=== PATIENT | male | born 1965 | race Caucasian/White ===

== ENCOUNTER 2017-06-07 12:37 | Inpatient (IN) | payer MEDICAID ==
--- NOTE | 2017-06-07 12:52 | ED Physician Chart ---
Chief Complaint/HPI - Patient Information Date Seen:: 06/07/17 Time Seen:: 12:52 Chief Complaint:: INCREASED WORK OF BRETHING, FALLING O2 SAT Historian:: EMS Past Medical History - Past Medical History Past Medical History: Asthma/COPD (patient was some form of chronic pulmonary disease.), Seizures Social History: Care Facility Employment:: Surgical tracheostomy. Family Medical History - Family Member Mother History Unknown: Yes Other Medical History: Pt non/verbal due to trach. Physical Exam - Physical Examination Other Gen/Cons comments:: Appears to be sleeping most of the time. Patient does not respond to verbal commands or questions. He appears to be well nourished. Head: Atraumatic Other Eyes comments:: The right pupil is deformed and dilated. The left pupil is round but did not seem to respond to light. Skin: Nl inspection, No rash, No skin lesions, No ecchymosis, Well hydrated, No lymphadenopathy ENMT: External ears, nose nl, Nasal exam nl Other ENMT comments:: Patient's is uncooperative with examination of the oropharynx by keeping his jaws clamped shut. Neck: Nontender, No JVD, No mass, No stridor Other Neck comments:: Tracheostomy tube in place. Other Respiratory comments:: The patient is on a ventilator and does not appear to be fighting it. Diffuse noisy breath sounds and I would characterize as rhonchi and moist rales. Cardio Vascular: RRR Other Cardio Vascular comments:: Cardiac auscultation was hampered by noisy breath sounds. I think the patient had a 3/6 systolic murmur which I heard best along the left sternal border. No gallops or rubs were noted. Patient has adequate pulses in all 4 extremities. GI: No tenderness/rebounding/guarding, No organomegaly, No hernia, Normal BS's, Nondistended, No mass/bruits, No McBurney tenderness Other GI comments:: Gastrostomy tube in the left upper quadrant. : No CVA tenderness Other comments:: External genitalia appear normal. Uncircumcised. It was a small amount of blood at the urethral meatus prior to catheterization for obtaining urine. Extremities: No tenderness or effusion, No edema Other Extremities comments:: The patient withdraws to noxious stimuli in all 4 extremities. Labs/Radiology/EKG Results - Radiology Results Results: Single view chest x-ray: No cardiomegaly. Tracheostomy tube in place. Patchy infiltrate in the left lower lung zones. Elevated left hemidiaphragm. Impression: Left lower lobe pneumonia. Laboratory Tests 06/07/17 06/07/17 06/07/17 13:25 13:28 13:28 WBC 12.2 H RBC 3.25 L Hgb 10.6 L Hct 31.6 L MCV 97.3 MCH 32.7 H MCHC Differential 33.6 RDW 16.4 Plt Count 40 L MPV 11.4 Band Neutrophils % 12 H Neutrophils (Manual) 65 Lymphocytes 17 L Monocytes 5 Metamyelocytes 1 H Platelet Estimate DECREASED PLATELETS Platelet Morphology NORMAL RBC Morph Micro Appear NORMAL Sodium Potassium Chloride Carbon Dioxide Anion Gap BUN Creatinine Est GFR ( Amer) Est GFR (Non-Af Amer) BUN/Creatinine Ratio Glucose Whole Bld Lactic Acid 1.81 Calcium Total Bilirubin AST ALT Alkaline Phosphatase Troponin I B-Natriuretic Peptide Total Protein Albumin Globulin Albumin/Globulin Ratio Urine Source RANDOM Urine Color NISA Urine Clarity CLOUDY Urine pH 5.5 Ur Specific [place] 1.020 Urine Protein >=300 Urine Glucose (UA) NEGATIVE Urine Ketones 15 H Urine Blood LARGE H Urine Nitrate POSITIVE H Urine Bilirubin MODERATE H Urine Urobilinogen 2.0 Ur Leukocyte Esterase MODERATE H Urine RBC >100 H Urine WBC 2-5 H Ur Epithelial Cells OCCASIONAL Urine Bacteria FEW 06/07/17 06/07/17 06/07/17 13:28 13:28 13:28 WBC RBC Hgb Hct MCV MCH MCHC Differential RDW Plt Count MPV Band Neutrophils % Neutrophils (Manual) Lymphocytes Monocytes Metamyelocytes Platelet Estimate Platelet Morphology RBC Morph Micro Appear Sodium 156 H Potassium 4.2 Chloride 130 H Carbon Dioxide 22.8 Anion Gap 7.4 BUN 49 H Creatinine 1.0 Est GFR ( Amer) > 60.0 Est GFR (Non-Af Amer) > 60.0 BUN/Creatinine Ratio 49.0 Glucose 107 H Whole Bld Lactic Acid Calcium 9.7 Total Bilirubin 1.2 H AST 38 ALT 27 Alkaline Phosphatase 168 H Troponin I 0.01 B-Natriuretic Peptide 91.8 Total Protein 8.2 Albumin 2.8 L Globulin 5.4 Albumin/Globulin Ratio 0.5 L Urine Source Urine Color Urine Clarity Urine pH Ur Specific [place] Urine Protein Urine Glucose (UA) Urine Ketones Urine Blood Urine Nitrate Urine Bilirubin Urine Urobilinogen Ur Leukocyte Esterase Urine RBC Urine WBC Ur Epithelial Cells Urine Bacteria There is a mild leukocytosis of 12.2. There is moderate anemia with a hemoglobin in the 10 range. Thrombocytopenia in the 40,000 range. Mild elevation of the alkaline phosphatase at 168. Hyper 90 treatment with a sodium of 156. Whole blood lactic acid is within normal limits. - EKG Interpretations EKG Time:: 14:03 Rate & Rhythm: sinus rhythm at a rate of 87 with no ectopy. [place]: normal axis Intervals: normal [place] interval. Normal QRS duration. Normal QT interval. Comments:: No ST segment elevation or depression. T waves are normal. Impression: Normal EKG. Laboratory Tests 06/07/17 06/07/17 06/07/17 13:25 13:28 13:28 WBC 12.2 H RBC 3.25 L Hgb 10.6 L Hct 31.6 L MCV 97.3 MCH 32.7 H MCHC Differential 33.6 RDW 16.4 Plt Count 40 L MPV 11.4 Band Neutrophils % 12 H Neutrophils (Manual) 65 Lymphocytes 17 L Monocytes 5 Metamyelocytes 1 H Platelet Estimate DECREASED PLATELETS Platelet Morphology NORMAL RBC Morph Micro Appear NORMAL Sodium Potassium Chloride Carbon Dioxide Anion Gap BUN Creatinine Est GFR ( Amer) Est GFR (Non-Af Amer) BUN/Creatinine Ratio Glucose Whole Bld Lactic Acid 1.81 Calcium Total Bilirubin AST ALT Alkaline Phosphatase Troponin I B-Natriuretic Peptide Total Protein Albumin Globulin Albumin/Globulin Ratio Urine Source RANDOM Urine Color NISA Urine Clarity CLOUDY Urine pH 5.5 Ur Specific [place] 1.020 Urine Protein >=300 Urine Glucose (UA) NEGATIVE Urine Ketones 15 H Urine Blood LARGE H Urine Nitrate POSITIVE H Urine Bilirubin MODERATE H Urine Urobilinogen 2.0 Ur Leukocyte Esterase MODERATE H Urine RBC >100 H Urine WBC 2-5 H Ur Epithelial Cells OCCASIONAL Urine Bacteria FEW 06/07/17 06/07/17 06/07/17 13:28 13:28 13:28 WBC RBC Hgb Hct MCV MCH MCHC Differential RDW Plt Count MPV Band Neutrophils % Neutrophils (Manual) Lymphocytes Monocytes Metamyelocytes Platelet Estimate Platelet Morphology RBC Morph Micro Appear Sodium 156 H Potassium 4.2 Chloride 130 H Carbon Dioxide 22.8 Anion Gap 7.4 BUN 49 H Creatinine 1.0 Est GFR ( Amer) > 60.0 Est GFR (Non-Af Amer) > 60.0 BUN/Creatinine Ratio 49.0 Glucose 107 H Whole Bld Lactic Acid Calcium 9.7 Total Bilirubin 1.2 H AST 38 ALT 27 Alkaline Phosphatase 168 H Troponin I 0.01 B-Natriuretic Peptide 91.8 Total Protein 8.2 Albumin 2.8 L Globulin 5.4 Albumin/Globulin Ratio 0.5 L Urine Source Urine Color Urine Clarity Urine pH Ur Specific [place] Urine Protein Urine Glucose (UA) Urine Ketones Urine Blood Urine Nitrate Urine Bilirubin Urine Urobilinogen Ur Leukocyte Esterase Urine RBC Urine WBC Ur Epithelial Cells Urine Bacteria Assessment - Assessment General Assessment: CASE SUMMARY: This 52 YO MALE WAS SENT TO THE ED BECAUSE OF INCREASED WORK OF BREATHING AND FALLING O2 SATS. AT THE TIME OF ADMISSION HIS TEMP WAS 103.0 AND HE WAS BOARDER LINE HYPOTENSIVE. TH CXR SHOWED AN INFILTRATE IN THE LT LOWER LUNG ZONE CONSISTENT WITH PNEUMONIA. THE PT WAS TREATED WITH 30cc/kg NORMAL SALINE IV, 2 GRAMS OF CEFTRIAXONE IV AND 750 MG OF LEVAQUIN. HIS BLOOD PRESSURE CAME UP AND HIS PULSE RATE CAME DOWN. THE PT IS BEING ADMITTED TO THE ICU BECAUSE HE IS VENTALATOR DEPENDENT. MDM DDX INCREASED WORK OF BREATHING AND FALLING O2 SATURATION: NOT PULMONARY EDEMA BASED ON EXAM AND CXR. NOT PNEUMOTHORAX BASED ON CXR. NOT PLEURAL EFFUSION BASED ON CXR. ED Septic Shock - . Is Septic Shock (SBP<90, OR Lactate>4 mmol\L) present?: No Reassessment (Disposition) - Reassessment Reassessment Condition:: Improved - Diagnosis Diagnosis:: LEFT LOWER LOBE PNEUMONIA ED Discharge Plan - Patient Disposition Admit/Discharge/Transfer: Acute Care w/in this hosp
[2017-06-07] MEDS ORDERED: cefTRIAXone 2 GM in Sodium Chloride 0.9% 100 ML IV ONE (13:20)
[2017-06-07] MEDS ORDERED: Levofloxacin 750mg/150mL 750 MG/150 ML BAG IV ONE ×2 (13:21→14:00)
[2017-06-07] MEDS ORDERED: SODIUM CHLORIDE 0.9% IV ONE (13:33)
[2017-06-07 13:37] LABS: HEMATOCRIT 31.6 % (39.0-49.0); HEMOGLOBIN 10.6 gm/dL (13.2-17.3); MEAN CELL VOLUME 97.3 fl (80-99); MEAN CORPUSCULAR HEMOGLOBIN 32.7 pg (26.0-30.0); MEAN CORPUSCULAR HGB CONC 33.6 pg (28.0-36.0); MEAN PLATELET VOLUME 11.4 fl; RED BLOOD COUNT 3.25 Mil/cmm (4.30-5.70); RED CELL DISTRIBUTION WIDTH 16.4 % (11.5-20.0)
[2017-06-07 13:38] LABS: PLATELET COUNT 40 Th/cmm (150-400); WHITE BLOOD COUNT 12.2 Th/cmm (4.8-10.8)
[2017-06-07 13:53] LABS: ALB/GLOB RATIO 0.5 (1.0-1.8); ALKALINE PHOSPHATASE 168 U/L (34-104); ANION GAP 7.4 (7.0-16.0); BILIRUBIN,TOTAL 1.2 mg/dL (0.3-1.0); BUN - UREA NITROGEN 49 mg/dL (7-25); CALCIUM SERUM 9.7 mg/dL (8.6-10.3); CARBON DIOXIDE 22.8 mEq/L (21.0-31.0); CHLORIDE 130 mEq/L (98-107); GLUCOSE 107 mg/dL (70-105); POTASSIUM SERUM 4.2 mEq/L (3.5-5.1); SGOT 38 U/L (13-39); SGPT/ALT 27 U/L (7-52); SODIUM SERUM 156 mEq/L (136-145)
[2017-06-07 14:31] LABS: BAND NEUTROPHILE 12 % (0-10); METAMYELOCYTE 1 % (0-0); NEUTROPHILS 65 % (40-80); PLATELET ESTIMATE DECREASED PLATELETS (NORMAL); PLATELET MORPHOLOGY NORMAL (NORMAL); TOTAL CELLS COUNTED 100
[2017-06-07 14:44] LABS: URINE BILIRUBIN MODERATE (NEGATIVE); URINE BLOOD LARGE (NEGATIVE); URINE GLUCOSE (UA) NEGATIVE (NEGATIVE); URINE KETONE 15 mg/dL (NEGATIVE); URINE PH 5.5 (4.6 - 8.0); URINE PROTEIN >=300 mg/dL (NEGATIVE)
[2017-06-07 15:03] LABS: URINE COLOR AMBER
[2017-06-07 15:08] LABS: URINE BACTERIA FEW /hpf (NONE SEEN); URINE EPITHELIAL CELLS OCCASIONAL /lpf (FEW); URINE RBC >100 /hpf (0-5)
[2017-06-07] MEDS ORDERED: Magnesium Hydroxide (MOM) 30 mL UDC GT PRN (19:18)
[2017-06-07] MEDS ORDERED: Fleet Enema 135 mL RC PRN (19:18)
--- NOTE | 2017-06-07 20:50 | Internal Medicine Prog Note ---
Internal Medicine Subjective - Subjective Patient seen and examined:: with staff Patient is:: non-verbal, arousable Patient Complaints of:: congestion Internal Medicine Objective - Results Result Diagrams: 06/08/17 04:59 06/08/17 04:59 Recent Labs: Laboratory Last Values WBC 12.2 Th/cmm (4.8-10.8) H 06/07/17 13:28 RBC 3.25 Mil/cmm (4.30-5.70) L 06/07/17 13:28 Hgb 10.6 gm/dL (13.2-17.3) L 06/07/17 13:28 Hct 31.6 % (39.0-49.0) L 06/07/17 13:28 MCV 97.3 fl (80-99) 06/07/17 13:28 MCH 32.7 pg (26.0-30.0) H 06/07/17 13:28 MCHC Differential 33.6 pg (28.0-36.0) 06/07/17 13:28 RDW 16.4 % (11.5-20.0) 06/07/17 13:28 Plt Count 40 Th/cmm (150-400) L 06/07/17 13:28 MPV 11.4 fl 06/07/17 13:28 Band Neutrophils % 12 % (0-10) H 06/07/17 13:28 Neutrophils (Manual) 65 % (40-80) 06/07/17 13:28 Lymphocytes 17 % (20-50) L 06/07/17 13:28 Monocytes 5 % (2-10) 06/07/17 13:28 Metamyelocytes 1 % (0-0) H 06/07/17 13:28 Platelet Estimate DECREASED PLATELETS (NORMAL) 06/07/17 13:28 Platelet Morphology NORMAL (NORMAL) 06/07/17 13:28 RBC Morph Micro Appear NORMAL (NORMAL) 06/07/17 13:28 Sodium 156 mEq/L (136-145) H 06/07/17 13:28 Potassium 4.2 mEq/L (3.5-5.1) 06/07/17 13:28 Chloride 130 mEq/L (98-107) H 06/07/17 13:28 Carbon Dioxide 22.8 mEq/L (21.0-31.0) 06/07/17 13:28 Anion Gap 7.4 (7.0-16.0) 06/07/17 13:28 BUN 49 mg/dL (7-25) H 06/07/17 13:28 Creatinine 1.0 mg/dL (0.7-1.3) 06/07/17 13:28 Est GFR ( Amer) > 60.0 ml/min (>90) 06/07/17 13:28 Est GFR (Non-Af Amer) > 60.0 ml/min 06/07/17 13:28 BUN/Creatinine Ratio 49.0 06/07/17 13:28 Glucose 107 mg/dL (70-105) H 06/07/17 13:28 Whole Bld Lactic Acid 1.81 mmol/L (0.60-1.99) 06/07/17 13:28 Calcium 9.7 mg/dL (8.6-10.3) 06/07/17 13:28 Total Bilirubin 1.2 mg/dL (0.3-1.0) H 06/07/17 13:28 AST 38 U/L (13-39) 06/07/17 13:28 ALT 27 U/L (7-52) 06/07/17 13:28 Alkaline Phosphatase 168 U/L (34-104) H 06/07/17 13:28 Troponin I 0.01 ng/mL (0.01-0.05) 06/07/17 13:28 B-Natriuretic Peptide 91.8 pg/mL (5.0-100.0) 06/07/17 13:28 Total Protein 8.2 gm/dL (6.0-8.3) 06/07/17 13:28 Albumin 2.8 gm/dL (4.2-5.5) L 06/07/17 13:28 Globulin 5.4 gm/dL 06/07/17 13:28 Albumin/Globulin Ratio 0.5 (1.0-1.8) L 06/07/17 13:28 Urine Source RANDOM 06/07/17 13:25 Urine Color NISA 06/07/17 13:25 Urine Clarity CLOUDY (CLEAR) 06/07/17 13:25 Urine pH 5.5 (4.6 - 8.0) 06/07/17 13:25 Ur Specific [place] 1.020 (1.005-1.030) 06/07/17 13:25 Urine Protein >=300 mg/dL (NEGATIVE) 06/07/17 13:25 Urine Glucose (UA) NEGATIVE mg/dL (NEGATIVE) 06/07/17 13:25 Urine Ketones 15 mg/dL (NEGATIVE) H 06/07/17 13:25 Urine Blood LARGE (NEGATIVE) H 06/07/17 13:25 Urine Nitrate POSITIVE (NEGATIVE) H 06/07/17 13:25 Urine Bilirubin MODERATE (NEGATIVE) H 06/07/17 13:25 Urine Urobilinogen 2.0 E.U./dL (0.2 - 1.0) 06/07/17 13:25 Ur Leukocyte Esterase MODERATE (NEGATIVE) H 06/07/17 13:25 Urine RBC >100 /hpf (0-5) H 06/07/17 13:25 Urine WBC 2-5 /hpf (0-5) H 06/07/17 13:25 Ur Epithelial Cells OCCASIONAL /lpf (FEW) 06/07/17 13:25 Urine Bacteria FEW /hpf (NONE SEEN) 06/07/17 13:25 - Physical Exam Vitals and I&O: Vital Signs Temp 98.7 F 06/07/17 19:51 Pulse 79 06/07/17 20:28 Resp 18 06/07/17 19:51 BP 102/45 06/07/17 19:51 Pulse Ox 97 06/07/17 20:28 Active Medications: Current Medications Albuterol/Ipratropium (Duoneb Neb) 3 ml HHN Q4HR [place] Stop: 08/06/17 19:59 Amlodipine Besylate (Norvasc) 5 mg GT Q12H [place] Stop: 08/06/17 19:14 Atorvastatin Calcium (Lipitor) 10 mg GT HS [place] PRN Reason: Protocol Stop: 08/06/17 20:59 Bisacodyl (Dulcolax 10 Mg Supp) 10 mg RC DAILY PRN PRN Reason: Constipation Stop: 08/06/17 19:17 Chlorhexidine Gluconate (Peridex) 15 ml MM Q12H [place] Stop: 08/06/17 19:29 Folic Acid (Folate) mg GT DAILY [place] Stop: 08/07/17 08:59 Hydralazine HCl (Apresoline) 50 mg GT Q8H [place] Stop: 08/06/17 19:29 Ceftriaxone Sodium 2 gm/ (Sodium Chloride) 100 mls @ 100 mls/hr IV X1 ONE Stop: 06/07/17 14:19 Last Admin: 06/07/17 16:08 Dose: 100 mls/hr Levofloxacin (Levaquin Pb) 750 mg in 150 mls @ 100 mls/hr IV X1 ONE Stop: 06/07/17 14:50 Last Admin: 06/07/17 14:00 Dose: 100 mls/hr Sodium Chloride (Nacl 0.9%) 2,289 mls @ 0 mls/hr IV .Q0M ONE PRN Reason: Wide Open Stop: 06/07/17 13:34 Last Admin: 06/07/17 13:59 Dose: 1,000 mls/hr Sodium Chloride (Nacl 0.9%) 1,000 mls @ 150 mls/hr IV .Q6H40M [place] Stop: 08/06/17 19:04 Levetiracetam (Keppra) 1,000 mg GT Q8H [place] Stop: 08/06/17 19:29 Magnesium Hydroxide (Milk Of Magnesia) 30 ml GT HS PRN PRN Reason: Constipation Stop: 08/06/17 19:17 Miscellaneous (Calcium Carbonate/Vitamin D2 [Oyster Shell Calcium-Vit D Tab]) 1 tab GT DAILY [place] Stop: 08/07/17 08:59 Miscellaneous (Clonazepam [Clonazepam*]) 2 mg GT DAILY [place] Stop: 08/07/17 08:59 Miscellaneous (Dextran 70/Hypromellose/Pf [Artificial Tears Drops]) 2 each OP Q6H PRN PRN Reason: eye dryness Miscellaneous (Dextrose 5 %-0.45 % Nacl [Dextrose 5%-0.45% Nacl Iv Soln]) 1, 000 ml IV DAILY [place] Stop: 08/07/17 08:59 Miscellaneous (Docusate Sodium [Pedia-Lax Stool Softener]) 100 mg GT BID [place] Stop: 08/07/17 08:59 Miscellaneous (Ferrous Sulfate [Ferrous Sulfate]) 330 mg GT BID [place] Stop: 08/07/17 08:59 Miscellaneous (Lactulose [Lactulose]) 30 gm GT Q8H [place] Stop: 08/06/17 19:29 Miscellaneous (Magnesium Sulfate [Magnesium Sulfate]) 400 mg GT DAILY [place] Stop: 08/07/17 08:59 Miscellaneous (Metoprolol Tartrate [Metoprolol Tartrate]) 100 mg GT Q12H [facility] Stop: 08/06/17 19:29 Miscellaneous (Omeprazole [Omeprazole]) 40 mg GT DAILY [facility] Stop: 08/07/17 08:59 Miscellaneous (Phytonadione [Vitamin K]) 100 mcg GT DAILY [facility] Stop: 08/07/17 08:59 Miscellaneous (Potassium Chloride [Klor-Con]) 20 meq GT BID [facility] Stop: 08/07/17 08:59 Miscellaneous (Rifaximin [Xifaxan]) 550 mg GT BID [facility] Stop: 08/07/17 08:59 Propranolol HCl (Inderal) 20 mg GT TID [facility] Stop: 08/06/17 20:59 Pyridoxine HCl (Vitamin B6) 100 mg GT DAILY [facility] Stop: 08/07/17 08:59 Sodium Phosphate (Fleet Enema) 135 ml RC Q48H PRN PRN Reason: IF DULCOLAX IS INEFFECTIVE Stop: 08/06/17 19:17 Thiamine HCl (Vitamin B1) 100 mg GT DAILY [facility] Stop: 08/07/17 08:59 Valproate Sodium (Depakene) 500 mg GT TID [facility] PRN Reason: Protocol Stop: 08/06/17 20:59 General: obtunded HEENT: NC/AT Neck: Supple Lungs: CTAB Abdomen: soft, +GT Extremities: clear Neurological: muscle weakness, bedbound Internal Medicine Assmt/Plan - Assessment Assessment: s/p respiratory failure pnumonia s/p trch and peg trmors h/o alcoholism h/o sizures - Plan Plan: iv antibiotics nuerology ,pul, gi consults
[2017-06-07] MEDS: Sodium Chloride 0.9% 1,000 ML IV SCH (21:06)
[2017-06-07] MEDS: Ferrous Sulfate 300 MG/5 ML UDC GT SCH (21:33)
[2017-06-07] MEDS: Lactulose 10 Gm/15 mL 30mL UDC GT SCH (21:34)
[2017-06-07] MEDS: Levetiracetam 500 mg/5mL 5mL UDC GT SCH (21:35)
[2017-06-07] MEDS: Atorvastatin Calcium 10 MG TAB GT SCH (21:38)
[2017-06-07] MEDS: Docusate Sodium 100 mg/10 mL UD GT SCH (21:41)
[2017-06-07] MEDS: Chlorhexidine Gluconate 0.12% 480mL Bottle MM SCH (21:41)
--- NOTE | 2017-06-07 21:54 | History & Physical ---
ADMIT DATE: 06/07/2017 HISTORY OF PRESENT ILLNESS: The patient is known to me from taking care of him at rehabilitation. 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 The patient is known to have history of asthma, history of COPD. Apparently for the last few days, he has been having shortness of breath and falling oxygen saturation. They called me and also the patient had severe dehydration, hyponatremia, and renal failure. The patient was transferred to the ER. The patient actually came to [facility] Emergency Room where he was seen and found to have pneumonia and increasing renal failure and hyponatremia, was admitted. PAST MEDICAL HISTORY: As enumerated above, but not much history could be obtained from the patient. REVIEW OF SYSTEMS: Difficult. PHYSICAL EXAMINATION: GENERAL: The patient appears to be lethargic, not asking questions and right pupil is dilated somewhat. NECK: Supple. No JVD. Trachea has a tracheostomy in place. LUNGS: The patient has ventilator lungs. Bilateral rhonchi, rales with mostly on the right side. Gastrotomy in the left upper quadrant. GASTROINTESTINAL: Normal. EXTREMITIES: Revealed no tenderness. The patient was tremulous. The patient is lethargic. IMAGING AND LABORATORY DATA: Chest x-ray showed cardiomegaly. WBC was 12.2, hemoglobin 10.6 and his urine also showed cloudy large blood as well as positive nitrite. DIAGNOSES: Sepsis, urinary tract infection, right lower lobe and left lower lobe infiltrate, pneumonia, toxic metabolic encephalopathy, and rule out hepatic encephalopathy, anemia, leukocytosis, history of tremors, history of status post trach and status post PEG status. PLAN: The patient is being admitted and I will start IV antibiotics therapy. We will do ammonia to see whether in the lactulose. We will continue his present medications and we will also have Dr. Landers see the patient for Pulmonary and also we will have Infectious Disease, Dr. Landers see the patient and I will follow the patient. JOB# [id number] [facility] HEALTHVenkata
[2017-06-07] MEDS: Albuterol/Ipratropium Neb 3 ML AERS HHN SCH (22:56)
[2017-06-08] MEDS: Albuterol/Ipratropium Neb 3 ML AERS HHN SCH ×6 (03:00→22:46)
[2017-06-08] MEDS: Sodium Chloride 0.9% 1,000 ML IV SCH (03:57)
[2017-06-08] MEDS: Lactulose 10 Gm/15 mL 30mL UDC GT SCH ×3 (05:16→21:31)
[2017-06-08] MEDS: Levetiracetam 500 mg/5mL 5mL UDC GT SCH ×3 (05:21→21:36)
[2017-06-08 06:48] LABS: MEAN CELL VOLUME 98.3 fl (80-99); MEAN CORPUSCULAR HEMOGLOBIN 32.8 pg (26.0-30.0); MEAN CORPUSCULAR HGB CONC 33.3 pg (28.0-36.0); MEAN PLATELET VOLUME 11.2 fl; RED CELL DISTRIBUTION WIDTH 16.8 % (11.5-20.0)
[2017-06-08 07:11] LABS: ANION GAP 6.1 (7.0-16.0); BUN - UREA NITROGEN 43 mg/dL (7-25); BUN/CREATININE RATIO 61.4; CALCIUM SERUM 8.7 mg/dL (8.6-10.3); CARBON DIOXIDE 21.4 mEq/L (21.0-31.0); CHLORIDE 135 mEq/L (98-107); CREATININE - SERUM 0.7 mg/dL (0.7-1.3); GLUCOSE 125 mg/dL (70-105); POTASSIUM SERUM 3.5 mEq/L (3.5-5.1)
[2017-06-08 07:51] LABS: HEMATOCRIT 25.6 % (39.0-49.0); HEMOGLOBIN 8.5 gm/dL (13.2-17.3); PLATELET COUNT 27 Th/cmm (150-400); WHITE BLOOD COUNT 5.7 Th/cmm (4.8-10.8)
[2017-06-08 07:52] LABS: SODIUM SERUM 159 mEq/L (136-145)
[2017-06-08] MEDS ORDERED: Sodium Chloride 0.45% 1,000 ML IV SCH (08:02)
--- NOTE | 2017-06-08 08:40 | Diagnostic Imaging Report ---
CHEST X-RAY: AP view INDICATION: Decreased low O2 sats COMPARISON: None FINDINGS: Tracheostomy tube is noted. Mild chronic lung changes are seen with increased left basal lung markings. No focal consolidation or effusions. Heart size is normal. Degenerative changes of the spine are noted. There is mild elevation of the left hemidiaphragm. There appears to be external material overlying the left hemithorax. IMPRESSION: Increased left basal lung markings which may be due to subsegmental atelectasis, however, developing infiltrate cannot be excluded. Clinical correlation and follow-up is recommended.
[2017-06-08] MEDS: Potassium Chloride Elixir 20 mEq /15 mL UDC GT SCH ×2 (08:43→17:13)
[2017-06-08] MEDS: Ferrous Sulfate 300 MG/5 ML UDC GT SCH ×2 (08:44→17:13)
[2017-06-08] MEDS: Calcium Carb/Vit D 500 mg/200 U Tab GT SCH (08:44)
[2017-06-08] MEDS: Docusate Sodium 100 mg/10 mL UD GT SCH ×2 (08:46→17:13)
--- NOTE | 2017-06-08 08:55 | General Progress Note ---
Subjective - Review of Systems Events since last encounter: patient with no distress c/o sob cough generalized weakness Objective - Results Result Diagrams: 06/08/17 04:59 06/08/17 04:59 Recent Labs: Laboratory Last Values WBC 5.7 Th/cmm (4.8-10.8) D 06/08/17 04:59 RBC 2.60 Mil/cmm (4.30-5.70) L 06/08/17 04:59 Hgb 8.5 gm/dL (13.2-17.3) L D 06/08/17 04:59 Hct 25.6 % (39.0-49.0) L D 06/08/17 04:59 MCV 98.3 fl (80-99) 06/08/17 04:59 MCH 32.8 pg (26.0-30.0) H 06/08/17 04:59 MCHC Differential 33.3 pg (28.0-36.0) 06/08/17 04:59 RDW 16.8 % (11.5-20.0) 06/08/17 04:59 Plt Count 27 Th/cmm (150-400) L* D 06/08/17 04:59 MPV 11.2 fl 06/08/17 04:59 Band Neutrophils % 12 % (0-10) H 06/07/17 13:28 Neutrophils (Manual) 65 % (40-80) 06/07/17 13:28 Lymphocytes 17 % (20-50) L 06/07/17 13:28 Monocytes 5 % (2-10) 06/07/17 13:28 Metamyelocytes 1 % (0-0) H 06/07/17 13:28 Platelet Estimate DECREASED PLATELETS (NORMAL) 06/07/17 13:28 Platelet Morphology NORMAL (NORMAL) 06/07/17 13:28 RBC Morph Micro Appear NORMAL (NORMAL) 06/07/17 13:28 Sodium 159 mEq/L (136-145) H* 06/08/17 04:59 Potassium 3.5 mEq/L (3.5-5.1) 06/08/17 04:59 Chloride 135 mEq/L (98-107) H 06/08/17 04:59 Carbon Dioxide 21.4 mEq/L (21.0-31.0) 06/08/17 04:59 Anion Gap 6.1 (7.0-16.0) L 06/08/17 04:59 BUN 43 mg/dL (7-25) H 06/08/17 04:59 Creatinine 0.7 mg/dL (0.7-1.3) 06/08/17 04:59 Est GFR ( Amer) > 60.0 ml/min (>90) 06/08/17 04:59 Est GFR (Non-Af Amer) > 60.0 ml/min 06/08/17 04:59 BUN/Creatinine Ratio 61.4 06/08/17 04:59 Glucose 125 mg/dL (70-105) H 06/08/17 04:59 Whole Bld Lactic Acid 1.51 mmol/L (0.60-1.99) 06/08/17 04:59 Calcium 8.7 mg/dL (8.6-10.3) 06/08/17 04:59 Total Bilirubin 1.2 mg/dL (0.3-1.0) H 06/07/17 13:28 AST 38 U/L (13-39) 06/07/17 13:28 ALT 27 U/L (7-52) 06/07/17 13:28 Alkaline Phosphatase 168 U/L (34-104) H 06/07/17 13:28 Troponin I 0.01 ng/mL (0.01-0.05) 06/07/17 13:28 B-Natriuretic Peptide 91.8 pg/mL (5.0-100.0) 06/07/17 13:28 Total Protein 8.2 gm/dL (6.0-8.3) 06/07/17 13:28 Albumin 2.8 gm/dL (4.2-5.5) L 06/07/17 13:28 Globulin 5.4 gm/dL 06/07/17 13:28 Albumin/Globulin Ratio 0.5 (1.0-1.8) L 06/07/17 13:28 Urine Source RANDOM 06/07/17 13:25 Urine Color NISA 06/07/17 13:25 Urine Clarity CLOUDY (CLEAR) 06/07/17 13:25 Urine pH 5.5 (4.6 - 8.0) 06/07/17 13:25 Ur Specific [place] 1.020 (1.005-1.030) 06/07/17 13:25 Urine Protein >=300 mg/dL (NEGATIVE) 06/07/17 13:25 Urine Glucose (UA) NEGATIVE mg/dL (NEGATIVE) 06/07/17 13:25 Urine Ketones 15 mg/dL (NEGATIVE) H 06/07/17 13:25 Urine Blood LARGE (NEGATIVE) H 06/07/17 13:25 Urine Nitrate POSITIVE (NEGATIVE) H 06/07/17 13:25 Urine Bilirubin MODERATE (NEGATIVE) H 06/07/17 13:25 Urine Urobilinogen 2.0 E.U./dL (0.2 - 1.0) 06/07/17 13:25 Ur Leukocyte Esterase MODERATE (NEGATIVE) H 06/07/17 13:25 Urine RBC >100 /hpf (0-5) H 06/07/17 13:25 Urine WBC 2-5 /hpf (0-5) H 06/07/17 13:25 Ur Epithelial Cells OCCASIONAL /lpf (FEW) 06/07/17 13:25 Urine Bacteria FEW /hpf (NONE SEEN) 06/07/17 13:25 - Physical Exam Vitals and I&O: Vital Signs Temp 97.7 F 06/08/17 07:34 Pulse 71 06/08/17 08:47 Resp 23 06/08/17 07:34 BP 129/46 06/08/17 08:47 Pulse Ox 100 06/08/17 07:34 Intake & Output 06/07/17 06/08/17 06/08/17 18:59 06:59 18:59 Intake Total 1300 Balance 1300 Weight (lbs) 76.204 kg Intake: Intake, IV Amount 1300 Cefepime 1 gm In Dextrose 50 5% 50 ml @ 100 mls/hr IV Q8H [place] Rx#:[id number] Sodium Chloride 0.9% 1, 1000 000 ml @ 150 mls/hr IV . Q6H40M [place] Rx#:[id number] Other: # Bowel Movements 2 Stool Characteristics Liquid Active Medications: Current Medications Albuterol/Ipratropium (Duoneb Neb) 3 ml HHN Q4HR [facility] Stop: 08/06/17 19:59 Last Admin: 06/08/17 06:46 Dose: 3 ml Amlodipine Besylate (Norvasc) 5 mg GT Q12HR [place] Stop: 08/06/17 20:59 Last Admin: 06/08/17 08:47 Dose: Not Given Artificial Tears (Artificial Tears Ophth Soln) 2 drop EACH EYE Q6H PRN PRN Reason: eye dryness Stop: 08/06/17 20:54 Atorvastatin Calcium (Lipitor) 10 mg GT HS [place] PRN Reason: Protocol Stop: 08/06/17 20:59 Last Admin: 06/07/17 21:38 Dose: 10 mg Bisacodyl (Dulcolax 10 Mg Supp) 10 mg RC DAILY PRN PRN Reason: Constipation Stop: 08/06/17 19:17 Calcium/Vitamin D (Oscal W/Vitamin D) 1 tab GT DAILY [place] Stop: 08/07/17 08:59 Last Admin: 06/08/17 08:44 Dose: 1 tab Chlorhexidine Gluconate (Peridex) 15 ml MM Q12HR [place] Stop: 08/06/17 20:59 Last Admin: 06/07/17 21:41 Dose: 15 ml Clonazepam (Klonopin) 2 mg GT DAILY [place] Stop: 08/07/17 08:59 Last Admin: 06/08/17 08:44 Dose: 2 mg Docusate Sodium (Colace) 100 mg GT BID [place] Stop: 08/06/17 20:59 Last Admin: 06/08/17 08:46 Dose: Not Given Ferrous Sulfate (Iron) 300 mg GT BID [place] Stop: 08/06/17 20:59 Last Admin: 06/08/17 08:44 Dose: 300 mg Folic Acid (Folate) 2.5 mg GT DAILY [place] Stop: 08/07/17 08:59 Last Admin: 06/08/17 08:45 Dose: 2.5 mg Hydralazine HCl (Apresoline) 50 mg GT Q8HR [place] Stop: 08/06/17 20:59 Last Admin: 06/08/17 05:16 Dose: Not Given Cefepime HCl 1 gm/ Dextrose 50 mls @ 100 mls/hr IV Q8H [place] Stop: 08/07/17 00:59 Last Infusion: 06/08/17 01:38 Dose: Infused Sodium Chloride (Nacl 0.45%) 1,000 mls @ 150 mls/hr IV .Q6H40M [place] Stop: 08/07/17 08:01 Lactulose (Cephulac) 30 gm GT Q8HR [facility] Stop: 08/06/17 20:59 Last Admin: 06/08/17 05:16 Dose: Not Given Levetiracetam (Keppra) 1,000 mg GT Q8HR [facility] Stop: 08/06/17 20:59 Last Admin: 06/08/17 05:21 Dose: 1,000 mg Magnesium Hydroxide (Milk Of Magnesia) 30 ml GT HS PRN PRN Reason: Constipation Stop: 08/06/17 19:17 Magnesium Oxide (Mag-Oxide) 400 mg GT DAILY [place] Stop: 08/07/17 08:59 Last Admin: 06/08/17 08:44 Dose: 400 mg Metoprolol Tartrate (Lopressor) 100 mg GT Q12HR [facility] Stop: 08/06/17 20:59 Last Admin: 06/08/17 08:46 Dose: Not Given Miscellaneous (Dextrose 5 %-0.45 % Nacl [Dextrose 5%-0.45% Nacl Iv Soln]) 1, 000 ml IV DAILY [facility] Stop: 08/07/17 08:59 Miscellaneous (Phytonadione [Vitamin K]) 100 mcg GT DAILY [facility] Stop: 08/07/17 08:59 Miscellaneous (Rifaximin [Xifaxan]) 550 mg GT BID [facility] Stop: 08/07/17 08:59 Miscellaneous (Vancomycin Iv Per Pharmacy) 1 ea [facility] PRN PRN PRN Reason: PROTOCOL Stop: 08/07/17 07:59 Pantoprazole Sodium (Protonix) 40 mg GT DAILY [facility] Stop: 08/07/17 08:59 Last Admin: 06/08/17 08:45 Dose: 40 mg Potassium Chloride (Potassium Chloride Elixir) 20 meq GT BID [facility] Stop: 08/07/17 08:59 Last Admin: 06/08/17 08:43 Dose: 20 meq Propranolol HCl (Inderal) 20 mg GT TID [facility] Stop: 08/06/17 20:59 Last Admin: 06/08/17 08:45 Dose: Not Given Pyridoxine HCl (Vitamin B6) 100 mg GT DAILY [facility] Stop: 08/07/17 08:59 Last Admin: 06/08/17 08:44 Dose: 100 mg Sodium Phosphate (Fleet Enema) 135 ml RC Q48H PRN PRN Reason: IF DULCOLAX IS INEFFECTIVE Stop: 08/06/17 19:17 Thiamine HCl (Vitamin B1) 100 mg GT DAILY [facility] Stop: 08/07/17 08:59 Last Admin: 06/08/17 08:44 Dose: 100 mg Valproate Sodium (Depakene) 500 mg GT TID [facility] PRN Reason: Protocol Stop: 08/06/17 20:59 Last Admin: 06/08/17 08:44 Dose: 500 mg General: No acute distress Cardiovascular: Regular rate, Normal S1 Assessment/Plan - Problem List Patient Problems: All Active Problems ELEVATED NA+, AND BUN LEVELS (Acute) - Plan Plan: cpm
[2017-06-08] MEDS ORDERED: SODIUM CHLORIDE IV SCH (09:00)
[2017-06-08] MEDS ORDERED: DEXTROSE IV SCH (09:00)
[2017-06-08] MEDS ORDERED: Non-Formulary Item 1 EA (Rifaximin [Xifaxan] 550 MG) GT SCH (09:00)
[2017-06-08] MEDS ORDERED: [UNRECOGNIZED DRUG - OTHER] IV SCH (09:00)
[2017-06-08] MEDS ORDERED: Pantoprazole 40 mg/Packet GT SCH (09:00)
[2017-06-08] MEDS ORDERED: PHYTONADIONE 100 MCG GT SCH (09:00)
[2017-06-08] MEDS: Dextrose 5% 1,000 ML IV SCH ×2 (09:58→20:47)
[2017-06-08] MEDS: Chlorhexidine Gluconate 0.12% 480mL Bottle MM SCH ×2 (09:59→21:00)
[2017-06-08] MEDS ORDERED: Probiotic Screen MC PRN (10:43)
[2017-06-08 11:24] LABS: BAND NEUTROPHILE 8 % (0-10); EOSINOPHIL 4 % (0-5); METAMYELOCYTE 1 % (0-0); NEUTROPHILS 58 % (40-80); TOTAL CELLS COUNTED 100
[2017-06-08 11:25] LABS: ANISOCYTOSIS 1+; PLATELET ESTIMATE DECREASED PLATELETS (NORMAL); PLATELET MORPHOLOGY NORMAL (NORMAL)
--- NOTE | 2017-06-08 12:30 | Consultation ---
DATE OF CONSULTATION: 06/08/2017 HEMATOLOGY/ONCOLOGY CONSULTATION REFERRING PHYSICIAN: Dr. Ren. REASON FOR CONSULTATION: Thrombocytopenia and anemia. HISTORY OF PRESENT ILLNESS: The patient is a 52-year-old male on tracheostomy and gastric tube bleeding. He was admitted with urinary tract infection, lung infiltrates, started on antibiotics. He was found to have low platelets and platelets dropper further, today is 27,000, hemoglobin on admission 10.6 and now it is 8.5, therefore, I was asked to evaluate. History is gathered from the records. The patient is not providing any history. PAST MEDICAL HISTORY: Chronic liver disease, alcohol abuse in the past and history of seizure and coma, history of COPD. MEDICATIONS: Reviewed prior to admission and during this admission. PHYSICAL EXAMINATION: GENERAL: The patient is opening eyes, lethargic, noncommunicative. VITAL SIGNS: Stable. GENERAL: The patient is noncommunicative as mentioned with tracheostomy and gastric tube, Lackey catheter and no cherise bleeding from any site. LABORATORY DATA: White count 5.7, platelets 27. Albumin 2.8, bilirubin 1.2. Chest x-ray, left lower lobe infiltrate. ASSESSMENT: 1. Thrombocytopenia seems to be chronic secondary to chronic liver disease and cirrhosis. I will obtain liver ultrasound. I will start empiric trial of steroids and discontinue Protonix. 2. Anemia, which was since admission, may be secondary to dilutional component. I will obtain a stool occult blood and iron studies, B12 and folate level. I will also obtain coagulation panel. 3. The rest of the medical problems will be deferred to other consultants. Thank you Dr. Ren for the opportunity to participate in the care of this interesting case with you. JOB# [id number]
[2017-06-08] MEDS: Budesonide 0.5 Mg/2 mL Ud HHN SCH (19:10)
--- NOTE | 2017-06-08 21:30 | Progress Notes ---
DATE: 06/08/2017 REFERRING PHYSICIAN: Dr. Mikal Ro REASON FOR CONSULTATION: Help the patient with respiratory failure, acute on chronic. CONSULT NOTE: This is a 52-year-old gentleman who is on a chronic vent and has a history of significant hepatorenal disease with alcohol liver disease and also has been in hepatic coma numerous times in the past requiring ventilator care, has been having tracheostomy for the last couple of months and subsequently is being managed by local rehabilitation center. As the patient continued to have more shortness of breath, more desaturation, and worsening renal status and electrolyte imbalance, the patient was admitted for further care and necessary treatment. Unfortunately, meaningful detailed history is very difficult ____ not available. PAST MEDICAL HISTORY: 1. Chronic vent dependent. 2. History of recurrent alcoholic liver disease as well as alcoholic encephalopathy as well as renal failure. Other history is very minimal to nil at this particular time. PHYSICAL EXAMINATION: GENERAL: This is an elderly looking gentleman, opens eyes, but not in acute distress. VITAL SIGNS: The patient's recorded vitals: Temperature is 97.2, pulse rate is 70, blood pressure 122/70, saturation is 100% on 40% FIO2 on assist control mode of ventilator. HEAD: Essentially unremarkable. Pupils appear to be equal and reactive to light. Sclerae are icteric. Conjunctivae are slightly pallor. Oral cavity appears to show teeth, but could not open the mouth to see posterior pharyngeal fossa. NECK: Supple. No nodes in the neck could be palpated. Good bilateral carotid upstroke. There is a tracheostomy tube at the base of the neck and it appears to be okay. CHEST: Shows diminished air entry with occasional rhonchi. HEART: Regular. ABDOMEN: Slightly distended. EXTREMITIES: Shows some atrophic changes, but otherwise unremarkable. LABORATORY DATA: The patient's pertinent laboratory studies: White count is 12.2, hemoglobin 10.6. Sodium is 156, BUN is 49, creatinine 1.0, and the patient's lactic acid 1.8 and albumin is 2.8 and urine shows large blood with positive moderate bilirubin with a positive leukocyte esterase, though bacteria is a few. Chest x-ray to md shows some questionable infiltrate and/or atelectasis patchy on the left lung base, otherwise tracheostomy tube appears to be okay. ASSESSMENT: 1. The patient has acute on chronic respiratory failure, probably pneumonia, though underlying atelectasis. 2. Dehydration. 3. Previous alcoholic liver disease with renal failure as well as encephalopathy. PLANS AND SUGGESTIONS: We will go ahead and give aggressive inhalation treatment and mucolytic treatment. Await for the cultures to come back cardiac electrolytes, renal failure, etc. We will see how he does. We will follow up with repeat chest x-ray, blood gases, and culture and go from there. [facility]# [id number]
[2017-06-08] MEDS: Atorvastatin Calcium 10 MG TAB GT SCH (21:32)
--- NOTE | 2017-06-08 21:50 | Consultation ---
DATE OF CONSULTATION: 06/07/2017 PRIMARY CARE PHYSICIAN: Dr. Ren. REASON FOR CONSULTATION: This is a 52-year-old male, who was brought to the Emergency Room with a complaint of shortness of breath. HISTORY OF PRESENT ILLNESS: The patient is in vent-dependent respiratory failure, started having shortness of breath, and #[id number] was called. The patient was brought to the Emergency Room where the patient was evaluated and admitted to the ICU for [id number] respiratory failure. A stat infectious consultation was called and the patient was seen right away. The patient also had a fever up to 103 and was hypotensive. The patient's chest x-ray also showed an infiltrate on the left side consistent with pneumonia. The patient was given a fluid bolus and Rocephin along with Levaquin before transferring to the ICU. The patient is unable to provide a meaningful history. Discussed with the staff. PAST MEDICAL HISTORY: COPD, seizures. SOCIAL HISTORY: Nonsmoker. FAMILY HISTORY: Negative. ALLERGIES: None. REVIEW OF SYSTEMS: A 14-point review of systems is unable to obtain. No chest pain documented. The patient did have shortness of breath with fever. No nausea, vomiting, diarrhea. The patient does not have any history of HIV, hepatitis. Rest of the review of system reviewed and negative. PHYSICAL EXAMINATION: GENERAL: A well-nourished, well-developed male. VITAL SIGNS: Temperature 98.7, pulse 67, respirations 18, blood pressure 102/45. HEENT: Mild pallor, no icterus, ____. NECK: Supple, ____. No thyromegaly. No cervical lymph nodes. LUNGS: Breath sounds bilateral vesicular. CARDIOVASCULAR: S1, S2. ABDOMEN: Soft. Bowel sounds present. LYMPHATIC: No thyromegaly, no cervical lymph nodes. Pulses palpable in all the limbs. NEUROLOGIC: Reflexes are equal on both sides, plantars are flexor. LABORATORY DATA: White count is 12,000, hemoglobin is 10 g, platelet count ____. Chest x-ray reviewed and showed increased left basal markings and developing infiltrate. DIAGNOSES: Respiratory failure, acute on chronic. OTHER DIAGNOSES: Seizures and COPD. Renew home medications and control hypertension with amlodipine; hyperlipidemia, atorvastatin; constipation, bisacodyl; seizures controlled with Keppra; liver cirrhosis, rifaximin. PLAN: Continue vent support. Sputum cultures sent. The patient was started on vancomycin, Maxipime, and Levaquin. We will discontinue other antibiotics, supportive care, and rest of the care as ordered in CPOE. Thank you, Dr. Ren for this consultation. JOB# [id number]
--- NOTE | 2017-06-08 22:46 | Consultation ---
DATE OF CONSULTATION: 06/08/2017 This is a 52-year-old patient who was brought into the hospital from extended care facility because of problems associated with abnormal lab studies showing significant degree of azotemia, hypernatremia with increasing respiratory difficulties, decreasing O2 saturation, and altered level of consciousness. ER evaluation noted to have anemia, thrombocytopenia, concentrated urine of , urinary nitrates positive, hypernatremia 156, and BUN of 40 and 18, febrile and borderline blood pressure of 102/44 with the patient having a tracheostomy which he has been having that from an extended care facility. PHYSICAL EXAMINATION: VITAL SIGNS: Blood pressure 107/45, temperature 97.5, heart rate 73, and respiratory rate is 28. Opens his eyes. ____. CHEST: Clear to auscultation. HEART: Regular sinus. ABDOMEN: Soft. Bowel sounds are present. No organ enlargement. EXTREMITIES: No edema. GENITALIA: The presence of indwelling Lackey catheter and an uncircumcised urinating significant amount of fluid. Initial catheter insertion 200 mL was noted. Chest x-ray is essentially clear. IMPRESSION: 1. Hyperosmolar state and hypernatremia secondary to free water deficit in this patient. 2. Free water deficit secondary with dehydration. 3. Respiratory failure with tracheostomy. 4. Rule out possibility of septicemia in this patient with the patient coming in with temperature of 103, likely elevated lactic acid, positive for nitrate. We required blood cultures, which were originally obtained. Urine cultures for some reason were not sent and we are requesting that at this point. PLAN: Change ____ fluid to D5 and water at 155 mL per hour. Aware of the presence of G-tube feeding of 55 which results about 200 mL per hour of fluid. There is no evidence of fluid overload and this patient required massive free water administration at this time. Cultures are requested. Antibiotic review on admission. This patient was given Rocephin and Levaquin. He required prophylactic antibiotics and the cultures were obtained which will direct us to the proper antibiotic therapy at this point. JOB# [id number]
[2017-06-09] MEDS: Albuterol/Ipratropium Neb 3 ML AERS HHN SCH ×7 (02:55→22:19)
[2017-06-09 05:23] LABS: MEAN CORPUSCULAR HGB CONC 34.1 pg (28.0-36.0); RED CELL DISTRIBUTION WIDTH 15.9 % (11.5-20.0)
[2017-06-09] MEDS: Levetiracetam 500 mg/5mL 5mL UDC GT SCH ×3 (05:38→21:34)
[2017-06-09] MEDS: Lactulose 10 Gm/15 mL 30mL UDC GT SCH ×3 (05:38→18:00)
[2017-06-09 05:43] LABS: HEMATOCRIT 24.9 % (39.0-49.0); HEMOGLOBIN 8.5 gm/dL (13.2-17.3); MEAN CORPUSCULAR HEMOGLOBIN 33.1 pg (26.0-30.0); MEAN PLATELET VOLUME 10.9 fl; RED BLOOD COUNT 2.56 Mil/cmm (4.30-5.70)
[2017-06-09 05:50] LABS: ALB/GLOB RATIO 0.5 (1.0-1.8); ALKALINE PHOSPHATASE 171 U/L (34-104); ANION GAP 6.3 (7.0-16.0); BILIRUBIN,TOTAL 0.8 mg/dL (0.3-1.0); BUN - UREA NITROGEN 25 mg/dL (7-25); BUN/CREATININE RATIO 41.7; CALCIUM SERUM 8.6 mg/dL (8.6-10.3); CARBON DIOXIDE 22.7 mEq/L (21.0-31.0); CHLORIDE 122 mEq/L (98-107); CREATININE - SERUM 0.6 mg/dL (0.7-1.3); GLUCOSE 121 mg/dL (70-105); MAGNESIUM 2.2 mg/dL (1.9-2.7); SGOT 34 U/L (13-39); SGPT/ALT 20 U/L (7-52); SODIUM SERUM 148 mEq/L (136-145)
[2017-06-09 06:02] LABS: WHITE BLOOD COUNT 3.6 Th/cmm (4.8-10.8)
[2017-06-09] MEDS: Dextrose 5% 1,000 ML IV SCH ×2 (07:33→21:08)
[2017-06-09] MEDS ORDERED: Potassium Chloride Elixir 20 mEq /15 mL UDC GT ONE (08:00)
--- NOTE | 2017-06-09 08:02 | General Progress Note ---
Subjective - Review of Systems Subjective: on vent, afebrile nad Objective - Results Result Diagrams: 06/09/17 09:30 06/09/17 05:07 Recent Labs: Laboratory Last Values WBC 3.6 Th/cmm (4.8-10.8) L D 06/09/17 05:07 RBC 2.56 Mil/cmm (4.30-5.70) L 06/09/17 05:07 Hgb 8.5 gm/dL (13.2-17.3) L 06/09/17 05:07 Hct 24.9 % (39.0-49.0) L 06/09/17 05:07 MCV 97.0 fl (80-99) 06/09/17 05:07 MCH 33.1 pg (26.0-30.0) H 06/09/17 05:07 MCHC Differential 34.1 pg (28.0-36.0) 06/09/17 05:07 RDW 15.9 % (11.5-20.0) 06/09/17 05:07 Plt Count 21 Th/cmm (150-400) L* 06/09/17 05:07 MPV 10.9 fl 06/09/17 05:07 Band Neutrophils % 8 % (0-10) 06/08/17 04:59 Neutrophils (Manual) 58 % (40-80) 06/08/17 04:59 Lymphocytes 24 % (20-50) 06/08/17 04:59 Monocytes 5 % (2-10) 06/08/17 04:59 Eosinophils 4 % (0-5) 06/08/17 04:59 Metamyelocytes 1 % (0-0) H 06/08/17 04:59 Nucleated RBCs 1.0 % (0-0) H 06/08/17 04:59 Platelet Estimate DECREASED PLATELETS (NORMAL) 06/08/17 04:59 Platelet Morphology NORMAL (NORMAL) 06/08/17 04:59 Anisocytosis 1+ 06/08/17 04:59 RBC Morph Micro Appear ABNORMAL (NORMAL) 06/08/17 04:59 Sodium 148 mEq/L (136-145) H 06/09/17 05:07 Potassium 3.0 mEq/L (3.5-5.1) L 06/09/17 05:07 Chloride 122 mEq/L (98-107) H 06/09/17 05:07 Carbon Dioxide 22.7 mEq/L (21.0-31.0) 06/09/17 05:07 Anion Gap 6.3 (7.0-16.0) L 06/09/17 05:07 BUN 25 mg/dL (7-25) 06/09/17 05:07 Creatinine 0.6 mg/dL (0.7-1.3) L 06/09/17 05:07 Est GFR ( Amer) > 60.0 ml/min (>90) 06/09/17 05:07 Est GFR (Non-Af Amer) > 60.0 ml/min 06/09/17 05:07 BUN/Creatinine Ratio 41.7 06/09/17 05:07 Glucose 121 mg/dL (70-105) H 06/09/17 05:07 Whole Bld Lactic Acid 1.51 mmol/L (0.60-1.99) 06/08/17 04:59 Calcium 8.6 mg/dL (8.6-10.3) 06/09/17 05:07 Phosphorus 2.7 mg/dL (2.5-5.0) 06/08/17 04:59 Magnesium 2.2 mg/dL (1.9-2.7) 06/09/17 05:07 Total Bilirubin 0.8 mg/dL (0.3-1.0) 06/09/17 05:07 Direct Bilirubin 0.40 mg/dL (0.0-0.2) H 06/09/17 05:07 AST 34 U/L (13-39) 06/09/17 05:07 ALT 20 U/L (7-52) 06/09/17 05:07 Alkaline Phosphatase 171 U/L (34-104) H 06/09/17 05:07 Ammonia 64 umol/L (16-53) H 06/09/17 05:07 Troponin I 0.01 ng/mL (0.01-0.05) 06/07/17 13:28 B-Natriuretic Peptide 91.8 pg/mL (5.0-100.0) 06/07/17 13:28 Total Protein 6.8 gm/dL (6.0-8.3) 06/09/17 05:07 Albumin 2.3 gm/dL (4.2-5.5) L 06/09/17 05:07 Globulin 4.5 gm/dL 06/09/17 05:07 Albumin/Globulin Ratio 0.5 (1.0-1.8) L 06/09/17 05:07 Urine Source RANDOM 06/07/17 13:25 Urine Color NISA 06/07/17 13:25 Urine Clarity CLOUDY (CLEAR) 06/07/17 13:25 Urine pH 5.5 (4.6 - 8.0) 06/07/17 13:25 Ur Specific [place] 1.020 (1.005-1.030) 06/07/17 13:25 Urine Protein >=300 mg/dL (NEGATIVE) 06/07/17 13:25 Urine Glucose (UA) NEGATIVE mg/dL (NEGATIVE) 06/07/17 13:25 Urine Ketones 15 mg/dL (NEGATIVE) H 06/07/17 13:25 Urine Blood LARGE (NEGATIVE) H 06/07/17 13:25 Urine Nitrate POSITIVE (NEGATIVE) H 06/07/17 13:25 Urine Bilirubin MODERATE (NEGATIVE) H 06/07/17 13:25 Urine Urobilinogen 2.0 E.U./dL (0.2 - 1.0) 06/07/17 13:25 Ur Leukocyte Esterase MODERATE (NEGATIVE) H 06/07/17 13:25 Urine RBC >100 /hpf (0-5) H 06/07/17 13:25 Urine WBC 2-5 /hpf (0-5) H 06/07/17 13:25 Ur Epithelial Cells OCCASIONAL /lpf (FEW) 06/07/17 13:25 Urine Bacteria FEW /hpf (NONE SEEN) 06/07/17 13:25 Ur Random Sodium 119 mmol/L 06/08/17 18:16 - Physical Exam Vitals and I&O: Vital Signs Temp 98.6 F 06/09/17 04:00 Pulse 67 06/09/17 07:00 Resp 15 06/09/17 07:00 BP 124/52 06/09/17 07:00 Pulse Ox 100 06/09/17 07:00 Intake & Output 06/08/17 06/09/17 06/09/17 18:59 06:59 18:59 Intake Total 1350 1300 335 Output Total 850 600 Balance 500 1300 -265 Weight (lbs) 76.204 kg 76.657 kg Intake: Intake, IV Amount 1350 1300 Cefepime 1 gm In Dextrose 100 50 5% 50 ml @ 100 mls/hr IV Q8H [facility] Rx#:[id number] Dextrose 5% 1,000 ml @ 1000 1000 150 mls/hr IV .Q6H40M [facility] Rx#:[id number] Vancomycin HCl 1.25 gm In 250 250 Sodium Chloride 0.9% 250 ml @ 165 mls/hr IV Q12H [facility] Rx#:[id number] Tube Feeding 275 Other 60 Output: Urine 850 600 Other: # Bowel Movements 0 1 Stool Characteristics Liquid Active Medications: Current Medications Albuterol/Ipratropium (Duoneb Neb) 3 ml HHN Q4HR [place] Stop: 08/06/17 19:59 Last Admin: 06/09/17 06:58 Dose: 3 ml Albuterol/Ipratropium (Duoneb Neb) 3 ml HHN Q4HRT [facility] Stop: 08/07/17 18:59 Amlodipine Besylate (Norvasc) 5 mg GT Q12HR [place] Stop: 08/06/17 20:59 Last Admin: 06/08/17 21:46 Dose: 5 mg Artificial Tears (Artificial Tears Ophth Soln) 2 drop EACH EYE Q6H PRN PRN Reason: eye dryness Stop: 08/06/17 20:54 Atorvastatin Calcium (Lipitor) 10 mg GT HS [place] PRN Reason: Protocol Stop: 08/06/17 20:59 Last Admin: 06/08/17 21:32 Dose: 10 mg Bisacodyl (Dulcolax 10 Mg Supp) 10 mg RC DAILY PRN PRN Reason: Constipation Stop: 08/06/17 19:17 Budesonide (Pulmicort) 0.5 mg HHN BIDRT [facility] Stop: 08/07/17 18:59 Last Admin: 06/08/17 19:10 Dose: 0.5 mg Calcium/Vitamin D (Oscal W/Vitamin D) 1 tab GT DAILY [facility] Stop: 08/07/17 08:59 Last Admin: 06/08/17 08:44 Dose: 1 tab Chlorhexidine Gluconate (Peridex) 15 ml MM Q12HR [place] Stop: 08/06/17 20:59 Last Admin: 06/08/17 21:00 Dose: 15 ml Clonazepam (Klonopin) 2 mg GT DAILY [facility] Stop: 08/07/17 08:59 Last Admin: 06/08/17 08:44 Dose: 2 mg Docusate Sodium (Colace) 100 mg GT BID [place] Stop: 08/06/17 20:59 Last Admin: 06/08/17 17:13 Dose: 100 mg Ferrous Sulfate (Iron) 300 mg GT BID [place] Stop: 08/06/17 20:59 Last Admin: 06/08/17 17:13 Dose: 300 mg Folic Acid (Folate) 2.5 mg GT DAILY [place] Stop: 08/07/17 08:59 Last Admin: 06/08/17 08:45 Dose: 2.5 mg Hydralazine HCl (Apresoline) 50 mg GT Q8HR [place] Stop: 08/06/17 20:59 Last Admin: 06/09/17 05:38 Dose: Not Given Cefepime HCl 1 gm/ Dextrose 50 mls @ 100 mls/hr IV Q8H [place] Stop: 08/07/17 00:59 Last Infusion: 06/09/17 01:00 Dose: Infused Vancomycin HCl 1.25 gm/ Sodium (Chloride) 250 mls @ 165 mls/hr IV Q12H [place] Stop: 08/07/17 09:59 Last Infusion: 06/09/17 00:22 Dose: Infused Dextrose (D5w) 1,000 mls @ 150 mls/hr IV .Q6H40M [place] Stop: 08/07/17 09:37 Last Admin: 06/09/17 07:33 Dose: 150 mls/hr Lactobacillus Rhamnosus (Culturelle) 1 each PO DAILY [facility] Stop: 08/08/17 08:59 Lactulose (Cephulac) 30 gm GT Q8HR [place] Stop: 08/06/17 20:59 Last Admin: 06/09/17 05:38 Dose: Not Given Levetiracetam (Keppra) 1,000 mg GT Q8HR [place] Stop: 08/06/17 20:59 Last Admin: 06/09/17 05:38 Dose: Not Given Magnesium Hydroxide (Milk Of Magnesia) 30 ml GT HS PRN PRN Reason: Constipation Stop: 08/06/17 19:17 Magnesium Oxide (Mag-Oxide) 400 mg GT DAILY [place] Stop: 08/07/17 08:59 Last Admin: 06/08/17 08:44 Dose: 400 mg Metoprolol Tartrate (Lopressor) 100 mg GT Q12HR [facility] Stop: 08/06/17 20:59 Last Admin: 06/08/17 21:47 Dose: Not Given Miscellaneous (Vancomycin Iv Per Pharmacy) 1 ea PRN PRN PRN Reason: PROTOCOL Stop: 08/07/17 07:59 Miscellaneous (Probiotic Screen) 1 ea PRN PRN PRN Reason: PROTOCOL Stop: 08/07/17 10:42 Phytonadione (Mephyton) 10 mg GT DAILY [facility] Stop: 08/07/17 19:59 Last Admin: 06/08/17 20:48 Dose: Not Given Potassium Chloride (Potassium Chloride Elixir) 20 meq GT BID [facility] Stop: 08/07/17 08:59 Last Admin: 06/08/17 17:13 Dose: 20 meq Propranolol HCl (Inderal) 20 mg GT TID [facility] Stop: 08/06/17 20:59 Last Admin: 06/08/17 21:48 Dose: Not Given Pyridoxine HCl (Vitamin B6) 100 mg GT DAILY [facility] Stop: 08/07/17 08:59 Last Admin: 06/08/17 08:44 Dose: 100 mg Rifaximin (Xifaxan) 500 mg PO BID [facility] Stop: 08/07/17 16:59 Last Admin: 06/08/17 20:41 Dose: 500 mg Sodium Phosphate (Fleet Enema) 135 ml RC Q48H PRN PRN Reason: IF DULCOLAX IS INEFFECTIVE Stop: 08/06/17 19:17 Thiamine HCl (Vitamin B1) 100 mg GT DAILY [facility] Stop: 08/07/17 08:59 Last Admin: 06/08/17 08:44 Dose: 100 mg Valproate Sodium (Depakene) 500 mg GT TID [place] PRN Reason: Protocol Stop: 08/06/17 20:59 Last Admin: 06/08/17 21:39 Dose: 500 mg General: No acute distress Cardiovascular: Regular rate, Normal S1 - Procedures Procedures: Procedures Procedure Code Date RESPIRATORY VENTILATION, 24-96 CONSECUTIVE HOURS [id number] 06/07/17 Assessment/Plan - Problem List Patient Problems: All Active Problems ELEVATED NA+, AND BUN LEVELS (Acute) - Assessment Assessment: s/p respiratory failure pnumonia s/p trch and peg trmors h/o alcoholism h/o sizures - Plan Plan: iv antibiotics vent support continue current plan of care
[2017-06-09 08:21] LABS: BAND NEUTROPHILE 4 % (0-10); PLATELET COUNT 21 Th/cmm (150-400); TOTAL CELLS COUNTED 100
[2017-06-09 08:22] LABS: NEUTROPHILS 66 % (40-80); PLATELET ESTIMATE DECREASED PLATELETS (NORMAL)
--- NOTE | 2017-06-09 08:55 | Diagnostic Imaging Report ---
Exam: Portable examination of chest. One view HISTORY: Shortness of breath Findings: Portable upright examination of chest at 0805 hours reviewed no prior studies available comparison The study demonstrates cardiomegaly. Tracheostomy tube midline. There is evidence of left basilar atelectasis. Bony thorax is intact. The costophrenic angles are clear. IMPRESSION 1. Cardiomegaly 2. Basilar atelectasis follow-up dictation recommended.
[2017-06-09] MEDS: Chlorhexidine Gluconate 0.12% 480mL Bottle MM SCH ×2 (09:00→21:36)
[2017-06-09] MEDS: Docusate Sodium 100 mg/10 mL UD GT SCH ×2 (09:00→17:00)
[2017-06-09 09:13] LABS: BE(B) -0.7 mEq/L (-3.0-3.0); HCO3 24.4 mEq/L (20.0-26.0); pH 7.43 (7.35-7.45)
[2017-06-09 09:14] LABS: IRON SATURATION 41 % (15-55); TIBC (LCI) 173 ug/dL (250-450); UIBC 102 ug/dL (111-343)
[2017-06-09 09:14] LABS: ABG SOURCE Arterial; CRITICAL VALUES REPORTED BY SH; FIO2 40; MECH RATE 12; MECH VT 500
[2017-06-09 09:49] LABS: HEMATOCRIT 27.1 % (39.0-49.0); HEMOGLOBIN 9.2 gm/dL (13.2-17.3); MEAN CELL VOLUME 97.4 fl (80-99); MEAN CORPUSCULAR HEMOGLOBIN 33.1 pg (26.0-30.0); MEAN PLATELET VOLUME 10.1 fl; RED BLOOD COUNT 2.79 Mil/cmm (4.30-5.70); RED CELL DISTRIBUTION WIDTH 15.5 % (11.5-20.0); WHITE BLOOD COUNT 3.6 Th/cmm (4.8-10.8)
[2017-06-09] MEDS: Ferrous Sulfate 300 MG/5 ML UDC GT SCH ×2 (10:03→17:00)
[2017-06-09] MEDS: Lactobacillus Rhamnosus 10 Billion CFU Capsule PO SCH (10:04)
[2017-06-09] MEDS: Calcium Carb/Vit D 500 mg/200 U Tab GT SCH (10:05)
[2017-06-09 10:12] LABS: PLATELET COUNT 22 Th/cmm (150-400)
--- NOTE | 2017-06-09 10:51 | Diagnostic Imaging Report ---
Ultrasound abdomen HISTORY: Cirrhosis COMPARISON: None Technique: Sonography of the abdomen was performed in multiple planes. FINDINGS: Exam is limited due to patient body habitus and medical condition. The liver demonstrates a heterogeneous echotexture and measures 20.8 cm. The liver margins are not well-defined however no obvious focal lesions. Small amount of surrounding ascites is noted. Multiple small hypoechoic foci are seen along the gallbladder wall. Gallbladder wall measures 7 mm. Small amount of gallbladder sludge is noted. The common bile duct measures 4 mm. Assessment of the pancreas is limited due to bowel gas. The right kidney measures 12.2 cm. Left kidney measures 12.6 cm. No evidence of focal lesions or hydronephrosis. The spleen measures 16 cm. Evaluation of the abdominal aorta was limited due to bowel gas. IMPRESSION: Hepatomegaly with heterogeneous liver which may reflect underlying hepatocellular disease. Small echogenic foci along the gallbladder wall which may be due to small gallstones, however, other etiologies suggest as adenomyomatosis of the gallbladder wall should also be considered. Gallbladder wall thickening is also noted. If indicated follow-up exam such as nuclear HIDA scan may also be obtained for further assessment. Small amount of abdominal ascites. Splenomegaly.
[2017-06-09] MEDS: Potassium Chloride Elixir 20 mEq /15 mL UDC GT SCH ×2 (11:30→17:00)
--- NOTE | 2017-06-09 14:17 | General Progress Note ---
Subjective - Review of Systems Service Date: 06/09/17 Subjective: awake, on vent Objective - Results Result Diagrams: 06/09/17 09:30 06/09/17 05:07 Recent Labs: Laboratory Last Values WBC 3.6 Th/cmm (4.8-10.8) L 06/09/17 09:30 RBC 2.79 Mil/cmm (4.30-5.70) L 06/09/17 09:30 Hgb 9.2 gm/dL (13.2-17.3) L 06/09/17 09:30 Hct 27.1 % (39.0-49.0) L 06/09/17 09:30 MCV 97.4 fl (80-99) 06/09/17 09:30 MCH 33.1 pg (26.0-30.0) H 06/09/17 09:30 MCHC Differential 34.0 pg (28.0-36.0) 06/09/17 09:30 RDW 15.5 % (11.5-20.0) 06/09/17 09:30 Plt Count 22 Th/cmm (150-400) L* 06/09/17 09:30 MPV 10.1 fl 06/09/17 09:30 Band Neutrophils % 4 % (0-10) 06/09/17 05:07 Neutrophils (Manual) 66 % (40-80) 06/09/17 05:07 Lymphocytes 20 % (20-50) 06/09/17 05:07 Monocytes 10 % (2-10) 06/09/17 05:07 Eosinophils 4 % (0-5) 06/08/17 04:59 Metamyelocytes 1 % (0-0) H 06/08/17 04:59 Nucleated RBCs 1.0 % (0-0) H 06/08/17 04:59 Platelet Estimate DECREASED PLATELETS (NORMAL) 06/09/17 05:07 Platelet Morphology NORMAL (NORMAL) 06/08/17 04:59 Anisocytosis 1+ 06/08/17 04:59 RBC Morph Micro Appear ABNORMAL (NORMAL) 06/08/17 04:59 Specimen Source Arterial 06/09/17 09:00 Sample Site RB 06/09/17 09:00 pH 7.43 (7.35-7.45) 06/09/17 09:00 pCO2 35.0 mmHg (35.0-45.0) 06/09/17 09:00 pO2 95.0 mmHg (80.0-100.0) 06/09/17 09:00 HCO3 24.4 mEq/L (20.0-26.0) 06/09/17 09:00 Base Excess -0.7 mEq/L (-3.0-3.0) 06/09/17 09:00 O2 Saturation 98.0 % (92.0-100.0) 06/09/17 09:00 Jose L Test NA 06/09/17 09:00 Vent Rate 12 06/09/17 09:00 Inspired O2 40 06/09/17 09:00 Tidal Volume 500 06/09/17 09:00 PEEP 5 06/09/17 09:00 Pressure (ins/psv/peep) NA 06/09/17 09:00 Critical Value SH 06/09/17 09:00 Sodium 148 mEq/L (136-145) H 06/09/17 05:07 Potassium 3.0 mEq/L (3.5-5.1) L 06/09/17 05:07 Chloride 122 mEq/L (98-107) H 06/09/17 05:07 Carbon Dioxide 22.7 mEq/L (21.0-31.0) 06/09/17 05:07 Anion Gap 6.3 (7.0-16.0) L 06/09/17 05:07 BUN 25 mg/dL (7-25) 06/09/17 05:07 Creatinine 0.6 mg/dL (0.7-1.3) L 06/09/17 05:07 Est GFR ( Amer) > 60.0 ml/min (>90) 06/09/17 05:07 Est GFR (Non-Af Amer) > 60.0 ml/min 06/09/17 05:07 BUN/Creatinine Ratio 41.7 06/09/17 05:07 Glucose 121 mg/dL (70-105) H 06/09/17 05:07 Whole Bld Lactic Acid 1.51 mmol/L (0.60-1.99) 06/08/17 04:59 Calcium 8.6 mg/dL (8.6-10.3) 06/09/17 05:07 Phosphorus 2.7 mg/dL (2.5-5.0) 06/08/17 04:59 Magnesium 2.2 mg/dL (1.9-2.7) 06/09/17 05:07 Iron 71 ug/dL (38-169) 06/08/17 04:59 TIBC 173 ug/dL (250-450) L 06/08/17 04:59 Iron Saturation 41 % (15-55) 06/08/17 04:59 Unsaturated IBC 102 ug/dL (111-343) L 06/08/17 04:59 Total Bilirubin 0.8 mg/dL (0.3-1.0) 06/09/17 05:07 Direct Bilirubin 0.40 mg/dL (0.0-0.2) H 06/09/17 05:07 AST 34 U/L (13-39) 06/09/17 05:07 ALT 20 U/L (7-52) 06/09/17 05:07 Alkaline Phosphatase 171 U/L (34-104) H 06/09/17 05:07 Ammonia 64 umol/L (16-53) H 06/09/17 05:07 Troponin I 0.01 ng/mL (0.01-0.05) 06/07/17 13:28 B-Natriuretic Peptide 91.8 pg/mL (5.0-100.0) 06/07/17 13:28 Total Protein 6.8 gm/dL (6.0-8.3) 06/09/17 05:07 Albumin 2.3 gm/dL (4.2-5.5) L 06/09/17 05:07 Globulin 4.5 gm/dL 06/09/17 05:07 Albumin/Globulin Ratio 0.5 (1.0-1.8) L 06/09/17 05:07 Urine Source RANDOM 06/07/17 13:25 Urine Color NISA 06/07/17 13:25 Urine Clarity CLOUDY (CLEAR) 06/07/17 13:25 Urine pH 5.5 (4.6 - 8.0) 06/07/17 13:25 Ur Specific [place] 1.020 (1.005-1.030) 06/07/17 13:25 Urine Protein >=300 mg/dL (NEGATIVE) 06/07/17 13:25 Urine Glucose (UA) NEGATIVE mg/dL (NEGATIVE) 06/07/17 13:25 Urine Ketones 15 mg/dL (NEGATIVE) H 06/07/17 13:25 Urine Blood LARGE (NEGATIVE) H 06/07/17 13:25 Urine Nitrate POSITIVE (NEGATIVE) H 06/07/17 13:25 Urine Bilirubin MODERATE (NEGATIVE) H 06/07/17 13:25 Urine Urobilinogen 2.0 E.U./dL (0.2 - 1.0) 06/07/17 13:25 Ur Leukocyte Esterase MODERATE (NEGATIVE) H 06/07/17 13:25 Urine RBC >100 /hpf (0-5) H 06/07/17 13:25 Urine WBC 2-5 /hpf (0-5) H 06/07/17 13:25 Ur Epithelial Cells OCCASIONAL /lpf (FEW) 06/07/17 13:25 Urine Bacteria FEW /hpf (NONE SEEN) 06/07/17 13:25 Ur Random Sodium 119 mmol/L 06/08/17 18:16 Stool Occult Blood NEGATIVE (NEGATIVE) 06/09/17 05:13 Vancomycin Trough 14.9 ug/mL (10-20) 06/09/17 09:30 Blood Type O POSITIVE 06/09/17 09:30 Antibody Screen NEGATIVE 06/09/17 09:30 - Physical Exam Vitals and I&O: Vital Signs Temp 97.4 F 06/09/17 12:00 Pulse 61 06/09/17 13:18 Resp 17 06/09/17 12:00 BP 124/58 06/09/17 12:56 Pulse Ox 97 06/09/17 13:18 Intake & Output 06/08/17 06/09/17 06/09/17 18:59 06:59 18:59 Intake Total 1350 1300 635 Output Total 850 600 Balance 500 1300 35 Weight (lbs) 76.204 kg 76.657 kg Intake: Intake, IV Amount 1350 1300 300 Cefepime 1 gm In Dextrose 100 50 50 5% 50 ml @ 100 mls/hr IV Q8H [facility] Rx#:[id number] Dextrose 5% 1,000 ml @ 1000 1000 150 mls/hr IV .Q6H40M [facility] Rx#:[id number] Vancomycin HCl 1.25 gm In 250 250 250 Sodium Chloride 0.9% 250 ml @ 165 mls/hr IV Q12H [facility] Rx#:[id number] Tube Feeding 275 Other 60 Output: Urine 850 600 Other: # Bowel Movements 0 1 Stool Characteristics Liquid Liquid Active Medications: Current Medications Albuterol/Ipratropium (Duoneb Neb) 3 ml HHN Q4HR [facility] Stop: 08/06/17 19:59 Last Admin: 06/09/17 11:08 Dose: 3 ml Albuterol/Ipratropium (Duoneb Neb) 3 ml HHN Q4HRT [facility] Stop: 08/07/17 18:59 Amlodipine Besylate (Norvasc) 5 mg GT Q12HR [facility] Stop: 08/06/17 20:59 Last Admin: 06/09/17 10:05 Dose: 5 mg Artificial Tears (Artificial Tears Ophth Soln) 2 drop EACH EYE Q6H PRN PRN Reason: eye dryness Stop: 08/06/17 20:54 Atorvastatin Calcium (Lipitor) 10 mg GT HS [place] PRN Reason: Protocol Stop: 08/06/17 20:59 Last Admin: 06/08/17 21:32 Dose: 10 mg Bisacodyl (Dulcolax 10 Mg Supp) 10 mg RC DAILY PRN PRN Reason: Constipation Stop: 08/06/17 19:17 Budesonide (Pulmicort) 0.5 mg HHN BIDRT [place] Stop: 08/07/17 18:59 Last Admin: 06/08/17 19:10 Dose: 0.5 mg Calcium/Vitamin D (Oscal W/Vitamin D) 1 tab GT DAILY [facility] Stop: 08/07/17 08:59 Last Admin: 06/09/17 10:05 Dose: 1 tab Chlorhexidine Gluconate (Peridex) 15 ml MM Q12HR [facility] Stop: 08/06/17 20:59 Last Admin: 06/09/17 09:00 Dose: 15 ml Clonazepam (Klonopin) 2 mg GT DAILY [facility] Stop: 08/07/17 08:59 Last Admin: 06/09/17 10:05 Dose: 2 mg Docusate Sodium (Colace) 100 mg GT BID [facility] Stop: 08/06/17 20:59 Last Admin: 06/09/17 09:00 Dose: Not Given Ferrous Sulfate (Iron) 300 mg GT BID [facility] Stop: 08/06/17 20:59 Last Admin: 06/09/17 10:03 Dose: 300 mg Folic Acid (Folate) 2.5 mg GT DAILY [facility] Stop: 08/07/17 08:59 Last Admin: 06/09/17 10:05 Dose: 2.5 mg Hydralazine HCl (Apresoline) 50 mg GT Q8HR [facility] Stop: 08/06/17 20:59 Last Admin: 06/09/17 12:56 Dose: 50 mg Cefepime HCl 1 gm/ Dextrose 50 mls @ 100 mls/hr IV Q8H [facility] Stop: 08/07/17 00:59 Last Infusion: 06/09/17 09:30 Dose: Infused Vancomycin HCl 1.25 gm/ Sodium (Chloride) 250 mls @ 165 mls/hr IV Q12H [facility] Stop: 08/07/17 09:59 Last Infusion: 06/09/17 11:31 Dose: Infused Dextrose (D5w) 1,000 mls @ 150 mls/hr IV .Q6H40M [facility] Stop: 08/07/17 09:37 Last Admin: 06/09/17 07:33 Dose: 150 mls/hr Lactobacillus Rhamnosus (Culturelle) 1 each PO DAILY [facility] Stop: 08/08/17 08:59 Last Admin: 06/09/17 10:04 Dose: 1 each Lactulose (Cephulac) 30 gm GT Q8HR [place] Stop: 08/06/17 20:59 Last Admin: 06/09/17 12:56 Dose: Not Given Levetiracetam (Keppra) 1,000 mg GT Q8HR [facility] Stop: 08/06/17 20:59 Last Admin: 06/09/17 12:56 Dose: 1,000 mg Magnesium Hydroxide (Milk Of Magnesia) 30 ml GT HS PRN PRN Reason: Constipation Stop: 08/06/17 19:17 Magnesium Oxide (Mag-Oxide) 400 mg GT DAILY [place] Stop: 08/07/17 08:59 Last Admin: 06/09/17 10:04 Dose: 400 mg Metoprolol Tartrate (Lopressor) 100 mg GT Q12HR [facility] Stop: 08/06/17 20:59 Last Admin: 06/09/17 10:04 Dose: 100 mg Miscellaneous (Vancomycin Iv Per Pharmacy) 1 ea PRN PRN PRN Reason: PROTOCOL Stop: 08/07/17 07:59 Miscellaneous (Probiotic Screen) 1 ea PRN PRN PRN Reason: PROTOCOL Stop: 08/07/17 10:42 Phytonadione (Mephyton) 10 mg GT DAILY [facility] Stop: 08/07/17 19:59 Last Admin: 06/09/17 10:06 Dose: 10 mg Potassium Chloride (Potassium Chloride Elixir) 20 meq GT BID [facility] Stop: 08/07/17 08:59 Last Admin: 06/09/17 11:30 Dose: 20 meq Propranolol HCl (Inderal) 20 mg GT TID [place] Stop: 08/06/17 20:59 Last Admin: 06/09/17 10:03 Dose: 20 mg Pyridoxine HCl (Vitamin B6) 100 mg GT DAILY [facility] Stop: 08/07/17 08:59 Last Admin: 06/09/17 10:05 Dose: 100 mg Rifaximin (Xifaxan) 500 mg PO BID [facility] Stop: 08/07/17 16:59 Last Admin: 06/09/17 10:06 Dose: 500 mg Sodium Phosphate (Fleet Enema) 135 ml RC Q48H PRN PRN Reason: IF DULCOLAX IS INEFFECTIVE Stop: 08/06/17 19:17 Thiamine HCl (Vitamin B1) 100 mg GT DAILY [facility] Stop: 08/07/17 08:59 Last Admin: 06/09/17 10:05 Dose: 100 mg Valproate Sodium (Depakene) 500 mg GT TID [place] PRN Reason: Protocol Stop: 08/06/17 20:59 Last Admin: 06/09/17 10:03 Dose: 500 mg General: Alert, No acute distress HEENT: Atraumatic, PERRLA, EOMI, Mucous membr. moist/pink Neck: Supple, +2 carotid pulse wo bruit Cardiovascular: Regular rate, Normal S1, Normal S2 Lungs: Clear to auscultation Abdomen: Bowel sounds, Soft Extremities: no Edema Neurological: Sensation intact Skin: no Rash - Procedures Procedures: Procedures Procedure Code Date RESPIRATORY VENTILATION, 24-96 CONSECUTIVE HOURS [id number] 06/07/17 Assessment/Plan - Problem List Patient Problems: All Active Problems ELEVATED NA+, AND BUN LEVELS (Acute) - Assessment Assessment: Hypernatremia RFVD Sepsis etio? CLD Thrombocytopenia Anemia of CD - Plan Plan: Lab - Result Diagrams 06/09/17 09:30 06/09/17 05:07 Current Medications Albuterol/Ipratropium (Duoneb Neb) 3 ml HHN Q4HR [facility] Stop: 08/06/17 19:59 Last Admin: 06/09/17 11:08 Dose: 3 ml Albuterol/Ipratropium (Duoneb Neb) 3 ml HHN Q4HRT [facility] Stop: 08/07/17 18:59 Amlodipine Besylate (Norvasc) 5 mg GT Q12HR [facility] Stop: 08/06/17 20:59 Last Admin: 06/09/17 10:05 Dose: 5 mg Artificial Tears (Artificial Tears Ophth Soln) 2 drop EACH EYE Q6H PRN PRN Reason: eye dryness Stop: 08/06/17 20:54 Atorvastatin Calcium (Lipitor) 10 mg GT HS [facility] PRN Reason: Protocol Stop: 08/06/17 20:59 Last Admin: 06/08/17 21:32 Dose: 10 mg Bisacodyl (Dulcolax 10 Mg Supp) 10 mg RC DAILY PRN PRN Reason: Constipation Stop: 08/06/17 19:17 Budesonide (Pulmicort) 0.5 mg HHN BIDRT [facility] Stop: 08/07/17 18:59 Last Admin: 06/08/17 19:10 Dose: 0.5 mg Calcium/Vitamin D (Oscal W/Vitamin D) 1 tab GT DAILY [facility] Stop: 08/07/17 08:59 Last Admin: 06/09/17 10:05 Dose: 1 tab Chlorhexidine Gluconate (Peridex) 15 ml MM Q12HR [facility] Stop: 08/06/17 20:59 Last Admin: 06/09/17 09:00 Dose: 15 ml Clonazepam (Klonopin) 2 mg GT DAILY [facility] Stop: 08/07/17 08:59 Last Admin: 06/09/17 10:05 Dose: 2 mg Docusate Sodium (Colace) 100 mg GT BID [facility] Stop: 08/06/17 20:59 Last Admin: 06/09/17 09:00 Dose: Not Given Ferrous Sulfate (Iron) 300 mg GT BID [facility] Stop: 08/06/17 20:59 Last Admin: 06/09/17 10:03 Dose: 300 mg Folic Acid (Folate) 2.5 mg GT DAILY [facility] Stop: 08/07/17 08:59 Last Admin: 06/09/17 10:05 Dose: 2.5 mg Hydralazine HCl (Apresoline) 50 mg GT Q8HR [facility] Stop: 08/06/17 20:59 Last Admin: 06/09/17 12:56 Dose: 50 mg Cefepime HCl 1 gm/ Dextrose 50 mls @ 100 mls/hr IV Q8H [facility] Stop: 08/07/17 00:59 Last Infusion: 06/09/17 09:30 Dose: Infused Vancomycin HCl 1.25 gm/ Sodium (Chloride) 250 mls @ 165 mls/hr IV Q12H [facility] Stop: 08/07/17 09:59 Last Infusion: 06/09/17 11:31 Dose: Infused Dextrose (D5w) 1,000 mls @ 150 mls/hr IV .Q6H40M [facility] Stop: 08/07/17 09:37 Last Admin: 06/09/17 07:33 Dose: 150 mls/hr Lactobacillus Rhamnosus (Culturelle) 1 each PO DAILY [facility] Stop: 08/08/17 08:59 Last Admin: 06/09/17 10:04 Dose: 1 each Lactulose (Cephulac) 30 gm GT Q8HR [facility] Stop: 08/06/17 20:59 Last Admin: 06/09/17 12:56 Dose: Not Given Levetiracetam (Keppra) 1,000 mg GT Q8HR [facility] Stop: 08/06/17 20:59 Last Admin: 06/09/17 12:56 Dose: 1,000 mg Magnesium Hydroxide (Milk Of Magnesia) 30 ml GT HS PRN PRN Reason: Constipation Stop: 08/06/17 19:17 Magnesium Oxide (Mag-Oxide) 400 mg GT DAILY [facility] Stop: 08/07/17 08:59 Last Admin: 06/09/17 10:04 Dose: 400 mg Metoprolol Tartrate (Lopressor) 100 mg GT Q12HR [facility] Stop: 08/06/17 20:59 Last Admin: 06/09/17 10:04 Dose: 100 mg Miscellaneous (Vancomycin Iv Per Pharmacy) 1 ea PRN PRN PRN Reason: PROTOCOL Stop: 08/07/17 07:59 Miscellaneous (Probiotic Screen) 1 ea PRN PRN PRN Reason: PROTOCOL Stop: 08/07/17 10:42 Phytonadione (Mephyton) 10 mg GT DAILY [facility] Stop: 08/07/17 19:59 Last Admin: 06/09/17 10:06 Dose: 10 mg Potassium Chloride (Potassium Chloride Elixir) 20 meq GT BID [facility] Stop: 08/07/17 08:59 Last Admin: 06/09/17 11:30 Dose: 20 meq Propranolol HCl (Inderal) 20 mg GT TID [facility] Stop: 08/06/17 20:59 Last Admin: 06/09/17 10:03 Dose: 20 mg Pyridoxine HCl (Vitamin B6) 100 mg GT DAILY [facility] Stop: 08/07/17 08:59 Last Admin: 06/09/17 10:05 Dose: 100 mg Rifaximin (Xifaxan) 500 mg PO BID [facility] Stop: 08/07/17 16:59 Last Admin: 06/09/17 10:06 Dose: 500 mg Sodium Phosphate (Fleet Enema) 135 ml RC Q48H PRN PRN Reason: IF DULCOLAX IS INEFFECTIVE Stop: 08/06/17 19:17 Thiamine HCl (Vitamin B1) 100 mg GT DAILY [facility] Stop: 08/07/17 08:59 Last Admin: 06/09/17 10:05 Dose: 100 mg Valproate Sodium (Depakene) 500 mg GT TID [place] PRN Reason: Protocol Stop: 08/06/17 20:59 Last Admin: 06/09/17 10:03 Dose: 500 mg CXR: CM, B/L ATx replace K continue D5W but decrease rate F/U electrolytes Nutritional Asmnt/Malnutr-PDOC - Dietary Evaluation Malnutrition Findings (Please click <Entered> for more info): Nutritional Asmnt/Malnutrition Start: 06/09/17 11: 00 Text: Status: Complete Freq: Document 06/09/17 13:09 [facility] (Rec: 06/09/17 13:27 [facility] [id number]) Nutritional Asmnt/Malnutrition Patient General Information Nutritional Screening High Risk Screening Diagnosis Sepsis, UTI, right and left lower lobe infiltrate, pneumonia Pertinent Medical Hx/Surgical Hx Alcohol problem, liver disease , cirrhosis of the liver, hepatic comas, seizures, trachestomy, PEG, asthma, COPD Subjective Information Pt is a 52-year-old male from [facility] admitted with chief complaint of shortness of breath and falling oxygen saturation. Pt has tracheostomy to ventilator. Pt was unable to provide nutritional hx. Pt appears well nourished with no signs of muscle or fat depletion. Order to resume tube feeding; bag of Novosource Renal at bedside not yet started. Abdomen Ultrasound 06/09 notes some abdominal ascites. Current Diet Order/ Nutrition Support Novosource Renal at 55 ml/hr = 2640kcals, 120gm protein, 946ml free water Patient / S.O Can't verbalize diet edu Pertinent Medications Oscal with Vitamin D, Cefepime , D5w, Iron, Folate, Culturelle, MagOxide, Mephyton , KCl Elixir, Vitamin B6, Vitamin B1, Depakene, Vancomycin Pertinent Labs (06/09) Na 148H (improving), K 3L, Alkaline Phosphatase 171H, Ammonia 64H, Albumin 3.3L Nutritional Hx/Data Height 1.68 m Height (Calculated Centimeters) 167.6 Current Weight (lbs) 76.657 kg Weight (Calculated Kilograms) 76.7 Weight (Calculated Grams) 96206.1 Usual body Weight (lbs) 168 % Usual Body Weight 100 [place] Body Weight 142 % [place] Body Weight 119 Recent Weight Change No Weight Status Overweight GI Symptoms GI Symptoms Diarrhea Difficult in: Chewing Swallowing Food Allergies No Usual diet at home Nepro 1.8 (237 ml) QID 0900, 1300, 1700, 2100, sugar free ProStat 30 ml Skin Integrity/Comment: Vitor 12. Skin intact. Estimated Nutritional Goals BEE in Kcals: Using Current wt Calories/Kcals/Kg Based on current wt 76.8 kg with consideration of sepsis: Kcals Calculated 6733-0355 kcals/day (27-32 kcals/kg) to prevent wt gain with overwt status Protein: Using Current wt Protein g/kg: Based on current wt 76.8 kg with consideration of sepsis: Protein Calculated 92-115 gm/day (1.2-1.5 gm/kg) Fluid: ml Per MD/DO due to abnormal electrolytes Nutritional Problem 1. Problem Problem Excessive intake from enteral nutrition related to Etiology increased energy intake from calorically dense tube feeding formula as evidenced by Signs/Symptoms: current tube feeding meets 104 % of higher end of estimated calories needs. Malnutrition Alert Protein-Calorie Malnutrition N/A Is there a minimum of two criteria No selected? Query Text:Check all the applicable criteria. A minimum of two criteria are recommended for diagnosis of either severe or non-severe malnutrition. Malnutrition Related to Morbid Obesity Malnutrition related to morbid obesity No Intervention/Recommendation Recommendations by RD Decrease Calorie Intake Comments 1. Recommend decrease tube feeding Novosource Renal at goal rate of 50 ml/hr to provide 2400 kcals, 109 gm protein, and 860 ml free water per day. Monitor renal labs to prioritize protein needs. Expected Outcomes/Goals Expected Outcomes/Goals Provide pt with 100% of estimated nutritional needs. Physician Parameters for PEM Serum Albumin (g/dl) 3.1 - 3.4 (Mild)
[2017-06-09] MEDS: Budesonide 0.5 Mg/2 mL Ud HHN SCH (18:40)
[2017-06-09] MEDS: Atorvastatin Calcium 10 MG TAB GT SCH (21:31)
[2017-06-10] MEDS: Lactulose 10 Gm/15 mL 30mL UDC GT SCH ×4 (01:03→17:25)
--- NOTE | 2017-06-10 01:06 | Progress Notes ---
DATE: 06/09/2017 PROBLEM LIST: 1. Probably pneumonia. 2. Underlying encephalopathy and alcoholic liver disease. 3. Chronic vent, acute failure. SYMPTOMS: Nil. The patient is awake, no meaningful communication could be done, looking from side to side. PHYSICAL EXAMINATION: VITAL SIGNS: Temperature is 97.4, blood pressure 124/58, saturation 96 on 40%. NECK: Veins not visualized. Good bilateral carotid upstroke. CHEST: Shows diminished air entry with occasional rhonchi. HEART: Regular. ABDOMEN: Soft, nontender. LABORATORY DATA: The patient's ABG looks okay. Chest x-ray shows developing effusion, bilaterally. The patient's platelet is 21,000. Electrolytes show sodium 148. The patient's ammonia is 171. ASSESSMENT: The patient has developing effusion on the basal questionable infiltrate, currently on continuous positive airway pressure and vancomycin. PLANS AND SUGGESTIONS: Ease off fluid, continue other medications. We will await for cultures to come back. In the meantime, continue current antibiotic and go from there. JOB# [id number]
[2017-06-10] MEDS: Albuterol/Ipratropium Neb 3 ML AERS HHN SCH ×6 (02:28→23:16)
[2017-06-10] MEDS: Levetiracetam 500 mg/5mL 5mL UDC GT SCH ×3 (04:27→21:10)
[2017-06-10 05:12] LABS: FOLIC ACID >20.0 ng/mL (>3.0)
[2017-06-10 05:19] LABS: % BASOPHILS 0.3 % (0.0-2.0); % EOSINOPHILS 4.2 % (0.0-5.0); % LYMPHOCYTES 18.4 % (20.0-50.0); % MONOCYTES 12.3 % (2.0-10.0); % NEUTROPHILS 64.8 % (40.0-80.0); HEMATOCRIT 25.7 % (39.0-49.0); HEMOGLOBIN 8.9 gm/dL (13.2-17.3); MEAN CELL VOLUME 95.2 fl (80-99); MEAN CORPUSCULAR HEMOGLOBIN 32.9 pg (26.0-30.0); MEAN CORPUSCULAR HGB CONC 34.5 pg (28.0-36.0); MEAN PLATELET VOLUME 10.1 fl; NEUTROPHILE ABSOLUTE 2.8 Th/cmm (1.8-8.0); RED BLOOD COUNT 2.69 Mil/cmm (4.30-5.70); RED CELL DISTRIBUTION WIDTH 15.5 % (11.5-20.0); WHITE BLOOD COUNT 4.3 Th/cmm (4.8-10.8)
[2017-06-10 05:28] LABS: ANION GAP 5.6 (7.0-16.0); BUN - UREA NITROGEN 14 mg/dL (7-25); CALCIUM SERUM 8.5 mg/dL (8.6-10.3); CARBON DIOXIDE 22.8 mEq/L (21.0-31.0); CHLORIDE 116 mEq/L (98-107); CREATININE - SERUM 0.5 mg/dL (0.7-1.3); GLUCOSE 105 mg/dL (70-105); POTASSIUM SERUM 3.4 mEq/L (3.5-5.1); SODIUM SERUM 141 mEq/L (136-145)
[2017-06-10 05:29] LABS: PLATELET COUNT 51 Th/cmm (150-400)
[2017-06-10] MEDS: Budesonide 0.5 Mg/2 mL Ud HHN SCH ×2 (07:01→19:11)
--- NOTE | 2017-06-10 08:26 | Diagnostic Imaging Report ---
CHEST X-RAY: AP view INDICATION: Pneumonia, effusion COMPARISON: 06/09/2017 FINDINGS: Tracheostomy tube is noted. Congestive changes are seen with small right effusion. Low lung volumes are noted. Cardiomegaly is noted. IMPRESSION: Congestive changes small right effusion. Pneumonia of the right lung base cannot be excluded. Cardiomegaly.
--- NOTE | 2017-06-10 08:39 | General Progress Note ---
Subjective - Review of Systems Subjective: on vent, afebrile nad Objective - Results Result Diagrams: 06/10/17 04:40 06/10/17 04:40 Recent Labs: Laboratory Last Values WBC 4.3 Th/cmm (4.8-10.8) L 06/10/17 04:40 RBC 2.69 Mil/cmm (4.30-5.70) L 06/10/17 04:40 Hgb 8.9 gm/dL (13.2-17.3) L 06/10/17 04:40 Hct 25.7 % (39.0-49.0) L 06/10/17 04:40 MCV 95.2 fl (80-99) 06/10/17 04:40 MCH 32.9 pg (26.0-30.0) H 06/10/17 04:40 MCHC Differential 34.5 pg (28.0-36.0) 06/10/17 04:40 RDW 15.5 % (11.5-20.0) 06/10/17 04:40 Plt Count 51 Th/cmm (150-400) L D 06/10/17 04:40 MPV 10.1 fl 06/10/17 04:40 Neutrophils % 64.8 % (40.0-80.0) 06/10/17 04:40 Band Neutrophils % 4 % (0-10) 06/09/17 05:07 Lymphocytes % 18.4 % (20.0-50.0) L 06/10/17 04:40 Monocytes % 12.3 % (2.0-10.0) H 06/10/17 04:40 Eosinophils % 4.2 % (0.0-5.0) 06/10/17 04:40 Basophils % 0.3 % (0.0-2.0) 06/10/17 04:40 Neutrophils (Manual) 66 % (40-80) 06/09/17 05:07 Lymphocytes 20 % (20-50) 06/09/17 05:07 Monocytes 10 % (2-10) 06/09/17 05:07 Eosinophils 4 % (0-5) 06/08/17 04:59 Metamyelocytes 1 % (0-0) H 06/08/17 04:59 Nucleated RBCs 1.0 % (0-0) H 06/08/17 04:59 Platelet Estimate DECREASED PLATELETS (NORMAL) 06/09/17 05:07 Platelet Morphology NORMAL (NORMAL) 06/08/17 04:59 Anisocytosis 1+ 06/08/17 04:59 RBC Morph Micro Appear ABNORMAL (NORMAL) 06/08/17 04:59 Specimen Source Arterial 06/09/17 09:00 Sample Site RB 06/09/17 09:00 pH 7.43 (7.35-7.45) 06/09/17 09:00 pCO2 35.0 mmHg (35.0-45.0) 06/09/17 09:00 pO2 95.0 mmHg (80.0-100.0) 06/09/17 09:00 HCO3 24.4 mEq/L (20.0-26.0) 06/09/17 09:00 Base Excess -0.7 mEq/L (-3.0-3.0) 06/09/17 09:00 O2 Saturation 98.0 % (92.0-100.0) 06/09/17 09:00 Jose L Test NA 06/09/17 09:00 Vent Rate 12 06/09/17 09:00 Inspired O2 40 06/09/17 09:00 Tidal Volume 500 06/09/17 09:00 PEEP 5 06/09/17 09:00 Pressure (ins/psv/peep) NA 06/09/17 09:00 Critical Value SH 06/09/17 09:00 Sodium 141 mEq/L (136-145) 06/10/17 04:40 Potassium 3.4 mEq/L (3.5-5.1) L 06/10/17 04:40 Chloride 116 mEq/L (98-107) H 06/10/17 04:40 Carbon Dioxide 22.8 mEq/L (21.0-31.0) 06/10/17 04:40 Anion Gap 5.6 (7.0-16.0) L 06/10/17 04:40 BUN 14 mg/dL (7-25) 06/10/17 04:40 Creatinine 0.5 mg/dL (0.7-1.3) L 06/10/17 04:40 Est GFR ( Amer) > 60.0 ml/min (>90) 06/10/17 04:40 Est GFR (Non-Af Amer) > 60.0 ml/min 06/10/17 04:40 BUN/Creatinine Ratio 28.0 06/10/17 04:40 Glucose 105 mg/dL (70-105) 06/10/17 04:40 Whole Bld Lactic Acid 1.51 mmol/L (0.60-1.99) 06/08/17 04:59 Calcium 8.5 mg/dL (8.6-10.3) L 06/10/17 04:40 Phosphorus 2.7 mg/dL (2.5-5.0) 06/08/17 04:59 Magnesium 2.2 mg/dL (1.9-2.7) 06/09/17 05:07 Iron 71 ug/dL (38-169) 06/08/17 04:59 TIBC 173 ug/dL (250-450) L 06/08/17 04:59 Iron Saturation 41 % (15-55) 06/08/17 04:59 Unsaturated IBC 102 ug/dL (111-343) L 06/08/17 04:59 Ferritin 303 ng/mL (30-400) 06/08/17 04:59 Total Bilirubin 0.8 mg/dL (0.3-1.0) 06/09/17 05:07 Direct Bilirubin 0.40 mg/dL (0.0-0.2) H 06/09/17 05:07 AST 34 U/L (13-39) 06/09/17 05:07 ALT 20 U/L (7-52) 06/09/17 05:07 Alkaline Phosphatase 171 U/L (34-104) H 06/09/17 05:07 Ammonia 116 umol/L (16-53) H 06/10/17 04:40 Troponin I 0.01 ng/mL (0.01-0.05) 06/07/17 13:28 B-Natriuretic Peptide 91.8 pg/mL (5.0-100.0) 06/07/17 13:28 Total Protein 6.8 gm/dL (6.0-8.3) 06/09/17 05:07 Albumin 2.3 gm/dL (4.2-5.5) L 06/09/17 05:07 Globulin 4.5 gm/dL 06/09/17 05:07 Albumin/Globulin Ratio 0.5 (1.0-1.8) L 06/09/17 05:07 Vitamin B12 >1999 pg/mL (211-946) H 06/08/17 04:59 Folic Acid >20.0 ng/mL (>3.0) 06/08/17 04:59 Urine Source RANDOM 06/07/17 13:25 Urine Color NISA 06/07/17 13:25 Urine Clarity CLOUDY (CLEAR) 06/07/17 13:25 Urine pH 5.5 (4.6 - 8.0) 06/07/17 13:25 Ur Specific [place] 1.020 (1.005-1.030) 06/07/17 13:25 Urine Protein >=300 mg/dL (NEGATIVE) 06/07/17 13:25 Urine Glucose (UA) NEGATIVE mg/dL (NEGATIVE) 06/07/17 13:25 Urine Ketones 15 mg/dL (NEGATIVE) H 06/07/17 13:25 Urine Blood LARGE (NEGATIVE) H 06/07/17 13:25 Urine Nitrate POSITIVE (NEGATIVE) H 06/07/17 13:25 Urine Bilirubin MODERATE (NEGATIVE) H 06/07/17 13:25 Urine Urobilinogen 2.0 E.U./dL (0.2 - 1.0) 06/07/17 13:25 Ur Leukocyte Esterase MODERATE (NEGATIVE) H 06/07/17 13:25 Urine RBC >100 /hpf (0-5) H 06/07/17 13:25 Urine WBC 2-5 /hpf (0-5) H 06/07/17 13:25 Ur Epithelial Cells OCCASIONAL /lpf (FEW) 06/07/17 13:25 Urine Bacteria FEW /hpf (NONE SEEN) 06/07/17 13:25 Ur Random Sodium 119 mmol/L 06/08/17 18:16 Stool Occult Blood NEGATIVE (NEGATIVE) 06/09/17 05:13 Vancomycin Trough 14.9 ug/mL (10-20) 06/09/17 09:30 Blood Type O POSITIVE 06/09/17 09:30 Antibody Screen NEGATIVE 06/09/17 09:30 - Physical Exam Vitals and I&O: Vital Signs Temp 99.3 F 06/10/17 04:00 Pulse 73 06/10/17 07:02 Resp 26 06/10/17 06:00 BP 94/53 06/10/17 06:00 Pulse Ox 98 06/10/17 07:02 Intake & Output 06/09/17 06/10/17 06/10/17 18:59 06:59 18:59 Intake Total 1440 55 910 Output Total 2050 1450 Balance -610 55 -540 Weight (lbs) 76.657 kg 79.832 kg 81.828 kg Intake: Intake, IV Amount 350 55 50 Cefepime 1 gm In Dextrose 100 50 5% 50 ml @ 100 mls/hr IV Q8H [facility] Rx#:[id number] Vancomycin HCl 1.25 gm In 250 55 Sodium Chloride 0.9% 250 ml @ 165 mls/hr IV Q12H [facility] Rx#:[id number] Tube Feeding 580 660 Blood Product 350 Other 160 200 Output: Urine 2050 1450 Other: # Bowel Movements 3 Stool Characteristics Liquid Liquid Active Medications: Current Medications Albuterol/Ipratropium (Duoneb Neb) 3 ml HHN Q4HR [place] Stop: 08/06/17 19:59 Last Admin: 06/09/17 20:05 Dose: Not Given Albuterol/Ipratropium (Duoneb Neb) 3 ml HHN Q4HRT [facility] Stop: 08/07/17 18:59 Last Admin: 06/10/17 07:01 Dose: 3 ml Amlodipine Besylate (Norvasc) 5 mg GT Q12HR [place] Stop: 08/06/17 20:59 Last Admin: 06/09/17 21:32 Dose: 5 mg Artificial Tears (Artificial Tears Ophth Soln) 2 drop EACH EYE Q6H PRN PRN Reason: eye dryness Stop: 08/06/17 20:54 Atorvastatin Calcium (Lipitor) 10 mg GT HS [place] PRN Reason: Protocol Stop: 08/06/17 20:59 Last Admin: 06/09/17 21:31 Dose: 10 mg Bisacodyl (Dulcolax 10 Mg Supp) 10 mg RC DAILY PRN PRN Reason: Constipation Stop: 08/06/17 19:17 Budesonide (Pulmicort) 0.5 mg HHN BIDRT [facility] Stop: 08/07/17 18:59 Last Admin: 06/10/17 07:01 Dose: 0.5 mg Calcium/Vitamin D (Oscal W/Vitamin D) 1 tab GT DAILY [facility] Stop: 08/07/17 08:59 Last Admin: 06/09/17 10:05 Dose: 1 tab Chlorhexidine Gluconate (Peridex) 15 ml MM Q12HR [place] Stop: 08/06/17 20:59 Last Admin: 06/09/17 21:36 Dose: 15 ml Chlorhexidine Gluconate (Peridex) 15 ml MM 08,1999 [place] Stop: 08/08/17 19:59 Clonazepam (Klonopin) 2 mg GT DAILY [place] Stop: 08/07/17 08:59 Last Admin: 06/09/17 10:05 Dose: 2 mg Docusate Sodium (Colace) 100 mg GT BID [place] Stop: 08/06/17 20:59 Last Admin: 06/09/17 17:00 Dose: Not Given Ferrous Sulfate (Iron) 300 mg GT BID [place] Stop: 08/06/17 20:59 Last Admin: 06/09/17 17:00 Dose: 300 mg Folic Acid (Folate) 2.5 mg GT DAILY [place] Stop: 08/07/17 08:59 Last Admin: 06/09/17 10:05 Dose: 2.5 mg Hydralazine HCl (Apresoline) 50 mg GT Q8HR [place] Stop: 08/06/17 20:59 Last Admin: 06/10/17 04:26 Dose: 50 mg Cefepime HCl 1 gm/ Dextrose 50 mls @ 100 mls/hr IV Q8H [place] Stop: 08/07/17 00:59 Last Infusion: 06/10/17 07:10 Dose: Infused Vancomycin HCl 1.25 gm/ Sodium (Chloride) 250 mls @ 165 mls/hr IV Q12H [place] Stop: 08/07/17 09:59 Last Infusion: 06/09/17 23:00 Dose: 0 mls/hr Dextrose (D5w) 1,000 mls @ 100 mls/hr IV .Q10H [place] Stop: 08/07/17 09:37 Last Admin: 06/09/17 21:08 Dose: 100 mls/hr Lactobacillus Rhamnosus (Culturelle) 1 each PO DAILY [place] Stop: 08/08/17 08:59 Last Admin: 06/09/17 10:04 Dose: 1 each Lactulose (Cephulac) 30 gm GT Q6HR [place] Stop: 08/08/17 17:59 Last Admin: 06/10/17 05:26 Dose: 30 gm Levetiracetam (Keppra) 1,000 mg GT Q8HR [facility] Stop: 08/06/17 20:59 Last Admin: 06/10/17 04:27 Dose: 1,000 mg Magnesium Hydroxide (Milk Of Magnesia) 30 ml GT HS PRN PRN Reason: Constipation Stop: 08/06/17 19:17 Magnesium Oxide (Mag-Oxide) 400 mg GT DAILY [place] Stop: 08/07/17 08:59 Last Admin: 06/09/17 10:04 Dose: 400 mg Metoprolol Tartrate (Lopressor) 100 mg GT Q12HR [place] Stop: 08/06/17 20:59 Last Admin: 06/09/17 21:29 Dose: 100 mg Miscellaneous (Vancomycin Iv Per Pharmacy) 1 ea PRN PRN PRN Reason: PROTOCOL Stop: 08/07/17 07:59 Miscellaneous (Probiotic Screen) 1 ea PRN PRN PRN Reason: PROTOCOL Stop: 08/07/17 10:42 Phytonadione (Mephyton) 10 mg GT DAILY [facility] Stop: 08/07/17 19:59 Last Admin: 06/09/17 10:06 Dose: 10 mg Potassium Chloride (Potassium Chloride Elixir) 20 meq GT BID [facility] Stop: 08/07/17 08:59 Last Admin: 06/09/17 17:00 Dose: 20 meq Propranolol HCl (Inderal) 20 mg GT TID [facility] Stop: 08/06/17 20:59 Last Admin: 06/09/17 21:30 Dose: 20 mg Pyridoxine HCl (Vitamin B6) 100 mg GT DAILY [facility] Stop: 08/07/17 08:59 Last Admin: 06/09/17 10:05 Dose: 100 mg Rifaximin (Xifaxan) 500 mg PO BID [facility] Stop: 08/07/17 16:59 Last Admin: 06/09/17 17:23 Dose: 500 mg Sodium Phosphate (Fleet Enema) 135 ml RC Q48H PRN PRN Reason: IF DULCOLAX IS INEFFECTIVE Stop: 08/06/17 19:17 Thiamine HCl (Vitamin B1) 100 mg GT DAILY [facility] Stop: 08/07/17 08:59 Last Admin: 06/09/17 10:05 Dose: 100 mg Valproate Sodium (Depakene) 500 mg GT TID [place] PRN Reason: Protocol Stop: 08/06/17 20:59 Last Admin: 08/14/17 21:28 Dose: 500 mg General: Alert, No acute distress HEENT: Atraumatic, PERRLA, EOMI, Mucous membr. moist/pink Neck: Supple, +2 carotid pulse wo bruit Cardiovascular: Regular rate, Normal S1, Normal S2 Lungs: Clear to auscultation Abdomen: Bowel sounds, Soft Extremities: no Edema Neurological: Sensation intact Skin: no Rash - Procedures Procedures: Procedures Procedure Code Date RESPIRATORY VENTILATION, 24-96 CONSECUTIVE HOURS [id number] 06/07/17 Assessment/Plan - Problem List Patient Problems: All Active Problems ELEVATED NA+, AND BUN LEVELS (Acute) - Assessment Assessment: s/p respiratory failure pnumonia s/p trch and peg trmors h/o alcoholism h/o sizures - Plan Plan: iv antibiotics vent support continue current plan of care Nutritional Asmnt/Malnutr-PDOC - Dietary Evaluation Malnutrition Findings (Please click <Entered> for more info): Nutritional Asmnt/Malnutrition Start: 06/09/17 11: 00 Text: Status: Complete Freq: Document 06/09/17 13:09 [facility] (Rec: 06/09/17 13:27 [facility] [id number]) Nutritional Asmnt/Malnutrition Patient General Information Nutritional Screening High Risk Screening Diagnosis Sepsis, UTI, right and left lower lobe infiltrate, pneumonia Pertinent Medical Hx/Surgical Hx Alcohol problem, liver disease , cirrhosis of the liver, hepatic comas, seizures, trachestomy, PEG, asthma, COPD Subjective Information Pt is a 52-year-old male from [facility] admitted with chief complaint of shortness of breath and falling oxygen saturation. Pt has tracheostomy to ventilator. Pt was unable to provide nutritional hx. Pt appears well nourished with no signs of muscle or fat depletion. Order to resume tube feeding; bag of Novosource Renal at bedside not yet started. Abdomen Ultrasound 06/09 notes some abdominal ascites. Current Diet Order/ Nutrition Support Novosource Renal at 55 ml/hr = 2640kcals, 120gm protein, 946ml free water Patient / S.O Can't verbalize diet edu Pertinent Medications Oscal with Vitamin D, Cefepime , D5w, Iron, Folate, Culturelle, MagOxide, Mephyton , KCl Elixir, Vitamin B6, Vitamin B1, Depakene, Vancomycin Pertinent Labs (06/09) Na 148H (improving), K 3L, Alkaline Phosphatase 171H, Ammonia 64H, Albumin 3.3L Nutritional Hx/Data Height 1.68 m Height (Calculated Centimeters) 167.6 Current Weight (lbs) 76.657 kg Weight (Calculated Kilograms) 76.7 Weight (Calculated Grams) 94526.1 Usual body Weight (lbs) 168 % Usual Body Weight 100 Erin Body Weight 142 % Erin Body Weight 119 Recent Weight Change No Weight Status Overweight GI Symptoms GI Symptoms Diarrhea Difficult in: Chewing Swallowing Food Allergies No Usual diet at home Nepro 1.8 (237 ml) QID 0900, 1300, 1700, 2100, sugar free ProStat 30 ml Skin Integrity/Comment: Vitor 12. Skin intact. Estimated Nutritional Goals BEE in Kcals: Using Current wt Calories/Kcals/Kg Based on current wt 76.8 kg with consideration of sepsis: Kcals Calculated 6221-6564 kcals/day (27-32 kcals/kg) to prevent wt gain with overwt status Protein: Using Current wt Protein g/kg: Based on current wt 76.8 kg with consideration of sepsis: Protein Calculated 92-115 gm/day (1.2-1.5 gm/kg) Fluid: ml Per MD/DO due to abnormal electrolytes Nutritional Problem 1. Problem Problem Excessive intake from enteral nutrition related to Etiology increased energy intake from calorically dense tube feeding formula as evidenced by Signs/Symptoms: current tube feeding meets 104 % of higher end of estimated calories needs. Malnutrition Alert Protein-Calorie Malnutrition N/A Is there a minimum of two criteria No selected? Query Text:Check all the applicable criteria. A minimum of two criteria are recommended for diagnosis of either severe or non-severe malnutrition. Malnutrition Related to Morbid Obesity Malnutrition related to morbid obesity No Intervention/Recommendation Recommendations by RD Decrease Calorie Intake Comments 1. Recommend decrease tube feeding Novosource Renal at goal rate of 50 ml/hr to provide 2400 kcals, 109 gm protein, and 860 ml free water per day. Monitor renal labs to prioritize protein needs. Expected Outcomes/Goals Expected Outcomes/Goals Provide pt with 100% of estimated nutritional needs. Physician Parameters for PEM Serum Albumin (g/dl) 3.1 - 3.4 (Mild)
[2017-06-10] MEDS: Potassium Chloride Elixir 20 mEq /15 mL UDC GT SCH ×2 (08:58→17:24)
[2017-06-10] MEDS: Ferrous Sulfate 300 MG/5 ML UDC GT SCH ×2 (08:58→17:25)
[2017-06-10] MEDS: Docusate Sodium 100 mg/10 mL UD GT SCH ×2 (08:58→17:24)
[2017-06-10] MEDS: Calcium Carb/Vit D 500 mg/200 U Tab GT SCH (09:00)
[2017-06-10] MEDS: Lactobacillus Rhamnosus 10 Billion CFU Capsule PO SCH (09:00)
[2017-06-10 10:20] LABS: HCO3 26.4 mEq/L (20.0-26.0); pH 7.46 (7.35-7.45)
[2017-06-10 10:21] LABS: ABG SOURCE ARTERIAL; BE(B) 1.9 mEq/L (-3.0-3.0)
[2017-06-10 10:22] LABS: ALLEN TEST POSITIVE; FIO2 40; MECH RATE 12; MECH VT 500
[2017-06-10 10:23] LABS: CRITICAL VALUES REPORTED BY JC
[2017-06-10] MEDS: Chlorhexidine Gluconate 0.12% 480mL Bottle MM SCH (10:53)
[2017-06-10] MEDS: Polyvinyl Alcohol Ophth Soln 15 mL Bottle EACH EYE PRN (11:10)
--- NOTE | 2017-06-10 14:19 | General Progress Note ---
Subjective - Review of Systems Service Date: 06/10/17 Subjective: awake, on vent Objective - Results Result Diagrams: 06/10/17 04:40 06/10/17 04:40 Recent Labs: Laboratory Last Values WBC 4.3 Th/cmm (4.8-10.8) L 06/10/17 04:40 RBC 2.69 Mil/cmm (4.30-5.70) L 06/10/17 04:40 Hgb 8.9 gm/dL (13.2-17.3) L 06/10/17 04:40 Hct 25.7 % (39.0-49.0) L 06/10/17 04:40 MCV 95.2 fl (80-99) 06/10/17 04:40 MCH 32.9 pg (26.0-30.0) H 06/10/17 04:40 MCHC Differential 34.5 pg (28.0-36.0) 06/10/17 04:40 RDW 15.5 % (11.5-20.0) 06/10/17 04:40 Plt Count 51 Th/cmm (150-400) L D 06/10/17 04:40 MPV 10.1 fl 06/10/17 04:40 Neutrophils % 64.8 % (40.0-80.0) 06/10/17 04:40 Band Neutrophils % 4 % (0-10) 06/09/17 05:07 Lymphocytes % 18.4 % (20.0-50.0) L 06/10/17 04:40 Monocytes % 12.3 % (2.0-10.0) H 06/10/17 04:40 Eosinophils % 4.2 % (0.0-5.0) 06/10/17 04:40 Basophils % 0.3 % (0.0-2.0) 06/10/17 04:40 Neutrophils (Manual) 66 % (40-80) 06/09/17 05:07 Lymphocytes 20 % (20-50) 06/09/17 05:07 Monocytes 10 % (2-10) 06/09/17 05:07 Eosinophils 4 % (0-5) 06/08/17 04:59 Metamyelocytes 1 % (0-0) H 06/08/17 04:59 Nucleated RBCs 1.0 % (0-0) H 06/08/17 04:59 Platelet Estimate DECREASED PLATELETS (NORMAL) 06/09/17 05:07 Platelet Morphology NORMAL (NORMAL) 06/08/17 04:59 Anisocytosis 1+ 06/08/17 04:59 RBC Morph Micro Appear ABNORMAL (NORMAL) 06/08/17 04:59 Specimen Source ARTERIAL 06/10/17 08:43 Sample Site Left Radial 06/10/17 08:43 pH 7.46 (7.35-7.45) H 06/10/17 08:43 pCO2 36.0 mmHg (35.0-45.0) 06/10/17 08:43 pO2 92.0 mmHg (80.0-100.0) 06/10/17 08:43 HCO3 26.4 mEq/L (20.0-26.0) H 06/10/17 08:43 Base Excess 1.9 mEq/L (-3.0-3.0) 06/10/17 08:43 O2 Saturation 98.0 % (92.0-100.0) 06/10/17 08:43 Jose L Test POSITIVE 06/10/17 08:43 Vent Rate 12 06/10/17 08:43 Inspired O2 40 06/10/17 08:43 Tidal Volume 500 06/10/17 08:43 PEEP 5 06/10/17 08:43 Pressure (ins/psv/peep) N/A 06/10/17 08:43 Critical Value SAURABH 06/10/17 08:43 Sodium 141 mEq/L (136-145) 06/10/17 04:40 Potassium 3.4 mEq/L (3.5-5.1) L 06/10/17 04:40 Chloride 116 mEq/L (98-107) H 06/10/17 04:40 Carbon Dioxide 22.8 mEq/L (21.0-31.0) 06/10/17 04:40 Anion Gap 5.6 (7.0-16.0) L 06/10/17 04:40 BUN 14 mg/dL (7-25) 06/10/17 04:40 Creatinine 0.5 mg/dL (0.7-1.3) L 06/10/17 04:40 Est GFR ( Amer) > 60.0 ml/min (>90) 06/10/17 04:40 Est GFR (Non-Af Amer) > 60.0 ml/min 06/10/17 04:40 BUN/Creatinine Ratio 28.0 06/10/17 04:40 Glucose 105 mg/dL (70-105) 06/10/17 04:40 Whole Bld Lactic Acid 1.51 mmol/L (0.60-1.99) 06/08/17 04:59 Calcium 8.5 mg/dL (8.6-10.3) L 06/10/17 04:40 Phosphorus 2.7 mg/dL (2.5-5.0) 06/08/17 04:59 Magnesium 2.2 mg/dL (1.9-2.7) 06/09/17 05:07 Iron 71 ug/dL (38-169) 06/08/17 04:59 TIBC 173 ug/dL (250-450) L 06/08/17 04:59 Iron Saturation 41 % (15-55) 06/08/17 04:59 Unsaturated IBC 102 ug/dL (111-343) L 06/08/17 04:59 Ferritin 303 ng/mL (30-400) 06/08/17 04:59 Total Bilirubin 0.8 mg/dL (0.3-1.0) 06/09/17 05:07 Direct Bilirubin 0.40 mg/dL (0.0-0.2) H 06/09/17 05:07 AST 34 U/L (13-39) 06/09/17 05:07 ALT 20 U/L (7-52) 06/09/17 05:07 Alkaline Phosphatase 171 U/L (34-104) H 06/09/17 05:07 Ammonia 116 umol/L (16-53) H 06/10/17 04:40 Troponin I 0.01 ng/mL (0.01-0.05) 06/07/17 13:28 B-Natriuretic Peptide 91.8 pg/mL (5.0-100.0) 06/07/17 13:28 Total Protein 6.8 gm/dL (6.0-8.3) 06/09/17 05:07 Albumin 2.3 gm/dL (4.2-5.5) L 06/09/17 05:07 Globulin 4.5 gm/dL 06/09/17 05:07 Albumin/Globulin Ratio 0.5 (1.0-1.8) L 06/09/17 05:07 Vitamin B12 >1999 pg/mL (211-946) H 06/08/17 04:59 Folic Acid >20.0 ng/mL (>3.0) 06/08/17 04:59 Urine Source RANDOM 06/07/17 13:25 Urine Color NISA 06/07/17 13:25 Urine Clarity CLOUDY (CLEAR) 06/07/17 13:25 Urine pH 5.5 (4.6 - 8.0) 06/07/17 13:25 Ur Specific [place] 1.020 (1.005-1.030) 06/07/17 13:25 Urine Protein >=300 mg/dL (NEGATIVE) 06/07/17 13:25 Urine Glucose (UA) NEGATIVE mg/dL (NEGATIVE) 06/07/17 13:25 Urine Ketones 15 mg/dL (NEGATIVE) H 06/07/17 13:25 Urine Blood LARGE (NEGATIVE) H 06/07/17 13:25 Urine Nitrate POSITIVE (NEGATIVE) H 06/07/17 13:25 Urine Bilirubin MODERATE (NEGATIVE) H 06/07/17 13:25 Urine Urobilinogen 2.0 E.U./dL (0.2 - 1.0) 06/07/17 13:25 Ur Leukocyte Esterase MODERATE (NEGATIVE) H 06/07/17 13:25 Urine RBC >100 /hpf (0-5) H 06/07/17 13:25 Urine WBC 2-5 /hpf (0-5) H 06/07/17 13:25 Ur Epithelial Cells OCCASIONAL /lpf (FEW) 06/07/17 13:25 Urine Bacteria FEW /hpf (NONE SEEN) 06/07/17 13:25 Ur Random Sodium 119 mmol/L 06/08/17 18:16 Stool Occult Blood NEGATIVE (NEGATIVE) 06/09/17 05:13 Vancomycin Trough 14.9 ug/mL (10-20) 06/09/17 09:30 Blood Type O POSITIVE 06/09/17 09:30 Antibody Screen NEGATIVE 06/09/17 09:30 - Physical Exam Vitals and I&O: Vital Signs Temp 99.3 F 06/10/17 04:00 Pulse 69 06/10/17 13:55 Resp 26 06/10/17 06:00 BP 106/52 06/10/17 13:55 Pulse Ox 100 06/10/17 13:23 Intake & Output 06/09/17 06/10/17 06/10/17 18:59 06:59 18:59 Intake Total 1440 55 910 Output Total 2050 1450 Balance -610 55 -540 Weight (lbs) 76.657 kg 79.832 kg 81.828 kg Intake: Intake, IV Amount 350 55 50 Cefepime 1 gm In Dextrose 100 50 5% 50 ml @ 100 mls/hr IV Q8H [facility] Rx#:[id number] Vancomycin HCl 1.25 gm In 250 55 0 Sodium Chloride 0.9% 250 ml @ 165 mls/hr IV Q12H [facility] Rx#:[id number] Tube Feeding 580 660 Blood Product 350 Other 160 200 Output: Urine 2049 1450 Other: # Bowel Movements 3 Stool Characteristics Liquid Liquid Active Medications: Current Medications Albuterol/Ipratropium (Duoneb Neb) 3 ml HHN Q4HR [facility] Stop: 08/06/17 19:59 Last Admin: 06/09/17 20:05 Dose: Not Given Albuterol/Ipratropium (Duoneb Neb) 3 ml HHN Q4HRT [facility] Stop: 08/07/17 18:59 Last Admin: 06/10/17 11:19 Dose: 3 ml Amlodipine Besylate (Norvasc) 5 mg GT Q12HR [facility] Stop: 08/06/17 20:59 Last Admin: 06/10/17 09:01 Dose: 5 mg Artificial Tears (Artificial Tears Ophth Soln) 2 drop EACH EYE Q6H PRN PRN Reason: eye dryness Stop: 08/06/17 20:54 Last Admin: 06/10/17 11:10 Dose: 2 drop Atorvastatin Calcium (Lipitor) 10 mg GT HS [place] PRN Reason: Protocol Stop: 08/06/17 20:59 Last Admin: 06/09/17 21:31 Dose: 10 mg Bisacodyl (Dulcolax 10 Mg Supp) 10 mg RC DAILY PRN PRN Reason: Constipation Stop: 08/06/17 19:17 Budesonide (Pulmicort) 0.5 mg HHN BIDRT [facility] Stop: 08/07/17 18:59 Last Admin: 06/10/17 07:01 Dose: 0.5 mg Calcium/Vitamin D (Oscal W/Vitamin D) 1 tab GT DAILY [facility] Stop: 08/07/17 08:59 Last Admin: 06/10/17 09:00 Dose: 1 tab Chlorhexidine Gluconate (Peridex) 15 ml MM Q12HR [facility] Stop: 08/06/17 20:59 Last Admin: 06/10/17 10:53 Dose: 15 ml Chlorhexidine Gluconate (Peridex) 15 ml MM 0800,1999 [facility] Stop: 08/08/17 19:59 Clonazepam (Klonopin) 2 mg GT DAILY [facility] Stop: 08/07/17 08:59 Last Admin: 06/10/17 09:00 Dose: 2 mg Docusate Sodium (Colace) 100 mg GT BID [facility] Stop: 08/06/17 20:59 Last Admin: 06/10/17 08:58 Dose: 100 mg Ferrous Sulfate (Iron) 300 mg GT BID [facility] Stop: 08/06/17 20:59 Last Admin: 06/10/17 08:58 Dose: 300 mg Folic Acid (Folate) 2.5 mg GT DAILY [facility] Stop: 08/07/17 08:59 Last Admin: 06/10/17 08:58 Dose: 2.5 mg Hydralazine HCl (Apresoline) 50 mg GT Q8HR [facility] Stop: 08/06/17 20:59 Last Admin: 06/10/17 13:55 Dose: 50 mg Cefepime HCl 1 gm/ Dextrose 50 mls @ 100 mls/hr IV Q8H [facility] Stop: 08/07/17 00:59 Last Admin: 06/10/17 09:00 Dose: 100 mls/hr Vancomycin HCl 1.25 gm/ Sodium (Chloride) 250 mls @ 165 mls/hr IV Q12H [facility] Stop: 08/07/17 09:59 Last Admin: 06/10/17 11:41 Dose: 165 mls/hr Dextrose (D5w) 1,000 mls @ 100 mls/hr IV .Q10H [facility] Stop: 08/07/17 09:37 Last Admin: 06/09/17 21:08 Dose: 100 mls/hr Lactobacillus Rhamnosus (Culturelle) 1 each PO DAILY [facility] Stop: 08/08/17 08:59 Last Admin: 06/10/17 09:00 Dose: 1 each Lactulose (Cephulac) 30 gm GT Q6HR [facility] Stop: 08/08/17 17:59 Last Admin: 06/10/17 13:58 Dose: 30 gm Levetiracetam (Keppra) 1,000 mg GT Q8HR [facility] Stop: 08/06/17 20:59 Last Admin: 06/10/17 13:48 Dose: 1,000 mg Magnesium Hydroxide (Milk Of Magnesia) 30 ml GT HS PRN PRN Reason: Constipation Stop: 08/06/17 19:17 Magnesium Oxide (Mag-Oxide) 400 mg GT DAILY [facility] Stop: 08/07/17 08:59 Last Admin: 06/10/17 09:00 Dose: 400 mg Metoprolol Tartrate (Lopressor) 100 mg GT Q12HR [facility] Stop: 08/06/17 20:59 Last Admin: 06/10/17 08:59 Dose: 100 mg Miscellaneous (Vancomycin Iv Per Pharmacy) 1 ea PRN PRN PRN Reason: PROTOCOL Stop: 08/07/17 07:59 Miscellaneous (Probiotic Screen) 1 ea PRN PRN PRN Reason: PROTOCOL Stop: 08/07/17 10:42 Phytonadione (Mephyton) 10 mg GT DAILY [facility] Stop: 08/07/17 19:59 Last Admin: 06/10/17 09:00 Dose: 10 mg Potassium Chloride (Potassium Chloride Elixir) 20 meq GT BID [facility] Stop: 08/07/17 08:59 Last Admin: 06/10/17 08:58 Dose: 20 meq Propranolol HCl (Inderal) 20 mg GT TID [facility] Stop: 08/06/17 20:59 Last Admin: 06/10/17 13:50 Dose: 20 mg Pyridoxine HCl (Vitamin B6) 100 mg GT DAILY [facility] Stop: 08/07/17 08:59 Last Admin: 06/10/17 09:01 Dose: 100 mg Rifaximin (Xifaxan) 500 mg PO BID [facility] Stop: 08/07/17 16:59 Last Admin: 06/10/17 09:00 Dose: 500 mg Sodium Phosphate (Fleet Enema) 135 ml RC Q48H PRN PRN Reason: IF DULCOLAX IS INEFFECTIVE Stop: 08/06/17 19:17 Thiamine HCl (Vitamin B1) 100 mg GT DAILY [facility] Stop: 08/07/17 08:59 Last Admin: 06/10/17 09:00 Dose: 100 mg Valproate Sodium (Depakene) 500 mg GT TID [facility] PRN Reason: Protocol Stop: 08/06/17 20:59 Last Admin: 06/10/17 14:03 Dose: Not Given General: Alert, No acute distress HEENT: Atraumatic, PERRLA, EOMI, Mucous membr. moist/pink Neck: Supple, +2 carotid pulse wo bruit Cardiovascular: Regular rate, Normal S1, Normal S2 Lungs: Clear to auscultation Abdomen: Bowel sounds, Soft Extremities: no Edema Neurological: Sensation intact Skin: no Rash - Procedures Procedures: Procedures Procedure Code Date RESPIRATORY VENTILATION, 24-96 [employer]SEC[employer] HOURS [id number] 06/07/17 Assessment/Plan - Problem List Patient Problems: All Active Problems ELEVATED NA+, AND BUN LEVELS (Acute) - Assessment Assessment: Hypernatremia RFVD Sepsis etio? CLD Thrombocytopenia Anemia of CD Hypokalemia - Plan Plan: Lab - Result Diagrams 06/09/17 09:30 06/09/17 05:07 Current Medications Albuterol/Ipratropium (Duoneb Neb) 3 ml HHN Q4HR [facility] Stop: 08/06/17 19:59 Last Admin: 06/09/17 11:08 Dose: 3 ml Albuterol/Ipratropium (Duoneb Neb) 3 ml HHN Q4HRT [facility] Stop: 08/07/17 18:59 Amlodipine Besylate (Norvasc) 5 mg GT Q12HR [facility] Stop: 08/06/17 20:59 Last Admin: 06/09/17 10:05 Dose: 5 mg Artificial Tears (Artificial Tears Ophth Soln) 2 drop EACH EYE Q6H PRN PRN Reason: eye dryness Stop: 08/06/17 20:54 Atorvastatin Calcium (Lipitor) 10 mg GT HS [facility] PRN Reason: Protocol Stop: 08/06/17 20:59 Last Admin: 06/08/17 21:32 Dose: 10 mg Bisacodyl (Dulcolax 10 Mg Supp) 10 mg RC DAILY PRN PRN Reason: Constipation Stop: 08/06/17 19:17 Budesonide (Pulmicort) 0.5 mg HHN BIDRT [facility] Stop: 08/07/17 18:59 Last Admin: 06/08/17 19:10 Dose: 0.5 mg Calcium/Vitamin D (Oscal W/Vitamin D) 1 tab GT DAILY [facility] Stop: 08/07/17 08:59 Last Admin: 06/09/17 10:05 Dose: 1 tab Chlorhexidine Gluconate (Peridex) 15 ml MM Q12HR [facility] Stop: 08/06/17 20:59 Last Admin: 06/09/17 09:00 Dose: 15 ml Clonazepam (Klonopin) 2 mg GT DAILY [facility] Stop: 08/07/17 08:59 Last Admin: 06/09/17 10:05 Dose: 2 mg Docusate Sodium (Colace) 100 mg GT BID [facility] Stop: 08/06/17 20:59 Last Admin: 06/09/17 09:00 Dose: Not Given Ferrous Sulfate (Iron) 300 mg GT BID [facility] Stop: 08/06/17 20:59 Last Admin: 06/09/17 10:03 Dose: 300 mg Folic Acid (Folate) 2.5 mg GT DAILY [facility] Stop: 08/07/17 08:59 Last Admin: 06/09/17 10:05 Dose: 2.5 mg Hydralazine HCl (Apresoline) 50 mg GT Q8HR [facility] Stop: 08/06/17 20:59 Last Admin: 06/09/17 12:56 Dose: 50 mg Cefepime HCl 1 gm/ Dextrose 50 mls @ 100 mls/hr IV Q8H [facility] Stop: 08/07/17 00:59 Last Infusion: 06/09/17 09:30 Dose: Infused Vancomycin HCl 1.25 gm/ Sodium (Chloride) 250 mls @ 165 mls/hr IV Q12H [facility] Stop: 08/07/17 09:59 Last Infusion: 06/09/17 11:31 Dose: Infused Dextrose (D5w) 1,000 mls @ 150 mls/hr IV .Q6H40M [facility] Stop: 08/07/17 09:37 Last Admin: 06/09/17 07:33 Dose: 150 mls/hr Lactobacillus Rhamnosus (Culturelle) 1 each PO DAILY [facility] Stop: 08/08/17 08:59 Last Admin: 06/09/17 10:04 Dose: 1 each Lactulose (Cephulac) 30 gm GT Q8HR [facility] Stop: 08/06/17 20:59 Last Admin: 06/09/17 12:56 Dose: Not Given Levetiracetam (Keppra) 1,000 mg GT Q8HR [facility] Stop: 08/06/17 20:59 Last Admin: 06/09/17 12:56 Dose: 1,000 mg Magnesium Hydroxide (Milk Of Magnesia) 30 ml GT HS PRN PRN Reason: Constipation Stop: 08/06/17 19:17 Magnesium Oxide (Mag-Oxide) 400 mg GT DAILY [facility] Stop: 08/07/17 08:59 Last Admin: 06/09/17 10:04 Dose: 400 mg Metoprolol Tartrate (Lopressor) 100 mg GT Q12HR [facility] Stop: 08/06/17 20:59 Last Admin: 06/09/17 10:04 Dose: 100 mg Miscellaneous (Vancomycin Iv Per Pharmacy) 1 ea PRN PRN PRN Reason: PROTOCOL Stop: 08/07/17 07:59 Miscellaneous (Probiotic Screen) 1 ea PRN PRN PRN Reason: PROTOCOL Stop: 08/07/17 10:42 Phytonadione (Mephyton) 10 mg GT DAILY [facility] Stop: 08/07/17 19:59 Last Admin: 06/09/17 10:06 Dose: 10 mg Potassium Chloride (Potassium Chloride Elixir) 20 meq GT BID [facility] Stop: 08/07/17 08:59 Last Admin: 06/09/17 11:30 Dose: 20 meq Propranolol HCl (Inderal) 20 mg GT TID [facility] Stop: 08/06/17 20:59 Last Admin: 06/09/17 10:03 Dose: 20 mg Pyridoxine HCl (Vitamin B6) 100 mg GT DAILY [facility] Stop: 08/07/17 08:59 Last Admin: 06/09/17 10:05 Dose: 100 mg Rifaximin (Xifaxan) 500 mg PO BID [facility] Stop: 08/07/17 16:59 Last Admin: 06/09/17 10:06 Dose: 500 mg Sodium Phosphate (Fleet Enema) 135 ml RC Q48H PRN PRN Reason: IF DULCOLAX IS INEFFECTIVE Stop: 08/06/17 19:17 Thiamine HCl (Vitamin B1) 100 mg GT DAILY [facility] Stop: 08/07/17 08:59 Last Admin: 06/09/17 10:05 Dose: 100 mg Valproate Sodium (Depakene) 500 mg GT TID [facility] PRN Reason: Protocol Stop: 08/06/17 20:59 Last Admin: 06/09/17 10:03 Dose: 500 mg CXR: CM, B/L ATx replace K continue D5W but decrease rate F/U electrolytes Lab - Result Diagrams 06/10/17 04:40 06/10/17 04:40 Nutritional Asmnt/Malnutr-PDOC - Dietary Evaluation Malnutrition Findings (Please click <Entered> for more info): Nutritional Asmnt/Malnutrition Start: 06/09/17 11: 00 Text: Status: Complete Freq: Document 06/09/17 13:09 [facility] (Rec: 06/09/17 13:27 [facility] [email or web address]) Nutritional Asmnt/Malnutrition Patient General Information Nutritional Screening High Risk Screening Diagnosis Sepsis, UTI, right and left lower lobe infiltrate, pneumonia Pertinent Medical Hx/Surgical Hx Alcohol problem, liver disease , cirrhosis of the liver, hepatic comas, seizures, trachestomy, PEG, asthma, COPD Subjective Information Pt is a 52-year-old male from [facility] admitted with chief complaint of shortness of breath and falling oxygen saturation. Pt has tracheostomy to ventilator. Pt was unable to provide nutritional hx. Pt appears well nourished with no signs of muscle or fat depletion. Order to resume tube feeding; bag of Novosource Renal at bedside not yet started. Abdomen Ultrasound 06/09 notes some abdominal ascites. Current Diet Order/ Nutrition Support Novosource Renal at 55 ml/hr = 2640kcals, 120gm protein, 946ml free water Patient / S.O Can't verbalize diet edu Pertinent Medications Oscal with Vitamin D, Cefepime , D5w, Iron, Folate, Culturelle, MagOxide, Mephyton , KCl Elixir, Vitamin B6, Vitamin B1, Depakene, Vancomycin Pertinent Labs (06/09) Na 148H (improving), K 3L, Alkaline Phosphatase 171H, Ammonia 64H, Albumin 3.3L Nutritional Hx/Data Height 1.68 m Height (Calculated Centimeters) 167.6 Current Weight (lbs) 76.657 kg Weight (Calculated Kilograms) 76.7 Weight (Calculated Grams) 37294.1 Usual body Weight (lbs) 168 % Usual Body Weight 100 [employer] Body Weight 142 % [employer] Body Weight 119 Recent Weight Change No Weight Status Overweight GI Symptoms GI Symptoms Diarrhea Difficult in: Chewing Swallowing Food Allergies No Usual diet at home Nepro 1.8 (237 ml) QID 0900, 1300, 1700, 2100, sugar free ProStat 30 ml Skin Integrity/Comment: Vitor 12. Skin intact. Estimated Nutritional Goals BEE in Kcals: Using Current wt Calories/Kcals/Kg Based on current wt 76.8 kg with consideration of sepsis: Kcals Calculated 2120-0873 kcals/day (27-32 kcals/kg) to prevent wt gain with overwt status Protein: Using Current wt Protein g/kg: Based on current wt 76.8 kg with consideration of sepsis: Protein Calculated 92-115 gm/day (1.2-1.5 gm/kg) Fluid: ml Per MD/DO due to abnormal electrolytes Nutritional Problem 1. Problem Problem Excessive intake from enteral nutrition related to Etiology increased energy intake from calorically dense tube feeding formula as evidenced by Signs/Symptoms: current tube feeding meets 104 % of higher end of estimated calories needs. Malnutrition Alert Protein-Calorie Malnutrition N/A Is there a minimum of two criteria No selected? Query Text:Check all the applicable criteria. A minimum of two criteria are recommended for diagnosis of either severe or non-severe malnutrition. Malnutrition Related to Morbid Obesity Malnutrition related to morbid obesity No Intervention/Recommendation Recommendations by RD Decrease Calorie Intake Comments 1. Recommend decrease tube feeding Novosource Renal at goal rate of 50 ml/hr to provide 2400 kcals, 109 gm protein, and 860 ml free water per day. Monitor renal labs to prioritize protein needs. Expected Outcomes/Goals Expected Outcomes/Goals Provide pt with 100% of estimated nutritional needs. Physician Parameters for PEM Serum Albumin (g/dl) 3.1 - 3.4 (Mild)
--- NOTE | 2017-06-10 15:58 | General Progress Note ---
Subjective - Review of Systems Service Date: 06/10/17 Events since last encounter: NON COMMUNICATIVE Objective - Results Result Diagrams: 06/10/17 04:40 06/10/17 04:40 Recent Labs: Laboratory Last Values WBC 4.3 Th/cmm (4.8-10.8) L 06/10/17 04:40 RBC 2.69 Mil/cmm (4.30-5.70) L 06/10/17 04:40 Hgb 8.9 gm/dL (13.2-17.3) L 06/10/17 04:40 Hct 25.7 % (39.0-49.0) L 06/10/17 04:40 MCV 95.2 fl (80-99) 06/10/17 04:40 MCH 32.9 pg (26.0-30.0) H 06/10/17 04:40 MCHC Differential 34.5 pg (28.0-36.0) 06/10/17 04:40 RDW 15.5 % (11.5-20.0) 06/10/17 04:40 Plt Count 51 Th/cmm (150-400) L D 06/10/17 04:40 MPV 10.1 fl 06/10/17 04:40 Neutrophils % 64.8 % (40.0-80.0) 06/10/17 04:40 Band Neutrophils % 4 % (0-10) 06/09/17 05:07 Lymphocytes % 18.4 % (20.0-50.0) L 06/10/17 04:40 Monocytes % 12.3 % (2.0-10.0) H 06/10/17 04:40 Eosinophils % 4.2 % (0.0-5.0) 06/10/17 04:40 Basophils % 0.3 % (0.0-2.0) 06/10/17 04:40 Neutrophils (Manual) 66 % (40-80) 06/09/17 05:07 Lymphocytes 20 % (20-50) 06/09/17 05:07 Monocytes 10 % (2-10) 06/09/17 05:07 Eosinophils 4 % (0-5) 06/08/17 04:59 Metamyelocytes 1 % (0-0) H 06/08/17 04:59 Nucleated RBCs 1.0 % (0-0) H 06/08/17 04:59 Platelet Estimate DECREASED PLATELETS (NORMAL) 06/09/17 05:07 Platelet Morphology NORMAL (NORMAL) 06/08/17 04:59 Anisocytosis 1+ 06/08/17 04:59 RBC Morph Micro Appear ABNORMAL (NORMAL) 06/08/17 04:59 Specimen Source ARTERIAL 06/10/17 08:43 Sample Site Left Radial 06/10/17 08:43 pH 7.46 (7.35-7.45) H 06/10/17 08:43 pCO2 36.0 mmHg (35.0-45.0) 06/10/17 08:43 pO2 92.0 mmHg (80.0-100.0) 06/10/17 08:43 HCO3 26.4 mEq/L (20.0-26.0) H 06/10/17 08:43 Base Excess 1.9 mEq/L (-3.0-3.0) 06/10/17 08:43 O2 Saturation 98.0 % (92.0-100.0) 06/10/17 08:43 Jose L Test POSITIVE 06/10/17 08:43 Vent Rate 12 06/10/17 08:43 Inspired O2 40 06/10/17 08:43 Tidal Volume 500 06/10/17 08:43 PEEP 5 06/10/17 08:43 Pressure (ins/psv/peep) N/A 06/10/17 08:43 Critical Value SAURABH 06/10/17 08:43 Sodium 141 mEq/L (136-145) 06/10/17 04:40 Potassium 3.4 mEq/L (3.5-5.1) L 06/10/17 04:40 Chloride 116 mEq/L (98-107) H 06/10/17 04:40 Carbon Dioxide 22.8 mEq/L (21.0-31.0) 06/10/17 04:40 Anion Gap 5.6 (7.0-16.0) L 06/10/17 04:40 BUN 14 mg/dL (7-25) 06/10/17 04:40 Creatinine 0.5 mg/dL (0.7-1.3) L 06/10/17 04:40 Est GFR ( Amer) > 60.0 ml/min (>90) 06/10/17 04:40 Est GFR (Non-Af Amer) > 60.0 ml/min 06/10/17 04:40 BUN/Creatinine Ratio 28.0 06/10/17 04:40 Glucose 105 mg/dL (70-105) 06/10/17 04:40 Whole Bld Lactic Acid 1.51 mmol/L (0.60-1.99) 06/08/17 04:59 Calcium 8.5 mg/dL (8.6-10.3) L 06/10/17 04:40 Phosphorus 2.7 mg/dL (2.5-5.0) 06/08/17 04:59 Magnesium 2.2 mg/dL (1.9-2.7) 06/09/17 05:07 Iron 71 ug/dL (38-169) 06/08/17 04:59 TIBC 173 ug/dL (250-450) L 06/08/17 04:59 Iron Saturation 41 % (15-55) 06/08/17 04:59 Unsaturated IBC 102 ug/dL (111-343) L 06/08/17 04:59 Ferritin 303 ng/mL (30-400) 06/08/17 04:59 Total Bilirubin 0.8 mg/dL (0.3-1.0) 06/09/17 05:07 Direct Bilirubin 0.40 mg/dL (0.0-0.2) H 06/09/17 05:07 AST 34 U/L (13-39) 06/09/17 05:07 ALT 20 U/L (7-52) 06/09/17 05:07 Alkaline Phosphatase 171 U/L (34-104) H 06/09/17 05:07 Ammonia 116 umol/L (16-53) H 06/10/17 04:40 Troponin I 0.01 ng/mL (0.01-0.05) 06/07/17 13:28 B-Natriuretic Peptide 91.8 pg/mL (5.0-100.0) 06/07/17 13:28 Total Protein 6.8 gm/dL (6.0-8.3) 06/09/17 05:07 Albumin 2.3 gm/dL (4.2-5.5) L 06/09/17 05:07 Globulin 4.5 gm/dL 06/09/17 05:07 Albumin/Globulin Ratio 0.5 (1.0-1.8) L 06/09/17 05:07 Vitamin B12 >1999 pg/mL (211-946) H 06/08/17 04:59 Folic Acid >20.0 ng/mL (>3.0) 06/08/17 04:59 Urine Source RANDOM 06/07/17 13:25 Urine Color NISA 06/07/17 13:25 Urine Clarity CLOUDY (CLEAR) 06/07/17 13:25 Urine pH 5.5 (4.6 - 8.0) 06/07/17 13:25 Ur Specific [place] 1.020 (1.005-1.030) 06/07/17 13:25 Urine Protein >=300 mg/dL (NEGATIVE) 06/07/17 13:25 Urine Glucose (UA) NEGATIVE mg/dL (NEGATIVE) 06/07/17 13:25 Urine Ketones 15 mg/dL (NEGATIVE) H 06/07/17 13:25 Urine Blood LARGE (NEGATIVE) H 06/07/17 13:25 Urine Nitrate POSITIVE (NEGATIVE) H 06/07/17 13:25 Urine Bilirubin MODERATE (NEGATIVE) H 06/07/17 13:25 Urine Urobilinogen 2.0 E.U./dL (0.2 - 1.0) 06/07/17 13:25 Ur Leukocyte Esterase MODERATE (NEGATIVE) H 06/07/17 13:25 Urine RBC >100 /hpf (0-5) H 06/07/17 13:25 Urine WBC 2-5 /hpf (0-5) H 06/07/17 13:25 Ur Epithelial Cells OCCASIONAL /lpf (FEW) 06/07/17 13:25 Urine Bacteria FEW /hpf (NONE SEEN) 06/07/17 13:25 Ur Random Sodium 119 mmol/L 06/08/17 18:16 Stool Occult Blood NEGATIVE (NEGATIVE) 06/09/17 05:13 Vancomycin Trough 14.9 ug/mL (10-20) 06/09/17 09:30 Blood Type O POSITIVE 06/09/17 09:30 Antibody Screen NEGATIVE 06/09/17 09:30 - Physical Exam Vitals and I&O: Vital Signs Temp 98 F 06/10/17 08:00 Pulse 71 06/10/17 14:58 Resp 24 06/10/17 08:00 BP 106/52 06/10/17 13:55 Pulse Ox 98 06/10/17 14:58 Intake & Output 06/09/17 06/10/17 06/10/17 18:59 06:59 18:59 Intake Total 1440 55 910 Output Total 2050 1450 Balance -610 55 -540 Weight (lbs) 76.657 kg 79.832 kg 81.828 kg Intake: Intake, IV Amount 350 55 50 Cefepime 1 gm In Dextrose 100 50 5% 50 ml @ 100 mls/hr IV Q8H [facility] Rx#:[id number] Vancomycin HCl 1.25 gm In 250 55 0 Sodium Chloride 0.9% 250 ml @ 165 mls/hr IV Q12H [facility] Rx#:[id number] Tube Feeding 580 660 Blood Product 350 Other 160 200 Output: Urine 2049 1450 Other: # Bowel Movements 3 Stool Characteristics Liquid Liquid Liquid Active Medications: Current Medications Albuterol/Ipratropium (Duoneb Neb) 3 ml HHN Q4HR [place] Stop: 08/06/17 19:59 Last Admin: 06/09/17 20:05 Dose: Not Given Albuterol/Ipratropium (Duoneb Neb) 3 ml HHN Q4HRT [place] Stop: 08/07/17 18:59 Last Admin: 06/10/17 14:57 Dose: 3 ml Amlodipine Besylate (Norvasc) 5 mg GT Q12HR [place] Stop: 08/06/17 20:59 Last Admin: 06/10/17 09:01 Dose: 5 mg Artificial Tears (Artificial Tears Ophth Soln) 2 drop EACH EYE Q6H PRN PRN Reason: eye dryness Stop: 08/06/17 20:54 Last Admin: 06/10/17 11:10 Dose: 2 drop Atorvastatin Calcium (Lipitor) 10 mg GT HS [place] PRN Reason: Protocol Stop: 08/06/17 20:59 Last Admin: 06/09/17 21:31 Dose: 10 mg Bisacodyl (Dulcolax 10 Mg Supp) 10 mg RC DAILY PRN PRN Reason: Constipation Stop: 08/06/17 19:17 Budesonide (Pulmicort) 0.5 mg HHN BIDRT [place] Stop: 08/07/17 18:59 Last Admin: 06/10/17 07:01 Dose: 0.5 mg Calcium/Vitamin D (Oscal W/Vitamin D) 1 tab GT DAILY [place] Stop: 08/07/17 08:59 Last Admin: 06/10/17 09:00 Dose: 1 tab Chlorhexidine Gluconate (Peridex) 15 ml MM Q12HR [place] Stop: 08/06/17 20:59 Last Admin: 06/10/17 10:53 Dose: 15 ml Chlorhexidine Gluconate (Peridex) 15 ml MM 0800,2000 [place] Stop: 08/08/17 19:59 Clonazepam (Klonopin) 2 mg GT DAILY [place] Stop: 08/07/17 08:59 Last Admin: 06/10/17 09:00 Dose: 2 mg Docusate Sodium (Colace) 100 mg GT BID [place] Stop: 08/06/17 20:59 Last Admin: 06/10/17 08:58 Dose: 100 mg Ferrous Sulfate (Iron) 300 mg GT BID [place] Stop: 08/06/17 20:59 Last Admin: 06/10/17 08:58 Dose: 300 mg Folic Acid (Folate) 2.5 mg GT DAILY [place] Stop: 08/07/17 08:59 Last Admin: 06/10/17 08:58 Dose: 2.5 mg Hydralazine HCl (Apresoline) 50 mg GT Q8HR [place] Stop: 08/06/17 20:59 Last Admin: 06/10/17 13:55 Dose: 50 mg Cefepime HCl 1 gm/ Dextrose 50 mls @ 100 mls/hr IV Q8H [place] Stop: 08/07/17 00:59 Last Admin: 06/10/17 09:00 Dose: 100 mls/hr Vancomycin HCl 1.25 gm/ Sodium (Chloride) 250 mls @ 165 mls/hr IV Q12H [place] Stop: 08/07/17 09:59 Last Admin: 06/10/17 11:41 Dose: 165 mls/hr Dextrose (D5w) 1,000 mls @ 100 mls/hr IV .Q10H [place] Stop: 08/07/17 09:37 Last Admin: 06/09/17 21:08 Dose: 100 mls/hr Lactobacillus Rhamnosus (Culturelle) 1 each PO DAILY [place] Stop: 08/08/17 08:59 Last Admin: 06/10/17 09:00 Dose: 1 each Lactulose (Cephulac) 30 gm GT Q6HR [place] Stop: 08/08/17 17:59 Last Admin: 06/10/17 13:58 Dose: 30 gm Levetiracetam (Keppra) 1,000 mg GT Q8HR [place] Stop: 08/06/17 20:59 Last Admin: 06/10/17 13:48 Dose: 1,000 mg Magnesium Hydroxide (Milk Of Magnesia) 30 ml GT HS PRN PRN Reason: Constipation Stop: 08/06/17 19:17 Magnesium Oxide (Mag-Oxide) 400 mg GT DAILY [place] Stop: 08/07/17 08:59 Last Admin: 06/10/17 09:00 Dose: 400 mg Metoprolol Tartrate (Lopressor) 100 mg GT Q12HR [place] Stop: 08/06/17 20:59 Last Admin: 06/10/17 08:59 Dose: 100 mg Miscellaneous (Vancomycin Iv Per Pharmacy) 1 ea PRN PRN PRN Reason: PROTOCOL Stop: 08/07/17 07:59 Miscellaneous (Probiotic Screen) 1 [facility] PRN PRN PRN Reason: PROTOCOL Stop: 08/07/17 10:42 Phytonadione (Mephyton) 10 mg GT DAILY [place] Stop: 08/07/17 19:59 Last Admin: 06/10/17 09:00 Dose: 10 mg Potassium Chloride (Potassium Chloride Elixir) 20 meq GT BID [place] Stop: 08/07/17 08:59 Last Admin: 06/10/17 08:58 Dose: 20 meq Propranolol HCl (Inderal) 20 mg GT TID [place] Stop: 08/06/17 20:59 Last Admin: 06/10/17 13:50 Dose: 20 mg Pyridoxine HCl (Vitamin B6) 100 mg GT DAILY [place] Stop: 08/07/17 08:59 Last Admin: 06/10/17 09:01 Dose: 100 mg Rifaximin (Xifaxan) 500 mg PO BID [place] Stop: 08/07/17 16:59 Last Admin: 06/10/17 09:00 Dose: 500 mg Sodium Phosphate (Fleet Enema) 135 ml RC Q48H PRN PRN Reason: IF DULCOLAX IS INEFFECTIVE Stop: 08/06/17 19:17 Thiamine HCl (Vitamin B1) 100 mg GT DAILY [place] Stop: 08/07/17 08:59 Last Admin: 06/10/17 09:00 Dose: 100 mg Valproate Sodium (Depakene) 500 mg GT TID [place] PRN Reason: Protocol Stop: 08/06/17 20:59 Last Admin: 06/10/17 14:03 Dose: Not Given General: Alert, No acute distress HEENT: Atraumatic, PERRLA, EOMI, Mucous membr. moist/pink Neck: Supple, +2 carotid pulse wo bruit Cardiovascular: Regular rate, Normal S1, Normal S2 Lungs: Clear to auscultation Abdomen: Bowel sounds, Soft Extremities: no Edema Neurological: Sensation intact Skin: no Rash - Procedures Procedures: Procedures Procedure Code Date RESPIRATORY VENTILATION, 24-96 CONSECUTIVE HOURS [id number] 06/07/17 Assessment/Plan - Problem List Patient Problems: All Active Problems ELEVATED NA+, AND BUN LEVELS (Acute) - Assessment Assessment: * SPLENOMEGALY. * THROMBOCYTOPENIA. S/P TX * RESPIRATORY FAILURE. * ANEMIA OF CHRONIC DISEASE. FOLLOW FE STUDIES, CBC Nutritional Asmnt/Malnutr-PDOC - Dietary Evaluation Malnutrition Findings (Please click <Entered> for more info): Nutritional Asmnt/Malnutrition Start: 06/09/17 11: 00 Text: Status: Complete Freq: Document 06/09/17 13:09 [facility] (Rec: 06/09/17 13:27 [facility] [id number]) Nutritional Asmnt/Malnutrition Patient General Information Nutritional Screening High Risk Screening Diagnosis Sepsis, UTI, right and left lower lobe infiltrate, pneumonia Pertinent Medical Hx/Surgical Hx Alcohol problem, liver disease , cirrhosis of the liver, hepatic comas, seizures, trachestomy, PEG, asthma, COPD Subjective Information Pt is a 52-year-old male from [facility] admitted with chief complaint of shortness of breath and falling oxygen saturation. Pt has tracheostomy to ventilator. Pt was unable to provide nutritional hx. Pt appears well nourished with no signs of muscle or fat depletion. Order to resume tube feeding; bag of Novosource Renal at bedside not yet started. Abdomen Ultrasound 06/09 notes some abdominal ascites. Current Diet Order/ Nutrition Support Novosource Renal at 55 ml/hr = 2640kcals, 120gm protein, 946ml free water Patient / S.O Can't verbalize diet edu Pertinent Medications Oscal with Vitamin D, Cefepime , D5w, Iron, Folate, Culturelle, MagOxide, Mephyton , KCl Elixir, Vitamin B6, Vitamin B1, Depakene, Vancomycin Pertinent Labs (06/09) Na 148H (improving), K 3L, Alkaline Phosphatase 171H, Ammonia 64H, Albumin 3.3L Nutritional Hx/Data Height 1.68 m Height (Calculated Centimeters) 167.6 Current Weight (lbs) 76.657 kg Weight (Calculated Kilograms) 76.7 Weight (Calculated Grams) 22496.1 Usual body Weight (lbs) 168 % Usual Body Weight 100 [place] Body Weight 142 % [place] Body Weight 119 Recent Weight Change No Weight Status Overweight GI Symptoms GI Symptoms Diarrhea Difficult in: Chewing Swallowing Food Allergies No Usual diet at home Nepro 1.8 (237 ml) QID 0900, 1300, 1700, 2100, sugar free ProStat 30 ml Skin Integrity/Comment: Vitor Thomas. Skin intact. Estimated Nutritional Goals BEE in Kcals: Using Current wt Calories/Kcals/Kg Based on current wt 76.8 kg with consideration of sepsis: Kcals Calculated 9580-5959 kcals/day (27-32 kcals/kg) to prevent wt gain with overwt status Protein: Using Current wt Protein g/kg: Based on current wt 76.8 kg with consideration of sepsis: Protein Calculated 92-115 gm/day (1.2-1.5 gm/kg) Fluid: ml Per MD/DO due to abnormal electrolytes Nutritional Problem 1. Problem Problem Excessive intake from enteral nutrition related to Etiology increased energy intake from calorically dense tube feeding formula as evidenced by Signs/Symptoms: current tube feeding meets 104 % of higher end of estimated calories needs. Malnutrition Alert Protein-Calorie Malnutrition N/A Is there a minimum of two criteria No selected? Query Text:Check all the applicable criteria. A minimum of two criteria are recommended for diagnosis of either severe or non-severe malnutrition. Malnutrition Related to Morbid Obesity Malnutrition related to morbid obesity No Intervention/Recommendation Recommendations by RD Decrease Calorie Intake Comments 1. Recommend decrease tube feeding Novosource Renal at goal rate of 50 ml/hr to provide 2400 kcals, 109 gm protein, and 860 ml free water per day. Monitor renal labs to prioritize protein needs. Expected Outcomes/Goals Expected Outcomes/Goals Provide pt with 100% of estimated nutritional needs. Physician Parameters for PEM Serum Albumin (g/dl) 3.1 - 3.4 (Mild)
[2017-06-10] MEDS: Atorvastatin Calcium 10 MG TAB GT SCH (21:09)
[2017-06-10] MEDS: Chlorhexidine Gluconate 0.12% 15mL Mouthwash MM SCH (21:14)
--- NOTE | 2017-06-10 23:16 | Progress Notes ---
DATE: 06/10/2017 PROBLEM LIST: 1. Acute on chronic respiratory failure. 2. Atelectasis/pneumonia. 3. Bilateral effusion. 4. Hepatic encephalopathy. 5. Electrolyte imbalance. SYMPTOMS: Nil. The patient is looking from side to side, no respiratory distress, etc. PHYSICAL EXAMINATION: VITAL SIGNS: The patient is afebrile, pulse is in 60s, blood pressure 106/52, saturation 100% . NECK: Veins not visualized. Good bilateral carotid upstroke. CHEST: Shows diminished air entry with occasional rhonchi. HEART: Regular. ABDOMEN: Soft, nontender. LABORATORY DATA: Platelet is 51,000. Electrolytes are improved. The patient's chest x-ray still shows basal haziness. ASSESSMENT: The patient clinically appears to be unchanged, bilateral effusions with hepatic encephalopathy. PLANS AND SUGGESTIONS: We will go ahead and continue current treatment, and we will treat with pseudomonas which showed in the sputum appropriately and go from there. JOB# [id number]
[2017-06-11] MEDS: Dextrose 5% 1,000 ML IV SCH ×3 (00:17→15:21)
[2017-06-11] MEDS: Lactulose 10 Gm/15 mL 30mL UDC GT SCH ×4 (00:20→18:01)
[2017-06-11] MEDS: Albuterol/Ipratropium Neb 3 ML AERS HHN SCH ×6 (04:03→22:51)
[2017-06-11 05:37] LABS: HEMATOCRIT 25.5 % (39.0-49.0); HEMOGLOBIN 8.7 gm/dL (13.2-17.3); MEAN CELL VOLUME 96.8 fl (80-99); MEAN CORPUSCULAR HEMOGLOBIN 32.9 pg (26.0-30.0); MEAN PLATELET VOLUME 9.3 fl; RED BLOOD COUNT 2.63 Mil/cmm (4.30-5.70); RED CELL DISTRIBUTION WIDTH 15.2 % (11.5-20.0); WHITE BLOOD COUNT 4.3 Th/cmm (4.8-10.8)
[2017-06-11 06:01] LABS: ANION GAP 6.8 (7.0-16.0); BUN - UREA NITROGEN 9 mg/dL (7-25); BUN/CREATININE RATIO 22.5; CALCIUM SERUM 8.5 mg/dL (8.6-10.3); CARBON DIOXIDE 24.8 mEq/L (21.0-31.0); CHLORIDE 110 mEq/L (98-107); CREATININE - SERUM 0.4 mg/dL (0.7-1.3); GLUCOSE 112 mg/dL (70-105); POTASSIUM SERUM 3.6 mEq/L (3.5-5.1); SODIUM SERUM 138 mEq/L (136-145)
[2017-06-11 06:06] LABS: PLATELET COUNT 30 Th/cmm (150-400)
[2017-06-11] MEDS: Levetiracetam 500 mg/5mL 5mL UDC GT SCH ×3 (06:37→20:06)
[2017-06-11] MEDS: Chlorhexidine Gluconate 0.12% 15mL Mouthwash MM SCH ×3 (06:38→20:04)
[2017-06-11] MEDS: Chlorhexidine Gluconate 0.12% 480mL Bottle MM SCH ×2 (06:39→09:02)
[2017-06-11] MEDS: Budesonide 0.5 Mg/2 mL Ud HHN SCH ×2 (07:09→19:46)
[2017-06-11 07:19] LABS: BAND NEUTROPHILE 2 % (0-10); EOSINOPHIL 7 % (0-5); METAMYELOCYTE 1 % (0-0); NEUTROPHILS 65 % (40-80); TOTAL CELLS COUNTED 100
[2017-06-11 07:20] LABS: PLATELET ESTIMATE DECREASED PLATELETS (NORMAL); PLATELET MORPHOLOGY PLATELET CLUMPS SEEN (NORMAL)
--- NOTE | 2017-06-11 08:27 | General Progress Note ---
Subjective - Review of Systems Events since last encounter: no distress Subjective: on vent, afebrile nad Objective - Results Result Diagrams: 06/11/17 05:00 06/11/17 05:00 Recent Labs: Laboratory Last Values WBC 4.3 Th/cmm (4.8-10.8) L 06/11/17 05:00 RBC 2.63 Mil/cmm (4.30-5.70) L 06/11/17 05:00 Hgb 8.7 gm/dL (13.2-17.3) L 06/11/17 05:00 Hct 25.5 % (39.0-49.0) L 06/11/17 05:00 MCV 96.8 fl (80-99) 06/11/17 05:00 MCH 32.9 pg (26.0-30.0) H 06/11/17 05:00 MCHC Differential 34.0 pg (28.0-36.0) 06/11/17 05:00 RDW 15.2 % (11.5-20.0) 06/11/17 05:00 Plt Count 30 Th/cmm (150-400) L 06/11/17 05:00 MPV 9.3 fl 06/11/17 05:00 Neutrophils % 64.8 % (40.0-80.0) 06/10/17 04:40 Band Neutrophils % 2 % (0-10) 06/11/17 05:00 Lymphocytes % 18.4 % (20.0-50.0) L 06/10/17 04:40 Monocytes % 12.3 % (2.0-10.0) H 06/10/17 04:40 Eosinophils % 4.2 % (0.0-5.0) 06/10/17 04:40 Basophils % 0.3 % (0.0-2.0) 06/10/17 04:40 Neutrophils (Manual) 65 % (40-80) 06/11/17 05:00 Lymphocytes 15 % (20-50) L 06/11/17 05:00 Monocytes 10 % (2-10) 06/11/17 05:00 Eosinophils 7 % (0-5) H 06/11/17 05:00 Metamyelocytes 1 % (0-0) H 06/11/17 05:00 Nucleated RBCs 1.0 % (0-0) H 06/08/17 04:59 Platelet Estimate DECREASED PLATELETS (NORMAL) 06/11/17 05:00 Platelet Morphology PLATELET CLUMPS SEEN (NORMAL) 06/11/17 05:00 Anisocytosis 1+ 06/08/17 04:59 RBC Morph Micro Appear NORMAL (NORMAL) 06/11/17 05:00 Specimen Source ARTERIAL 06/10/17 08:43 Sample Site Left Radial 06/10/17 08:43 pH 7.46 (7.35-7.45) H 06/10/17 08:43 pCO2 36.0 mmHg (35.0-45.0) 06/10/17 08:43 pO2 92.0 mmHg (80.0-100.0) 06/10/17 08:43 HCO3 26.4 mEq/L (20.0-26.0) H 06/10/17 08:43 Base Excess 1.9 mEq/L (-3.0-3.0) 06/10/17 08:43 O2 Saturation 98.0 % (92.0-100.0) 06/10/17 08:43 Jose L Test POSITIVE 06/10/17 08:43 Vent Rate 12 06/10/17 08:43 Inspired O2 40 06/10/17 08:43 Tidal Volume 500 06/10/17 08:43 PEEP 5 06/10/17 08:43 Pressure (ins/psv/peep) N/A 06/10/17 08:43 Critical Value SAURABH 06/10/17 08:43 Sodium 138 mEq/L (136-145) 06/11/17 05:00 Potassium 3.6 mEq/L (3.5-5.1) 06/11/17 05:00 Chloride 110 mEq/L (98-107) H 06/11/17 05:00 Carbon Dioxide 24.8 mEq/L (21.0-31.0) 06/11/17 05:00 Anion Gap 6.8 (7.0-16.0) L 06/11/17 05:00 BUN 9 mg/dL (7-25) 06/11/17 05:00 Creatinine 0.4 mg/dL (0.7-1.3) L 06/11/17 05:00 Est GFR ( Amer) > 60.0 ml/min (>90) 06/11/17 05:00 Est GFR (Non-Af Amer) > 60.0 ml/min 06/11/17 05:00 BUN/Creatinine Ratio 22.5 06/11/17 05:00 Glucose 112 mg/dL (70-105) H 06/11/17 05:00 Whole Bld Lactic Acid 1.51 mmol/L (0.60-1.99) 06/08/17 04:59 Calcium 8.5 mg/dL (8.6-10.3) L 06/11/17 05:00 Phosphorus 2.7 mg/dL (2.5-5.0) 06/08/17 04:59 Magnesium 2.2 mg/dL (1.9-2.7) 06/09/17 05:07 Iron 71 ug/dL (38-169) 06/08/17 04:59 TIBC 173 ug/dL (250-450) L 06/08/17 04:59 Iron Saturation 41 % (15-55) 06/08/17 04:59 Unsaturated IBC 102 ug/dL (111-343) L 06/08/17 04:59 Ferritin 303 ng/mL (30-400) 06/08/17 04:59 Total Bilirubin 0.8 mg/dL (0.3-1.0) 06/09/17 05:07 Direct Bilirubin 0.40 mg/dL (0.0-0.2) H 06/09/17 05:07 AST 34 U/L (13-39) 06/09/17 05:07 ALT 20 U/L (7-52) 06/09/17 05:07 Alkaline Phosphatase 171 U/L (34-104) H 06/09/17 05:07 Ammonia 116 umol/L (16-53) H 06/10/17 04:40 Troponin I 0.01 ng/mL (0.01-0.05) 06/07/17 13:28 B-Natriuretic Peptide 91.8 pg/mL (5.0-100.0) 06/07/17 13:28 Total Protein 6.8 gm/dL (6.0-8.3) 06/09/17 05:07 Albumin 2.3 gm/dL (4.2-5.5) L 06/09/17 05:07 Globulin 4.5 gm/dL 06/09/17 05:07 Albumin/Globulin Ratio 0.5 (1.0-1.8) L 06/09/17 05:07 Vitamin B12 >1999 pg/mL (211-946) H 06/08/17 04:59 Folic Acid >20.0 ng/mL (>3.0) 06/08/17 04:59 Urine Source RANDOM 06/07/17 13:25 Urine Color NISA 06/07/17 13:25 Urine Clarity CLOUDY (CLEAR) 06/07/17 13:25 Urine pH 5.5 (4.6 - 8.0) 06/07/17 13:25 Ur Specific [place] 1.020 (1.005-1.030) 06/07/17 13:25 Urine Protein >=300 mg/dL (NEGATIVE) 06/07/17 13:25 Urine Glucose (UA) NEGATIVE mg/dL (NEGATIVE) 06/07/17 13:25 Urine Ketones 15 mg/dL (NEGATIVE) H 06/07/17 13:25 Urine Blood LARGE (NEGATIVE) H 06/07/17 13:25 Urine Nitrate POSITIVE (NEGATIVE) H 06/07/17 13:25 Urine Bilirubin MODERATE (NEGATIVE) H 06/07/17 13:25 Urine Urobilinogen 2.0 E.U./dL (0.2 - 1.0) 06/07/17 13:25 Ur Leukocyte Esterase MODERATE (NEGATIVE) H 06/07/17 13:25 Urine RBC >100 /hpf (0-5) H 06/07/17 13:25 Urine WBC 2-5 /hpf (0-5) H 06/07/17 13:25 Ur Epithelial Cells OCCASIONAL /lpf (FEW) 06/07/17 13:25 Urine Bacteria FEW /hpf (NONE SEEN) 06/07/17 13:25 Ur Random Sodium 119 mmol/L 06/08/17 18:16 Stool Occult Blood NEGATIVE (NEGATIVE) 06/09/17 05:13 Vancomycin Trough 14.9 ug/mL (10-20) 06/09/17 09:30 Blood Type O POSITIVE 06/09/17 09:30 Antibody Screen NEGATIVE 06/09/17 09:30 - Physical Exam Vitals and I&O: Vital Signs Temp 98.3 F 06/11/17 04:00 Pulse 73 06/11/17 07:09 Resp 21 06/11/17 07:00 BP 108/54 06/11/17 07:00 Pulse Ox 98 06/11/17 07:09 Intake & Output 06/10/17 06/11/17 06/11/17 18:59 06:59 18:59 Intake Total 2260 800 600 Output Total 1450 1000 2400 Balance 810 -200 -1800 Weight (lbs) 81.828 kg 81.647 kg 82.554 kg Intake: Intake, IV Amount 1400 Cefepime 1 gm In Dextrose 150 5% 50 ml @ 100 mls/hr IV Q8H [facility] Rx#:[id number] Dextrose 5% 1,000 ml @ 1000 100 mls/hr IV .Q10H [facility] Rx#:[id number] Vancomycin HCl 1.25 gm In 250 Sodium Chloride 0.9% 250 ml @ 165 mls/hr IV Q12H [facility] Rx#:[id number] Tube Feeding 660 600 600 Other 200 200 Output: Urine 1450 1000 2400 Other: # Bowel Movements 3 2 Stool Characteristics Liquid Active Medications: Current Medications Albuterol/Ipratropium (Duoneb Neb) 3 ml HHN Q4HR [facility] Stop: 08/06/17 19:59 Last Admin: 06/11/17 07:09 Dose: 3 ml Albuterol/Ipratropium (Duoneb Neb) 3 ml HHN Q4HRT [facility] Stop: 08/07/17 18:59 Last Admin: 06/10/17 19:11 Dose: 3 ml Amlodipine Besylate (Norvasc) 5 mg GT Q12HR [place] Stop: 08/06/17 20:59 Last Admin: 06/10/17 21:08 Dose: 5 mg Artificial Tears (Artificial Tears Ophth Soln) 2 drop EACH EYE Q6H PRN PRN Reason: eye dryness Stop: 08/06/17 20:54 Last Admin: 06/10/17 11:10 Dose: 2 drop Atorvastatin Calcium (Lipitor) 10 mg GT HS [place] PRN Reason: Protocol Stop: 08/06/17 20:59 Last Admin: 06/10/17 21:09 Dose: 10 mg Bisacodyl (Dulcolax 10 Mg Supp) 10 mg RC DAILY PRN PRN Reason: Constipation Stop: 08/06/17 19:17 Budesonide (Pulmicort) 0.5 mg HHN BIDRT [facility] Stop: 10/12/17 18:59 Last Admin: 06/11/17 07:09 Dose: 0.5 mg Calcium/Vitamin D (Oscal W/Vitamin D) 1 tab GT DAILY [place] Stop: 08/07/17 08:59 Last Admin: 06/10/17 09:00 Dose: 1 tab Chlorhexidine Gluconate (Peridex) 15 ml MM Q12HR [place] Stop: 08/06/17 20:59 Last Admin: 06/11/17 06:39 Dose: Not Given Chlorhexidine Gluconate (Peridex) 15 ml MM 08,1999 [facility] Stop: 08/08/17 19:59 Last Admin: 06/11/17 06:38 Dose: 15 ml Clonazepam (Klonopin) 2 mg GT DAILY [facility] Stop: 08/07/17 08:59 Last Admin: 06/10/17 09:00 Dose: 2 mg Docusate Sodium (Colace) 100 mg GT BID [place] Stop: 08/06/17 20:59 Last Admin: 06/10/17 17:24 Dose: 100 mg Ferrous Sulfate (Iron) 300 mg GT BID [facility] Stop: 08/06/17 20:59 Last Admin: 06/10/17 17:25 Dose: 300 mg Folic Acid (Folate) 2.5 mg GT DAILY [facility] Stop: 08/07/17 08:59 Last Admin: 06/10/17 08:58 Dose: 2.5 mg Hydralazine HCl (Apresoline) 50 mg GT Q8HR [place] Stop: 08/06/17 20:59 Last Admin: 06/11/17 06:37 Dose: Not Given Cefepime HCl 1 gm/ Dextrose 50 mls @ 100 mls/hr IV Q8H [facility] Stop: 08/07/17 00:59 Last Admin: 06/11/17 00:18 Dose: 100 mls/hr Vancomycin HCl 1.25 gm/ Sodium (Chloride) 250 mls @ 165 mls/hr IV Q12H [facility] Stop: 08/07/17 09:59 Last Admin: 06/10/17 21:18 Dose: 165 mls/hr Dextrose (D5w) 1,000 mls @ 100 mls/hr IV .Q10H [facility] Stop: 08/07/17 09:37 Last Admin: 06/11/17 00:17 Dose: 100 mls/hr Lactobacillus Rhamnosus (Culturelle) 1 each PO DAILY [facility] Stop: 08/08/17 08:59 Last Admin: 06/10/17 09:00 Dose: 1 each Lactulose (Cephulac) 30 gm GT Q6HR [facility] Stop: 08/08/17 17:59 Last Admin: 06/11/17 06:37 Dose: 30 gm Levetiracetam (Keppra) 1,000 mg GT Q8HR [facility] Stop: 08/06/17 20:59 Last Admin: 06/11/17 06:37 Dose: 1,000 mg Magnesium Hydroxide (Milk Of Magnesia) 30 ml GT HS PRN PRN Reason: Constipation Stop: 08/06/17 19:17 Magnesium Oxide (Mag-Oxide) 400 mg GT DAILY [facility] Stop: 08/07/17 08:59 Last Admin: 06/10/17 09:00 Dose: 400 mg Metoprolol Tartrate (Lopressor) 100 mg GT Q12HR [facility] Stop: 08/06/17 20:59 Last Admin: 06/10/17 21:10 Dose: Not Given Miscellaneous (Vancomycin Iv Per Pharmacy) 1 ea PRN PRN PRN Reason: PROTOCOL Stop: 08/07/17 07:59 Miscellaneous (Probiotic Screen) 1 ea PRN PRN PRN Reason: PROTOCOL Stop: 08/07/17 10:42 Phytonadione (Mephyton) 10 mg GT DAILY [facility] Stop: 08/07/17 19:59 Last Admin: 06/10/17 09:00 Dose: 10 mg Potassium Chloride (Potassium Chloride Elixir) 20 meq GT BID [facility] Stop: 08/07/17 08:59 Last Admin: 06/10/17 17:24 Dose: 20 meq Propranolol HCl (Inderal) 20 mg GT TID [facility] Stop: 08/06/17 20:59 Last Admin: 06/10/17 21:19 Dose: 20 mg Pyridoxine HCl (Vitamin B6) 100 mg GT DAILY [facility] Stop: 08/07/17 08:59 Last Admin: 06/10/17 09:01 Dose: 100 mg Rifaximin (Xifaxan) 500 mg PO BID [facility] Stop: 08/07/17 16:59 Last Admin: 06/10/17 17:29 Dose: 500 mg Sodium Phosphate (Fleet Enema) 135 ml RC Q48H PRN PRN Reason: IF DULCOLAX IS INEFFECTIVE Stop: 08/06/17 19:17 Thiamine HCl (Vitamin B1) 100 mg GT DAILY [facility] Stop: 08/07/17 08:59 Last Admin: 06/10/17 09:00 Dose: 100 mg Valproate Sodium (Depakene) 500 mg GT TID [facility] PRN Reason: Protocol Stop: 08/06/17 20:59 Last Admin: 06/10/17 21:19 Dose: 500 mg General: Alert, No acute distress HEENT: Atraumatic, PERRLA, EOMI, Mucous membr. moist/pink Neck: Supple, +2 carotid pulse wo bruit Cardiovascular: Regular rate, Normal S1, Normal S2 Lungs: Clear to auscultation Abdomen: Bowel sounds, Soft Extremities: no Edema Neurological: Sensation intact Skin: no Rash - Procedures Procedures: Procedures Procedure Code Date RESPIRATORY VENTILATION, 24-96 [facility] HOURS [id number] 06/07/17 Assessment/Plan - Problem List Patient Problems: All Active Problems ELEVATED NA+, AND BUN LEVELS (Acute) - Assessment Assessment: s/p respiratory failure pnumonia s/p trch and peg trmors h/o alcoholism h/o sizures - Plan Plan: iv antibiotics vent support continue current plan of care Nutritional Asmnt/Malnutr-PDOC - Dietary Evaluation Malnutrition Findings (Please click <Entered> for more info): Nutritional Asmnt/Malnutrition Start: 06/09/17 11: 00 Text: Status: Complete Freq: Document 06/09/17 13:09 [facility] (Rec: 06/09/17 13:27 [facility] [id number]) Nutritional Asmnt/Malnutrition Patient General Information Nutritional Screening High Risk Screening Diagnosis Sepsis, UTI, right and left lower lobe infiltrate, pneumonia Pertinent Medical Hx/Surgical Hx Alcohol problem, liver disease , cirrhosis of the liver, hepatic comas, seizures, trachestomy, PEG, asthma, COPD Subjective Information Pt is a 52-year-old male from [facility] admitted with chief complaint of shortness of breath and falling oxygen saturation. Pt has tracheostomy to ventilator. Pt was unable to provide nutritional hx. Pt appears well nourished with no signs of muscle or fat depletion. Order to resume tube feeding; bag of Novosource Renal at bedside not yet started. Abdomen Ultrasound 06/09 notes some abdominal ascites. Current Diet Order/ Nutrition Support Novosource Renal at 55 ml/hr = 2640kcals, 120gm protein, 946ml free water Patient / S.O Can't verbalize diet edu Pertinent Medications Oscal with Vitamin D, Cefepime , D5w, Iron, Folate, Culturelle, MagOxide, Mephyton , KCl Elixir, Vitamin B6, Vitamin B1, Depakene, Vancomycin Pertinent Labs (06/09) Na 148H (improving), K 3L, Alkaline Phosphatase 171H, Ammonia 64H, Albumin 3.3L Nutritional Hx/Data Height 1.68 m Height (Calculated Centimeters) 167.6 Current Weight (lbs) 76.657 kg Weight (Calculated Kilograms) 76.7 Weight (Calculated Grams) 19391.1 Usual body Weight (lbs) 168 % Usual Body Weight 100 [place] Body Weight 142 % [place] Body Weight 119 Recent Weight Change No Weight Status Overweight GI Symptoms GI Symptoms Diarrhea Difficult in: Chewing Swallowing Food Allergies No Usual diet at home Nepro 1.8 (237 ml) QID 0900, 1300, 1700, 2100, sugar free ProStat 30 ml Skin Integrity/Comment: Vitor Thomas. Skin intact. Estimated Nutritional Goals BEE in Kcals: Using Current wt Calories/Kcals/Kg Based on current wt 76.8 kg with consideration of sepsis: Kcals Calculated 4509-6274 kcals/day (27-32 kcals/kg) to prevent wt gain with overwt status Protein: Using Current wt Protein g/kg: Based on current wt 76.8 kg with consideration of sepsis: Protein Calculated 92-115 gm/day (1.2-1.5 gm/kg) Fluid: ml Per MD/DO due to abnormal electrolytes Nutritional Problem 1. Problem Problem Excessive intake from enteral nutrition related to Etiology increased energy intake from calorically dense tube feeding formula as evidenced by Signs/Symptoms: current tube feeding meets 104 % of higher end of estimated calories needs. Malnutrition Alert Protein-Calorie Malnutrition N/A Is there a minimum of two criteria No selected? Query Text:Check all the applicable criteria. A minimum of two criteria are recommended for diagnosis of either severe or non-severe malnutrition. Malnutrition Related to Morbid Obesity Malnutrition related to morbid obesity No Intervention/Recommendation Recommendations by RD Decrease Calorie Intake Comments 1. Recommend decrease tube feeding Novosource Renal at goal rate of 50 ml/hr to provide 2400 kcals, 109 gm protein, and 860 ml free water per day. Monitor renal labs to prioritize protein needs. Expected Outcomes/Goals Expected Outcomes/Goals Provide pt with 100% of estimated nutritional needs. Physician Parameters for PEM Serum Albumin (g/dl) 3.1 - 3.4 (Mild)
[2017-06-11] MEDS: Ferrous Sulfate 300 MG/5 ML UDC GT SCH ×2 (08:42→16:10)
[2017-06-11] MEDS: Potassium Chloride Elixir 20 mEq /15 mL UDC GT SCH ×2 (08:42→16:09)
[2017-06-11] MEDS: Docusate Sodium 100 mg/10 mL UD GT SCH ×2 (08:42→09:03)
[2017-06-11] MEDS: Lactobacillus Rhamnosus 10 Billion CFU Capsule PO SCH (08:43)
[2017-06-11] MEDS: Calcium Carb/Vit D 500 mg/200 U Tab GT SCH (08:43)
--- NOTE | 2017-06-11 09:50 | Diagnostic Imaging Report ---
Portable chest x-ray HISTORY: Shortness of breath Compared with prior exam of June 10, 2017, the heart appears enlarged. There is poor visualization of the left hemidiaphragm. A small left pleural effusion cannot be excluded. IMPRESSION: 1. Suggestion of increased density in the left lower hemithorax. A small effusion cannot be excluded.
--- NOTE | 2017-06-11 14:24 | General Progress Note ---
Subjective - Review of Systems Service Date: 06/11/17 Subjective: awake, on vent Objective - Results Result Diagrams: 06/11/17 05:00 06/11/17 05:00 Recent Labs: Laboratory Last Values WBC 4.3 Th/cmm (4.8-10.8) L 06/11/17 05:00 RBC 2.63 Mil/cmm (4.30-5.70) L 06/11/17 05:00 Hgb 8.7 gm/dL (13.2-17.3) L 06/11/17 05:00 Hct 25.5 % (39.0-49.0) L 06/11/17 05:00 MCV 96.8 fl (80-99) 06/11/17 05:00 MCH 32.9 pg (26.0-30.0) H 06/11/17 05:00 MCHC Differential 34.0 pg (28.0-36.0) 06/11/17 05:00 RDW 15.2 % (11.5-20.0) 06/11/17 05:00 Plt Count 30 Th/cmm (150-400) L 06/11/17 05:00 MPV 9.3 fl 06/11/17 05:00 Neutrophils % 64.8 % (40.0-80.0) 06/10/17 04:40 Band Neutrophils % 2 % (0-10) 06/11/17 05:00 Lymphocytes % 18.4 % (20.0-50.0) L 06/10/17 04:40 Monocytes % 12.3 % (2.0-10.0) H 06/10/17 04:40 Eosinophils % 4.2 % (0.0-5.0) 06/10/17 04:40 Basophils % 0.3 % (0.0-2.0) 06/10/17 04:40 Neutrophils (Manual) 65 % (40-80) 06/11/17 05:00 Lymphocytes 15 % (20-50) L 06/11/17 05:00 Monocytes 10 % (2-10) 06/11/17 05:00 Eosinophils 7 % (0-5) H 06/11/17 05:00 Metamyelocytes 1 % (0-0) H 06/11/17 05:00 Nucleated RBCs 1.0 % (0-0) H 06/08/17 04:59 Platelet Estimate DECREASED PLATELETS (NORMAL) 06/11/17 05:00 Platelet Morphology PLATELET CLUMPS SEEN (NORMAL) 06/11/17 05:00 Anisocytosis 1+ 06/08/17 04:59 RBC Morph Micro Appear NORMAL (NORMAL) 06/11/17 05:00 Specimen Source ARTERIAL 06/10/17 08:43 Sample Site Left Radial 06/10/17 08:43 pH 7.46 (7.35-7.45) H 06/10/17 08:43 pCO2 36.0 mmHg (35.0-45.0) 06/10/17 08:43 pO2 92.0 mmHg (80.0-100.0) 06/10/17 08:43 HCO3 26.4 mEq/L (20.0-26.0) H 06/10/17 08:43 Base Excess 1.9 mEq/L (-3.0-3.0) 06/10/17 08:43 O2 Saturation 98.0 % (92.0-100.0) 06/10/17 08:43 Jose L Test POSITIVE 06/10/17 08:43 Vent Rate 12 06/10/17 08:43 Inspired O2 40 06/10/17 08:43 Tidal Volume 500 06/10/17 08:43 PEEP 5 06/10/17 08:43 Pressure (ins/psv/peep) N/A 06/10/17 08:43 Critical Value SAURABH 06/10/17 08:43 Sodium 138 mEq/L (136-145) 06/11/17 05:00 Potassium 3.6 mEq/L (3.5-5.1) 06/11/17 05:00 Chloride 110 mEq/L (98-107) H 06/11/17 05:00 Carbon Dioxide 24.8 mEq/L (21.0-31.0) 06/11/17 05:00 Anion Gap 6.8 (7.0-16.0) L 06/11/17 05:00 BUN 9 mg/dL (7-25) 06/11/17 05:00 Creatinine 0.4 mg/dL (0.7-1.3) L 06/11/17 05:00 Est GFR ( Amer) > 60.0 ml/min (>90) 06/11/17 05:00 Est GFR (Non-Af Amer) > 60.0 ml/min 06/11/17 05:00 BUN/Creatinine Ratio 22.5 06/11/17 05:00 Glucose 112 mg/dL (70-105) H 06/11/17 05:00 Plasma/Ser Osmolality 313 mOsmol/kg (275-295) H 06/09/17 05:07 Whole Bld Lactic Acid 1.51 mmol/L (0.60-1.99) 06/08/17 04:59 Calcium 8.5 mg/dL (8.6-10.3) L 06/11/17 05:00 Phosphorus 2.7 mg/dL (2.5-5.0) 06/08/17 04:59 Magnesium 2.2 mg/dL (1.9-2.7) 06/09/17 05:07 Iron 71 ug/dL (38-169) 06/08/17 04:59 TIBC 173 ug/dL (250-450) L 06/08/17 04:59 Iron Saturation 41 % (15-55) 06/08/17 04:59 Unsaturated IBC 102 ug/dL (111-343) L 06/08/17 04:59 Ferritin 303 ng/mL (30-400) 06/08/17 04:59 Total Bilirubin 0.8 mg/dL (0.3-1.0) 06/09/17 05:07 Direct Bilirubin 0.40 mg/dL (0.0-0.2) H 06/09/17 05:07 AST 34 U/L (13-39) 06/09/17 05:07 ALT 20 U/L (7-52) 06/09/17 05:07 Alkaline Phosphatase 171 U/L (34-104) H 06/09/17 05:07 Ammonia 116 umol/L (16-53) H 06/10/17 04:40 Troponin I 0.01 ng/mL (0.01-0.05) 06/07/17 13:28 B-Natriuretic Peptide 91.8 pg/mL (5.0-100.0) 06/07/17 13:28 Total Protein 6.8 gm/dL (6.0-8.3) 06/09/17 05:07 Albumin 2.3 gm/dL (4.2-5.5) L 06/09/17 05:07 Globulin 4.5 gm/dL 06/09/17 05:07 Albumin/Globulin Ratio 0.5 (1.0-1.8) L 06/09/17 05:07 Vitamin B12 >1999 pg/mL (211-946) H 06/08/17 04:59 Folic Acid >20.0 ng/mL (>3.0) 06/08/17 04:59 Urine Source RANDOM 06/07/17 13:25 Urine Color NISA 06/07/17 13:25 Urine Clarity CLOUDY (CLEAR) 06/07/17 13:25 Urine pH 5.5 (4.6 - 8.0) 06/07/17 13:25 Ur Specific [place] 1.020 (1.005-1.030) 06/07/17 13:25 Urine Protein >=300 mg/dL (NEGATIVE) 06/07/17 13:25 Urine Glucose (UA) NEGATIVE mg/dL (NEGATIVE) 06/07/17 13:25 Urine Ketones 15 mg/dL (NEGATIVE) H 06/07/17 13:25 Urine Blood LARGE (NEGATIVE) H 06/07/17 13:25 Urine Nitrate POSITIVE (NEGATIVE) H 06/07/17 13:25 Urine Bilirubin MODERATE (NEGATIVE) H 06/07/17 13:25 Urine Urobilinogen 2.0 E.U./dL (0.2 - 1.0) 06/07/17 13:25 Ur Leukocyte Esterase MODERATE (NEGATIVE) H 06/07/17 13:25 Urine RBC >100 /hpf (0-5) H 06/07/17 13:25 Urine WBC 2-5 /hpf (0-5) H 06/07/17 13:25 Ur Epithelial Cells OCCASIONAL /lpf (FEW) 06/07/17 13:25 Urine Bacteria FEW /hpf (NONE SEEN) 06/07/17 13:25 Urine Osmolality 776 mOsmol/kg 06/09/17 05:53 Ur Random Sodium 119 mmol/L 06/08/17 18:16 Stool Occult Blood NEGATIVE (NEGATIVE) 06/09/17 05:13 Vancomycin Trough 14.9 ug/mL (10-20) 06/09/17 09:30 Blood Type O POSITIVE 06/09/17 09:30 Antibody Screen NEGATIVE 06/09/17 09:30 - Physical Exam Vitals and I&O: Vital Signs Temp 97.4 F 06/11/17 12:00 Pulse 68 06/11/17 13:24 Resp 18 06/11/17 13:00 BP 91/66 06/11/17 13:20 Pulse Ox 100 06/11/17 13:24 Intake & Output 06/10/17 06/11/17 06/11/17 18:59 06:59 18:59 Intake Total 2260 1100 1650 Output Total 1450 1000 2400 Balance 810 100 -750 Weight (lbs) 81.828 kg 81.647 kg 82.554 kg Intake: Intake, IV Amount [phone] Cefepime 1 gm In Dextrose 150 50 50 5% 50 ml @ 100 mls/hr IV Q8H [facility] Rx#:[id number] Dextrose 5% 1,000 ml @ 1000 1000 100 mls/hr IV .Q10H [facility] Rx#:[id number] Vancomycin HCl 1.25 gm In 250 250 Sodium Chloride 0.9% 250 ml @ 165 mls/hr IV Q12H [facility] Rx#:[id number] Tube Feeding 660 600 600 Other 200 200 Output: Urine 1450 1000 2400 Other: # Bowel Movements 3 2 Stool Characteristics Liquid Liquid Brown Active Medications: Current Medications Albuterol/Ipratropium (Duoneb Neb) 3 ml HHN Q4HR [facility] Stop: 08/06/17 19:59 Last Admin: 06/11/17 13:24 Dose: 3 ml Albuterol/Ipratropium (Duoneb Neb) 3 ml HHN Q4HRT [facility] Stop: 08/07/17 18:59 Last Admin: 06/10/17 19:11 Dose: 3 ml Amlodipine Besylate (Norvasc) 5 mg GT Q12HR [facility] Stop: 08/06/17 20:59 Last Admin: 06/11/17 09:02 Dose: Not Given Artificial Tears (Artificial Tears Ophth Soln) 2 drop EACH EYE Q6H PRN PRN Reason: eye dryness Stop: 08/06/17 20:54 Last Admin: 06/10/17 11:10 Dose: 2 drop Atorvastatin Calcium (Lipitor) 10 mg GT HS [place] PRN Reason: Protocol Stop: 08/06/17 20:59 Last Admin: 06/10/17 21:09 Dose: 10 mg Bisacodyl (Dulcolax 10 Mg Supp) 10 mg RC DAILY PRN PRN Reason: Constipation Stop: 08/06/17 19:17 Budesonide (Pulmicort) 0.5 mg HHN BIDRT [facility] Stop: 08/07/17 18:59 Last Admin: 06/11/17 07:09 Dose: 0.5 mg Calcium/Vitamin D (Oscal W/Vitamin D) 1 tab GT DAILY [facility] Stop: 08/07/17 08:59 Last Admin: 06/11/17 08:43 Dose: 1 tab Chlorhexidine Gluconate (Peridex) 15 ml MM 0800,1999 [facility] Stop: 08/08/17 19:59 Last Admin: 06/11/17 08:47 Dose: 15 ml Clonazepam (Klonopin) 2 mg GT DAILY [facility] Stop: 08/07/17 08:59 Last Admin: 06/11/17 08:43 Dose: 2 mg Ferrous Sulfate (Iron) 300 mg GT BID [facility] Stop: 08/06/17 20:59 Last Admin: 06/11/17 08:42 Dose: 300 mg Folic Acid (Folate) 2.5 mg GT DAILY [facility] Stop: 08/07/17 08:59 Last Admin: 06/11/17 08:43 Dose: 2.5 mg Hydralazine HCl (Apresoline) 50 mg GT Q8HR [facility] Stop: 08/06/17 20:59 Last Admin: 06/11/17 13:19 Dose: Not Given Cefepime HCl 1 gm/ Dextrose 50 mls @ 100 mls/hr IV Q8H [facility] Stop: 08/07/17 00:59 Last Infusion: 06/11/17 09:40 Dose: Infused Vancomycin HCl 1.25 gm/ Sodium (Chloride) 250 mls @ 165 mls/hr IV Q12H [facility] Stop: 08/07/17 09:59 Last Admin: 06/11/17 11:12 Dose: 165 mls/hr Dextrose (D5w) 1,000 mls @ 100 mls/hr IV .Q10H [facility] Stop: 08/07/17 09:37 Last Admin: 06/11/17 11:12 Dose: 100 mls/hr Lactobacillus Rhamnosus (Culturelle) 1 each PO DAILY [facility] Stop: 08/08/17 08:59 Last Admin: 06/11/17 08:43 Dose: 1 each Lactulose (Cephulac) 30 gm GT Q6HR [facility] Stop: 08/08/17 17:59 Last Admin: 06/11/17 13:18 Dose: 30 gm Levetiracetam (Keppra) 1,000 mg GT Q8HR [facility] Stop: 08/06/17 20:59 Last Admin: 06/11/17 13:20 Dose: 1,000 mg Magnesium Hydroxide (Milk Of Magnesia) 30 ml GT HS PRN PRN Reason: Constipation Stop: 08/06/17 19:17 Magnesium Oxide (Mag-Oxide) 400 mg GT DAILY [facility] Stop: 08/07/17 08:59 Last Admin: 06/11/17 08:44 Dose: 400 mg Metoprolol Tartrate (Lopressor) 100 mg GT Q12HR [facility] Stop: 08/06/17 20:59 Last Admin: 06/11/17 09:02 Dose: Not Given Miscellaneous (Vancomycin Iv Per Pharmacy) 1 ea PRN PRN PRN Reason: PROTOCOL Stop: 08/07/17 07:59 Miscellaneous (Probiotic Screen) 1 ea PRN PRN PRN Reason: PROTOCOL Stop: 08/07/17 10:42 Phytonadione (Mephyton) 10 mg GT DAILY [facility] Stop: 08/07/17 19:59 Last Admin: 06/11/17 08:41 Dose: 10 mg Potassium Chloride (Potassium Chloride Elixir) 20 meq GT BID [facility] Stop: 08/07/17 08:59 Last Admin: 06/11/17 08:42 Dose: 20 meq Propranolol HCl (Inderal) 20 mg GT TID [facility] Stop: 08/06/17 20:59 Last Admin: 06/11/17 13:20 Dose: Not Given Pyridoxine HCl (Vitamin B6) 100 mg GT DAILY [facility] Stop: 08/07/17 08:59 Last Admin: 06/11/17 08:44 Dose: 100 mg Rifaximin (Xifaxan) 500 mg PO BID [facility] Stop: 08/07/17 16:59 Last Admin: 06/11/17 08:41 Dose: 500 mg Sodium Phosphate (Fleet Enema) 135 ml RC Q48H PRN PRN Reason: IF DULCOLAX IS INEFFECTIVE Stop: 08/06/17 19:17 Thiamine HCl (Vitamin B1) 100 mg GT DAILY [facility] Stop: 08/07/17 08:59 Last Admin: 06/11/17 08:48 Dose: 100 mg Valproate Sodium (Depakene) 500 mg GT TID [facility] PRN Reason: Protocol Stop: 08/06/17 20:59 Last Admin: 06/11/17 08:42 Dose: 500 mg General: Alert, No acute distress HEENT: Atraumatic, PERRLA, EOMI, Mucous membr. moist/pink Neck: Supple, +2 carotid pulse wo bruit Cardiovascular: Regular rate, Normal S1, Normal S2 Lungs: Clear to auscultation Abdomen: Bowel sounds, Soft Extremities: no Edema Neurological: Sensation intact Skin: no Rash Psych/Mental Status: Mood NL - Procedures Procedures: Procedures Procedure Code Date RESPIRATORY VENTILATION, 24-96 CONSECUTIVE HOURS [id number] 06/07/17 Assessment/Plan - Problem List Patient Problems: All Active Problems ELEVATED NA+, AND BUN LEVELS (Acute) - Assessment Assessment: Hypernatremia RFVD Sepsis etio? CLD Thrombocytopenia Anemia of CD Hypokalemia - Plan Plan: Lab - Result Diagrams 06/09/17 09:30 06/09/17 05:07 Current Medications Albuterol/Ipratropium (Duoneb Neb) 3 ml HHN Q4HR [facility] Stop: 08/06/17 19:59 Last Admin: 06/09/17 11:08 Dose: 3 ml Albuterol/Ipratropium (Duoneb Neb) 3 ml HHN Q4HRT [facility] Stop: 08/07/17 18:59 Amlodipine Besylate (Norvasc) 5 mg GT Q12HR [facility] Stop: 08/06/17 20:59 Last Admin: 06/09/17 10:05 Dose: 5 mg Artificial Tears (Artificial Tears Ophth Soln) 2 drop EACH EYE Q6H PRN PRN Reason: eye dryness Stop: 08/06/17 20:54 Atorvastatin Calcium (Lipitor) 10 mg GT HS [facility] PRN Reason: Protocol Stop: 08/06/17 20:59 Last Admin: 06/08/17 21:32 Dose: 10 mg Bisacodyl (Dulcolax 10 Mg Supp) 10 mg RC DAILY PRN PRN Reason: Constipation Stop: 08/06/17 19:17 Budesonide (Pulmicort) 0.5 mg HHN BIDRT [facility] Stop: 08/07/17 18:59 Last Admin: 06/08/17 19:10 Dose: 0.5 mg Calcium/Vitamin D (Oscal W/Vitamin D) 1 tab GT DAILY [facility] Stop: 08/07/17 08:59 Last Admin: 06/09/17 10:05 Dose: 1 tab Chlorhexidine Gluconate (Peridex) 15 ml MM Q12HR [facility] Stop: 08/06/17 20:59 Last Admin: 06/09/17 09:00 Dose: 15 ml Clonazepam (Klonopin) 2 mg GT DAILY [facility] Stop: 08/07/17 08:59 Last Admin: 06/09/17 10:05 Dose: 2 mg Docusate Sodium (Colace) 100 mg GT BID [facility] Stop: 08/06/17 20:59 Last Admin: 06/09/17 09:00 Dose: Not Given Ferrous Sulfate (Iron) 300 mg GT BID [facility] Stop: 08/06/17 20:59 Last Admin: 06/09/17 10:03 Dose: 300 mg Folic Acid (Folate) 2.5 mg GT DAILY [facility] Stop: 08/07/17 08:59 Last Admin: 06/09/17 10:05 Dose: 2.5 mg Hydralazine HCl (Apresoline) 50 mg GT Q8HR [facility] Stop: 08/06/17 20:59 Last Admin: 06/09/17 12:56 Dose: 50 mg Cefepime HCl 1 gm/ Dextrose 50 mls @ 100 mls/hr IV Q8H [facility] Stop: 08/07/17 00:59 Last Infusion: 06/09/17 09:30 Dose: Infused Vancomycin HCl 1.25 gm/ Sodium (Chloride) 250 mls @ 165 mls/hr IV Q12H [facility] Stop: 08/07/17 09:59 Last Infusion: 06/09/17 11:31 Dose: Infused Dextrose (D5w) 1,000 mls @ 150 mls/hr IV .Q6H40M [facility] Stop: 08/07/17 09:37 Last Admin: 06/09/17 07:33 Dose: 150 mls/hr Lactobacillus Rhamnosus (Culturelle) 1 each PO DAILY [facility] Stop: 08/08/17 08:59 Last Admin: 06/09/17 10:04 Dose: 1 each Lactulose (Cephulac) 30 gm GT Q8HR [facility] Stop: 08/06/17 20:59 Last Admin: 06/09/17 12:56 Dose: Not Given Levetiracetam (Keppra) 1,000 mg GT Q8HR [facility] Stop: 08/06/17 20:59 Last Admin: 06/09/17 12:56 Dose: 1,000 mg Magnesium Hydroxide (Milk Of Magnesia) 30 ml GT HS PRN PRN Reason: Constipation Stop: 08/06/17 19:17 Magnesium Oxide (Mag-Oxide) 400 mg GT DAILY [facility] Stop: 08/07/17 08:59 Last Admin: 06/09/17 10:04 Dose: 400 mg Metoprolol Tartrate (Lopressor) 100 mg GT Q12HR [facility] Stop: 08/06/17 20:59 Last Admin: 06/09/17 10:04 Dose: 100 mg Miscellaneous (Vancomycin Iv Per Pharmacy) 1 ea PRN PRN PRN Reason: PROTOCOL Stop: 08/07/17 07:59 Miscellaneous (Probiotic Screen) 1 ea PRN PRN PRN Reason: PROTOCOL Stop: 08/07/17 10:42 Phytonadione (Mephyton) 10 mg GT DAILY [facility] Stop: 08/07/17 19:59 Last Admin: 06/09/17 10:06 Dose: 10 mg Potassium Chloride (Potassium Chloride Elixir) 20 meq GT BID [facility] Stop: 08/07/17 08:59 Last Admin: 06/09/17 11:30 Dose: 20 meq Propranolol HCl (Inderal) 20 mg GT TID [facility] Stop: 08/06/17 20:59 Last Admin: 06/09/17 10:03 Dose: 20 mg Pyridoxine HCl (Vitamin B6) 100 mg GT DAILY [facility] Stop: 08/07/17 08:59 Last Admin: 06/09/17 10:05 Dose: 100 mg Rifaximin (Xifaxan) 500 mg PO BID [facility] Stop: 08/07/17 16:59 Last Admin: 06/09/17 10:06 Dose: 500 mg Sodium Phosphate (Fleet Enema) 135 ml RC Q48H PRN PRN Reason: IF DULCOLAX IS INEFFECTIVE Stop: 08/06/17 19:17 Thiamine HCl (Vitamin B1) 100 mg GT DAILY [facility] Stop: 08/07/17 08:59 Last Admin: 06/09/17 10:05 Dose: 100 mg Valproate Sodium (Depakene) 500 mg GT TID [facility] PRN Reason: Protocol Stop: 08/06/17 20:59 Last Admin: 06/09/17 10:03 Dose: 500 mg CXR: CM, B/L ATx electrolytes has improved continue D5W but decrease rate F/U electrolytes Lab - Result Diagrams 06/10/17 04:40 06/10/17 04:40 Nutritional Asmnt/Malnutr-PDOC - Dietary Evaluation Malnutrition Findings (Please click <Entered> for more info): Nutritional Asmnt/Malnutrition Start: 06/09/17 11: 00 Text: Status: Complete Freq: Document 06/09/17 13:09 [facility] (Rec: 06/09/17 13:27 [facility] [id number]) Nutritional Asmnt/Malnutrition Patient General Information Nutritional Screening High Risk Screening Diagnosis Sepsis, UTI, right and left lower lobe infiltrate, pneumonia Pertinent Medical Hx/Surgical Hx Alcohol problem, liver disease , cirrhosis of the liver, hepatic comas, seizures, trachestomy, PEG, asthma, COPD Subjective Information Pt is a 52-year-old male from [facility] admitted with chief complaint of shortness of breath and falling oxygen saturation. Pt has tracheostomy to ventilator. Pt was unable to provide nutritional hx. Pt appears well nourished with no signs of muscle or fat depletion. Order to resume tube feeding; bag of Novosource Renal at bedside not yet started. Abdomen Ultrasound 06/09 notes some abdominal ascites. Current Diet Order/ Nutrition Support Novosource Renal at 55 ml/hr = 2640kcals, 120gm protein, 946ml free water Patient / S.O Can't verbalize diet edu Pertinent Medications Oscal with Vitamin D, Cefepime , D5w, Iron, Folate, Culturelle, MagOxide, Mephyton , KCl Elixir, Vitamin B6, Vitamin B1, Depakene, Vancomycin Pertinent Labs (06/09) Na 148H (improving), K 3L, Alkaline Phosphatase 171H, Ammonia 64H, Albumin 3.3L Nutritional Hx/Data Height 1.68 m Height (Calculated Centimeters) 167.6 Current Weight (lbs) 76.657 kg Weight (Calculated Kilograms) 76.7 Weight (Calculated Grams) 81853.1 Usual body Weight (lbs) 168 % Usual Body Weight 100 [place] Body Weight 142 % Harman Body Weight 119 Recent Weight Change No Weight Status Overweight GI Symptoms GI Symptoms Diarrhea Difficult in: Chewing Swallowing Food Allergies No Usual diet at home Nepro 1.8 (237 ml) QID 0900, 1300, 1700, 2100, sugar free ProStat 30 ml Skin Integrity/Comment: Vitor 12. Skin intact. Estimated Nutritional Goals BEE in Kcals: Using Current wt Calories/Kcals/Kg Based on current wt 76.8 kg with consideration of sepsis: Kcals Calculated 9914-2730 kcals/day (27-32 kcals/kg) to prevent wt gain with overwt status Protein: Using Current wt Protein g/kg: Based on current wt 76.8 kg with consideration of sepsis: Protein Calculated 92-115 gm/day (1.2-1.5 gm/kg) Fluid: ml Per MD/DO due to abnormal electrolytes Nutritional Problem 1. Problem Problem Excessive intake from enteral nutrition related to Etiology increased energy intake from calorically dense tube feeding formula as evidenced by Signs/Symptoms: current tube feeding meets 104 % of higher end of estimated calories needs. Malnutrition Alert Protein-Calorie Malnutrition N/A Is there a minimum of two criteria No selected? Query Text:Check all the applicable criteria. A minimum of two criteria are recommended for diagnosis of either severe or non-severe malnutrition. Malnutrition Related to Morbid Obesity Malnutrition related to morbid obesity No Intervention/Recommendation Recommendations by RD Decrease Calorie Intake Comments 1. Recommend decrease tube feeding Novosource Renal at goal rate of 50 ml/hr to provide 2400 kcals, 109 gm protein, and 860 ml free water per day. Monitor renal labs to prioritize protein needs. Expected Outcomes/Goals Expected Outcomes/Goals Provide pt with 100% of estimated nutritional needs. Physician Parameters for PEM Serum Albumin (g/dl) 3.1 - 3.4 (Mild)
[2017-06-11] MEDS: Atorvastatin Calcium 10 MG TAB GT SCH (20:06)
[2017-06-12] MEDS: Polyvinyl Alcohol Ophth Soln 15 mL Bottle EACH EYE PRN (01:03)
--- NOTE | 2017-06-12 02:02 | Progress Notes ---
DATE: 06/11/2017 PULMONARY PROGRESS NOTE PROBLEM LIST: 1. Acute on chronic respiratory failure. 2. Hepatic encephalopathy. 3. Electrolyte imbalance. 4. Pneumonia with effusion. SYMPTOMS: Nil. Lot of bronchorrhea, but he is more awake and alert. No respiratory distress. PHYSICAL EXAMINATION: VITAL SIGNS: Temperature is 99, heart rate is in 60s, blood pressure is 90, and saturation 99%. ENT: Shows no new acute changes. CHEST: Shows diminished air entry with occasional rhonchi. HEART: Regular. ABDOMEN: Soft and nontender. LABORATORY DATA: White count is 4.3 and hemoglobin is 8.7. ASSESSMENT: The patient is clinically stabilizing electrolytes franklin with bilateral basal infiltrate. Culture noted. Antibiotic per ID. We will recheck other lab tomorrow and go from there. JOB# [id number]
[2017-06-12] MEDS: Lactulose 10 Gm/15 mL 30mL UDC GT SCH ×5 (02:18→23:24)
[2017-06-12] MEDS: Albuterol/Ipratropium Neb 3 ML AERS HHN SCH ×6 (03:44→22:15)
[2017-06-12] MEDS: Levetiracetam 500 mg/5mL 5mL UDC GT SCH ×3 (05:33→20:59)
[2017-06-12] MEDS: Dextrose 5% 1,000 ML IV SCH (06:45)
[2017-06-12 07:38] LABS: HEMATOCRIT 24.1 % (39.0-49.0); HEMOGLOBIN 8.2 gm/dL (13.2-17.3); MEAN CELL VOLUME 96.2 fl (80-99); MEAN CORPUSCULAR HEMOGLOBIN 32.7 pg (26.0-30.0); MEAN PLATELET VOLUME 9.8 fl; RED CELL DISTRIBUTION WIDTH 15.5 % (11.5-20.0)
[2017-06-12 07:40] LABS: PLATELET COUNT 48 Th/cmm (150-400); WHITE BLOOD COUNT 3.6 Th/cmm (4.8-10.8)
[2017-06-12] MEDS: Chlorhexidine Gluconate 0.12% 15mL Mouthwash MM SCH ×2 (07:58→21:07)
--- NOTE | 2017-06-12 07:58 | General Progress Note ---
Subjective - Review of Systems Events since last encounter: awake ,alert no distress Subjective: on vent, afebrile nad Objective - Results Result Diagrams: 06/12/17 07:15 06/11/17 05:00 Recent Labs: Laboratory Last Values WBC 3.6 Th/cmm (4.8-10.8) L 06/12/17 07:15 RBC 2.50 Mil/cmm (4.30-5.70) L 06/12/17 07:15 Hgb 8.2 gm/dL (13.2-17.3) L 06/12/17 07:15 Hct 24.1 % (39.0-49.0) L 06/12/17 07:15 MCV 96.2 fl (80-99) 06/12/17 07:15 MCH 32.7 pg (26.0-30.0) H 06/12/17 07:15 MCHC Differential 34.0 pg (28.0-36.0) 06/12/17 07:15 RDW 15.5 % (11.5-20.0) 06/12/17 07:15 Plt Count 48 Th/cmm (150-400) L D 06/12/17 07:15 MPV 9.8 fl 06/12/17 07:15 Neutrophils % 64.8 % (40.0-80.0) 06/10/17 04:40 Band Neutrophils % 2 % (0-10) 06/11/17 05:00 Lymphocytes % 18.4 % (20.0-50.0) L 06/10/17 04:40 Monocytes % 12.3 % (2.0-10.0) H 06/10/17 04:40 Eosinophils % 4.2 % (0.0-5.0) 06/10/17 04:40 Basophils % 0.3 % (0.0-2.0) 06/10/17 04:40 Neutrophils (Manual) 65 % (40-80) 06/11/17 05:00 Lymphocytes 15 % (20-50) L 06/11/17 05:00 Monocytes 10 % (2-10) 06/11/17 05:00 Eosinophils 7 % (0-5) H 06/11/17 05:00 Metamyelocytes 1 % (0-0) H 06/11/17 05:00 Nucleated RBCs 1.0 % (0-0) H 06/08/17 04:59 Platelet Estimate DECREASED PLATELETS (NORMAL) 06/11/17 05:00 Platelet Morphology PLATELET CLUMPS SEEN (NORMAL) 06/11/17 05:00 Anisocytosis 1+ 06/08/17 04:59 RBC Morph Micro Appear NORMAL (NORMAL) 06/11/17 05:00 Specimen Source ARTERIAL 06/10/17 08:43 Sample Site Left Radial 06/10/17 08:43 pH 7.46 (7.35-7.45) H 06/10/17 08:43 pCO2 36.0 mmHg (35.0-45.0) 06/10/17 08:43 pO2 92.0 mmHg (80.0-100.0) 06/10/17 08:43 HCO3 26.4 mEq/L (20.0-26.0) H 06/10/17 08:43 Base Excess 1.9 mEq/L (-3.0-3.0) 06/10/17 08:43 O2 Saturation 98.0 % (92.0-100.0) 06/10/17 08:43 Jose L Test POSITIVE 06/10/17 08:43 Vent Rate 12 06/10/17 08:43 Inspired O2 40 06/10/17 08:43 Tidal Volume 500 06/10/17 08:43 PEEP 5 06/10/17 08:43 Pressure (ins/psv/peep) N/A 06/10/17 08:43 Critical Value SAURABH 06/10/17 08:43 Sodium 138 mEq/L (136-145) 06/11/17 05:00 Potassium 3.6 mEq/L (3.5-5.1) 06/11/17 05:00 Chloride 110 mEq/L (98-107) H 06/11/17 05:00 Carbon Dioxide 24.8 mEq/L (21.0-31.0) 06/11/17 05:00 Anion Gap 6.8 (7.0-16.0) L 06/11/17 05:00 BUN 9 mg/dL (7-25) 06/11/17 05:00 Creatinine 0.4 mg/dL (0.7-1.3) L 06/11/17 05:00 Est GFR ( Amer) > 60.0 ml/min (>90) 06/11/17 05:00 Est GFR (Non-Af Amer) > 60.0 ml/min 06/11/17 05:00 BUN/Creatinine Ratio 22.5 06/11/17 05:00 Glucose 112 mg/dL (70-105) H 06/11/17 05:00 Plasma/Ser Osmolality 313 mOsmol/kg (275-295) H 06/09/17 05:07 Whole Bld Lactic Acid 1.51 mmol/L (0.60-1.99) 06/08/17 04:59 Calcium 8.5 mg/dL (8.6-10.3) L 06/11/17 05:00 Phosphorus 2.7 mg/dL (2.5-5.0) 06/08/17 04:59 Magnesium 2.2 mg/dL (1.9-2.7) 06/09/17 05:07 Iron 71 ug/dL (38-169) 06/08/17 04:59 TIBC 173 ug/dL (250-450) L 06/08/17 04:59 Iron Saturation 41 % (15-55) 06/08/17 04:59 Unsaturated IBC 102 ug/dL (111-343) L 06/08/17 04:59 Ferritin 303 ng/mL (30-400) 06/08/17 04:59 Total Bilirubin 0.8 mg/dL (0.3-1.0) 06/09/17 05:07 Direct Bilirubin 0.40 mg/dL (0.0-0.2) H 06/09/17 05:07 AST 34 U/L (13-39) 06/09/17 05:07 ALT 20 U/L (7-52) 06/09/17 05:07 Alkaline Phosphatase 171 U/L (34-104) H 06/09/17 05:07 Ammonia 68 umol/L (16-53) H 06/12/17 07:15 Troponin I 0.01 ng/mL (0.01-0.05) 06/07/17 13:28 B-Natriuretic Peptide 91.8 pg/mL (5.0-100.0) 06/07/17 13:28 Total Protein 6.8 gm/dL (6.0-8.3) 06/09/17 05:07 Albumin 2.3 gm/dL (4.2-5.5) L 06/09/17 05:07 Globulin 4.5 gm/dL 06/09/17 05:07 Albumin/Globulin Ratio 0.5 (1.0-1.8) L 06/09/17 05:07 Vitamin B12 >1999 pg/mL (211-946) H 06/08/17 04:59 Folic Acid >20.0 ng/mL (>3.0) 06/08/17 04:59 Urine Source RANDOM 06/07/17 13:25 Urine Color NISA 06/07/17 13:25 Urine Clarity CLOUDY (CLEAR) 06/07/17 13:25 Urine pH 5.5 (4.6 - 8.0) 06/07/17 13:25 Ur Specific [place] 1.020 (1.005-1.030) 06/07/17 13:25 Urine Protein >=300 mg/dL (NEGATIVE) 06/07/17 13:25 Urine Glucose (UA) NEGATIVE mg/dL (NEGATIVE) 06/07/17 13:25 Urine Ketones 15 mg/dL (NEGATIVE) H 06/07/17 13:25 Urine Blood LARGE (NEGATIVE) H 06/07/17 13:25 Urine Nitrate POSITIVE (NEGATIVE) H 06/07/17 13:25 Urine Bilirubin MODERATE (NEGATIVE) H 06/07/17 13:25 Urine Urobilinogen 2.0 E.U./dL (0.2 - 1.0) 06/07/17 13:25 Ur Leukocyte Esterase MODERATE (NEGATIVE) H 06/07/17 13:25 Urine RBC >100 /hpf (0-5) H 06/07/17 13:25 Urine WBC 2-5 /hpf (0-5) H 06/07/17 13:25 Ur Epithelial Cells OCCASIONAL /lpf (FEW) 06/07/17 13:25 Urine Bacteria FEW /hpf (NONE SEEN) 06/07/17 13:25 Urine Osmolality 776 mOsmol/kg 06/09/17 05:53 Ur Random Sodium 119 mmol/L 06/08/17 18:16 Stool Occult Blood NEGATIVE (NEGATIVE) 06/09/17 05:13 Vancomycin Trough 14.9 ug/mL (10-20) 06/09/17 09:30 Blood Type O POSITIVE 06/09/17 09:30 Antibody Screen NEGATIVE 06/09/17 09:30 - Physical Exam Vitals and I&O: Vital Signs Temp 97.8 F 06/12/17 00:00 Pulse 71 06/12/17 06:00 Resp 20 06/12/17 06:00 BP 108/59 06/12/17 06:00 Pulse Ox 99 06/12/17 06:00 Intake & Output 06/11/17 06/12/17 06/12/17 18:59 06:59 18:59 Intake Total 2550 1924 Output Total 3900 650 Balance -1350 1274 Weight (lbs) 82.554 kg 83.007 kg Intake: Intake, IV Amount 1350 1324 Cefepime 1 gm In Dextrose 100 50 5% 50 ml @ 100 mls/hr IV Q8H [facility] Rx#:[id number] Colistimethate 75 mg In 100 Sodium Chloride 0.9% 100 ml @ 100 mls/hr IV Q12HR [facility] Rx#:[id number] Dextrose 5% 1,000 ml @ 1000 100 mls/hr IV .Q10H [facility] Rx#:[id number] Dextrose 5% 1,000 ml @ 60 924 mls/hr IV .[id number] [facility] Rx#:[id number] Vancomycin HCl 1.25 gm In 250 250 Sodium Chloride 0.9% 250 ml @ 165 mls/hr IV Q12H [facility] Rx#:[id number] Tube Feeding 1200 TPN/PPN 600 Output: Urine 3900 650 Other: # Bowel Movements 4 1 Stool Characteristics Liquid Liquid Brown Brown Active Medications: Current Medications Albuterol/Ipratropium (Duoneb Neb) 3 ml HHN Q4HR [facility] Stop: 08/06/17 19:59 Last Admin: 06/11/17 19:46 Dose: 3 ml Albuterol/Ipratropium (Duoneb Neb) 3 ml HHN Q4HRT [facility] Stop: 08/07/17 18:59 Last Admin: 06/12/17 03:44 Dose: 3 ml Amlodipine Besylate (Norvasc) 5 mg GT Q12HR [facility] Stop: 08/06/17 20:59 Last Admin: 06/11/17 21:01 Dose: Not Given Artificial Tears (Artificial Tears Ophth Soln) 2 drop EACH EYE Q6H PRN PRN Reason: eye dryness Stop: 08/06/17 20:54 Last Admin: 06/12/17 01:03 Dose: 2 drop Atorvastatin Calcium (Lipitor) 10 mg GT HS [facility] PRN Reason: Protocol Stop: 08/06/17 20:59 Last Admin: 06/11/17 20:06 Dose: 10 mg Bisacodyl (Dulcolax 10 Mg Supp) 10 mg RC DAILY PRN PRN Reason: Constipation Stop: 08/06/17 19:17 Budesonide (Pulmicort) 0.5 mg HHN BIDRT [facility] Stop: 08/07/17 18:59 Last Admin: 06/11/17 19:46 Dose: 0.5 mg Calcium/Vitamin D (Oscal W/Vitamin D) 1 tab GT DAILY [facility] Stop: 08/07/17 08:59 Last Admin: 06/11/17 08:43 Dose: 1 tab Chlorhexidine Gluconate (Peridex) 15 ml MM 0800,1999 [facility] Stop: 08/08/17 19:59 Last Admin: 06/11/17 20:04 Dose: 15 ml Clonazepam (Klonopin) 2 mg GT DAILY [facility] Stop: 08/07/17 08:59 Last Admin: 06/11/17 08:43 Dose: 2 mg Ferrous Sulfate (Iron) 300 mg GT BID [facility] Stop: 08/06/17 20:59 Last Admin: 06/11/17 16:10 Dose: 300 mg Folic Acid (Folate) 2.5 mg GT DAILY [facility] Stop: 08/07/17 08:59 Last Admin: 06/11/17 08:43 Dose: 2.5 mg Hydralazine HCl (Apresoline) 50 mg GT Q8HR [facility] Stop: 08/06/17 20:59 Last Admin: 06/12/17 05:33 Dose: Not Given Cefepime HCl 1 gm/ Dextrose 50 mls @ 100 mls/hr IV Q8H [facility] Stop: 08/07/17 00:59 Last Infusion: 06/12/17 02:47 Dose: Infused Vancomycin HCl 1.25 gm/ Sodium (Chloride) 250 mls @ 165 mls/hr IV Q12H [facility] Stop: 08/07/17 09:59 Last Infusion: 06/11/17 22:48 Dose: Infused Dextrose (D5w) 1,000 mls @ 60 mls/hr IV .[id number] [facility] Stop: 08/07/17 09:37 Last Admin: 06/12/17 06:45 Dose: 60 mls/hr Colistimethate Sodium 75 mg/ (Sodium Chloride) 100 mls @ 100 mls/hr IV Q12HR [facility] Stop: 08/10/17 20:59 Last Infusion: 06/11/17 21:05 Dose: Infused Lactobacillus Rhamnosus (Culturelle) 1 each PO DAILY [facility] Stop: 08/08/17 08:59 Last Admin: 06/11/17 08:43 Dose: 1 each Lactulose (Cephulac) 30 gm GT Q6HR [facility] Stop: 08/08/17 17:59 Last Admin: 06/12/17 05:27 Dose: 30 gm Levetiracetam (Keppra) 1,000 mg GT Q8HR [facility] Stop: 08/06/17 20:59 Last Admin: 06/12/17 05:33 Dose: 1,000 mg Magnesium Hydroxide (Milk Of Magnesia) 30 ml GT HS PRN PRN Reason: Constipation Stop: 08/06/17 19:17 Magnesium Oxide (Mag-Oxide) 400 mg GT DAILY [facility] Stop: 08/07/17 08:59 Last Admin: 06/11/17 08:44 Dose: 400 mg Metoprolol Tartrate (Lopressor) 100 mg GT Q12HR [facility] Stop: 08/06/17 20:59 Last Admin: 06/11/17 21:03 Dose: Not Given Miscellaneous (Vancomycin Iv Per Pharmacy) 1 ea PRN PRN PRN Reason: PROTOCOL Stop: 08/07/17 07:59 Miscellaneous (Probiotic Screen) 1 [facility] PRN PRN PRN Reason: PROTOCOL Stop: 08/07/17 10:42 Phytonadione (Mephyton) 10 mg GT DAILY [facility] Stop: 08/07/17 19:59 Last Admin: 06/11/17 08:41 Dose: 10 mg Potassium Chloride (Potassium Chloride Elixir) 20 meq GT BID [facility] Stop: 08/07/17 08:59 Last Admin: 06/11/17 16:09 Dose: 20 meq Propranolol HCl (Inderal) 20 mg GT TID [facility] Stop: 08/06/17 20:59 Last Admin: 06/11/17 21:03 Dose: Not Given Pyridoxine HCl (Vitamin B6) 100 mg GT DAILY [facility] Stop: 08/07/17 08:59 Last Admin: 08/16/17 08:44 Dose: 100 mg Rifaximin (Xifaxan) 500 mg PO BID [facility] Stop: 08/07/17 16:59 Last Admin: 06/11/17 16:09 Dose: 500 mg Sodium Phosphate (Fleet Enema) 135 ml RC Q48H PRN PRN Reason: IF DULCOLAX IS INEFFECTIVE Stop: 08/06/17 19:17 Thiamine HCl (Vitamin B1) 100 mg GT DAILY [facility] Stop: 08/07/17 08:59 Last Admin: 06/11/17 08:48 Dose: 100 mg Valproate Sodium (Depakene) 500 mg GT TID [facility] PRN Reason: Protocol Stop: 08/06/17 20:59 Last Admin: 06/11/17 21:16 Dose: 500 mg General: Alert, No acute distress HEENT: Atraumatic, PERRLA, EOMI, Mucous membr. moist/pink Neck: Supple, +2 carotid pulse wo bruit Cardiovascular: Regular rate, Normal S1, Normal S2 Lungs: Clear to auscultation Abdomen: Bowel sounds, Soft Extremities: no Edema Neurological: Sensation intact Skin: no Rash Psych/Mental Status: Mood NL - Procedures Procedures: Procedures Procedure Code Date RESPIRATORY VENTILATION, GREATER THAN 96 CONSECUTIVE HOURS [id number] 06/07/17 Assessment/Plan - Problem List Patient Problems: All Active Problems ELEVATED NA+, AND BUN LEVELS (Acute) - Assessment Assessment: s/p respiratory failure pnumonia s/p trch and peg trmors h/o alcoholism h/o sizures - Plan Plan: iv antibiotics vent support continue current plan of care Nutritional Asmnt/Malnutr-PDOC - Dietary Evaluation Malnutrition Findings (Please click <Entered> for more info): Nutritional Asmnt/Malnutrition Start: 06/09/17 11: 00 Text: Status: Complete Freq: Document 06/09/17 13:09 [facility] (Rec: 06/09/17 13:27 [facility] [id number]) Nutritional Asmnt/Malnutrition Patient General Information Nutritional Screening High Risk Screening Diagnosis Sepsis, UTI, right and left lower lobe infiltrate, pneumonia Pertinent Medical Hx/Surgical Hx Alcohol problem, liver disease , cirrhosis of the liver, hepatic comas, seizures, trachestomy, PEG, asthma, COPD Subjective Information Pt is a 52-year-old male from [facility] admitted with chief complaint of shortness of breath and falling oxygen saturation. Pt has tracheostomy to ventilator. Pt was unable to provide nutritional hx. Pt appears well nourished with no signs of muscle or fat depletion. Order to resume tube feeding; bag of Novosource Renal at bedside not yet started. Abdomen Ultrasound 06/09 notes some abdominal ascites. Current Diet Order/ Nutrition Support Novosource Renal at 55 ml/hr = 2640kcals, 120gm protein, 946ml free water Patient / S.O Can't verbalize diet edu Pertinent Medications Oscal with Vitamin D, Cefepime , D5w, Iron, Folate, Culturelle, MagOxide, Mephyton , KCl Elixir, Vitamin B6, Vitamin B1, Depakene, Vancomycin Pertinent Labs (06/09) Na 148H (improving), K 3L, Alkaline Phosphatase 171H, Ammonia 64H, Albumin 3.3L Nutritional Hx/Data Height 1.68 m Height (Calculated Centimeters) 167.6 Current Weight (lbs) 76.657 kg Weight (Calculated Kilograms) 76.7 Weight (Calculated Grams) 18259.1 Usual body Weight (lbs) 168 % Usual Body Weight 100 [place] Body Weight 142 % [place] Body Weight 119 Recent Weight Change No Weight Status Overweight GI Symptoms GI Symptoms Diarrhea Difficult in: Chewing Swallowing Food Allergies No Usual diet at home Nepro 1.8 (237 ml) QID 0900, 1300, 1700, 2100, sugar free ProStat 30 ml Skin Integrity/Comment: Vitor Thomas. Skin intact. Estimated Nutritional Goals BEE in Kcals: Using Current wt Calories/Kcals/Kg Based on current wt 76.8 kg with consideration of sepsis: Kcals Calculated 6560-3628 kcals/day (27-32 kcals/kg) to prevent wt gain with overwt status Protein: Using Current wt Protein g/kg: Based on current wt 76.8 kg with consideration of sepsis: Protein Calculated 92-115 gm/day (1.2-1.5 gm/kg) Fluid: ml Per MD/DO due to abnormal electrolytes Nutritional Problem 1. Problem Problem Excessive intake from enteral nutrition related to Etiology increased energy intake from calorically dense tube feeding formula as evidenced by Signs/Symptoms: current tube feeding meets 104 % of higher end of estimated calories needs. Malnutrition Alert Protein-Calorie Malnutrition N/A Is there a minimum of two criteria No selected? Query Text:Check all the applicable criteria. A minimum of two criteria are recommended for diagnosis of either severe or non-severe malnutrition. Malnutrition Related to Morbid Obesity Malnutrition related to morbid obesity No Intervention/Recommendation Recommendations by RD Decrease Calorie Intake Comments 1. Recommend decrease tube feeding Novosource Renal at goal rate of 50 ml/hr to provide 2400 kcals, 109 gm protein, and 860 ml free water per day. Monitor renal labs to prioritize protein needs. Expected Outcomes/Goals Expected Outcomes/Goals Provide pt with 100% of estimated nutritional needs. Physician Parameters for PEM Serum Albumin (g/dl) 3.1 - 3.4 (Mild)
[2017-06-12] MEDS: Budesonide 0.5 Mg/2 mL Ud HHN SCH ×2 (08:03→19:04)
[2017-06-12] MEDS: Calcium Carb/Vit D 500 mg/200 U Tab GT SCH (09:14)
[2017-06-12] MEDS: Ferrous Sulfate 300 MG/5 ML UDC GT SCH (09:14)
[2017-06-12] MEDS: Potassium Chloride Elixir 20 mEq /15 mL UDC GT SCH ×2 (09:15→16:56)
[2017-06-12] MEDS: Lactobacillus Rhamnosus 10 Billion CFU Capsule PO SCH (09:15)
--- NOTE | 2017-06-12 10:30 | General Progress Note ---
Subjective - Review of Systems Service Date: 06/12/17 Subjective: awake, non communicative Objective - Results Result Diagrams: 06/12/17 07:15 06/11/17 05:00 Recent Labs: Laboratory Last Values WBC 3.6 Th/cmm (4.8-10.8) L 06/12/17 07:15 RBC 2.50 Mil/cmm (4.30-5.70) L 06/12/17 07:15 Hgb 8.2 gm/dL (13.2-17.3) L 06/12/17 07:15 Hct 24.1 % (39.0-49.0) L 06/12/17 07:15 MCV 96.2 fl (80-99) 06/12/17 07:15 MCH 32.7 pg (26.0-30.0) H 06/12/17 07:15 MCHC Differential 34.0 pg (28.0-36.0) 06/12/17 07:15 RDW 15.5 % (11.5-20.0) 06/12/17 07:15 Plt Count 48 Th/cmm (150-400) L D 06/12/17 07:15 MPV 9.8 fl 06/12/17 07:15 Neutrophils % 64.8 % (40.0-80.0) 06/10/17 04:40 Band Neutrophils % 2 % (0-10) 06/11/17 05:00 Lymphocytes % 18.4 % (20.0-50.0) L 06/10/17 04:40 Monocytes % 12.3 % (2.0-10.0) H 06/10/17 04:40 Eosinophils % 4.2 % (0.0-5.0) 06/10/17 04:40 Basophils % 0.3 % (0.0-2.0) 06/10/17 04:40 Neutrophils (Manual) 65 % (40-80) 06/11/17 05:00 Lymphocytes 15 % (20-50) L 06/11/17 05:00 Monocytes 10 % (2-10) 06/11/17 05:00 Eosinophils 7 % (0-5) H 06/11/17 05:00 Metamyelocytes 1 % (0-0) H 06/11/17 05:00 Nucleated RBCs 1.0 % (0-0) H 06/08/17 04:59 Platelet Estimate DECREASED PLATELETS (NORMAL) 06/11/17 05:00 Platelet Morphology PLATELET CLUMPS SEEN (NORMAL) 06/11/17 05:00 Anisocytosis 1+ 06/08/17 04:59 RBC Morph Micro Appear NORMAL (NORMAL) 06/11/17 05:00 Specimen Source ARTERIAL 06/10/17 08:43 Sample Site Left Radial 06/10/17 08:43 pH 7.46 (7.35-7.45) H 06/10/17 08:43 pCO2 36.0 mmHg (35.0-45.0) 06/10/17 08:43 pO2 92.0 mmHg (80.0-100.0) 06/10/17 08:43 HCO3 26.4 mEq/L (20.0-26.0) H 06/10/17 08:43 Base Excess 1.9 mEq/L (-3.0-3.0) 06/10/17 08:43 O2 Saturation 98.0 % (92.0-100.0) 06/10/17 08:43 Jose L Test POSITIVE 06/10/17 08:43 Vent Rate 12 06/10/17 08:43 Inspired O2 40 06/10/17 08:43 Tidal Volume 500 06/10/17 08:43 PEEP 5 06/10/17 08:43 Pressure (ins/psv/peep) N/A 06/10/17 08:43 Critical Value SAURABH 06/10/17 08:43 Sodium 138 mEq/L (136-145) 06/11/17 05:00 Potassium 3.6 mEq/L (3.5-5.1) 06/11/17 05:00 Chloride 110 mEq/L (98-107) H 06/11/17 05:00 Carbon Dioxide 24.8 mEq/L (21.0-31.0) 06/11/17 05:00 Anion Gap 6.8 (7.0-16.0) L 06/11/17 05:00 BUN 9 mg/dL (7-25) 06/11/17 05:00 Creatinine 0.4 mg/dL (0.7-1.3) L 06/11/17 05:00 Est GFR ( Amer) > 60.0 ml/min (>90) 06/11/17 05:00 Est GFR (Non-Af Amer) > 60.0 ml/min 06/11/17 05:00 BUN/Creatinine Ratio 22.5 06/11/17 05:00 Glucose 112 mg/dL (70-105) H 06/11/17 05:00 Plasma/Ser Osmolality 313 mOsmol/kg (275-295) H 06/09/17 05:07 Whole Bld Lactic Acid 1.51 mmol/L (0.60-1.99) 06/08/17 04:59 Calcium 8.5 mg/dL (8.6-10.3) L 06/11/17 05:00 Phosphorus 2.7 mg/dL (2.5-5.0) 06/08/17 04:59 Magnesium 2.2 mg/dL (1.9-2.7) 06/09/17 05:07 Iron 71 ug/dL (38-169) 06/08/17 04:59 TIBC 173 ug/dL (250-450) L 06/08/17 04:59 Iron Saturation 41 % (15-55) 06/08/17 04:59 Unsaturated IBC 102 ug/dL (111-343) L 06/08/17 04:59 Ferritin 303 ng/mL (30-400) 06/08/17 04:59 Total Bilirubin 0.8 mg/dL (0.3-1.0) 06/09/17 05:07 Direct Bilirubin 0.40 mg/dL (0.0-0.2) H 06/09/17 05:07 AST 34 U/L (13-39) 06/09/17 05:07 ALT 20 U/L (7-52) 06/09/17 05:07 Alkaline Phosphatase 171 U/L (34-104) H 06/09/17 05:07 Ammonia 68 umol/L (16-53) H 06/12/17 07:15 Troponin I 0.01 ng/mL (0.01-0.05) 06/07/17 13:28 B-Natriuretic Peptide 91.8 pg/mL (5.0-100.0) 06/07/17 13:28 Total Protein 6.8 gm/dL (6.0-8.3) 06/09/17 05:07 Albumin 2.3 gm/dL (4.2-5.5) L 06/09/17 05:07 Globulin 4.5 gm/dL 06/09/17 05:07 Albumin/Globulin Ratio 0.5 (1.0-1.8) L 06/09/17 05:07 Vitamin B12 >1999 pg/mL (211-946) H 06/08/17 04:59 Folic Acid >20.0 ng/mL (>3.0) 06/08/17 04:59 Urine Source RANDOM 06/07/17 13:25 Urine Color NISA 06/07/17 13:25 Urine Clarity CLOUDY (CLEAR) 06/07/17 13:25 Urine pH 5.5 (4.6 - 8.0) 06/07/17 13:25 Ur Specific [place] 1.020 (1.005-1.030) 06/07/17 13:25 Urine Protein >=300 mg/dL (NEGATIVE) 06/07/17 13:25 Urine Glucose (UA) NEGATIVE mg/dL (NEGATIVE) 06/07/17 13:25 Urine Ketones 15 mg/dL (NEGATIVE) H 06/07/17 13:25 Urine Blood LARGE (NEGATIVE) H 06/07/17 13:25 Urine Nitrate POSITIVE (NEGATIVE) H 06/07/17 13:25 Urine Bilirubin MODERATE (NEGATIVE) H 06/07/17 13:25 Urine Urobilinogen 2.0 E.U./dL (0.2 - 1.0) 06/07/17 13:25 Ur Leukocyte Esterase MODERATE (NEGATIVE) H 06/07/17 13:25 Urine RBC >100 /hpf (0-5) H 06/07/17 13:25 Urine WBC 2-5 /hpf (0-5) H 06/07/17 13:25 Ur Epithelial Cells OCCASIONAL /lpf (FEW) 06/07/17 13:25 Urine Bacteria FEW /hpf (NONE SEEN) 06/07/17 13:25 Urine Osmolality 776 mOsmol/kg 06/09/17 05:53 Ur Random Sodium 119 mmol/L 06/08/17 18:16 Stool Occult Blood NEGATIVE (NEGATIVE) 06/09/17 05:13 Vancomycin Trough 14.9 ug/mL (10-20) 06/09/17 09:30 Blood Type O POSITIVE 06/09/17 09:30 Antibody Screen NEGATIVE 06/09/17 09:30 - Physical Exam Vitals and I&O: Vital Signs Temp 97.3 F 06/12/17 08:00 Pulse 74 06/12/17 09:16 Resp 19 06/12/17 08:00 BP 103/52 06/12/17 09:16 Pulse Ox 100 06/12/17 08:00 Intake & Output 06/11/17 06/12/17 06/12/17 18:59 06:59 18:59 Intake Total 2550 1924 Output Total 3900 650 Balance -1350 1274 Weight (lbs) 82.554 kg 83.007 kg 83.007 kg Intake: Intake, IV Amount 1350 1324 Cefepime 1 gm In Dextrose 100 50 5% 50 ml @ 100 mls/hr IV Q8H [facility] Rx#:[id number] Colistimethate 75 mg In 100 Sodium Chloride 0.9% 100 ml @ 100 mls/hr IV Q12HR [facility] Rx#:[id number] Dextrose 5% 1,000 ml @ 1000 100 mls/hr IV .Q10H [facility] Rx#:[id number] Dextrose 5% 1,000 ml @ 60 924 mls/hr IV .[id number] [facility] Rx#:[id number] Vancomycin HCl 1.25 gm In 250 250 Sodium Chloride 0.9% 250 ml @ 165 mls/hr IV Q12H [facility] Rx#:[id number] Tube Feeding 1200 TPN/PPN 600 Output: Urine 3900 650 Other: # Bowel Movements 4 1 Stool Characteristics Liquid Liquid Brown Brown Active Medications: Current Medications Albuterol/Ipratropium (Duoneb Neb) 3 ml HHN Q4HR [facility] Stop: 08/06/17 19:59 Last Admin: 06/12/17 08:03 Dose: 3 ml Albuterol/Ipratropium (Duoneb Neb) 3 ml HHN Q4HRT [facility] Stop: 08/07/17 18:59 Last Admin: 06/12/17 03:44 Dose: 3 ml Amlodipine Besylate (Norvasc) 5 mg GT Q12HR [facility] Stop: 08/06/17 20:59 Last Admin: 06/12/17 09:16 Dose: Not Given Artificial Tears (Artificial Tears Ophth Soln) 2 drop EACH EYE Q6H PRN PRN Reason: eye dryness Stop: 08/06/17 20:54 Last Admin: 06/12/17 01:03 Dose: 2 drop Atorvastatin Calcium (Lipitor) 10 mg GT HS [facility] PRN Reason: Protocol Stop: 08/06/17 20:59 Last Admin: 06/11/17 20:06 Dose: 10 mg Bisacodyl (Dulcolax 10 Mg Supp) 10 mg RC DAILY PRN PRN Reason: Constipation Stop: 08/06/17 19:17 Budesonide (Pulmicort) 0.5 mg HHN BIDRT [facility] Stop: 08/07/17 18:59 Last Admin: 06/12/17 08:03 Dose: 0.5 mg Calcium/Vitamin D (Oscal W/Vitamin D) 1 tab GT DAILY [facility] Stop: 08/07/17 08:59 Last Admin: 06/12/17 09:14 Dose: 1 tab Chlorhexidine Gluconate (Peridex) 15 ml MM 0800,1999 [facility] Stop: 08/08/17 19:59 Last Admin: 06/12/17 07:58 Dose: 15 ml Clonazepam (Klonopin) 2 mg GT DAILY [facility] Stop: 08/07/17 08:59 Last Admin: 06/12/17 09:14 Dose: 2 mg Ferrous Sulfate (Iron) 300 mg GT BID [facility] Stop: 08/06/17 20:59 Last Admin: 06/12/17 09:14 Dose: 300 mg Folic Acid (Folate) 2.5 mg GT DAILY [facility] Stop: 08/07/17 08:59 Last Admin: 06/12/17 09:14 Dose: 2.5 mg Hydralazine HCl (Apresoline) 50 mg GT Q8HR [facility] Stop: 08/06/17 20:59 Last Admin: 06/12/17 05:33 Dose: Not Given Cefepime HCl 1 gm/ Dextrose 50 mls @ 100 mls/hr IV Q8H [facility] Stop: 08/07/17 00:59 Last Admin: 06/12/17 08:24 Dose: 100 mls/hr Vancomycin HCl 1.25 gm/ Sodium (Chloride) 250 mls @ 165 mls/hr IV Q12H [facility] Stop: 08/07/17 09:59 Last Infusion: 06/11/17 22:48 Dose: Infused Dextrose (D5w) 1,000 mls @ 60 mls/hr IV .[id number] [facility] Stop: 08/07/17 09:37 Last Admin: 06/12/17 06:45 Dose: 60 mls/hr Colistimethate Sodium 75 mg/ (Sodium Chloride) 100 mls @ 100 mls/hr IV Q12HR [facility] Stop: 08/10/17 20:59 Last Admin: 06/12/17 09:15 Dose: 100 mls/hr Lactobacillus Rhamnosus (Culturelle) 1 each PO DAILY [facility] Stop: 08/08/17 08:59 Last Admin: 06/12/17 09:15 Dose: 1 each Lactulose (Cephulac) 30 gm GT Q6HR [facility] Stop: 08/08/17 17:59 Last Admin: 06/12/17 05:27 Dose: 30 gm Levetiracetam (Keppra) 1,000 mg GT Q8HR [facility] Stop: 08/06/17 20:59 Last Admin: 06/12/17 05:33 Dose: 1,000 mg Magnesium Hydroxide (Milk Of Magnesia) 30 ml GT HS PRN PRN Reason: Constipation Stop: 08/06/17 19:17 Magnesium Oxide (Mag-Oxide) 400 mg GT DAILY [facility] Stop: 08/07/17 08:59 Last Admin: 06/12/17 09:15 Dose: 400 mg Metoprolol Tartrate (Lopressor) 100 mg GT Q12HR [facility] Stop: 08/06/17 20:59 Last Admin: 06/12/17 09:16 Dose: Not Given Miscellaneous (Vancomycin Iv Per Pharmacy) 1 ea PRN PRN PRN Reason: PROTOCOL Stop: 08/07/17 07:59 Miscellaneous (Probiotic Screen) 1 ea PRN PRN PRN Reason: PROTOCOL Stop: 08/07/17 10:42 Phytonadione (Mephyton) 10 mg GT DAILY [facility] Stop: 08/07/17 19:59 Last Admin: 06/12/17 09:17 Dose: 10 mg Potassium Chloride (Potassium Chloride Elixir) 20 meq GT BID [facility] Stop: 08/07/17 08:59 Last Admin: 06/12/17 09:15 Dose: 20 meq Propranolol HCl (Inderal) 20 mg GT TID [facility] Stop: 08/06/17 20:59 Last Admin: 06/12/17 09:16 Dose: Not Given Pyridoxine HCl (Vitamin B6) 100 mg GT DAILY [facility] Stop: 08/07/17 08:59 Last Admin: 06/12/17 09:15 Dose: 100 mg Rifaximin (Xifaxan) 500 mg PO BID [facility] Stop: 08/07/17 16:59 Last Admin: 06/12/17 09:17 Dose: 500 mg Sodium Phosphate (Fleet Enema) 135 ml RC Q48H PRN PRN Reason: IF DULCOLAX IS INEFFECTIVE Stop: 08/06/17 19:17 Thiamine HCl (Vitamin B1) 100 mg GT DAILY [facility] Stop: 08/07/17 08:59 Last Admin: 06/12/17 09:14 Dose: 100 mg Valproate Sodium (Depakene) 500 mg GT TID [facility] PRN Reason: Protocol Stop: 08/06/17 20:59 Last Admin: 06/12/17 09:14 Dose: 500 mg General: Alert, No acute distress HEENT: Atraumatic, PERRLA, EOMI, Mucous membr. moist/pink Neck: Supple, +2 carotid pulse wo bruit Cardiovascular: Regular rate, Normal S1, Normal S2 Lungs: Clear to auscultation Abdomen: Bowel sounds, Soft Extremities: no Edema Neurological: Sensation intact Skin: no Rash Psych/Mental Status: Mood NL - Procedures Procedures: Procedures Procedure Code Date RESPIRATORY VENTILATION, GREATER THAN 96 CONSECUTIVE HOURS [id number] 06/07/17 Assessment/Plan - Problem List Patient Problems: All Active Problems ELEVATED NA+, AND BUN LEVELS (Acute) - Assessment Assessment: * SPLENOMEGALY. * THROMBOCYTOPENIA. S/P TX * RESPIRATORY FAILURE. * ANEMIA OF CHRONIC DISEASE. FOLLow stool ob d/c fe no need for tx Nutritional Asmnt/Malnutr-PDOC - Dietary Evaluation Malnutrition Findings (Please click <Entered> for more info): Nutritional Asmnt/Malnutrition Start: 06/09/17 11: 00 Text: Status: Complete Freq: Document 06/09/17 13:09 [facility] (Rec: 06/09/17 13:27 [facility] [id number]) Nutritional Asmnt/Malnutrition Patient General Information Nutritional Screening High Risk Screening Diagnosis Sepsis, UTI, right and left lower lobe infiltrate, pneumonia Pertinent Medical Hx/Surgical Hx Alcohol problem, liver disease , cirrhosis of the liver, hepatic comas, seizures, trachestomy, PEG, asthma, COPD Subjective Information Pt is a 52-year-old male from [facility] admitted with chief complaint of shortness of breath and falling oxygen saturation. Pt has tracheostomy to ventilator. Pt was unable to provide nutritional hx. Pt appears well nourished with no signs of muscle or fat depletion. Order to resume tube feeding; bag of Novosource Renal at bedside not yet started. Abdomen Ultrasound 06/09 notes some abdominal ascites. Current Diet Order/ Nutrition Support Novosource Renal at 55 ml/hr = 2640kcals, 120gm protein, 946ml free water Patient / S.O Can't verbalize diet edu Pertinent Medications Oscal with Vitamin D, Cefepime , D5w, Iron, Folate, Culturelle, MagOxide, Mephyton , KCl Elixir, Vitamin B6, Vitamin B1, Depakene, Vancomycin Pertinent Labs (06/09) Na 148H (improving), K 3L, Alkaline Phosphatase 171H, Ammonia 64H, Albumin 3.3L Nutritional Hx/Data Height 1.68 m Height (Calculated Centimeters) 167.6 Current Weight (lbs) 76.657 kg Weight (Calculated Kilograms) 76.7 Weight (Calculated Grams) 39650.1 Usual body Weight (lbs) 168 % Usual Body Weight 100 [place] Body Weight 142 % [place] Body Weight 119 Recent Weight Change No Weight Status Overweight GI Symptoms GI Symptoms Diarrhea Difficult in: Chewing Swallowing Food Allergies No Usual diet at home Nepro 1.8 (237 ml) QID 0900, 1300, 1700, 2100, sugar free ProStat 30 ml Skin Integrity/Comment: Vitor Thomas. Skin intact. Estimated Nutritional Goals BEE in Kcals: Using Current wt Calories/Kcals/Kg Based on current wt 76.8 kg with consideration of sepsis: Kcals Calculated 3931-5949 kcals/day (27-32 kcals/kg) to prevent wt gain with overwt status Protein: Using Current wt Protein g/kg: Based on current wt 76.8 kg with consideration of sepsis: Protein Calculated 92-115 gm/day (1.2-1.5 gm/kg) Fluid: ml Per MD/DO due to abnormal electrolytes Nutritional Problem 1. Problem Problem Excessive intake from enteral nutrition related to Etiology increased energy intake from calorically dense tube feeding formula as evidenced by Signs/Symptoms: current tube feeding meets 104 % of higher end of estimated calories needs. Malnutrition Alert Protein-Calorie Malnutrition N/A Is there a minimum of two criteria No selected? Query Text:Check all the applicable criteria. A minimum of two criteria are recommended for diagnosis of either severe or non-severe malnutrition. Malnutrition Related to Morbid Obesity Malnutrition related to morbid obesity No Intervention/Recommendation Recommendations by RD Decrease Calorie Intake Comments 1. Recommend decrease tube feeding Novosource Renal at goal rate of 50 ml/hr to provide 2400 kcals, 109 gm protein, and 860 ml free water per day. Monitor renal labs to prioritize protein needs. Expected Outcomes/Goals Expected Outcomes/Goals Provide pt with 100% of estimated nutritional needs. Physician Parameters for PEM Serum Albumin (g/dl) 3.1 - 3.4 (Mild)
[2017-06-12 10:54] LABS: BAND NEUTROPHILE 4 % (0-10); EOSINOPHIL 6 % (0-5); PLATELET ESTIMATE DECREASED PLATELETS (NORMAL)
[2017-06-12 10:57] LABS: NEUTROPHILS 55 % (40-80)
[2017-06-12 10:59] LABS: PLATELET MORPHOLOGY NORMAL (NORMAL)
--- NOTE | 2017-06-12 18:59 | General Progress Note ---
Subjective - Review of Systems Service Date: 06/12/17 Subjective: awake, on vent Objective - Results Result Diagrams: 06/12/17 07:15 06/11/17 05:00 Recent Labs: Laboratory Last Values WBC 3.6 Th/cmm (4.8-10.8) L 06/12/17 07:15 RBC 2.50 Mil/cmm (4.30-5.70) L 06/12/17 07:15 Hgb 8.2 gm/dL (13.2-17.3) L 06/12/17 07:15 Hct 24.1 % (39.0-49.0) L 06/12/17 07:15 MCV 96.2 fl (80-99) 06/12/17 07:15 MCH 32.7 pg (26.0-30.0) H 06/12/17 07:15 MCHC Differential 34.0 pg (28.0-36.0) 06/12/17 07:15 RDW 15.5 % (11.5-20.0) 06/12/17 07:15 Plt Count 48 Th/cmm (150-400) L D 06/12/17 07:15 MPV 9.8 fl 06/12/17 07:15 Neutrophils % 64.8 % (40.0-80.0) 06/10/17 04:40 Band Neutrophils % 4 % (0-10) 06/12/17 07:15 Lymphocytes % 18.4 % (20.0-50.0) L 06/10/17 04:40 Monocytes % 12.3 % (2.0-10.0) H 06/10/17 04:40 Eosinophils % 4.2 % (0.0-5.0) 06/10/17 04:40 Basophils % 0.3 % (0.0-2.0) 06/10/17 04:40 Neutrophils (Manual) 55 % (40-80) 06/12/17 07:15 Lymphocytes 21 % (20-50) 06/12/17 07:15 Monocytes 14 % (2-10) H 06/12/17 07:15 Eosinophils 6 % (0-5) H 06/12/17 07:15 Metamyelocytes 1 % (0-0) H 06/11/17 05:00 Nucleated RBCs 1.0 % (0-0) H 06/08/17 04:59 Platelet Estimate DECREASED PLATELETS (NORMAL) 06/12/17 07:15 Platelet Morphology NORMAL (NORMAL) 06/12/17 07:15 Anisocytosis 1+ 06/08/17 04:59 RBC Morph Micro Appear NORMAL (NORMAL) 06/12/17 07:15 Specimen Source ARTERIAL 06/10/17 08:43 Sample Site Left Radial 06/10/17 08:43 pH 7.46 (7.35-7.45) H 06/10/17 08:43 pCO2 36.0 mmHg (35.0-45.0) 06/10/17 08:43 pO2 92.0 mmHg (80.0-100.0) 06/10/17 08:43 HCO3 26.4 mEq/L (20.0-26.0) H 06/10/17 08:43 Base Excess 1.9 mEq/L (-3.0-3.0) 06/10/17 08:43 O2 Saturation 98.0 % (92.0-100.0) 06/10/17 08:43 Jose L Test POSITIVE 06/10/17 08:43 Vent Rate 12 06/10/17 08:43 Inspired O2 40 06/10/17 08:43 Tidal Volume 500 06/10/17 08:43 PEEP 5 06/10/17 08:43 Pressure (ins/psv/peep) N/A 06/10/17 08:43 Critical Value SAURABH 06/10/17 08:43 Sodium 138 mEq/L (136-145) 06/11/17 05:00 Potassium 3.6 mEq/L (3.5-5.1) 06/11/17 05:00 Chloride 110 mEq/L (98-107) H 06/11/17 05:00 Carbon Dioxide 24.8 mEq/L (21.0-31.0) 06/11/17 05:00 Anion Gap 6.8 (7.0-16.0) L 06/11/17 05:00 BUN 9 mg/dL (7-25) 06/11/17 05:00 Creatinine 0.4 mg/dL (0.7-1.3) L 06/11/17 05:00 Est GFR ( Amer) > 60.0 ml/min (>90) 06/11/17 05:00 Est GFR (Non-Af Amer) > 60.0 ml/min 06/11/17 05:00 BUN/Creatinine Ratio 22.5 06/11/17 05:00 Glucose 112 mg/dL (70-105) H 06/11/17 05:00 Plasma/Ser Osmolality 313 mOsmol/kg (275-295) H 06/09/17 05:07 Whole Bld Lactic Acid 1.51 mmol/L (0.60-1.99) 06/08/17 04:59 Calcium 8.5 mg/dL (8.6-10.3) L 06/11/17 05:00 Phosphorus 2.7 mg/dL (2.5-5.0) 06/08/17 04:59 Magnesium 2.2 mg/dL (1.9-2.7) 06/09/17 05:07 Iron 71 ug/dL (38-169) 06/08/17 04:59 TIBC 173 ug/dL (250-450) L 06/08/17 04:59 Iron Saturation 41 % (15-55) 06/08/17 04:59 Unsaturated IBC 102 ug/dL (111-343) L 06/08/17 04:59 Ferritin 303 ng/mL (30-400) 06/08/17 04:59 Total Bilirubin 0.8 mg/dL (0.3-1.0) 06/09/17 05:07 Direct Bilirubin 0.40 mg/dL (0.0-0.2) H 06/09/17 05:07 AST 34 U/L (13-39) 06/09/17 05:07 ALT 20 U/L (7-52) 06/09/17 05:07 Alkaline Phosphatase 171 U/L (34-104) H 06/09/17 05:07 Ammonia 68 umol/L (16-53) H 06/12/17 07:15 Troponin I 0.01 ng/mL (0.01-0.05) 06/07/17 13:28 B-Natriuretic Peptide 91.8 pg/mL (5.0-100.0) 06/07/17 13:28 Total Protein 6.8 gm/dL (6.0-8.3) 06/09/17 05:07 Albumin 2.3 gm/dL (4.2-5.5) L 06/09/17 05:07 Globulin 4.5 gm/dL 06/09/17 05:07 Albumin/Globulin Ratio 0.5 (1.0-1.8) L 06/09/17 05:07 Vitamin B12 >1999 pg/mL (211-946) H 06/08/17 04:59 Folic Acid >20.0 ng/mL (>3.0) 06/08/17 04:59 Urine Source RANDOM 06/07/17 13:25 Urine Color NISA 06/07/17 13:25 Urine Clarity CLOUDY (CLEAR) 06/07/17 13:25 Urine pH 5.5 (4.6 - 8.0) 06/07/17 13:25 Ur Specific [place] 1.020 (1.005-1.030) 06/07/17 13:25 Urine Protein >=300 mg/dL (NEGATIVE) 06/07/17 13:25 Urine Glucose (UA) NEGATIVE mg/dL (NEGATIVE) 06/07/17 13:25 Urine Ketones 15 mg/dL (NEGATIVE) H 06/07/17 13:25 Urine Blood LARGE (NEGATIVE) H 06/07/17 13:25 Urine Nitrate POSITIVE (NEGATIVE) H 06/07/17 13:25 Urine Bilirubin MODERATE (NEGATIVE) H 06/07/17 13:25 Urine Urobilinogen 2.0 E.U./dL (0.2 - 1.0) 06/07/17 13:25 Ur Leukocyte Esterase MODERATE (NEGATIVE) H 06/07/17 13:25 Urine RBC >100 /hpf (0-5) H 06/07/17 13:25 Urine WBC 2-5 /hpf (0-5) H 06/07/17 13:25 Ur Epithelial Cells OCCASIONAL /lpf (FEW) 06/07/17 13:25 Urine Bacteria FEW /hpf (NONE SEEN) 06/07/17 13:25 Urine Osmolality 776 mOsmol/kg 06/09/17 05:53 Ur Random Sodium 119 mmol/L 06/08/17 18:16 Stool Occult Blood NEGATIVE (NEGATIVE) 06/12/17 17:30 Vancomycin Trough 14.9 ug/mL (10-20) 06/09/17 09:30 Blood Type O POSITIVE 06/09/17 09:30 Antibody Screen NEGATIVE 06/09/17 09:30 - Physical Exam Vitals and I&O: Vital Signs Temp 96.8 F 06/12/17 16:00 Pulse 68 06/12/17 18:00 Resp 19 06/12/17 18:00 BP 115/64 06/12/17 18:00 Pulse Ox 100 06/12/17 18:00 Intake & Output 06/11/17 06/12/17 06/12/17 18:59 06:59 18:59 Intake Total 2550 1924 1200 Output Total 3900 650 1650 Balance -1350 1274 -450 Weight (lbs) 82.554 kg 83.007 kg 83.007 kg Intake: Intake, IV Amount 1350 1324 450 Cefepime 1 gm In Dextrose 100 50 100 5% 50 ml @ 100 mls/hr IV Q8H [facility] Rx#:[id number] Colistimethate 75 mg In 100 100 Sodium Chloride 0.9% 100 ml @ 100 mls/hr IV Q12HR [place] Rx#:[id number] Dextrose 5% 1,000 ml @ 1000 100 mls/hr IV .Q10H [place] Rx#:[id number] Dextrose 5% 1,000 ml @ 60 924 mls/hr IV .[id number] [facility] [place] Rx#:[id number] Vancomycin HCl 1.25 gm In 250 250 250 Sodium Chloride 0.9% 250 ml @ 165 mls/hr IV Q12H [facility] [place] Rx#:[id number] Tube Feeding 1200 600 TPN/PPN 600 Other 150 Output: Urine 3900 650 1650 Other: # Bowel Movements 4 1 3 Stool Characteristics Liquid Liquid Liquid Brown Brown Brown Active Medications: Current Medications Albuterol/Ipratropium (Duoneb Neb) 3 ml HHN Q4HR [place] Stop: 08/06/17 19:59 Last Admin: 06/12/17 16:07 Dose: 3 ml Albuterol/Ipratropium (Duoneb Neb) 3 ml HHN Q4HRT [facility] [place] Stop: 08/07/17 18:59 Last Admin: 06/12/17 03:44 Dose: 3 ml Amlodipine Besylate (Norvasc) 5 mg GT Q12HR [facility] [place] Stop: 08/06/17 20:59 Last Admin: 06/12/17 09:16 Dose: Not Given Artificial Tears (Artificial Tears Ophth Soln) 2 drop EACH EYE Q6H PRN PRN Reason: eye dryness Stop: 08/06/17 20:54 Last Admin: 06/12/17 01:03 Dose: 2 drop Atorvastatin Calcium (Lipitor) 10 mg GT HS [place] PRN Reason: Protocol Stop: 08/06/17 20:59 Last Admin: 06/11/17 20:06 Dose: 10 mg Bisacodyl (Dulcolax 10 Mg Supp) 10 mg RC DAILY PRN PRN Reason: Constipation Stop: 08/06/17 19:17 Budesonide (Pulmicort) 0.5 mg HHN BIDRT [place] Stop: 08/07/17 18:59 Last Admin: 06/12/17 08:03 Dose: 0.5 mg Calcium/Vitamin D (Oscal W/Vitamin D) 1 tab GT DAILY [place] Stop: 08/07/17 08:59 Last Admin: 06/12/17 09:14 Dose: 1 tab Chlorhexidine Gluconate (Peridex) 15 ml MM 0800,1999 [place] Stop: 08/08/17 19:59 Last Admin: 06/12/17 07:58 Dose: 15 ml Clonazepam (Klonopin) 2 mg GT DAILY [place] Stop: 08/07/17 08:59 Last Admin: 06/12/17 09:14 Dose: 2 mg Folic Acid (Folate) 2.5 mg GT DAILY [place] Stop: 08/07/17 08:59 Last Admin: 06/12/17 09:14 Dose: 2.5 mg Hydralazine HCl (Apresoline) 50 mg GT Q8HR [place] Stop: 08/06/17 20:59 Last Admin: 06/12/17 13:00 Dose: Not Given Cefepime HCl 1 gm/ Dextrose 50 mls @ 100 mls/hr IV Q8H [place] Stop: 08/07/17 00:59 Last Infusion: 06/12/17 17:25 Dose: Infused Vancomycin HCl 1.25 gm/ Sodium (Chloride) 250 mls @ 165 mls/hr IV Q12H [place] Stop: 08/07/17 09:59 Last Infusion: 06/12/17 12:00 Dose: Infused Dextrose (D5w) 1,000 mls @ 60 mls/hr IV .[id number] [facility] Stop: 08/07/17 09:37 Last Admin: 06/12/17 06:45 Dose: 60 mls/hr Colistimethate Sodium 75 mg/ (Sodium Chloride) 100 mls @ 100 mls/hr IV Q12HR [facility] Stop: 08/10/17 20:59 Last Infusion: 06/12/17 10:15 Dose: Infused Lactobacillus Rhamnosus (Culturelle) 1 each PO DAILY [place] Stop: 08/08/17 08:59 Last Admin: 06/12/17 09:15 Dose: 1 each Lactulose (Cephulac) 30 gm GT Q6HR [place] Stop: 08/08/17 17:59 Last Admin: 06/12/17 17:59 Dose: 30 gm Levetiracetam (Keppra) 1,000 mg GT Q8HR [place] Stop: 08/06/17 20:59 Last Admin: 06/12/17 13:30 Dose: 1,000 mg Magnesium Hydroxide (Milk Of Magnesia) 30 ml GT HS PRN PRN Reason: Constipation Stop: 08/06/17 19:17 Magnesium Oxide (Mag-Oxide) 400 mg GT DAILY [place] Stop: 08/07/17 08:59 Last Admin: 06/12/17 09:15 Dose: 400 mg Metoprolol Tartrate (Lopressor) 100 mg GT Q12HR [place] Stop: 08/06/17 20:59 Last Admin: 06/12/17 09:16 Dose: Not Given Miscellaneous (Vancomycin Iv Per Pharmacy) 1 ea PRN PRN PRN Reason: PROTOCOL Stop: 08/07/17 07:59 Miscellaneous (Probiotic Screen) 1 ea PRN PRN PRN Reason: PROTOCOL Stop: 08/07/17 10:42 Phytonadione (Mephyton) 10 mg GT DAILY [place] Stop: 08/07/17 19:59 Last Admin: 06/12/17 09:17 Dose: 10 mg Potassium Chloride (Potassium Chloride Elixir) 20 meq GT BID [place] Stop: 08/07/17 08:59 Last Admin: 06/12/17 16:56 Dose: 20 meq Propranolol HCl (Inderal) 20 mg GT TID [place] Stop: 08/06/17 20:59 Last Admin: 06/12/17 14:00 Dose: Not Given Pyridoxine HCl (Vitamin B6) 100 mg GT DAILY [place] Stop: 08/07/17 08:59 Last Admin: 06/12/17 09:15 Dose: 100 mg Rifaximin (Xifaxan) 500 mg PO BID [place] Stop: 08/07/17 16:59 Last Admin: 06/12/17 16:56 Dose: 500 mg Sodium Phosphate (Fleet Enema) 135 ml RC Q48H PRN PRN Reason: IF DULCOLAX IS INEFFECTIVE Stop: 08/06/17 19:17 Thiamine HCl (Vitamin B1) 100 mg GT DAILY [place] Stop: 08/07/17 08:59 Last Admin: 06/12/17 09:14 Dose: 100 mg Valproate Sodium (Depakene) 500 mg GT TID [place] PRN Reason: Protocol Stop: 08/06/17 20:59 Last Admin: 06/12/17 14:00 Dose: 500 mg General: Alert, No acute distress HEENT: Atraumatic, PERRLA, EOMI, Mucous membr. moist/pink Neck: Supple, +2 carotid pulse wo bruit Cardiovascular: Regular rate, Normal S1, Normal S2 Lungs: Clear to auscultation Abdomen: Bowel sounds, Soft Extremities: no Edema Neurological: Sensation intact Skin: no Rash Psych/Mental Status: Mood NL - Procedures Procedures: Procedures Procedure Code Date RESPIRATORY VENTILATION, GREATER THAN 96 CONSECUTIVE HOURS [id number] 06/07/17 Assessment/Plan - Problem List Patient Problems: All Active Problems ELEVATED NA+, AND BUN LEVELS (Acute) - Assessment Assessment: Hypernatremia RFVD Sepsis etio? CLD Thrombocytopenia Anemia of CD Hypokalemia - Plan Plan: Lab - Result Diagrams 06/09/17 09:30 06/09/17 05:07 Current Medications Albuterol/Ipratropium (Duoneb Neb) 3 ml HHN Q4HR [place] Stop: 08/06/17 19:59 Last Admin: 06/09/17 11:08 Dose: 3 ml Albuterol/Ipratropium (Duoneb Neb) 3 ml HHN Q4HRT [place] Stop: 08/07/17 18:59 Amlodipine Besylate (Norvasc) 5 mg GT Q12HR [place] Stop: 08/06/17 20:59 Last Admin: 06/09/17 10:05 Dose: 5 mg Artificial Tears (Artificial Tears Ophth Soln) 2 drop EACH EYE Q6H PRN PRN Reason: eye dryness Stop: 08/06/17 20:54 Atorvastatin Calcium (Lipitor) 10 mg GT HS [place] PRN Reason: Protocol Stop: 08/06/17 20:59 Last Admin: 06/08/17 21:32 Dose: 10 mg Bisacodyl (Dulcolax 10 Mg Supp) 10 mg RC DAILY PRN PRN Reason: Constipation Stop: 08/06/17 19:17 Budesonide (Pulmicort) 0.5 mg HHN BIDRT [place] Stop: 08/07/17 18:59 Last Admin: 06/08/17 19:10 Dose: 0.5 mg Calcium/Vitamin D (Oscal W/Vitamin D) 1 tab GT DAILY [place] Stop: 08/07/17 08:59 Last Admin: 06/09/17 10:05 Dose: 1 tab Chlorhexidine Gluconate (Peridex) 15 ml MM Q12HR [facility] Stop: 08/06/17 20:59 Last Admin: 06/09/17 09:00 Dose: 15 ml Clonazepam (Klonopin) 2 mg GT DAILY [place] Stop: 08/07/17 08:59 Last Admin: 06/09/17 10:05 Dose: 2 mg Docusate Sodium (Colace) 100 mg GT BID [place] Stop: 08/06/17 20:59 Last Admin: 06/09/17 09:00 Dose: Not Given Ferrous Sulfate (Iron) 300 mg GT BID [place] Stop: 08/06/17 20:59 Last Admin: 06/09/17 10:03 Dose: 300 mg Folic Acid (Folate) 2.5 mg GT DAILY [place] Stop: 08/07/17 08:59 Last Admin: 06/09/17 10:05 Dose: 2.5 mg Hydralazine HCl (Apresoline) 50 mg GT Q8HR [place] Stop: 08/06/17 20:59 Last Admin: 06/09/17 12:56 Dose: 50 mg Cefepime HCl 1 gm/ Dextrose 50 mls @ 100 mls/hr IV Q8H [place] Stop: 08/07/17 00:59 Last Infusion: 06/09/17 09:30 Dose: Infused Vancomycin HCl 1.25 gm/ Sodium (Chloride) 250 mls @ 165 mls/hr IV Q12H [place] Stop: 08/07/17 09:59 Last Infusion: 06/09/17 11:31 Dose: Infused Dextrose (D5w) 1,000 mls @ 150 mls/hr IV .Q6H40M [place] Stop: 08/07/17 09:37 Last Admin: 06/09/17 07:33 Dose: 150 mls/hr Lactobacillus Rhamnosus (Culturelle) 1 each PO DAILY [facility] Stop: 08/08/17 08:59 Last Admin: 06/09/17 10:04 Dose: 1 each Lactulose (Cephulac) 30 gm GT Q8HR [place] Stop: 08/06/17 20:59 Last Admin: 06/09/17 12:56 Dose: Not Given Levetiracetam (Keppra) 1,000 mg GT Q8HR [facility] Stop: 08/06/17 20:59 Last Admin: 06/09/17 12:56 Dose: 1,000 mg Magnesium Hydroxide (Milk Of Magnesia) 30 ml GT HS PRN PRN Reason: Constipation Stop: 08/06/17 19:17 Magnesium Oxide (Mag-Oxide) 400 mg GT DAILY [place] Stop: 08/07/17 08:59 Last Admin: 06/09/17 10:04 Dose: 400 mg Metoprolol Tartrate (Lopressor) 100 mg GT Q12HR [place] Stop: 08/06/17 20:59 Last Admin: 06/09/17 10:04 Dose: 100 mg Miscellaneous (Vancomycin Iv Per Pharmacy) 1 ea PRN PRN PRN Reason: PROTOCOL Stop: 08/07/17 07:59 Miscellaneous (Probiotic Screen) 1 [facility] PRN PRN PRN Reason: PROTOCOL Stop: 08/07/17 10:42 Phytonadione (Mephyton) 10 mg GT DAILY [place] Stop: 08/07/17 19:59 Last Admin: 06/09/17 10:06 Dose: 10 mg Potassium Chloride (Potassium Chloride Elixir) 20 meq GT BID [place] Stop: 08/07/17 08:59 Last Admin: 06/09/17 11:30 Dose: 20 meq Propranolol HCl (Inderal) 20 mg GT TID [place] Stop: 08/06/17 20:59 Last Admin: 06/09/17 10:03 Dose: 20 mg Pyridoxine HCl (Vitamin B6) 100 mg GT DAILY [place] Stop: 08/07/17 08:59 Last Admin: 06/09/17 10:05 Dose: 100 mg Rifaximin (Xifaxan) 500 mg PO BID [place] Stop: 08/07/17 16:59 Last Admin: 06/09/17 10:06 Dose: 500 mg Sodium Phosphate (Fleet Enema) 135 ml RC Q48H PRN PRN Reason: IF DULCOLAX IS INEFFECTIVE Stop: 08/06/17 19:17 Thiamine HCl (Vitamin B1) 100 mg GT DAILY [facility] Stop: 08/07/17 08:59 Last Admin: 06/09/17 10:05 Dose: 100 mg Valproate Sodium (Depakene) 500 mg GT TID [place] PRN Reason: Protocol Stop: 08/06/17 20:59 Last Admin: 06/09/17 10:03 Dose: 500 mg CXR: CM, B/L ATx electrolytes has improved continue D5W but decrease rate F/U electrolytes Lab - Result Diagrams 06/10/17 04:40 06/10/17 04:40 Nutritional Asmnt/Malnutr-PDOC - Dietary Evaluation Malnutrition Findings (Please click <Entered> for more info): Nutritional Asmnt/Malnutrition Start: 06/09/17 11: 00 Text: Status: Complete Freq: Document 06/09/17 13:09 [facility] (Rec: 06/09/17 13:27 [facility] [id number]) Nutritional Asmnt/Malnutrition Patient General Information Nutritional Screening High Risk Screening Diagnosis Sepsis, UTI, right and left lower lobe infiltrate, pneumonia Pertinent Medical Hx/Surgical Hx Alcohol problem, liver disease , cirrhosis of the liver, hepatic comas, seizures, trachestomy, PEG, asthma, COPD Subjective Information Pt is a 52-year-old male from [facility] admitted with chief complaint of shortness of breath and falling oxygen saturation. Pt has tracheostomy to ventilator. Pt was unable to provide nutritional hx. Pt appears well nourished with no signs of muscle or fat depletion. Order to resume tube feeding; bag of Novosource Renal at bedside not yet started. Abdomen Ultrasound 06/09 notes some abdominal ascites. Current Diet Order/ Nutrition Support Novosource Renal at 55 ml/hr = 2640kcals, 120gm protein, 946ml free water Patient / S.O Can't verbalize diet edu Pertinent Medications Oscal with Vitamin D, Cefepime , D5w, Iron, Folate, Culturelle, MagOxide, Mephyton , KCl Elixir, Vitamin B6, Vitamin B1, Depakene, Vancomycin Pertinent Labs (06/09) Na 148H (improving), K 3L, Alkaline Phosphatase 171H, Ammonia 64H, Albumin 3.3L Nutritional Hx/Data Height 1.68 m Height (Calculated Centimeters) 167.6 Current Weight (lbs) 76.657 kg Weight (Calculated Kilograms) 76.7 Weight (Calculated Grams) 12924.1 Usual body Weight (lbs) 168 % Usual Body Weight 100 [place] Body Weight 142 % [place] Body Weight 119 Recent Weight Change No Weight Status Overweight GI Symptoms GI Symptoms Diarrhea Difficult in: Chewing Swallowing Food Allergies No Usual diet at home Nepro 1.8 (237 ml) QID 0900, 1300, 1700, 2100, sugar free ProStat 30 ml Skin Integrity/Comment: Vitor 12. Skin intact. Estimated Nutritional Goals BEE in Kcals: Using Current wt Calories/Kcals/Kg Based on current wt 76.8 kg with consideration of sepsis: Kcals Calculated 5107-9158 kcals/day (27-32 kcals/kg) to prevent wt gain with overwt status Protein: Using Current wt Protein g/kg: Based on current wt 76.8 kg with consideration of sepsis: Protein Calculated 92-115 gm/day (1.2-1.5 gm/kg) Fluid: ml Per MD/DO due to abnormal electrolytes Nutritional Problem 1. Problem Problem Excessive intake from enteral nutrition related to Etiology increased energy intake from calorically dense tube feeding formula as evidenced by Signs/Symptoms: current tube feeding meets 104 % of higher end of estimated calories needs. Malnutrition Alert Protein-Calorie Malnutrition N/A Is there a minimum of two criteria No selected? Query Text:Check all the applicable criteria. A minimum of two criteria are recommended for diagnosis of either severe or non-severe malnutrition. Malnutrition Related to Morbid Obesity Malnutrition related to morbid obesity No Intervention/Recommendation Recommendations by RD Decrease Calorie Intake Comments 1. Recommend decrease tube feeding Novosource Renal at goal rate of 50 ml/hr to provide 2400 kcals, 109 gm protein, and 860 ml free water per day. Monitor renal labs to prioritize protein needs. Expected Outcomes/Goals Expected Outcomes/Goals Provide pt with 100% of estimated nutritional needs. Physician Parameters for PEM Serum Albumin (g/dl) 3.1 - 3.4 (Mild)
[2017-06-12] MEDS: Atorvastatin Calcium 10 MG TAB GT SCH (21:00)
--- NOTE | 2017-06-12 22:22 | Progress Notes ---
DATE: 06/12/2017 PROBLEM LIST: 1. [id number] respiratory failure. 2. Bilateral pneumonia with effusion. 3. History of hepatic encephalopathy. 4. Electrolyte imbalance. The patient is awake, looks from side to side. No respiratory distress. PHYSICAL EXAMINATION: VITAL SIGNS: Temperature is 96.8, blood pressure is 99/59, saturation 100% on 40%. NECK: Veins not visualized. CHEST: Diminished air entry with occasional secretory noise. LABORATORY DATA: The patient's culture shows E. coli, ESBL as well as Pseudomonas aeruginosa and Providencia rettgeri. White count is 3.6; hemoglobin 8.2; platelet is 55, platelet is decreased. The patient's ammonia has come down to 68. Electrolytes are okay. ASSESSMENT: The patient clinically slowly improving respiratory-franklin, pneumonia, effusion; hepatic encephalopathy improving. PLANS AND SUGGESTIONS: We will go and continue current respiratory care, etc. We will follow through other chest x-ray, lab in the next few days' time and go from there. JOB# [id number]
[2017-06-13] MEDS: Albuterol/Ipratropium Neb 3 ML AERS HHN SCH ×6 (02:45→23:33)
[2017-06-13] MEDS: Lactulose 10 Gm/15 mL 30mL UDC GT SCH ×3 (05:21→18:00)
[2017-06-13] MEDS: Levetiracetam 500 mg/5mL 5mL UDC GT SCH ×3 (06:58→21:46)
[2017-06-13] MEDS: Budesonide 0.5 Mg/2 mL Ud HHN SCH ×2 (07:49→19:39)
[2017-06-13] MEDS: Chlorhexidine Gluconate 0.12% 15mL Mouthwash MM SCH ×2 (07:50→21:04)
[2017-06-13 08:03] LABS: ANION GAP 7.3 (7.0-16.0); BUN - UREA NITROGEN 9 mg/dL (7-25); BUN/CREATININE RATIO 22.5; CALCIUM SERUM 8.7 mg/dL (8.6-10.3); CARBON DIOXIDE 26.1 mEq/L (21.0-31.0); CHLORIDE 105 mEq/L (98-107); CREATININE - SERUM 0.4 mg/dL (0.7-1.3); GLUCOSE 122 mg/dL (70-105); POTASSIUM SERUM 3.4 mEq/L (3.5-5.1); SODIUM SERUM 135 mEq/L (136-145)
[2017-06-13 08:10] LABS: VANCOMYCIN TROUGH 16.1 ug/mL (10-20)
[2017-06-13 08:22] LABS: HEMATOCRIT 25.6 % (39.0-49.0); HEMOGLOBIN 8.9 gm/dL (13.2-17.3); MEAN CELL VOLUME 95.6 fl (80-99); MEAN CORPUSCULAR HEMOGLOBIN 33.4 pg (26.0-30.0); MEAN CORPUSCULAR HGB CONC 34.9 pg (28.0-36.0); MEAN PLATELET VOLUME 9.7 fl; RED BLOOD COUNT 2.68 Mil/cmm (4.30-5.70); WHITE BLOOD COUNT 4.1 Th/cmm (4.8-10.8)
--- NOTE | 2017-06-13 08:50 | General Progress Note ---
Subjective - Review of Systems Events since last encounter: patient awake, alert no distress Subjective: on vent, afebrile nad Objective - Results Result Diagrams: 06/12/17 07:15 06/13/17 07:20 Recent Labs: Laboratory Last Values WBC 3.6 Th/cmm (4.8-10.8) L 06/12/17 07:15 RBC 2.50 Mil/cmm (4.30-5.70) L 06/12/17 07:15 Hgb 8.2 gm/dL (13.2-17.3) L 06/12/17 07:15 Hct 24.1 % (39.0-49.0) L 06/12/17 07:15 MCV 96.2 fl (80-99) 06/12/17 07:15 MCH 32.7 pg (26.0-30.0) H 06/12/17 07:15 MCHC Differential 34.0 pg (28.0-36.0) 06/12/17 07:15 RDW 15.5 % (11.5-20.0) 06/12/17 07:15 Plt Count 48 Th/cmm (150-400) L D 06/12/17 07:15 MPV 9.8 fl 06/12/17 07:15 Neutrophils % 64.8 % (40.0-80.0) 06/10/17 04:40 Band Neutrophils % 4 % (0-10) 06/12/17 07:15 Lymphocytes % 18.4 % (20.0-50.0) L 06/10/17 04:40 Monocytes % 12.3 % (2.0-10.0) H 06/10/17 04:40 Eosinophils % 4.2 % (0.0-5.0) 06/10/17 04:40 Basophils % 0.3 % (0.0-2.0) 06/10/17 04:40 Neutrophils (Manual) 55 % (40-80) 06/12/17 07:15 Lymphocytes 21 % (20-50) 06/12/17 07:15 Monocytes 14 % (2-10) H 06/12/17 07:15 Eosinophils 6 % (0-5) H 06/12/17 07:15 Metamyelocytes 1 % (0-0) H 06/11/17 05:00 Nucleated RBCs 1.0 % (0-0) H 06/08/17 04:59 Platelet Estimate DECREASED PLATELETS (NORMAL) 06/12/17 07:15 Platelet Morphology NORMAL (NORMAL) 06/12/17 07:15 Anisocytosis 1+ 06/08/17 04:59 RBC Morph Micro Appear NORMAL (NORMAL) 06/12/17 07:15 Specimen Source ARTERIAL 06/10/17 08:43 Sample Site Left Radial 06/10/17 08:43 pH 7.46 (7.35-7.45) H 06/10/17 08:43 pCO2 36.0 mmHg (35.0-45.0) 06/10/17 08:43 pO2 92.0 mmHg (80.0-100.0) 06/10/17 08:43 HCO3 26.4 mEq/L (20.0-26.0) H 06/10/17 08:43 Base Excess 1.9 mEq/L (-3.0-3.0) 06/10/17 08:43 O2 Saturation 98.0 % (92.0-100.0) 06/10/17 08:43 Jose L Test POSITIVE 06/10/17 08:43 Vent Rate 12 06/10/17 08:43 Inspired O2 40 06/10/17 08:43 Tidal Volume 500 06/10/17 08:43 PEEP 5 06/10/17 08:43 Pressure (ins/psv/peep) N/A 06/10/17 08:43 Critical Value SAURABH 06/10/17 08:43 Sodium 135 mEq/L (136-145) L 06/13/17 07:20 Potassium 3.4 mEq/L (3.5-5.1) L 06/13/17 07:20 Chloride 105 mEq/L (98-107) 06/13/17 07:20 Carbon Dioxide 26.1 mEq/L (21.0-31.0) 06/13/17 07:20 Anion Gap 7.3 (7.0-16.0) 06/13/17 07:20 BUN 9 mg/dL (7-25) 06/13/17 07:20 Creatinine 0.4 mg/dL (0.7-1.3) L 06/13/17 07:20 Est GFR ( Amer) > 60.0 ml/min (>90) 06/13/17 07:20 Est GFR (Non-Af Amer) > 60.0 ml/min 06/13/17 07:20 BUN/Creatinine Ratio 22.5 06/13/17 07:20 Glucose 122 mg/dL (70-105) H 06/13/17 07:20 Plasma/Ser Osmolality 313 mOsmol/kg (275-295) H 06/09/17 05:07 Whole Bld Lactic Acid 1.51 mmol/L (0.60-1.99) 06/08/17 04:59 Calcium 8.7 mg/dL (8.6-10.3) 06/13/17 07:20 Phosphorus 2.7 mg/dL (2.5-5.0) 06/08/17 04:59 Magnesium 2.2 mg/dL (1.9-2.7) 06/09/17 05:07 Iron 71 ug/dL (38-169) 06/08/17 04:59 TIBC 173 ug/dL (250-450) L 06/08/17 04:59 Iron Saturation 41 % (15-55) 06/08/17 04:59 Unsaturated IBC 102 ug/dL (111-343) L 06/08/17 04:59 Ferritin 303 ng/mL (30-400) 06/08/17 04:59 Total Bilirubin 0.8 mg/dL (0.3-1.0) 06/09/17 05:07 Direct Bilirubin 0.40 mg/dL (0.0-0.2) H 06/09/17 05:07 AST 34 U/L (13-39) 06/09/17 05:07 ALT 20 U/L (7-52) 06/09/17 05:07 Alkaline Phosphatase 171 U/L (34-104) H 06/09/17 05:07 Ammonia 68 umol/L (16-53) H 06/12/17 07:15 Troponin I 0.01 ng/mL (0.01-0.05) 06/07/17 13:28 B-Natriuretic Peptide 91.8 pg/mL (5.0-100.0) 06/07/17 13:28 Total Protein 6.8 gm/dL (6.0-8.3) 06/09/17 05:07 Albumin 2.3 gm/dL (4.2-5.5) L 06/09/17 05:07 Globulin 4.5 gm/dL 06/09/17 05:07 Albumin/Globulin Ratio 0.5 (1.0-1.8) L 06/09/17 05:07 Vitamin B12 >1999 pg/mL (211-946) H 06/08/17 04:59 Folic Acid >20.0 ng/mL (>3.0) 06/08/17 04:59 Urine Source RANDOM 06/07/17 13:25 Urine Color NISA 06/07/17 13:25 Urine Clarity CLOUDY (CLEAR) 06/07/17 13:25 Urine pH 5.5 (4.6 - 8.0) 06/07/17 13:25 Ur Specific [place] 1.020 (1.005-1.030) 06/07/17 13:25 Urine Protein >=300 mg/dL (NEGATIVE) 06/07/17 13:25 Urine Glucose (UA) NEGATIVE mg/dL (NEGATIVE) 06/07/17 13:25 Urine Ketones 15 mg/dL (NEGATIVE) H 06/07/17 13:25 Urine Blood LARGE (NEGATIVE) H 06/07/17 13:25 Urine Nitrate POSITIVE (NEGATIVE) H 06/07/17 13:25 Urine Bilirubin MODERATE (NEGATIVE) H 06/07/17 13:25 Urine Urobilinogen 2.0 E.U./dL (0.2 - 1.0) 06/07/17 13:25 Ur Leukocyte Esterase MODERATE (NEGATIVE) H 06/07/17 13:25 Urine RBC >100 /hpf (0-5) H 06/07/17 13:25 Urine WBC 2-5 /hpf (0-5) H 06/07/17 13:25 Ur Epithelial Cells OCCASIONAL /lpf (FEW) 06/07/17 13:25 Urine Bacteria FEW /hpf (NONE SEEN) 06/07/17 13:25 Urine Osmolality 776 mOsmol/kg 06/09/17 05:53 Ur Random Sodium 119 mmol/L 06/08/17 18:16 Stool Occult Blood NEGATIVE (NEGATIVE) 06/12/17 17:30 Vancomycin Trough 16.1 ug/mL (10-20) 06/13/17 07:20 Blood Type O POSITIVE 06/09/17 09:30 Antibody Screen NEGATIVE 06/09/17 09:30 - Physical Exam Vitals and I&O: Vital Signs Temp 97.5 F 06/13/17 04:00 Pulse 80 06/13/17 07:49 Resp 19 06/13/17 06:00 BP 111/69 06/13/17 06:55 Pulse Ox 100 06/13/17 07:49 Intake & Output 06/12/17 06/13/17 06/13/17 18:59 06:59 18:59 Intake Total 1200 1000 Output Total 1650 850 Balance -450 150 Weight (lbs) 83.007 kg 82.599 kg Intake: Intake, IV Amount 450 400 Cefepime 1 gm In Dextrose 100 50 5% 50 ml @ 100 mls/hr IV Q8H [facility] Rx#:[id number] Colistimethate 75 mg In 100 100 Sodium Chloride 0.9% 100 ml @ 100 mls/hr IV Q12HR [facility] Rx#:[id number] Vancomycin HCl 1.25 gm In 250 250 Sodium Chloride 0.9% 250 ml @ 165 mls/hr IV Q12H [facility] Rx#:[id number] Tube Feeding 600 600 Other 150 Output: Urine 1650 850 Other: # Bowel Movements 3 4 Stool Characteristics Liquid Liquid Brown Brown Active Medications: Current Medications Albuterol/Ipratropium (Duoneb Neb) 3 ml HHN Q4HR [place] Stop: 08/06/17 19:59 Last Admin: 06/13/17 07:49 Dose: 3 ml Albuterol/Ipratropium (Duoneb Neb) 3 ml HHN Q4HRT [place] Stop: 08/07/17 18:59 Last Admin: 06/13/17 02:45 Dose: 3 ml Amlodipine Besylate (Norvasc) 5 mg GT Q12HR [place] Stop: 08/06/17 20:59 Last Admin: 06/13/17 00:57 Dose: Not Given Artificial Tears (Artificial Tears Ophth Soln) 2 drop EACH EYE Q6H PRN PRN Reason: eye dryness Stop: 08/06/17 20:54 Last Admin: 06/12/17 01:03 Dose: 2 drop Atorvastatin Calcium (Lipitor) 10 mg GT HS [place] PRN Reason: Protocol Stop: 08/06/17 20:59 Last Admin: 06/12/17 21:00 Dose: 10 mg Bisacodyl (Dulcolax 10 Mg Supp) 10 mg RC DAILY PRN PRN Reason: Constipation Stop: 08/06/17 19:17 Budesonide (Pulmicort) 0.5 mg HHN BIDRT [place] Stop: 08/07/17 18:59 Last Admin: 06/13/17 07:49 Dose: 0.5 mg Calcium/Vitamin D (Oscal W/Vitamin D) 1 tab GT DAILY [place] Stop: 08/07/17 08:59 Last Admin: 06/12/17 09:14 Dose: 1 tab Chlorhexidine Gluconate (Peridex) 15 ml MM 0800,2000 [place] Stop: 08/08/17 19:59 Last Admin: 06/13/17 07:50 Dose: 15 ml Clonazepam (Klonopin) 2 mg GT DAILY [place] Stop: 08/07/17 08:59 Last Admin: 06/12/17 09:14 Dose: 2 mg Folic Acid (Folate) 2.5 mg GT DAILY [place] Stop: 08/07/17 08:59 Last Admin: 06/12/17 09:14 Dose: 2.5 mg Hydralazine HCl (Apresoline) 50 mg GT Q8HR [place] Stop: 08/06/17 20:59 Last Admin: 06/13/17 06:55 Dose: Not Given Cefepime HCl 1 gm/ Dextrose 50 mls @ 100 mls/hr IV Q8H [place] Stop: 08/07/17 00:59 Last Admin: 06/13/17 08:24 Dose: 100 mls/hr Vancomycin HCl 1.25 gm/ Sodium (Chloride) 250 mls @ 165 mls/hr IV Q12H [place] Stop: 08/07/17 09:59 Last Infusion: 06/13/17 01:01 Dose: Infused Dextrose (D5w) 1,000 mls @ 60 mls/hr IV .[id number] [place] Stop: 08/07/17 09:37 Last Admin: 06/12/17 06:45 Dose: 60 mls/hr Colistimethate Sodium 75 mg/ (Sodium Chloride) 100 mls @ 100 mls/hr IV Q12HR [place] Stop: 08/10/17 20:59 Last Infusion: 06/12/17 22:00 Dose: Infused Lactobacillus Rhamnosus (Culturelle) 1 each PO DAILY [place] Stop: 08/08/17 08:59 Last Admin: 06/12/17 09:15 Dose: 1 each Lactulose (Cephulac) 30 gm GT Q6HR [facility] Stop: 08/08/17 17:59 Last Admin: 06/13/17 05:21 Dose: 30 gm Levetiracetam (Keppra) 1,000 mg GT Q8HR [facility] Stop: 08/06/17 20:59 Last Admin: 06/13/17 06:58 Dose: 1,000 mg Magnesium Hydroxide (Milk Of Magnesia) 30 ml GT HS PRN PRN Reason: Constipation Stop: 08/06/17 19:17 Magnesium Oxide (Mag-Oxide) 400 mg GT DAILY [place] Stop: 08/07/17 08:59 Last Admin: 06/12/17 09:15 Dose: 400 mg Metoprolol Tartrate (Lopressor) 100 mg GT Q12HR [facility] Stop: 08/06/17 20:59 Last Admin: 06/13/17 00:58 Dose: Not Given Miscellaneous (Vancomycin Iv Per Pharmacy) 1 ea PRN PRN PRN Reason: PROTOCOL Stop: 08/07/17 07:59 Miscellaneous (Probiotic Screen) 1 ea PRN PRN PRN Reason: PROTOCOL Stop: 08/07/17 10:42 Phytonadione (Mephyton) 10 mg GT DAILY [facility] Stop: 08/07/17 19:59 Last Admin: 06/12/17 09:17 Dose: 10 mg Potassium Chloride (Potassium Chloride Elixir) 20 meq GT BID [facility] Stop: 08/07/17 08:59 Last Admin: 06/12/17 16:56 Dose: 20 meq Propranolol HCl (Inderal) 20 mg GT TID [facility] Stop: 08/06/17 20:59 Last Admin: 06/13/17 00:59 Dose: Not Given Pyridoxine HCl (Vitamin B6) 100 mg GT DAILY [facility] Stop: 08/07/17 08:59 Last Admin: 06/12/17 09:15 Dose: 100 mg Rifaximin (Xifaxan) 500 mg PO BID [facility] Stop: 08/07/17 16:59 Last Admin: 06/12/17 16:56 Dose: 500 mg Sodium Phosphate (Fleet Enema) 135 ml RC Q48H PRN PRN Reason: IF DULCOLAX IS INEFFECTIVE Stop: 08/06/17 19:17 Thiamine HCl (Vitamin B1) 100 mg GT DAILY [facility] Stop: 08/07/17 08:59 Last Admin: 06/12/17 09:14 Dose: 100 mg Valproate Sodium (Depakene) 500 mg GT TID [place] PRN Reason: Protocol Stop: 08/06/17 20:59 Last Admin: 06/12/17 21:00 Dose: 500 mg General: Alert, No acute distress HEENT: Atraumatic, PERRLA, EOMI, Mucous membr. moist/pink Neck: Supple, +2 carotid pulse wo bruit Cardiovascular: Regular rate, Normal S1, Normal S2 Lungs: Clear to auscultation Abdomen: Bowel sounds, Soft Extremities: no Edema Neurological: Sensation intact Skin: no Rash Psych/Mental Status: Mood NL - Procedures Procedures: Procedures Procedure Code Date RESPIRATORY VENTILATION, GREATER THAN 96 CONSECUTIVE HOURS [id number] 06/07/17 Assessment/Plan - Problem List Patient Problems: All Active Problems ELEVATED NA+, AND BUN LEVELS (Acute) - Assessment Assessment: s/p respiratory failure pnumonia s/p trch and peg trmors h/o alcoholism h/o sizures - Plan Plan: iv antibiotics vent support continue current plan of care Nutritional Asmnt/Malnutr-PDOC - Dietary Evaluation Malnutrition Findings (Please click <Entered> for more info): Nutritional Asmnt/Malnutrition Start: 06/09/17 11: 00 Text: Status: Complete Freq: Document 06/09/17 13:09 [facility] (Rec: 06/09/17 13:27 [facility] [id number]) Nutritional Asmnt/Malnutrition Patient General Information Nutritional Screening High Risk Screening Diagnosis Sepsis, UTI, right and left lower lobe infiltrate, pneumonia Pertinent Medical Hx/Surgical Hx Alcohol problem, liver disease , cirrhosis of the liver, hepatic comas, seizures, trachestomy, PEG, asthma, COPD Subjective Information Pt is a 52-year-old male from [facility] admitted with chief complaint of shortness of breath and falling oxygen saturation. Pt has tracheostomy to ventilator. Pt was unable to provide nutritional hx. Pt appears well nourished with no signs of muscle or fat depletion. Order to resume tube feeding; bag of Novosource Renal at bedside not yet started. Abdomen Ultrasound 06/09 notes some abdominal ascites. Current Diet Order/ Nutrition Support Novosource Renal at 55 ml/hr = 2640kcals, 120gm protein, 946ml free water Patient / S.O Can't verbalize diet edu Pertinent Medications Oscal with Vitamin D, Cefepime , D5w, Iron, Folate, Culturelle, MagOxide, Mephyton , KCl Elixir, Vitamin B6, Vitamin B1, Depakene, Vancomycin Pertinent Labs (06/09) Na 148H (improving), K 3L, Alkaline Phosphatase 171H, Ammonia 64H, Albumin 3.3L Nutritional Hx/Data Height 1.68 m Height (Calculated Centimeters) 167.6 Current Weight (lbs) 76.657 kg Weight (Calculated Kilograms) 76.7 Weight (Calculated Grams) 41641.1 Usual body Weight (lbs) 168 % Usual Body Weight 100 [place] Body Weight 142 % [place]man Body Weight 119 Recent Weight Change No Weight Status Overweight GI Symptoms GI Symptoms Diarrhea Difficult in: Chewing Swallowing Food Allergies No Usual diet at home Nepro 1.8 (237 ml) QID 0900, 1300, 1700, 2100, sugar free ProStat 30 ml Skin Integrity/Comment: Vitor Thomas. Skin intact. Estimated Nutritional Goals BEE in Kcals: Using Current wt Calories/Kcals/Kg Based on current wt 76.8 kg with consideration of sepsis: Kcals Calculated 6334-9292 kcals/day (27-32 kcals/kg) to prevent wt gain with overwt status Protein: Using Current wt Protein g/kg: Based on current wt 76.8 kg with consideration of sepsis: Protein Calculated 92-115 gm/day (1.2-1.5 gm/kg) Fluid: ml Per MD/DO due to abnormal electrolytes Nutritional Problem 1. Problem Problem Excessive intake from enteral nutrition related to Etiology increased energy intake from calorically dense tube feeding formula as evidenced by Signs/Symptoms: current tube feeding meets 104 % of higher end of estimated calories needs. Malnutrition Alert Protein-Calorie Malnutrition N/A Is there a minimum of two criteria No selected? Query Text:Check all the applicable criteria. A minimum of two criteria are recommended for diagnosis of either severe or non-severe malnutrition. Malnutrition Related to Morbid Obesity Malnutrition related to morbid obesity No Intervention/Recommendation Recommendations by RD Decrease Calorie Intake Comments 1. Recommend decrease tube feeding Novosource Renal at goal rate of 50 ml/hr to provide 2400 kcals, 109 gm protein, and 860 ml free water per day. Monitor renal labs to prioritize protein needs. Expected Outcomes/Goals Expected Outcomes/Goals Provide pt with 100% of estimated nutritional needs. Physician Parameters for PEM Serum Albumin (g/dl) 3.1 - 3.4 (Mild)
[2017-06-13] MEDS: Potassium Chloride Elixir 20 mEq /15 mL UDC GT SCH ×3 (08:59→21:47)
[2017-06-13] MEDS: Lactobacillus Rhamnosus 10 Billion CFU Capsule PO SCH (09:00)
[2017-06-13] MEDS: Calcium Carb/Vit D 500 mg/200 U Tab GT SCH (09:00)
[2017-06-13 10:17] LABS: BAND NEUTROPHILE 6 % (0-10); BASOPHIL 2 % (0-3); EOSINOPHIL 3 % (0-5); METAMYELOCYTE 2 % (0-0); MYELOCYTE 1 %; NEUTROPHILS 42 % (40-80); TOTAL CELLS COUNTED 100
[2017-06-13 10:18] LABS: ANISOCYTOSIS 1+; PLATELET ESTIMATE DECREASED PLATELETS (NORMAL); PLATELET MORPHOLOGY PLATELET CLUMPS SEEN (NORMAL)
[2017-06-13 10:20] LABS: PLATELET COUNT 25 Th/cmm (150-400)
[2017-06-13] MEDS: Dextrose 5% 1,000 ML IV SCH (13:17)
[2017-06-13] MEDS: Sodium Chloride 0.45% 1,000 ML IV SCH (14:00)
--- NOTE | 2017-06-13 18:05 | General Progress Note ---
Subjective - Review of Systems Service Date: 06/13/17 Subjective: awake, non communicative Objective - Results Result Diagrams: 06/13/17 07:20 06/13/17 07:20 Recent Labs: Laboratory Last Values WBC 4.1 Th/cmm (4.8-10.8) L 06/13/17 07:20 RBC 2.68 Mil/cmm (4.30-5.70) L 06/13/17 07:20 Hgb 8.9 gm/dL (13.2-17.3) L 06/13/17 07:20 Hct 25.6 % (39.0-49.0) L 06/13/17 07:20 MCV 95.6 fl (80-99) 06/13/17 07:20 MCH 33.4 pg (26.0-30.0) H 06/13/17 07:20 MCHC Differential 34.9 pg (28.0-36.0) 06/13/17 07:20 RDW 16.0 % (11.5-20.0) 06/13/17 07:20 Plt Count 25 Th/cmm (150-400) L* 06/13/17 07:20 MPV 9.7 fl 06/13/17 07:20 Neutrophils % 64.8 % (40.0-80.0) 06/10/17 04:40 Band Neutrophils % 6 % (0-10) 06/13/17 07:20 Lymphocytes % 18.4 % (20.0-50.0) L 06/10/17 04:40 Monocytes % 12.3 % (2.0-10.0) H 06/10/17 04:40 Eosinophils % 4.2 % (0.0-5.0) 06/10/17 04:40 Basophils % 0.3 % (0.0-2.0) 06/10/17 04:40 Neutrophils (Manual) 42 % (40-80) 06/13/17 07:20 Lymphocytes 26 % (20-50) 06/13/17 07:20 Monocytes 18 % (2-10) H 06/13/17 07:20 Eosinophils 3 % (0-5) 06/13/17 07:20 Basophils 2 % (0-3) 06/13/17 07:20 Metamyelocytes 2 % (0-0) H 06/13/17 07:20 Myelocytes 1 % 06/13/17 07:20 Nucleated RBCs 1.0 % (0-0) H 06/08/17 04:59 Platelet Estimate DECREASED PLATELETS (NORMAL) 06/13/17 07:20 Platelet Morphology PLATELET CLUMPS SEEN (NORMAL) 06/13/17 07:20 Anisocytosis 1+ 06/13/17 07:20 RBC Morph Micro Appear ABNORMAL (NORMAL) 06/13/17 07:20 Specimen Source ARTERIAL 06/10/17 08:43 Sample Site Left Radial 06/10/17 08:43 pH 7.46 (7.35-7.45) H 06/10/17 08:43 pCO2 36.0 mmHg (35.0-45.0) 06/10/17 08:43 pO2 92.0 mmHg (80.0-100.0) 06/10/17 08:43 HCO3 26.4 mEq/L (20.0-26.0) H 06/10/17 08:43 Base Excess 1.9 mEq/L (-3.0-3.0) 06/10/17 08:43 O2 Saturation 98.0 % (92.0-100.0) 06/10/17 08:43 Jose L Test POSITIVE 06/10/17 08:43 Vent Rate 12 06/10/17 08:43 Inspired O2 40 06/10/17 08:43 Tidal Volume 500 06/10/17 08:43 PEEP 5 06/10/17 08:43 Pressure (ins/psv/peep) N/A 06/10/17 08:43 Critical Value SAURABH 06/10/17 08:43 Sodium 135 mEq/L (136-145) L 06/13/17 07:20 Potassium 3.4 mEq/L (3.5-5.1) L 06/13/17 07:20 Chloride 105 mEq/L (98-107) 06/13/17 07:20 Carbon Dioxide 26.1 mEq/L (21.0-31.0) 06/13/17 07:20 Anion Gap 7.3 (7.0-16.0) 06/13/17 07:20 BUN 9 mg/dL (7-25) 06/13/17 07:20 Creatinine 0.4 mg/dL (0.7-1.3) L 06/13/17 07:20 Est GFR ( Amer) > 60.0 ml/min (>90) 06/13/17 07:20 Est GFR (Non-Af Amer) > 60.0 ml/min 06/13/17 07:20 BUN/Creatinine Ratio 22.5 06/13/17 07:20 Glucose 122 mg/dL (70-105) H 06/13/17 07:20 Plasma/Ser Osmolality 313 mOsmol/kg (275-295) H 06/09/17 05:07 Whole Bld Lactic Acid 1.51 mmol/L (0.60-1.99) 06/08/17 04:59 Calcium 8.7 mg/dL (8.6-10.3) 06/13/17 07:20 Phosphorus 2.7 mg/dL (2.5-5.0) 06/08/17 04:59 Magnesium 2.2 mg/dL (1.9-2.7) 06/09/17 05:07 Iron 71 ug/dL (38-169) 06/08/17 04:59 TIBC 173 ug/dL (250-450) L 06/08/17 04:59 Iron Saturation 41 % (15-55) 06/08/17 04:59 Unsaturated IBC 102 ug/dL (111-343) L 06/08/17 04:59 Ferritin 303 ng/mL (30-400) 06/08/17 04:59 Total Bilirubin 0.8 mg/dL (0.3-1.0) 06/09/17 05:07 Direct Bilirubin 0.40 mg/dL (0.0-0.2) H 06/09/17 05:07 AST 34 U/L (13-39) 06/09/17 05:07 ALT 20 U/L (7-52) 06/09/17 05:07 Alkaline Phosphatase 171 U/L (34-104) H 06/09/17 05:07 Ammonia 68 umol/L (16-53) H 06/12/17 07:15 Troponin I 0.01 ng/mL (0.01-0.05) 06/07/17 13:28 B-Natriuretic Peptide 91.8 pg/mL (5.0-100.0) 06/07/17 13:28 Total Protein 6.8 gm/dL (6.0-8.3) 06/09/17 05:07 Albumin 2.3 gm/dL (4.2-5.5) L 06/09/17 05:07 Globulin 4.5 gm/dL 06/09/17 05:07 Albumin/Globulin Ratio 0.5 (1.0-1.8) L 06/09/17 05:07 Vitamin B12 >1999 pg/mL (211-946) H 06/08/17 04:59 Folic Acid >20.0 ng/mL (>3.0) 06/08/17 04:59 Urine Source RANDOM 06/07/17 13:25 Urine Color NISA 06/07/17 13:25 Urine Clarity CLOUDY (CLEAR) 06/07/17 13:25 Urine pH 5.5 (4.6 - 8.0) 06/07/17 13:25 Ur Specific [place] 1.020 (1.005-1.030) 06/07/17 13:25 Urine Protein >=300 mg/dL (NEGATIVE) 06/07/17 13:25 Urine Glucose (UA) NEGATIVE mg/dL (NEGATIVE) 06/07/17 13:25 Urine Ketones 15 mg/dL (NEGATIVE) H 06/07/17 13:25 Urine Blood LARGE (NEGATIVE) H 06/07/17 13:25 Urine Nitrate POSITIVE (NEGATIVE) H 06/07/17 13:25 Urine Bilirubin MODERATE (NEGATIVE) H 06/07/17 13:25 Urine Urobilinogen 2.0 E.U./dL (0.2 - 1.0) 06/07/17 13:25 Ur Leukocyte Esterase MODERATE (NEGATIVE) H 06/07/17 13:25 Urine RBC >100 /hpf (0-5) H 06/07/17 13:25 Urine WBC 2-5 /hpf (0-5) H 06/07/17 13:25 Ur Epithelial Cells OCCASIONAL /lpf (FEW) 06/07/17 13:25 Urine Bacteria FEW /hpf (NONE SEEN) 06/07/17 13:25 Urine Osmolality 776 mOsmol/kg 06/09/17 05:53 Ur Random Sodium 119 mmol/L 06/08/17 18:16 Stool Occult Blood NEGATIVE (NEGATIVE) 06/12/17 17:30 Vancomycin Trough 16.1 ug/mL (10-20) 06/13/17 07:20 Blood Type O POSITIVE 06/09/17 09:30 Antibody Screen NEGATIVE 06/09/17 09:30 - Physical Exam Vitals and I&O: Vital Signs Temp 97.1 F 06/13/17 16:00 Pulse 65 06/13/17 17:32 Resp 16 06/13/17 17:00 BP 99/52 06/13/17 17:00 Pulse Ox 99 06/13/17 17:32 Intake & Output 06/12/17 06/13/17 06/13/17 18:59 06:59 18:59 Intake Total 1200 1000 1443 Output Total 1650 850 Balance -182 646 7410 Weight (lbs) 83.007 kg 82.599 kg Intake: Intake, IV Amount 004 446 8562 Cefepime 1 gm In Dextrose 100 50 50 5% 50 ml @ 100 mls/hr IV Q8H [facility] Rx#:[id number] Colistimethate 75 mg In 100 100 100 Sodium Chloride 0.9% 100 ml @ 100 mls/hr IV Q12HR [facility] Rx#:[id number] Dextrose 5% 1,000 ml @ 60 1043 mls/hr IV .[id number] [facility] Rx#:[id number] Vancomycin HCl 1.25 gm In 250 250 250 Sodium Chloride 0.9% 250 ml @ 165 mls/hr IV Q12H [facility] Rx#:[id number] Tube Feeding 600 600 Other 150 Output: Urine 1650 850 Other: # Bowel Movements 3 4 Stool Characteristics Liquid Liquid Liquid Brown Brown Brown Active Medications: Current Medications Albuterol/Ipratropium (Duoneb Neb) 3 ml HHN Q4HR [place] Stop: 08/06/17 19:59 Last Admin: 06/13/17 15:31 Dose: 3 ml Albuterol/Ipratropium (Duoneb Neb) 3 ml HHN Q4HRT [facility] Stop: 08/07/17 18:59 Last Admin: 06/13/17 02:45 Dose: 3 ml Amlodipine Besylate (Norvasc) 5 mg GT Q12HR [place] Stop: 08/06/17 20:59 Last Admin: 06/13/17 09:01 Dose: 5 mg Artificial Tears (Artificial Tears Ophth Soln) 2 drop EACH EYE Q6H PRN PRN Reason: eye dryness Stop: 08/06/17 20:54 Last Admin: 06/12/17 01:03 Dose: 2 drop Atorvastatin Calcium (Lipitor) 10 mg GT HS [place] PRN Reason: Protocol Stop: 08/06/17 20:59 Last Admin: 06/12/17 21:00 Dose: 10 mg Bisacodyl (Dulcolax 10 Mg Supp) 10 mg RC DAILY PRN PRN Reason: Constipation Stop: 08/06/17 19:17 Budesonide (Pulmicort) 0.5 mg HHN BIDRT [place] Stop: 08/07/17 18:59 Last Admin: 06/13/17 07:49 Dose: 0.5 mg Calcium/Vitamin D (Oscal W/Vitamin D) 1 tab GT DAILY [facility] Stop: 08/07/17 08:59 Last Admin: 06/13/17 09:00 Dose: 1 tab Chlorhexidine Gluconate (Peridex) 15 ml MM 0800,1999 [facility] Stop: 08/08/17 19:59 Last Admin: 06/13/17 07:50 Dose: 15 ml Clonazepam (Klonopin) 2 mg GT DAILY [place] Stop: 08/07/17 08:59 Last Admin: 06/13/17 09:00 Dose: 2 mg Folic Acid (Folate) 2.5 mg GT DAILY [facility] Stop: 08/07/17 08:59 Last Admin: 06/13/17 09:00 Dose: 2.5 mg Hydralazine HCl (Apresoline) 50 mg GT Q8HR [place] Stop: 08/06/17 20:59 Last Admin: 06/13/17 13:00 Dose: Not Given Cefepime HCl 1 gm/ Dextrose 50 mls @ 100 mls/hr IV Q8H [facility] Stop: 08/07/17 00:59 Last Admin: 06/13/17 17:00 Dose: 100 mls/hr Vancomycin HCl 1.25 gm/ Sodium (Chloride) 250 mls @ 165 mls/hr IV Q12H [facility] Stop: 08/07/17 09:59 Last Infusion: 06/13/17 12:24 Dose: Infused Colistimethate Sodium 75 mg/ (Sodium Chloride) 100 mls @ 100 mls/hr IV Q12HR [facility] Stop: 08/10/17 20:59 Last Infusion: 06/13/17 10:50 Dose: Infused Sodium Chloride (Nacl 0.45%) 1,000 mls @ 40 mls/hr IV .Q24H [facility] Stop: 08/12/17 13:39 Last Admin: 06/13/17 14:00 Dose: 40 mls/hr Lactobacillus Rhamnosus (Culturelle) 1 each PO DAILY [facility] Stop: 08/08/17 08:59 Last Admin: 06/13/17 09:00 Dose: 1 each Lactulose (Cephulac) 30 gm GT Q6HR [facility] Stop: 08/08/17 17:59 Last Admin: 06/13/17 11:43 Dose: 30 gm Levetiracetam (Keppra) 1,000 mg GT Q8HR [facility] Stop: 08/06/17 20:59 Last Admin: 06/13/17 13:29 Dose: 1,000 mg Magnesium Hydroxide (Milk Of Magnesia) 30 ml GT HS PRN PRN Reason: Constipation Stop: 08/06/17 19:17 Magnesium Oxide (Mag-Oxide) 400 mg GT DAILY [place] Stop: 08/07/17 08:59 Last Admin: 06/13/17 09:01 Dose: 400 mg Metoprolol Tartrate (Lopressor) 100 mg GT Q12HR [place] Stop: 08/06/17 20:59 Last Admin: 06/13/17 09:02 Dose: 100 mg Miscellaneous (Vancomycin Iv Per Pharmacy) 1 ea PRN PRN PRN Reason: PROTOCOL Stop: 08/07/17 07:59 Miscellaneous (Probiotic Screen) 1 [facility] PRN PRN PRN Reason: PROTOCOL Stop: 08/07/17 10:42 Phytonadione (Mephyton) 10 mg GT DAILY [facility] Stop: 08/07/17 19:59 Last Admin: 06/13/17 09:01 Dose: 10 mg Potassium Chloride (Potassium Chloride Elixir) 20 meq GT TID [place] Stop: 08/12/17 13:59 Last Admin: 06/13/17 13:58 Dose: 20 meq Propranolol HCl (Inderal) 20 mg GT TID [facility] Stop: 08/06/17 20:59 Last Admin: 06/13/17 14:00 Dose: Not Given Pyridoxine HCl (Vitamin B6) 100 mg GT DAILY [facility] Stop: 08/07/17 08:59 Last Admin: 06/13/17 09:01 Dose: 100 mg Rifaximin (Xifaxan) 500 mg PO BID [facility] Stop: 08/07/17 16:59 Last Admin: 06/13/17 17:24 Dose: 500 mg Sodium Phosphate (Fleet Enema) 135 ml RC Q48H PRN PRN Reason: IF DULCOLAX IS INEFFECTIVE Stop: 08/06/17 19:17 Thiamine HCl (Vitamin B1) 100 mg GT DAILY [facility] Stop: 08/07/17 08:59 Last Admin: 06/13/17 09:00 Dose: 100 mg Valproate Sodium (Depakene) 500 mg GT TID [place] PRN Reason: Protocol Stop: 08/06/17 20:59 Last Admin: 06/13/17 13:30 Dose: 500 mg General: Alert, No acute distress HEENT: Atraumatic, PERRLA, EOMI, Mucous membr. moist/pink Neck: Supple, +2 carotid pulse wo bruit Cardiovascular: Regular rate, Normal S1, Normal S2 Lungs: Clear to auscultation Abdomen: Bowel sounds, Soft Extremities: no Edema Neurological: Sensation intact Skin: no Rash Psych/Mental Status: Mood NL - Procedures Procedures: Procedures Procedure Code Date RESPIRATORY VENTILATION, GREATER THAN 96 CONSECUTIVE HOURS [id number] 06/07/17 Assessment/Plan - Problem List Patient Problems: All Active Problems ELEVATED NA+, AND BUN LEVELS (Acute) - Assessment Assessment: * SPLENOMEGALY. * THROMBOCYTOPENIA. Fluctuating, S/P TX * RESPIRATORY FAILURE. * ANEMIA OF CHRONIC DISEASE. FOLLow stool ob no need for tx Nutritional Asmnt/Malnutr-PDOC - Dietary Evaluation Malnutrition Findings (Please click <Entered> for more info): Nutritional Asmnt/Malnutrition Start: 06/09/17 11: 00 Text: Status: Complete Freq: Document 06/09/17 13:09 [facility] (Rec: 06/09/17 13:27 [facility] [id number]) Nutritional Asmnt/Malnutrition Patient General Information Nutritional Screening High Risk Screening Diagnosis Sepsis, UTI, right and left lower lobe infiltrate, pneumonia Pertinent Medical Hx/Surgical Hx Alcohol problem, liver disease , cirrhosis of the liver, hepatic comas, seizures, trachestomy, PEG, asthma, COPD Subjective Information Pt is a 52-year-old male from [facility] admitted with chief complaint of shortness of breath and falling oxygen saturation. Pt has tracheostomy to ventilator. Pt was unable to provide nutritional hx. Pt appears well nourished with no signs of muscle or fat depletion. Order to resume tube feeding; bag of Novosource Renal at bedside not yet started. Abdomen Ultrasound 06/09 notes some abdominal ascites. Current Diet Order/ Nutrition Support Novosource Renal at 55 ml/hr = 2640kcals, 120gm protein, 946ml free water Patient / S.O Can't verbalize diet edu Pertinent Medications Oscal with Vitamin D, Cefepime , D5w, Iron, Folate, Culturelle, MagOxide, Mephyton , KCl Elixir, Vitamin B6, Vitamin B1, Depakene, Vancomycin Pertinent Labs (06/09) Na 148H (improving), K 3L, Alkaline Phosphatase 171H, Ammonia 64H, Albumin 3.3L Nutritional Hx/Data Height 1.68 m Height (Calculated Centimeters) 167.6 Current Weight (lbs) 76.657 kg Weight (Calculated Kilograms) 76.7 Weight (Calculated Grams) 05184.1 Usual body Weight (lbs) 168 % Usual Body Weight 100 [place] Body Weight 142 % [place] Body Weight 119 Recent Weight Change No Weight Status Overweight GI Symptoms GI Symptoms Diarrhea Difficult in: Chewing Swallowing Food Allergies No Usual diet at home Nepro 1.8 (237 ml) QID 0900, 1300, 1700, 2100, sugar free ProStat 30 ml Skin Integrity/Comment: Vitor 12. Skin intact. Estimated Nutritional Goals BEE in Kcals: Using Current wt Calories/Kcals/Kg Based on current wt 76.8 kg with consideration of sepsis: Kcals Calculated 3134-0181 kcals/day (27-32 kcals/kg) to prevent wt gain with overwt status Protein: Using Current wt Protein g/kg: Based on current wt 76.8 kg with consideration of sepsis: Protein Calculated 92-115 gm/day (1.2-1.5 gm/kg) Fluid: ml Per MD/DO due to abnormal electrolytes Nutritional Problem 1. Problem Problem Excessive intake from enteral nutrition related to Etiology increased energy intake from calorically dense tube feeding formula as evidenced by Signs/Symptoms: current tube feeding meets 104 % of higher end of estimated calories needs. Malnutrition Alert Protein-Calorie Malnutrition N/A Is there a minimum of two criteria No selected? Query Text:Check all the applicable criteria. A minimum of two criteria are recommended for diagnosis of either severe or non-severe malnutrition. Malnutrition Related to Morbid Obesity Malnutrition related to morbid obesity No Intervention/Recommendation Recommendations by RD Decrease Calorie Intake Comments 1. Recommend decrease tube feeding Novosource Renal at goal rate of 50 ml/hr to provide 2400 kcals, 109 gm protein, and 860 ml free water per day. Monitor renal labs to prioritize protein needs. Expected Outcomes/Goals Expected Outcomes/Goals Provide pt with 100% of estimated nutritional needs. Physician Parameters for PEM Serum Albumin (g/dl) 3.1 - 3.4 (Mild)
[2017-06-13] MEDS ORDERED: Meropenem 1 GM in Sodium Chloride 0.9% 100 ML IV ONE (19:45)
[2017-06-13] MEDS: Atorvastatin Calcium 10 MG TAB GT SCH (21:51)
--- NOTE | 2017-06-13 23:44 | Progress Notes ---
DATE: 06/13/2017 PROBLEM LIST: 1. Acute bilateral pneumonia. 2. Bilateral effusion, small. 3. Underlying hepatic encephalopathy. 4. Electrolyte imbalance. SUBJECTIVE: Symptoms, nil. Little bit more awake, alert, though not following consistently all the verbal communication. PHYSICAL EXAMINATION: VITAL SIGNS: Temperature is 97.3, BP is 90s, saturation 100% on 40%. NECK: Veins are not visualized. Good bilateral carotid upstroke. CHEST: Shows diminished air entry with occasional rhonchi. HEART: Regular. ABDOMEN: Soft, nontender. LABORATORY DATA: Platelet is 25,000. Electrolytes are okay, except for potassium of 3.4. ASSESSMENT: The patient clinically appears to be reasonably stable. PLANS AND SUGGESTIONS: We will continue current treatment. We will follow through chest x-ray and blood gases in the morning. JOB# [id number]
[2017-06-14] MEDS: Lactulose 10 Gm/15 mL 30mL UDC GT SCH ×5 (00:14→23:40)
[2017-06-14] MEDS: Albuterol/Ipratropium Neb 3 ML AERS HHN SCH ×6 (03:15→23:01)
[2017-06-14] MEDS: Levetiracetam 500 mg/5mL 5mL UDC GT SCH ×3 (05:07→20:41)
[2017-06-14 05:12] LABS: HEMOGLOBIN 8.8 gm/dL (13.2-17.3)
[2017-06-14 05:15] LABS: HEMATOCRIT 25.8 % (39.0-49.0); MEAN CELL VOLUME 95.9 fl (80-99)
[2017-06-14 05:35] LABS: MEAN CORPUSCULAR HEMOGLOBIN 32.5 pg (26.0-30.0); RED BLOOD COUNT 2.71 Mil/cmm (4.30-5.70); WHITE BLOOD COUNT 3.6 Th/cmm (4.8-10.8)
[2017-06-14 05:36] LABS: PLATELET COUNT 70 Th/cmm (150-400)
[2017-06-14 05:40] LABS: ANION GAP 6.4 (7.0-16.0); BUN - UREA NITROGEN 9 mg/dL (7-25); CALCIUM SERUM 8.7 mg/dL (8.6-10.3); CARBON DIOXIDE 25.4 mEq/L (21.0-31.0); CHLORIDE 105 mEq/L (98-107); CREATININE - SERUM 0.3 mg/dL (0.7-1.3); GLUCOSE 99 mg/dL (70-105); MAGNESIUM 1.6 mg/dL (1.9-2.7); POTASSIUM SERUM 3.8 mEq/L (3.5-5.1); SODIUM SERUM 133 mEq/L (136-145)
[2017-06-14 05:45] LABS: BAND NEUTROPHILE 4 % (0-10); BASOPHIL 0 % (0-3); EOSINOPHIL 5 % (0-5); NEUTROPHILS 63 % (40-80); PLATELET ESTIMATE DECREASED PLATELETS (NORMAL); TOTAL CELLS COUNTED 100
[2017-06-14 05:46] LABS: PLATELET MORPHOLOGY NORMAL (NORMAL)
[2017-06-14] MEDS: Budesonide 0.5 Mg/2 mL Ud HHN SCH ×2 (07:01→19:36)
[2017-06-14] MEDS: Chlorhexidine Gluconate 0.12% 15mL Mouthwash MM SCH ×2 (08:00→20:42)
--- NOTE | 2017-06-14 08:35 | Diagnostic Imaging Report ---
Portable chest x-ray Time: 0 742 History: Shortness of breath Allowing for portable technique the heart size is normal. No focal pulmonary parenchymal processes. Tracheostomy tube midline. No hilar or mediastinal abnormalities. Congestion cannot be excluded. Impression: Question of congestion. Mild left basilar atelectasis.
[2017-06-14] MEDS: Calcium Carb/Vit D 500 mg/200 U Tab GT SCH (09:17)
[2017-06-14] MEDS: Lactobacillus Rhamnosus 10 Billion CFU Capsule PO SCH (09:17)
[2017-06-14] MEDS: Potassium Chloride Elixir 20 mEq /15 mL UDC GT SCH ×3 (09:20→20:40)
--- NOTE | 2017-06-14 11:38 | General Progress Note ---
Subjective - Review of Systems Events since last encounter: awake no acute distress nonverbal Subjective: on vent, afebrile nad Objective - Results Result Diagrams: 06/14/17 05:00 06/14/17 05:00 Recent Labs: Laboratory Last Values WBC 3.6 Th/cmm (4.8-10.8) L 06/14/17 05:00 RBC 2.71 Mil/cmm (4.30-5.70) L 06/14/17 05:00 Hgb 8.8 gm/dL (13.2-17.3) L 06/14/17 05:00 Hct 25.8 % (39.0-49.0) L 06/14/17 05:00 MCV 95.9 fl (80-99) 06/14/17 05:00 MCH 32.5 pg (26.0-30.0) H 06/14/17 05:00 MCHC Differential 34.0 pg (28.0-36.0) 06/14/17 05:00 RDW 16.0 % (11.5-20.0) 06/14/17 05:00 Plt Count 70 Th/cmm (150-400) L D 06/14/17 05:00 MPV 10.0 fl 06/14/17 05:00 Neutrophils % 64.8 % (40.0-80.0) 06/10/17 04:40 Band Neutrophils % 4 % (0-10) 06/14/17 05:00 Lymphocytes % 18.4 % (20.0-50.0) L 06/10/17 04:40 Monocytes % 12.3 % (2.0-10.0) H 06/10/17 04:40 Eosinophils % 4.2 % (0.0-5.0) 06/10/17 04:40 Basophils % 0.3 % (0.0-2.0) 06/10/17 04:40 Neutrophils (Manual) 63 % (40-80) 06/14/17 05:00 Lymphocytes 15 % (20-50) L 06/14/17 05:00 Monocytes 13 % (2-10) H 06/14/17 05:00 Eosinophils 5 % (0-5) 06/14/17 05:00 Basophils 0 % (0-3) 06/14/17 05:00 Metamyelocytes 2 % (0-0) H 06/13/17 07:20 Myelocytes 1 % 06/13/17 07:20 Nucleated RBCs 1.0 % (0-0) H 06/08/17 04:59 Platelet Estimate DECREASED PLATELETS (NORMAL) 06/14/17 05:00 Platelet Morphology NORMAL (NORMAL) 06/14/17 05:00 Anisocytosis 1+ 06/13/17 07:20 RBC Morph Micro Appear NORMAL (NORMAL) 06/14/17 05:00 Specimen Source ARTERIAL 06/10/17 08:43 Sample Site Left Radial 06/10/17 08:43 pH 7.46 (7.35-7.45) H 06/10/17 08:43 pCO2 36.0 mmHg (35.0-45.0) 06/10/17 08:43 pO2 92.0 mmHg (80.0-100.0) 06/10/17 08:43 HCO3 26.4 mEq/L (20.0-26.0) H 06/10/17 08:43 Base Excess 1.9 mEq/L (-3.0-3.0) 06/10/17 08:43 O2 Saturation 98.0 % (92.0-100.0) 06/10/17 08:43 Jose L Test POSITIVE 06/10/17 08:43 Vent Rate 12 06/10/17 08:43 Inspired O2 40 06/10/17 08:43 Tidal Volume 500 06/10/17 08:43 PEEP 5 06/10/17 08:43 Pressure (ins/psv/peep) N/A 06/10/17 08:43 Critical Value SAURABH 06/10/17 08:43 Sodium 133 mEq/L (136-145) L 06/14/17 05:00 Potassium 3.8 mEq/L (3.5-5.1) 06/14/17 05:00 Chloride 105 mEq/L (98-107) 06/14/17 05:00 Carbon Dioxide 25.4 mEq/L (21.0-31.0) 06/14/17 05:00 Anion Gap 6.4 (7.0-16.0) L 06/14/17 05:00 BUN 9 mg/dL (7-25) 06/14/17 05:00 Creatinine 0.3 mg/dL (0.7-1.3) L 06/14/17 05:00 Est GFR ( Amer) > 60.0 ml/min (>90) 06/14/17 05:00 Est GFR (Non-Af Amer) > 60.0 ml/min 06/14/17 05:00 BUN/Creatinine Ratio 30.0 06/14/17 05:00 Glucose 99 mg/dL (70-105) 06/14/17 05:00 Plasma/Ser Osmolality 313 mOsmol/kg (275-295) H 06/09/17 05:07 Whole Bld Lactic Acid 1.51 mmol/L (0.60-1.99) 06/08/17 04:59 Calcium 8.7 mg/dL (8.6-10.3) 06/14/17 05:00 Phosphorus 2.7 mg/dL (2.5-5.0) 06/08/17 04:59 Magnesium 1.6 mg/dL (1.9-2.7) L 06/14/17 05:00 Iron 71 ug/dL (38-169) 06/08/17 04:59 TIBC 173 ug/dL (250-450) L 06/08/17 04:59 Iron Saturation 41 % (15-55) 06/08/17 04:59 Unsaturated IBC 102 ug/dL (111-343) L 06/08/17 04:59 Ferritin 303 ng/mL (30-400) 06/08/17 04:59 Total Bilirubin 0.8 mg/dL (0.3-1.0) 06/09/17 05:07 Direct Bilirubin 0.40 mg/dL (0.0-0.2) H 06/09/17 05:07 AST 34 U/L (13-39) 06/09/17 05:07 ALT 20 U/L (7-52) 06/09/17 05:07 Alkaline Phosphatase 171 U/L (34-104) H 06/09/17 05:07 Ammonia 83 umol/L (16-53) H 06/14/17 05:00 Troponin I 0.01 ng/mL (0.01-0.05) 06/07/17 13:28 B-Natriuretic Peptide 91.8 pg/mL (5.0-100.0) 06/07/17 13:28 Total Protein 6.8 gm/dL (6.0-8.3) 06/09/17 05:07 Albumin 2.3 gm/dL (4.2-5.5) L 06/09/17 05:07 Globulin 4.5 gm/dL 06/09/17 05:07 Albumin/Globulin Ratio 0.5 (1.0-1.8) L 06/09/17 05:07 Vitamin B12 >1999 pg/mL (211-946) H 06/08/17 04:59 Folic Acid >20.0 ng/mL (>3.0) 06/08/17 04:59 Urine Source RANDOM 06/07/17 13:25 Urine Color NISA 06/07/17 13:25 Urine Clarity CLOUDY (CLEAR) 06/07/17 13:25 Urine pH 5.5 (4.6 - 8.0) 06/07/17 13:25 Ur Specific [place] 1.020 (1.005-1.030) 06/07/17 13:25 Urine Protein >=300 mg/dL (NEGATIVE) 06/07/17 13:25 Urine Glucose (UA) NEGATIVE mg/dL (NEGATIVE) 06/07/17 13:25 Urine Ketones 15 mg/dL (NEGATIVE) H 06/07/17 13:25 Urine Blood LARGE (NEGATIVE) H 06/07/17 13:25 Urine Nitrate POSITIVE (NEGATIVE) H 06/07/17 13:25 Urine Bilirubin MODERATE (NEGATIVE) H 06/07/17 13:25 Urine Urobilinogen 2.0 E.U./dL (0.2 - 1.0) 06/07/17 13:25 Ur Leukocyte Esterase MODERATE (NEGATIVE) H 06/07/17 13:25 Urine RBC >100 /hpf (0-5) H 06/07/17 13:25 Urine WBC 2-5 /hpf (0-5) H 06/07/17 13:25 Ur Epithelial Cells OCCASIONAL /lpf (FEW) 06/07/17 13:25 Urine Bacteria FEW /hpf (NONE SEEN) 06/07/17 13:25 Urine Osmolality 776 mOsmol/kg 06/09/17 05:53 Ur Random Sodium 119 mmol/L 06/08/17 18:16 Stool Occult Blood NEGATIVE (NEGATIVE) 06/12/17 17:30 Vancomycin Trough 16.1 ug/mL (10-20) 06/13/17 07:20 Blood Type O POSITIVE 06/09/17 09:30 Antibody Screen NEGATIVE 06/09/17 09:30 - Physical Exam Vitals and I&O: Vital Signs Temp 97.2 F 06/14/17 08:00 Pulse 66 06/14/17 11:22 Resp 21 06/14/17 10:00 BP 121/63 06/14/17 10:00 Pulse Ox 100 06/14/17 11:22 Intake & Output 06/13/17 06/14/17 06/14/17 18:59 06:59 18:59 Intake Total 2243 860 200 Output Total 1250 800 Balance 993 60 200 Weight (lbs) 82.554 kg 79.016 kg Intake: Intake, IV Amount 1493 100 200 Cefepime 1 gm In Dextrose 100 5% 50 ml @ 100 mls/hr IV Q8H [facility] Rx#:[id number] Colistimethate 75 mg In 100 100 100 Sodium Chloride 0.9% 100 ml @ 100 mls/hr IV Q12HR [facility] Rx#:[id number] Dextrose 5% 1,000 ml @ 60 1043 mls/hr IV .[id number] [facility] Rx#:[id number] Meropenem 1 gm In Sodium 100 Chloride 0.9% 100 ml @ 100 mls/hr IV Q12H [facility] Rx #:[id number] Vancomycin HCl 1.25 gm In 250 Sodium Chloride 0.9% 250 ml @ 165 mls/hr IV Q12H [facility] Rx#:[id number] Tube Feeding 600 600 Other 150 160 Output: Urine 1250 800 Other: # Bowel Movements 3 4 Stool Characteristics Liquid Liquid Liquid Brown Brown Brown Active Medications: Current Medications Albuterol/Ipratropium (Duoneb Neb) 3 ml HHN Q4HR [facility] Stop: 08/06/17 19:59 Last Admin: 06/14/17 11:22 Dose: 3 ml Albuterol/Ipratropium (Duoneb Neb) 3 ml HHN Q4HRT [facility] Stop: 08/07/17 18:59 Last Admin: 06/14/17 03:15 Dose: 3 ml Amlodipine Besylate (Norvasc) 5 mg GT Q12HR [facility] Stop: 08/06/17 20:59 Last Admin: 06/14/17 09:17 Dose: 5 mg Artificial Tears (Artificial Tears Ophth Soln) 2 drop EACH EYE Q6H PRN PRN Reason: eye dryness Stop: 08/06/17 20:54 Last Admin: 06/12/17 01:03 Dose: 2 drop Atorvastatin Calcium (Lipitor) 10 mg GT HS [facility] PRN Reason: Protocol Stop: 08/06/17 20:59 Last Admin: 06/13/17 21:51 Dose: 10 mg Bisacodyl (Dulcolax 10 Mg Supp) 10 mg RC DAILY PRN PRN Reason: Constipation Stop: 08/06/17 19:17 Budesonide (Pulmicort) 0.5 mg HHN BIDRT [facility] Stop: 08/07/17 18:59 Last Admin: 06/14/17 07:01 Dose: 0.5 mg Calcium/Vitamin D (Oscal W/Vitamin D) 1 tab GT DAILY [facility] Stop: 08/07/17 08:59 Last Admin: 06/14/17 09:17 Dose: 1 tab Chlorhexidine Gluconate (Peridex) 15 ml MM 0800,2000 [facility] Stop: 08/08/17 19:59 Last Admin: 06/14/17 08:00 Dose: 15 ml Clonazepam (Klonopin) 2 mg GT DAILY [facility] Stop: 08/07/17 08:59 Last Admin: 06/14/17 09:17 Dose: 2 mg Folic Acid (Folate) 2.5 mg GT DAILY [facility] Stop: 08/07/17 08:59 Last Admin: 06/14/17 09:17 Dose: 2.5 mg Hydralazine HCl (Apresoline) 50 mg GT Q8HR [facility] Stop: 08/06/17 20:59 Last Admin: 06/14/17 05:18 Dose: Not Given Vancomycin HCl 1.25 gm/ Sodium (Chloride) 250 mls @ 165 mls/hr IV Q12H [facility] Stop: 08/07/17 09:59 Last Admin: 06/14/17 11:00 Dose: 165 mls/hr Colistimethate Sodium 75 mg/ (Sodium Chloride) 100 mls @ 100 mls/hr IV Q12HR [facility] Stop: 08/10/17 20:59 Last Infusion: 06/14/17 10:30 Dose: Infused Sodium Chloride (Nacl 0.45%) 1,000 mls @ 40 mls/hr IV .Q24H [facility] Stop: 08/12/17 13:39 Last Admin: 06/13/17 14:00 Dose: 40 mls/hr Meropenem 1 gm/ Sodium (Chloride) 100 mls @ 100 mls/hr IV Q12H [facility] Stop: 08/13/17 08:59 Last Infusion: 06/14/17 09:30 Dose: Infused Lactobacillus Rhamnosus (Culturelle) 1 each PO DAILY [facility] Stop: 08/08/17 08:59 Last Admin: 06/14/17 09:17 Dose: 1 each Lactulose (Cephulac) 30 gm GT Q6HR [facility] Stop: 08/08/17 17:59 Last Admin: 06/14/17 05:07 Dose: 30 gm Levetiracetam (Keppra) 1,000 mg GT Q8HR [facility] Stop: 08/06/17 20:59 Last Admin: 06/14/17 05:07 Dose: 1,000 mg Magnesium Hydroxide (Milk Of Magnesia) 30 ml GT HS PRN PRN Reason: Constipation Stop: 08/06/17 19:17 Magnesium Oxide (Mag-Oxide) 400 mg GT DAILY [facility] Stop: 08/07/17 08:59 Last Admin: 06/14/17 09:17 Dose: 400 mg Metoprolol Tartrate (Lopressor) 100 mg GT Q12HR [facility] Stop: 08/06/17 20:59 Last Admin: 06/14/17 09:19 Dose: Not Given Miscellaneous (Vancomycin Iv Per Pharmacy) 1 ea PRN PRN PRN Reason: PROTOCOL Stop: 08/07/17 07:59 Miscellaneous (Probiotic Screen) 1 [facility] PRN PRN PRN Reason: PROTOCOL Stop: 08/07/17 10:42 Phytonadione (Mephyton) 10 mg GT DAILY [facility] Stop: 08/07/17 19:59 Last Admin: 06/14/17 09:20 Dose: 10 mg Potassium Chloride (Potassium Chloride Elixir) 20 meq GT TID [facility] Stop: 08/12/17 13:59 Last Admin: 06/14/17 09:20 Dose: 20 meq Propranolol HCl (Inderal) 20 mg GT TID [facility] Stop: 08/06/17 20:59 Last Admin: 06/14/17 09:20 Dose: Not Given Pyridoxine HCl (Vitamin B6) 100 mg GT DAILY [facility] Stop: 08/07/17 08:59 Last Admin: 06/14/17 09:20 Dose: 100 mg Rifaximin (Xifaxan) 500 mg PO BID [facility] Stop: 08/07/17 16:59 Last Admin: 06/14/17 09:22 Dose: 500 mg Sodium Phosphate (Fleet Enema) 135 ml RC Q48H PRN PRN Reason: IF DULCOLAX IS INEFFECTIVE Stop: 08/06/17 19:17 Thiamine HCl (Vitamin B1) 100 mg GT DAILY [facility] Stop: 08/07/17 08:59 Last Admin: 06/14/17 09:17 Dose: 100 mg Valproate Sodium (Depakene) 500 mg GT TID [facility] PRN Reason: Protocol Stop: 08/06/17 20:59 Last Admin: 06/14/17 09:16 Dose: 500 mg General: Alert, No acute distress HEENT: Atraumatic, PERRLA, EOMI, Mucous membr. moist/pink Neck: Supple, +2 carotid pulse wo bruit Cardiovascular: Regular rate, Normal S1, Normal S2 Lungs: Clear to auscultation Abdomen: Bowel sounds, Soft Extremities: no Edema Neurological: Sensation intact Skin: no Rash Psych/Mental Status: Mood NL - Procedures Procedures: Procedures Procedure Code Date RESPIRATORY VENTILATION, GREATER THAN 96 CONSECUTIVE HOURS [id number] 06/07/17 Assessment/Plan - Problem List Patient Problems: All Active Problems ELEVATED NA+, AND BUN LEVELS (Acute) - Assessment Assessment: s/p respiratory failure pnumonia s/p trch and peg trmors h/o alcoholism h/o sizures - Plan Plan: iv antibiotics vent support continue current plan of care Nutritional Asmnt/Malnutr-PDOC - Dietary Evaluation Malnutrition Findings (Please click <Entered> for more info): Nutritional Asmnt/Malnutrition Start: 06/09/17 11: 00 Text: Status: Complete Freq: Document 06/09/17 13:09 [facility] (Rec: 06/09/17 13:27 [facility] [id number]) Nutritional Asmnt/Malnutrition Patient General Information Nutritional Screening High Risk Screening Diagnosis Sepsis, UTI, right and left lower lobe infiltrate, pneumonia Pertinent Medical Hx/Surgical Hx Alcohol problem, liver disease , cirrhosis of the liver, hepatic comas, seizures, trachestomy, PEG, asthma, COPD Subjective Information Pt is a 52-year-old male from [facility] admitted with chief complaint of shortness of breath and falling oxygen saturation. Pt has tracheostomy to ventilator. Pt was unable to provide nutritional hx. Pt appears well nourished with no signs of muscle or fat depletion. Order to resume tube feeding; bag of Novosource Renal at bedside not yet started. Abdomen Ultrasound 06/09 notes some abdominal ascites. Current Diet Order/ Nutrition Support Novosource Renal at 55 ml/hr = 2640kcals, 120gm protein, 946ml free water Patient / S.O Can't verbalize diet edu Pertinent Medications Oscal with Vitamin D, Cefepime , D5w, Iron, Folate, Culturelle, MagOxide, Mephyton , KCl Elixir, Vitamin B6, Vitamin B1, Depakene, Vancomycin Pertinent Labs (06/09) Na 148H (improving), K 3L, Alkaline Phosphatase 171H, Ammonia 64H, Albumin 3.3L Nutritional Hx/Data Height 1.68 m Height (Calculated Centimeters) 167.6 Current Weight (lbs) 76.657 kg Weight (Calculated Kilograms) 76.7 Weight (Calculated Grams) 48510.1 Usual body Weight (lbs) 168 % Usual Body Weight 100 [place] Body Weight 142 % [place] Body Weight 119 Recent Weight Change No Weight Status Overweight GI Symptoms GI Symptoms Diarrhea Difficult in: Chewing Swallowing Food Allergies No Usual diet at home Nepro 1.8 (237 ml) QID 0900, 1300, 1700, 2100, sugar free ProStat 30 ml Skin Integrity/Comment: Vitor Thomas. Skin intact. Estimated Nutritional Goals BEE in Kcals: Using Current wt Calories/Kcals/Kg Based on current wt 76.8 kg with consideration of sepsis: Kcals Calculated 7708-6922 kcals/day (27-32 kcals/kg) to prevent wt gain with overwt status Protein: Using Current wt Protein g/kg: Based on current wt 76.8 kg with consideration of sepsis: Protein Calculated 92-115 gm/day (1.2-1.5 gm/kg) Fluid: ml Per MD/DO due to abnormal electrolytes Nutritional Problem 1. Problem Problem Excessive intake from enteral nutrition related to Etiology increased energy intake from calorically dense tube feeding formula as evidenced by Signs/Symptoms: current tube feeding meets 104 % of higher end of estimated calories needs. Malnutrition Alert Protein-Calorie Malnutrition N/A Is there a minimum of two criteria No selected? Query Text:Check all the applicable criteria. A minimum of two criteria are recommended for diagnosis of either severe or non-severe malnutrition. Malnutrition Related to Morbid Obesity Malnutrition related to morbid obesity No Intervention/Recommendation Recommendations by RD Decrease Calorie Intake Comments 1. Recommend decrease tube feeding Novosource Renal at goal rate of 50 ml/hr to provide 2400 kcals, 109 gm protein, and 860 ml free water per day. Monitor renal labs to prioritize protein needs. Expected Outcomes/Goals Expected Outcomes/Goals Provide pt with 100% of estimated nutritional needs. Physician Parameters for PEM Serum Albumin (g/dl) 3.1 - 3.4 (Mild)
[2017-06-14] MEDS: Sodium Chloride 0.45% 1,000 ML IV SCH (15:00)
--- NOTE | 2017-06-14 15:52 | General Progress Note ---
Subjective - Review of Systems Service Date: 06/14/17 Subjective: awake, on vent Objective - Results Result Diagrams: 06/14/17 05:00 06/14/17 05:00 Recent Labs: Laboratory Last Values WBC 3.6 Th/cmm (4.8-10.8) L 06/14/17 05:00 RBC 2.71 Mil/cmm (4.30-5.70) L 06/14/17 05:00 Hgb 8.8 gm/dL (13.2-17.3) L 06/14/17 05:00 Hct 25.8 % (39.0-49.0) L 06/14/17 05:00 MCV 95.9 fl (80-99) 06/14/17 05:00 MCH 32.5 pg (26.0-30.0) H 06/14/17 05:00 MCHC Differential 34.0 pg (28.0-36.0) 06/14/17 05:00 RDW 16.0 % (11.5-20.0) 06/14/17 05:00 Plt Count 70 Th/cmm (150-400) L D 06/14/17 05:00 MPV 10.0 fl 06/14/17 05:00 Neutrophils % 64.8 % (40.0-80.0) 06/10/17 04:40 Band Neutrophils % 4 % (0-10) 06/14/17 05:00 Lymphocytes % 18.4 % (20.0-50.0) L 06/10/17 04:40 Monocytes % 12.3 % (2.0-10.0) H 06/10/17 04:40 Eosinophils % 4.2 % (0.0-5.0) 06/10/17 04:40 Basophils % 0.3 % (0.0-2.0) 06/10/17 04:40 Neutrophils (Manual) 63 % (40-80) 06/14/17 05:00 Lymphocytes 15 % (20-50) L 06/14/17 05:00 Monocytes 13 % (2-10) H 06/14/17 05:00 Eosinophils 5 % (0-5) 06/14/17 05:00 Basophils 0 % (0-3) 06/14/17 05:00 Metamyelocytes 2 % (0-0) H 06/13/17 07:20 Myelocytes 1 % 06/13/17 07:20 Nucleated RBCs 1.0 % (0-0) H 06/08/17 04:59 Platelet Estimate DECREASED PLATELETS (NORMAL) 06/14/17 05:00 Platelet Morphology NORMAL (NORMAL) 06/14/17 05:00 Anisocytosis 1+ 06/13/17 07:20 RBC Morph Micro Appear NORMAL (NORMAL) 06/14/17 05:00 Specimen Source ARTERIAL 06/10/17 08:43 Sample Site Left Radial 06/10/17 08:43 pH 7.46 (7.35-7.45) H 06/10/17 08:43 pCO2 36.0 mmHg (35.0-45.0) 06/10/17 08:43 pO2 92.0 mmHg (80.0-100.0) 06/10/17 08:43 HCO3 26.4 mEq/L (20.0-26.0) H 06/10/17 08:43 Base Excess 1.9 mEq/L (-3.0-3.0) 06/10/17 08:43 O2 Saturation 98.0 % (92.0-100.0) 06/10/17 08:43 Jose L Test POSITIVE 06/10/17 08:43 Vent Rate 12 06/10/17 08:43 Inspired O2 40 06/10/17 08:43 Tidal Volume 500 06/10/17 08:43 PEEP 5 06/10/17 08:43 Pressure (ins/psv/peep) N/A 06/10/17 08:43 Critical Value SAURABH 06/10/17 08:43 Sodium 133 mEq/L (136-145) L 06/14/17 05:00 Potassium 3.8 mEq/L (3.5-5.1) 06/14/17 05:00 Chloride 105 mEq/L (98-107) 06/14/17 05:00 Carbon Dioxide 25.4 mEq/L (21.0-31.0) 06/14/17 05:00 Anion Gap 6.4 (7.0-16.0) L 06/14/17 05:00 BUN 9 mg/dL (7-25) 06/14/17 05:00 Creatinine 0.3 mg/dL (0.7-1.3) L 06/14/17 05:00 Est GFR ( Amer) > 60.0 ml/min (>90) 06/14/17 05:00 Est GFR (Non-Af Amer) > 60.0 ml/min 06/14/17 05:00 BUN/Creatinine Ratio 30.0 06/14/17 05:00 Glucose 99 mg/dL (70-105) 06/14/17 05:00 Plasma/Ser Osmolality 313 mOsmol/kg (275-295) H 06/09/17 05:07 Whole Bld Lactic Acid 1.51 mmol/L (0.60-1.99) 06/08/17 04:59 Calcium 8.7 mg/dL (8.6-10.3) 06/14/17 05:00 Phosphorus 2.7 mg/dL (2.5-5.0) 06/08/17 04:59 Magnesium 1.6 mg/dL (1.9-2.7) L 06/14/17 05:00 Iron 71 ug/dL (38-169) 06/08/17 04:59 TIBC 173 ug/dL (250-450) L 06/08/17 04:59 Iron Saturation 41 % (15-55) 06/08/17 04:59 Unsaturated IBC 102 ug/dL (111-343) L 06/08/17 04:59 Ferritin 303 ng/mL (30-400) 06/08/17 04:59 Total Bilirubin 0.8 mg/dL (0.3-1.0) 06/09/17 05:07 Direct Bilirubin 0.40 mg/dL (0.0-0.2) H 06/09/17 05:07 AST 34 U/L (13-39) 06/09/17 05:07 ALT 20 U/L (7-52) 06/09/17 05:07 Alkaline Phosphatase 171 U/L (34-104) H 06/09/17 05:07 Ammonia 83 umol/L (16-53) H 06/14/17 05:00 Troponin I 0.01 ng/mL (0.01-0.05) 06/07/17 13:28 B-Natriuretic Peptide 91.8 pg/mL (5.0-100.0) 06/07/17 13:28 Total Protein 6.8 gm/dL (6.0-8.3) 06/09/17 05:07 Albumin 2.3 gm/dL (4.2-5.5) L 06/09/17 05:07 Globulin 4.5 gm/dL 06/09/17 05:07 Albumin/Globulin Ratio 0.5 (1.0-1.8) L 06/09/17 05:07 Vitamin B12 >1999 pg/mL (211-946) H 06/08/17 04:59 Folic Acid >20.0 ng/mL (>3.0) 06/08/17 04:59 Urine Source RANDOM 06/07/17 13:25 Urine Color NISA 06/07/17 13:25 Urine Clarity CLOUDY (CLEAR) 06/07/17 13:25 Urine pH 5.5 (4.6 - 8.0) 06/07/17 13:25 Ur Specific [place] 1.020 (1.005-1.030) 06/07/17 13:25 Urine Protein >=300 mg/dL (NEGATIVE) 06/07/17 13:25 Urine Glucose (UA) NEGATIVE mg/dL (NEGATIVE) 06/07/17 13:25 Urine Ketones 15 mg/dL (NEGATIVE) H 06/07/17 13:25 Urine Blood LARGE (NEGATIVE) H 06/07/17 13:25 Urine Nitrate POSITIVE (NEGATIVE) H 06/07/17 13:25 Urine Bilirubin MODERATE (NEGATIVE) H 06/07/17 13:25 Urine Urobilinogen 2.0 E.U./dL (0.2 - 1.0) 06/07/17 13:25 Ur Leukocyte Esterase MODERATE (NEGATIVE) H 06/07/17 13:25 Urine RBC >100 /hpf (0-5) H 06/07/17 13:25 Urine WBC 2-5 /hpf (0-5) H 06/07/17 13:25 Ur Epithelial Cells OCCASIONAL /lpf (FEW) 06/07/17 13:25 Urine Bacteria FEW /hpf (NONE SEEN) 06/07/17 13:25 Urine Osmolality 776 mOsmol/kg 06/09/17 05:53 Ur Random Sodium 119 mmol/L 06/08/17 18:16 Stool Occult Blood NEGATIVE (NEGATIVE) 06/12/17 17:30 Vancomycin Trough 16.1 ug/mL (10-20) 06/13/17 07:20 Blood Type O POSITIVE 06/09/17 09:30 Antibody Screen NEGATIVE 06/09/17 09:30 - Physical Exam Vitals and I&O: Vital Signs Temp 97.1 F 06/14/17 12:00 Pulse 63 06/14/17 15:15 Resp 18 06/14/17 15:00 BP 110/56 06/14/17 15:00 Pulse Ox 100 06/14/17 15:15 Intake & Output 06/13/17 06/14/17 06/14/17 18:59 06:59 18:59 Intake Total 2243 860 1450 Output Total 1250 800 Balance 928 61 0268 Weight (lbs) 82.554 kg 79.016 kg Intake: Intake, IV Amount 9617 323 0155 Cefepime 1 gm In Dextrose 100 5% 50 ml @ 100 mls/hr IV Q8H [facility] Rx#:[id number] Colistimethate 75 mg In 100 100 100 Sodium Chloride 0.9% 100 ml @ 100 mls/hr IV Q12HR [facility] Rx#:[id number] Dextrose 5% 1,000 ml @ 60 1043 mls/hr IV .[id number] [facility] Rx#:[id number] Meropenem 1 gm In Sodium 100 Chloride 0.9% 100 ml @ 100 mls/hr IV Q12H [facility] Rx #:[id number] Sodium Chloride 0.45% 1, 1000 000 ml @ 40 mls/hr IV . Q24H [facility] Rx#:[id number] Vancomycin HCl 1.25 gm In 250 250 Sodium Chloride 0.9% 250 ml @ 165 mls/hr IV Q12H [facility] Rx#:[id number] Tube Feeding 600 600 Other 150 160 Output: Urine 1250 800 Other: # Bowel Movements 3 4 Stool Characteristics Liquid Liquid Liquid Brown Brown Brown Active Medications: Current Medications Albuterol/Ipratropium (Duoneb Neb) 3 ml HHN Q4HR [facility] Stop: 08/06/17 19:59 Last Admin: 06/14/17 15:15 Dose: 3 ml Albuterol/Ipratropium (Duoneb Neb) 3 ml HHN Q4HRT [facility] Stop: 08/07/17 18:59 Last Admin: 06/14/17 03:15 Dose: 3 ml Amlodipine Besylate (Norvasc) 5 mg GT Q12HR [facility] Stop: 08/06/17 20:59 Last Admin: 06/14/17 09:17 Dose: 5 mg Artificial Tears (Artificial Tears Ophth Soln) 2 drop EACH EYE Q6H PRN PRN Reason: eye dryness Stop: 08/06/17 20:54 Last Admin: 06/12/17 01:03 Dose: 2 drop Atorvastatin Calcium (Lipitor) 10 mg GT HS [facility] PRN Reason: Protocol Stop: 08/06/17 20:59 Last Admin: 06/13/17 21:51 Dose: 10 mg Bisacodyl (Dulcolax 10 Mg Supp) 10 mg RC DAILY PRN PRN Reason: Constipation Stop: 08/06/17 19:17 Budesonide (Pulmicort) 0.5 mg HHN BIDRT [facility] Stop: 08/07/17 18:59 Last Admin: 06/14/17 07:01 Dose: 0.5 mg Calcium/Vitamin D (Oscal W/Vitamin D) 1 tab GT DAILY [facility] Stop: 08/07/17 08:59 Last Admin: 06/14/17 09:17 Dose: 1 tab Chlorhexidine Gluconate (Peridex) 15 ml MM 0800,1999 [facility] Stop: 08/08/17 19:59 Last Admin: 06/14/17 08:00 Dose: 15 ml Clonazepam (Klonopin) 2 mg GT DAILY [facility] Stop: 08/07/17 08:59 Last Admin: 06/14/17 09:17 Dose: 2 mg Folic Acid (Folate) 2.5 mg GT DAILY [facility] Stop: 08/07/17 08:59 Last Admin: 06/14/17 09:17 Dose: 2.5 mg Hydralazine HCl (Apresoline) 50 mg GT Q8HR [facility] Stop: 08/06/17 20:59 Last Admin: 06/14/17 13:00 Dose: Not Given Vancomycin HCl 1.25 gm/ Sodium (Chloride) 250 mls @ 165 mls/hr IV Q12H [facility] Stop: 08/07/17 09:59 Last Infusion: 06/14/17 12:31 Dose: Infused Colistimethate Sodium 75 mg/ (Sodium Chloride) 100 mls @ 100 mls/hr IV Q12HR [facility] Stop: 08/10/17 20:59 Last Infusion: 06/14/17 10:30 Dose: Infused Meropenem 1 gm/ Sodium (Chloride) 100 mls @ 100 mls/hr IV Q12H [facility] Stop: 08/13/17 08:59 Last Infusion: 06/14/17 09:30 Dose: Infused Lactobacillus Rhamnosus (Culturelle) 1 each PO DAILY [facility] Stop: 08/08/17 08:59 Last Admin: 06/14/17 09:17 Dose: 1 each Lactulose (Cephulac) 30 gm GT Q6HR [facility] Stop: 08/08/17 17:59 Last Admin: 06/14/17 12:08 Dose: 30 gm Levetiracetam (Keppra) 1,000 mg GT Q8HR [facility] Stop: 08/06/17 20:59 Last Admin: 06/14/17 13:00 Dose: 1,000 mg Magnesium Hydroxide (Milk Of Magnesia) 30 ml GT PRN PRN Reason: Constipation Stop: 08/06/17 19:17 Magnesium Oxide (Mag-Oxide) 400 mg GT DAILY [facility] Stop: 08/07/17 08:59 Last Admin: 06/14/17 09:17 Dose: 400 mg Metoprolol Tartrate (Lopressor) 100 mg GT Q12HR [facility] Stop: 08/06/17 20:59 Last Admin: 06/14/17 09:19 Dose: Not Given Miscellaneous (Vancomycin Iv Per Pharmacy) 1 ea PRN PRN PRN Reason: PROTOCOL Stop: 08/07/17 07:59 Miscellaneous (Probiotic Screen) 1 [facility] PRN PRN PRN Reason: PROTOCOL Stop: 08/07/17 10:42 Phytonadione (Mephyton) 10 mg GT DAILY [facility] Stop: 08/07/17 19:59 Last Admin: 06/14/17 09:20 Dose: 10 mg Potassium Chloride (Potassium Chloride Elixir) 20 meq GT TID [facility] Stop: 08/12/17 13:59 Last Admin: 06/14/17 14:22 Dose: 20 meq Propranolol HCl (Inderal) 20 mg GT TID [facility] Stop: 08/06/17 20:59 Last Admin: 06/14/17 14:00 Dose: Not Given Pyridoxine HCl (Vitamin B6) 100 mg GT DAILY [facility] Stop: 08/07/17 08:59 Last Admin: 06/14/17 09:20 Dose: 100 mg Rifaximin (Xifaxan) 500 mg PO BID [facility] Stop: 08/07/17 16:59 Last Admin: 08/19/17 09:22 Dose: 500 mg Sodium Phosphate (Fleet Enema) 135 ml RC Q48H PRN PRN Reason: IF DULCOLAX IS INEFFECTIVE Stop: 08/06/17 19:17 Thiamine HCl (Vitamin B1) 100 mg GT DAILY [facility] Stop: 08/07/17 08:59 Last Admin: 06/14/17 09:17 Dose: 100 mg Valproate Sodium (Depakene) 500 mg GT TID [facility] PRN Reason: Protocol Stop: 08/06/17 20:59 Last Admin: 06/14/17 14:22 Dose: 500 mg General: Alert, No acute distress HEENT: Atraumatic, PERRLA, EOMI, Mucous membr. moist/pink Neck: Supple, +2 carotid pulse wo bruit Cardiovascular: Regular rate, Normal S1, Normal S2 Lungs: Clear to auscultation Abdomen: Bowel sounds, Soft Extremities: no Edema Neurological: Sensation intact Skin: no Rash Psych/Mental Status: Mood NL - Procedures Procedures: Procedures Procedure Code Date RESPIRATORY VENTILATION, GREATER THAN 96 CONSECUTIVE HOURS [id number] 06/07/17 Assessment/Plan - Problem List Patient Problems: All Active Problems ELEVATED NA+, AND BUN LEVELS (Acute) - Assessment Assessment: Hypernatremia RFVD Sepsis etio? CLD Thrombocytopenia Anemia of CD Hypokalemia - Plan Plan: Lab - Result Diagrams 06/09/17 09:30 06/09/17 05:07 Current Medications Albuterol/Ipratropium (Duoneb Neb) 3 ml HHN Q4HR [facility] Stop: 08/06/17 19:59 Last Admin: 06/09/17 11:08 Dose: 3 ml Albuterol/Ipratropium (Duoneb Neb) 3 ml HHN Q4HRT [facility] Stop: 08/07/17 18:59 Amlodipine Besylate (Norvasc) 5 mg GT Q12HR [facility] Stop: 08/06/17 20:59 Last Admin: 06/09/17 10:05 Dose: 5 mg Artificial Tears (Artificial Tears Ophth Soln) 2 drop EACH EYE Q6H PRN PRN Reason: eye dryness Stop: 08/06/17 20:54 Atorvastatin Calcium (Lipitor) 10 mg GT HS [facility] PRN Reason: Protocol Stop: 08/06/17 20:59 Last Admin: 06/08/17 21:32 Dose: 10 mg Bisacodyl (Dulcolax 10 Mg Supp) 10 mg RC DAILY PRN PRN Reason: Constipation Stop: 08/06/17 19:17 Budesonide (Pulmicort) 0.5 mg HHN BIDRT [facility] Stop: 08/07/17 18:59 Last Admin: 06/08/17 19:10 Dose: 0.5 mg Calcium/Vitamin D (Oscal W/Vitamin D) 1 tab GT DAILY [facility] Stop: 08/07/17 08:59 Last Admin: 06/09/17 10:05 Dose: 1 tab Chlorhexidine Gluconate (Peridex) 15 ml MM Q12HR [facility] Stop: 08/06/17 20:59 Last Admin: 06/09/17 09:00 Dose: 15 ml Clonazepam (Klonopin) 2 mg GT DAILY [facility] Stop: 08/07/17 08:59 Last Admin: 06/09/17 10:05 Dose: 2 mg Docusate Sodium (Colace) 100 mg GT BID [facility] Stop: 08/06/17 20:59 Last Admin: 06/09/17 09:00 Dose: Not Given Ferrous Sulfate (Iron) 300 mg GT BID [facility] Stop: 08/06/17 20:59 Last Admin: 06/09/17 10:03 Dose: 300 mg Folic Acid (Folate) 2.5 mg GT DAILY [facility] Stop: 08/07/17 08:59 Last Admin: 06/09/17 10:05 Dose: 2.5 mg Hydralazine HCl (Apresoline) 50 mg GT Q8HR [facility] Stop: 08/06/17 20:59 Last Admin: 06/09/17 12:56 Dose: 50 mg Cefepime HCl 1 gm/ Dextrose 50 mls @ 100 mls/hr IV Q8H [facility] Stop: 08/07/17 00:59 Last Infusion: 06/09/17 09:30 Dose: Infused Vancomycin HCl 1.25 gm/ Sodium (Chloride) 250 mls @ 165 mls/hr IV Q12H [facility] Stop: 08/07/17 09:59 Last Infusion: 06/09/17 11:31 Dose: Infused Dextrose (D5w) 1,000 mls @ 150 mls/hr IV .Q6H40M [facility] Stop: 08/07/17 09:37 Last Admin: 06/09/17 07:33 Dose: 150 mls/hr Lactobacillus Rhamnosus (Culturelle) 1 each PO DAILY [facility] Stop: 08/08/17 08:59 Last Admin: 06/09/17 10:04 Dose: 1 each Lactulose (Cephulac) 30 gm GT Q8HR [facility] Stop: 08/06/17 20:59 Last Admin: 06/09/17 12:56 Dose: Not Given Levetiracetam (Keppra) 1,000 mg GT Q8HR [facility] Stop: 08/06/17 20:59 Last Admin: 06/09/17 12:56 Dose: 1,000 mg Magnesium Hydroxide (Milk Of Magnesia) 30 ml GT HS PRN PRN Reason: Constipation Stop: 08/06/17 19:17 Magnesium Oxide (Mag-Oxide) 400 mg GT DAILY [facility] Stop: 08/07/17 08:59 Last Admin: 06/09/17 10:04 Dose: 400 mg Metoprolol Tartrate (Lopressor) 100 mg GT Q12HR [facility] Stop: 08/06/17 20:59 Last Admin: 06/09/17 10:04 Dose: 100 mg Miscellaneous (Vancomycin Iv Per Pharmacy) 1 ea PRN PRN PRN Reason: PROTOCOL Stop: 08/07/17 07:59 Miscellaneous (Probiotic Screen) 1 [facility] PRN PRN PRN Reason: PROTOCOL Stop: 08/07/17 10:42 Phytonadione (Mephyton) 10 mg GT DAILY [facility] Stop: 08/07/17 19:59 Last Admin: 06/09/17 10:06 Dose: 10 mg Potassium Chloride (Potassium Chloride Elixir) 20 meq GT BID [facility] Stop: 08/07/17 08:59 Last Admin: 06/09/17 11:30 Dose: 20 meq Propranolol HCl (Inderal) 20 mg GT TID [facility] Stop: 08/06/17 20:59 Last Admin: 06/09/17 10:03 Dose: 20 mg Pyridoxine HCl (Vitamin B6) 100 mg GT DAILY [facility] Stop: 08/07/17 08:59 Last Admin: 06/09/17 10:05 Dose: 100 mg Rifaximin (Xifaxan) 500 mg PO BID [facility] Stop: 08/07/17 16:59 Last Admin: 06/09/17 10:06 Dose: 500 mg Sodium Phosphate (Fleet Enema) 135 ml RC Q48H PRN PRN Reason: IF DULCOLAX IS INEFFECTIVE Stop: 08/06/17 19:17 Thiamine HCl (Vitamin B1) 100 mg GT DAILY [facility] Stop: 08/07/17 08:59 Last Admin: 06/09/17 10:05 Dose: 100 mg Valproate Sodium (Depakene) 500 mg GT TID [facility] PRN Reason: Protocol Stop: 08/06/17 20:59 Last Admin: 06/09/17 10:03 Dose: 500 mg CXR: CM, B/L ATx electrolytes has improved dc ivf since Na now 133 F/U electrolytes, cbc Lab - Result Diagrams 06/10/17 04:40 06/10/17 04:40 Nutritional Asmnt/Malnutr-PDOC - Dietary Evaluation Malnutrition Findings (Please click <Entered> for more info): Nutritional Asmnt/Malnutrition Start: 06/09/17 11: 00 Text: Status: Complete Freq: Document 06/09/17 13:09 [facility] (Rec: 06/09/17 13:27 [facility] [id number]) Nutritional Asmnt/Malnutrition Patient General Information Nutritional Screening High Risk Screening Diagnosis Sepsis, UTI, right and left lower lobe infiltrate, pneumonia Pertinent Medical Hx/Surgical Hx Alcohol problem, liver disease , cirrhosis of the liver, hepatic comas, seizures, trachestomy, PEG, asthma, COPD Subjective Information Pt is a 52-year-old male from [facility] admitted with chief complaint of shortness of breath and falling oxygen saturation. Pt has tracheostomy to ventilator. Pt was unable to provide nutritional hx. Pt appears well nourished with no signs of muscle or fat depletion. Order to resume tube feeding; bag of Novosource Renal at bedside not yet started. Abdomen Ultrasound 06/09 notes some abdominal ascites. Current Diet Order/ Nutrition Support Novosource Renal at 55 ml/hr = 2640kcals, 120gm protein, 946ml free water Patient / S.O Can't verbalize diet edu Pertinent Medications Oscal with Vitamin D, Cefepime , D5w, Iron, Folate, Culturelle, MagOxide, Mephyton , KCl Elixir, Vitamin B6, Vitamin B1, Depakene, Vancomycin Pertinent Labs (06/09) Na 148H (improving), K 3L, Alkaline Phosphatase 171H, Ammonia 64H, Albumin 3.3L Nutritional Hx/Data Height 1.68 m Height (Calculated Centimeters) 167.6 Current Weight (lbs) 76.657 kg Weight (Calculated Kilograms) 76.7 Weight (Calculated Grams) 50500.1 Usual body Weight (lbs) 168 % Usual Body Weight 100 [place] Body Weight 142 % [place] Body Weight 119 Recent Weight Change No Weight Status Overweight GI Symptoms GI Symptoms Diarrhea Difficult in: Chewing Swallowing Food Allergies No Usual diet at home Nepro 1.8 (237 ml) QID 0900, 1300, 1700, 2100, sugar free ProStat 30 ml Skin Integrity/Comment: Vitor 12. Skin intact. Estimated Nutritional Goals BEE in Kcals: Using Current wt Calories/Kcals/Kg Based on current wt 76.8 kg with consideration of sepsis: Kcals Calculated 2470-0785 kcals/day (27-32 kcals/kg) to prevent wt gain with overwt status Protein: Using Current wt Protein g/kg: Based on current wt 76.8 kg with consideration of sepsis: Protein Calculated 92-115 gm/day (1.2-1.5 gm/kg) Fluid: ml Per MD/DO due to abnormal electrolytes Nutritional Problem 1. Problem Problem Excessive intake from enteral nutrition related to Etiology increased energy intake from calorically dense tube feeding formula as evidenced by Signs/Symptoms: current tube feeding meets 104 % of higher end of estimated calories needs. Malnutrition Alert Protein-Calorie Malnutrition N/A Is there a minimum of two criteria No selected? Query Text:Check all the applicable criteria. A minimum of two criteria are recommended for diagnosis of either severe or non-severe malnutrition. Malnutrition Related to Morbid Obesity Malnutrition related to morbid obesity No Intervention/Recommendation Recommendations by RD Decrease Calorie Intake Comments 1. Recommend decrease tube feeding Novosource Renal at goal rate of 50 ml/hr to provide 2400 kcals, 109 gm protein, and 860 ml free water per day. Monitor renal labs to prioritize protein needs. Expected Outcomes/Goals Expected Outcomes/Goals Provide pt with 100% of estimated nutritional needs. Physician Parameters for PEM Serum Albumin (g/dl) 3.1 - 3.4 (Mild)
[2017-06-14] MEDS: Atorvastatin Calcium 10 MG TAB GT SCH (20:41)
--- NOTE | 2017-06-14 20:44 | Progress Notes ---
DATE: 06/14/2017 PROBLEM LIST: 1. Oyild-qo-ldjarsd respiratory failure. 2. Bilateral effusion with infiltrate. 3. Multi-drug resistant organisms. SYMPTOMS: Nil. The patient is awake, restless, and fidgety. No respiratory distress, etc. PHYSICAL EXAMINATION: VITAL SIGNS: Recorded temperature is afebrile, BP is 110/60, saturation 100% on 30%. NECK: Veins not visualized. CHEST: Shows diminished air entry with occasional rhonchi. HEART: Regular. ABDOMEN: Soft, nontender. LABORATORY DATA: The patient's chest x-ray shows clearing on the right side with some haziness noted in the left basal area. Other laboratory studies: White count is 3.6, hemoglobin 8.8 with platelets of 70. Electrolytes are okay with ammonia of 83. ASSESSMENT: The patient clinically is status quo, slowly improving. PLANS AND SUGGESTIONS: We will continue current treatment, antibiotic and we will see how he does in the next few days and go from there. JOB# [id number]
[2017-06-15] MEDS: Albuterol/Ipratropium Neb 3 ML AERS HHN SCH ×6 (03:24→23:01)
[2017-06-15 05:19] LABS: % EOSINOPHILS 2.9 % (0.0-5.0); % LYMPHOCYTES 22.2 % (20.0-50.0); % MONOCYTES 24.6 % (2.0-10.0); % NEUTROPHILS 50.2 % (40.0-80.0); HEMATOCRIT 27.8 % (39.0-49.0); HEMOGLOBIN 9.4 gm/dL (13.2-17.3); MEAN CELL VOLUME 96.3 fl (80-99); MEAN CORPUSCULAR HEMOGLOBIN 32.5 pg (26.0-30.0); MEAN CORPUSCULAR HGB CONC 33.7 pg (28.0-36.0); MEAN PLATELET VOLUME 9.4 fl; NEUTROPHILE ABSOLUTE 2.5 Th/cmm (1.8-8.0); PLATELET COUNT 34 Th/cmm (150-400); RED BLOOD COUNT 2.89 Mil/cmm (4.30-5.70); RED CELL DISTRIBUTION WIDTH 16.3 % (11.5-20.0); WHITE BLOOD COUNT 5.2 Th/cmm (4.8-10.8)
[2017-06-15] MEDS: Lactulose 10 Gm/15 mL 30mL UDC GT SCH ×3 (05:23→17:14)
[2017-06-15] MEDS: Levetiracetam 500 mg/5mL 5mL UDC GT SCH ×3 (05:27→21:00)
--- NOTE | 2017-06-15 06:58 | General Progress Note ---
Subjective - Review of Systems Events since last encounter: patient awake, restless no change from previous day Subjective: on vent, afebrile nad Objective - Results Result Diagrams: 06/15/17 04:30 06/14/17 05:00 Recent Labs: Laboratory Last Values WBC 5.2 Th/cmm (4.8-10.8) D 06/15/17 04:30 RBC 2.89 Mil/cmm (4.30-5.70) L 06/15/17 04:30 Hgb 9.4 gm/dL (13.2-17.3) L 06/15/17 04:30 Hct 27.8 % (39.0-49.0) L 06/15/17 04:30 MCV 96.3 fl (80-99) 06/15/17 04:30 MCH 32.5 pg (26.0-30.0) H 06/15/17 04:30 MCHC Differential 33.7 pg (28.0-36.0) 06/15/17 04:30 RDW 16.3 % (11.5-20.0) 06/15/17 04:30 Plt Count 34 Th/cmm (150-400) L D 06/15/17 04:30 MPV 9.4 fl 06/15/17 04:30 Neutrophils % 50.2 % (40.0-80.0) 06/15/17 04:30 Band Neutrophils % 4 % (0-10) 06/14/17 05:00 Lymphocytes % 22.2 % (20.0-50.0) 06/15/17 04:30 Monocytes % 24.6 % (2.0-10.0) H 06/15/17 04:30 Eosinophils % 2.9 % (0.0-5.0) 06/15/17 04:30 Basophils % 0.3 % (0.0-2.0) 06/10/17 04:40 Neutrophils (Manual) 63 % (40-80) 06/14/17 05:00 Lymphocytes 15 % (20-50) L 06/14/17 05:00 Monocytes 13 % (2-10) H 06/14/17 05:00 Eosinophils 5 % (0-5) 06/14/17 05:00 Basophils 0 % (0-3) 06/14/17 05:00 Metamyelocytes 2 % (0-0) H 06/13/17 07:20 Myelocytes 1 % 06/13/17 07:20 Nucleated RBCs 1.0 % (0-0) H 06/08/17 04:59 Platelet Estimate DECREASED PLATELETS (NORMAL) 06/14/17 05:00 Platelet Morphology NORMAL (NORMAL) 06/14/17 05:00 Anisocytosis 1+ 06/13/17 07:20 RBC Morph Micro Appear NORMAL (NORMAL) 06/14/17 05:00 Specimen Source ARTERIAL 06/10/17 08:43 Sample Site Left Radial 06/10/17 08:43 pH 7.46 (7.35-7.45) H 06/10/17 08:43 pCO2 36.0 mmHg (35.0-45.0) 06/10/17 08:43 pO2 92.0 mmHg (80.0-100.0) 06/10/17 08:43 HCO3 26.4 mEq/L (20.0-26.0) H 06/10/17 08:43 Base Excess 1.9 mEq/L (-3.0-3.0) 06/10/17 08:43 O2 Saturation 98.0 % (92.0-100.0) 06/10/17 08:43 Jose L Test POSITIVE 06/10/17 08:43 Vent Rate 12 06/10/17 08:43 Inspired O2 40 06/10/17 08:43 Tidal Volume 500 06/10/17 08:43 PEEP 5 06/10/17 08:43 Pressure (ins/psv/peep) N/A 06/10/17 08:43 Critical Value SAURABH 06/10/17 08:43 Sodium 133 mEq/L (136-145) L 06/14/17 05:00 Potassium 3.8 mEq/L (3.5-5.1) 06/14/17 05:00 Chloride 105 mEq/L (98-107) 06/14/17 05:00 Carbon Dioxide 25.4 mEq/L (21.0-31.0) 06/14/17 05:00 Anion Gap 6.4 (7.0-16.0) L 06/14/17 05:00 BUN 9 mg/dL (7-25) 06/14/17 05:00 Creatinine 0.3 mg/dL (0.7-1.3) L 06/14/17 05:00 Est GFR ( Amer) > 60.0 ml/min (>90) 06/14/17 05:00 Est GFR (Non-Af Amer) > 60.0 ml/min 06/14/17 05:00 BUN/Creatinine Ratio 30.0 06/14/17 05:00 Glucose 99 mg/dL (70-105) 06/14/17 05:00 Plasma/Ser Osmolality 313 mOsmol/kg (275-295) H 06/09/17 05:07 Whole Bld Lactic Acid 1.51 mmol/L (0.60-1.99) 06/08/17 04:59 Calcium 8.7 mg/dL (8.6-10.3) 06/14/17 05:00 Phosphorus 2.7 mg/dL (2.5-5.0) 06/08/17 04:59 Magnesium 1.6 mg/dL (1.9-2.7) L 06/14/17 05:00 Iron 71 ug/dL (38-169) 06/08/17 04:59 TIBC 173 ug/dL (250-450) L 06/08/17 04:59 Iron Saturation 41 % (15-55) 06/08/17 04:59 Unsaturated IBC 102 ug/dL (111-343) L 06/08/17 04:59 Ferritin 303 ng/mL (30-400) 06/08/17 04:59 Total Bilirubin 0.8 mg/dL (0.3-1.0) 06/09/17 05:07 Direct Bilirubin 0.40 mg/dL (0.0-0.2) H 06/09/17 05:07 AST 34 U/L (13-39) 06/09/17 05:07 ALT 20 U/L (7-52) 06/09/17 05:07 Alkaline Phosphatase 171 U/L (34-104) H 06/09/17 05:07 Ammonia 83 umol/L (16-53) H 06/14/17 05:00 Troponin I 0.01 ng/mL (0.01-0.05) 06/07/17 13:28 B-Natriuretic Peptide 91.8 pg/mL (5.0-100.0) 06/07/17 13:28 Total Protein 6.8 gm/dL (6.0-8.3) 06/09/17 05:07 Albumin 2.3 gm/dL (4.2-5.5) L 06/09/17 05:07 Globulin 4.5 gm/dL 06/09/17 05:07 Albumin/Globulin Ratio 0.5 (1.0-1.8) L 06/09/17 05:07 Vitamin B12 >1999 pg/mL (211-946) H 06/08/17 04:59 Folic Acid >20.0 ng/mL (>3.0) 06/08/17 04:59 Urine Source RANDOM 06/07/17 13:25 Urine Color NISA 06/07/17 13:25 Urine Clarity CLOUDY (CLEAR) 06/07/17 13:25 Urine pH 5.5 (4.6 - 8.0) 06/07/17 13:25 Ur Specific [place] 1.020 (1.005-1.030) 06/07/17 13:25 Urine Protein >=300 mg/dL (NEGATIVE) 06/07/17 13:25 Urine Glucose (UA) NEGATIVE mg/dL (NEGATIVE) 06/07/17 13:25 Urine Ketones 15 mg/dL (NEGATIVE) H 06/07/17 13:25 Urine Blood LARGE (NEGATIVE) H 06/07/17 13:25 Urine Nitrate POSITIVE (NEGATIVE) H 06/07/17 13:25 Urine Bilirubin MODERATE (NEGATIVE) H 06/07/17 13:25 Urine Urobilinogen 2.0 E.U./dL (0.2 - 1.0) 06/07/17 13:25 Ur Leukocyte Esterase MODERATE (NEGATIVE) H 06/07/17 13:25 Urine RBC >100 /hpf (0-5) H 06/07/17 13:25 Urine WBC 2-5 /hpf (0-5) H 06/07/17 13:25 Ur Epithelial Cells OCCASIONAL /lpf (FEW) 06/07/17 13:25 Urine Bacteria FEW /hpf (NONE SEEN) 06/07/17 13:25 Urine Osmolality 776 mOsmol/kg 06/09/17 05:53 Ur Random Sodium 119 mmol/L 06/08/17 18:16 Stool Occult Blood NEGATIVE (NEGATIVE) 06/12/17 17:30 Vancomycin Trough 16.1 ug/mL (10-20) 06/13/17 07:20 Blood Type O POSITIVE 06/09/17 09:30 Antibody Screen NEGATIVE 06/09/17 09:30 - Physical Exam Vitals and I&O: Vital Signs Temp 97.5 F 06/15/17 04:00 Pulse 76 06/15/17 06:00 Resp 17 06/15/17 06:00 BP 110/66 06/15/17 06:00 Pulse Ox 99 06/15/17 06:00 Intake & Output 06/14/17 06/14/17 06/15/17 06:59 18:59 06:59 Intake Total 860 2250 1150 Output Total 800 1400 1400 Balance 60 850 -250 Weight (lbs) 79.016 kg 78.925 kg 78.925 kg Intake: Intake, IV Amount 100 1450 450 Colistimethate 75 mg In 100 100 100 Sodium Chloride 0.9% 100 ml @ 100 mls/hr IV Q12HR [facility] Rx#:[id number] Meropenem 1 gm In Sodium 100 100 Chloride 0.9% 100 ml @ 100 mls/hr IV Q12H [facility] Rx #:[id number] Sodium Chloride 0.45% 1, 1000 000 ml @ 40 mls/hr IV . Q24H [facility] Rx#:[id number] Vancomycin HCl 1.25 gm In 250 250 Sodium Chloride 0.9% 250 ml @ 165 mls/hr IV Q12H [facility] Rx#:[id number] Tube Feeding 600 600 600 Other 160 200 100 Output: Urine 800 1100 700 Other 300 700 Other: # Bowel Movements 4 Stool Characteristics Liquid Liquid Brown Brown Active Medications: Current Medications Albuterol/Ipratropium (Duoneb Neb) 3 ml HHN Q4HR [facility] Stop: 08/06/17 19:59 Last Admin: 06/15/17 03:24 Dose: 3 ml Albuterol/Ipratropium (Duoneb Neb) 3 ml HHN Q4HRT [facility] Stop: 08/07/17 18:59 Last Admin: 06/14/17 23:01 Dose: 3 ml Amlodipine Besylate (Norvasc) 5 mg GT Q12HR [facility] Stop: 08/06/17 20:59 Last Admin: 06/14/17 20:40 Dose: 5 mg Artificial Tears (Artificial Tears Ophth Soln) 2 drop EACH EYE Q6H PRN PRN Reason: eye dryness Stop: 08/06/17 20:54 Last Admin: 06/12/17 01:03 Dose: 2 drop Atorvastatin Calcium (Lipitor) 10 mg GT HS [facility] PRN Reason: Protocol Stop: 08/06/17 20:59 Last Admin: 06/14/17 20:41 Dose: 10 mg Bisacodyl (Dulcolax 10 Mg Supp) 10 mg RC DAILY PRN PRN Reason: Constipation Stop: 08/06/17 19:17 Budesonide (Pulmicort) 0.5 mg HHN BIDRT [facility] Stop: 08/07/17 18:59 Last Admin: 06/14/17 19:36 Dose: 0.5 mg Calcium/Vitamin D (Oscal W/Vitamin D) 1 tab GT DAILY [facility] Stop: 08/07/17 08:59 Last Admin: 06/14/17 09:17 Dose: 1 tab Chlorhexidine Gluconate (Peridex) 15 ml MM 0800,2000 [facility] Stop: 08/08/17 19:59 Last Admin: 06/14/17 20:42 Dose: 15 ml Clonazepam (Klonopin) 2 mg GT DAILY [facility] Stop: 08/07/17 08:59 Last Admin: 06/14/17 09:17 Dose: 2 mg Folic Acid (Folate) 2.5 mg GT DAILY [facility] Stop: 08/07/17 08:59 Last Admin: 06/14/17 09:17 Dose: 2.5 mg Hydralazine HCl (Apresoline) 50 mg GT Q8HR [facility] Stop: 08/06/17 20:59 Last Admin: 06/15/17 05:24 Dose: Not Given Vancomycin HCl 1.25 gm/ Sodium (Chloride) 250 mls @ 165 mls/hr IV Q12H [facility] Stop: 08/07/17 09:59 Last Infusion: 06/15/17 00:05 Dose: Infused Colistimethate Sodium 75 mg/ (Sodium Chloride) 100 mls @ 100 mls/hr IV Q12HR [facility] Stop: 08/10/17 20:59 Last Infusion: 06/14/17 21:38 Dose: Infused Meropenem 1 gm/ Sodium (Chloride) 100 mls @ 100 mls/hr IV Q12H [facility] Stop: 08/13/17 08:59 Last Infusion: 06/14/17 22:40 Dose: Infused Lactobacillus Rhamnosus (Culturelle) 1 each PO DAILY [facility] Stop: 08/08/17 08:59 Last Admin: 06/14/17 09:17 Dose: 1 each Lactulose (Cephulac) 30 gm GT Q6HR [facility] Stop: 08/08/17 17:59 Last Admin: 06/15/17 05:23 Dose: 30 gm Levetiracetam (Keppra) 1,000 mg GT Q8HR [facility] Stop: 08/06/17 20:59 Last Admin: 06/15/17 05:27 Dose: 1,000 mg Lorazepam (Ativan) 1 mg IVP Q6H PRN; Protocol PRN Reason: Agitation Stop: 08/13/17 23:17 Last Admin: 06/14/17 23:41 Dose: 1 mg Magnesium Hydroxide (Milk Of Magnesia) 30 ml GT HS PRN PRN Reason: Constipation Stop: 08/06/17 19:17 Magnesium Oxide (Mag-Oxide) 400 mg GT DAILY [facility] Stop: 08/07/17 08:59 Last Admin: 06/14/17 09:17 Dose: 400 mg Metoprolol Tartrate (Lopressor) 100 mg GT Q12HR [facility] Stop: 08/06/17 20:59 Last Admin: 06/14/17 21:40 Dose: 100 mg Miscellaneous (Vancomycin Iv Per Pharmacy) 1 ea PRN PRN PRN Reason: PROTOCOL Stop: 08/07/17 07:59 Miscellaneous (Probiotic Screen) 1 ea PRN PRN PRN Reason: PROTOCOL Stop: 08/07/17 10:42 Phytonadione (Mephyton) 10 mg GT DAILY [facility] Stop: 08/07/17 19:59 Last Admin: 06/14/17 09:20 Dose: 10 mg Potassium Chloride (Potassium Chloride Elixir) 20 meq GT TID [facility] Stop: 08/12/17 13:59 Last Admin: 06/14/17 20:40 Dose: 20 meq Propranolol HCl (Inderal) 20 mg GT TID [facility] Stop: 08/06/17 20:59 Last Admin: 06/14/17 21:39 Dose: Not Given Pyridoxine HCl (Vitamin B6) 100 mg GT DAILY [facility] Stop: 08/07/17 08:59 Last Admin: 06/14/17 09:20 Dose: 100 mg Rifaximin (Xifaxan) 500 mg PO BID [facility] Stop: 08/07/17 16:59 Last Admin: 06/14/17 16:54 Dose: 500 mg Sodium Phosphate (Fleet Enema) 135 ml RC Q48H PRN PRN Reason: IF DULCOLAX IS INEFFECTIVE Stop: 08/06/17 19:17 Thiamine HCl (Vitamin B1) 100 mg GT DAILY [facility] Stop: 08/07/17 08:59 Last Admin: 06/14/17 09:17 Dose: 100 mg Valproate Sodium (Depakene) 500 mg GT TID [facility] PRN Reason: Protocol Stop: 08/06/17 20:59 Last Admin: 06/14/17 20:40 Dose: 500 mg General: Alert, No acute distress HEENT: Atraumatic, PERRLA, EOMI, Mucous membr. moist/pink Neck: Supple, +2 carotid pulse wo bruit Cardiovascular: Regular rate, Normal S1, Normal S2 Lungs: Clear to auscultation Abdomen: Bowel sounds, Soft Extremities: no Edema Neurological: Sensation intact Skin: no Rash Psych/Mental Status: Mood NL - Procedures Procedures: Procedures Procedure Code Date RESPIRATORY VENTILATION, GREATER THAN 96 CONSECUTIVE HOURS [id number] 06/07/17 Assessment/Plan - Problem List Patient Problems: All Active Problems ELEVATED NA+, AND BUN LEVELS (Acute) - Assessment Assessment: s/p respiratory failure pnumonia s/p trch and peg trmors h/o alcoholism h/o sizures - Plan Plan: iv antibiotics vent support continue current plan of care Nutritional Asmnt/Malnutr-PDOC - Dietary Evaluation Malnutrition Findings (Please click <Entered> for more info): Nutritional Asmnt/Malnutrition Start: 06/09/17 11: 00 Text: Status: Complete Freq: Document 06/09/17 13:09 [facility] (Rec: 06/09/17 13:27 [facility] [id number]) Nutritional Asmnt/Malnutrition Patient General Information Nutritional Screening High Risk Screening Diagnosis Sepsis, UTI, right and left lower lobe infiltrate, pneumonia Pertinent Medical Hx/Surgical Hx Alcohol problem, liver disease , cirrhosis of the liver, hepatic comas, seizures, trachestomy, PEG, asthma, COPD Subjective Information Pt is a 52-year-old male from [facility] admitted with chief complaint of shortness of breath and falling oxygen saturation. Pt has tracheostomy to ventilator. Pt was unable to provide nutritional hx. Pt appears well nourished with no signs of muscle or fat depletion. Order to resume tube feeding; bag of Novosource Renal at bedside not yet started. Abdomen Ultrasound 06/09 notes some abdominal ascites. Current Diet Order/ Nutrition Support Novosource Renal at 55 ml/hr = 2640kcals, 120gm protein, 946ml free water Patient / S.O Can't verbalize diet edu Pertinent Medications Oscal with Vitamin D, Cefepime , D5w, Iron, Folate, Culturelle, MagOxide, Mephyton , KCl Elixir, Vitamin B6, Vitamin B1, Depakene, Vancomycin Pertinent Labs (06/09) Na 148H (improving), K 3L, Alkaline Phosphatase 171H, Ammonia 64H, Albumin 3.3L Nutritional Hx/Data Height 1.68 m Height (Calculated Centimeters) 167.6 Current Weight (lbs) 76.657 kg Weight (Calculated Kilograms) 76.7 Weight (Calculated Grams) 48619.1 Usual body Weight (lbs) 168 % Usual Body Weight 100 [place] Body Weight 142 % [place] Body Weight 119 Recent Weight Change No Weight Status Overweight GI Symptoms GI Symptoms Diarrhea Difficult in: Chewing Swallowing Food Allergies No Usual diet at home Nepro 1.8 (237 ml) QID 0900, 1300, 1700, 2100, sugar free ProStat 30 ml Skin Integrity/Comment: Vitor Thomas. Skin intact. Estimated Nutritional Goals BEE in Kcals: Using Current wt Calories/Kcals/Kg Based on current wt 76.8 kg with consideration of sepsis: Kcals Calculated 6149-1242 kcals/day (27-32 kcals/kg) to prevent wt gain with overwt status Protein: Using Current wt Protein g/kg: Based on current wt 76.8 kg with consideration of sepsis: Protein Calculated 92-115 gm/day (1.2-1.5 gm/kg) Fluid: ml Per MD/DO due to abnormal electrolytes Nutritional Problem 1. Problem Problem Excessive intake from enteral nutrition related to Etiology increased energy intake from calorically dense tube feeding formula as evidenced by Signs/Symptoms: current tube feeding meets 104 % of higher end of estimated calories needs. Malnutrition Alert Protein-Calorie Malnutrition N/A Is there a minimum of two criteria No selected? Query Text:Check all the applicable criteria. A minimum of two criteria are recommended for diagnosis of either severe or non-severe malnutrition. Malnutrition Related to Morbid Obesity Malnutrition related to morbid obesity No Intervention/Recommendation Recommendations by RD Decrease Calorie Intake Comments 1. Recommend decrease tube feeding Novosource Renal at goal rate of 50 ml/hr to provide 2400 kcals, 109 gm protein, and 860 ml free water per day. Monitor renal labs to prioritize protein needs. Expected Outcomes/Goals Expected Outcomes/Goals Provide pt with 100% of estimated nutritional needs. Physician Parameters for PEM Serum Albumin (g/dl) 3.1 - 3.4 (Mild)
[2017-06-15] MEDS: Budesonide 0.5 Mg/2 mL Ud HHN SCH ×2 (07:11→18:54)
[2017-06-15] MEDS: Potassium Chloride Elixir 20 mEq /15 mL UDC GT SCH ×3 (09:07→21:00)
[2017-06-15] MEDS: Lactobacillus Rhamnosus 10 Billion CFU Capsule PO SCH (09:09)
[2017-06-15] MEDS: Calcium Carb/Vit D 500 mg/200 U Tab GT SCH (09:09)
[2017-06-15] MEDS: Chlorhexidine Gluconate 0.12% 15mL Mouthwash MM SCH ×2 (09:10→20:00)
--- NOTE | 2017-06-15 13:54 | General Progress Note ---
Subjective - Review of Systems Service Date: 06/15/17 Subjective: awake, on vent Objective - Results Result Diagrams: 06/15/17 04:30 06/14/17 05:00 Recent Labs: Laboratory Last Values WBC 5.2 Th/cmm (4.8-10.8) D 06/15/17 04:30 RBC 2.89 Mil/cmm (4.30-5.70) L 06/15/17 04:30 Hgb 9.4 gm/dL (13.2-17.3) L 06/15/17 04:30 Hct 27.8 % (39.0-49.0) L 06/15/17 04:30 MCV 96.3 fl (80-99) 06/15/17 04:30 MCH 32.5 pg (26.0-30.0) H 06/15/17 04:30 MCHC Differential 33.7 pg (28.0-36.0) 06/15/17 04:30 RDW 16.3 % (11.5-20.0) 06/15/17 04:30 Plt Count 34 Th/cmm (150-400) L D 06/15/17 04:30 MPV 9.4 fl 06/15/17 04:30 Neutrophils % 50.2 % (40.0-80.0) 06/15/17 04:30 Band Neutrophils % 4 % (0-10) 06/14/17 05:00 Lymphocytes % 22.2 % (20.0-50.0) 06/15/17 04:30 Monocytes % 24.6 % (2.0-10.0) H 06/15/17 04:30 Eosinophils % 2.9 % (0.0-5.0) 06/15/17 04:30 Basophils % 0.3 % (0.0-2.0) 06/10/17 04:40 Neutrophils (Manual) 63 % (40-80) 06/14/17 05:00 Lymphocytes 15 % (20-50) L 06/14/17 05:00 Monocytes 13 % (2-10) H 06/14/17 05:00 Eosinophils 5 % (0-5) 06/14/17 05:00 Basophils 0 % (0-3) 06/14/17 05:00 Metamyelocytes 2 % (0-0) H 06/13/17 07:20 Myelocytes 1 % 06/13/17 07:20 Nucleated RBCs 1.0 % (0-0) H 06/08/17 04:59 Platelet Estimate DECREASED PLATELETS (NORMAL) 06/14/17 05:00 Platelet Morphology NORMAL (NORMAL) 06/14/17 05:00 Anisocytosis 1+ 06/13/17 07:20 RBC Morph Micro Appear NORMAL (NORMAL) 06/14/17 05:00 Specimen Source ARTERIAL 06/10/17 08:43 Sample Site Left Radial 06/10/17 08:43 pH 7.46 (7.35-7.45) H 06/10/17 08:43 pCO2 36.0 mmHg (35.0-45.0) 06/10/17 08:43 pO2 92.0 mmHg (80.0-100.0) 06/10/17 08:43 HCO3 26.4 mEq/L (20.0-26.0) H 06/10/17 08:43 Base Excess 1.9 mEq/L (-3.0-3.0) 06/10/17 08:43 O2 Saturation 98.0 % (92.0-100.0) 06/10/17 08:43 Jose L Test POSITIVE 06/10/17 08:43 Vent Rate 12 06/10/17 08:43 Inspired O2 40 06/10/17 08:43 Tidal Volume 500 06/10/17 08:43 PEEP 5 06/10/17 08:43 Pressure (ins/psv/peep) N/A 06/10/17 08:43 Critical Value SAURABH 06/10/17 08:43 Sodium 133 mEq/L (136-145) L 06/14/17 05:00 Potassium 3.8 mEq/L (3.5-5.1) 06/14/17 05:00 Chloride 105 mEq/L (98-107) 06/14/17 05:00 Carbon Dioxide 25.4 mEq/L (21.0-31.0) 06/14/17 05:00 Anion Gap 6.4 (7.0-16.0) L 06/14/17 05:00 BUN 9 mg/dL (7-25) 06/14/17 05:00 Creatinine 0.3 mg/dL (0.7-1.3) L 06/14/17 05:00 Est GFR ( Amer) > 60.0 ml/min (>90) 06/14/17 05:00 Est GFR (Non-Af Amer) > 60.0 ml/min 06/14/17 05:00 BUN/Creatinine Ratio 30.0 06/14/17 05:00 Glucose 99 mg/dL (70-105) 06/14/17 05:00 Plasma/Ser Osmolality 313 mOsmol/kg (275-295) H 06/09/17 05:07 Whole Bld Lactic Acid 1.51 mmol/L (0.60-1.99) 06/08/17 04:59 Calcium 8.7 mg/dL (8.6-10.3) 06/14/17 05:00 Phosphorus 2.7 mg/dL (2.5-5.0) 06/08/17 04:59 Magnesium 1.6 mg/dL (1.9-2.7) L 06/14/17 05:00 Iron 71 ug/dL (38-169) 06/08/17 04:59 TIBC 173 ug/dL (250-450) L 06/08/17 04:59 Iron Saturation 41 % (15-55) 06/08/17 04:59 Unsaturated IBC 102 ug/dL (111-343) L 06/08/17 04:59 Ferritin 303 ng/mL (30-400) 06/08/17 04:59 Total Bilirubin 0.8 mg/dL (0.3-1.0) 06/09/17 05:07 Direct Bilirubin 0.40 mg/dL (0.0-0.2) H 06/09/17 05:07 AST 34 U/L (13-39) 06/09/17 05:07 ALT 20 U/L (7-52) 06/09/17 05:07 Alkaline Phosphatase 171 U/L (34-104) H 06/09/17 05:07 Ammonia 83 umol/L (16-53) H 06/14/17 05:00 Troponin I 0.01 ng/mL (0.01-0.05) 06/07/17 13:28 B-Natriuretic Peptide 91.8 pg/mL (5.0-100.0) 06/07/17 13:28 Total Protein 6.8 gm/dL (6.0-8.3) 06/09/17 05:07 Albumin 2.3 gm/dL (4.2-5.5) L 06/09/17 05:07 Globulin 4.5 gm/dL 06/09/17 05:07 Albumin/Globulin Ratio 0.5 (1.0-1.8) L 06/09/17 05:07 Vitamin B12 >1999 pg/mL (211-946) H 06/08/17 04:59 Folic Acid >20.0 ng/mL (>3.0) 06/08/17 04:59 Urine Source RANDOM 06/07/17 13:25 Urine Color NISA 06/07/17 13:25 Urine Clarity CLOUDY (CLEAR) 06/07/17 13:25 Urine pH 5.5 (4.6 - 8.0) 06/07/17 13:25 Ur Specific [place] 1.020 (1.005-1.030) 06/07/17 13:25 Urine Protein >=300 mg/dL (NEGATIVE) 06/07/17 13:25 Urine Glucose (UA) NEGATIVE mg/dL (NEGATIVE) 06/07/17 13:25 Urine Ketones 15 mg/dL (NEGATIVE) H 06/07/17 13:25 Urine Blood LARGE (NEGATIVE) H 06/07/17 13:25 Urine Nitrate POSITIVE (NEGATIVE) H 06/07/17 13:25 Urine Bilirubin MODERATE (NEGATIVE) H 06/07/17 13:25 Urine Urobilinogen 2.0 E.U./dL (0.2 - 1.0) 06/07/17 13:25 Ur Leukocyte Esterase MODERATE (NEGATIVE) H 06/07/17 13:25 Urine RBC >100 /hpf (0-5) H 06/07/17 13:25 Urine WBC 2-5 /hpf (0-5) H 06/07/17 13:25 Ur Epithelial Cells OCCASIONAL /lpf (FEW) 06/07/17 13:25 Urine Bacteria FEW /hpf (NONE SEEN) 06/07/17 13:25 Urine Osmolality 776 mOsmol/kg 06/09/17 05:53 Ur Random Sodium 119 mmol/L 06/08/17 18:16 Stool Occult Blood NEGATIVE (NEGATIVE) 06/12/17 17:30 Vancomycin Trough 16.1 ug/mL (10-20) 06/13/17 07:20 Blood Type O POSITIVE 06/09/17 09:30 Antibody Screen NEGATIVE 06/09/17 09:30 - Physical Exam Vitals and I&O: Vital Signs Temp 97.7 F 06/15/17 12:00 Pulse 59 06/15/17 13:09 Resp 24 06/15/17 12:36 BP 94/52 06/15/17 12:00 Pulse Ox 100 06/15/17 13:09 Intake & Output 06/14/17 06/15/17 06/15/17 18:59 06:59 18:59 Intake Total 2250 1150 Output Total 1400 1400 Balance 850 -250 Weight (lbs) 78.925 kg 78.925 kg Intake: Intake, IV Amount 1450 450 Colistimethate 75 mg In 100 100 Sodium Chloride 0.9% 100 ml @ 100 mls/hr IV Q12HR [facility] Rx#:[id number] Meropenem 1 gm In Sodium 100 100 Chloride 0.9% 100 ml @ 100 mls/hr IV Q12H [place] Rx #:[id number] Sodium Chloride 0.45% 1, 1000 000 ml @ 40 mls/hr IV . Q24H [place] Rx#:[id number] Vancomycin HCl 1.25 gm In 250 250 Sodium Chloride 0.9% 250 ml @ 165 mls/hr IV Q12H [facility] Rx#:[id number] Tube Feeding 600 600 Other 200 100 Output: Urine 1100 700 Other 300 700 Other: Stool Characteristics Liquid Brown Active Medications: Current Medications Albuterol/Ipratropium (Duoneb Neb) 3 ml HHN Q4HR [place] Stop: 08/06/17 19:59 Last Admin: 06/15/17 11:17 Dose: 3 ml Albuterol/Ipratropium (Duoneb Neb) 3 ml HHN Q4HRT [place] Stop: 08/07/17 18:59 Last Admin: 06/14/17 23:01 Dose: 3 ml Amlodipine Besylate (Norvasc) 5 mg GT Q12HR [place] Stop: 08/06/17 20:59 Last Admin: 06/15/17 09:10 Dose: 5 mg Artificial Tears (Artificial Tears Ophth Soln) 2 drop EACH EYE Q6H PRN PRN Reason: eye dryness Stop: 08/06/17 20:54 Last Admin: 06/12/17 01:03 Dose: 2 drop Atorvastatin Calcium (Lipitor) 10 mg GT HS [place] PRN Reason: Protocol Stop: 08/06/17 20:59 Last Admin: 06/14/17 20:41 Dose: 10 mg Bisacodyl (Dulcolax 10 Mg Supp) 10 mg RC DAILY PRN PRN Reason: Constipation Stop: 08/06/17 19:17 Budesonide (Pulmicort) 0.5 mg HHN BIDRT [place] Stop: 08/07/17 18:59 Last Admin: 06/15/17 07:11 Dose: 0.5 mg Calcium/Vitamin D (Oscal W/Vitamin D) 1 tab GT DAILY [place] Stop: 08/07/17 08:59 Last Admin: 06/15/17 09:09 Dose: 1 tab Chlorhexidine Gluconate (Peridex) 15 ml MM 0800,1999 [place] Stop: 08/08/17 19:59 Last Admin: 06/15/17 09:10 Dose: 15 ml Clonazepam (Klonopin) 2 mg GT DAILY [place] Stop: 08/07/17 08:59 Last Admin: 06/15/17 09:09 Dose: 2 mg Folic Acid (Folate) 2.5 mg GT DAILY [place] Stop: 08/07/17 08:59 Last Admin: 06/15/17 09:09 Dose: 2.5 mg Hydralazine HCl (Apresoline) 50 mg GT Q8HR [place] Stop: 08/06/17 20:59 Last Admin: 06/15/17 05:24 Dose: Not Given Vancomycin HCl 1.25 gm/ Sodium (Chloride) 250 mls @ 165 mls/hr IV Q12H [place] Stop: 08/07/17 09:59 Last Admin: 06/15/17 10:15 Dose: 165 mls/hr Colistimethate Sodium 75 mg/ (Sodium Chloride) 100 mls @ 100 mls/hr IV Q12HR [place] Stop: 08/10/17 20:59 Last Admin: 06/15/17 09:40 Dose: 100 mls/hr Meropenem 1 gm/ Sodium (Chloride) 100 mls @ 100 mls/hr IV Q12H [place] Stop: 08/13/17 08:59 Last Admin: 06/15/17 09:05 Dose: 100 mls/hr Lactobacillus Rhamnosus (Culturelle) 1 each PO DAILY [place] Stop: 08/08/17 08:59 Last Admin: 06/15/17 09:09 Dose: 1 each Lactulose (Cephulac) 30 gm GT Q6HR [place] Stop: 08/08/17 17:59 Last Admin: 06/15/17 05:23 Dose: 30 gm Levetiracetam (Keppra) 1,000 mg GT Q8HR [place] Stop: 08/06/17 20:59 Last Admin: 06/15/17 13:24 Dose: 1,000 mg Lorazepam (Ativan) 1 mg IVP Q6H PRN; Protocol PRN Reason: Agitation Stop: 08/13/17 23:17 Last Admin: 06/15/17 09:08 Dose: 1 mg Magnesium Hydroxide (Milk Of Magnesia) 30 ml GT HS PRN PRN Reason: Constipation Stop: 08/06/17 19:17 Magnesium Oxide (Mag-Oxide) 400 mg GT DAILY [place] Stop: 08/07/17 08:59 Last Admin: 06/15/17 09:08 Dose: 400 mg Metoprolol Tartrate (Lopressor) 100 mg GT Q12HR [place] Stop: 08/06/17 20:59 Last Admin: 06/15/17 09:09 Dose: 100 mg Miscellaneous (Vancomycin Iv Per Pharmacy) 1 ea PRN PRN PRN Reason: PROTOCOL Stop: 08/07/17 07:59 Miscellaneous (Probiotic Screen) 1 ea PRN PRN PRN Reason: PROTOCOL Stop: 08/07/17 10:42 Phytonadione (Mephyton) 10 mg GT DAILY [place] Stop: 08/07/17 19:59 Last Admin: 06/15/17 09:10 Dose: 10 mg Potassium Chloride (Potassium Chloride Elixir) 20 meq GT TID [place] Stop: 08/12/17 13:59 Last Admin: 06/15/17 13:21 Dose: 20 meq Propranolol HCl (Inderal) 20 mg GT TID [place] Stop: 08/06/17 20:59 Last Admin: 06/15/17 09:10 Dose: 20 mg Pyridoxine HCl (Vitamin B6) 100 mg GT DAILY [place] Stop: 08/07/17 08:59 Last Admin: 06/15/17 09:09 Dose: 100 mg Rifaximin (Xifaxan) 500 mg PO BID [place] Stop: 08/07/17 16:59 Last Admin: 06/15/17 09:11 Dose: 500 mg Sodium Phosphate (Fleet Enema) 135 ml RC Q48H PRN PRN Reason: IF DULCOLAX IS INEFFECTIVE Stop: 08/06/17 19:17 Thiamine HCl (Vitamin B1) 100 mg GT DAILY [facility] Stop: 08/07/17 08:59 Last Admin: 06/15/17 09:09 Dose: 100 mg Valproate Sodium (Depakene) 500 mg GT TID [place] PRN Reason: Protocol Stop: 08/06/17 20:59 Last Admin: 06/15/17 13:21 Dose: 500 mg General: Alert, No acute distress HEENT: Atraumatic, PERRLA, EOMI, Mucous membr. moist/pink Neck: Supple, +2 carotid pulse wo bruit Cardiovascular: Regular rate, Normal S1, Normal S2 Lungs: Clear to auscultation, Other Abdomen: Bowel sounds, Soft Extremities: no Edema Neurological: Sensation intact Skin: no Rash Psych/Mental Status: Mood NL - Procedures Procedures: Procedures Procedure Code Date RESPIRATORY VENTILATION, GREATER THAN 96 CONSECUTIVE HOURS [id number] 06/07/17 Assessment/Plan - Problem List Patient Problems: All Active Problems ELEVATED NA+, AND BUN LEVELS (Acute) - Assessment Assessment: Hypernatremia RFVD Sepsis etio? CLD Thrombocytopenia Anemia of CD Hypokalemia - Plan Plan: Lab - Result Diagrams 06/09/17 09:30 06/09/17 05:07 Current Medications Albuterol/Ipratropium (Duoneb Neb) 3 ml HHN Q4HR [facility] Stop: 08/06/17 19:59 Last Admin: 06/09/17 11:08 Dose: 3 ml Albuterol/Ipratropium (Duoneb Neb) 3 ml HHN Q4HRT [facility] Stop: 08/07/17 18:59 Amlodipine Besylate (Norvasc) 5 mg GT Q12HR [place] Stop: 08/06/17 20:59 Last Admin: 06/09/17 10:05 Dose: 5 mg Artificial Tears (Artificial Tears Ophth Soln) 2 drop EACH EYE Q6H PRN PRN Reason: eye dryness Stop: 08/06/17 20:54 Atorvastatin Calcium (Lipitor) 10 mg GT HS [place] PRN Reason: Protocol Stop: 08/06/17 20:59 Last Admin: 06/08/17 21:32 Dose: 10 mg Bisacodyl (Dulcolax 10 Mg Supp) 10 mg RC DAILY PRN PRN Reason: Constipation Stop: 08/06/17 19:17 Budesonide (Pulmicort) 0.5 mg HHN BIDRT [place] Stop: 08/07/17 18:59 Last Admin: 06/08/17 19:10 Dose: 0.5 mg Calcium/Vitamin D (Oscal W/Vitamin D) 1 tab GT DAILY [place] Stop: 08/07/17 08:59 Last Admin: 06/09/17 10:05 Dose: 1 tab Chlorhexidine Gluconate (Peridex) 15 ml MM Q12HR [place] Stop: 08/06/17 20:59 Last Admin: 06/09/17 09:00 Dose: 15 ml Clonazepam (Klonopin) 2 mg GT DAILY [place] Stop: 08/07/17 08:59 Last Admin: 06/09/17 10:05 Dose: 2 mg Docusate Sodium (Colace) 100 mg GT BID [place] Stop: 08/06/17 20:59 Last Admin: 06/09/17 09:00 Dose: Not Given Ferrous Sulfate (Iron) 300 mg GT BID [place] Stop: 08/06/17 20:59 Last Admin: 06/09/17 10:03 Dose: 300 mg Folic Acid (Folate) 2.5 mg GT DAILY [place] Stop: 08/07/17 08:59 Last Admin: 06/09/17 10:05 Dose: 2.5 mg Hydralazine HCl (Apresoline) 50 mg GT Q8HR [place] Stop: 08/06/17 20:59 Last Admin: 06/09/17 12:56 Dose: 50 mg Cefepime HCl 1 gm/ Dextrose 50 mls @ 100 mls/hr IV Q8H [place] Stop: 08/07/17 00:59 Last Infusion: 06/09/17 09:30 Dose: Infused Vancomycin HCl 1.25 gm/ Sodium (Chloride) 250 mls @ 165 mls/hr IV Q12H [place] Stop: 08/07/17 09:59 Last Infusion: 06/09/17 11:31 Dose: Infused Dextrose (D5w) 1,000 mls @ 150 mls/hr IV .Q6H40M [place] Stop: 08/07/17 09:37 Last Admin: 06/09/17 07:33 Dose: 150 mls/hr Lactobacillus Rhamnosus (Culturelle) 1 each PO DAILY [place] Stop: 08/08/17 08:59 Last Admin: 06/09/17 10:04 Dose: 1 each Lactulose (Cephulac) 30 gm GT Q8HR [place] Stop: 08/06/17 20:59 Last Admin: 06/09/17 12:56 Dose: Not Given Levetiracetam (Keppra) 1,000 mg GT Q8HR [place] Stop: 08/06/17 20:59 Last Admin: 06/09/17 12:56 Dose: 1,000 mg Magnesium Hydroxide (Milk Of Magnesia) 30 ml GT HS PRN PRN Reason: Constipation Stop: 08/06/17 19:17 Magnesium Oxide (Mag-Oxide) 400 mg GT DAILY [place] Stop: 08/07/17 08:59 Last Admin: 06/09/17 10:04 Dose: 400 mg Metoprolol Tartrate (Lopressor) 100 mg GT Q12HR [place] Stop: 08/06/17 20:59 Last Admin: 06/09/17 10:04 Dose: 100 mg Miscellaneous (Vancomycin Iv Per Pharmacy) 1 ea PRN PRN PRN Reason: PROTOCOL Stop: 08/07/17 07:59 Miscellaneous (Probiotic Screen) 1 ea PRN PRN PRN Reason: PROTOCOL Stop: 08/07/17 10:42 Phytonadione (Mephyton) 10 mg GT DAILY [place] Stop: 08/07/17 19:59 Last Admin: 06/09/17 10:06 Dose: 10 mg Potassium Chloride (Potassium Chloride Elixir) 20 meq GT BID [place] Stop: 08/07/17 08:59 Last Admin: 06/09/17 11:30 Dose: 20 meq Propranolol HCl (Inderal) 20 mg GT TID [place] Stop: 08/06/17 20:59 Last Admin: 06/09/17 10:03 Dose: 20 mg Pyridoxine HCl (Vitamin B6) 100 mg GT DAILY [place] Stop: 08/07/17 08:59 Last Admin: 06/09/17 10:05 Dose: 100 mg Rifaximin (Xifaxan) 500 mg PO BID [place] Stop: 08/07/17 16:59 Last Admin: 06/09/17 10:06 Dose: 500 mg Sodium Phosphate (Fleet Enema) 135 ml RC Q48H PRN PRN Reason: IF DULCOLAX IS INEFFECTIVE Stop: 08/06/17 19:17 Thiamine HCl (Vitamin B1) 100 mg GT DAILY [place] Stop: 08/07/17 08:59 Last Admin: 06/09/17 10:05 Dose: 100 mg Valproate Sodium (Depakene) 500 mg GT TID [place] PRN Reason: Protocol Stop: 08/06/17 20:59 Last Admin: 06/09/17 10:03 Dose: 500 mg CXR: CM, B/L ATx electrolytes has improved dc ivf since Na now 133 F/U electrolytes, cbc Lab - Result Diagrams 06/10/17 04:40 06/10/17 04:40 Nutritional Asmnt/Malnutr-PDOC - Dietary Evaluation Malnutrition Findings (Please click <Entered> for more info): Nutritional Asmnt/Malnutrition Start: 06/09/17 11: 00 Text: Status: Complete Freq: Document 06/09/17 13:09 [facility] (Rec: 06/09/17 13:27 [facility] [id number]) Nutritional Asmnt/Malnutrition Patient General Information Nutritional Screening High Risk Screening Diagnosis Sepsis, UTI, right and left lower lobe infiltrate, pneumonia Pertinent Medical Hx/Surgical Hx Alcohol problem, liver disease , cirrhosis of the liver, hepatic comas, seizures, trachestomy, PEG, asthma, COPD Subjective Information Pt is a 52-year-old male from [facility] admitted with chief complaint of shortness of breath and falling oxygen saturation. Pt has tracheostomy to ventilator. Pt was unable to provide nutritional hx. Pt appears well nourished with no signs of muscle or fat depletion. Order to resume tube feeding; bag of Novosource Renal at bedside not yet started. Abdomen Ultrasound 06/09 notes some abdominal ascites. Current Diet Order/ Nutrition Support Novosource Renal at 55 ml/hr = 2640kcals, 120gm protein, 946ml free water Patient / S.O Can't verbalize diet edu Pertinent Medications Oscal with Vitamin D, Cefepime , D5w, Iron, Folate, Culturelle, MagOxide, Mephyton , KCl Elixir, Vitamin B6, Vitamin B1, Depakene, Vancomycin Pertinent Labs (06/09) Na 148H (improving), K 3L, Alkaline Phosphatase 171H, Ammonia 64H, Albumin 3.3L Nutritional Hx/Data Height 1.68 m Height (Calculated Centimeters) 167.6 Current Weight (lbs) 76.657 kg Weight (Calculated Kilograms) 76.7 Weight (Calculated Grams) 28002.1 Usual body Weight (lbs) 168 % Usual Body Weight 100 [place] Body Weight 142 % [place] Body Weight 119 Recent Weight Change No Weight Status Overweight GI Symptoms GI Symptoms Diarrhea Difficult in: Chewing Swallowing Food Allergies No Usual diet at home Nepro 1.8 (237 ml) QID 0900, 1300, 1700, 2100, sugar free ProStat 30 ml Skin Integrity/Comment: Vitor 12. Skin intact. Estimated Nutritional Goals BEE in Kcals: Using Current wt Calories/Kcals/Kg Based on current wt 76.8 kg with consideration of sepsis: Kcals Calculated 5082-0922 kcals/day (27-32 kcals/kg) to prevent wt gain with overwt status Protein: Using Current wt Protein g/kg: Based on current wt 76.8 kg with consideration of sepsis: Protein Calculated 92-115 gm/day (1.2-1.5 gm/kg) Fluid: ml Per MD/DO due to abnormal electrolytes Nutritional Problem 1. Problem Problem Excessive intake from enteral nutrition related to Etiology increased energy intake from calorically dense tube feeding formula as evidenced by Signs/Symptoms: current tube feeding meets 104 % of higher end of estimated calories needs. Malnutrition Alert Protein-Calorie Malnutrition N/A Is there a minimum of two criteria No selected? Query Text:Check all the applicable criteria. A minimum of two criteria are recommended for diagnosis of either severe or non-severe malnutrition. Malnutrition Related to Morbid Obesity Malnutrition related to morbid obesity No Intervention/Recommendation Recommendations by RD Decrease Calorie Intake Comments 1. Recommend decrease tube feeding Novosource Renal at goal rate of 50 ml/hr to provide 2400 kcals, 109 gm protein, and 860 ml free water per day. Monitor renal labs to prioritize protein needs. Expected Outcomes/Goals Expected Outcomes/Goals Provide pt with 100% of estimated nutritional needs. Physician Parameters for PEM Serum Albumin (g/dl) 3.1 - 3.4 (Mild)
--- NOTE | 2017-06-15 15:44 | Infectious Disease Prog Note ---
Infectious Disease Subjective - Review of Systems Service Date: 06/15/17 Subjective: cc vemnt dependent pn hpi- pt d/w staff cultures reviewed ros nmo fver o/e vs chest claer abd soft ext no edema dx pn vent depebndent htn Infectious Disease Objective - Results Result Diagrams: 06/15/17 04:30 06/14/17 05:00 Recent Labs: Laboratory Last Values WBC 5.2 Th/cmm (4.8-10.8) D 06/15/17 04:30 RBC 2.89 Mil/cmm (4.30-5.70) L 06/15/17 04:30 Hgb 9.4 gm/dL (13.2-17.3) L 06/15/17 04:30 Hct 27.8 % (39.0-49.0) L 06/15/17 04:30 MCV 96.3 fl (80-99) 06/15/17 04:30 MCH 32.5 pg (26.0-30.0) H 06/15/17 04:30 MCHC Differential 33.7 pg (28.0-36.0) 06/15/17 04:30 RDW 16.3 % (11.5-20.0) 06/15/17 04:30 Plt Count 34 Th/cmm (150-400) L D 06/15/17 04:30 MPV 9.4 fl 06/15/17 04:30 Neutrophils % 50.2 % (40.0-80.0) 06/15/17 04:30 Band Neutrophils % 4 % (0-10) 06/14/17 05:00 Lymphocytes % 22.2 % (20.0-50.0) 06/15/17 04:30 Monocytes % 24.6 % (2.0-10.0) H 06/15/17 04:30 Eosinophils % 2.9 % (0.0-5.0) 06/15/17 04:30 Basophils % 0.3 % (0.0-2.0) 06/10/17 04:40 Neutrophils (Manual) 63 % (40-80) 06/14/17 05:00 Lymphocytes 15 % (20-50) L 06/14/17 05:00 Monocytes 13 % (2-10) H 06/14/17 05:00 Eosinophils 5 % (0-5) 06/14/17 05:00 Basophils 0 % (0-3) 06/14/17 05:00 Metamyelocytes 2 % (0-0) H 06/13/17 07:20 Myelocytes 1 % 06/13/17 07:20 Nucleated RBCs 1.0 % (0-0) H 06/08/17 04:59 Platelet Estimate DECREASED PLATELETS (NORMAL) 06/14/17 05:00 Platelet Morphology NORMAL (NORMAL) 06/14/17 05:00 Anisocytosis 1+ 06/13/17 07:20 RBC Morph Micro Appear NORMAL (NORMAL) 06/14/17 05:00 Specimen Source ARTERIAL 06/10/17 08:43 Sample Site Left Radial 06/10/17 08:43 pH 7.46 (7.35-7.45) H 06/10/17 08:43 pCO2 36.0 mmHg (35.0-45.0) 06/10/17 08:43 pO2 92.0 mmHg (80.0-100.0) 06/10/17 08:43 HCO3 26.4 mEq/L (20.0-26.0) H 06/10/17 08:43 Base Excess 1.9 mEq/L (-3.0-3.0) 06/10/17 08:43 O2 Saturation 98.0 % (92.0-100.0) 06/10/17 08:43 Jose L Test POSITIVE 06/10/17 08:43 Vent Rate 12 06/10/17 08:43 Inspired O2 40 06/10/17 08:43 Tidal Volume 500 06/10/17 08:43 PEEP 5 06/10/17 08:43 Pressure (ins/psv/peep) N/A 06/10/17 08:43 Critical Value SAURABH 06/10/17 08:43 Sodium 133 mEq/L (136-145) L 06/14/17 05:00 Potassium 3.8 mEq/L (3.5-5.1) 06/14/17 05:00 Chloride 105 mEq/L (98-107) 06/14/17 05:00 Carbon Dioxide 25.4 mEq/L (21.0-31.0) 06/14/17 05:00 Anion Gap 6.4 (7.0-16.0) L 06/14/17 05:00 BUN 9 mg/dL (7-25) 06/14/17 05:00 Creatinine 0.3 mg/dL (0.7-1.3) L 06/14/17 05:00 Est GFR ( Amer) > 60.0 ml/min (>90) 06/14/17 05:00 Est GFR (Non-Af Amer) > 60.0 ml/min 06/14/17 05:00 BUN/Creatinine Ratio 30.0 06/14/17 05:00 Glucose 99 mg/dL (70-105) 06/14/17 05:00 Plasma/Ser Osmolality 313 mOsmol/kg (275-295) H 06/09/17 05:07 Whole Bld Lactic Acid 1.51 mmol/L (0.60-1.99) 06/08/17 04:59 Calcium 8.7 mg/dL (8.6-10.3) 06/14/17 05:00 Phosphorus 2.7 mg/dL (2.5-5.0) 06/08/17 04:59 Magnesium 1.6 mg/dL (1.9-2.7) L 06/14/17 05:00 Iron 71 ug/dL (38-169) 06/08/17 04:59 TIBC 173 ug/dL (250-450) L 06/08/17 04:59 Iron Saturation 41 % (15-55) 06/08/17 04:59 Unsaturated IBC 102 ug/dL (111-343) L 06/08/17 04:59 Ferritin 303 ng/mL (30-400) 06/08/17 04:59 Total Bilirubin 0.8 mg/dL (0.3-1.0) 06/09/17 05:07 Direct Bilirubin 0.40 mg/dL (0.0-0.2) H 06/09/17 05:07 AST 34 U/L (13-39) 06/09/17 05:07 ALT 20 U/L (7-52) 06/09/17 05:07 Alkaline Phosphatase 171 U/L (34-104) H 06/09/17 05:07 Ammonia 83 umol/L (16-53) H 06/14/17 05:00 Troponin I 0.01 ng/mL (0.01-0.05) 06/07/17 13:28 B-Natriuretic Peptide 91.8 pg/mL (5.0-100.0) 06/07/17 13:28 Total Protein 6.8 gm/dL (6.0-8.3) 06/09/17 05:07 Albumin 2.3 gm/dL (4.2-5.5) L 06/09/17 05:07 Globulin 4.5 gm/dL 06/09/17 05:07 Albumin/Globulin Ratio 0.5 (1.0-1.8) L 06/09/17 05:07 Vitamin B12 >1999 pg/mL (211-946) H 06/08/17 04:59 Folic Acid >20.0 ng/mL (>3.0) 06/08/17 04:59 Urine Source RANDOM 06/07/17 13:25 Urine Color NISA 06/07/17 13:25 Urine Clarity CLOUDY (CLEAR) 06/07/17 13:25 Urine pH 5.5 (4.6 - 8.0) 06/07/17 13:25 Ur Specific [place] 1.020 (1.005-1.030) 06/07/17 13:25 Urine Protein >=300 mg/dL (NEGATIVE) 06/07/17 13:25 Urine Glucose (UA) NEGATIVE mg/dL (NEGATIVE) 06/07/17 13:25 Urine Ketones 15 mg/dL (NEGATIVE) H 06/07/17 13:25 Urine Blood LARGE (NEGATIVE) H 06/07/17 13:25 Urine Nitrate POSITIVE (NEGATIVE) H 06/07/17 13:25 Urine Bilirubin MODERATE (NEGATIVE) H 06/07/17 13:25 Urine Urobilinogen 2.0 E.U./dL (0.2 - 1.0) 06/07/17 13:25 Ur Leukocyte Esterase MODERATE (NEGATIVE) H 06/07/17 13:25 Urine RBC >100 /hpf (0-5) H 06/07/17 13:25 Urine WBC 2-5 /hpf (0-5) H 06/07/17 13:25 Ur Epithelial Cells OCCASIONAL /lpf (FEW) 06/07/17 13:25 Urine Bacteria FEW /hpf (NONE SEEN) 06/07/17 13:25 Urine Osmolality 776 mOsmol/kg 06/09/17 05:53 Ur Random Sodium 119 mmol/L 06/08/17 18:16 Stool Occult Blood NEGATIVE (NEGATIVE) 06/12/17 17:30 Vancomycin Trough 16.1 ug/mL (08-15) 06/13/17 07:20 Blood Type O POSITIVE 06/09/17 09:30 Antibody Screen NEGATIVE 06/09/17 09:30 - Physical Exam Vitals and I&O: Vital Signs Temp 97.7 F 06/15/17 12:00 Pulse 58 06/15/17 15:10 Resp 20 06/15/17 14:58 BP 99/49 06/15/17 14:58 Pulse Ox 100 06/15/17 15:10 Intake & Output 06/14/17 06/15/17 06/15/17 18:59 06:59 18:59 Intake Total 2250 1150 Output Total 1400 1400 Balance 850 -250 Weight (lbs) 78.925 kg 78.925 kg Intake: Intake, IV Amount 1450 450 Colistimethate 75 mg In 100 100 Sodium Chloride 0.9% 100 ml @ 100 mls/hr IV Q12HR [facility] Rx#:[id number] Meropenem 1 gm In Sodium 100 100 Chloride 0.9% 100 ml @ 100 mls/hr IV Q12H [place] Rx #:[id number] Sodium Chloride 0.45% 1, 1000 000 ml @ 40 mls/hr IV . Q24H [facility] Rx#:[id number] Vancomycin HCl 1.25 gm In 250 250 Sodium Chloride 0.9% 250 ml @ 165 mls/hr IV Q12H [facility] Rx#:[id number] Tube Feeding 600 600 Other 200 100 Output: Urine 1100 700 Other 300 700 Other: Stool Characteristics Liquid Brown Active Medications: Current Medications Albuterol/Ipratropium (Duoneb Neb) 3 ml HHN Q4HR [place] Stop: 08/06/17 19:59 Last Admin: 06/15/17 15:10 Dose: 3 ml Albuterol/Ipratropium (Duoneb Neb) 3 ml HHN Q4HRT [place] Stop: 08/07/17 18:59 Last Admin: 06/14/17 23:01 Dose: 3 ml Amlodipine Besylate (Norvasc) 5 mg GT Q12HR [place] Stop: 08/06/17 20:59 Last Admin: 06/15/17 09:10 Dose: 5 mg Artificial Tears (Artificial Tears Ophth Soln) 2 drop EACH EYE Q6H PRN PRN Reason: eye dryness Stop: 08/06/17 20:54 Last Admin: 06/12/17 01:03 Dose: 2 drop Atorvastatin Calcium (Lipitor) 10 mg GT HS [place] PRN Reason: Protocol Stop: 08/06/17 20:59 Last Admin: 06/14/17 20:41 Dose: 10 mg Bisacodyl (Dulcolax 10 Mg Supp) 10 mg RC DAILY PRN PRN Reason: Constipation Stop: 08/06/17 19:17 Budesonide (Pulmicort) 0.5 mg HHN BIDRT [place] Stop: 08/07/17 18:59 Last Admin: 06/15/17 07:11 Dose: 0.5 mg Calcium/Vitamin D (Oscal W/Vitamin D) 1 tab GT DAILY [place] Stop: 08/07/17 08:59 Last Admin: 06/15/17 09:09 Dose: 1 tab Chlorhexidine Gluconate (Peridex) 15 ml MM 0800,2000 [facility] Stop: 08/08/17 19:59 Last Admin: 06/15/17 09:10 Dose: 15 ml Clonazepam (Klonopin) 2 mg GT DAILY [place] Stop: 08/07/17 08:59 Last Admin: 06/15/17 09:09 Dose: 2 mg Folic Acid (Folate) 2.5 mg GT DAILY [place] Stop: 08/07/17 08:59 Last Admin: 06/15/17 09:09 Dose: 2.5 mg Hydralazine HCl (Apresoline) 50 mg GT Q8HR [place] Stop: 08/06/17 20:59 Last Admin: 06/15/17 05:24 Dose: Not Given Vancomycin HCl 1.25 gm/ Sodium (Chloride) 250 mls @ 165 mls/hr IV Q12H [place] Stop: 08/07/17 09:59 Last Admin: 06/15/17 10:15 Dose: 165 mls/hr Colistimethate Sodium 75 mg/ (Sodium Chloride) 100 mls @ 100 mls/hr IV Q12HR [place] Stop: 08/10/17 20:59 Last Admin: 06/15/17 09:40 Dose: 100 mls/hr Meropenem 1 gm/ Sodium (Chloride) 100 mls @ 100 mls/hr IV Q12H [place] Stop: 08/13/17 08:59 Last Admin: 06/15/17 09:05 Dose: 100 mls/hr Lactobacillus Rhamnosus (Culturelle) 1 each PO DAILY [place] Stop: 08/08/17 08:59 Last Admin: 06/15/17 09:09 Dose: 1 each Lactulose (Cephulac) 30 gm GT Q6HR [place] Stop: 08/08/17 17:59 Last Admin: 06/15/17 05:23 Dose: 30 gm Levetiracetam (Keppra) 1,000 mg GT Q8HR [place] Stop: 08/06/17 20:59 Last Admin: 06/15/17 13:24 Dose: 1,000 mg Lorazepam (Ativan) 1 mg IVP Q6H PRN; Protocol PRN Reason: Agitation Stop: 08/13/17 23:17 Last Admin: 06/15/17 09:08 Dose: 1 mg Magnesium Hydroxide (Milk Of Magnesia) 30 ml GT HS PRN PRN Reason: Constipation Stop: 08/06/17 19:17 Magnesium Oxide (Mag-Oxide) 400 mg GT DAILY [place] Stop: 08/07/17 08:59 Last Admin: 06/15/17 09:08 Dose: 400 mg Metoprolol Tartrate (Lopressor) 100 mg GT Q12HR [place] Stop: 08/06/17 20:59 Last Admin: 06/15/17 09:09 Dose: 100 mg Miscellaneous (Vancomycin Iv Per Pharmacy) 1 ea PRN PRN PRN Reason: PROTOCOL Stop: 08/07/17 07:59 Miscellaneous (Probiotic Screen) 1 [facility] PRN PRN PRN Reason: PROTOCOL Stop: 08/07/17 10:42 Phytonadione (Mephyton) 10 mg GT DAILY [place] Stop: 08/07/17 19:59 Last Admin: 06/15/17 09:10 Dose: 10 mg Potassium Chloride (Potassium Chloride Elixir) 20 meq GT TID [place] Stop: 08/12/17 13:59 Last Admin: 06/15/17 13:21 Dose: 20 meq Propranolol HCl (Inderal) 20 mg GT TID [place] Stop: 08/06/17 20:59 Last Admin: 06/15/17 09:10 Dose: 20 mg Pyridoxine HCl (Vitamin B6) 100 mg GT DAILY [place] Stop: 08/07/17 08:59 Last Admin: 06/15/17 09:09 Dose: 100 mg Rifaximin (Xifaxan) 500 mg PO BID [facility] Stop: 08/07/17 16:59 Last Admin: 06/15/17 09:11 Dose: 500 mg Sodium Phosphate (Fleet Enema) 135 ml RC Q48H PRN PRN Reason: IF DULCOLAX IS INEFFECTIVE Stop: 08/06/17 19:17 Thiamine HCl (Vitamin B1) 100 mg GT DAILY [facility] Stop: 08/07/17 08:59 Last Admin: 06/15/17 09:09 Dose: 100 mg Valproate Sodium (Depakene) 500 mg GT TID [place] PRN Reason: Protocol Stop: 08/06/17 20:59 Last Admin: 06/15/17 13:21 Dose: 500 mg - Procedures Procedures: Procedures Procedure Code Date RESPIRATORY VENTILATION, GREATER THAN 96 CONSECUTIVE HOURS [id number] 06/07/17 Infectious Disease Assmt/Plan - Problem List Patient Problems: All Active Problems ELEVATED NA+, AND BUN LEVELS (Acute) Nutritional Asmnt/Malnutr-PDOC - Dietary Evaluation Malnutrition Findings (Please click <Entered> for more info): Nutritional Asmnt/Malnutrition Start: 06/09/17 11: 00 Text: Status: Complete Freq: Document 06/09/17 13:09 [facility] (Rec: 06/09/17 13:27 [facility] [id number]) Nutritional Asmnt/Malnutrition Patient General Information Nutritional Screening High Risk Screening Diagnosis Sepsis, UTI, right and left lower lobe infiltrate, pneumonia Pertinent Medical Hx/Surgical Hx Alcohol problem, liver disease , cirrhosis of the liver, hepatic comas, seizures, trachestomy, PEG, asthma, COPD Subjective Information Pt is a 52-year-old male from [facility] admitted with chief complaint of shortness of breath and falling oxygen saturation. Pt has tracheostomy to ventilator. Pt was unable to provide nutritional hx. Pt appears well nourished with no signs of muscle or fat depletion. Order to resume tube feeding; bag of Novosource Renal at bedside not yet started. Abdomen Ultrasound 06/09 notes some abdominal ascites. Current Diet Order/ Nutrition Support Novosource Renal at 55 ml/hr = 2640kcals, 120gm protein, 946ml free water Patient / S.O Can't verbalize diet edu Pertinent Medications Oscal with Vitamin D, Cefepime , D5w, Iron, Folate, Culturelle, MagOxide, Mephyton , KCl Elixir, Vitamin B6, Vitamin B1, Depakene, Vancomycin Pertinent Labs (06/09) Na 148H (improving), K 3L, Alkaline Phosphatase 171H, Ammonia 64H, Albumin 3.3L Nutritional Hx/Data Height 1.68 m Height (Calculated Centimeters) 167.6 Current Weight (lbs) 76.657 kg Weight (Calculated Kilograms) 76.7 Weight (Calculated Grams) 71888.1 Usual body Weight (lbs) 168 % Usual Body Weight 100 [place] Body Weight 142 % [place] Body Weight 119 Recent Weight Change No Weight Status Overweight GI Symptoms GI Symptoms Diarrhea Difficult in: Chewing Swallowing Food Allergies No Usual diet at home Nepro 1.8 (237 ml) QID 0900, 1300, 1700, 2100, sugar free ProStat 30 ml Skin Integrity/Comment: Vitor 12. Skin intact. Estimated Nutritional Goals BEE in Kcals: Using Current wt Calories/Kcals/Kg Based on current wt 76.8 kg with consideration of sepsis: Kcals Calculated 7017-9885 kcals/day (27-32 kcals/kg) to prevent wt gain with overwt status Protein: Using Current wt Protein g/kg: Based on current wt 76.8 kg with consideration of sepsis: Protein Calculated 92-115 gm/day (1.2-1.5 gm/kg) Fluid: ml Per MD/DO due to abnormal electrolytes Nutritional Problem 1. Problem Problem Excessive intake from enteral nutrition related to Etiology increased energy intake from calorically dense tube feeding formula as evidenced by Signs/Symptoms: current tube feeding meets 104 % of higher end of estimated calories needs. Malnutrition Alert Protein-Calorie Malnutrition N/A Is there a minimum of two criteria No selected? Query Text:Check all the applicable criteria. A minimum of two criteria are recommended for diagnosis of either severe or non-severe malnutrition. Malnutrition Related to Morbid Obesity Malnutrition related to morbid obesity No Intervention/Recommendation Recommendations by RD Decrease Calorie Intake Comments 1. Recommend decrease tube feeding Novosource Renal at goal rate of 50 ml/hr to provide 2400 kcals, 109 gm protein, and 860 ml free water per day. Monitor renal labs to prioritize protein needs. Expected Outcomes/Goals Expected Outcomes/Goals Provide pt with 100% of estimated nutritional needs. Physician Parameters for PEM Serum Albumin (g/dl) 3.1 - 3.4 (Mild)
[2017-06-15] MEDS: Atorvastatin Calcium 10 MG TAB GT SCH (21:00)
--- NOTE | 2017-06-15 23:38 | Progress Notes ---
DATE: 06/15/2017 PROBLEM LIST: 1. Acute on chronic respiratory failure. 2. Pneumonia. 3. Effusion. 4. Hepatic disease with chronic encephalopathy. SYMPTOMS: Nil. The patient is awake, fidgeting around, no meaningful communication could be done. PHYSICAL EXAMINATION: GENERAL: Not in any acute distress. VITAL SIGNS: Afebrile, heart rate is in 150s, blood pressure is in 90s, saturation 100% on 30% of oxygen. ENT: Shows no new changes. CHEST: Shows diminished air entry. No other adventitious breath sounds. HEART: Regular. ABDOMEN: Soft, nontender. LABORATORY DATA: CBC: White count is 5.2, platelet 34. ASSESSMENT: The patient is clinically stable. Respiratory franklin not significantly changed. PLAN AND SUGGESTIONS: We will continue current treatment. We will follow through other x-rays left. Chest x-ray and ammonia level tomorrow and see how it is and go from there. JOB# [id number]
[2017-06-16] MEDS: Albuterol/Ipratropium Neb 3 ML AERS HHN SCH ×6 (02:13→22:36)
[2017-06-16] MEDS: Levetiracetam 500 mg/5mL 5mL UDC GT SCH ×3 (05:00→21:10)
[2017-06-16 05:12] LABS: HEMOGLOBIN 9.9 gm/dL (13.2-17.3); RED BLOOD COUNT 3.02 Mil/cmm (4.30-5.70)
[2017-06-16 05:21] LABS: HEMATOCRIT 29.1 % (39.0-49.0); MEAN CELL VOLUME 96.4 fl (80-99); MEAN CORPUSCULAR HEMOGLOBIN 32.7 pg (26.0-30.0); MEAN PLATELET VOLUME 10.8 fl; RED CELL DISTRIBUTION WIDTH 16.5 % (11.5-20.0)
[2017-06-16 05:27] LABS: WHITE BLOOD COUNT 6.3 Th/cmm (4.8-10.8)
[2017-06-16 05:28] LABS: PLATELET COUNT 68 Th/cmm (150-400)
[2017-06-16 05:33] LABS: ALB/GLOB RATIO 0.5 (1.0-1.8); ALKALINE PHOSPHATASE 184 U/L (34-104); BILIRUBIN,DIRECT 0.29 mg/dL (0.0-0.2); BUN - UREA NITROGEN 12 mg/dL (7-25); CALCIUM SERUM 9.7 mg/dL (8.6-10.3); CARBON DIOXIDE 25.8 mEq/L (21.0-31.0); CHLORIDE 112 mEq/L (98-107); CREATININE - SERUM 0.5 mg/dL (0.7-1.3); GLUCOSE 101 mg/dL (70-105); POTASSIUM SERUM 3.8 mEq/L (3.5-5.1); SGOT 28 U/L (13-39); SGPT/ALT 13 U/L (7-52); SODIUM SERUM 140 mEq/L (136-145)
[2017-06-16] MEDS: Lactulose 10 Gm/15 mL 30mL UDC GT SCH ×4 (06:00→17:32)
[2017-06-16] MEDS: Budesonide 0.5 Mg/2 mL Ud HHN SCH ×2 (07:07→18:51)
[2017-06-16 07:57] LABS: BAND NEUTROPHILE 2 % (0-10); EOSINOPHIL 7 % (0-5); NEUTROPHILS 44 % (40-80); TOTAL CELLS COUNTED 100
[2017-06-16 07:58] LABS: PLATELET ESTIMATE DECREASED PLATELETS (NORMAL); PLATELET MORPHOLOGY PLATELET CLUMPS SEEN (NORMAL)
[2017-06-16] MEDS: Chlorhexidine Gluconate 0.12% 15mL Mouthwash MM SCH ×2 (08:30→21:11)
--- NOTE | 2017-06-16 08:39 | Diagnostic Imaging Report ---
Portable chest x-ray HISTORY: Pneumonia Compared with the prior exam of June 14, 2017, there remains density in the left lower lobe with obscuration of the left hemidiaphragm. Consolidation and/or atelectasis cannot be excluded. The heart remains enlarged. IMPRESSION: 1. No significant change in the cardiopulmonary status as noted above
[2017-06-16] MEDS: Potassium Chloride Elixir 20 mEq /15 mL UDC GT SCH ×3 (09:32→21:00)
[2017-06-16] MEDS: Lactobacillus Rhamnosus 10 Billion CFU Capsule PO SCH (09:32)
[2017-06-16] MEDS: Polyvinyl Alcohol Ophth Soln 15 mL Bottle EACH EYE PRN (09:32)
[2017-06-16] MEDS: Calcium Carb/Vit D 500 mg/200 U Tab GT SCH (09:36)
--- NOTE | 2017-06-16 14:01 | General Progress Note ---
Subjective - Review of Systems Service Date: 06/16/17 Subjective: sleeping, arousable, on vent Objective - Results Result Diagrams: 06/16/17 04:40 06/16/17 04:40 Recent Labs: Laboratory Last Values WBC 6.3 Th/cmm (4.8-10.8) D 06/16/17 04:40 RBC 3.02 Mil/cmm (4.30-5.70) L 06/16/17 04:40 Hgb 9.9 gm/dL (13.2-17.3) L 06/16/17 04:40 Hct 29.1 % (39.0-49.0) L 06/16/17 04:40 MCV 96.4 fl (80-99) 06/16/17 04:40 MCH 32.7 pg (26.0-30.0) H 06/16/17 04:40 MCHC Differential 34.0 pg (28.0-36.0) 06/16/17 04:40 RDW 16.5 % (11.5-20.0) 06/16/17 04:40 Plt Count 68 Th/cmm (150-400) L D 06/16/17 04:40 MPV 10.8 fl 06/16/17 04:40 Neutrophils % 50.2 % (40.0-80.0) 06/15/17 04:30 Band Neutrophils % 2 % (0-10) 06/16/17 04:40 Lymphocytes % 22.2 % (20.0-50.0) 06/15/17 04:30 Monocytes % 24.6 % (2.0-10.0) H 06/15/17 04:30 Eosinophils % 2.9 % (0.0-5.0) 06/15/17 04:30 Basophils % 0.3 % (0.0-2.0) 06/10/17 04:40 Neutrophils (Manual) 44 % (40-80) 06/16/17 04:40 Lymphocytes 35 % (20-50) 06/16/17 04:40 Monocytes 12 % (2-10) H 06/16/17 04:40 Eosinophils 7 % (0-5) H 06/16/17 04:40 Basophils 0 % (0-3) 06/14/17 05:00 Metamyelocytes 2 % (0-0) H 06/13/17 07:20 Myelocytes 1 % 06/13/17 07:20 Nucleated RBCs 1.0 % (0-0) H 06/08/17 04:59 Platelet Estimate DECREASED PLATELETS (NORMAL) 06/16/17 04:40 Platelet Morphology PLATELET CLUMPS SEEN (NORMAL) 06/16/17 04:40 Anisocytosis 1+ 06/13/17 07:20 RBC Morph Micro Appear NORMAL (NORMAL) 06/16/17 04:40 Specimen Source ARTERIAL 06/10/17 08:43 Sample Site Left Radial 06/10/17 08:43 pH 7.46 (7.35-7.45) H 06/10/17 08:43 pCO2 36.0 mmHg (35.0-45.0) 06/10/17 08:43 pO2 92.0 mmHg (80.0-100.0) 06/10/17 08:43 HCO3 26.4 mEq/L (20.0-26.0) H 06/10/17 08:43 Base Excess 1.9 mEq/L (-3.0-3.0) 06/10/17 08:43 O2 Saturation 98.0 % (92.0-100.0) 06/10/17 08:43 Jose L Test POSITIVE 06/10/17 08:43 Vent Rate 12 06/10/17 08:43 Inspired O2 40 06/10/17 08:43 Tidal Volume 500 06/10/17 08:43 PEEP 5 06/10/17 08:43 Pressure (ins/psv/peep) N/A 06/10/17 08:43 Critical Value SAURABH 06/10/17 08:43 Sodium 140 mEq/L (136-145) 06/16/17 04:40 Potassium 3.8 mEq/L (3.5-5.1) 06/16/17 04:40 Chloride 112 mEq/L (98-107) H 06/16/17 04:40 Carbon Dioxide 25.8 mEq/L (21.0-31.0) 06/16/17 04:40 Anion Gap 6.0 (7.0-16.0) L 06/16/17 04:40 BUN 12 mg/dL (7-25) 06/16/17 04:40 Creatinine 0.5 mg/dL (0.7-1.3) L 06/16/17 04:40 Est GFR ( Amer) > 60.0 ml/min (>90) 06/16/17 04:40 Est GFR (Non-Af Amer) > 60.0 ml/min 06/16/17 04:40 BUN/Creatinine Ratio 24.0 06/16/17 04:40 Glucose 101 mg/dL (70-105) 06/16/17 04:40 Plasma/Ser Osmolality 313 mOsmol/kg (275-295) H 06/09/17 05:07 Whole Bld Lactic Acid 1.51 mmol/L (0.60-1.99) 06/08/17 04:59 Calcium 9.7 mg/dL (8.6-10.3) 06/16/17 04:40 Phosphorus 2.7 mg/dL (2.5-5.0) 06/08/17 04:59 Magnesium 1.6 mg/dL (1.9-2.7) L 06/14/17 05:00 Iron 71 ug/dL (38-169) 06/08/17 04:59 TIBC 173 ug/dL (250-450) L 06/08/17 04:59 Iron Saturation 41 % (15-55) 06/08/17 04:59 Unsaturated IBC 102 ug/dL (111-343) L 06/08/17 04:59 Ferritin 303 ng/mL (30-400) 06/08/17 04:59 Total Bilirubin 1.0 mg/dL (0.3-1.0) 06/16/17 04:40 Direct Bilirubin 0.29 mg/dL (0.0-0.2) H 06/16/17 04:40 AST 28 U/L (13-39) 06/16/17 04:40 ALT 13 U/L (7-52) 06/16/17 04:40 Alkaline Phosphatase 184 U/L (34-104) H 06/16/17 04:40 Ammonia 88 umol/L (16-53) H 06/16/17 04:40 Troponin I 0.01 ng/mL (0.01-0.05) 06/07/17 13:28 B-Natriuretic Peptide 91.8 pg/mL (5.0-100.0) 06/07/17 13:28 Total Protein 7.8 gm/dL (6.0-8.3) 06/16/17 04:40 Albumin 2.6 gm/dL (4.2-5.5) L 06/16/17 04:40 Globulin 5.2 gm/dL 06/16/17 04:40 Albumin/Globulin Ratio 0.5 (1.0-1.8) L 06/16/17 04:40 Vitamin B12 >1999 pg/mL (211-946) H 06/08/17 04:59 Folic Acid >20.0 ng/mL (>3.0) 06/08/17 04:59 Urine Source RANDOM 06/07/17 13:25 Urine Color NISA 06/07/17 13:25 Urine Clarity CLOUDY (CLEAR) 06/07/17 13:25 Urine pH 5.5 (4.6 - 8.0) 06/07/17 13:25 Ur Specific [place] 1.020 (1.005-1.030) 06/07/17 13:25 Urine Protein >=300 mg/dL (NEGATIVE) 06/07/17 13:25 Urine Glucose (UA) NEGATIVE mg/dL (NEGATIVE) 06/07/17 13:25 Urine Ketones 15 mg/dL (NEGATIVE) H 06/07/17 13:25 Urine Blood LARGE (NEGATIVE) H 06/07/17 13:25 Urine Nitrate POSITIVE (NEGATIVE) H 06/07/17 13:25 Urine Bilirubin MODERATE (NEGATIVE) H 06/07/17 13:25 Urine Urobilinogen 2.0 E.U./dL (0.2 - 1.0) 06/07/17 13:25 Ur Leukocyte Esterase MODERATE (NEGATIVE) H 06/07/17 13:25 Urine RBC >100 /hpf (0-5) H 06/07/17 13:25 Urine WBC 2-5 /hpf (0-5) H 06/07/17 13:25 Ur Epithelial Cells OCCASIONAL /lpf (FEW) 06/07/17 13:25 Urine Bacteria FEW /hpf (NONE SEEN) 06/07/17 13:25 Urine Osmolality 776 mOsmol/kg 06/09/17 05:53 Ur Random Sodium 119 mmol/L 06/08/17 18:16 Stool Occult Blood NEGATIVE (NEGATIVE) 06/12/17 17:30 Vancomycin Trough 18.6 ug/mL (10-20) 06/16/17 09:00 Blood Type O POSITIVE 06/09/17 09:30 Antibody Screen NEGATIVE 06/09/17 09:30 - Physical Exam Vitals and I&O: Vital Signs Temp 97.5 F 06/16/17 11:00 Pulse 72 06/16/17 13:32 Resp 12 06/16/17 11:00 BP 107/60 06/16/17 13:32 Pulse Ox 100 06/16/17 13:04 Intake & Output 06/15/17 06/16/17 06/16/17 18:59 06:59 18:59 Intake Total 2150 450 200 Output Total 1550 30 Balance 600 420 200 Weight (lbs) 78.925 kg 78.925 kg Intake: Intake, IV Amount 1450 450 200 Colistimethate 75 mg In 100 100 100 Sodium Chloride 0.9% 100 ml @ 100 mls/hr IV Q12HR [facility] Rx#:[id number] Meropenem 1 gm In Sodium 100 100 100 Chloride 0.9% 100 ml @ 100 mls/hr IV Q12H [facility] Rx #:[id number] Sodium Chloride 0.45% 1, 1000 000 ml @ 40 mls/hr IV . Q24H [facility] Rx#:[id number] Vancomycin HCl 1.25 gm In 250 250 Sodium Chloride 0.9% 250 ml @ 165 mls/hr IV Q12H [facility] Rx#:[id number] Tube Feeding 600 Other 100 Output: Urine 650 30 Stool 900 Other: Stool Characteristics Liquid Active Medications: Current Medications Albuterol/Ipratropium (Duoneb Neb) 3 ml HHN Q4HR [facility] Stop: 08/06/17 19:59 Last Admin: 06/16/17 11:04 Dose: 3 ml Albuterol/Ipratropium (Duoneb Neb) 3 ml HHN Q4HRT [facility] Stop: 08/07/17 18:59 Last Admin: 06/15/17 18:54 Dose: 3 ml Amlodipine Besylate (Norvasc) 5 mg GT Q12HR [place] Stop: 08/06/17 20:59 Last Admin: 06/16/17 09:36 Dose: Not Given Artificial Tears (Artificial Tears Ophth Soln) 2 drop EACH EYE Q6H PRN PRN Reason: eye dryness Stop: 08/06/17 20:54 Last Admin: 06/16/17 09:32 Dose: 2 drop Atorvastatin Calcium (Lipitor) 10 mg GT HS [place] PRN Reason: Protocol Stop: 08/06/17 20:59 Last Admin: 06/15/17 21:00 Dose: 10 mg Bisacodyl (Dulcolax 10 Mg Supp) 10 mg RC DAILY PRN PRN Reason: Constipation Stop: 08/06/17 19:17 Budesonide (Pulmicort) 0.5 mg HHN BIDRT [place] Stop: 08/07/17 18:59 Last Admin: 06/16/17 07:07 Dose: 0.5 mg Calcium/Vitamin D (Oscal W/Vitamin D) 1 tab GT DAILY [place] Stop: 08/07/17 08:59 Last Admin: 06/16/17 09:36 Dose: 1 tab Chlorhexidine Gluconate (Peridex) 15 ml MM 0800,1999 [facility] Stop: 08/08/17 19:59 Last Admin: 06/16/17 08:30 Dose: 15 ml Folic Acid (Folate) 2.5 mg GT DAILY [place] Stop: 08/07/17 08:59 Last Admin: 06/16/17 09:32 Dose: 2.5 mg Hydralazine HCl (Apresoline) 50 mg GT Q8HR [place] Stop: 08/06/17 20:59 Last Admin: 06/16/17 13:31 Dose: Not Given Colistimethate Sodium 75 mg/ (Sodium Chloride) 100 mls @ 100 mls/hr IV Q12HR [place] Stop: 08/10/17 20:59 Last Infusion: 06/16/17 10:35 Dose: Infused Meropenem 1 gm/ Sodium (Chloride) 100 mls @ 100 mls/hr IV Q12H [place] Stop: 08/13/17 08:59 Last Infusion: 06/16/17 09:15 Dose: Infused Vancomycin HCl 1.25 gm/ Sodium (Chloride) 250 mls @ 165 mls/hr IV Q12H [facility] Stop: 08/15/17 09:59 Last Admin: 06/16/17 10:55 Dose: 165 mls/hr Lactobacillus Rhamnosus (Culturelle) 1 each PO DAILY [place] Stop: 08/08/17 08:59 Last Admin: 06/16/17 09:32 Dose: 1 each Lactulose (Cephulac) 30 gm GT Q6HR [place] Stop: 08/08/17 17:59 Last Admin: 06/16/17 12:05 Dose: 30 gm Levetiracetam (Keppra) 1,000 mg GT Q8HR [facility] Stop: 08/06/17 20:59 Last Admin: 06/16/17 12:05 Dose: 1,000 mg Lorazepam (Ativan) 1 mg IVP Q6H PRN; Protocol PRN Reason: Agitation Stop: 08/13/17 23:17 Last Admin: 06/16/17 07:50 Dose: 1 mg Magnesium Hydroxide (Milk Of Magnesia) 30 ml GT HS PRN PRN Reason: Constipation Stop: 08/06/17 19:17 Magnesium Oxide (Mag-Oxide) 400 mg GT DAILY [place] Stop: 08/07/17 08:59 Last Admin: 06/16/17 09:33 Dose: 400 mg Metoprolol Tartrate (Lopressor) 100 mg GT Q12HR [place] Stop: 08/06/17 20:59 Last Admin: 06/16/17 09:33 Dose: Not Given Miscellaneous (Vancomycin Iv Per Pharmacy) 1 ea PRN PRN PRN Reason: PROTOCOL Stop: 08/07/17 07:59 Miscellaneous (Probiotic Screen) 1 ea PRN PRN PRN Reason: PROTOCOL Stop: 08/07/17 10:42 Phytonadione (Mephyton) 10 mg GT DAILY [place] Stop: 08/07/17 19:59 Last Admin: 06/16/17 09:30 Dose: 10 mg Potassium Chloride (Potassium Chloride Elixir) 20 meq GT TID [place] Stop: 08/12/17 13:59 Last Admin: 06/16/17 13:31 Dose: 20 meq Propranolol HCl (Inderal) 20 mg GT TID [place] Stop: 08/06/17 20:59 Last Admin: 06/16/17 13:32 Dose: Not Given Pyridoxine HCl (Vitamin B6) 100 mg GT DAILY [place] Stop: 08/07/17 08:59 Last Admin: 06/16/17 09:33 Dose: 100 mg Sodium Phosphate (Fleet Enema) 135 ml RC Q48H PRN PRN Reason: IF DULCOLAX IS INEFFECTIVE Stop: 08/06/17 19:17 Thiamine HCl (Vitamin B1) 100 mg GT DAILY [place] Stop: 08/07/17 08:59 Last Admin: 06/16/17 09:33 Dose: 100 mg Valproate Sodium (Depakene) 500 mg GT TID [place] PRN Reason: Protocol Stop: 08/06/17 20:59 Last Admin: 06/16/17 13:31 Dose: 500 mg General: Alert, No acute distress HEENT: Atraumatic, PERRLA, EOMI, Mucous membr. moist/pink Neck: Supple, +2 carotid pulse wo bruit Cardiovascular: Regular rate, Normal S1, Normal S2 Lungs: Clear to auscultation, Other Abdomen: Bowel sounds, Soft Extremities: no Edema Neurological: Sensation intact Skin: no Rash Psych/Mental Status: Mood NL - Procedures Procedures: Procedures Procedure Code Date RESPIRATORY VENTILATION, GREATER THAN 96 CONSECUTIVE HOURS [id number] 06/07/17 Assessment/Plan - Problem List Patient Problems: All Active Problems ELEVATED NA+, AND BUN LEVELS (Acute) - Assessment Assessment: Hypernatremia RFVD Sepsis etio? CLD Thrombocytopenia Anemia of CD Hypokalemia - Plan Plan: Lab - Result Diagrams 06/09/17 09:30 06/09/17 05:07 Current Medications Albuterol/Ipratropium (Duoneb Neb) 3 ml HHN Q4HR [facility] Stop: 08/06/17 19:59 Last Admin: 06/09/17 11:08 Dose: 3 ml Albuterol/Ipratropium (Duoneb Neb) 3 ml HHN Q4HRT [facility] Stop: 08/07/17 18:59 Amlodipine Besylate (Norvasc) 5 mg GT Q12HR [facility] Stop: 08/06/17 20:59 Last Admin: 06/09/17 10:05 Dose: 5 mg Artificial Tears (Artificial Tears Ophth Soln) 2 drop EACH EYE Q6H PRN PRN Reason: eye dryness Stop: 08/06/17 20:54 Atorvastatin Calcium (Lipitor) 10 mg GT HS [facility] PRN Reason: Protocol Stop: 08/06/17 20:59 Last Admin: 06/08/17 21:32 Dose: 10 mg Bisacodyl (Dulcolax 10 Mg Supp) 10 mg RC DAILY PRN PRN Reason: Constipation Stop: 08/06/17 19:17 Budesonide (Pulmicort) 0.5 mg HHN BIDRT [place] Stop: 08/07/17 18:59 Last Admin: 06/08/17 19:10 Dose: 0.5 mg Calcium/Vitamin D (Oscal W/Vitamin D) 1 tab GT DAILY [place] Stop: 08/07/17 08:59 Last Admin: 06/09/17 10:05 Dose: 1 tab Chlorhexidine Gluconate (Peridex) 15 ml MM Q12HR [facility] Stop: 08/06/17 20:59 Last Admin: 06/09/17 09:00 Dose: 15 ml Clonazepam (Klonopin) 2 mg GT DAILY [place] Stop: 08/07/17 08:59 Last Admin: 06/09/17 10:05 Dose: 2 mg Docusate Sodium (Colace) 100 mg GT BID [place] Stop: 08/06/17 20:59 Last Admin: 06/09/17 09:00 Dose: Not Given Ferrous Sulfate (Iron) 300 mg GT BID [place] Stop: 08/06/17 20:59 Last Admin: 06/09/17 10:03 Dose: 300 mg Folic Acid (Folate) 2.5 mg GT DAILY [place] Stop: 08/07/17 08:59 Last Admin: 06/09/17 10:05 Dose: 2.5 mg Hydralazine HCl (Apresoline) 50 mg GT Q8HR [place] Stop: 08/06/17 20:59 Last Admin: 06/09/17 12:56 Dose: 50 mg Cefepime HCl 1 gm/ Dextrose 50 mls @ 100 mls/hr IV Q8H [facility] Stop: 08/07/17 00:59 Last Infusion: 06/09/17 09:30 Dose: Infused Vancomycin HCl 1.25 gm/ Sodium (Chloride) 250 mls @ 165 mls/hr IV Q12H [facility] Stop: 08/07/17 09:59 Last Infusion: 06/09/17 11:31 Dose: Infused Dextrose (D5w) 1,000 mls @ 150 mls/hr IV .Q6H40M [facility] Stop: 08/07/17 09:37 Last Admin: 06/09/17 07:33 Dose: 150 mls/hr Lactobacillus Rhamnosus (Culturelle) 1 each PO DAILY [place] Stop: 08/08/17 08:59 Last Admin: 06/09/17 10:04 Dose: 1 each Lactulose (Cephulac) 30 gm GT Q8HR [place] Stop: 08/06/17 20:59 Last Admin: 06/09/17 12:56 Dose: Not Given Levetiracetam (Keppra) 1,000 mg GT Q8HR [facility] Stop: 08/06/17 20:59 Last Admin: 06/09/17 12:56 Dose: 1,000 mg Magnesium Hydroxide (Milk Of Magnesia) 30 ml GT HS PRN PRN Reason: Constipation Stop: 08/06/17 19:17 Magnesium Oxide (Mag-Oxide) 400 mg GT DAILY [place] Stop: 08/07/17 08:59 Last Admin: 06/09/17 10:04 Dose: 400 mg Metoprolol Tartrate (Lopressor) 100 mg GT Q12HR [place] Stop: 08/06/17 20:59 Last Admin: 06/09/17 10:04 Dose: 100 mg Miscellaneous (Vancomycin Iv Per Pharmacy) 1 ea PRN PRN PRN Reason: PROTOCOL Stop: 08/07/17 07:59 Miscellaneous (Probiotic Screen) 1 ea PRN PRN PRN Reason: PROTOCOL Stop: 08/07/17 10:42 Phytonadione (Mephyton) 10 mg GT DAILY [facility] Stop: 08/07/17 19:59 Last Admin: 06/09/17 10:06 Dose: 10 mg Potassium Chloride (Potassium Chloride Elixir) 20 meq GT BID [facility] Stop: 08/07/17 08:59 Last Admin: 06/09/17 11:30 Dose: 20 meq Propranolol HCl (Inderal) 20 mg GT TID [facility] Stop: 08/06/17 20:59 Last Admin: 06/09/17 10:03 Dose: 20 mg Pyridoxine HCl (Vitamin B6) 100 mg GT DAILY [place] Stop: 08/07/17 08:59 Last Admin: 06/09/17 10:05 Dose: 100 mg Rifaximin (Xifaxan) 500 mg PO BID [facility] Stop: 08/07/17 16:59 Last Admin: 06/09/17 10:06 Dose: 500 mg Sodium Phosphate (Fleet Enema) 135 ml RC Q48H PRN PRN Reason: IF DULCOLAX IS INEFFECTIVE Stop: 08/06/17 19:17 Thiamine HCl (Vitamin B1) 100 mg GT DAILY [facility] Stop: 08/07/17 08:59 Last Admin: 06/09/17 10:05 Dose: 100 mg Valproate Sodium (Depakene) 500 mg GT TID [place] PRN Reason: Protocol Stop: 08/06/17 20:59 Last Admin: 06/09/17 10:03 Dose: 500 mg CXR: CM, B/L ATx electrolytes has improved off ivf, Na now 140 F/U electrolytes, cbc continue lactulose Lab - Result Diagrams 06/10/17 04:40 06/10/17 04:40 Nutritional Asmnt/Malnutr-PDOC - Dietary Evaluation Malnutrition Findings (Please click <Entered> for more info): Nutritional Asmnt/Malnutrition Start: 06/09/17 11: 00 Text: Status: Complete Freq: Document 06/09/17 13:09 [facility] (Rec: 06/09/17 13:27 [facility] [id number]) Nutritional Asmnt/Malnutrition Patient General Information Nutritional Screening High Risk Screening Diagnosis Sepsis, UTI, right and left lower lobe infiltrate, pneumonia Pertinent Medical Hx/Surgical Hx Alcohol problem, liver disease , cirrhosis of the liver, hepatic comas, seizures, trachestomy, PEG, asthma, COPD Subjective Information Pt is a 52-year-old male from [facility] admitted with chief complaint of shortness of breath and falling oxygen saturation. Pt has tracheostomy to ventilator. Pt was unable to provide nutritional hx. Pt appears well nourished with no signs of muscle or fat depletion. Order to resume tube feeding; bag of Novosource Renal at bedside not yet started. Abdomen Ultrasound 06/09 notes some abdominal ascites. Current Diet Order/ Nutrition Support Novosource Renal at 55 ml/hr = 2640kcals, 120gm protein, 946ml free water Patient / S.O Can't verbalize diet edu Pertinent Medications Oscal with Vitamin D, Cefepime , D5w, Iron, Folate, Culturelle, MagOxide, Mephyton , KCl Elixir, Vitamin B6, Vitamin B1, Depakene, Vancomycin Pertinent Labs (06/09) Na 148H (improving), K 3L, Alkaline Phosphatase 171H, Ammonia 64H, Albumin 3.3L Nutritional Hx/Data Height 1.68 m Height (Calculated Centimeters) 167.6 Current Weight (lbs) 76.657 kg Weight (Calculated Kilograms) 76.7 Weight (Calculated Grams) 35905.1 Usual body Weight (lbs) 168 % Usual Body Weight 100 [place] Body Weight 142 % [place] Body Weight 119 Recent Weight Change No Weight Status Overweight GI Symptoms GI Symptoms Diarrhea Difficult in: Chewing Swallowing Food Allergies No Usual diet at home Nepro 1.8 (237 ml) QID 0900, 1300, 1700, 2100, sugar free ProStat 30 ml Skin Integrity/Comment: Vitor 12. Skin intact. Estimated Nutritional Goals BEE in Kcals: Using Current wt Calories/Kcals/Kg Based on current wt 76.8 kg with consideration of sepsis: Kcals Calculated 5499-3382 kcals/day (27-32 kcals/kg) to prevent wt gain with overwt status Protein: Using Current wt Protein g/kg: Based on current wt 76.8 kg with consideration of sepsis: Protein Calculated 92-115 gm/day (1.2-1.5 gm/kg) Fluid: ml Per MD/DO due to abnormal electrolytes Nutritional Problem 1. Problem Problem Excessive intake from enteral nutrition related to Etiology increased energy intake from calorically dense tube feeding formula as evidenced by Signs/Symptoms: current tube feeding meets 104 % of higher end of estimated calories needs. Malnutrition Alert Protein-Calorie Malnutrition N/A Is there a minimum of two criteria No selected? Query Text:Check all the applicable criteria. A minimum of two criteria are recommended for diagnosis of either severe or non-severe malnutrition. Malnutrition Related to Morbid Obesity Malnutrition related to morbid obesity No Intervention/Recommendation Recommendations by RD Decrease Calorie Intake Comments 1. Recommend decrease tube feeding Novosource Renal at goal rate of 50 ml/hr to provide 2400 kcals, 109 gm protein, and 860 ml free water per day. Monitor renal labs to prioritize protein needs. Expected Outcomes/Goals Expected Outcomes/Goals Provide pt with 100% of estimated nutritional needs. Physician Parameters for PEM Serum Albumin (g/dl) 3.1 - 3.4 (Mild)
[2017-06-16] MEDS: Atorvastatin Calcium 10 MG TAB GT SCH (21:12)
--- NOTE | 2017-06-16 23:26 | Progress Notes ---
DATE: 06/16/2017 PROBLEM LIST: 1. Acute on chronic respiratory failure. 2. Bilateral pneumonia, improving. 3. Effusion, improving. 4. Chronic hepatic failure with periodic hepatic encephalopathy. SYMPTOMS: The patient is awake, looking from side to side, no respiratory distress. PHYSICAL EXAMINATION: VITAL SIGNS: Temperature is 97.5, heart rate is in 70, blood pressure 107/60, saturation 100%. NECK: Veins not visualized. CHEST: Shows diminished air entry with occasional rhonchi. HEART: Regular. ABDOMEN: Soft, nontender. LABORATORY DATA: White count is 6.3, platelet is 68 and electrolytes are okay and patient's ammonia is 80, it seems like not much change in last few days. ASSESSMENT: The patient is clinically stable, slight improvement radiographically, still some haziness in the left base. PLANS AND SUGGESTIONS: We will continue current antibiotic inhalation treatment, ventilator care, etc., and see how he does in the next few days' time and go from there. JOB# [id number]
[2017-06-17] MEDS: Lactulose 10 Gm/15 mL 30mL UDC GT SCH ×4 (00:28→17:17)
[2017-06-17] MEDS: Albuterol/Ipratropium Neb 3 ML AERS HHN SCH ×6 (03:01→22:50)
[2017-06-17] MEDS: Levetiracetam 500 mg/5mL 5mL UDC GT SCH ×3 (06:01→20:55)
[2017-06-17] MEDS: Budesonide 0.5 Mg/2 mL Ud HHN SCH ×2 (07:43→18:52)
[2017-06-17] MEDS: Chlorhexidine Gluconate 0.12% 15mL Mouthwash MM SCH ×2 (08:06→20:57)
[2017-06-17] MEDS: Potassium Chloride Elixir 20 mEq /15 mL UDC GT SCH ×3 (08:18→20:55)
[2017-06-17] MEDS: Lactobacillus Rhamnosus 10 Billion CFU Capsule PO SCH (08:19)
[2017-06-17] MEDS: Calcium Carb/Vit D 500 mg/200 U Tab GT SCH (08:19)
[2017-06-17 08:20] LABS: HEMATOCRIT 28.3 % (39.0-49.0); HEMOGLOBIN 9.6 gm/dL (13.2-17.3); MEAN CELL VOLUME 96.6 fl (80-99); MEAN CORPUSCULAR HEMOGLOBIN 32.7 pg (26.0-30.0); MEAN CORPUSCULAR HGB CONC 33.8 pg (28.0-36.0); MEAN PLATELET VOLUME 10.4 fl; RED BLOOD COUNT 2.93 Mil/cmm (4.30-5.70); RED CELL DISTRIBUTION WIDTH 15.9 % (11.5-20.0)
[2017-06-17 08:34] LABS: WHITE BLOOD COUNT 4.8 Th/cmm (4.8-10.8)
[2017-06-17 08:35] LABS: PLATELET COUNT 85 Th/cmm (150-400)
[2017-06-17 08:41] LABS: ANION GAP 5.1 (7.0-16.0); BUN - UREA NITROGEN 14 mg/dL (7-25); CALCIUM SERUM 10.2 mg/dL (8.6-10.3); CARBON DIOXIDE 26.7 mEq/L (21.0-31.0); CHLORIDE 113 mEq/L (98-107); CREATININE - SERUM 0.4 mg/dL (0.7-1.3); GLUCOSE 119 mg/dL (70-105); POTASSIUM SERUM 3.8 mEq/L (3.5-5.1); SODIUM SERUM 141 mEq/L (136-145)
--- NOTE | 2017-06-17 08:59 | Diagnostic Imaging Report ---
Portable chest x-ray Time: 0 751 History: Shortness of breath Allowing for portable technique the heart size is normal. No focal pulmonary parenchymal processes. No hilar or mediastinal abnormalities. Tracheostomy tube midline. Impression: No acute abnormalities.
[2017-06-17 09:01] LABS: BAND NEUTROPHILE 3 % (0-10); EOSINOPHIL 4 % (0-5); NEUTROPHILS 54 % (40-80); TOTAL CELLS COUNTED 100
[2017-06-17 09:02] LABS: ANISOCYTOSIS 1+; PLATELET ESTIMATE DECREASED PLATELETS (NORMAL); PLATELET MORPHOLOGY PLATELET CLUMPS SEEN (NORMAL)
--- NOTE | 2017-06-17 09:33 | General Progress Note ---
Subjective - Review of Systems Events since last encounter: patient awake no distress Subjective: on vent, afebrile nad Objective - Results Result Diagrams: 06/17/17 07:00 06/17/17 07:00 Recent Labs: Laboratory Last Values WBC 4.8 Th/cmm (4.8-10.8) D 06/17/17 07:00 RBC 2.93 Mil/cmm (4.30-5.70) L 06/17/17 07:00 Hgb 9.6 gm/dL (13.2-17.3) L 06/17/17 07:00 Hct 28.3 % (39.0-49.0) L 06/17/17 07:00 MCV 96.6 fl (80-99) 06/17/17 07:00 MCH 32.7 pg (26.0-30.0) H 06/17/17 07:00 MCHC Differential 33.8 pg (28.0-36.0) 06/17/17 07:00 RDW 15.9 % (11.5-20.0) 06/17/17 07:00 Plt Count 85 Th/cmm (150-400) L D 06/17/17 07:00 MPV 10.4 fl 06/17/17 07:00 Neutrophils % 50.2 % (40.0-80.0) 06/15/17 04:30 Band Neutrophils % 3 % (0-10) 06/17/17 07:00 Lymphocytes % 22.2 % (20.0-50.0) 06/15/17 04:30 Monocytes % 24.6 % (2.0-10.0) H 06/15/17 04:30 Eosinophils % 2.9 % (0.0-5.0) 06/15/17 04:30 Basophils % 0.3 % (0.0-2.0) 06/10/17 04:40 Neutrophils (Manual) 54 % (40-80) 06/17/17 07:00 Lymphocytes 19 % (20-50) L 06/17/17 07:00 Monocytes 20 % (2-10) H 06/17/17 07:00 Eosinophils 4 % (0-5) 06/17/17 07:00 Basophils 0 % (0-3) 06/14/17 05:00 Metamyelocytes 2 % (0-0) H 06/13/17 07:20 Myelocytes 1 % 06/13/17 07:20 Nucleated RBCs 1.0 % (0-0) H 06/08/17 04:59 Platelet Estimate DECREASED PLATELETS (NORMAL) 06/17/17 07:00 Platelet Morphology PLATELET CLUMPS SEEN (NORMAL) 06/17/17 07:00 Anisocytosis 1+ 06/17/17 07:00 RBC Morph Micro Appear ABNORMAL (NORMAL) 06/17/17 07:00 Specimen Source ARTERIAL 06/10/17 08:43 Sample Site Left Radial 06/10/17 08:43 pH 7.46 (7.35-7.45) H 06/10/17 08:43 pCO2 36.0 mmHg (35.0-45.0) 06/10/17 08:43 pO2 92.0 mmHg (80.0-100.0) 06/10/17 08:43 HCO3 26.4 mEq/L (20.0-26.0) H 06/10/17 08:43 Base Excess 1.9 mEq/L (-3.0-3.0) 06/10/17 08:43 O2 Saturation 98.0 % (92.0-100.0) 06/10/17 08:43 Jose L Test POSITIVE 06/10/17 08:43 Vent Rate 12 06/10/17 08:43 Inspired O2 40 06/10/17 08:43 Tidal Volume 500 06/10/17 08:43 PEEP 5 06/10/17 08:43 Pressure (ins/psv/peep) N/A 06/10/17 08:43 Critical Value SAURABH 06/10/17 08:43 Sodium 141 mEq/L (136-145) 06/17/17 07:00 Potassium 3.8 mEq/L (3.5-5.1) 06/17/17 07:00 Chloride 113 mEq/L (98-107) H 06/17/17 07:00 Carbon Dioxide 26.7 mEq/L (21.0-31.0) 06/17/17 07:00 Anion Gap 5.1 (7.0-16.0) L 06/17/17 07:00 BUN 14 mg/dL (7-25) 06/17/17 07:00 Creatinine 0.4 mg/dL (0.7-1.3) L 06/17/17 07:00 Est GFR ( Amer) > 60.0 ml/min (>90) 06/17/17 07:00 Est GFR (Non-Af Amer) > 60.0 ml/min 06/17/17 07:00 BUN/Creatinine Ratio 35.0 06/17/17 07:00 Glucose 119 mg/dL (70-105) H 06/17/17 07:00 Plasma/Ser Osmolality 313 mOsmol/kg (275-295) H 06/09/17 05:07 Whole Bld Lactic Acid 1.51 mmol/L (0.60-1.99) 06/08/17 04:59 Calcium 10.2 mg/dL (8.6-10.3) 06/17/17 07:00 Phosphorus 2.7 mg/dL (2.5-5.0) 06/08/17 04:59 Magnesium 1.6 mg/dL (1.9-2.7) L 06/14/17 05:00 Iron 71 ug/dL (38-169) 06/08/17 04:59 TIBC 173 ug/dL (250-450) L 06/08/17 04:59 Iron Saturation 41 % (15-55) 06/08/17 04:59 Unsaturated IBC 102 ug/dL (111-343) L 06/08/17 04:59 Ferritin 303 ng/mL (30-400) 06/08/17 04:59 Total Bilirubin 1.0 mg/dL (0.3-1.0) 06/16/17 04:40 Direct Bilirubin 0.29 mg/dL (0.0-0.2) H 06/16/17 04:40 AST 28 U/L (13-39) 06/16/17 04:40 ALT 13 U/L (7-52) 06/16/17 04:40 Alkaline Phosphatase 184 U/L (34-104) H 06/16/17 04:40 Ammonia 84 umol/L (16-53) H 06/17/17 07:00 Troponin I 0.01 ng/mL (0.01-0.05) 06/07/17 13:28 B-Natriuretic Peptide 91.8 pg/mL (5.0-100.0) 06/07/17 13:28 Total Protein 7.8 gm/dL (6.0-8.3) 06/16/17 04:40 Albumin 2.6 gm/dL (4.2-5.5) L 06/16/17 04:40 Globulin 5.2 gm/dL 06/16/17 04:40 Albumin/Globulin Ratio 0.5 (1.0-1.8) L 06/16/17 04:40 Vitamin B12 >1999 pg/mL (211-946) H 06/08/17 04:59 Folic Acid >20.0 ng/mL (>3.0) 06/08/17 04:59 Urine Source RANDOM 06/07/17 13:25 Urine Color NISA 06/07/17 13:25 Urine Clarity CLOUDY (CLEAR) 06/07/17 13:25 Urine pH 5.5 (4.6 - 8.0) 06/07/17 13:25 Ur Specific Cooter 1.020 (1.005-1.030) 06/07/17 13:25 Urine Protein >=300 mg/dL (NEGATIVE) 06/07/17 13:25 Urine Glucose (UA) NEGATIVE mg/dL (NEGATIVE) 06/07/17 13:25 Urine Ketones 15 mg/dL (NEGATIVE) H 06/07/17 13:25 Urine Blood LARGE (NEGATIVE) H 06/07/17 13:25 Urine Nitrate POSITIVE (NEGATIVE) H 06/07/17 13:25 Urine Bilirubin MODERATE (NEGATIVE) H 06/07/17 13:25 Urine Urobilinogen 2.0 E.U./dL (0.2 - 1.0) 06/07/17 13:25 Ur Leukocyte Esterase MODERATE (NEGATIVE) H 06/07/17 13:25 Urine RBC >100 /hpf (0-5) H 06/07/17 13:25 Urine WBC 2-5 /hpf (0-5) H 06/07/17 13:25 Ur Epithelial Cells OCCASIONAL /lpf (FEW) 06/07/17 13:25 Urine Bacteria FEW /hpf (NONE SEEN) 06/07/17 13:25 Urine Osmolality 776 mOsmol/kg 06/09/17 05:53 Ur Random Sodium 119 mmol/L 06/08/17 18:16 Stool Occult Blood NEGATIVE (NEGATIVE) 06/12/17 17:30 Vancomycin Trough 18.6 ug/mL (10-20) 06/16/17 09:00 Blood Type O POSITIVE 06/09/17 09:30 Antibody Screen NEGATIVE 06/09/17 09:30 - Physical Exam Vitals and I&O: Vital Signs Temp 97.6 F 06/17/17 04:00 Pulse 75 06/17/17 09:29 Resp 16 06/17/17 07:00 BP 102/59 06/17/17 08:20 Pulse Ox 100 06/17/17 09:29 Intake & Output 06/16/17 06/17/17 06/17/17 18:59 06:59 18:59 Intake Total 1650 1350 Output Total 1750 1400 Balance -100 -50 Weight (lbs) 82.185 kg 81.873 kg Intake: Intake, IV Amount 450 450 Colistimethate 75 mg In 100 100 Sodium Chloride 0.9% 100 ml @ 100 mls/hr IV Q12HR [facility] Rx#:[id number] Meropenem 1 gm In Sodium 100 100 Chloride 0.9% 100 ml @ 100 mls/hr IV Q12H [facility] Rx #:[id number] Vancomycin HCl 1.25 gm In 250 250 Sodium Chloride 0.9% 250 ml @ 165 mls/hr IV Q12H [facility] Rx#:[id number] Tube Feeding 600 600 Other 600 300 Output: Urine 850 500 Stool 900 900 Other: Stool Characteristics Liquid Liquid Active Medications: Current Medications Albuterol/Ipratropium (Duoneb Neb) 3 ml HHN Q4HR [place] Stop: 08/06/17 19:59 Last Admin: 06/17/17 07:43 Dose: 3 ml Albuterol/Ipratropium (Duoneb Neb) 3 ml HHN Q4HRT [facility] Stop: 08/07/17 18:59 Last Admin: 06/15/17 18:54 Dose: 3 ml Amlodipine Besylate (Norvasc) 5 mg GT Q12HR [place] Stop: 08/06/17 20:59 Last Admin: 06/17/17 08:19 Dose: Not Given Artificial Tears (Artificial Tears Ophth Soln) 2 drop EACH EYE Q6H PRN PRN Reason: eye dryness Stop: 08/06/17 20:54 Last Admin: 06/16/17 09:32 Dose: 2 drop Atorvastatin Calcium (Lipitor) 10 mg GT HS [place] PRN Reason: Protocol Stop: 08/06/17 20:59 Last Admin: 06/16/17 21:12 Dose: 10 mg Bisacodyl (Dulcolax 10 Mg Supp) 10 mg RC DAILY PRN PRN Reason: Constipation Stop: 08/06/17 19:17 Budesonide (Pulmicort) 0.5 mg HHN BIDRT [place] Stop: 08/07/17 18:59 Last Admin: 06/17/17 07:43 Dose: 0.5 mg Calcium/Vitamin D (Oscal W/Vitamin D) 1 tab GT DAILY [place] Stop: 08/07/17 08:59 Last Admin: 06/17/17 08:19 Dose: 1 tab Chlorhexidine Gluconate (Peridex) 15 ml MM 0800,2000 [place] Stop: 08/08/17 19:59 Last Admin: 06/17/17 08:06 Dose: 15 ml Folic Acid (Folate) 2.5 mg GT DAILY [place] Stop: 08/07/17 08:59 Last Admin: 06/17/17 08:18 Dose: 2.5 mg Hydralazine HCl (Apresoline) 50 mg GT Q8HR [place] Stop: 08/06/17 20:59 Last Admin: 06/17/17 05:30 Dose: Not Given Colistimethate Sodium 75 mg/ (Sodium Chloride) 100 mls @ 100 mls/hr IV Q12HR [place] Stop: 08/10/17 20:59 Last Infusion: 06/16/17 22:45 Dose: Infused Meropenem 1 gm/ Sodium (Chloride) 100 mls @ 100 mls/hr IV Q12H [place] Stop: 08/13/17 08:59 Last Admin: 06/17/17 08:06 Dose: 100 mls/hr Vancomycin HCl 1.25 gm/ Sodium (Chloride) 250 mls @ 165 mls/hr IV Q12H [place] Stop: 08/15/17 09:59 Last Infusion: 06/16/17 23:50 Dose: Infused Lactobacillus Rhamnosus (Culturelle) 1 each PO DAILY [place] Stop: 08/08/17 08:59 Last Admin: 06/17/17 08:19 Dose: 1 each Lactulose (Cephulac) 30 gm GT Q6HR [place] Stop: 08/08/17 17:59 Last Admin: 06/17/17 06:05 Dose: 30 gm Levetiracetam (Keppra) 1,000 mg GT Q8HR [place] Stop: 08/06/17 20:59 Last Admin: 06/17/17 06:01 Dose: 1,000 mg Lorazepam (Ativan) 1 mg IVP Q6H PRN; Protocol PRN Reason: Agitation Stop: 08/13/17 23:17 Last Admin: 06/17/17 07:50 Dose: 1 mg Magnesium Hydroxide (Milk Of Magnesia) 30 ml GT HS PRN PRN Reason: Constipation Stop: 08/06/17 19:17 Magnesium Oxide (Mag-Oxide) 400 mg GT DAILY [facility] Stop: 08/07/17 08:59 Last Admin: 06/17/17 08:20 Dose: 400 mg Metoprolol Tartrate (Lopressor) 100 mg GT Q12HR [place] Stop: 08/06/17 20:59 Last Admin: 06/17/17 08:20 Dose: Not Given Miscellaneous (Vancomycin Iv Per Pharmacy) 1 ea PRN PRN PRN Reason: PROTOCOL Stop: 08/07/17 07:59 Miscellaneous (Probiotic Screen) 1 ea PRN PRN PRN Reason: PROTOCOL Stop: 08/07/17 10:42 Phytonadione (Mephyton) 10 mg GT DAILY [facility] Stop: 08/07/17 19:59 Last Admin: 06/17/17 08:19 Dose: 10 mg Potassium Chloride (Potassium Chloride Elixir) 20 meq GT TID [facility] Stop: 08/12/17 13:59 Last Admin: 06/17/17 08:18 Dose: 20 meq Propranolol HCl (Inderal) 20 mg GT TID [place] Stop: 08/06/17 20:59 Last Admin: 06/17/17 08:20 Dose: Not Given Pyridoxine HCl (Vitamin B6) 100 mg GT DAILY [facility] Stop: 08/07/17 08:59 Last Admin: 06/17/17 08:19 Dose: 100 mg Sodium Phosphate (Fleet Enema) 135 ml RC Q48H PRN PRN Reason: IF DULCOLAX IS INEFFECTIVE Stop: 08/06/17 19:17 Thiamine HCl (Vitamin B1) 100 mg GT DAILY [facility] Stop: 08/07/17 08:59 Last Admin: 06/17/17 08:19 Dose: 100 mg Valproate Sodium (Depakene) 500 mg GT TID [place] PRN Reason: Protocol Stop: 08/06/17 20:59 Last Admin: 06/17/17 08:19 Dose: 500 mg General: Alert, No acute distress HEENT: Atraumatic, PERRLA, EOMI, Mucous membr. moist/pink Neck: Supple, +2 carotid pulse wo bruit Cardiovascular: Regular rate, Normal S1, Normal S2 Lungs: Clear to auscultation, Other Abdomen: Bowel sounds, Soft Extremities: no Edema Neurological: Sensation intact Skin: no Rash Psych/Mental Status: Mood NL - Procedures Procedures: Procedures Procedure Code Date RESPIRATORY VENTILATION, GREATER THAN 96 CONSECUTIVE HOURS [id number] 06/07/17 Assessment/Plan - Problem List Patient Problems: All Active Problems ELEVATED NA+, AND BUN LEVELS (Acute) - Assessment Assessment: s/p respiratory failure pnumonia s/p trch and peg trmors h/o alcoholism h/o sizures - Plan Plan: iv antibiotics vent support continue current plan of care am labs Nutritional Asmnt/Malnutr-PDOC - Dietary Evaluation Malnutrition Findings (Please click <Entered> for more info): Nutritional Asmnt/Malnutrition Start: 06/09/17 11: 00 Text: Status: Complete Freq: Document 06/09/17 13:09 [facility] (Rec: 06/09/17 13:27 [facility] [id number]) Nutritional Asmnt/Malnutrition Patient General Information Nutritional Screening High Risk Screening Diagnosis Sepsis, UTI, right and left lower lobe infiltrate, pneumonia Pertinent Medical Hx/Surgical Hx Alcohol problem, liver disease , cirrhosis of the liver, hepatic comas, seizures, trachestomy, PEG, asthma, COPD Subjective Information Pt is a 52-year-old male from [facility] admitted with chief complaint of shortness of breath and falling oxygen saturation. Pt has tracheostomy to ventilator. Pt was unable to provide nutritional hx. Pt appears well nourished with no signs of muscle or fat depletion. Order to resume tube feeding; bag of Novosource Renal at bedside not yet started. Abdomen Ultrasound 06/09 notes some abdominal ascites. Current Diet Order/ Nutrition Support Novosource Renal at 55 ml/hr = 2640kcals, 120gm protein, 946ml free water Patient / S.O Can't verbalize diet edu Pertinent Medications Oscal with Vitamin D, Cefepime , D5w, Iron, Folate, Culturelle, MagOxide, Mephyton , KCl Elixir, Vitamin B6, Vitamin B1, Depakene, Vancomycin Pertinent Labs (06/09) Na 148H (improving), K 3L, Alkaline Phosphatase 171H, Ammonia 64H, Albumin 3.3L Nutritional Hx/Data Height 1.68 m Height (Calculated Centimeters) 167.6 Current Weight (lbs) 76.657 kg Weight (Calculated Kilograms) 76.7 Weight (Calculated Grams) 98811.1 Usual body Weight (lbs) 168 % Usual Body Weight 100 [place] Body Weight 142 % [place] Body Weight 119 Recent Weight Change No Weight Status Overweight GI Symptoms GI Symptoms Diarrhea Difficult in: Chewing Swallowing Food Allergies No Usual diet at home Nepro 1.8 (237 ml) QID 0900, 1300, 1700, 2100, sugar free ProStat 30 ml Skin Integrity/Comment: Vitor Thomas. Skin intact. Estimated Nutritional Goals BEE in Kcals: Using Current wt Calories/Kcals/Kg Based on current wt 76.8 kg with consideration of sepsis: Kcals Calculated 4554-7369 kcals/day (27-32 kcals/kg) to prevent wt gain with overwt status Protein: Using Current wt Protein g/kg: Based on current wt 76.8 kg with consideration of sepsis: Protein Calculated 92-115 gm/day (1.2-1.5 gm/kg) Fluid: ml Per MD/DO due to abnormal electrolytes Nutritional Problem 1. Problem Problem Excessive intake from enteral nutrition related to Etiology increased energy intake from calorically dense tube feeding formula as evidenced by Signs/Symptoms: current tube feeding meets 104 % of higher end of estimated calories needs. Malnutrition Alert Protein-Calorie Malnutrition N/A Is there a minimum of two criteria No selected? Query Text:Check all the applicable criteria. A minimum of two criteria are recommended for diagnosis of either severe or non-severe malnutrition. Malnutrition Related to Morbid Obesity Malnutrition related to morbid obesity No Intervention/Recommendation Recommendations by RD Decrease Calorie Intake Comments 1. Recommend decrease tube feeding Novosource Renal at goal rate of 50 ml/hr to provide 2400 kcals, 109 gm protein, and 860 ml free water per day. Monitor renal labs to prioritize protein needs. Expected Outcomes/Goals Expected Outcomes/Goals Provide pt with 100% of estimated nutritional needs. Physician Parameters for PEM Serum Albumin (g/dl) 3.1 - 3.4 (Mild)
--- NOTE | 2017-06-17 13:36 | General Progress Note ---
Subjective - Review of Systems Service Date: 06/17/17 Subjective: sleeping, arousable, on vent Objective - Results Result Diagrams: 06/17/17 07:00 06/17/17 07:00 Recent Labs: Laboratory Last Values WBC 4.8 Th/cmm (4.8-10.8) D 06/17/17 07:00 RBC 2.93 Mil/cmm (4.30-5.70) L 06/17/17 07:00 Hgb 9.6 gm/dL (13.2-17.3) L 06/17/17 07:00 Hct 28.3 % (39.0-49.0) L 06/17/17 07:00 MCV 96.6 fl (80-99) 06/17/17 07:00 MCH 32.7 pg (26.0-30.0) H 06/17/17 07:00 MCHC Differential 33.8 pg (28.0-36.0) 06/17/17 07:00 RDW 15.9 % (11.5-20.0) 06/17/17 07:00 Plt Count 85 Th/cmm (150-400) L D 06/17/17 07:00 MPV 10.4 fl 06/17/17 07:00 Neutrophils % 50.2 % (40.0-80.0) 06/15/17 04:30 Band Neutrophils % 3 % (0-10) 06/17/17 07:00 Lymphocytes % 22.2 % (20.0-50.0) 06/15/17 04:30 Monocytes % 24.6 % (2.0-10.0) H 06/15/17 04:30 Eosinophils % 2.9 % (0.0-5.0) 06/15/17 04:30 Basophils % 0.3 % (0.0-2.0) 06/10/17 04:40 Neutrophils (Manual) 54 % (40-80) 06/17/17 07:00 Lymphocytes 19 % (20-50) L 06/17/17 07:00 Monocytes 20 % (2-10) H 06/17/17 07:00 Eosinophils 4 % (0-5) 06/17/17 07:00 Basophils 0 % (0-3) 06/14/17 05:00 Metamyelocytes 2 % (0-0) H 06/13/17 07:20 Myelocytes 1 % 06/13/17 07:20 Nucleated RBCs 1.0 % (0-0) H 06/08/17 04:59 Platelet Estimate DECREASED PLATELETS (NORMAL) 06/17/17 07:00 Platelet Morphology PLATELET CLUMPS SEEN (NORMAL) 06/17/17 07:00 Anisocytosis 1+ 06/17/17 07:00 RBC Morph Micro Appear ABNORMAL (NORMAL) 06/17/17 07:00 Specimen Source ARTERIAL 06/10/17 08:43 Sample Site Left Radial 06/10/17 08:43 pH 7.46 (7.35-7.45) H 06/10/17 08:43 pCO2 36.0 mmHg (35.0-45.0) 06/10/17 08:43 pO2 92.0 mmHg (80.0-100.0) 06/10/17 08:43 HCO3 26.4 mEq/L (20.0-26.0) H 06/10/17 08:43 Base Excess 1.9 mEq/L (-3.0-3.0) 06/10/17 08:43 O2 Saturation 98.0 % (92.0-100.0) 06/10/17 08:43 Jose L Test POSITIVE 06/10/17 08:43 Vent Rate 12 06/10/17 08:43 Inspired O2 40 06/10/17 08:43 Tidal Volume 500 06/10/17 08:43 PEEP 5 06/10/17 08:43 Pressure (ins/psv/peep) N/A 06/10/17 08:43 Critical Value SAURABH 06/10/17 08:43 Sodium 141 mEq/L (136-145) 06/17/17 07:00 Potassium 3.8 mEq/L (3.5-5.1) 06/17/17 07:00 Chloride 113 mEq/L (98-107) H 06/17/17 07:00 Carbon Dioxide 26.7 mEq/L (21.0-31.0) 06/17/17 07:00 Anion Gap 5.1 (7.0-16.0) L 06/17/17 07:00 BUN 14 mg/dL (7-25) 06/17/17 07:00 Creatinine 0.4 mg/dL (0.7-1.3) L 06/17/17 07:00 Est GFR ( Amer) > 60.0 ml/min (>90) 06/17/17 07:00 Est GFR (Non-Af Amer) > 60.0 ml/min 06/17/17 07:00 BUN/Creatinine Ratio 35.0 06/17/17 07:00 Glucose 119 mg/dL (70-105) H 06/17/17 07:00 Plasma/Ser Osmolality 313 mOsmol/kg (275-295) H 06/09/17 05:07 Whole Bld Lactic Acid 1.51 mmol/L (0.60-1.99) 06/08/17 04:59 Calcium 10.2 mg/dL (8.6-10.3) 06/17/17 07:00 Phosphorus 2.7 mg/dL (2.5-5.0) 06/08/17 04:59 Magnesium 1.6 mg/dL (1.9-2.7) L 06/14/17 05:00 Iron 71 ug/dL (38-169) 06/08/17 04:59 TIBC 173 ug/dL (250-450) L 06/08/17 04:59 Iron Saturation 41 % (15-55) 06/08/17 04:59 Unsaturated IBC 102 ug/dL (111-343) L 06/08/17 04:59 Ferritin 303 ng/mL (30-400) 06/08/17 04:59 Total Bilirubin 1.0 mg/dL (0.3-1.0) 06/16/17 04:40 Direct Bilirubin 0.29 mg/dL (0.0-0.2) H 06/16/17 04:40 AST 28 U/L (13-39) 06/16/17 04:40 ALT 13 U/L (7-52) 06/16/17 04:40 Alkaline Phosphatase 184 U/L (34-104) H 06/16/17 04:40 Ammonia 84 umol/L (16-53) H 06/17/17 07:00 Troponin I 0.01 ng/mL (0.01-0.05) 06/07/17 13:28 B-Natriuretic Peptide 91.8 pg/mL (5.0-100.0) 06/07/17 13:28 Total Protein 7.8 gm/dL (6.0-8.3) 06/16/17 04:40 Albumin 2.6 gm/dL (4.2-5.5) L 06/16/17 04:40 Globulin 5.2 gm/dL 06/16/17 04:40 Albumin/Globulin Ratio 0.5 (1.0-1.8) L 06/16/17 04:40 Vitamin B12 >1999 pg/mL (211-946) H 06/08/17 04:59 Folic Acid >20.0 ng/mL (>3.0) 06/08/17 04:59 Urine Source RANDOM 06/07/17 13:25 Urine Color NISA 06/07/17 13:25 Urine Clarity CLOUDY (CLEAR) 06/07/17 13:25 Urine pH 5.5 (4.6 - 8.0) 06/07/17 13:25 Ur Specific [place] 1.020 (1.005-1.030) 06/07/17 13:25 Urine Protein >=300 mg/dL (NEGATIVE) 06/07/17 13:25 Urine Glucose (UA) NEGATIVE mg/dL (NEGATIVE) 06/07/17 13:25 Urine Ketones 15 mg/dL (NEGATIVE) H 06/07/17 13:25 Urine Blood LARGE (NEGATIVE) H 06/07/17 13:25 Urine Nitrate POSITIVE (NEGATIVE) H 06/07/17 13:25 Urine Bilirubin MODERATE (NEGATIVE) H 06/07/17 13:25 Urine Urobilinogen 2.0 E.U./dL (0.2 - 1.0) 06/07/17 13:25 Ur Leukocyte Esterase MODERATE (NEGATIVE) H 06/07/17 13:25 Urine RBC >100 /hpf (0-5) H 06/07/17 13:25 Urine WBC 2-5 /hpf (0-5) H 06/07/17 13:25 Ur Epithelial Cells OCCASIONAL /lpf (FEW) 06/07/17 13:25 Urine Bacteria FEW /hpf (NONE SEEN) 06/07/17 13:25 Urine Osmolality 776 mOsmol/kg 06/09/17 05:53 Ur Random Sodium 119 mmol/L 06/08/17 18:16 Stool Occult Blood NEGATIVE (NEGATIVE) 06/12/17 17:30 Vancomycin Trough 18.6 ug/mL (10-20) 06/16/17 09:00 Blood Type O POSITIVE 06/09/17 09:30 Antibody Screen NEGATIVE 06/09/17 09:30 - Physical Exam Vitals and I&O: Vital Signs Temp 97.3 F 06/17/17 12:00 Pulse 75 06/17/17 12:29 Resp 18 06/17/17 12:00 BP 93/65 06/17/17 12:29 Pulse Ox 100 06/17/17 12:00 Intake & Output 06/16/17 06/17/17 06/17/17 18:59 06:59 18:59 Intake Total 1650 1350 Output Total 1750 1400 Balance -100 -50 Weight (lbs) 82.185 kg 81.873 kg Intake: Intake, IV Amount 450 450 Colistimethate 75 mg In 100 100 Sodium Chloride 0.9% 100 ml @ 100 mls/hr IV Q12HR [facility] Rx#:[id number] Meropenem 1 gm In Sodium 100 100 Chloride 0.9% 100 ml @ 100 mls/hr IV Q12H [place] Rx #:[id number] Vancomycin HCl 1.25 gm In 250 250 Sodium Chloride 0.9% 250 ml @ 165 mls/hr IV Q12H [facility] Rx#:[id number] Tube Feeding 600 600 Other 600 300 Output: Urine 850 500 Stool 900 900 Other: Stool Characteristics Liquid Liquid Liquid Active Medications: Current Medications Albuterol/Ipratropium (Duoneb Neb) 3 ml HHN Q4HR [place] Stop: 08/06/17 19:59 Last Admin: 06/17/17 11:36 Dose: 3 ml Albuterol/Ipratropium (Duoneb Neb) 3 ml HHN Q4HRT [facility] Stop: 08/07/17 18:59 Last Admin: 06/15/17 18:54 Dose: 3 ml Amlodipine Besylate (Norvasc) 5 mg GT Q12HR [place] Stop: 08/06/17 20:59 Last Admin: 06/17/17 08:19 Dose: Not Given Artificial Tears (Artificial Tears Ophth Soln) 2 drop EACH EYE Q6H PRN PRN Reason: eye dryness Stop: 08/06/17 20:54 Last Admin: 06/16/17 09:32 Dose: 2 drop Atorvastatin Calcium (Lipitor) 10 mg GT HS [place] PRN Reason: Protocol Stop: 08/06/17 20:59 Last Admin: 06/16/17 21:12 Dose: 10 mg Bisacodyl (Dulcolax 10 Mg Supp) 10 mg RC DAILY PRN PRN Reason: Constipation Stop: 08/06/17 19:17 Budesonide (Pulmicort) 0.5 mg HHN BIDRT [place] Stop: 08/07/17 18:59 Last Admin: 06/17/17 07:43 Dose: 0.5 mg Calcium/Vitamin D (Oscal W/Vitamin D) 1 tab GT DAILY [place] Stop: 08/07/17 08:59 Last Admin: 06/17/17 08:19 Dose: 1 tab Chlorhexidine Gluconate (Peridex) 15 ml MM 0800,2000 [place] Stop: 08/08/17 19:59 Last Admin: 06/17/17 08:06 Dose: 15 ml Folic Acid (Folate) 2.5 mg GT DAILY [place] Stop: 08/07/17 08:59 Last Admin: 06/17/17 08:18 Dose: 2.5 mg Hydralazine HCl (Apresoline) 50 mg GT Q8HR [place] Stop: 08/06/17 20:59 Last Admin: 06/17/17 12:29 Dose: Not Given Colistimethate Sodium 75 mg/ (Sodium Chloride) 100 mls @ 100 mls/hr IV Q12HR [place] Stop: 08/10/17 20:59 Last Admin: 06/17/17 09:20 Dose: 100 mls/hr Meropenem 1 gm/ Sodium (Chloride) 100 mls @ 100 mls/hr IV Q12H [place] Stop: 08/13/17 08:59 Last Admin: 06/17/17 08:06 Dose: 100 mls/hr Vancomycin HCl 1.25 gm/ Sodium (Chloride) 250 mls @ 165 mls/hr IV Q12H [place] Stop: 08/15/17 09:59 Last Admin: 06/17/17 10:25 Dose: 165 mls/hr Lactobacillus Rhamnosus (Culturelle) 1 each PO DAILY [place] Stop: 08/08/17 08:59 Last Admin: 06/17/17 08:19 Dose: 1 each Lactulose (Cephulac) 30 gm GT Q6HR [place] Stop: 08/08/17 17:59 Last Admin: 06/17/17 11:57 Dose: 30 gm Levetiracetam (Keppra) 1,000 mg GT Q8HR [facility] Stop: 08/06/17 20:59 Last Admin: 06/17/17 12:25 Dose: 1,000 mg Lorazepam (Ativan) 1 mg IVP Q6H PRN; Protocol PRN Reason: Agitation Stop: 08/13/17 23:17 Last Admin: 06/17/17 07:50 Dose: 1 mg Magnesium Hydroxide (Milk Of Magnesia) 30 ml GT HS PRN PRN Reason: Constipation Stop: 08/06/17 19:17 Magnesium Oxide (Mag-Oxide) 400 mg GT DAILY [place] Stop: 08/07/17 08:59 Last Admin: 06/17/17 08:20 Dose: 400 mg Metoprolol Tartrate (Lopressor) 100 mg GT Q12HR [place] Stop: 08/06/17 20:59 Last Admin: 06/17/17 08:20 Dose: Not Given Miscellaneous (Vancomycin Iv Per Pharmacy) 1 ea PRN PRN PRN Reason: PROTOCOL Stop: 08/07/17 07:59 Miscellaneous (Probiotic Screen) 1 ea PRN PRN PRN Reason: PROTOCOL Stop: 08/07/17 10:42 Phytonadione (Mephyton) 10 mg GT DAILY [facility] Stop: 08/07/17 19:59 Last Admin: 06/17/17 08:19 Dose: 10 mg Potassium Chloride (Potassium Chloride Elixir) 20 meq GT TID [facility] Stop: 08/12/17 13:59 Last Admin: 06/17/17 08:18 Dose: 20 meq Propranolol HCl (Inderal) 20 mg GT TID [place] Stop: 08/06/17 20:59 Last Admin: 06/17/17 08:20 Dose: Not Given Pyridoxine HCl (Vitamin B6) 100 mg GT DAILY [facility] Stop: 08/07/17 08:59 Last Admin: 06/17/17 08:19 Dose: 100 mg Sodium Phosphate (Fleet Enema) 135 ml RC Q48H PRN PRN Reason: IF DULCOLAX IS INEFFECTIVE Stop: 08/06/17 19:17 Thiamine HCl (Vitamin B1) 100 mg GT DAILY [facility] Stop: 08/07/17 08:59 Last Admin: 06/17/17 08:19 Dose: 100 mg Valproate Sodium (Depakene) 500 mg GT TID [place] PRN Reason: Protocol Stop: 08/06/17 20:59 Last Admin: 06/17/17 08:19 Dose: 500 mg General: Alert, No acute distress HEENT: Atraumatic, PERRLA, EOMI, Mucous membr. moist/pink Neck: Supple, +2 carotid pulse wo bruit Cardiovascular: Regular rate, Normal S1, Normal S2 Lungs: Clear to auscultation, Other Abdomen: Bowel sounds, Soft Extremities: no Edema Neurological: Sensation intact Skin: no Rash Psych/Mental Status: Mood NL - Procedures Procedures: Procedures Procedure Code Date RESPIRATORY VENTILATION, GREATER THAN 96 CONSECUTIVE HOURS [id number] 06/07/17 Assessment/Plan - Problem List Patient Problems: All Active Problems ELEVATED NA+, AND BUN LEVELS (Acute) - Assessment Assessment: Hypernatremia RFVD Sepsis etio? CLD Thrombocytopenia Anemia of CD Hypokalemia - Plan Plan: Lab - Result Diagrams 06/09/17 09:30 06/09/17 05:07 Current Medications Albuterol/Ipratropium (Duoneb Neb) 3 ml HHN Q4HR [place] Stop: 08/06/17 19:59 Last Admin: 06/09/17 11:08 Dose: 3 ml Albuterol/Ipratropium (Duoneb Neb) 3 ml HHN Q4HRT [place] Stop: 08/07/17 18:59 Amlodipine Besylate (Norvasc) 5 mg GT Q12HR [place] Stop: 08/06/17 20:59 Last Admin: 06/09/17 10:05 Dose: 5 mg Artificial Tears (Artificial Tears Ophth Soln) 2 drop EACH EYE Q6H PRN PRN Reason: eye dryness Stop: 08/06/17 20:54 Atorvastatin Calcium (Lipitor) 10 mg GT HS [place] PRN Reason: Protocol Stop: 08/06/17 20:59 Last Admin: 06/08/17 21:32 Dose: 10 mg Bisacodyl (Dulcolax 10 Mg Supp) 10 mg RC DAILY PRN PRN Reason: Constipation Stop: 08/06/17 19:17 Budesonide (Pulmicort) 0.5 mg HHN BIDRT [place] Stop: 08/07/17 18:59 Last Admin: 06/08/17 19:10 Dose: 0.5 mg Calcium/Vitamin D (Oscal W/Vitamin D) 1 tab GT DAILY [place] Stop: 08/07/17 08:59 Last Admin: 06/09/17 10:05 Dose: 1 tab Chlorhexidine Gluconate (Peridex) 15 ml MM Q12HR [place] Stop: 08/06/17 20:59 Last Admin: 06/09/17 09:00 Dose: 15 ml Clonazepam (Klonopin) 2 mg GT DAILY [place] Stop: 08/07/17 08:59 Last Admin: 06/09/17 10:05 Dose: 2 mg Docusate Sodium (Colace) 100 mg GT BID [place] Stop: 08/06/17 20:59 Last Admin: 06/09/17 09:00 Dose: Not Given Ferrous Sulfate (Iron) 300 mg GT BID [place] Stop: 08/06/17 20:59 Last Admin: 06/09/17 10:03 Dose: 300 mg Folic Acid (Folate) 2.5 mg GT DAILY [place] Stop: 08/07/17 08:59 Last Admin: 06/09/17 10:05 Dose: 2.5 mg Hydralazine HCl (Apresoline) 50 mg GT Q8HR [place] Stop: 08/06/17 20:59 Last Admin: 06/09/17 12:56 Dose: 50 mg Cefepime HCl 1 gm/ Dextrose 50 mls @ 100 mls/hr IV Q8H [place] Stop: 08/07/17 00:59 Last Infusion: 06/09/17 09:30 Dose: Infused Vancomycin HCl 1.25 gm/ Sodium (Chloride) 250 mls @ 165 mls/hr IV Q12H [place] Stop: 08/07/17 09:59 Last Infusion: 06/09/17 11:31 Dose: Infused Dextrose (D5w) 1,000 mls @ 150 mls/hr IV .Q6H40M [place] Stop: 08/07/17 09:37 Last Admin: 06/09/17 07:33 Dose: 150 mls/hr Lactobacillus Rhamnosus (Culturelle) 1 each PO DAILY [place] Stop: 08/08/17 08:59 Last Admin: 06/09/17 10:04 Dose: 1 each Lactulose (Cephulac) 30 gm GT Q8HR [place] Stop: 08/06/17 20:59 Last Admin: 06/09/17 12:56 Dose: Not Given Levetiracetam (Keppra) 1,000 mg GT Q8HR [place] Stop: 08/06/17 20:59 Last Admin: 06/09/17 12:56 Dose: 1,000 mg Magnesium Hydroxide (Milk Of Magnesia) 30 ml GT HS PRN PRN Reason: Constipation Stop: 08/06/17 19:17 Magnesium Oxide (Mag-Oxide) 400 mg GT DAILY [place] Stop: 08/07/17 08:59 Last Admin: 06/09/17 10:04 Dose: 400 mg Metoprolol Tartrate (Lopressor) 100 mg GT Q12HR [place] Stop: 08/06/17 20:59 Last Admin: 06/09/17 10:04 Dose: 100 mg Miscellaneous (Vancomycin Iv Per Pharmacy) 1 ea PRN PRN PRN Reason: PROTOCOL Stop: 08/07/17 07:59 Miscellaneous (Probiotic Screen) 1 ea PRN PRN PRN Reason: PROTOCOL Stop: 08/07/17 10:42 Phytonadione (Mephyton) 10 mg GT DAILY [facility] Stop: 08/07/17 19:59 Last Admin: 06/09/17 10:06 Dose: 10 mg Potassium Chloride (Potassium Chloride Elixir) 20 meq GT BID [facility] Stop: 08/07/17 08:59 Last Admin: 06/09/17 11:30 Dose: 20 meq Propranolol HCl (Inderal) 20 mg GT TID [place] Stop: 08/06/17 20:59 Last Admin: 06/09/17 10:03 Dose: 20 mg Pyridoxine HCl (Vitamin B6) 100 mg GT DAILY [facility] Stop: 08/07/17 08:59 Last Admin: 06/09/17 10:05 Dose: 100 mg Rifaximin (Xifaxan) 500 mg PO BID [place] Stop: 08/07/17 16:59 Last Admin: 06/09/17 10:06 Dose: 500 mg Sodium Phosphate (Fleet Enema) 135 ml RC Q48H PRN PRN Reason: IF DULCOLAX IS INEFFECTIVE Stop: 08/06/17 19:17 Thiamine HCl (Vitamin B1) 100 mg GT DAILY [facility] Stop: 08/07/17 08:59 Last Admin: 06/09/17 10:05 Dose: 100 mg Valproate Sodium (Depakene) 500 mg GT TID [place] PRN Reason: Protocol Stop: 08/06/17 20:59 Last Admin: 06/09/17 10:03 Dose: 500 mg CXR: CM, B/L ATx electrolytes has improved off ivf, Na now 141 F/U electrolytes, cbc continue lactulose Lab - Result Diagrams 06/10/17 04:40 06/10/17 04:40 Nutritional Asmnt/Malnutr-PDOC - Dietary Evaluation Malnutrition Findings (Please click <Entered> for more info): Nutritional Asmnt/Malnutrition Start: 06/09/17 11: 00 Text: Status: Complete Freq: Document 06/09/17 13:09 [facility] (Rec: 06/09/17 13:27 [facility] [id number]) Nutritional Asmnt/Malnutrition Patient General Information Nutritional Screening High Risk Screening Diagnosis Sepsis, UTI, right and left lower lobe infiltrate, pneumonia Pertinent Medical Hx/Surgical Hx Alcohol problem, liver disease , cirrhosis of the liver, hepatic comas, seizures, trachestomy, PEG, asthma, COPD Subjective Information Pt is a 52-year-old male from [facility] admitted with chief complaint of shortness of breath and falling oxygen saturation. Pt has tracheostomy to ventilator. Pt was unable to provide nutritional hx. Pt appears well nourished with no signs of muscle or fat depletion. Order to resume tube feeding; bag of Novosource Renal at bedside not yet started. Abdomen Ultrasound 06/09 notes some abdominal ascites. Current Diet Order/ Nutrition Support Novosource Renal at 55 ml/hr = 2640kcals, 120gm protein, 946ml free water Patient / S.O Can't verbalize diet edu Pertinent Medications Oscal with Vitamin D, Cefepime , D5w, Iron, Folate, Culturelle, MagOxide, Mephyton , KCl Elixir, Vitamin B6, Vitamin B1, Depakene, Vancomycin Pertinent Labs (06/09) Na 148H (improving), K 3L, Alkaline Phosphatase 171H, Ammonia 64H, Albumin 3.3L Nutritional Hx/Data Height 1.68 m Height (Calculated Centimeters) 167.6 Current Weight (lbs) 76.657 kg Weight (Calculated Kilograms) 76.7 Weight (Calculated Grams) 98054.1 Usual body Weight (lbs) 168 % Usual Body Weight 100 [place] Body Weight 142 % [place] Body Weight 119 Recent Weight Change No Weight Status Overweight GI Symptoms GI Symptoms Diarrhea Difficult in: Chewing Swallowing Food Allergies No Usual diet at home Nepro 1.8 (237 ml) QID 0900, 1300, 1700, 2100, sugar free ProStat 30 ml Skin Integrity/Comment: Vitor 12. Skin intact. Estimated Nutritional Goals BEE in Kcals: Using Current wt Calories/Kcals/Kg Based on current wt 76.8 kg with consideration of sepsis: Kcals Calculated 9207-5429 kcals/day (27-32 kcals/kg) to prevent wt gain with overwt status Protein: Using Current wt Protein g/kg: Based on current wt 76.8 kg with consideration of sepsis: Protein Calculated 92-115 gm/day (1.2-1.5 gm/kg) Fluid: ml Per MD/DO due to abnormal electrolytes Nutritional Problem 1. Problem Problem Excessive intake from enteral nutrition related to Etiology increased energy intake from calorically dense tube feeding formula as evidenced by Signs/Symptoms: current tube feeding meets 104 % of higher end of estimated calories needs. Malnutrition Alert Protein-Calorie Malnutrition N/A Is there a minimum of two criteria No selected? Query Text:Check all the applicable criteria. A minimum of two criteria are recommended for diagnosis of either severe or non-severe malnutrition. Malnutrition Related to Morbid Obesity Malnutrition related to morbid obesity No Intervention/Recommendation Recommendations by RD Decrease Calorie Intake Comments 1. Recommend decrease tube feeding Novosource Renal at goal rate of 50 ml/hr to provide 2400 kcals, 109 gm protein, and 860 ml free water per day. Monitor renal labs to prioritize protein needs. Expected Outcomes/Goals Expected Outcomes/Goals Provide pt with 100% of estimated nutritional needs. Physician Parameters for PEM Serum Albumin (g/dl) 3.1 - 3.4 (Mild)
[2017-06-17] MEDS: Atorvastatin Calcium 10 MG TAB GT SCH (20:55)
--- NOTE | 2017-06-17 21:53 | Progress Notes ---
DATE: 06/17/2017 PULMONARY PROGRESS NOTE PROBLEM LIST: 1. Persistent respiratory failure. 2. Acute on chronic pneumonia, improved. 3. Multidrug-resistant organism. 4. Chronic hepatic encephalopathy. PHYSICAL EXAMINATION: GENERAL: Not in any acute distress. VITAL SIGNS: Temperature is 98.6, blood pressure 140/54, saturation 100% on 30%. NECK: Veins not visualized. CHEST: Shows diminished air entry with occasional rhonchi. HEART: Regular. ABDOMEN: Soft, nontender. LABORATORY DATA: Chest x-ray today is less effusion in the left side and the right side is clear. White count is 11.1, BUN 86 and creatinine 1.9 with abnormal LFTs. ASSESSMENT: The patient clinically appears to be stable, slowly improving with multidrug-resistant organism type of infection. PLANS AND SUGGESTIONS: We will go and continue current treatment. Care and plan discussed with nursing staff and await for possibly transfer to the lower level of care pending bed availability. JOB# [id number]
[2017-06-18] MEDS: Lactulose 10 Gm/15 mL 30mL UDC GT SCH ×4 (00:12→18:09)
[2017-06-18] MEDS: Albuterol/Ipratropium Neb 3 ML AERS HHN SCH ×6 (02:05→22:11)
[2017-06-18 05:17] LABS: HEMATOCRIT 25.6 % (39.0-49.0); HEMOGLOBIN 8.5 gm/dL (13.2-17.3); MEAN CELL VOLUME 95.3 fl (80-99); MEAN CORPUSCULAR HEMOGLOBIN 31.7 pg (26.0-30.0); MEAN CORPUSCULAR HGB CONC 33.3 pg (28.0-36.0); MEAN PLATELET VOLUME 9.7 fl; PLATELET COUNT 77 Th/cmm (150-400); RED BLOOD COUNT 2.69 Mil/cmm (4.30-5.70); RED CELL DISTRIBUTION WIDTH 15.6 % (11.5-20.0)
[2017-06-18 05:37] LABS: WHITE BLOOD COUNT 3.9 Th/cmm (4.8-10.8)
[2017-06-18] MEDS: Levetiracetam 500 mg/5mL 5mL UDC GT SCH ×3 (05:38→20:14)
[2017-06-18 06:20] LABS: ANION GAP 6.3 (7.0-16.0); BUN - UREA NITROGEN 19 mg/dL (7-25); CARBON DIOXIDE 26.4 mEq/L (21.0-31.0); CHLORIDE 114 mEq/L (98-107); CREATININE - SERUM 0.5 mg/dL (0.7-1.3); GLUCOSE 106 mg/dL (70-105); POTASSIUM SERUM 3.7 mEq/L (3.5-5.1); SODIUM SERUM 143 mEq/L (136-145)
[2017-06-18] MEDS: Budesonide 0.5 Mg/2 mL Ud HHN SCH ×2 (06:59→19:13)
[2017-06-18 07:17] LABS: BAND NEUTROPHILE 1 % (0-10); EOSINOPHIL 1 % (0-5); NEUTROPHILS 47 % (40-80); PLATELET ESTIMATE DECREASED PLATELETS (NORMAL); POLYCHROMASIA 1+; TOTAL CELLS COUNTED 100
[2017-06-18 07:18] LABS: PLATELET MORPHOLOGY PLATELET CLUMPS SEEN (NORMAL)
[2017-06-18] MEDS: Lactobacillus Rhamnosus 10 Billion CFU Capsule PO SCH (08:49)
[2017-06-18] MEDS: Calcium Carb/Vit D 500 mg/200 U Tab GT SCH (08:49)
[2017-06-18] MEDS: Chlorhexidine Gluconate 0.12% 15mL Mouthwash MM SCH ×2 (08:50→20:16)
[2017-06-18] MEDS: Potassium Chloride Elixir 20 mEq /15 mL UDC GT SCH ×3 (08:50→20:14)
--- NOTE | 2017-06-18 09:58 | General Progress Note ---
Subjective - Review of Systems Service Date: 06/18/17 Events since last encounter: more diarrhea Subjective: awake, non communicative Objective - Results Result Diagrams: 06/18/17 04:59 06/18/17 04:59 Recent Labs: Laboratory Last Values WBC 3.9 Th/cmm (4.8-10.8) L 06/18/17 04:59 RBC 2.69 Mil/cmm (4.30-5.70) L 06/18/17 04:59 Hgb 8.5 gm/dL (13.2-17.3) L 06/18/17 04:59 Hct 25.6 % (39.0-49.0) L 06/18/17 04:59 MCV 95.3 fl (80-99) 06/18/17 04:59 MCH 31.7 pg (26.0-30.0) H 06/18/17 04:59 MCHC Differential 33.3 pg (28.0-36.0) 06/18/17 04:59 RDW 15.6 % (11.5-20.0) 06/18/17 04:59 Plt Count 77 Th/cmm (150-400) L 06/18/17 04:59 MPV 9.7 fl 06/18/17 04:59 Neutrophils % 50.2 % (40.0-80.0) 06/15/17 04:30 Band Neutrophils % 1 % (0-10) 06/18/17 04:59 Lymphocytes % 22.2 % (20.0-50.0) 06/15/17 04:30 Monocytes % 24.6 % (2.0-10.0) H 06/15/17 04:30 Eosinophils % 2.9 % (0.0-5.0) 06/15/17 04:30 Basophils % 0.3 % (0.0-2.0) 06/10/17 04:40 Neutrophils (Manual) 47 % (40-80) 06/18/17 04:59 Lymphocytes 35 % (20-50) 06/18/17 04:59 Monocytes 16 % (2-10) H 06/18/17 04:59 Eosinophils 1 % (0-5) 06/18/17 04:59 Basophils 0 % (0-3) 06/14/17 05:00 Metamyelocytes 2 % (0-0) H 06/13/17 07:20 Myelocytes 1 % 06/13/17 07:20 Nucleated RBCs 1.0 % (0-0) H 06/08/17 04:59 Platelet Estimate DECREASED PLATELETS (NORMAL) 06/18/17 04:59 Platelet Morphology PLATELET CLUMPS SEEN (NORMAL) 06/18/17 04:59 Polychromasia 1+ 06/18/17 04:59 Anisocytosis 1+ 06/17/17 07:00 RBC Morph Micro Appear ABNORMAL (NORMAL) 06/18/17 04:59 Specimen Source ARTERIAL 06/10/17 08:43 Sample Site Left Radial 06/10/17 08:43 pH 7.46 (7.35-7.45) H 06/10/17 08:43 pCO2 36.0 mmHg (35.0-45.0) 06/10/17 08:43 pO2 92.0 mmHg (80.0-100.0) 06/10/17 08:43 HCO3 26.4 mEq/L (20.0-26.0) H 06/10/17 08:43 Base Excess 1.9 mEq/L (-3.0-3.0) 06/10/17 08:43 O2 Saturation 98.0 % (92.0-100.0) 06/10/17 08:43 Jose L Test POSITIVE 06/10/17 08:43 Vent Rate 12 06/10/17 08:43 Inspired O2 40 06/10/17 08:43 Tidal Volume 500 06/10/17 08:43 PEEP 5 06/10/17 08:43 Pressure (ins/psv/peep) N/A 06/10/17 08:43 Critical Value SAURABH 06/10/17 08:43 Sodium 143 mEq/L (136-145) 06/18/17 04:59 Potassium 3.7 mEq/L (3.5-5.1) 06/18/17 04:59 Chloride 114 mEq/L (98-107) H 06/18/17 04:59 Carbon Dioxide 26.4 mEq/L (21.0-31.0) 06/18/17 04:59 Anion Gap 6.3 (7.0-16.0) L 06/18/17 04:59 BUN 19 mg/dL (7-25) 06/18/17 04:59 Creatinine 0.5 mg/dL (0.7-1.3) L 06/18/17 04:59 Est GFR ( Amer) > 60.0 ml/min (>90) 06/18/17 04:59 Est GFR (Non-Af Amer) > 60.0 ml/min 06/18/17 04:59 BUN/Creatinine Ratio 38.0 06/18/17 04:59 Glucose 106 mg/dL (70-105) H 06/18/17 04:59 Plasma/Ser Osmolality 313 mOsmol/kg (275-295) H 06/09/17 05:07 Whole Bld Lactic Acid 1.51 mmol/L (0.60-1.99) 06/08/17 04:59 Calcium 10.0 mg/dL (8.6-10.3) 06/18/17 04:59 Phosphorus 2.7 mg/dL (2.5-5.0) 06/08/17 04:59 Magnesium 1.6 mg/dL (1.9-2.7) L 06/14/17 05:00 Iron 71 ug/dL (38-169) 06/08/17 04:59 TIBC 173 ug/dL (250-450) L 06/08/17 04:59 Iron Saturation 41 % (15-55) 06/08/17 04:59 Unsaturated IBC 102 ug/dL (111-343) L 06/08/17 04:59 Ferritin 303 ng/mL (30-400) 06/08/17 04:59 Total Bilirubin 1.0 mg/dL (0.3-1.0) 06/16/17 04:40 Direct Bilirubin 0.29 mg/dL (0.0-0.2) H 06/16/17 04:40 AST 28 U/L (13-39) 06/16/17 04:40 ALT 13 U/L (7-52) 06/16/17 04:40 Alkaline Phosphatase 184 U/L (34-104) H 06/16/17 04:40 Ammonia 84 umol/L (16-53) H 06/17/17 07:00 Troponin I 0.01 ng/mL (0.01-0.05) 06/07/17 13:28 B-Natriuretic Peptide 91.8 pg/mL (5.0-100.0) 06/07/17 13:28 Total Protein 7.8 gm/dL (6.0-8.3) 06/16/17 04:40 Albumin 2.6 gm/dL (4.2-5.5) L 06/16/17 04:40 Globulin 5.2 gm/dL 06/16/17 04:40 Albumin/Globulin Ratio 0.5 (1.0-1.8) L 06/16/17 04:40 Vitamin B12 >1999 pg/mL (211-946) H 06/08/17 04:59 Folic Acid >20.0 ng/mL (>3.0) 06/08/17 04:59 Urine Source RANDOM 06/07/17 13:25 Urine Color NISA 06/07/17 13:25 Urine Clarity CLOUDY (CLEAR) 06/07/17 13:25 Urine pH 5.5 (4.6 - 8.0) 06/07/17 13:25 Ur Specific [place] 1.020 (1.005-1.030) 06/07/17 13:25 Urine Protein >=300 mg/dL (NEGATIVE) 06/07/17 13:25 Urine Glucose (UA) NEGATIVE mg/dL (NEGATIVE) 06/07/17 13:25 Urine Ketones 15 mg/dL (NEGATIVE) H 06/07/17 13:25 Urine Blood LARGE (NEGATIVE) H 06/07/17 13:25 Urine Nitrate POSITIVE (NEGATIVE) H 06/07/17 13:25 Urine Bilirubin MODERATE (NEGATIVE) H 06/07/17 13:25 Urine Urobilinogen 2.0 E.U./dL (0.2 - 1.0) 06/07/17 13:25 Ur Leukocyte Esterase MODERATE (NEGATIVE) H 06/07/17 13:25 Urine RBC >100 /hpf (0-5) H 06/07/17 13:25 Urine WBC 2-5 /hpf (0-5) H 06/07/17 13:25 Ur Epithelial Cells OCCASIONAL /lpf (FEW) 06/07/17 13:25 Urine Bacteria FEW /hpf (NONE SEEN) 06/07/17 13:25 Urine Osmolality 776 mOsmol/kg 06/09/17 05:53 Ur Random Sodium 119 mmol/L 06/08/17 18:16 Stool Occult Blood NEGATIVE (NEGATIVE) 06/12/17 17:30 Vancomycin Trough 18.6 ug/mL (10-20) 06/16/17 09:00 Blood Type O POSITIVE 06/09/17 09:30 Antibody Screen NEGATIVE 06/09/17 09:30 - Physical Exam Vitals and I&O: Vital Signs Temp 97.5 F 06/18/17 04:00 Pulse 69 06/18/17 09:18 Resp 12 06/18/17 07:00 BP 117/69 06/18/17 08:49 Pulse Ox 100 06/18/17 09:18 Intake & Output 06/17/17 06/18/17 06/18/17 18:59 06:59 18:59 Intake Total 450 2300 Output Total 2670 Balance 450 -370 Weight (lbs) 80.739 kg Intake: Intake, IV Amount 450 450 Colistimethate 75 mg In 100 100 Sodium Chloride 0.9% 100 ml @ 100 mls/hr IV Q12HR [facility] Rx#:[id number] Meropenem 1 gm In Sodium 100 100 Chloride 0.9% 100 ml @ 100 mls/hr IV Q12H [facility] Rx #:[id number] Vancomycin HCl 1.25 gm In 250 250 Sodium Chloride 0.9% 250 ml @ 165 mls/hr IV Q12H [facility] Rx#:[id number] Tube Feeding 1200 Other 650 Output: Urine 1320 Stool 1350 Other: Stool Characteristics Liquid Liquid Active Medications: Current Medications Albuterol/Ipratropium (Duoneb Neb) 3 ml HHN Q4HRT [facility] Stop: 08/07/17 18:59 Last Admin: 06/18/17 06:59 Dose: 3 ml Amlodipine Besylate (Norvasc) 5 mg GT Q12HR [facility] Stop: 08/06/17 20:59 Last Admin: 06/18/17 08:48 Dose: 5 mg Artificial Tears (Artificial Tears Ophth Soln) 2 drop EACH EYE Q6H PRN PRN Reason: eye dryness Stop: 08/06/17 20:54 Last Admin: 06/16/17 09:32 Dose: 2 drop Atorvastatin Calcium (Lipitor) 10 mg GT HS [place] PRN Reason: Protocol Stop: 08/06/17 20:59 Last Admin: 06/17/17 20:55 Dose: 10 mg Bisacodyl (Dulcolax 10 Mg Supp) 10 mg RC DAILY PRN PRN Reason: Constipation Stop: 08/06/17 19:17 Budesonide (Pulmicort) 0.5 mg HHN BIDRT [place] Stop: 08/07/17 18:59 Last Admin: 06/18/17 06:59 Dose: 0.5 mg Calcium/Vitamin D (Oscal W/Vitamin D) 1 tab GT DAILY [facility] Stop: 08/07/17 08:59 Last Admin: 06/18/17 08:49 Dose: 1 tab Chlorhexidine Gluconate (Peridex) 15 ml MM 0800,1999 [facility] Stop: 08/08/17 19:59 Last Admin: 06/18/17 08:50 Dose: 15 ml Folic Acid (Folate) 2.5 mg GT DAILY [facility] Stop: 08/07/17 08:59 Last Admin: 06/18/17 08:48 Dose: 2.5 mg Hydralazine HCl (Apresoline) 50 mg GT Q8HR [facility] Stop: 08/06/17 20:59 Last Admin: 06/18/17 05:03 Dose: Not Given Colistimethate Sodium 75 mg/ (Sodium Chloride) 100 mls @ 100 mls/hr IV Q12HR [facility] Stop: 08/10/17 20:59 Last Admin: 06/18/17 09:28 Dose: 100 mls/hr Meropenem 1 gm/ Sodium (Chloride) 100 mls @ 100 mls/hr IV Q12H [facility] Stop: 08/13/17 08:59 Last Admin: 06/18/17 08:47 Dose: 100 mls/hr Vancomycin HCl 1.25 gm/ Sodium (Chloride) 250 mls @ 165 mls/hr IV Q12H [facility] Stop: 08/15/17 09:59 Last Infusion: 06/18/17 05:04 Dose: Infused Lactobacillus Rhamnosus (Culturelle) 1 each PO DAILY [facility] Stop: 08/08/17 08:59 Last Admin: 06/18/17 08:49 Dose: 1 each Lactulose (Cephulac) 30 gm GT Q6HR [facility] Stop: 08/08/17 17:59 Last Admin: 06/18/17 05:38 Dose: 30 gm Levetiracetam (Keppra) 1,000 mg GT Q8HR [facility] Stop: 08/06/17 20:59 Last Admin: 06/18/17 05:38 Dose: 1,000 mg Lorazepam (Ativan) 1 mg IVP Q6H PRN; Protocol PRN Reason: Agitation Stop: 08/13/17 23:17 Last Admin: 06/18/17 08:48 Dose: 1 mg Magnesium Hydroxide (Milk Of Magnesia) 30 ml GT HS PRN PRN Reason: Constipation Stop: 08/06/17 19:17 Magnesium Oxide (Mag-Oxide) 400 mg GT DAILY [facility] Stop: 08/07/17 08:59 Last Admin: 06/18/17 08:49 Dose: 400 mg Metoprolol Tartrate (Lopressor) 100 mg GT Q12HR [place] Stop: 08/06/17 20:59 Last Admin: 06/18/17 08:49 Dose: 100 mg Miscellaneous (Vancomycin Iv Per Pharmacy) 1 ea PRN PRN PRN Reason: PROTOCOL Stop: 08/07/17 07:59 Miscellaneous (Probiotic Screen) 1 ea PRN PRN PRN Reason: PROTOCOL Stop: 08/07/17 10:42 Phytonadione (Mephyton) 10 mg GT DAILY [facility] Stop: 08/07/17 19:59 Last Admin: 06/18/17 09:31 Dose: 10 mg Potassium Chloride (Potassium Chloride Elixir) 20 meq GT TID [facility] Stop: 08/12/17 13:59 Last Admin: 06/18/17 08:50 Dose: 20 meq Propranolol HCl (Inderal) 20 mg GT TID [facility] Stop: 08/06/17 20:59 Last Admin: 06/18/17 08:49 Dose: 20 mg Pyridoxine HCl (Vitamin B6) 100 mg GT DAILY [facility] Stop: 08/07/17 08:59 Last Admin: 06/18/17 08:49 Dose: 100 mg Sodium Phosphate (Fleet Enema) 135 ml RC Q48H PRN PRN Reason: IF DULCOLAX IS INEFFECTIVE Stop: 08/06/17 19:17 Thiamine HCl (Vitamin B1) 100 mg GT DAILY [facility] Stop: 08/07/17 08:59 Last Admin: 06/18/17 08:49 Dose: 100 mg Valproate Sodium (Depakene) 500 mg GT TID [place] PRN Reason: Protocol Stop: 08/06/17 20:59 Last Admin: 06/18/17 08:49 Dose: 500 mg General: Alert, No acute distress HEENT: Atraumatic, PERRLA, EOMI, Mucous membr. moist/pink Neck: Supple, +2 carotid pulse wo bruit Cardiovascular: Regular rate, Normal S1, Normal S2 Lungs: Clear to auscultation, Other Abdomen: Bowel sounds, Soft Extremities: no Edema Neurological: Sensation intact Skin: no Rash Psych/Mental Status: Mood NL - Procedures Procedures: Procedures Procedure Code Date RESPIRATORY VENTILATION, GREATER THAN 96 CONSECUTIVE HOURS [id number] 06/07/17 Assessment/Plan - Problem List Patient Problems: All Active Problems ELEVATED NA+, AND BUN LEVELS (Acute) - Assessment Assessment: * SPLENOMEGALY. * THROMBOCYTOPENIA. Fluctuating, S/P TX * RESPIRATORY FAILURE. * ANEMIA OF CHRONIC DISEASE. stool OB not done. reorder no need for tx Nutritional Asmnt/Malnutr-PDOC - Dietary Evaluation Malnutrition Findings (Please click <Entered> for more info): Nutritional Asmnt/Malnutrition Start: 06/09/17 11: 00 Text: Status: Complete Freq: Document 06/09/17 13:09 [facility] (Rec: 06/09/17 13:27 [facility] [id number]) Nutritional Asmnt/Malnutrition Patient General Information Nutritional Screening High Risk Screening Diagnosis Sepsis, UTI, right and left lower lobe infiltrate, pneumonia Pertinent Medical Hx/Surgical Hx Alcohol problem, liver disease , cirrhosis of the liver, hepatic comas, seizures, trachestomy, PEG, asthma, COPD Subjective Information Pt is a 52-year-old male from [facility] admitted with chief complaint of shortness of breath and falling oxygen saturation. Pt has tracheostomy to ventilator. Pt was unable to provide nutritional hx. Pt appears well nourished with no signs of muscle or fat depletion. Order to resume tube feeding; bag of Novosource Renal at bedside not yet started. Abdomen Ultrasound 06/09 notes some abdominal ascites. Current Diet Order/ Nutrition Support Novosource Renal at 55 ml/hr = 2640kcals, 120gm protein, 946ml free water Patient / S.O Can't verbalize diet edu Pertinent Medications Oscal with Vitamin D, Cefepime , D5w, Iron, Folate, Culturelle, MagOxide, Mephyton , KCl Elixir, Vitamin B6, Vitamin B1, Depakene, Vancomycin Pertinent Labs (06/09) Na 148H (improving), K 3L, Alkaline Phosphatase 171H, Ammonia 64H, Albumin 3.3L Nutritional Hx/Data Height 1.68 m Height (Calculated Centimeters) 167.6 Current Weight (lbs) 76.657 kg Weight (Calculated Kilograms) 76.7 Weight (Calculated Grams) 02415.1 Usual body Weight (lbs) 168 % Usual Body Weight 100 [place] Body Weight 142 % [place] Body Weight 119 Recent Weight Change No Weight Status Overweight GI Symptoms GI Symptoms Diarrhea Difficult in: Chewing Swallowing Food Allergies No Usual diet at home Nepro 1.8 (237 ml) QID 0900, 1300, 1700, 2100, sugar free ProStat 30 ml Skin Integrity/Comment: Vitor 12. Skin intact. Estimated Nutritional Goals BEE in Kcals: Using Current wt Calories/Kcals/Kg Based on current wt 76.8 kg with consideration of sepsis: Kcals Calculated 8907-1665 kcals/day (27-32 kcals/kg) to prevent wt gain with overwt status Protein: Using Current wt Protein g/kg: Based on current wt 76.8 kg with consideration of sepsis: Protein Calculated 92-115 gm/day (1.2-1.5 gm/kg) Fluid: ml Per MD/DO due to abnormal electrolytes Nutritional Problem 1. Problem Problem Excessive intake from enteral nutrition related to Etiology increased energy intake from calorically dense tube feeding formula as evidenced by Signs/Symptoms: current tube feeding meets 104 % of higher end of estimated calories needs. Malnutrition Alert Protein-Calorie Malnutrition N/A Is there a minimum of two criteria No selected? Query Text:Check all the applicable criteria. A minimum of two criteria are recommended for diagnosis of either severe or non-severe malnutrition. Malnutrition Related to Morbid Obesity Malnutrition related to morbid obesity No Intervention/Recommendation Recommendations by RD Decrease Calorie Intake Comments 1. Recommend decrease tube feeding Novosource Renal at goal rate of 50 ml/hr to provide 2400 kcals, 109 gm protein, and 860 ml free water per day. Monitor renal labs to prioritize protein needs. Expected Outcomes/Goals Expected Outcomes/Goals Provide pt with 100% of estimated nutritional needs. Physician Parameters for PEM Serum Albumin (g/dl) 3.1 - 3.4 (Mild)
--- NOTE | 2017-06-18 10:03 | General Progress Note ---
Subjective - Review of Systems Service Date: 06/18/17 Subjective: sleeping, arousable, on vent Objective - Results Result Diagrams: 06/18/17 04:59 06/18/17 04:59 Recent Labs: Laboratory Last Values WBC 3.9 Th/cmm (4.8-10.8) L 06/18/17 04:59 RBC 2.69 Mil/cmm (4.30-5.70) L 06/18/17 04:59 Hgb 8.5 gm/dL (13.2-17.3) L 06/18/17 04:59 Hct 25.6 % (39.0-49.0) L 06/18/17 04:59 MCV 95.3 fl (80-99) 06/18/17 04:59 MCH 31.7 pg (26.0-30.0) H 06/18/17 04:59 MCHC Differential 33.3 pg (28.0-36.0) 06/18/17 04:59 RDW 15.6 % (11.5-20.0) 06/18/17 04:59 Plt Count 77 Th/cmm (150-400) L 06/18/17 04:59 MPV 9.7 fl 06/18/17 04:59 Neutrophils % 50.2 % (40.0-80.0) 06/15/17 04:30 Band Neutrophils % 1 % (0-10) 06/18/17 04:59 Lymphocytes % 22.2 % (20.0-50.0) 06/15/17 04:30 Monocytes % 24.6 % (2.0-10.0) H 06/15/17 04:30 Eosinophils % 2.9 % (0.0-5.0) 06/15/17 04:30 Basophils % 0.3 % (0.0-2.0) 06/10/17 04:40 Neutrophils (Manual) 47 % (40-80) 06/18/17 04:59 Lymphocytes 35 % (20-50) 06/18/17 04:59 Monocytes 16 % (2-10) H 06/18/17 04:59 Eosinophils 1 % (0-5) 06/18/17 04:59 Basophils 0 % (0-3) 06/14/17 05:00 Metamyelocytes 2 % (0-0) H 06/13/17 07:20 Myelocytes 1 % 06/13/17 07:20 Nucleated RBCs 1.0 % (0-0) H 06/08/17 04:59 Platelet Estimate DECREASED PLATELETS (NORMAL) 06/18/17 04:59 Platelet Morphology PLATELET CLUMPS SEEN (NORMAL) 06/18/17 04:59 Polychromasia 1+ 06/18/17 04:59 Anisocytosis 1+ 06/17/17 07:00 RBC Morph Micro Appear ABNORMAL (NORMAL) 06/18/17 04:59 Specimen Source ARTERIAL 06/10/17 08:43 Sample Site Left Radial 06/10/17 08:43 pH 7.46 (7.35-7.45) H 06/10/17 08:43 pCO2 36.0 mmHg (35.0-45.0) 06/10/17 08:43 pO2 92.0 mmHg (80.0-100.0) 06/10/17 08:43 HCO3 26.4 mEq/L (20.0-26.0) H 06/10/17 08:43 Base Excess 1.9 mEq/L (-3.0-3.0) 06/10/17 08:43 O2 Saturation 98.0 % (92.0-100.0) 06/10/17 08:43 Jose L Test POSITIVE 06/10/17 08:43 Vent Rate 12 06/10/17 08:43 Inspired O2 40 06/10/17 08:43 Tidal Volume 500 06/10/17 08:43 PEEP 5 06/10/17 08:43 Pressure (ins/psv/peep) N/A 06/10/17 08:43 Critical Value SAURABH 06/10/17 08:43 Sodium 143 mEq/L (136-145) 06/18/17 04:59 Potassium 3.7 mEq/L (3.5-5.1) 06/18/17 04:59 Chloride 114 mEq/L (98-107) H 06/18/17 04:59 Carbon Dioxide 26.4 mEq/L (21.0-31.0) 06/18/17 04:59 Anion Gap 6.3 (7.0-16.0) L 06/18/17 04:59 BUN 19 mg/dL (7-25) 06/18/17 04:59 Creatinine 0.5 mg/dL (0.7-1.3) L 06/18/17 04:59 Est GFR ( Amer) > 60.0 ml/min (>90) 06/18/17 04:59 Est GFR (Non-Af Amer) > 60.0 ml/min 06/18/17 04:59 BUN/Creatinine Ratio 38.0 06/18/17 04:59 Glucose 106 mg/dL (70-105) H 06/18/17 04:59 Plasma/Ser Osmolality 313 mOsmol/kg (275-295) H 06/09/17 05:07 Whole Bld Lactic Acid 1.51 mmol/L (0.60-1.99) 06/08/17 04:59 Calcium 10.0 mg/dL (8.6-10.3) 06/18/17 04:59 Phosphorus 2.7 mg/dL (2.5-5.0) 06/08/17 04:59 Magnesium 1.6 mg/dL (1.9-2.7) L 06/14/17 05:00 Iron 71 ug/dL (38-169) 06/08/17 04:59 TIBC 173 ug/dL (250-450) L 06/08/17 04:59 Iron Saturation 41 % (15-55) 06/08/17 04:59 Unsaturated IBC 102 ug/dL (111-343) L 06/08/17 04:59 Ferritin 303 ng/mL (30-400) 06/08/17 04:59 Total Bilirubin 1.0 mg/dL (0.3-1.0) 06/16/17 04:40 Direct Bilirubin 0.29 mg/dL (0.0-0.2) H 06/16/17 04:40 AST 28 U/L (13-39) 06/16/17 04:40 ALT 13 U/L (7-52) 06/16/17 04:40 Alkaline Phosphatase 184 U/L (34-104) H 06/16/17 04:40 Ammonia 84 umol/L (16-53) H 06/17/17 07:00 Troponin I 0.01 ng/mL (0.01-0.05) 06/07/17 13:28 B-Natriuretic Peptide 91.8 pg/mL (5.0-100.0) 06/07/17 13:28 Total Protein 7.8 gm/dL (6.0-8.3) 06/16/17 04:40 Albumin 2.6 gm/dL (4.2-5.5) L 06/16/17 04:40 Globulin 5.2 gm/dL 06/16/17 04:40 Albumin/Globulin Ratio 0.5 (1.0-1.8) L 06/16/17 04:40 Vitamin B12 >1999 pg/mL (211-946) H 06/08/17 04:59 Folic Acid >20.0 ng/mL (>3.0) 06/08/17 04:59 Urine Source RANDOM 06/07/17 13:25 Urine Color NISA 06/07/17 13:25 Urine Clarity CLOUDY (CLEAR) 06/07/17 13:25 Urine pH 5.5 (4.6 - 8.0) 06/07/17 13:25 Ur Specific Randall 1.020 (1.005-1.030) 06/07/17 13:25 Urine Protein >=300 mg/dL (NEGATIVE) 06/07/17 13:25 Urine Glucose (UA) NEGATIVE mg/dL (NEGATIVE) 06/07/17 13:25 Urine Ketones 15 mg/dL (NEGATIVE) H 06/07/17 13:25 Urine Blood LARGE (NEGATIVE) H 06/07/17 13:25 Urine Nitrate POSITIVE (NEGATIVE) H 06/07/17 13:25 Urine Bilirubin MODERATE (NEGATIVE) H 06/07/17 13:25 Urine Urobilinogen 2.0 E.U./dL (0.2 - 1.0) 06/07/17 13:25 Ur Leukocyte Esterase MODERATE (NEGATIVE) H 06/07/17 13:25 Urine RBC >100 /hpf (0-5) H 06/07/17 13:25 Urine WBC 2-5 /hpf (0-5) H 06/07/17 13:25 Ur Epithelial Cells OCCASIONAL /lpf (FEW) 06/07/17 13:25 Urine Bacteria FEW /hpf (NONE SEEN) 06/07/17 13:25 Urine Osmolality 776 mOsmol/kg 06/09/17 05:53 Ur Random Sodium 119 mmol/L 06/08/17 18:16 Stool Occult Blood NEGATIVE (NEGATIVE) 06/12/17 17:30 Vancomycin Trough 18.6 ug/mL (10-20) 06/16/17 09:00 Blood Type O POSITIVE 06/09/17 09:30 Antibody Screen NEGATIVE 06/09/17 09:30 - Physical Exam Vitals and I&O: Vital Signs Temp 97.5 F 06/18/17 04:00 Pulse 69 06/18/17 09:18 Resp 12 06/18/17 07:00 BP 117/69 06/18/17 08:49 Pulse Ox 100 06/18/17 09:18 Intake & Output 06/17/17 06/18/17 06/18/17 18:59 06:59 18:59 Intake Total 450 2300 Output Total 2670 Balance 450 -370 Weight (lbs) 80.739 kg Intake: Intake, IV Amount 450 450 Colistimethate 75 mg In 100 100 Sodium Chloride 0.9% 100 ml @ 100 mls/hr IV Q12HR [facility] Rx#:[id number] Meropenem 1 gm In Sodium 100 100 Chloride 0.9% 100 ml @ 100 mls/hr IV Q12H [facility] Rx #:[id number] Vancomycin HCl 1.25 gm In 250 250 Sodium Chloride 0.9% 250 ml @ 165 mls/hr IV Q12H [facility] Rx#:[id number] Tube Feeding 1200 Other 650 Output: Urine 1320 Stool 1350 Other: Stool Characteristics Liquid Liquid Active Medications: Current Medications Albuterol/Ipratropium (Duoneb Neb) 3 ml HHN Q4HRT [facility] Stop: 08/07/17 18:59 Last Admin: 06/18/17 06:59 Dose: 3 ml Amlodipine Besylate (Norvasc) 5 mg GT Q12HR [place] Stop: 08/06/17 20:59 Last Admin: 06/18/17 08:48 Dose: 5 mg Artificial Tears (Artificial Tears Ophth Soln) 2 drop EACH EYE Q6H PRN PRN Reason: eye dryness Stop: 08/06/17 20:54 Last Admin: 06/16/17 09:32 Dose: 2 drop Atorvastatin Calcium (Lipitor) 10 mg GT HS [place] PRN Reason: Protocol Stop: 08/06/17 20:59 Last Admin: 06/17/17 20:55 Dose: 10 mg Bisacodyl (Dulcolax 10 Mg Supp) 10 mg RC DAILY PRN PRN Reason: Constipation Stop: 08/06/17 19:17 Budesonide (Pulmicort) 0.5 mg HHN BIDRT [place] Stop: 08/07/17 18:59 Last Admin: 06/18/17 06:59 Dose: 0.5 mg Calcium/Vitamin D (Oscal W/Vitamin D) 1 tab GT DAILY [place] Stop: 08/07/17 08:59 Last Admin: 06/18/17 08:49 Dose: 1 tab Chlorhexidine Gluconate (Peridex) 15 ml MM 0800,2000 [place] Stop: 08/08/17 19:59 Last Admin: 06/18/17 08:50 Dose: 15 ml Folic Acid (Folate) 2.5 mg GT DAILY [place] Stop: 08/07/17 08:59 Last Admin: 06/18/17 08:48 Dose: 2.5 mg Hydralazine HCl (Apresoline) 50 mg GT Q8HR [place] Stop: 08/06/17 20:59 Last Admin: 06/18/17 05:03 Dose: Not Given Colistimethate Sodium 75 mg/ (Sodium Chloride) 100 mls @ 100 mls/hr IV Q12HR [facility] Stop: 08/10/17 20:59 Last Admin: 06/18/17 09:28 Dose: 100 mls/hr Meropenem 1 gm/ Sodium (Chloride) 100 mls @ 100 mls/hr IV Q12H [facility] Stop: 08/13/17 08:59 Last Admin: 06/18/17 08:47 Dose: 100 mls/hr Vancomycin HCl 1.25 gm/ Sodium (Chloride) 250 mls @ 165 mls/hr IV Q12H [place] Stop: 08/15/17 09:59 Last Infusion: 06/18/17 05:04 Dose: Infused Lactobacillus Rhamnosus (Culturelle) 1 each PO DAILY [facility] Stop: 08/08/17 08:59 Last Admin: 06/18/17 08:49 Dose: 1 each Lactulose (Cephulac) 30 gm GT Q6HR [place] Stop: 08/08/17 17:59 Last Admin: 06/18/17 05:38 Dose: 30 gm Levetiracetam (Keppra) 1,000 mg GT Q8HR [place] Stop: 08/06/17 20:59 Last Admin: 06/18/17 05:38 Dose: 1,000 mg Lorazepam (Ativan) 1 mg IVP Q6H PRN; Protocol PRN Reason: Agitation Stop: 08/13/17 23:17 Last Admin: 06/18/17 08:48 Dose: 1 mg Magnesium Hydroxide (Milk Of Magnesia) 30 ml GT HS PRN PRN Reason: Constipation Stop: 08/06/17 19:17 Magnesium Oxide (Mag-Oxide) 400 mg GT DAILY [place] Stop: 08/07/17 08:59 Last Admin: 06/18/17 08:49 Dose: 400 mg Metoprolol Tartrate (Lopressor) 100 mg GT Q12HR [place] Stop: 08/06/17 20:59 Last Admin: 06/18/17 08:49 Dose: 100 mg Miscellaneous (Vancomycin Iv Per Pharmacy) 1 ea PRN PRN PRN Reason: PROTOCOL Stop: 08/07/17 07:59 Miscellaneous (Probiotic Screen) 1 ea PRN PRN PRN Reason: PROTOCOL Stop: 08/07/17 10:42 Phytonadione (Mephyton) 10 mg GT DAILY [facility] Stop: 08/07/17 19:59 Last Admin: 06/18/17 09:31 Dose: 10 mg Potassium Chloride (Potassium Chloride Elixir) 20 meq GT TID [facility] Stop: 08/12/17 13:59 Last Admin: 06/18/17 08:50 Dose: 20 meq Propranolol HCl (Inderal) 20 mg GT TID [facility] Stop: 08/06/17 20:59 Last Admin: 06/18/17 08:49 Dose: 20 mg Pyridoxine HCl (Vitamin B6) 100 mg GT DAILY [facility] Stop: 08/07/17 08:59 Last Admin: 06/18/17 08:49 Dose: 100 mg Sodium Phosphate (Fleet Enema) 135 ml RC Q48H PRN PRN Reason: IF DULCOLAX IS INEFFECTIVE Stop: 08/06/17 19:17 Thiamine HCl (Vitamin B1) 100 mg GT DAILY [facility] Stop: 08/07/17 08:59 Last Admin: 06/18/17 08:49 Dose: 100 mg Valproate Sodium (Depakene) 500 mg GT TID [place] PRN Reason: Protocol Stop: 08/06/17 20:59 Last Admin: 06/18/17 08:49 Dose: 500 mg General: Alert, No acute distress HEENT: Atraumatic, PERRLA, EOMI, Mucous membr. moist/pink Neck: Supple, +2 carotid pulse wo bruit Cardiovascular: Regular rate, Normal S1, Normal S2 Lungs: Clear to auscultation, Other Abdomen: Bowel sounds, Soft Extremities: no Edema Neurological: Sensation intact Skin: no Rash Psych/Mental Status: Mood NL - Procedures Procedures: Procedures Procedure Code Date RESPIRATORY VENTILATION, GREATER THAN 96 CONSECUTIVE HOURS [id number] 06/07/17 Assessment/Plan - Problem List Patient Problems: All Active Problems ELEVATED NA+, AND BUN LEVELS (Acute) - Assessment Assessment: Hypernatremia RFVD Sepsis etio? CLD Thrombocytopenia Anemia of CD Hypokalemia - Plan Plan: Lab - Result Diagrams 06/09/17 09:30 06/09/17 05:07 Current Medications Albuterol/Ipratropium (Duoneb Neb) 3 ml HHN Q4HR [facility] Stop: 08/06/17 19:59 Last Admin: 06/09/17 11:08 Dose: 3 ml Albuterol/Ipratropium (Duoneb Neb) 3 ml HHN Q4HRT [facility] Stop: 08/07/17 18:59 Amlodipine Besylate (Norvasc) 5 mg GT Q12HR [facility] Stop: 08/06/17 20:59 Last Admin: 06/09/17 10:05 Dose: 5 mg Artificial Tears (Artificial Tears Ophth Soln) 2 drop EACH EYE Q6H PRN PRN Reason: eye dryness Stop: 08/06/17 20:54 Atorvastatin Calcium (Lipitor) 10 mg GT HS [place] PRN Reason: Protocol Stop: 08/06/17 20:59 Last Admin: 06/08/17 21:32 Dose: 10 mg Bisacodyl (Dulcolax 10 Mg Supp) 10 mg RC DAILY PRN PRN Reason: Constipation Stop: 08/06/17 19:17 Budesonide (Pulmicort) 0.5 mg HHN BIDRT [facility] Stop: 08/07/17 18:59 Last Admin: 06/08/17 19:10 Dose: 0.5 mg Calcium/Vitamin D (Oscal W/Vitamin D) 1 tab GT DAILY [facility] Stop: 08/07/17 08:59 Last Admin: 06/09/17 10:05 Dose: 1 tab Chlorhexidine Gluconate (Peridex) 15 ml MM Q12HR [facility] Stop: 08/06/17 20:59 Last Admin: 06/09/17 09:00 Dose: 15 ml Clonazepam (Klonopin) 2 mg GT DAILY [facility] Stop: 08/07/17 08:59 Last Admin: 06/09/17 10:05 Dose: 2 mg Docusate Sodium (Colace) 100 mg GT BID [place] Stop: 08/06/17 20:59 Last Admin: 06/09/17 09:00 Dose: Not Given Ferrous Sulfate (Iron) 300 mg GT BID [facility] Stop: 08/06/17 20:59 Last Admin: 06/09/17 10:03 Dose: 300 mg Folic Acid (Folate) 2.5 mg GT DAILY [place] Stop: 08/07/17 08:59 Last Admin: 06/09/17 10:05 Dose: 2.5 mg Hydralazine HCl (Apresoline) 50 mg GT Q8HR [place] Stop: 08/06/17 20:59 Last Admin: 06/09/17 12:56 Dose: 50 mg Cefepime HCl 1 gm/ Dextrose 50 mls @ 100 mls/hr IV Q8H [facility] Stop: 08/07/17 00:59 Last Infusion: 06/09/17 09:30 Dose: Infused Vancomycin HCl 1.25 gm/ Sodium (Chloride) 250 mls @ 165 mls/hr IV Q12H [facility] Stop: 08/07/17 09:59 Last Infusion: 06/09/17 11:31 Dose: Infused Dextrose (D5w) 1,000 mls @ 150 mls/hr IV .Q6H40M [facility] Stop: 08/07/17 09:37 Last Admin: 06/09/17 07:33 Dose: 150 mls/hr Lactobacillus Rhamnosus (Culturelle) 1 each PO DAILY [facility] Stop: 08/08/17 08:59 Last Admin: 06/09/17 10:04 Dose: 1 each Lactulose (Cephulac) 30 gm GT Q8HR [facility] Stop: 08/06/17 20:59 Last Admin: 06/09/17 12:56 Dose: Not Given Levetiracetam (Keppra) 1,000 mg GT Q8HR [facility] Stop: 08/06/17 20:59 Last Admin: 06/09/17 12:56 Dose: 1,000 mg Magnesium Hydroxide (Milk Of Magnesia) 30 ml GT HS PRN PRN Reason: Constipation Stop: 08/06/17 19:17 Magnesium Oxide (Mag-Oxide) 400 mg GT DAILY [facility] Stop: 08/07/17 08:59 Last Admin: 06/09/17 10:04 Dose: 400 mg Metoprolol Tartrate (Lopressor) 100 mg GT Q12HR [facility] Stop: 08/06/17 20:59 Last Admin: 06/09/17 10:04 Dose: 100 mg Miscellaneous (Vancomycin Iv Per Pharmacy) 1 ea PRN PRN PRN Reason: PROTOCOL Stop: 08/07/17 07:59 Miscellaneous (Probiotic Screen) 1 ea PRN PRN PRN Reason: PROTOCOL Stop: 08/07/17 10:42 Phytonadione (Mephyton) 10 mg GT DAILY [facility] Stop: 08/07/17 19:59 Last Admin: 06/09/17 10:06 Dose: 10 mg Potassium Chloride (Potassium Chloride Elixir) 20 meq GT BID [place] Stop: 08/07/17 08:59 Last Admin: 06/09/17 11:30 Dose: 20 meq Propranolol HCl (Inderal) 20 mg GT TID [facility] Stop: 08/06/17 20:59 Last Admin: 06/09/17 10:03 Dose: 20 mg Pyridoxine HCl (Vitamin B6) 100 mg GT DAILY [place] Stop: 08/07/17 08:59 Last Admin: 06/09/17 10:05 Dose: 100 mg Rifaximin (Xifaxan) 500 mg PO BID [facility] Stop: 08/07/17 16:59 Last Admin: 06/09/17 10:06 Dose: 500 mg Sodium Phosphate (Fleet Enema) 135 ml RC Q48H PRN PRN Reason: IF DULCOLAX IS INEFFECTIVE Stop: 08/06/17 19:17 Thiamine HCl (Vitamin B1) 100 mg GT DAILY [facility] Stop: 08/07/17 08:59 Last Admin: 06/09/17 10:05 Dose: 100 mg Valproate Sodium (Depakene) 500 mg GT TID [place] PRN Reason: Protocol Stop: 08/06/17 20:59 Last Admin: 06/09/17 10:03 Dose: 500 mg CXR: CM, B/L ATx electrolytes has improved off ivf, Na now 143 F/U electrolytes, cbc continue lactulose Lab - Result Diagrams 06/18/17 04:59 06/18/17 04:59 Nutritional Asmnt/Malnutr-PDOC - Dietary Evaluation Malnutrition Findings (Please click <Entered> for more info): Nutritional Asmnt/Malnutrition Start: 06/09/17 11: 00 Text: Status: Complete Freq: Document 06/09/17 13:09 [facility] (Rec: 06/09/17 13:27 [facility] [id number]) Nutritional Asmnt/Malnutrition Patient General Information Nutritional Screening High Risk Screening Diagnosis Sepsis, UTI, right and left lower lobe infiltrate, pneumonia Pertinent Medical Hx/Surgical Hx Alcohol problem, liver disease , cirrhosis of the liver, hepatic comas, seizures, trachestomy, PEG, asthma, COPD Subjective Information Pt is a 52-year-old male from [facility] admitted with chief complaint of shortness of breath and falling oxygen saturation. Pt has tracheostomy to ventilator. Pt was unable to provide nutritional hx. Pt appears well nourished with no signs of muscle or fat depletion. Order to resume tube feeding; bag of Novosource Renal at bedside not yet started. Abdomen Ultrasound 06/09 notes some abdominal ascites. Current Diet Order/ Nutrition Support Novosource Renal at 55 ml/hr = 2640kcals, 120gm protein, 946ml free water Patient / S.O Can't verbalize diet edu Pertinent Medications Oscal with Vitamin D, Cefepime , D5w, Iron, Folate, Culturelle, MagOxide, Mephyton , KCl Elixir, Vitamin B6, Vitamin B1, Depakene, Vancomycin Pertinent Labs (06/09) Na 148H (improving), K 3L, Alkaline Phosphatase 171H, Ammonia 64H, Albumin 3.3L Nutritional Hx/Data Height 1.68 m Height (Calculated Centimeters) 167.6 Current Weight (lbs) 76.657 kg Weight (Calculated Kilograms) 76.7 Weight (Calculated Grams) 03860.1 Usual body Weight (lbs) 168 % Usual Body Weight 100 [place] Body Weight 142 % [place] Body Weight 119 Recent Weight Change No Weight Status Overweight GI Symptoms GI Symptoms Diarrhea Difficult in: Chewing Swallowing Food Allergies No Usual diet at home Nepro 1.8 (237 ml) QID 0900, 1300, 1700, 2100, sugar free ProStat 30 ml Skin Integrity/Comment: Vitor Thomas. Skin intact. Estimated Nutritional Goals BEE in Kcals: Using Current wt Calories/Kcals/Kg Based on current wt 76.8 kg with consideration of sepsis: Kcals Calculated 8091-6355 kcals/day (27-32 kcals/kg) to prevent wt gain with overwt status Protein: Using Current wt Protein g/kg: Based on current wt 76.8 kg with consideration of sepsis: Protein Calculated 92-115 gm/day (1.2-1.5 gm/kg) Fluid: ml Per MD/DO due to abnormal electrolytes Nutritional Problem 1. Problem Problem Excessive intake from enteral nutrition related to Etiology increased energy intake from calorically dense tube feeding formula as evidenced by Signs/Symptoms: current tube feeding meets 104 % of higher end of estimated calories needs. Malnutrition Alert Protein-Calorie Malnutrition N/A Is there a minimum of two criteria No selected? Query Text:Check all the applicable criteria. A minimum of two criteria are recommended for diagnosis of either severe or non-severe malnutrition. Malnutrition Related to Morbid Obesity Malnutrition related to morbid obesity No Intervention/Recommendation Recommendations by RD Decrease Calorie Intake Comments 1. Recommend decrease tube feeding Novosource Renal at goal rate of 50 ml/hr to provide 2400 kcals, 109 gm protein, and 860 ml free water per day. Monitor renal labs to prioritize protein needs. Expected Outcomes/Goals Expected Outcomes/Goals Provide pt with 100% of estimated nutritional needs. Physician Parameters for PEM Serum Albumin (g/dl) 3.1 - 3.4 (Mild)
[2017-06-18] MEDS ORDERED: Diatrizoate Meglumine/Diatri 30 mL Sol PO ONE (12:23)
--- NOTE | 2017-06-18 14:35 | General Progress Note ---
Subjective - Review of Systems Events since last encounter: on vent no distress Subjective: on vent, afebrile nad Objective - Results Result Diagrams: 06/18/17 04:59 06/18/17 04:59 Recent Labs: Laboratory Last Values WBC 3.9 Th/cmm (4.8-10.8) L 06/18/17 04:59 RBC 2.69 Mil/cmm (4.30-5.70) L 06/18/17 04:59 Hgb 8.5 gm/dL (13.2-17.3) L 06/18/17 04:59 Hct 25.6 % (39.0-49.0) L 06/18/17 04:59 MCV 95.3 fl (80-99) 06/18/17 04:59 MCH 31.7 pg (26.0-30.0) H 06/18/17 04:59 MCHC Differential 33.3 pg (28.0-36.0) 06/18/17 04:59 RDW 15.6 % (11.5-20.0) 06/18/17 04:59 Plt Count 77 Th/cmm (150-400) L 06/18/17 04:59 MPV 9.7 fl 06/18/17 04:59 Neutrophils % 50.2 % (40.0-80.0) 06/15/17 04:30 Band Neutrophils % 1 % (0-10) 06/18/17 04:59 Lymphocytes % 22.2 % (20.0-50.0) 06/15/17 04:30 Monocytes % 24.6 % (2.0-10.0) H 06/15/17 04:30 Eosinophils % 2.9 % (0.0-5.0) 06/15/17 04:30 Basophils % 0.3 % (0.0-2.0) 06/10/17 04:40 Neutrophils (Manual) 47 % (40-80) 06/18/17 04:59 Lymphocytes 35 % (20-50) 06/18/17 04:59 Monocytes 16 % (2-10) H 06/18/17 04:59 Eosinophils 1 % (0-5) 06/18/17 04:59 Basophils 0 % (0-3) 06/14/17 05:00 Metamyelocytes 2 % (0-0) H 06/13/17 07:20 Myelocytes 1 % 06/13/17 07:20 Nucleated RBCs 1.0 % (0-0) H 06/08/17 04:59 Platelet Estimate DECREASED PLATELETS (NORMAL) 06/18/17 04:59 Platelet Morphology PLATELET CLUMPS SEEN (NORMAL) 06/18/17 04:59 Polychromasia 1+ 06/18/17 04:59 Anisocytosis 1+ 06/17/17 07:00 RBC Morph Micro Appear ABNORMAL (NORMAL) 06/18/17 04:59 Specimen Source ARTERIAL 06/10/17 08:43 Sample Site Left Radial 06/10/17 08:43 pH 7.46 (7.35-7.45) H 06/10/17 08:43 pCO2 36.0 mmHg (35.0-45.0) 06/10/17 08:43 pO2 92.0 mmHg (80.0-100.0) 06/10/17 08:43 HCO3 26.4 mEq/L (20.0-26.0) H 06/10/17 08:43 Base Excess 1.9 mEq/L (-3.0-3.0) 06/10/17 08:43 O2 Saturation 98.0 % (92.0-100.0) 06/10/17 08:43 Jose L Test POSITIVE 06/10/17 08:43 Vent Rate 12 06/10/17 08:43 Inspired O2 40 06/10/17 08:43 Tidal Volume 500 06/10/17 08:43 PEEP 5 06/10/17 08:43 Pressure (ins/psv/peep) N/A 06/10/17 08:43 Critical Value SAURABH 06/10/17 08:43 Sodium 143 mEq/L (136-145) 06/18/17 04:59 Potassium 3.7 mEq/L (3.5-5.1) 06/18/17 04:59 Chloride 114 mEq/L (98-107) H 06/18/17 04:59 Carbon Dioxide 26.4 mEq/L (21.0-31.0) 06/18/17 04:59 Anion Gap 6.3 (7.0-16.0) L 06/18/17 04:59 BUN 19 mg/dL (7-25) 06/18/17 04:59 Creatinine 0.5 mg/dL (0.7-1.3) L 06/18/17 04:59 Est GFR ( Amer) > 60.0 ml/min (>90) 06/18/17 04:59 Est GFR (Non-Af Amer) > 60.0 ml/min 06/18/17 04:59 BUN/Creatinine Ratio 38.0 06/18/17 04:59 Glucose 106 mg/dL (70-105) H 06/18/17 04:59 Plasma/Ser Osmolality 313 mOsmol/kg (275-295) H 06/09/17 05:07 Whole Bld Lactic Acid 1.51 mmol/L (0.60-1.99) 06/08/17 04:59 Calcium 10.0 mg/dL (8.6-10.3) 06/18/17 04:59 Phosphorus 2.7 mg/dL (2.5-5.0) 06/08/17 04:59 Magnesium 1.6 mg/dL (1.9-2.7) L 06/14/17 05:00 Iron 71 ug/dL (38-169) 06/08/17 04:59 TIBC 173 ug/dL (250-450) L 06/08/17 04:59 Iron Saturation 41 % (15-55) 06/08/17 04:59 Unsaturated IBC 102 ug/dL (111-343) L 06/08/17 04:59 Ferritin 303 ng/mL (30-400) 06/08/17 04:59 Total Bilirubin 1.0 mg/dL (0.3-1.0) 06/16/17 04:40 Direct Bilirubin 0.29 mg/dL (0.0-0.2) H 06/16/17 04:40 AST 28 U/L (13-39) 06/16/17 04:40 ALT 13 U/L (7-52) 06/16/17 04:40 Alkaline Phosphatase 184 U/L (34-104) H 06/16/17 04:40 Ammonia 84 umol/L (16-53) H 06/17/17 07:00 Troponin I 0.01 ng/mL (0.01-0.05) 06/07/17 13:28 B-Natriuretic Peptide 91.8 pg/mL (5.0-100.0) 06/07/17 13:28 Total Protein 7.8 gm/dL (6.0-8.3) 06/16/17 04:40 Albumin 2.6 gm/dL (4.2-5.5) L 06/16/17 04:40 Globulin 5.2 gm/dL 06/16/17 04:40 Albumin/Globulin Ratio 0.5 (1.0-1.8) L 06/16/17 04:40 Vitamin B12 >1999 pg/mL (211-946) H 06/08/17 04:59 Folic Acid >20.0 ng/mL (>3.0) 06/08/17 04:59 Urine Source RANDOM 06/07/17 13:25 Urine Color NISA 06/07/17 13:25 Urine Clarity CLOUDY (CLEAR) 06/07/17 13:25 Urine pH 5.5 (4.6 - 8.0) 06/07/17 13:25 Ur Specific [place] 1.020 (1.005-1.030) 06/07/17 13:25 Urine Protein >=300 mg/dL (NEGATIVE) 06/07/17 13:25 Urine Glucose (UA) NEGATIVE mg/dL (NEGATIVE) 06/07/17 13:25 Urine Ketones 15 mg/dL (NEGATIVE) H 06/07/17 13:25 Urine Blood LARGE (NEGATIVE) H 06/07/17 13:25 Urine Nitrate POSITIVE (NEGATIVE) H 06/07/17 13:25 Urine Bilirubin MODERATE (NEGATIVE) H 06/07/17 13:25 Urine Urobilinogen 2.0 E.U./dL (0.2 - 1.0) 06/07/17 13:25 Ur Leukocyte Esterase MODERATE (NEGATIVE) H 06/07/17 13:25 Urine RBC >100 /hpf (0-5) H 06/07/17 13:25 Urine WBC 2-5 /hpf (0-5) H 06/07/17 13:25 Ur Epithelial Cells OCCASIONAL /lpf (FEW) 06/07/17 13:25 Urine Bacteria FEW /hpf (NONE SEEN) 06/07/17 13:25 Urine Osmolality 776 mOsmol/kg 06/09/17 05:53 Ur Random Sodium 119 mmol/L 06/08/17 18:16 Stool Occult Blood NEGATIVE (NEGATIVE) 06/12/17 17:30 Vancomycin Trough 18.6 ug/mL (10-20) 06/16/17 09:00 Blood Type O POSITIVE 06/09/17 09:30 Antibody Screen NEGATIVE 06/09/17 09:30 - Physical Exam Vitals and I&O: Vital Signs Temp 98.2 F 06/18/17 12:00 Pulse 63 06/18/17 13:50 Resp 12 06/18/17 13:00 BP 89/38 06/18/17 13:50 Pulse Ox 99 06/18/17 13:10 Intake & Output 06/17/17 06/18/17 06/18/17 18:59 06:59 18:59 Intake Total 450 2300 200 Output Total 2670 Balance 450 -370 200 Weight (lbs) 80.739 kg Intake: Intake, IV Amount 450 450 200 Colistimethate 75 mg In 100 100 100 Sodium Chloride 0.9% 100 ml @ 100 mls/hr IV Q12HR [facility] Rx#:[id number] Meropenem 1 gm In Sodium 100 100 100 Chloride 0.9% 100 ml @ 100 mls/hr IV Q12H [facility] Rx #:[id number] Vancomycin HCl 1.25 gm In 250 250 Sodium Chloride 0.9% 250 ml @ 165 mls/hr IV Q12H [facility] Rx#:[id number] Tube Feeding 1200 Other 650 Output: Urine 1320 Stool 1350 Other: Stool Characteristics Liquid Liquid Liquid Active Medications: Current Medications Albuterol/Ipratropium (Duoneb Neb) 3 ml HHN Q4HRT [facility] Stop: 08/07/17 18:59 Last Admin: 06/18/17 11:08 Dose: 3 ml Amlodipine Besylate (Norvasc) 5 mg GT Q12HR [facility] Stop: 08/06/17 20:59 Last Admin: 06/18/17 08:48 Dose: 5 mg Artificial Tears (Artificial Tears Ophth Soln) 2 drop EACH EYE Q6H PRN PRN Reason: eye dryness Stop: 08/06/17 20:54 Last Admin: 06/16/17 09:32 Dose: 2 drop Atorvastatin Calcium (Lipitor) 10 mg GT HS [facility] PRN Reason: Protocol Stop: 08/06/17 20:59 Last Admin: 06/17/17 20:55 Dose: 10 mg Bisacodyl (Dulcolax 10 Mg Supp) 10 mg RC DAILY PRN PRN Reason: Constipation Stop: 08/06/17 19:17 Budesonide (Pulmicort) 0.5 mg HHN BIDRT [facility] Stop: 08/07/17 18:59 Last Admin: 06/18/17 06:59 Dose: 0.5 mg Calcium/Vitamin D (Oscal W/Vitamin D) 1 tab GT DAILY [facility] Stop: 08/07/17 08:59 Last Admin: 06/18/17 08:49 Dose: 1 tab Chlorhexidine Gluconate (Peridex) 15 ml MM 0800,1999 [facility] Stop: 08/08/17 19:59 Last Admin: 06/18/17 08:50 Dose: 15 ml Folic Acid (Folate) 2.5 mg GT DAILY [facility] Stop: 08/07/17 08:59 Last Admin: 06/18/17 08:48 Dose: 2.5 mg Hydralazine HCl (Apresoline) 50 mg GT Q8HR [facility] Stop: 08/06/17 20:59 Last Admin: 06/18/17 13:49 Dose: Not Given Colistimethate Sodium 75 mg/ (Sodium Chloride) 100 mls @ 100 mls/hr IV Q12HR [facility] Stop: 08/10/17 20:59 Last Infusion: 06/18/17 10:28 Dose: Infused Meropenem 1 gm/ Sodium (Chloride) 100 mls @ 100 mls/hr IV Q12H [facility] Stop: 08/13/17 08:59 Last Infusion: 06/18/17 09:47 Dose: Infused Vancomycin HCl 1.25 gm/ Sodium (Chloride) 250 mls @ 165 mls/hr IV Q12H [facility] Stop: 08/15/17 09:59 Last Admin: 06/18/17 10:47 Dose: 165 mls/hr Lactobacillus Rhamnosus (Culturelle) 1 each PO DAILY [facility] Stop: 08/08/17 08:59 Last Admin: 06/18/17 08:49 Dose: 1 each Lactulose (Cephulac) 30 gm GT Q6HR [facility] Stop: 08/08/17 17:59 Last Admin: 06/18/17 05:38 Dose: 30 gm Levetiracetam (Keppra) 1,000 mg GT Q8HR [facility] Stop: 08/06/17 20:59 Last Admin: 06/18/17 05:38 Dose: 1,000 mg Lorazepam (Ativan) 1 mg IVP Q6H PRN; Protocol PRN Reason: Agitation Stop: 08/13/17 23:17 Last Admin: 06/18/17 08:48 Dose: 1 mg Magnesium Hydroxide (Milk Of Magnesia) 30 ml GT HS PRN PRN Reason: Constipation Stop: 08/06/17 19:17 Magnesium Oxide (Mag-Oxide) 400 mg GT DAILY [facility] Stop: 08/07/17 08:59 Last Admin: 06/18/17 08:49 Dose: 400 mg Metoprolol Tartrate (Lopressor) 100 mg GT Q12HR [facility] Stop: 08/06/17 20:59 Last Admin: 06/18/17 08:49 Dose: 100 mg Miscellaneous (Vancomycin Iv Per Pharmacy) 1 ea PRN PRN PRN Reason: PROTOCOL Stop: 08/07/17 07:59 Miscellaneous (Probiotic Screen) 1 ea PRN PRN PRN Reason: PROTOCOL Stop: 08/07/17 10:42 Phytonadione (Mephyton) 10 mg GT DAILY [facility] Stop: 08/07/17 19:59 Last Admin: 06/18/17 09:31 Dose: 10 mg Potassium Chloride (Potassium Chloride Elixir) 20 meq GT TID [facility] Stop: 08/12/17 13:59 Last Admin: 06/18/17 08:50 Dose: 20 meq Propranolol HCl (Inderal) 20 mg GT TID [facility] Stop: 08/06/17 20:59 Last Admin: 06/18/17 13:50 Dose: Not Given Pyridoxine HCl (Vitamin B6) 100 mg GT DAILY [facility] Stop: 08/07/17 08:59 Last Admin: 06/18/17 08:49 Dose: 100 mg Sodium Phosphate (Fleet Enema) 135 ml RC Q48H PRN PRN Reason: IF DULCOLAX IS INEFFECTIVE Stop: 08/06/17 19:17 Thiamine HCl (Vitamin B1) 100 mg GT DAILY [facility] Stop: 08/07/17 08:59 Last Admin: 06/18/17 08:49 Dose: 100 mg Valproate Sodium (Depakene) 500 mg GT TID [facility] PRN Reason: Protocol Stop: 08/06/17 20:59 Last Admin: 06/18/17 08:49 Dose: 500 mg General: Alert, No acute distress HEENT: Atraumatic, PERRLA, EOMI, Mucous membr. moist/pink Neck: Supple, +2 carotid pulse wo bruit Cardiovascular: Regular rate, Normal S1, Normal S2 Lungs: Clear to auscultation, Other Abdomen: Bowel sounds, Soft Extremities: no Edema Neurological: Sensation intact Skin: no Rash Psych/Mental Status: Mood NL - Procedures Procedures: Procedures Procedure Code Date RESPIRATORY VENTILATION, GREATER THAN 96 CONSECUTIVE HOURS [id number] 06/07/17 Assessment/Plan - Problem List Patient Problems: All Active Problems ELEVATED NA+, AND BUN LEVELS (Acute) - Assessment Assessment: s/p respiratory failure pnumonia s/p trch and peg trmors h/o alcoholism h/o sizures - Plan Plan: iv antibiotics vent support continue current plan of care am labs Nutritional Asmnt/Malnutr-PDOC - Dietary Evaluation Malnutrition Findings (Please click <Entered> for more info): Nutritional Asmnt/Malnutrition Start: 06/09/17 11: 00 Text: Status: Complete Freq: Document 06/09/17 13:09 [facility] (Rec: 06/09/17 13:27 [facility] [id number]) Nutritional Asmnt/Malnutrition Patient General Information Nutritional Screening High Risk Screening Diagnosis Sepsis, UTI, right and left lower lobe infiltrate, pneumonia Pertinent Medical Hx/Surgical Hx Alcohol problem, liver disease , cirrhosis of the liver, hepatic comas, seizures, trachestomy, PEG, asthma, COPD Subjective Information Pt is a 52-year-old male from [facility] admitted with chief complaint of shortness of breath and falling oxygen saturation. Pt has tracheostomy to ventilator. Pt was unable to provide nutritional hx. Pt appears well nourished with no signs of muscle or fat depletion. Order to resume tube feeding; bag of Novosource Renal at bedside not yet started. Abdomen Ultrasound 06/09 notes some abdominal ascites. Current Diet Order/ Nutrition Support Novosource Renal at 55 ml/hr = 2640kcals, 120gm protein, 946ml free water Patient / S.O Can't verbalize diet edu Pertinent Medications Oscal with Vitamin D, Cefepime , D5w, Iron, Folate, Culturelle, MagOxide, Mephyton , KCl Elixir, Vitamin B6, Vitamin B1, Depakene, Vancomycin Pertinent Labs (06/09) Na 148H (improving), K 3L, Alkaline Phosphatase 171H, Ammonia 64H, Albumin 3.3L Nutritional Hx/Data Height 1.68 m Height (Calculated Centimeters) 167.6 Current Weight (lbs) 76.657 kg Weight (Calculated Kilograms) 76.7 Weight (Calculated Grams) 04167.1 Usual body Weight (lbs) 168 % Usual Body Weight 100 [place] Body Weight 142 % [place] Body Weight 119 Recent Weight Change No Weight Status Overweight GI Symptoms GI Symptoms Diarrhea Difficult in: Chewing Swallowing Food Allergies No Usual diet at home Nepro 1.8 (237 ml) QID 0900, 1300, 1700, 2100, sugar free ProStat 30 ml Skin Integrity/Comment: Vitor 12. Skin intact. Estimated Nutritional Goals BEE in Kcals: Using Current wt Calories/Kcals/Kg Based on current wt 76.8 kg with consideration of sepsis: Kcals Calculated 1379-9285 kcals/day (27-32 kcals/kg) to prevent wt gain with overwt status Protein: Using Current wt Protein g/kg: Based on current wt 76.8 kg with consideration of sepsis: Protein Calculated 92-115 gm/day (1.2-1.5 gm/kg) Fluid: ml Per MD/DO due to abnormal electrolytes Nutritional Problem 1. Problem Problem Excessive intake from enteral nutrition related to Etiology increased energy intake from calorically dense tube feeding formula as evidenced by Signs/Symptoms: current tube feeding meets 104 % of higher end of estimated calories needs. Malnutrition Alert Protein-Calorie Malnutrition N/A Is there a minimum of two criteria No selected? Query Text:Check all the applicable criteria. A minimum of two criteria are recommended for diagnosis of either severe or non-severe malnutrition. Malnutrition Related to Morbid Obesity Malnutrition related to morbid obesity No Intervention/Recommendation Recommendations by RD Decrease Calorie Intake Comments 1. Recommend decrease tube feeding Novosource Renal at goal rate of 50 ml/hr to provide 2400 kcals, 109 gm protein, and 860 ml free water per day. Monitor renal labs to prioritize protein needs. Expected Outcomes/Goals Expected Outcomes/Goals Provide pt with 100% of estimated nutritional needs. Physician Parameters for PEM Serum Albumin (g/dl) 3.1 - 3.4 (Mild)
--- NOTE | 2017-06-18 16:30 | Diagnostic Imaging Report ---
Upper GI (Limited) HISTORY: Gastrostomy tube placement Water-soluble contrast was instilled through the patient's gastrostomy tube. The exam demonstrates a limited amount of radiopaque contrast within the gastric lumen. Free flow contrast into the small bowel. IMPRESSION: Confirmation of gastrostomy tube within the gastric lumen.
[2017-06-18] MEDS: Atorvastatin Calcium 10 MG TAB GT SCH (20:14)
--- NOTE | 2017-06-18 23:05 | Progress Notes ---
DATE: 06/18/2017 PROBLEM LIST: 1. Persistent respiratory failure. 2. Multidrug-resistant organisms, improving. Persistent left sided effusion, better. 3. Significant hepatic encephalopathy with low ammonia levels. SYMPTOMS: The patient is looking side to side, but no other meaningful communication could be done and the patient is not in any distress. PHYSICAL EXAMINATION: VITAL SIGNS: The patient's recorded vitals are: Temperature is 98.2, blood pressure 116/60, saturation 99% on 30% of oxygen. NECK: Veins not visualized. CHEST: Shows mild diminished air entry at the bases, otherwise unremarkable. HEART: Regular. ABDOMEN: Soft, nontender. LABORATORY DATA: White count is 3.9, hemoglobin 8.5. Platelet is 77 and electrolytes are okay with sugars earlier on the borderline high side. ASSESSMENT: The patient is clinically stable, unchanged. PLANS AND SUGGESTIONS: Continue current treatment and antibiotics. Continue current respiratory care, etc. and go from there. JOB# [id number]
[2017-06-19] MEDS: Lactulose 10 Gm/15 mL 30mL UDC GT SCH ×4 (00:36→18:12)
[2017-06-19] MEDS: Albuterol/Ipratropium Neb 3 ML AERS HHN SCH ×6 (03:03→23:18)
[2017-06-19] MEDS: Levetiracetam 500 mg/5mL 5mL UDC GT SCH ×3 (05:13→20:11)
[2017-06-19] MEDS: Budesonide 0.5 Mg/2 mL Ud HHN SCH ×2 (07:07→19:36)
--- NOTE | 2017-06-19 07:12 | Consultation ---
DATE OF CONSULTATION: 06/18/2017 CONSULTING PHYSICIAN: Dr. Ren. REASON FOR CONSULTATION: Malpositioned G-tube. HISTORY OF PRESENT ILLNESS: The patient is a 52-year-old male who has been admitted to the hospital now since 06/07/2017 with respiratory failure. The patient at that time had come from an assisted living facility where he already had a trach and PEG in place. Over the past 10 days, the patient has required treatment for pneumonia and has been in the ICU here at [facility]. During attempted flushing of his G-tube this morning, it was noted by nursing staff that the G-tube actually externalized itself completely. At that point, the nursing staff placed a new 18-Amharic G-tube into the already formed gastrocutaneous fistula and blew up the internal balloon. A Gastrografin abdominal plain film was ordered and GI consult was placed. Since then, the KUB has returned and it is noted that the G-tube is in the correct place with the internalized portion within the lumen of the stomach. At the current time, the patient remains ventilator dependent in the ICU and is undergoing treatment for respiratory failure. PAST MEDICAL HISTORY: History of alcoholism, suspected liver cirrhosis, history of seizures, history of COPD. FAMILY HISTORY: Unable to be obtained given the patient's mental status. FAMILY HISTORY: Noncontributory. SOCIAL HISTORY: The patient has a history of alcoholism. There is no history of tobacco use. ALLERGIES: No known drug allergies. REVIEW OF SYSTEMS: Unable to be performed given the patient's poor mental status. CURRENT MEDICATIONS: Albuterol, Norvasc, Lipitor, Dulcolax, Pulmicort, Peridex, folic acid, hydralazine, lactobacillus, lactulose, Keppra, Ativan, milk of magnesia, magnesium oxide, Lopressor, vancomycin, vitamin K, vitamin B6, vitamin B1, valproate. PHYSICAL EXAMINATION: VITAL SIGNS: Show blood pressure 89/38, pulse rate of 63, respiratory rate is not recorded. Oxygen saturation is 98% on ventilator. GENERAL: The patient is lying flat in bed, alert and oriented x 0, in no apparent distress. HEENT: No obvious scleral icterus. Pupils are equal and reactive. Moist mucous membranes. NECK: No obvious JVD or thyromegaly or lymphadenopathy. CHEST: Mechanical breath sounds are noted. CARDIOVASCULAR: S1, S2 are present. No extra sounds. ABDOMEN: Soft, nontender. There is a G-tube that has a bandage clean, dry and intact. No guarding, no rebound. EXTREMITIES: The arms are within constraints. No obvious pitting edema. LABORATORY DATA: Show white count 5.2, hemoglobin 9.4, platelet count 34. Sodium 143, potassium 3.7, BUN 19, creatinine 0.5, AST 28, ALT 13, total bilirubin 1. Ammonia level 88, alkaline phosphatase 184. IMAGING STUDIES: Upper GI series performed on 06/18/2017 shows water soluble contrast instilled through the patient's gastrostomy tube, limited amount of radiopaque contrast within the gastric lumen, and free flowing contrast into the small bowel. IMPRESSION: This is a 52-year-old man with a history of alcoholism, possible liver cirrhosis, who is ventilator dependent, has a tracheostomy and PEG tube now recovering from a pneumonia in the ICU. 1. G-tube malfunction. 2. History of liver cirrhosis and alcoholism. 3. Pneumonia. 4. Tracheostomy dependent and ventilator dependent. DISCUSSION: The G-tube was pulled earlier this morning, but quickly replaced by the nursing staff with the internal balloon blown up. Gastrografin abdominal plain film now demonstrates that this is in the correct position and can be used for feeds. PLAN: Can use PEG tube immediately for feeds and medications. Other care as per consultants and primary attending. Thank you for allowing me to participate in the care of this patient. Please call with any further questions. JOB# [id number]
[2017-06-19] MEDS: Potassium Chloride Elixir 20 mEq /15 mL UDC GT SCH ×3 (08:20→20:12)
[2017-06-19] MEDS: Calcium Carb/Vit D 500 mg/200 U Tab GT SCH (08:20)
[2017-06-19] MEDS: Lactobacillus Rhamnosus 10 Billion CFU Capsule PO SCH (08:20)
[2017-06-19] MEDS: Chlorhexidine Gluconate 0.12% 15mL Mouthwash MM SCH ×2 (08:41→20:12)
--- NOTE | 2017-06-19 10:23 | General Progress Note ---
Subjective - Review of Systems Events since last encounter: no distress patient on vent , awake Subjective: on vent, afebrile nad Objective - Results Result Diagrams: 06/18/17 04:59 06/18/17 04:59 Recent Labs: Laboratory Last Values WBC 3.9 Th/cmm (4.8-10.8) L 06/18/17 04:59 RBC 2.69 Mil/cmm (4.30-5.70) L 06/18/17 04:59 Hgb 8.5 gm/dL (13.2-17.3) L 06/18/17 04:59 Hct 25.6 % (39.0-49.0) L 06/18/17 04:59 MCV 95.3 fl (80-99) 06/18/17 04:59 MCH 31.7 pg (26.0-30.0) H 06/18/17 04:59 MCHC Differential 33.3 pg (28.0-36.0) 06/18/17 04:59 RDW 15.6 % (11.5-20.0) 06/18/17 04:59 Plt Count 77 Th/cmm (150-400) L 06/18/17 04:59 MPV 9.7 fl 06/18/17 04:59 Neutrophils % 50.2 % (40.0-80.0) 06/15/17 04:30 Band Neutrophils % 1 % (0-10) 06/18/17 04:59 Lymphocytes % 22.2 % (20.0-50.0) 06/15/17 04:30 Monocytes % 24.6 % (2.0-10.0) H 06/15/17 04:30 Eosinophils % 2.9 % (0.0-5.0) 06/15/17 04:30 Basophils % 0.3 % (0.0-2.0) 06/10/17 04:40 Neutrophils (Manual) 47 % (40-80) 06/18/17 04:59 Lymphocytes 35 % (20-50) 06/18/17 04:59 Monocytes 16 % (2-10) H 06/18/17 04:59 Eosinophils 1 % (0-5) 06/18/17 04:59 Basophils 0 % (0-3) 06/14/17 05:00 Metamyelocytes 2 % (0-0) H 06/13/17 07:20 Myelocytes 1 % 06/13/17 07:20 Nucleated RBCs 1.0 % (0-0) H 06/08/17 04:59 Platelet Estimate DECREASED PLATELETS (NORMAL) 06/18/17 04:59 Platelet Morphology PLATELET CLUMPS SEEN (NORMAL) 06/18/17 04:59 Polychromasia 1+ 06/18/17 04:59 Anisocytosis 1+ 06/17/17 07:00 RBC Morph Micro Appear ABNORMAL (NORMAL) 06/18/17 04:59 Specimen Source ARTERIAL 06/10/17 08:43 Sample Site Left Radial 06/10/17 08:43 pH 7.46 (7.35-7.45) H 06/10/17 08:43 pCO2 36.0 mmHg (35.0-45.0) 06/10/17 08:43 pO2 92.0 mmHg (80.0-100.0) 06/10/17 08:43 HCO3 26.4 mEq/L (20.0-26.0) H 06/10/17 08:43 Base Excess 1.9 mEq/L (-3.0-3.0) 06/10/17 08:43 O2 Saturation 98.0 % (92.0-100.0) 06/10/17 08:43 Jose L Test POSITIVE 06/10/17 08:43 Vent Rate 12 06/10/17 08:43 Inspired O2 40 06/10/17 08:43 Tidal Volume 500 06/10/17 08:43 PEEP 5 06/10/17 08:43 Pressure (ins/psv/peep) N/A 06/10/17 08:43 Critical Value ASURABH 06/10/17 08:43 Sodium 143 mEq/L (136-145) 06/18/17 04:59 Potassium 3.7 mEq/L (3.5-5.1) 06/18/17 04:59 Chloride 114 mEq/L (98-107) H 06/18/17 04:59 Carbon Dioxide 26.4 mEq/L (21.0-31.0) 06/18/17 04:59 Anion Gap 6.3 (7.0-16.0) L 06/18/17 04:59 BUN 19 mg/dL (7-25) 06/18/17 04:59 Creatinine 0.5 mg/dL (0.7-1.3) L 06/18/17 04:59 Est GFR ( Amer) > 60.0 ml/min (>90) 06/18/17 04:59 Est GFR (Non-Af Amer) > 60.0 ml/min 06/18/17 04:59 BUN/Creatinine Ratio 38.0 06/18/17 04:59 Glucose 106 mg/dL (70-105) H 06/18/17 04:59 Plasma/Ser Osmolality 313 mOsmol/kg (275-295) H 06/09/17 05:07 Whole Bld Lactic Acid 1.51 mmol/L (0.60-1.99) 06/08/17 04:59 Calcium 10.0 mg/dL (8.6-10.3) 06/18/17 04:59 Phosphorus 2.7 mg/dL (2.5-5.0) 06/08/17 04:59 Magnesium 1.6 mg/dL (1.9-2.7) L 06/14/17 05:00 Iron 71 ug/dL (38-169) 06/08/17 04:59 TIBC 173 ug/dL (250-450) L 06/08/17 04:59 Iron Saturation 41 % (15-55) 06/08/17 04:59 Unsaturated IBC 102 ug/dL (111-343) L 06/08/17 04:59 Ferritin 303 ng/mL (30-400) 06/08/17 04:59 Total Bilirubin 1.0 mg/dL (0.3-1.0) 06/16/17 04:40 Direct Bilirubin 0.29 mg/dL (0.0-0.2) H 06/16/17 04:40 AST 28 U/L (13-39) 06/16/17 04:40 ALT 13 U/L (7-52) 06/16/17 04:40 Alkaline Phosphatase 184 U/L (34-104) H 06/16/17 04:40 Ammonia 84 umol/L (16-53) H 06/17/17 07:00 Troponin I 0.01 ng/mL (0.01-0.05) 06/07/17 13:28 B-Natriuretic Peptide 91.8 pg/mL (5.0-100.0) 06/07/17 13:28 Total Protein 7.8 gm/dL (6.0-8.3) 06/16/17 04:40 Albumin 2.6 gm/dL (4.2-5.5) L 06/16/17 04:40 Globulin 5.2 gm/dL 06/16/17 04:40 Albumin/Globulin Ratio 0.5 (1.0-1.8) L 06/16/17 04:40 Vitamin B12 >1999 pg/mL (211-946) H 06/08/17 04:59 Folic Acid >20.0 ng/mL (>3.0) 06/08/17 04:59 Urine Source RANDOM 06/07/17 13:25 Urine Color NISA 06/07/17 13:25 Urine Clarity CLOUDY (CLEAR) 06/07/17 13:25 Urine pH 5.5 (4.6 - 8.0) 06/07/17 13:25 Ur Specific [place] 1.020 (1.005-1.030) 06/07/17 13:25 Urine Protein >=300 mg/dL (NEGATIVE) 06/07/17 13:25 Urine Glucose (UA) NEGATIVE mg/dL (NEGATIVE) 06/07/17 13:25 Urine Ketones 15 mg/dL (NEGATIVE) H 06/07/17 13:25 Urine Blood LARGE (NEGATIVE) H 06/07/17 13:25 Urine Nitrate POSITIVE (NEGATIVE) H 06/07/17 13:25 Urine Bilirubin MODERATE (NEGATIVE) H 06/07/17 13:25 Urine Urobilinogen 2.0 E.U./dL (0.2 - 1.0) 06/07/17 13:25 Ur Leukocyte Esterase MODERATE (NEGATIVE) H 06/07/17 13:25 Urine RBC >100 /hpf (0-5) H 06/07/17 13:25 Urine WBC 2-5 /hpf (0-5) H 06/07/17 13:25 Ur Epithelial Cells OCCASIONAL /lpf (FEW) 06/07/17 13:25 Urine Bacteria FEW /hpf (NONE SEEN) 06/07/17 13:25 Urine Osmolality 776 mOsmol/kg 06/09/17 05:53 Ur Random Sodium 119 mmol/L 06/08/17 18:16 Stool Occult Blood NEGATIVE (NEGATIVE) 06/12/17 17:30 Vancomycin Trough 18.6 ug/mL (10-20) 06/16/17 09:00 Blood Type O POSITIVE 06/09/17 09:30 Antibody Screen NEGATIVE 06/09/17 09:30 - Physical Exam Vitals and I&O: Vital Signs Temp 97.5 F 06/19/17 10:00 Pulse 72 06/19/17 10:00 Resp 18 06/19/17 10:00 BP 112/59 06/19/17 10:00 Pulse Ox 100 06/19/17 10:00 Intake & Output 06/18/17 06/19/17 06/19/17 18:59 06:59 18:59 Intake Total 450 1100 350 Output Total 400 1850 Balance 50 -750 350 Weight (lbs) 80.739 kg 80.739 kg Intake: Intake, IV Amount 450 200 350 Colistimethate 75 mg In 100 100 Sodium Chloride 0.9% 100 ml @ 100 mls/hr IV Q12HR [facility] Rx#:[id number] Meropenem 1 gm In Sodium 100 100 100 Chloride 0.9% 100 ml @ 100 mls/hr IV Q12H [facility] Rx #:[id number] Vancomycin HCl 1.25 gm In 250 250 Sodium Chloride 0.9% 250 ml @ 165 mls/hr IV Q12H [facility] Rx#:[id number] Oral 0 Tube Feeding 650 Other 250 Output: Urine 1150 Stool 400 700 Other: # Voids 1 # Bowel Movements 1 Stool Characteristics Liquid Liquid Liquid Active Medications: Current Medications Albuterol/Ipratropium (Duoneb Neb) 3 ml HHN Q4HRT [facility] Stop: 08/07/17 18:59 Last Admin: 06/19/17 07:07 Dose: 3 ml Amlodipine Besylate (Norvasc) 5 mg GT Q12HR [facility] Stop: 08/06/17 20:59 Last Admin: 06/19/17 08:40 Dose: 5 mg Artificial Tears (Artificial Tears Ophth Soln) 2 drop EACH EYE Q6H PRN PRN Reason: eye dryness Stop: 08/06/17 20:54 Last Admin: 06/16/17 09:32 Dose: 2 drop Atorvastatin Calcium (Lipitor) 10 mg GT HS [place] PRN Reason: Protocol Stop: 08/06/17 20:59 Last Admin: 06/18/17 20:14 Dose: 10 mg Bisacodyl (Dulcolax 10 Mg Supp) 10 mg RC DAILY PRN PRN Reason: Constipation Stop: 08/06/17 19:17 Budesonide (Pulmicort) 0.5 mg HHN BIDRT [place] Stop: 08/07/17 18:59 Last Admin: 06/19/17 07:07 Dose: 0.5 mg Calcium/Vitamin D (Oscal W/Vitamin D) 1 tab GT DAILY [place] Stop: 08/07/17 08:59 Last Admin: 06/19/17 08:20 Dose: 1 tab Chlorhexidine Gluconate (Peridex) 15 ml MM 0800,1999 [place] Stop: 08/08/17 19:59 Last Admin: 06/19/17 08:41 Dose: 15 ml Folic Acid (Folate) 2.5 mg GT DAILY [place] Stop: 08/07/17 08:59 Last Admin: 06/19/17 08:20 Dose: 2.5 mg Hydralazine HCl (Apresoline) 50 mg GT Q8HR [place] Stop: 08/06/17 20:59 Last Admin: 06/19/17 05:13 Dose: 50 mg Meropenem 1 gm/ Sodium (Chloride) 100 mls @ 100 mls/hr IV Q12H [place] Stop: 08/13/17 08:59 Last Infusion: 06/19/17 09:21 Dose: Infused Vancomycin HCl 1.25 gm/ Sodium (Chloride) 250 mls @ 165 mls/hr IV Q12H [place] Stop: 08/15/17 09:59 Last Infusion: 06/19/17 07:01 Dose: Infused Lactobacillus Rhamnosus (Culturelle) 1 each PO DAILY [place] Stop: 08/08/17 08:59 Last Admin: 06/19/17 08:20 Dose: 1 each Lactulose (Cephulac) 30 gm GT Q6HR [place] Stop: 08/08/17 17:59 Last Admin: 06/19/17 05:13 Dose: 30 gm Levetiracetam (Keppra) 1,000 mg GT Q8HR [place] Stop: 08/06/17 20:59 Last Admin: 06/19/17 05:13 Dose: 1,000 mg Lorazepam (Ativan) 1 mg IVP Q6H PRN; Protocol PRN Reason: Agitation Stop: 08/13/17 23:17 Last Admin: 06/19/17 08:55 Dose: 1 mg Magnesium Hydroxide (Milk Of Magnesia) 30 ml GT HS PRN PRN Reason: Constipation Stop: 08/06/17 19:17 Magnesium Oxide (Mag-Oxide) 400 mg GT DAILY [facility] Stop: 08/07/17 08:59 Last Admin: 06/19/17 08:20 Dose: 400 mg Metoprolol Tartrate (Lopressor) 100 mg GT Q12HR [place] Stop: 08/06/17 20:59 Last Admin: 06/19/17 08:40 Dose: 100 mg Miscellaneous (Vancomycin Iv Per Pharmacy) 1 ea PRN PRN PRN Reason: PROTOCOL Stop: 08/07/17 07:59 Miscellaneous (Probiotic Screen) 1 ea PRN PRN PRN Reason: PROTOCOL Stop: 08/07/17 10:42 Phytonadione (Mephyton) 10 mg GT DAILY [facility] Stop: 08/07/17 19:59 Last Admin: 06/19/17 08:20 Dose: 10 mg Potassium Chloride (Potassium Chloride Elixir) 20 meq GT TID [facility] Stop: 08/12/17 13:59 Last Admin: 06/19/17 08:20 Dose: 20 meq Propranolol HCl (Inderal) 20 mg GT TID [facility] Stop: 08/06/17 20:59 Last Admin: 06/19/17 08:40 Dose: 20 mg Pyridoxine HCl (Vitamin B6) 100 mg GT DAILY [facility] Stop: 08/07/17 08:59 Last Admin: 06/19/17 08:20 Dose: 100 mg Sodium Phosphate (Fleet Enema) 135 ml RC Q48H PRN PRN Reason: IF DULCOLAX IS INEFFECTIVE Stop: 08/06/17 19:17 Thiamine HCl (Vitamin B1) 100 mg GT DAILY [facility] Stop: 08/07/17 08:59 Last Admin: 06/19/17 08:20 Dose: 100 mg Valproate Sodium (Depakene) 500 mg GT TID [place] PRN Reason: Protocol Stop: 08/06/17 20:59 Last Admin: 06/19/17 08:20 Dose: 500 mg General: Alert, No acute distress HEENT: Atraumatic, PERRLA, EOMI, Mucous membr. moist/pink Neck: Supple, +2 carotid pulse wo bruit Cardiovascular: Regular rate, Normal S1, Normal S2 Lungs: Clear to auscultation, Other Abdomen: Bowel sounds, Soft Extremities: no Edema Neurological: Sensation intact Skin: no Rash Psych/Mental Status: Mood NL - Procedures Procedures: Procedures Procedure Code Date RESPIRATORY VENTILATION, GREATER THAN 96 CONSECUTIVE HOURS [id number] 06/07/17 Assessment/Plan - Problem List Patient Problems: All Active Problems ELEVATED NA+, AND BUN LEVELS (Acute) - Assessment Assessment: s/p respiratory failure pnumonia s/p trch and peg trmors h/o alcoholism h/o sizures - Plan Plan: iv antibiotics vent support continue current plan of care am labs Nutritional Asmnt/Malnutr-PDOC - Dietary Evaluation Malnutrition Findings (Please click <Entered> for more info): Nutritional Asmnt/Malnutrition Start: 06/09/17 11: 00 Text: Status: Complete Freq: Document 06/09/17 13:09 [facility] (Rec: 06/09/17 13:27 [facility] [id number]) Nutritional Asmnt/Malnutrition Patient General Information Nutritional Screening High Risk Screening Diagnosis Sepsis, UTI, right and left lower lobe infiltrate, pneumonia Pertinent Medical Hx/Surgical Hx Alcohol problem, liver disease , cirrhosis of the liver, hepatic comas, seizures, trachestomy, PEG, asthma, COPD Subjective Information Pt is a 52-year-old male from [facility] admitted with chief complaint of shortness of breath and falling oxygen saturation. Pt has tracheostomy to ventilator. Pt was unable to provide nutritional hx. Pt appears well nourished with no signs of muscle or fat depletion. Order to resume tube feeding; bag of Novosource Renal at bedside not yet started. Abdomen Ultrasound 06/09 notes some abdominal ascites. Current Diet Order/ Nutrition Support Novosource Renal at 55 ml/hr = 2640kcals, 120gm protein, 946ml free water Patient / S.O Can't verbalize diet edu Pertinent Medications Oscal with Vitamin D, Cefepime , D5w, Iron, Folate, Culturelle, MagOxide, Mephyton , KCl Elixir, Vitamin B6, Vitamin B1, Depakene, Vancomycin Pertinent Labs (06/09) Na 148H (improving), K 3L, Alkaline Phosphatase 171H, Ammonia 64H, Albumin 3.3L Nutritional Hx/Data Height 1.68 m Height (Calculated Centimeters) 167.6 Current Weight (lbs) 76.657 kg Weight (Calculated Kilograms) 76.7 Weight (Calculated Grams) 35616.1 Usual body Weight (lbs) 168 % Usual Body Weight 100 [place] Body Weight 142 % [place] Body Weight 119 Recent Weight Change No Weight Status Overweight GI Symptoms GI Symptoms Diarrhea Difficult in: Chewing Swallowing Food Allergies No Usual diet at home Nepro 1.8 (237 ml) QID 0900, 1300, 1700, 2100, sugar free ProStat 30 ml Skin Integrity/Comment: Vitor 12. Skin intact. Estimated Nutritional Goals BEE in Kcals: Using Current wt Calories/Kcals/Kg Based on current wt 76.8 kg with consideration of sepsis: Kcals Calculated 2328-8690 kcals/day (27-32 kcals/kg) to prevent wt gain with overwt status Protein: Using Current wt Protein g/kg: Based on current wt 76.8 kg with consideration of sepsis: Protein Calculated 92-115 gm/day (1.2-1.5 gm/kg) Fluid: ml Per MD/DO due to abnormal electrolytes Nutritional Problem 1. Problem Problem Excessive intake from enteral nutrition related to Etiology increased energy intake from calorically dense tube feeding formula as evidenced by Signs/Symptoms: current tube feeding meets 104 % of higher end of estimated calories needs. Malnutrition Alert Protein-Calorie Malnutrition N/A Is there a minimum of two criteria No selected? Query Text:Check all the applicable criteria. A minimum of two criteria are recommended for diagnosis of either severe or non-severe malnutrition. Malnutrition Related to Morbid Obesity Malnutrition related to morbid obesity No Intervention/Recommendation Recommendations by RD Decrease Calorie Intake Comments 1. Recommend decrease tube feeding Novosource Renal at goal rate of 50 ml/hr to provide 2400 kcals, 109 gm protein, and 860 ml free water per day. Monitor renal labs to prioritize protein needs. Expected Outcomes/Goals Expected Outcomes/Goals Provide pt with 100% of estimated nutritional needs. Physician Parameters for PEM Serum Albumin (g/dl) 3.1 - 3.4 (Mild)
[2017-06-19 10:25] LABS: HEMATOCRIT 27.3 % (39.0-49.0); HEMOGLOBIN 9.3 gm/dL (13.2-17.3); MEAN CELL VOLUME 95.2 fl (80-99); MEAN CORPUSCULAR HEMOGLOBIN 32.5 pg (26.0-30.0); MEAN CORPUSCULAR HGB CONC 34.2 pg (28.0-36.0); MEAN PLATELET VOLUME 9.7 fl; PLATELET COUNT 88 Th/cmm (150-400); RED BLOOD COUNT 2.87 Mil/cmm (4.30-5.70); RED CELL DISTRIBUTION WIDTH 15.5 % (11.5-20.0)
[2017-06-19 10:32] LABS: WHITE BLOOD COUNT 5.7 Th/cmm (4.8-10.8)
[2017-06-19 11:06] LABS: BAND NEUTROPHILE 4 % (0-10); EOSINOPHIL 2 % (0-5); NEUTROPHILS 54 % (40-80); TOTAL CELLS COUNTED 100
[2017-06-19 11:07] LABS: ANISOCYTOSIS 1+; PLATELET ESTIMATE DECREASED PLATELETS (NORMAL); PLATELET MORPHOLOGY PLATELET CLUMPS SEEN (NORMAL)
--- NOTE | 2017-06-19 17:26 | General Progress Note ---
Subjective - Review of Systems Service Date: 06/19/17 Subjective: sleeping, arousable, on vent Objective - Results Result Diagrams: 06/19/17 10:00 06/18/17 04:59 Recent Labs: Laboratory Last Values WBC 5.7 Th/cmm (4.8-10.8) D 06/19/17 10:00 RBC 2.87 Mil/cmm (4.30-5.70) L 06/19/17 10:00 Hgb 9.3 gm/dL (13.2-17.3) L 06/19/17 10:00 Hct 27.3 % (39.0-49.0) L 06/19/17 10:00 MCV 95.2 fl (80-99) 06/19/17 10:00 MCH 32.5 pg (26.0-30.0) H 06/19/17 10:00 MCHC Differential 34.2 pg (28.0-36.0) 06/19/17 10:00 RDW 15.5 % (11.5-20.0) 06/19/17 10:00 Plt Count 88 Th/cmm (150-400) L 06/19/17 10:00 MPV 9.7 fl 06/19/17 10:00 Neutrophils % 50.2 % (40.0-80.0) 06/15/17 04:30 Band Neutrophils % 4 % (0-10) 06/19/17 10:00 Lymphocytes % 22.2 % (20.0-50.0) 06/15/17 04:30 Monocytes % 24.6 % (2.0-10.0) H 06/15/17 04:30 Eosinophils % 2.9 % (0.0-5.0) 06/15/17 04:30 Basophils % 0.3 % (0.0-2.0) 06/10/17 04:40 Neutrophils (Manual) 54 % (40-80) 06/19/17 10:00 Lymphocytes 16 % (20-50) L 06/19/17 10:00 Monocytes 24 % (2-10) H 06/19/17 10:00 Eosinophils 2 % (0-5) 06/19/17 10:00 Basophils 0 % (0-3) 06/14/17 05:00 Metamyelocytes 2 % (0-0) H 06/13/17 07:20 Myelocytes 1 % 06/13/17 07:20 Nucleated RBCs 1.0 % (0-0) H 06/08/17 04:59 Platelet Estimate DECREASED PLATELETS (NORMAL) 06/19/17 10:00 Platelet Morphology PLATELET CLUMPS SEEN (NORMAL) 06/19/17 10:00 Polychromasia 1+ 06/18/17 04:59 Anisocytosis 1+ 06/19/17 10:00 RBC Morph Micro Appear ABNORMAL (NORMAL) 06/19/17 10:00 Specimen Source ARTERIAL 06/10/17 08:43 Sample Site Left Radial 06/10/17 08:43 pH 7.46 (7.35-7.45) H 06/10/17 08:43 pCO2 36.0 mmHg (35.0-45.0) 06/10/17 08:43 pO2 92.0 mmHg (80.0-100.0) 06/10/17 08:43 HCO3 26.4 mEq/L (20.0-26.0) H 06/10/17 08:43 Base Excess 1.9 mEq/L (-3.0-3.0) 06/10/17 08:43 O2 Saturation 98.0 % (92.0-100.0) 06/10/17 08:43 Jose L Test POSITIVE 06/10/17 08:43 Vent Rate 12 06/10/17 08:43 Inspired O2 40 06/10/17 08:43 Tidal Volume 500 06/10/17 08:43 PEEP 5 06/10/17 08:43 Pressure (ins/psv/peep) N/A 06/10/17 08:43 Critical Value SAURABH 06/10/17 08:43 Sodium 143 mEq/L (136-145) 06/18/17 04:59 Potassium 3.7 mEq/L (3.5-5.1) 06/18/17 04:59 Chloride 114 mEq/L (98-107) H 06/18/17 04:59 Carbon Dioxide 26.4 mEq/L (21.0-31.0) 06/18/17 04:59 Anion Gap 6.3 (7.0-16.0) L 06/18/17 04:59 BUN 19 mg/dL (7-25) 06/18/17 04:59 Creatinine 0.5 mg/dL (0.7-1.3) L 06/18/17 04:59 Est GFR ( Amer) > 60.0 ml/min (>90) 06/18/17 04:59 Est GFR (Non-Af Amer) > 60.0 ml/min 06/18/17 04:59 BUN/Creatinine Ratio 38.0 06/18/17 04:59 Glucose 106 mg/dL (70-105) H 06/18/17 04:59 Plasma/Ser Osmolality 313 mOsmol/kg (275-295) H 06/09/17 05:07 Whole Bld Lactic Acid 1.51 mmol/L (0.60-1.99) 06/08/17 04:59 Calcium 10.0 mg/dL (8.6-10.3) 06/18/17 04:59 Phosphorus 2.7 mg/dL (2.5-5.0) 06/08/17 04:59 Magnesium 1.6 mg/dL (1.9-2.7) L 06/14/17 05:00 Iron 71 ug/dL (38-169) 06/08/17 04:59 TIBC 173 ug/dL (250-450) L 06/08/17 04:59 Iron Saturation 41 % (15-55) 06/08/17 04:59 Unsaturated IBC 102 ug/dL (111-343) L 06/08/17 04:59 Ferritin 303 ng/mL (30-400) 06/08/17 04:59 Total Bilirubin 1.0 mg/dL (0.3-1.0) 06/16/17 04:40 Direct Bilirubin 0.29 mg/dL (0.0-0.2) H 06/16/17 04:40 AST 28 U/L (13-39) 06/16/17 04:40 ALT 13 U/L (7-52) 06/16/17 04:40 Alkaline Phosphatase 184 U/L (34-104) H 06/16/17 04:40 Ammonia 84 umol/L (16-53) H 06/17/17 07:00 Troponin I 0.01 ng/mL (0.01-0.05) 06/07/17 13:28 B-Natriuretic Peptide 91.8 pg/mL (5.0-100.0) 06/07/17 13:28 Total Protein 7.8 gm/dL (6.0-8.3) 06/16/17 04:40 Albumin 2.6 gm/dL (4.2-5.5) L 06/16/17 04:40 Globulin 5.2 gm/dL 06/16/17 04:40 Albumin/Globulin Ratio 0.5 (1.0-1.8) L 06/16/17 04:40 Vitamin B12 >1999 pg/mL (211-946) H 06/08/17 04:59 Folic Acid >20.0 ng/mL (>3.0) 06/08/17 04:59 Urine Source RANDOM 06/07/17 13:25 Urine Color NISA 06/07/17 13:25 Urine Clarity CLOUDY (CLEAR) 06/07/17 13:25 Urine pH 5.5 (4.6 - 8.0) 06/07/17 13:25 Ur Specific [place] 1.020 (1.005-1.030) 06/07/17 13:25 Urine Protein >=300 mg/dL (NEGATIVE) 06/07/17 13:25 Urine Glucose (UA) NEGATIVE mg/dL (NEGATIVE) 06/07/17 13:25 Urine Ketones 15 mg/dL (NEGATIVE) H 06/07/17 13:25 Urine Blood LARGE (NEGATIVE) H 06/07/17 13:25 Urine Nitrate POSITIVE (NEGATIVE) H 06/07/17 13:25 Urine Bilirubin MODERATE (NEGATIVE) H 06/07/17 13:25 Urine Urobilinogen 2.0 E.U./dL (0.2 - 1.0) 06/07/17 13:25 Ur Leukocyte Esterase MODERATE (NEGATIVE) H 06/07/17 13:25 Urine RBC >100 /hpf (0-5) H 06/07/17 13:25 Urine WBC 2-5 /hpf (0-5) H 06/07/17 13:25 Ur Epithelial Cells OCCASIONAL /lpf (FEW) 06/07/17 13:25 Urine Bacteria FEW /hpf (NONE SEEN) 06/07/17 13:25 Urine Osmolality 776 mOsmol/kg 06/09/17 05:53 Ur Random Sodium 119 mmol/L 06/08/17 18:16 Stool Occult Blood NEGATIVE (NEGATIVE) 06/12/17 17:30 Vancomycin Trough 18.6 ug/mL (10-20) 06/16/17 09:00 Blood Type O POSITIVE 06/09/17 09:30 Antibody Screen NEGATIVE 06/09/17 09:30 - Physical Exam Vitals and I&O: Vital Signs Temp 97.5 F 06/19/17 16:00 Pulse 66 06/19/17 17:22 Resp 17 06/19/17 15:00 BP 108/64 06/19/17 16:00 Pulse Ox 99 06/19/17 17:22 Intake & Output 06/18/17 06/19/17 06/19/17 18:59 06:59 18:59 Intake Total 450 1100 700 Output Total 400 1850 Balance 50 -750 700 Weight (lbs) 80.739 kg 80.739 kg Intake: Intake, IV Amount 450 200 700 Colistimethate 75 mg In 100 100 Sodium Chloride 0.9% 100 ml @ 100 mls/hr IV Q12HR [facility] Rx#:[id number] Meropenem 1 gm In Sodium 100 100 100 Chloride 0.9% 100 ml @ 100 mls/hr IV Q12H [facility] Rx #:[id number] Vancomycin HCl 1.25 gm In 250 500 Sodium Chloride 0.9% 250 ml @ 165 mls/hr IV Q12H [facility] Rx#:[id number] Oral 0 Tube Feeding 650 Other 250 Output: Urine 1150 Stool 400 700 Other: # Voids 1 # Bowel Movements 1 Stool Characteristics Liquid Liquid Liquid Active Medications: Current Medications Albuterol/Ipratropium (Duoneb Neb) 3 ml HHN Q4HRT [facility] Stop: 08/07/17 18:59 Last Admin: 06/19/17 15:59 Dose: 3 ml Amlodipine Besylate (Norvasc) 5 mg GT Q12HR [place] Stop: 08/06/17 20:59 Last Admin: 06/19/17 08:40 Dose: 5 mg Artificial Tears (Artificial Tears Ophth Soln) 2 drop EACH EYE Q6H PRN PRN Reason: eye dryness Stop: 08/06/17 20:54 Last Admin: 06/16/17 09:32 Dose: 2 drop Atorvastatin Calcium (Lipitor) 10 mg GT HS [place] PRN Reason: Protocol Stop: 08/06/17 20:59 Last Admin: 06/18/17 20:14 Dose: 10 mg Bisacodyl (Dulcolax 10 Mg Supp) 10 mg RC DAILY PRN PRN Reason: Constipation Stop: 08/06/17 19:17 Budesonide (Pulmicort) 0.5 mg HHN BIDRT [place] Stop: 08/07/17 18:59 Last Admin: 06/19/17 07:07 Dose: 0.5 mg Calcium/Vitamin D (Oscal W/Vitamin D) 1 tab GT DAILY [place] Stop: 08/07/17 08:59 Last Admin: 06/19/17 08:20 Dose: 1 tab Chlorhexidine Gluconate (Peridex) 15 ml MM 0800,1999 [place] Stop: 08/08/17 19:59 Last Admin: 06/19/17 08:41 Dose: 15 ml Folic Acid (Folate) 2.5 mg GT DAILY [place] Stop: 08/07/17 08:59 Last Admin: 06/19/17 08:20 Dose: 2.5 mg Hydralazine HCl (Apresoline) 50 mg GT Q8HR [place] Stop: 08/06/17 20:59 Last Admin: 06/19/17 13:06 Dose: 50 mg Meropenem 1 gm/ Sodium (Chloride) 100 mls @ 100 mls/hr IV Q12H [facility] Stop: 08/13/17 08:59 Last Infusion: 06/19/17 09:21 Dose: Infused Vancomycin HCl 1.25 gm/ Sodium (Chloride) 250 mls @ 165 mls/hr IV Q12H [facility] Stop: 08/15/17 09:59 Last Infusion: 06/19/17 12:16 Dose: Infused Lactobacillus Rhamnosus (Culturelle) 1 each PO DAILY [place] Stop: 08/08/17 08:59 Last Admin: 06/19/17 08:20 Dose: 1 each Lactulose (Cephulac) 30 gm GT Q6HR [place] Stop: 08/08/17 17:59 Last Admin: 06/19/17 12:00 Dose: 30 gm Levetiracetam (Keppra) 1,000 mg GT Q8HR [facility] Stop: 08/06/17 20:59 Last Admin: 06/19/17 14:04 Dose: 1,000 mg Lorazepam (Ativan) 1 mg IVP Q6H PRN; Protocol PRN Reason: Agitation Stop: 08/13/17 23:17 Last Admin: 06/19/17 08:55 Dose: 1 mg Magnesium Hydroxide (Milk Of Magnesia) 30 ml GT HS PRN PRN Reason: Constipation Stop: 08/06/17 19:17 Magnesium Oxide (Mag-Oxide) 400 mg GT DAILY [facility] Stop: 08/07/17 08:59 Last Admin: 06/19/17 08:20 Dose: 400 mg Metoprolol Tartrate (Lopressor) 100 mg GT Q12HR [place] Stop: 08/06/17 20:59 Last Admin: 06/19/17 08:40 Dose: 100 mg Miscellaneous (Vancomycin Iv Per Pharmacy) 1 ea PRN PRN PRN Reason: PROTOCOL Stop: 08/07/17 07:59 Miscellaneous (Probiotic Screen) 1 ea PRN PRN PRN Reason: PROTOCOL Stop: 08/07/17 10:42 Phytonadione (Mephyton) 10 mg GT DAILY [facility] Stop: 08/07/17 19:59 Last Admin: 06/19/17 08:20 Dose: 10 mg Potassium Chloride (Potassium Chloride Elixir) 20 meq GT TID [facility] Stop: 08/12/17 13:59 Last Admin: 06/19/17 14:05 Dose: 20 meq Propranolol HCl (Inderal) 20 mg GT TID [facility] Stop: 08/06/17 20:59 Last Admin: 06/19/17 14:06 Dose: 20 mg Pyridoxine HCl (Vitamin B6) 100 mg GT DAILY [facility] Stop: 08/07/17 08:59 Last Admin: 06/19/17 08:20 Dose: 100 mg Sodium Phosphate (Fleet Enema) 135 ml RC Q48H PRN PRN Reason: IF DULCOLAX IS INEFFECTIVE Stop: 08/06/17 19:17 Thiamine HCl (Vitamin B1) 100 mg GT DAILY [facility] Stop: 08/07/17 08:59 Last Admin: 06/19/17 08:20 Dose: 100 mg Valproate Sodium (Depakene) 500 mg GT TID [place] PRN Reason: Protocol Stop: 08/06/17 20:59 Last Admin: 06/19/17 14:05 Dose: 500 mg General: Alert, No acute distress HEENT: Atraumatic, PERRLA, EOMI, Mucous membr. moist/pink Neck: Supple, +2 carotid pulse wo bruit Cardiovascular: Regular rate, Normal S1, Normal S2 Lungs: Clear to auscultation, Other Abdomen: Bowel sounds, Soft Extremities: no Edema Neurological: Sensation intact Skin: no Rash Psych/Mental Status: Mood NL - Procedures Procedures: Procedures Procedure Code Date RESPIRATORY VENTILATION, GREATER THAN 96 CONSECUTIVE HOURS [id number] 06/07/17 Assessment/Plan - Problem List Patient Problems: All Active Problems ELEVATED NA+, AND BUN LEVELS (Acute) - Assessment Assessment: Hypernatremia RFVD Sepsis etio? CLD Thrombocytopenia Anemia of CD Hypokalemia - Plan Plan: Lab - Result Diagrams 06/09/17 09:30 06/09/17 05:07 Current Medications Albuterol/Ipratropium (Duoneb Neb) 3 ml HHN Q4HR [facility] Stop: 08/06/17 19:59 Last Admin: 06/09/17 11:08 Dose: 3 ml Albuterol/Ipratropium (Duoneb Neb) 3 ml HHN Q4HRT [facility] Stop: 08/07/17 18:59 Amlodipine Besylate (Norvasc) 5 mg GT Q12HR [facility] Stop: 08/06/17 20:59 Last Admin: 06/09/17 10:05 Dose: 5 mg Artificial Tears (Artificial Tears Ophth Soln) 2 drop EACH EYE Q6H PRN PRN Reason: eye dryness Stop: 08/06/17 20:54 Atorvastatin Calcium (Lipitor) 10 mg GT HS [place] PRN Reason: Protocol Stop: 08/06/17 20:59 Last Admin: 06/08/17 21:32 Dose: 10 mg Bisacodyl (Dulcolax 10 Mg Supp) 10 mg RC DAILY PRN PRN Reason: Constipation Stop: 08/06/17 19:17 Budesonide (Pulmicort) 0.5 mg HHN BIDRT [facility] Stop: 08/07/17 18:59 Last Admin: 06/08/17 19:10 Dose: 0.5 mg Calcium/Vitamin D (Oscal W/Vitamin D) 1 tab GT DAILY [facility] Stop: 08/07/17 08:59 Last Admin: 06/09/17 10:05 Dose: 1 tab Chlorhexidine Gluconate (Peridex) 15 ml MM Q12HR [facility] Stop: 08/06/17 20:59 Last Admin: 06/09/17 09:00 Dose: 15 ml Clonazepam (Klonopin) 2 mg GT DAILY [facility] Stop: 08/07/17 08:59 Last Admin: 06/09/17 10:05 Dose: 2 mg Docusate Sodium (Colace) 100 mg GT BID [place] Stop: 08/06/17 20:59 Last Admin: 06/09/17 09:00 Dose: Not Given Ferrous Sulfate (Iron) 300 mg GT BID [place] Stop: 08/06/17 20:59 Last Admin: 06/09/17 10:03 Dose: 300 mg Folic Acid (Folate) 2.5 mg GT DAILY [facility] Stop: 08/07/17 08:59 Last Admin: 06/09/17 10:05 Dose: 2.5 mg Hydralazine HCl (Apresoline) 50 mg GT Q8HR [place] Stop: 08/06/17 20:59 Last Admin: 06/09/17 12:56 Dose: 50 mg Cefepime HCl 1 gm/ Dextrose 50 mls @ 100 mls/hr IV Q8H [facility] Stop: 08/07/17 00:59 Last Infusion: 06/09/17 09:30 Dose: Infused Vancomycin HCl 1.25 gm/ Sodium (Chloride) 250 mls @ 165 mls/hr IV Q12H [facility] Stop: 08/07/17 09:59 Last Infusion: 06/09/17 11:31 Dose: Infused Dextrose (D5w) 1,000 mls @ 150 mls/hr IV .Q6H40M [facility] Stop: 08/07/17 09:37 Last Admin: 06/09/17 07:33 Dose: 150 mls/hr Lactobacillus Rhamnosus (Culturelle) 1 each PO DAILY [facility] Stop: 08/08/17 08:59 Last Admin: 06/09/17 10:04 Dose: 1 each Lactulose (Cephulac) 30 gm GT Q8HR [place] Stop: 08/06/17 20:59 Last Admin: 06/09/17 12:56 Dose: Not Given Levetiracetam (Keppra) 1,000 mg GT Q8HR [facility] Stop: 08/06/17 20:59 Last Admin: 06/09/17 12:56 Dose: 1,000 mg Magnesium Hydroxide (Milk Of Magnesia) 30 ml GT HS PRN PRN Reason: Constipation Stop: 08/06/17 19:17 Magnesium Oxide (Mag-Oxide) 400 mg GT DAILY [place] Stop: 08/07/17 08:59 Last Admin: 06/09/17 10:04 Dose: 400 mg Metoprolol Tartrate (Lopressor) 100 mg GT Q12HR [facility] Stop: 08/06/17 20:59 Last Admin: 06/09/17 10:04 Dose: 100 mg Miscellaneous (Vancomycin Iv Per Pharmacy) 1 ea PRN PRN PRN Reason: PROTOCOL Stop: 08/07/17 07:59 Miscellaneous (Probiotic Screen) 1 ea PRN PRN PRN Reason: PROTOCOL Stop: 08/07/17 10:42 Phytonadione (Mephyton) 10 mg GT DAILY [facility] Stop: 08/07/17 19:59 Last Admin: 06/09/17 10:06 Dose: 10 mg Potassium Chloride (Potassium Chloride Elixir) 20 meq GT BID [facility] Stop: 08/07/17 08:59 Last Admin: 06/09/17 11:30 Dose: 20 meq Propranolol HCl (Inderal) 20 mg GT TID [facility] Stop: 08/06/17 20:59 Last Admin: 06/09/17 10:03 Dose: 20 mg Pyridoxine HCl (Vitamin B6) 100 mg GT DAILY [facility] Stop: 08/07/17 08:59 Last Admin: 06/09/17 10:05 Dose: 100 mg Rifaximin (Xifaxan) 500 mg PO BID [place] Stop: 08/07/17 16:59 Last Admin: 06/09/17 10:06 Dose: 500 mg Sodium Phosphate (Fleet Enema) 135 ml RC Q48H PRN PRN Reason: IF DULCOLAX IS INEFFECTIVE Stop: 08/06/17 19:17 Thiamine HCl (Vitamin B1) 100 mg GT DAILY [facility] Stop: 08/07/17 08:59 Last Admin: 06/09/17 10:05 Dose: 100 mg Valproate Sodium (Depakene) 500 mg GT TID [place] PRN Reason: Protocol Stop: 08/06/17 20:59 Last Admin: 06/09/17 10:03 Dose: 500 mg CXR: CM, B/L ATx electrolytes has improved off ivf, Na now 143 F/U electrolytes, cbc continue lactulose Lab - Result Diagrams 06/18/17 04:59 06/18/17 04:59 Nutritional Asmnt/Malnutr-PDOC - Dietary Evaluation Malnutrition Findings (Please click <Entered> for more info): Nutritional Asmnt/Malnutrition Start: 06/09/17 11: 00 Text: Status: Complete Freq: Document 06/09/17 13:09 [facility] (Rec: 06/09/17 13:27 [facility] [id number]) Nutritional Asmnt/Malnutrition Patient General Information Nutritional Screening High Risk Screening Diagnosis Sepsis, UTI, right and left lower lobe infiltrate, pneumonia Pertinent Medical Hx/Surgical Hx Alcohol problem, liver disease , cirrhosis of the liver, hepatic comas, seizures, trachestomy, PEG, asthma, COPD Subjective Information Pt is a 52-year-old male from [facility] admitted with chief complaint of shortness of breath and falling oxygen saturation. Pt has tracheostomy to ventilator. Pt was unable to provide nutritional hx. Pt appears well nourished with no signs of muscle or fat depletion. Order to resume tube feeding; bag of Novosource Renal at bedside not yet started. Abdomen Ultrasound 06/09 notes some abdominal ascites. Current Diet Order/ Nutrition Support Novosource Renal at 55 ml/hr = 2640kcals, 120gm protein, 946ml free water Patient / S.O Can't verbalize diet edu Pertinent Medications Oscal with Vitamin D, Cefepime , D5w, Iron, Folate, Culturelle, MagOxide, Mephyton , KCl Elixir, Vitamin B6, Vitamin B1, Depakene, Vancomycin Pertinent Labs (06/09) Na 148H (improving), K 3L, Alkaline Phosphatase 171H, Ammonia 64H, Albumin 3.3L Nutritional Hx/Data Height 1.68 m Height (Calculated Centimeters) 167.6 Current Weight (lbs) 76.657 kg Weight (Calculated Kilograms) 76.7 Weight (Calculated Grams) 63733.1 Usual body Weight (lbs) 168 % Usual Body Weight 100 Roberts Body Weight 142 % Roberts Body Weight 119 Recent Weight Change No Weight Status Overweight GI Symptoms GI Symptoms Diarrhea Difficult in: Chewing Swallowing Food Allergies No Usual diet at home Nepro 1.8 (237 ml) QID 0900, 1300, 1700, 2100, sugar free ProStat 30 ml Skin Integrity/Comment: Vitor Thomas. Skin intact. Estimated Nutritional Goals BEE in Kcals: Using Current wt Calories/Kcals/Kg Based on current wt 76.8 kg with consideration of sepsis: Kcals Calculated 3233-4196 kcals/day (27-32 kcals/kg) to prevent wt gain with overwt status Protein: Using Current wt Protein g/kg: Based on current wt 76.8 kg with consideration of sepsis: Protein Calculated 92-115 gm/day (1.2-1.5 gm/kg) Fluid: ml Per MD/DO due to abnormal electrolytes Nutritional Problem 1. Problem Problem Excessive intake from enteral nutrition related to Etiology increased energy intake from calorically dense tube feeding formula as evidenced by Signs/Symptoms: current tube feeding meets 104 % of higher end of estimated calories needs. Malnutrition Alert Protein-Calorie Malnutrition N/A Is there a minimum of two criteria No selected? Query Text:Check all the applicable criteria. A minimum of two criteria are recommended for diagnosis of either severe or non-severe malnutrition. Malnutrition Related to Morbid Obesity Malnutrition related to morbid obesity No Intervention/Recommendation Recommendations by RD Decrease Calorie Intake Comments 1. Recommend decrease tube feeding Novosource Renal at goal rate of 50 ml/hr to provide 2400 kcals, 109 gm protein, and 860 ml free water per day. Monitor renal labs to prioritize protein needs. Expected Outcomes/Goals Expected Outcomes/Goals Provide pt with 100% of estimated nutritional needs. Physician Parameters for PEM Serum Albumin (g/dl) 3.1 - 3.4 (Mild)
[2017-06-19] MEDS: Atorvastatin Calcium 10 MG TAB GT SCH (20:10)
[2017-06-20] MEDS: Lactulose 10 Gm/15 mL 30mL UDC GT SCH ×4 (01:03→18:02)
[2017-06-20] MEDS: Albuterol/Ipratropium Neb 3 ML AERS HHN SCH ×6 (04:01→22:21)
[2017-06-20] MEDS: Levetiracetam 500 mg/5mL 5mL UDC GT SCH ×3 (05:06→20:36)
--- NOTE | 2017-06-20 05:10 | Progress Notes ---
DATE: 06/19/2017 PROBLEM LIST: 1. Persistent respiratory failure. 2. Encephalopathic state. SYMPTOMS: Nil. The patient is fugitive, restless, in no distress. PHYSICAL EXAMINATION: VITAL SIGNS: Temperature is 97.4, blood pressure 105/87, saturation 100%. NECK: Veins not visualized. Good bilateral carotid upstroke. CHEST: Shows diminished air entry without any other adventitious breath sound. HEART: Regular. ABDOMEN: Soft, nontender. EXTREMITIES: Show no peripheral edema. LABORATORY DATA: The patient's white count is 5.7 and the patient's platelet is decreased. The patient's ammonia the last one was about 84. ASSESSMENT: The patient clinically appears to be stable, unchanged. Bilateral pneumonia, improving. Left side effusion, stable. Hepatic encephalopathy, unchanged. Acute on chronic vent, stable. PLANS AND SUGGESTIONS: We will continue current respiratory care, await for discharge planning. JOB# [id number]
[2017-06-20] MEDS: Budesonide 0.5 Mg/2 mL Ud HHN SCH ×2 (06:51→18:28)
[2017-06-20] MEDS: Chlorhexidine Gluconate 0.12% 15mL Mouthwash MM SCH ×2 (08:00→20:08)
[2017-06-20] MEDS: Potassium Chloride Elixir 20 mEq /15 mL UDC GT SCH ×3 (09:05→20:35)
[2017-06-20] MEDS: Lactobacillus Rhamnosus 10 Billion CFU Capsule PO SCH (09:06)
[2017-06-20] MEDS: Calcium Carb/Vit D 500 mg/200 U Tab GT SCH (09:06)
--- NOTE | 2017-06-20 13:14 | General Progress Note ---
Subjective - Review of Systems Events since last encounter: patient on vent no distress pneumonia improving Subjective: on vent, afebrile nad Objective - Results Result Diagrams: 06/19/17 10:00 06/18/17 04:59 Recent Labs: Laboratory Last Values WBC 5.7 Th/cmm (4.8-10.8) D 06/19/17 10:00 RBC 2.87 Mil/cmm (4.30-5.70) L 06/19/17 10:00 Hgb 9.3 gm/dL (13.2-17.3) L 06/19/17 10:00 Hct 27.3 % (39.0-49.0) L 06/19/17 10:00 MCV 95.2 fl (80-99) 06/19/17 10:00 MCH 32.5 pg (26.0-30.0) H 06/19/17 10:00 MCHC Differential 34.2 pg (28.0-36.0) 06/19/17 10:00 RDW 15.5 % (11.5-20.0) 06/19/17 10:00 Plt Count 88 Th/cmm (150-400) L 06/19/17 10:00 MPV 9.7 fl 06/19/17 10:00 Neutrophils % 50.2 % (40.0-80.0) 06/15/17 04:30 Band Neutrophils % 4 % (0-10) 06/19/17 10:00 Lymphocytes % 22.2 % (20.0-50.0) 06/15/17 04:30 Monocytes % 24.6 % (2.0-10.0) H 06/15/17 04:30 Eosinophils % 2.9 % (0.0-5.0) 06/15/17 04:30 Basophils % 0.3 % (0.0-2.0) 06/10/17 04:40 Neutrophils (Manual) 54 % (40-80) 06/19/17 10:00 Lymphocytes 16 % (20-50) L 06/19/17 10:00 Monocytes 24 % (2-10) H 06/19/17 10:00 Eosinophils 2 % (0-5) 06/19/17 10:00 Basophils 0 % (0-3) 06/14/17 05:00 Metamyelocytes 2 % (0-0) H 06/13/17 07:20 Myelocytes 1 % 06/13/17 07:20 Nucleated RBCs 1.0 % (0-0) H 06/08/17 04:59 Platelet Estimate DECREASED PLATELETS (NORMAL) 06/19/17 10:00 Platelet Morphology PLATELET CLUMPS SEEN (NORMAL) 06/19/17 10:00 Polychromasia 1+ 06/18/17 04:59 Anisocytosis 1+ 06/19/17 10:00 RBC Morph Micro Appear ABNORMAL (NORMAL) 06/19/17 10:00 Specimen Source ARTERIAL 06/10/17 08:43 Sample Site Left Radial 06/10/17 08:43 pH 7.46 (7.35-7.45) H 06/10/17 08:43 pCO2 36.0 mmHg (35.0-45.0) 06/10/17 08:43 pO2 92.0 mmHg (80.0-100.0) 06/10/17 08:43 HCO3 26.4 mEq/L (20.0-26.0) H 06/10/17 08:43 Base Excess 1.9 mEq/L (-3.0-3.0) 06/10/17 08:43 O2 Saturation 98.0 % (92.0-100.0) 06/10/17 08:43 Jose L Test POSITIVE 06/10/17 08:43 Vent Rate 12 06/10/17 08:43 Inspired O2 40 06/10/17 08:43 Tidal Volume 500 06/10/17 08:43 PEEP 5 06/10/17 08:43 Pressure (ins/psv/peep) N/A 06/10/17 08:43 Critical Value SAURABH 06/10/17 08:43 Sodium 143 mEq/L (136-145) 06/18/17 04:59 Potassium 3.7 mEq/L (3.5-5.1) 06/18/17 04:59 Chloride 114 mEq/L (98-107) H 06/18/17 04:59 Carbon Dioxide 26.4 mEq/L (21.0-31.0) 06/18/17 04:59 Anion Gap 6.3 (7.0-16.0) L 06/18/17 04:59 BUN 19 mg/dL (7-25) 06/18/17 04:59 Creatinine 0.5 mg/dL (0.7-1.3) L 06/18/17 04:59 Est GFR ( Amer) > 60.0 ml/min (>90) 06/18/17 04:59 Est GFR (Non-Af Amer) > 60.0 ml/min 06/18/17 04:59 BUN/Creatinine Ratio 38.0 06/18/17 04:59 Glucose 106 mg/dL (70-105) H 06/18/17 04:59 Plasma/Ser Osmolality 313 mOsmol/kg (275-295) H 06/09/17 05:07 Whole Bld Lactic Acid 1.51 mmol/L (0.60-1.99) 06/08/17 04:59 Calcium 10.0 mg/dL (8.6-10.3) 06/18/17 04:59 Phosphorus 2.7 mg/dL (2.5-5.0) 06/08/17 04:59 Magnesium 1.6 mg/dL (1.9-2.7) L 06/14/17 05:00 Iron 71 ug/dL (38-169) 06/08/17 04:59 TIBC 173 ug/dL (250-450) L 06/08/17 04:59 Iron Saturation 41 % (15-55) 06/08/17 04:59 Unsaturated IBC 102 ug/dL (111-343) L 06/08/17 04:59 Ferritin 303 ng/mL (30-400) 06/08/17 04:59 Total Bilirubin 1.0 mg/dL (0.3-1.0) 06/16/17 04:40 Direct Bilirubin 0.29 mg/dL (0.0-0.2) H 06/16/17 04:40 AST 28 U/L (13-39) 06/16/17 04:40 ALT 13 U/L (7-52) 06/16/17 04:40 Alkaline Phosphatase 184 U/L (34-104) H 06/16/17 04:40 Ammonia 84 umol/L (16-53) H 06/17/17 07:00 Troponin I 0.01 ng/mL (0.01-0.05) 06/07/17 13:28 B-Natriuretic Peptide 91.8 pg/mL (5.0-100.0) 06/07/17 13:28 Total Protein 7.8 gm/dL (6.0-8.3) 06/16/17 04:40 Albumin 2.6 gm/dL (4.2-5.5) L 06/16/17 04:40 Globulin 5.2 gm/dL 06/16/17 04:40 Albumin/Globulin Ratio 0.5 (1.0-1.8) L 06/16/17 04:40 Vitamin B12 >1999 pg/mL (211-946) H 06/08/17 04:59 Folic Acid >20.0 ng/mL (>3.0) 06/08/17 04:59 Urine Source RANDOM 06/07/17 13:25 Urine Color NISA 06/07/17 13:25 Urine Clarity CLOUDY (CLEAR) 06/07/17 13:25 Urine pH 5.5 (4.6 - 8.0) 06/07/17 13:25 Ur Specific [place] 1.020 (1.005-1.030) 06/07/17 13:25 Urine Protein >=300 mg/dL (NEGATIVE) 06/07/17 13:25 Urine Glucose (UA) NEGATIVE mg/dL (NEGATIVE) 06/07/17 13:25 Urine Ketones 15 mg/dL (NEGATIVE) H 06/07/17 13:25 Urine Blood LARGE (NEGATIVE) H 06/07/17 13:25 Urine Nitrate POSITIVE (NEGATIVE) H 06/07/17 13:25 Urine Bilirubin MODERATE (NEGATIVE) H 06/07/17 13:25 Urine Urobilinogen 2.0 E.U./dL (0.2 - 1.0) 06/07/17 13:25 Ur Leukocyte Esterase MODERATE (NEGATIVE) H 06/07/17 13:25 Urine RBC >100 /hpf (0-5) H 06/07/17 13:25 Urine WBC 2-5 /hpf (0-5) H 06/07/17 13:25 Ur Epithelial Cells OCCASIONAL /lpf (FEW) 06/07/17 13:25 Urine Bacteria FEW /hpf (NONE SEEN) 06/07/17 13:25 Urine Osmolality 776 mOsmol/kg 06/09/17 05:53 Ur Random Sodium 119 mmol/L 06/08/17 18:16 Stool Occult Blood NEGATIVE (NEGATIVE) 06/12/17 17:30 Vancomycin Trough 17.9 ug/mL (10-20) 06/20/17 09:35 Blood Type O POSITIVE 06/09/17 09:30 Antibody Screen NEGATIVE 06/09/17 09:30 - Physical Exam Vitals and I&O: Vital Signs Temp 96.8 F 06/20/17 12:00 Pulse 66 06/20/17 13:01 Resp 13 06/20/17 12:00 BP 118/70 06/20/17 13:01 Pulse Ox 100 06/20/17 12:00 Intake & Output 06/19/17 06/20/17 06/20/17 18:59 06:59 18:59 Intake Total 1550 1050 200 Output Total 850 1200 Balance 700 -150 200 Weight (lbs) 81.647 kg 80.785 kg 80.739 kg Intake: Intake, IV Amount 700 450 200 Colistimethate 150 mg In 100 100 Sodium Chloride 0.9% 100 ml @ 100 mls/hr IV Q12HR [facility] Rx#:[id number] Meropenem 1 gm In Sodium 100 100 100 Chloride 0.9% 100 ml @ 100 mls/hr IV Q12H [facility] Rx #:[id number] Vancomycin HCl 1.25 gm In 500 250 Sodium Chloride 0.9% 250 ml @ 165 mls/hr IV Q12H [facility] Rx#:[id number] Tube Feeding 600 600 Other 250 Output: Urine 550 500 Stool 300 700 Other: # Bowel Movements 1 Stool Characteristics Liquid Liquid Liquid Brown Active Medications: Current Medications Albuterol/Ipratropium (Duoneb Neb) 3 ml HHN Q4HRT [facility] Stop: 08/07/17 18:59 Last Admin: 06/20/17 11:47 Dose: 3 ml Amlodipine Besylate (Norvasc) 5 mg GT Q12HR [facility] Stop: 08/06/17 20:59 Last Admin: 06/20/17 09:06 Dose: Not Given Artificial Tears (Artificial Tears Ophth Soln) 2 drop EACH EYE Q6H PRN PRN Reason: eye dryness Stop: 08/06/17 20:54 Last Admin: 06/16/17 09:32 Dose: 2 drop Atorvastatin Calcium (Lipitor) 10 mg GT HS [facility] PRN Reason: Protocol Stop: 08/06/17 20:59 Last Admin: 06/19/17 20:10 Dose: 10 mg Bisacodyl (Dulcolax 10 Mg Supp) 10 mg RC DAILY PRN PRN Reason: Constipation Stop: 08/06/17 19:17 Budesonide (Pulmicort) 0.5 mg HHN BIDRT [facility] Stop: 08/07/17 18:59 Last Admin: 06/20/17 06:51 Dose: 0.5 mg Calcium/Vitamin D (Oscal W/Vitamin D) 1 tab GT DAILY [facility] Stop: 08/07/17 08:59 Last Admin: 06/20/17 09:06 Dose: 1 tab Chlorhexidine Gluconate (Peridex) 15 ml MM 0800,1999 [facility] Stop: 08/08/17 19:59 Last Admin: 06/20/17 08:00 Dose: 15 ml Folic Acid (Folate) 2.5 mg GT DAILY [facility] Stop: 08/07/17 08:59 Last Admin: 06/20/17 09:06 Dose: 2.5 mg Hydralazine HCl (Apresoline) 50 mg GT Q8HR [facility] Stop: 08/06/17 20:59 Last Admin: 06/20/17 13:01 Dose: 50 mg Meropenem 1 gm/ Sodium (Chloride) 100 mls @ 100 mls/hr IV Q12H [facility] Stop: 08/13/17 08:59 Last Infusion: 06/20/17 10:40 Dose: Infused Vancomycin HCl 1.25 gm/ Sodium (Chloride) 250 mls @ 165 mls/hr IV Q12H [facility] Stop: 08/15/17 09:59 Last Admin: 06/20/17 10:40 Dose: 165 mls/hr Colistimethate Sodium 150 mg/ (Sodium Chloride) 100 mls @ 100 mls/hr IV Q12HR [facility] Stop: 08/18/17 20:59 Last Infusion: 06/20/17 09:20 Dose: Infused Lactobacillus Rhamnosus (Culturelle) 1 each PO DAILY [facility] Stop: 08/08/17 08:59 Last Admin: 06/20/17 09:06 Dose: 1 each Lactulose (Cephulac) 30 gm GT Q6HR [facility] Stop: 08/08/17 17:59 Last Admin: 06/20/17 11:47 Dose: 30 gm Levetiracetam (Keppra) 1,000 mg GT Q8HR [facility] Stop: 08/06/17 20:59 Last Admin: 06/20/17 13:01 Dose: 1,000 mg Lorazepam (Ativan) 1 mg IVP Q6H PRN; Protocol PRN Reason: Agitation Stop: 08/13/17 23:17 Last Admin: 06/20/17 08:48 Dose: 1 mg Magnesium Hydroxide (Milk Of Magnesia) 30 ml GT HS PRN PRN Reason: Constipation Stop: 08/06/17 19:17 Magnesium Oxide (Mag-Oxide) 400 mg GT DAILY [facility] Stop: 08/07/17 08:59 Last Admin: 06/20/17 09:06 Dose: 400 mg Metoprolol Tartrate (Lopressor) 100 mg GT Q12HR [facility] Stop: 08/06/17 20:59 Last Admin: 06/20/17 09:06 Dose: Not Given Miscellaneous (Vancomycin Iv Per Pharmacy) 1 ea PRN PRN PRN Reason: PROTOCOL Stop: 08/07/17 07:59 Miscellaneous (Probiotic Screen) 1 ea PRN PRN PRN Reason: PROTOCOL Stop: 08/07/17 10:42 Phytonadione (Mephyton) 10 mg GT DAILY [facility] Stop: 08/07/17 19:59 Last Admin: 06/20/17 09:05 Dose: 10 mg Potassium Chloride (Potassium Chloride Elixir) 20 meq GT TID [facility] Stop: 08/12/17 13:59 Last Admin: 06/20/17 09:05 Dose: 20 meq Propranolol HCl (Inderal) 20 mg GT TID [facility] Stop: 08/06/17 20:59 Last Admin: 06/20/17 09:07 Dose: Not Given Pyridoxine HCl (Vitamin B6) 100 mg GT DAILY [facility] Stop: 08/07/17 08:59 Last Admin: 06/20/17 09:05 Dose: 100 mg Sodium Phosphate (Fleet Enema) 135 ml RC Q48H PRN PRN Reason: IF DULCOLAX IS INEFFECTIVE Stop: 08/06/17 19:17 Thiamine HCl (Vitamin B1) 100 mg GT DAILY [facility] Stop: 08/07/17 08:59 Last Admin: 06/20/17 09:06 Dose: 100 mg Valproate Sodium (Depakene) 500 mg GT TID [facility] PRN Reason: Protocol Stop: 08/06/17 20:59 Last Admin: 06/20/17 09:05 Dose: 500 mg General: Alert, No acute distress HEENT: Atraumatic, PERRLA, EOMI, Mucous membr. moist/pink Neck: Supple, +2 carotid pulse wo bruit Cardiovascular: Regular rate, Normal S1, Normal S2 Lungs: Clear to auscultation, Other Abdomen: Bowel sounds, Soft Extremities: no Edema Neurological: Sensation intact Skin: no Rash Psych/Mental Status: Mood NL - Procedures Procedures: Procedures Procedure Code Date RESPIRATORY VENTILATION, GREATER THAN 96 CONSECUTIVE HOURS [id number] 06/07/17 Assessment/Plan - Problem List Patient Problems: All Active Problems ELEVATED NA+, AND BUN LEVELS (Acute) - Assessment Assessment: s/p respiratory failure pnumonia s/p trch and peg trmors h/o alcoholism h/o sizures - Plan Plan: iv antibiotics vent support continue current plan of care am labs Nutritional Asmnt/Malnutr-PDOC - Dietary Evaluation Malnutrition Findings (Please click <Entered> for more info): Nutritional Asmnt/Malnutrition Start: 06/09/17 11: 00 Text: Status: Complete Freq: Document 06/09/17 13:09 [facility] (Rec: 06/09/17 13:27 [facility] [id number]) Nutritional Asmnt/Malnutrition Patient General Information Nutritional Screening High Risk Screening Diagnosis Sepsis, UTI, right and left lower lobe infiltrate, pneumonia Pertinent Medical Hx/Surgical Hx Alcohol problem, liver disease , cirrhosis of the liver, hepatic comas, seizures, trachestomy, PEG, asthma, COPD Subjective Information Pt is a 52-year-old male from [facility] admitted with chief complaint of shortness of breath and falling oxygen saturation. Pt has tracheostomy to ventilator. Pt was unable to provide nutritional hx. Pt appears well nourished with no signs of muscle or fat depletion. Order to resume tube feeding; bag of Novosource Renal at bedside not yet started. Abdomen Ultrasound 06/09 notes some abdominal ascites. Current Diet Order/ Nutrition Support Novosource Renal at 55 ml/hr = 2640kcals, 120gm protein, 946ml free water Patient / S.O Can't verbalize diet edu Pertinent Medications Oscal with Vitamin D, Cefepime , D5w, Iron, Folate, Culturelle, MagOxide, Mephyton , KCl Elixir, Vitamin B6, Vitamin B1, Depakene, Vancomycin Pertinent Labs (06/09) Na 148H (improving), K 3L, Alkaline Phosphatase 171H, Ammonia 64H, Albumin 3.3L Nutritional Hx/Data Height 1.68 m Height (Calculated Centimeters) 167.6 Current Weight (lbs) 76.657 kg Weight (Calculated Kilograms) 76.7 Weight (Calculated Grams) 98945.1 Usual body Weight (lbs) 168 % Usual Body Weight 100 [place] Body Weight 142 % [place] Body Weight 119 Recent Weight Change No Weight Status Overweight GI Symptoms GI Symptoms Diarrhea Difficult in: Chewing Swallowing Food Allergies No Usual diet at home Nepro 1.8 (237 ml) QID 0900, 1300, 1700, 2100, sugar free ProStat 30 ml Skin Integrity/Comment: Vitor 12. Skin intact. Estimated Nutritional Goals BEE in Kcals: Using Current wt Calories/Kcals/Kg Based on current wt 76.8 kg with consideration of sepsis: Kcals Calculated 2742-5799 kcals/day (27-32 kcals/kg) to prevent wt gain with overwt status Protein: Using Current wt Protein g/kg: Based on current wt 76.8 kg with consideration of sepsis: Protein Calculated 92-115 gm/day (1.2-1.5 gm/kg) Fluid: ml Per MD/DO due to abnormal electrolytes Nutritional Problem 1. Problem Problem Excessive intake from enteral nutrition related to Etiology increased energy intake from calorically dense tube feeding formula as evidenced by Signs/Symptoms: current tube feeding meets 104 % of higher end of estimated calories needs. Malnutrition Alert Protein-Calorie Malnutrition N/A Is there a minimum of two criteria No selected? Query Text:Check all the applicable criteria. A minimum of two criteria are recommended for diagnosis of either severe or non-severe malnutrition. Malnutrition Related to Morbid Obesity Malnutrition related to morbid obesity No Intervention/Recommendation Recommendations by RD Decrease Calorie Intake Comments 1. Recommend decrease tube feeding Novosource Renal at goal rate of 50 ml/hr to provide 2400 kcals, 109 gm protein, and 860 ml free water per day. Monitor renal labs to prioritize protein needs. Expected Outcomes/Goals Expected Outcomes/Goals Provide pt with 100% of estimated nutritional needs. Physician Parameters for PEM Serum Albumin (g/dl) 3.1 - 3.4 (Mild)
--- NOTE | 2017-06-20 13:38 | General Progress Note ---
Subjective - Review of Systems Service Date: 06/20/17 Subjective: sleeping, arousable, on vent Objective - Results Result Diagrams: 06/19/17 10:00 06/18/17 04:59 Recent Labs: Laboratory Last Values WBC 5.7 Th/cmm (4.8-10.8) D 06/19/17 10:00 RBC 2.87 Mil/cmm (4.30-5.70) L 06/19/17 10:00 Hgb 9.3 gm/dL (13.2-17.3) L 06/19/17 10:00 Hct 27.3 % (39.0-49.0) L 06/19/17 10:00 MCV 95.2 fl (80-99) 06/19/17 10:00 MCH 32.5 pg (26.0-30.0) H 06/19/17 10:00 MCHC Differential 34.2 pg (28.0-36.0) 06/19/17 10:00 RDW 15.5 % (11.5-20.0) 06/19/17 10:00 Plt Count 88 Th/cmm (150-400) L 06/19/17 10:00 MPV 9.7 fl 06/19/17 10:00 Neutrophils % 50.2 % (40.0-80.0) 06/15/17 04:30 Band Neutrophils % 4 % (0-10) 06/19/17 10:00 Lymphocytes % 22.2 % (20.0-50.0) 06/15/17 04:30 Monocytes % 24.6 % (2.0-10.0) H 06/15/17 04:30 Eosinophils % 2.9 % (0.0-5.0) 06/15/17 04:30 Basophils % 0.3 % (0.0-2.0) 06/10/17 04:40 Neutrophils (Manual) 54 % (40-80) 06/19/17 10:00 Lymphocytes 16 % (20-50) L 06/19/17 10:00 Monocytes 24 % (2-10) H 06/19/17 10:00 Eosinophils 2 % (0-5) 06/19/17 10:00 Basophils 0 % (0-3) 06/14/17 05:00 Metamyelocytes 2 % (0-0) H 06/13/17 07:20 Myelocytes 1 % 06/13/17 07:20 Nucleated RBCs 1.0 % (0-0) H 06/08/17 04:59 Platelet Estimate DECREASED PLATELETS (NORMAL) 06/19/17 10:00 Platelet Morphology PLATELET CLUMPS SEEN (NORMAL) 06/19/17 10:00 Polychromasia 1+ 06/18/17 04:59 Anisocytosis 1+ 06/19/17 10:00 RBC Morph Micro Appear ABNORMAL (NORMAL) 06/19/17 10:00 Specimen Source ARTERIAL 06/10/17 08:43 Sample Site Left Radial 06/10/17 08:43 pH 7.46 (7.35-7.45) H 06/10/17 08:43 pCO2 36.0 mmHg (35.0-45.0) 06/10/17 08:43 pO2 92.0 mmHg (80.0-100.0) 06/10/17 08:43 HCO3 26.4 mEq/L (20.0-26.0) H 06/10/17 08:43 Base Excess 1.9 mEq/L (-3.0-3.0) 06/10/17 08:43 O2 Saturation 98.0 % (92.0-100.0) 06/10/17 08:43 Jose L Test POSITIVE 06/10/17 08:43 Vent Rate 12 06/10/17 08:43 Inspired O2 40 06/10/17 08:43 Tidal Volume 500 06/10/17 08:43 PEEP 5 06/10/17 08:43 Pressure (ins/psv/peep) N/A 06/10/17 08:43 Critical Value SAURABH 06/10/17 08:43 Sodium 143 mEq/L (136-145) 06/18/17 04:59 Potassium 3.7 mEq/L (3.5-5.1) 06/18/17 04:59 Chloride 114 mEq/L (98-107) H 06/18/17 04:59 Carbon Dioxide 26.4 mEq/L (21.0-31.0) 06/18/17 04:59 Anion Gap 6.3 (7.0-16.0) L 06/18/17 04:59 BUN 19 mg/dL (7-25) 06/18/17 04:59 Creatinine 0.5 mg/dL (0.7-1.3) L 06/18/17 04:59 Est GFR ( Amer) > 60.0 ml/min (>90) 06/18/17 04:59 Est GFR (Non-Af Amer) > 60.0 ml/min 06/18/17 04:59 BUN/Creatinine Ratio 38.0 06/18/17 04:59 Glucose 106 mg/dL (70-105) H 06/18/17 04:59 Plasma/Ser Osmolality 313 mOsmol/kg (275-295) H 06/09/17 05:07 Whole Bld Lactic Acid 1.51 mmol/L (0.60-1.99) 06/08/17 04:59 Calcium 10.0 mg/dL (8.6-10.3) 06/18/17 04:59 Phosphorus 2.7 mg/dL (2.5-5.0) 06/08/17 04:59 Magnesium 1.6 mg/dL (1.9-2.7) L 06/14/17 05:00 Iron 71 ug/dL (38-169) 06/08/17 04:59 TIBC 173 ug/dL (250-450) L 06/08/17 04:59 Iron Saturation 41 % (15-55) 06/08/17 04:59 Unsaturated IBC 102 ug/dL (111-343) L 06/08/17 04:59 Ferritin 303 ng/mL (30-400) 06/08/17 04:59 Total Bilirubin 1.0 mg/dL (0.3-1.0) 06/16/17 04:40 Direct Bilirubin 0.29 mg/dL (0.0-0.2) H 06/16/17 04:40 AST 28 U/L (13-39) 06/16/17 04:40 ALT 13 U/L (7-52) 06/16/17 04:40 Alkaline Phosphatase 184 U/L (34-104) H 06/16/17 04:40 Ammonia 84 umol/L (16-53) H 06/17/17 07:00 Troponin I 0.01 ng/mL (0.01-0.05) 06/07/17 13:28 B-Natriuretic Peptide 91.8 pg/mL (5.0-100.0) 06/07/17 13:28 Total Protein 7.8 gm/dL (6.0-8.3) 06/16/17 04:40 Albumin 2.6 gm/dL (4.2-5.5) L 06/16/17 04:40 Globulin 5.2 gm/dL 06/16/17 04:40 Albumin/Globulin Ratio 0.5 (1.0-1.8) L 06/16/17 04:40 Vitamin B12 >1999 pg/mL (211-946) H 06/08/17 04:59 Folic Acid >20.0 ng/mL (>3.0) 06/08/17 04:59 Urine Source RANDOM 06/07/17 13:25 Urine Color NISA 06/07/17 13:25 Urine Clarity CLOUDY (CLEAR) 06/07/17 13:25 Urine pH 5.5 (4.6 - 8.0) 06/07/17 13:25 Ur Specific [place] 1.020 (1.005-1.030) 06/07/17 13:25 Urine Protein >=300 mg/dL (NEGATIVE) 06/07/17 13:25 Urine Glucose (UA) NEGATIVE mg/dL (NEGATIVE) 06/07/17 13:25 Urine Ketones 15 mg/dL (NEGATIVE) H 06/07/17 13:25 Urine Blood LARGE (NEGATIVE) H 06/07/17 13:25 Urine Nitrate POSITIVE (NEGATIVE) H 06/07/17 13:25 Urine Bilirubin MODERATE (NEGATIVE) H 06/07/17 13:25 Urine Urobilinogen 2.0 E.U./dL (0.2 - 1.0) 06/07/17 13:25 Ur Leukocyte Esterase MODERATE (NEGATIVE) H 06/07/17 13:25 Urine RBC >100 /hpf (0-5) H 06/07/17 13:25 Urine WBC 2-5 /hpf (0-5) H 06/07/17 13:25 Ur Epithelial Cells OCCASIONAL /lpf (FEW) 06/07/17 13:25 Urine Bacteria FEW /hpf (NONE SEEN) 06/07/17 13:25 Urine Osmolality 776 mOsmol/kg 06/09/17 05:53 Ur Random Sodium 119 mmol/L 06/08/17 18:16 Stool Occult Blood NEGATIVE (NEGATIVE) 06/12/17 17:30 Vancomycin Trough 17.9 ug/mL (10-20) 06/20/17 09:35 Blood Type O POSITIVE 06/09/17 09:30 Antibody Screen NEGATIVE 06/09/17 09:30 - Physical Exam Vitals and I&O: Vital Signs Temp 96.8 F 06/20/17 12:00 Pulse 66 06/20/17 13:01 Resp 13 06/20/17 12:00 BP 118/70 06/20/17 13:01 Pulse Ox 100 06/20/17 12:00 Intake & Output 06/19/17 06/20/17 06/20/17 18:59 06:59 18:59 Intake Total 1550 1050 200 Output Total 850 1200 Balance 700 -150 200 Weight (lbs) 81.647 kg 80.785 kg 80.739 kg Intake: Intake, IV Amount 700 450 200 Colistimethate 150 mg In 100 100 Sodium Chloride 0.9% 100 ml @ 100 mls/hr IV Q12HR [facility] Rx#:[id number] Meropenem 1 gm In Sodium 100 100 100 Chloride 0.9% 100 ml @ 100 mls/hr IV Q12H [facility] Rx #:[id number] Vancomycin HCl 1.25 gm In 500 250 Sodium Chloride 0.9% 250 ml @ 165 mls/hr IV Q12H [facility] Rx#:[id number] Tube Feeding 600 600 Other 250 Output: Urine 550 500 Stool 300 700 Other: # Bowel Movements 1 Stool Characteristics Liquid Liquid Liquid Brown Active Medications: Current Medications Albuterol/Ipratropium (Duoneb Neb) 3 ml HHN Q4HRT [facility] Stop: 08/07/17 18:59 Last Admin: 06/20/17 11:47 Dose: 3 ml Amlodipine Besylate (Norvasc) 5 mg GT Q12HR [facility] Stop: 08/06/17 20:59 Last Admin: 06/20/17 09:06 Dose: Not Given Artificial Tears (Artificial Tears Ophth Soln) 2 drop EACH EYE Q6H PRN PRN Reason: eye dryness Stop: 08/06/17 20:54 Last Admin: 06/16/17 09:32 Dose: 2 drop Atorvastatin Calcium (Lipitor) 10 mg GT HS [place] PRN Reason: Protocol Stop: 08/06/17 20:59 Last Admin: 06/19/17 20:10 Dose: 10 mg Bisacodyl (Dulcolax 10 Mg Supp) 10 mg RC DAILY PRN PRN Reason: Constipation Stop: 08/06/17 19:17 Budesonide (Pulmicort) 0.5 mg HHN BIDRT [facility] Stop: 08/07/17 18:59 Last Admin: 06/20/17 06:51 Dose: 0.5 mg Calcium/Vitamin D (Oscal W/Vitamin D) 1 tab GT DAILY [facility] Stop: 08/07/17 08:59 Last Admin: 06/20/17 09:06 Dose: 1 tab Chlorhexidine Gluconate (Peridex) 15 ml MM 0800,1999 [facility] Stop: 08/08/17 19:59 Last Admin: 06/20/17 08:00 Dose: 15 ml Folic Acid (Folate) 2.5 mg GT DAILY [facility] Stop: 08/07/17 08:59 Last Admin: 06/20/17 09:06 Dose: 2.5 mg Hydralazine HCl (Apresoline) 50 mg GT Q8HR [facility] Stop: 08/06/17 20:59 Last Admin: 06/20/17 13:01 Dose: 50 mg Meropenem 1 gm/ Sodium (Chloride) 100 mls @ 100 mls/hr IV Q12H [facility] Stop: 08/13/17 08:59 Last Infusion: 06/20/17 10:40 Dose: Infused Vancomycin HCl 1.25 gm/ Sodium (Chloride) 250 mls @ 165 mls/hr IV Q12H [facility] Stop: 08/15/17 09:59 Last Admin: 06/20/17 10:40 Dose: 165 mls/hr Colistimethate Sodium 150 mg/ (Sodium Chloride) 100 mls @ 100 mls/hr IV Q12HR [facility] Stop: 08/18/17 20:59 Last Infusion: 06/20/17 09:20 Dose: Infused Lactobacillus Rhamnosus (Culturelle) 1 each PO DAILY [facility] Stop: 08/08/17 08:59 Last Admin: 06/20/17 09:06 Dose: 1 each Lactulose (Cephulac) 30 gm GT Q6HR [facility] Stop: 08/08/17 17:59 Last Admin: 06/20/17 11:47 Dose: 30 gm Levetiracetam (Keppra) 1,000 mg GT Q8HR [facility] Stop: 08/06/17 20:59 Last Admin: 06/20/17 13:01 Dose: 1,000 mg Lorazepam (Ativan) 1 mg IVP Q6H PRN; Protocol PRN Reason: Agitation Stop: 08/13/17 23:17 Last Admin: 06/20/17 08:48 Dose: 1 mg Magnesium Hydroxide (Milk Of Magnesia) 30 ml GT HS PRN PRN Reason: Constipation Stop: 08/06/17 19:17 Magnesium Oxide (Mag-Oxide) 400 mg GT DAILY [facility] Stop: 08/07/17 08:59 Last Admin: 06/20/17 09:06 Dose: 400 mg Metoprolol Tartrate (Lopressor) 100 mg GT Q12HR [facility] Stop: 08/06/17 20:59 Last Admin: 06/20/17 09:06 Dose: Not Given Miscellaneous (Vancomycin Iv Per Pharmacy) 1 ea PRN PRN PRN Reason: PROTOCOL Stop: 08/07/17 07:59 Miscellaneous (Probiotic Screen) 1 ea PRN PRN PRN Reason: PROTOCOL Stop: 08/07/17 10:42 Phytonadione (Mephyton) 10 mg GT DAILY [facility] Stop: 08/07/17 19:59 Last Admin: 06/20/17 09:05 Dose: 10 mg Potassium Chloride (Potassium Chloride Elixir) 20 meq GT TID [facility] Stop: 08/12/17 13:59 Last Admin: 06/20/17 09:05 Dose: 20 meq Propranolol HCl (Inderal) 20 mg GT TID [facility] Stop: 08/06/17 20:59 Last Admin: 06/20/17 09:07 Dose: Not Given Pyridoxine HCl (Vitamin B6) 100 mg GT DAILY [facility] Stop: 08/07/17 08:59 Last Admin: 06/20/17 09:05 Dose: 100 mg Sodium Phosphate (Fleet Enema) 135 ml RC Q48H PRN PRN Reason: IF DULCOLAX IS INEFFECTIVE Stop: 08/06/17 19:17 Thiamine HCl (Vitamin B1) 100 mg GT DAILY [facility] Stop: 08/07/17 08:59 Last Admin: 06/20/17 09:06 Dose: 100 mg Valproate Sodium (Depakene) 500 mg GT TID [place] PRN Reason: Protocol Stop: 08/06/17 20:59 Last Admin: 06/20/17 09:05 Dose: 500 mg General: Alert, No acute distress HEENT: Atraumatic, PERRLA, EOMI, Mucous membr. moist/pink Neck: Supple, +2 carotid pulse wo bruit Cardiovascular: Regular rate, Normal S1, Normal S2 Lungs: Clear to auscultation, Other Abdomen: Bowel sounds, Soft Extremities: no Edema Neurological: Sensation intact Skin: no Rash Psych/Mental Status: Mood NL - Procedures Procedures: Procedures Procedure Code Date RESPIRATORY VENTILATION, GREATER THAN 96 CONSECUTIVE HOURS [id number] 06/07/17 Assessment/Plan - Problem List Patient Problems: All Active Problems ELEVATED NA+, AND BUN LEVELS (Acute) - Assessment Assessment: Hypernatremia RFVD Sepsis etio? CLD Thrombocytopenia Anemia of CD Hypokalemia - Plan Plan: Lab - Result Diagrams 06/09/17 09:30 06/09/17 05:07 Current Medications Albuterol/Ipratropium (Duoneb Neb) 3 ml HHN Q4HR [facility] Stop: 08/06/17 19:59 Last Admin: 06/09/17 11:08 Dose: 3 ml Albuterol/Ipratropium (Duoneb Neb) 3 ml HHN Q4HRT [facility] Stop: 08/07/17 18:59 Amlodipine Besylate (Norvasc) 5 mg GT Q12HR [facility] Stop: 08/06/17 20:59 Last Admin: 06/09/17 10:05 Dose: 5 mg Artificial Tears (Artificial Tears Ophth Soln) 2 drop EACH EYE Q6H PRN PRN Reason: eye dryness Stop: 08/06/17 20:54 Atorvastatin Calcium (Lipitor) 10 mg GT HS [place] PRN Reason: Protocol Stop: 08/06/17 20:59 Last Admin: 06/08/17 21:32 Dose: 10 mg Bisacodyl (Dulcolax 10 Mg Supp) 10 mg RC DAILY PRN PRN Reason: Constipation Stop: 08/06/17 19:17 Budesonide (Pulmicort) 0.5 mg HHN BIDRT [facility] Stop: 08/07/17 18:59 Last Admin: 06/08/17 19:10 Dose: 0.5 mg Calcium/Vitamin D (Oscal W/Vitamin D) 1 tab GT DAILY [facility] Stop: 08/07/17 08:59 Last Admin: 06/09/17 10:05 Dose: 1 tab Chlorhexidine Gluconate (Peridex) 15 ml MM Q12HR [facility] Stop: 08/06/17 20:59 Last Admin: 06/09/17 09:00 Dose: 15 ml Clonazepam (Klonopin) 2 mg GT DAILY [facility] Stop: 08/07/17 08:59 Last Admin: 06/09/17 10:05 Dose: 2 mg Docusate Sodium (Colace) 100 mg GT BID [place] Stop: 08/06/17 20:59 Last Admin: 06/09/17 09:00 Dose: Not Given Ferrous Sulfate (Iron) 300 mg GT BID [place] Stop: 08/06/17 20:59 Last Admin: 06/09/17 10:03 Dose: 300 mg Folic Acid (Folate) 2.5 mg GT DAILY [facility] Stop: 08/07/17 08:59 Last Admin: 06/09/17 10:05 Dose: 2.5 mg Hydralazine HCl (Apresoline) 50 mg GT Q8HR [facility] Stop: 08/06/17 20:59 Last Admin: 06/09/17 12:56 Dose: 50 mg Cefepime HCl 1 gm/ Dextrose 50 mls @ 100 mls/hr IV Q8H [facility] Stop: 08/07/17 00:59 Last Infusion: 06/09/17 09:30 Dose: Infused Vancomycin HCl 1.25 gm/ Sodium (Chloride) 250 mls @ 165 mls/hr IV Q12H [facility] Stop: 08/07/17 09:59 Last Infusion: 06/09/17 11:31 Dose: Infused Dextrose (D5w) 1,000 mls @ 150 mls/hr IV .Q6H40M [facility] Stop: 08/07/17 09:37 Last Admin: 06/09/17 07:33 Dose: 150 mls/hr Lactobacillus Rhamnosus (Culturelle) 1 each PO DAILY [facility] Stop: 08/08/17 08:59 Last Admin: 06/09/17 10:04 Dose: 1 each Lactulose (Cephulac) 30 gm GT Q8HR [facility] Stop: 08/06/17 20:59 Last Admin: 06/09/17 12:56 Dose: Not Given Levetiracetam (Keppra) 1,000 mg GT Q8HR [facility] Stop: 08/06/17 20:59 Last Admin: 06/09/17 12:56 Dose: 1,000 mg Magnesium Hydroxide (Milk Of Magnesia) 30 ml GT HS PRN PRN Reason: Constipation Stop: 08/06/17 19:17 Magnesium Oxide (Mag-Oxide) 400 mg GT DAILY [facility] Stop: 08/07/17 08:59 Last Admin: 06/09/17 10:04 Dose: 400 mg Metoprolol Tartrate (Lopressor) 100 mg GT Q12HR [facility] Stop: 08/06/17 20:59 Last Admin: 06/09/17 10:04 Dose: 100 mg Miscellaneous (Vancomycin Iv Per Pharmacy) 1 ea PRN PRN PRN Reason: PROTOCOL Stop: 08/07/17 07:59 Miscellaneous (Probiotic Screen) 1 ea PRN PRN PRN Reason: PROTOCOL Stop: 08/07/17 10:42 Phytonadione (Mephyton) 10 mg GT DAILY [facility] Stop: 08/07/17 19:59 Last Admin: 06/09/17 10:06 Dose: 10 mg Potassium Chloride (Potassium Chloride Elixir) 20 meq GT BID [place] Stop: 08/07/17 08:59 Last Admin: 06/09/17 11:30 Dose: 20 meq Propranolol HCl (Inderal) 20 mg GT TID [place] Stop: 08/06/17 20:59 Last Admin: 06/09/17 10:03 Dose: 20 mg Pyridoxine HCl (Vitamin B6) 100 mg GT DAILY [facility] Stop: 08/07/17 08:59 Last Admin: 06/09/17 10:05 Dose: 100 mg Rifaximin (Xifaxan) 500 mg PO BID [facility] Stop: 08/07/17 16:59 Last Admin: 06/09/17 10:06 Dose: 500 mg Sodium Phosphate (Fleet Enema) 135 ml RC Q48H PRN PRN Reason: IF DULCOLAX IS INEFFECTIVE Stop: 08/06/17 19:17 Thiamine HCl (Vitamin B1) 100 mg GT DAILY [facility] Stop: 08/07/17 08:59 Last Admin: 06/09/17 10:05 Dose: 100 mg Valproate Sodium (Depakene) 500 mg GT TID [place] PRN Reason: Protocol Stop: 08/06/17 20:59 Last Admin: 06/09/17 10:03 Dose: 500 mg CXR: CM, B/L ATx electrolytes has improved off ivf, Na now 143 F/U electrolytes, cbc continue lactulose Lab - Result Diagrams 06/18/17 04:59 06/18/17 04:59 Nutritional Asmnt/Malnutr-PDOC - Dietary Evaluation Malnutrition Findings (Please click <Entered> for more info): Nutritional Asmnt/Malnutrition Start: 06/09/17 11: 00 Text: Status: Complete Freq: Document 06/09/17 13:09 [facility] (Rec: 06/09/17 13:27 [facility] [id number]) Nutritional Asmnt/Malnutrition Patient General Information Nutritional Screening High Risk Screening Diagnosis Sepsis, UTI, right and left lower lobe infiltrate, pneumonia Pertinent Medical Hx/Surgical Hx Alcohol problem, liver disease , cirrhosis of the liver, hepatic comas, seizures, trachestomy, PEG, asthma, COPD Subjective Information Pt is a 52-year-old male from [facility] admitted with chief complaint of shortness of breath and falling oxygen saturation. Pt has tracheostomy to ventilator. Pt was unable to provide nutritional hx. Pt appears well nourished with no signs of muscle or fat depletion. Order to resume tube feeding; bag of Novosource Renal at bedside not yet started. Abdomen Ultrasound 06/09 notes some abdominal ascites. Current Diet Order/ Nutrition Support Novosource Renal at 55 ml/hr = 2640kcals, 120gm protein, 946ml free water Patient / S.O Can't verbalize diet edu Pertinent Medications Oscal with Vitamin D, Cefepime , D5w, Iron, Folate, Culturelle, MagOxide, Mephyton , KCl Elixir, Vitamin B6, Vitamin B1, Depakene, Vancomycin Pertinent Labs (06/09) Na 148H (improving), K 3L, Alkaline Phosphatase 171H, Ammonia 64H, Albumin 3.3L Nutritional Hx/Data Height 1.68 m Height (Calculated Centimeters) 167.6 Current Weight (lbs) 76.657 kg Weight (Calculated Kilograms) 76.7 Weight (Calculated Grams) 75988.1 Usual body Weight (lbs) 168 % Usual Body Weight 100 [place] Body Weight 142 % [place] Body Weight 119 Recent Weight Change No Weight Status Overweight GI Symptoms GI Symptoms Diarrhea Difficult in: Chewing Swallowing Food Allergies No Usual diet at home Nepro 1.8 (237 ml) QID 0900, 1300, 1700, 2100, sugar free ProStat 30 ml Skin Integrity/Comment: Vitor 12. Skin intact. Estimated Nutritional Goals BEE in Kcals: Using Current wt Calories/Kcals/Kg Based on current wt 76.8 kg with consideration of sepsis: Kcals Calculated 7150-6197 kcals/day (27-32 kcals/kg) to prevent wt gain with overwt status Protein: Using Current wt Protein g/kg: Based on current wt 76.8 kg with consideration of sepsis: Protein Calculated 92-115 gm/day (1.2-1.5 gm/kg) Fluid: ml Per MD/DO due to abnormal electrolytes Nutritional Problem 1. Problem Problem Excessive intake from enteral nutrition related to Etiology increased energy intake from calorically dense tube feeding formula as evidenced by Signs/Symptoms: current tube feeding meets 104 % of higher end of estimated calories needs. Malnutrition Alert Protein-Calorie Malnutrition N/A Is there a minimum of two criteria No selected? Query Text:Check all the applicable criteria. A minimum of two criteria are recommended for diagnosis of either severe or non-severe malnutrition. Malnutrition Related to Morbid Obesity Malnutrition related to morbid obesity No Intervention/Recommendation Recommendations by RD Decrease Calorie Intake Comments 1. Recommend decrease tube feeding Novosource Renal at goal rate of 50 ml/hr to provide 2400 kcals, 109 gm protein, and 860 ml free water per day. Monitor renal labs to prioritize protein needs. Expected Outcomes/Goals Expected Outcomes/Goals Provide pt with 100% of estimated nutritional needs. Physician Parameters for PEM Serum Albumin (g/dl) 3.1 - 3.4 (Mild)
--- NOTE | 2017-06-20 14:42 | General Progress Note ---
Subjective - Review of Systems Service Date: 06/20/17 Subjective: awake, non communicative Objective - Results Result Diagrams: 06/19/17 10:00 06/18/17 04:59 Recent Labs: Laboratory Last Values WBC 5.7 Th/cmm (4.8-10.8) D 06/19/17 10:00 RBC 2.87 Mil/cmm (4.30-5.70) L 06/19/17 10:00 Hgb 9.3 gm/dL (13.2-17.3) L 06/19/17 10:00 Hct 27.3 % (39.0-49.0) L 06/19/17 10:00 MCV 95.2 fl (80-99) 06/19/17 10:00 MCH 32.5 pg (26.0-30.0) H 06/19/17 10:00 MCHC Differential 34.2 pg (28.0-36.0) 06/19/17 10:00 RDW 15.5 % (11.5-20.0) 06/19/17 10:00 Plt Count 88 Th/cmm (150-400) L 06/19/17 10:00 MPV 9.7 fl 06/19/17 10:00 Neutrophils % 50.2 % (40.0-80.0) 06/15/17 04:30 Band Neutrophils % 4 % (0-10) 06/19/17 10:00 Lymphocytes % 22.2 % (20.0-50.0) 06/15/17 04:30 Monocytes % 24.6 % (2.0-10.0) H 06/15/17 04:30 Eosinophils % 2.9 % (0.0-5.0) 06/15/17 04:30 Basophils % 0.3 % (0.0-2.0) 06/10/17 04:40 Neutrophils (Manual) 54 % (40-80) 06/19/17 10:00 Lymphocytes 16 % (20-50) L 06/19/17 10:00 Monocytes 24 % (2-10) H 06/19/17 10:00 Eosinophils 2 % (0-5) 06/19/17 10:00 Basophils 0 % (0-3) 06/14/17 05:00 Metamyelocytes 2 % (0-0) H 06/13/17 07:20 Myelocytes 1 % 06/13/17 07:20 Nucleated RBCs 1.0 % (0-0) H 06/08/17 04:59 Platelet Estimate DECREASED PLATELETS (NORMAL) 06/19/17 10:00 Platelet Morphology PLATELET CLUMPS SEEN (NORMAL) 06/19/17 10:00 Polychromasia 1+ 06/18/17 04:59 Anisocytosis 1+ 06/19/17 10:00 RBC Morph Micro Appear ABNORMAL (NORMAL) 06/19/17 10:00 Specimen Source ARTERIAL 06/10/17 08:43 Sample Site Left Radial 06/10/17 08:43 pH 7.46 (7.35-7.45) H 06/10/17 08:43 pCO2 36.0 mmHg (35.0-45.0) 06/10/17 08:43 pO2 92.0 mmHg (80.0-100.0) 06/10/17 08:43 HCO3 26.4 mEq/L (20.0-26.0) H 06/10/17 08:43 Base Excess 1.9 mEq/L (-3.0-3.0) 06/10/17 08:43 O2 Saturation 98.0 % (92.0-100.0) 06/10/17 08:43 Jose L Test POSITIVE 06/10/17 08:43 Vent Rate 12 06/10/17 08:43 Inspired O2 40 06/10/17 08:43 Tidal Volume 500 06/10/17 08:43 PEEP 5 06/10/17 08:43 Pressure (ins/psv/peep) N/A 06/10/17 08:43 Critical Value SAURABH 06/10/17 08:43 Sodium 143 mEq/L (136-145) 06/18/17 04:59 Potassium 3.7 mEq/L (3.5-5.1) 06/18/17 04:59 Chloride 114 mEq/L (98-107) H 06/18/17 04:59 Carbon Dioxide 26.4 mEq/L (21.0-31.0) 06/18/17 04:59 Anion Gap 6.3 (7.0-16.0) L 06/18/17 04:59 BUN 19 mg/dL (7-25) 06/18/17 04:59 Creatinine 0.5 mg/dL (0.7-1.3) L 06/18/17 04:59 Est GFR ( Amer) > 60.0 ml/min (>90) 06/18/17 04:59 Est GFR (Non-Af Amer) > 60.0 ml/min 06/18/17 04:59 BUN/Creatinine Ratio 38.0 06/18/17 04:59 Glucose 106 mg/dL (70-105) H 06/18/17 04:59 Plasma/Ser Osmolality 313 mOsmol/kg (275-295) H 06/09/17 05:07 Whole Bld Lactic Acid 1.51 mmol/L (0.60-1.99) 06/08/17 04:59 Calcium 10.0 mg/dL (8.6-10.3) 06/18/17 04:59 Phosphorus 2.7 mg/dL (2.5-5.0) 06/08/17 04:59 Magnesium 1.6 mg/dL (1.9-2.7) L 06/14/17 05:00 Iron 71 ug/dL (38-169) 06/08/17 04:59 TIBC 173 ug/dL (250-450) L 06/08/17 04:59 Iron Saturation 41 % (15-55) 06/08/17 04:59 Unsaturated IBC 102 ug/dL (111-343) L 06/08/17 04:59 Ferritin 303 ng/mL (30-400) 06/08/17 04:59 Total Bilirubin 1.0 mg/dL (0.3-1.0) 06/16/17 04:40 Direct Bilirubin 0.29 mg/dL (0.0-0.2) H 06/16/17 04:40 AST 28 U/L (13-39) 06/16/17 04:40 ALT 13 U/L (7-52) 06/16/17 04:40 Alkaline Phosphatase 184 U/L (34-104) H 06/16/17 04:40 Ammonia 84 umol/L (16-53) H 06/17/17 07:00 Troponin I 0.01 ng/mL (0.01-0.05) 06/07/17 13:28 B-Natriuretic Peptide 91.8 pg/mL (5.0-100.0) 06/07/17 13:28 Total Protein 7.8 gm/dL (6.0-8.3) 06/16/17 04:40 Albumin 2.6 gm/dL (4.2-5.5) L 06/16/17 04:40 Globulin 5.2 gm/dL 06/16/17 04:40 Albumin/Globulin Ratio 0.5 (1.0-1.8) L 06/16/17 04:40 Vitamin B12 >1999 pg/mL (211-946) H 06/08/17 04:59 Folic Acid >20.0 ng/mL (>3.0) 06/08/17 04:59 Urine Source RANDOM 06/07/17 13:25 Urine Color NISA 06/07/17 13:25 Urine Clarity CLOUDY (CLEAR) 06/07/17 13:25 Urine pH 5.5 (4.6 - 8.0) 06/07/17 13:25 Ur Specific [place] 1.020 (1.005-1.030) 06/07/17 13:25 Urine Protein >=300 mg/dL (NEGATIVE) 06/07/17 13:25 Urine Glucose (UA) NEGATIVE mg/dL (NEGATIVE) 06/07/17 13:25 Urine Ketones 15 mg/dL (NEGATIVE) H 06/07/17 13:25 Urine Blood LARGE (NEGATIVE) H 06/07/17 13:25 Urine Nitrate POSITIVE (NEGATIVE) H 06/07/17 13:25 Urine Bilirubin MODERATE (NEGATIVE) H 06/07/17 13:25 Urine Urobilinogen 2.0 E.U./dL (0.2 - 1.0) 06/07/17 13:25 Ur Leukocyte Esterase MODERATE (NEGATIVE) H 06/07/17 13:25 Urine RBC >100 /hpf (0-5) H 06/07/17 13:25 Urine WBC 2-5 /hpf (0-5) H 06/07/17 13:25 Ur Epithelial Cells OCCASIONAL /lpf (FEW) 06/07/17 13:25 Urine Bacteria FEW /hpf (NONE SEEN) 06/07/17 13:25 Urine Osmolality 776 mOsmol/kg 06/09/17 05:53 Ur Random Sodium 119 mmol/L 06/08/17 18:16 Stool Occult Blood NEGATIVE (NEGATIVE) 06/12/17 17:30 Vancomycin Trough 17.9 ug/mL (10-20) 06/20/17 09:35 Blood Type O POSITIVE 06/09/17 09:30 Antibody Screen NEGATIVE 06/09/17 09:30 - Physical Exam Vitals and I&O: Vital Signs Temp 96.8 F 06/20/17 12:00 Pulse 76 06/20/17 14:04 Resp 14 06/20/17 14:00 BP 112/57 06/20/17 14:04 Pulse Ox 99 06/20/17 14:00 Intake & Output 06/19/17 06/20/17 06/20/17 18:59 06:59 18:59 Intake Total 1550 1050 450 Output Total 850 1200 Balance 700 -150 450 Weight (lbs) 81.647 kg 80.785 kg 80.739 kg Intake: Intake, IV Amount 700 450 450 Colistimethate 150 mg In 100 100 Sodium Chloride 0.9% 100 ml @ 100 mls/hr IV Q12HR [facility] Rx#:[id number] Meropenem 1 gm In Sodium 100 100 100 Chloride 0.9% 100 ml @ 100 mls/hr IV Q12H [facility] Rx #:[id number] Vancomycin HCl 1.25 gm In 500 250 250 Sodium Chloride 0.9% 250 ml @ 165 mls/hr IV Q12H [facility] Rx#:[id number] Tube Feeding 600 600 Other 250 Output: Urine 550 500 Stool 300 700 Other: # Bowel Movements 1 Stool Characteristics Liquid Liquid Liquid Brown Active Medications: Current Medications Albuterol/Ipratropium (Duoneb Neb) 3 ml HHN Q4HRT [facility] Stop: 08/07/17 18:59 Last Admin: 06/20/17 11:47 Dose: 3 ml Amlodipine Besylate (Norvasc) 5 mg GT Q12HR [place] Stop: 08/06/17 20:59 Last Admin: 06/20/17 09:06 Dose: Not Given Artificial Tears (Artificial Tears Ophth Soln) 2 drop EACH EYE Q6H PRN PRN Reason: eye dryness Stop: 08/06/17 20:54 Last Admin: 06/16/17 09:32 Dose: 2 drop Atorvastatin Calcium (Lipitor) 10 mg GT HS [place] PRN Reason: Protocol Stop: 08/06/17 20:59 Last Admin: 06/19/17 20:10 Dose: 10 mg Bisacodyl (Dulcolax 10 Mg Supp) 10 mg RC DAILY PRN PRN Reason: Constipation Stop: 08/06/17 19:17 Budesonide (Pulmicort) 0.5 mg HHN BIDRT [place] Stop: 08/07/17 18:59 Last Admin: 06/20/17 06:51 Dose: 0.5 mg Calcium/Vitamin D (Oscal W/Vitamin D) 1 tab GT DAILY [place] Stop: 08/07/17 08:59 Last Admin: 06/20/17 09:06 Dose: 1 tab Chlorhexidine Gluconate (Peridex) 15 ml MM 0800,1999 [place] Stop: 08/08/17 19:59 Last Admin: 06/20/17 08:00 Dose: 15 ml Folic Acid (Folate) 2.5 mg GT DAILY [place] Stop: 08/07/17 08:59 Last Admin: 06/20/17 09:06 Dose: 2.5 mg Hydralazine HCl (Apresoline) 50 mg GT Q8HR [place] Stop: 08/06/17 20:59 Last Admin: 06/20/17 13:01 Dose: 50 mg Meropenem 1 gm/ Sodium (Chloride) 100 mls @ 100 mls/hr IV Q12H [place] Stop: 08/13/17 08:59 Last Infusion: 06/20/17 10:40 Dose: Infused Vancomycin HCl 1.25 gm/ Sodium (Chloride) 250 mls @ 165 mls/hr IV Q12H [place] Stop: 08/15/17 09:59 Last Infusion: 06/20/17 12:11 Dose: Infused Colistimethate Sodium 150 mg/ (Sodium Chloride) 100 mls @ 100 mls/hr IV Q12HR [place] Stop: 08/18/17 20:59 Last Infusion: 06/20/17 09:20 Dose: Infused Lactobacillus Rhamnosus (Culturelle) 1 each PO DAILY [place] Stop: 08/08/17 08:59 Last Admin: 06/20/17 09:06 Dose: 1 each Lactulose (Cephulac) 30 gm GT Q6HR [place] Stop: 08/08/17 17:59 Last Admin: 06/20/17 11:47 Dose: 30 gm Levetiracetam (Keppra) 1,000 mg GT Q8HR [place] Stop: 08/06/17 20:59 Last Admin: 06/20/17 13:01 Dose: 1,000 mg Lorazepam (Ativan) 1 mg IVP Q6H PRN; Protocol PRN Reason: Agitation Stop: 08/13/17 23:17 Last Admin: 06/20/17 08:48 Dose: 1 mg Magnesium Hydroxide (Milk Of Magnesia) 30 ml GT HS PRN PRN Reason: Constipation Stop: 08/06/17 19:17 Magnesium Oxide (Mag-Oxide) 400 mg GT DAILY [place] Stop: 08/07/17 08:59 Last Admin: 06/20/17 09:06 Dose: 400 mg Metoprolol Tartrate (Lopressor) 100 mg GT Q12HR [facility] Stop: 08/06/17 20:59 Last Admin: 06/20/17 09:06 Dose: Not Given Miscellaneous (Vancomycin Iv Per Pharmacy) 1 ea PRN PRN PRN Reason: PROTOCOL Stop: 08/07/17 07:59 Miscellaneous (Probiotic Screen) 1 ea PRN PRN PRN Reason: PROTOCOL Stop: 08/07/17 10:42 Phytonadione (Mephyton) 10 mg GT DAILY [facility] Stop: 08/07/17 19:59 Last Admin: 06/20/17 09:05 Dose: 10 mg Potassium Chloride (Potassium Chloride Elixir) 20 meq GT TID [facility] Stop: 08/12/17 13:59 Last Admin: 06/20/17 14:03 Dose: 20 meq Propranolol HCl (Inderal) 20 mg GT TID [facility] Stop: 08/06/17 20:59 Last Admin: 06/20/17 14:04 Dose: 20 mg Pyridoxine HCl (Vitamin B6) 100 mg GT DAILY [facility] Stop: 08/07/17 08:59 Last Admin: 06/20/17 09:05 Dose: 100 mg Sodium Phosphate (Fleet Enema) 135 ml RC Q48H PRN PRN Reason: IF DULCOLAX IS INEFFECTIVE Stop: 08/06/17 19:17 Thiamine HCl (Vitamin B1) 100 mg GT DAILY [facility] Stop: 08/07/17 08:59 Last Admin: 06/20/17 09:06 Dose: 100 mg Valproate Sodium (Depakene) 500 mg GT TID [place] PRN Reason: Protocol Stop: 08/06/17 20:59 Last Admin: 06/20/17 14:04 Dose: 500 mg General: Alert, No acute distress HEENT: Atraumatic, PERRLA, EOMI, Mucous membr. moist/pink Neck: Supple, +2 carotid pulse wo bruit Cardiovascular: Regular rate, Normal S1, Normal S2 Lungs: Clear to auscultation, Other (tracheostomy) Abdomen: Bowel sounds, Soft, Other (gastric tube and rectal tube) Extremities: no Edema Neurological: Sensation intact Skin: no Rash Psych/Mental Status: Mood NL - Procedures Procedures: Procedures Procedure Code Date RESPIRATORY VENTILATION, GREATER THAN 96 CONSECUTIVE HOURS [id number] 06/07/17 Assessment/Plan - Problem List Patient Problems: All Active Problems ELEVATED NA+, AND BUN LEVELS (Acute) - Assessment Assessment: * SPLENOMEGALY. * THROMBOCYTOPENIA. Fluctuating, S/P TX * RESPIRATORY FAILURE. * ANEMIA OF CHRONIC DISEASE. stool OB not done. reorder no need for tx Nutritional Asmnt/Malnutr-PDOC - Dietary Evaluation Malnutrition Findings (Please click <Entered> for more info): Nutritional Asmnt/Malnutrition Start: 06/09/17 11: 00 Text: Status: Complete Freq: Document 06/09/17 13:09 [facility] (Rec: 06/09/17 13:27 [facility] [id number]) Nutritional Asmnt/Malnutrition Patient General Information Nutritional Screening High Risk Screening Diagnosis Sepsis, UTI, right and left lower lobe infiltrate, pneumonia Pertinent Medical Hx/Surgical Hx Alcohol problem, liver disease , cirrhosis of the liver, hepatic comas, seizures, trachestomy, PEG, asthma, COPD Subjective Information Pt is a 52-year-old male from [facility] admitted with chief complaint of shortness of breath and falling oxygen saturation. Pt has tracheostomy to ventilator. Pt was unable to provide nutritional hx. Pt appears well nourished with no signs of muscle or fat depletion. Order to resume tube feeding; bag of Novosource Renal at bedside not yet started. Abdomen Ultrasound 06/09 notes some abdominal ascites. Current Diet Order/ Nutrition Support Novosource Renal at 55 ml/hr = 2640kcals, 120gm protein, 946ml free water Patient / S.O Can't verbalize diet edu Pertinent Medications Oscal with Vitamin D, Cefepime , D5w, Iron, Folate, Culturelle, MagOxide, Mephyton , KCl Elixir, Vitamin B6, Vitamin B1, Depakene, Vancomycin Pertinent Labs (06/09) Na 148H (improving), K 3L, Alkaline Phosphatase 171H, Ammonia 64H, Albumin 3.3L Nutritional Hx/Data Height 1.68 m Height (Calculated Centimeters) 167.6 Current Weight (lbs) 76.657 kg Weight (Calculated Kilograms) 76.7 Weight (Calculated Grams) 46122.1 Usual body Weight (lbs) 168 % Usual Body Weight 100 [place] Body Weight 142 % [place] Body Weight 119 Recent Weight Change No Weight Status Overweight GI Symptoms GI Symptoms Diarrhea Difficult in: Chewing Swallowing Food Allergies No Usual diet at home Nepro 1.8 (237 ml) QID 0900, 1300, 1700, 2100, sugar free ProStat 30 ml Skin Integrity/Comment: Vitor 12. Skin intact. Estimated Nutritional Goals BEE in Kcals: Using Current wt Calories/Kcals/Kg Based on current wt 76.8 kg with consideration of sepsis: Kcals Calculated 8925-6152 kcals/day (27-32 kcals/kg) to prevent wt gain with overwt status Protein: Using Current wt Protein g/kg: Based on current wt 76.8 kg with consideration of sepsis: Protein Calculated 92-115 gm/day (1.2-1.5 gm/kg) Fluid: ml Per MD/DO due to abnormal electrolytes Nutritional Problem 1. Problem Problem Excessive intake from enteral nutrition related to Etiology increased energy intake from calorically dense tube feeding formula as evidenced by Signs/Symptoms: current tube feeding meets 104 % of higher end of estimated calories needs. Malnutrition Alert Protein-Calorie Malnutrition N/A Is there a minimum of two criteria No selected? Query Text:Check all the applicable criteria. A minimum of two criteria are recommended for diagnosis of either severe or non-severe malnutrition. Malnutrition Related to Morbid Obesity Malnutrition related to morbid obesity No Intervention/Recommendation Recommendations by RD Decrease Calorie Intake Comments 1. Recommend decrease tube feeding Novosource Renal at goal rate of 50 ml/hr to provide 2400 kcals, 109 gm protein, and 860 ml free water per day. Monitor renal labs to prioritize protein needs. Expected Outcomes/Goals Expected Outcomes/Goals Provide pt with 100% of estimated nutritional needs. Physician Parameters for PEM Serum Albumin (g/dl) 3.1 - 3.4 (Mild)
[2017-06-20] MEDS: Atorvastatin Calcium 10 MG TAB GT SCH (20:35)
[2017-06-21] MEDS: Lactulose 10 Gm/15 mL 30mL UDC GT SCH ×5 (00:19→23:15)
[2017-06-21] MEDS: Albuterol/Ipratropium Neb 3 ML AERS HHN SCH ×6 (04:00→22:51)
[2017-06-21 05:26] LABS: HEMATOCRIT 28.5 % (39.0-49.0); HEMOGLOBIN 9.8 gm/dL (13.2-17.3); MEAN CELL VOLUME 95.4 fl (80-99); MEAN CORPUSCULAR HEMOGLOBIN 32.8 pg (26.0-30.0); MEAN CORPUSCULAR HGB CONC 34.4 pg (28.0-36.0); MEAN PLATELET VOLUME 9.7 fl; RED BLOOD COUNT 2.99 Mil/cmm (4.30-5.70); RED CELL DISTRIBUTION WIDTH 14.9 % (11.5-20.0)
[2017-06-21] MEDS: Levetiracetam 500 mg/5mL 5mL UDC GT SCH ×3 (05:27→20:07)
[2017-06-21] MEDS: Budesonide 0.5 Mg/2 mL Ud HHN SCH ×2 (07:03→19:23)
[2017-06-21 07:20] LABS: PLATELET COUNT 47 Th/cmm (150-400); WHITE BLOOD COUNT 4.2 Th/cmm (4.8-10.8)
[2017-06-21 08:37] LABS: ANISOCYTOSIS 1+; BAND NEUTROPHILE 3 % (0-10); EOSINOPHIL 6 % (0-5); NEUTROPHILS 44 % (40-80); PLATELET ESTIMATE DECREASED PLATELETS (NORMAL); TOTAL CELLS COUNTED 100
[2017-06-21 08:39] LABS: PLATELET MORPHOLOGY PLATELET CLUMPS SEEN (NORMAL)
[2017-06-21] MEDS: Potassium Chloride Elixir 20 mEq /15 mL UDC GT SCH ×3 (08:55→20:07)
[2017-06-21] MEDS: Calcium Carb/Vit D 500 mg/200 U Tab GT SCH (08:56)
[2017-06-21] MEDS: Lactobacillus Rhamnosus 10 Billion CFU Capsule PO SCH (08:56)
[2017-06-21] MEDS: Chlorhexidine Gluconate 0.12% 15mL Mouthwash MM SCH ×2 (08:58→20:00)
--- NOTE | 2017-06-21 13:22 | Progress Notes ---
DATE: 06/20/2017 PROBLEM LIST: 1. Persistent respiratory failure. 2. Pneumonia, improving left-sided effusion, better. 3. Encephalopathic status secondary to hepatic. 4. History of electrolyte imbalance. SYMPTOMS: Nil. Occasionally respond to verbal stimuli, but no respiratory distress, etc. still periodic, agitated, restless, etc. PHYSICAL EXAMINATION: VITAL SIGNS: Temperature is 96.8, blood pressure 113/58, saturation 100% on 30% ____. NECK: Veins not visualized. Good bilateral carotid upstroke. CHEST: Shows clear with diminished air entry in the left base. HEART: Regular. ABDOMEN: Soft, nontender. LABORATORY DATA: White count is 5.7, and platelet is 88. ASSESSMENT: The patient is clinically optimally stable. PLANS AND SUGGESTIONS: We will go ahead and continue current treatment. Follow through chest x-ray in the next few days, pending his discharge plans. JOB# [id number]
--- NOTE | 2017-06-21 15:51 | Progress Notes ---
DATE: 06/21/2017 SUBJECTIVE: The patient was seen in his room, lying on the bed. The patient is a poor historian due to medical condition. Otherwise, the patient appears to be comfortable in no acute distress. OBJECTIVE: VITAL SIGNS: Temperature 97.6, heart rate of 73, blood pressure 104/65, respirations of 20, 99% saturation. HEENT: Head is atraumatic and normocephalic. Eyes: Bilateral conjunctivae are clear. Bilateral pupils are equally round and reactive. NECK: Supple. No JVD. CARDIOVASCULAR: S1 and S2, without murmur. RESPIRATORY: Fine scattered rhonchi noted. Positive tracheostomy connected to ventilator. GASTROINTESTINAL: Soft and nontender without guarding. Positive bowel sounds. MUSCULOSKELETAL: No edema, no clubbing, no cyanosis noted. ASSESSMENT: 1. Gastrostomy tube malfunction. 2. Liver cirrhosis. 3. Pneumonia. 4. Ventilator dependent respiratory failure. 5. Anemia. 6. Sepsis. 7. Encephalopathy. PLAN: We will continue to monitor the patient's condition. We will keep the patient in the intensive care unit. We will follow up with the consultants to monitor the patient's condition and behavior. Treatment plans were discussed with Dr. Ren. Treatment plans were discussed with the patient's nurse. [facility]# [id number]
--- NOTE | 2017-06-21 16:58 | General Progress Note ---
Subjective - Review of Systems Service Date: 06/21/17 Subjective: awake, non communicative Objective - Results Result Diagrams: 06/21/17 04:38 06/18/17 04:59 Recent Labs: Laboratory Last Values WBC 4.2 Th/cmm (4.8-10.8) L D 06/21/17 04:38 RBC 2.99 Mil/cmm (4.30-5.70) L 06/21/17 04:38 Hgb 9.8 gm/dL (13.2-17.3) L 06/21/17 04:38 Hct 28.5 % (39.0-49.0) L 06/21/17 04:38 MCV 95.4 fl (80-99) 06/21/17 04:38 MCH 32.8 pg (26.0-30.0) H 06/21/17 04:38 MCHC Differential 34.4 pg (28.0-36.0) 06/21/17 04:38 RDW 14.9 % (11.5-20.0) 06/21/17 04:38 Plt Count 47 Th/cmm (150-400) L D 06/21/17 04:38 MPV 9.7 fl 06/21/17 04:38 Neutrophils % 50.2 % (40.0-80.0) 06/15/17 04:30 Band Neutrophils % 3 % (0-10) 06/21/17 04:38 Lymphocytes % 22.2 % (20.0-50.0) 06/15/17 04:30 Monocytes % 24.6 % (2.0-10.0) H 06/15/17 04:30 Eosinophils % 2.9 % (0.0-5.0) 06/15/17 04:30 Basophils % 0.3 % (0.0-2.0) 06/10/17 04:40 Neutrophils (Manual) 44 % (40-80) 06/21/17 04:38 Lymphocytes 30 % (20-50) 06/21/17 04:38 Monocytes 17 % (2-10) H 06/21/17 04:38 Eosinophils 6 % (0-5) H 06/21/17 04:38 Basophils 0 % (0-3) 06/14/17 05:00 Metamyelocytes 2 % (0-0) H 06/13/17 07:20 Myelocytes 1 % 06/13/17 07:20 Nucleated RBCs 1.0 % (0-0) H 06/08/17 04:59 Platelet Estimate DECREASED PLATELETS (NORMAL) 06/21/17 04:38 Platelet Morphology PLATELET CLUMPS SEEN (NORMAL) 06/21/17 04:38 Polychromasia 1+ 06/18/17 04:59 Anisocytosis 1+ 06/21/17 04:38 RBC Morph Micro Appear ABNORMAL (NORMAL) 06/21/17 04:38 Specimen Source ARTERIAL 06/10/17 08:43 Sample Site Left Radial 06/10/17 08:43 pH 7.46 (7.35-7.45) H 06/10/17 08:43 pCO2 36.0 mmHg (35.0-45.0) 06/10/17 08:43 pO2 92.0 mmHg (80.0-100.0) 06/10/17 08:43 HCO3 26.4 mEq/L (20.0-26.0) H 06/10/17 08:43 Base Excess 1.9 mEq/L (-3.0-3.0) 06/10/17 08:43 O2 Saturation 98.0 % (92.0-100.0) 06/10/17 08:43 Jose L Test POSITIVE 06/10/17 08:43 Vent Rate 12 06/10/17 08:43 Inspired O2 40 06/10/17 08:43 Tidal Volume 500 06/10/17 08:43 PEEP 5 06/10/17 08:43 Pressure (ins/psv/peep) N/A 06/10/17 08:43 Critical Value SAURABH 06/10/17 08:43 Sodium 143 mEq/L (136-145) 06/18/17 04:59 Potassium 3.7 mEq/L (3.5-5.1) 06/18/17 04:59 Chloride 114 mEq/L (98-107) H 06/18/17 04:59 Carbon Dioxide 26.4 mEq/L (21.0-31.0) 06/18/17 04:59 Anion Gap 6.3 (7.0-16.0) L 06/18/17 04:59 BUN 19 mg/dL (7-25) 06/18/17 04:59 Creatinine 0.5 mg/dL (0.7-1.3) L 06/18/17 04:59 Est GFR ( Amer) > 60.0 ml/min (>90) 06/18/17 04:59 Est GFR (Non-Af Amer) > 60.0 ml/min 06/18/17 04:59 BUN/Creatinine Ratio 38.0 06/18/17 04:59 Glucose 106 mg/dL (70-105) H 06/18/17 04:59 Plasma/Ser Osmolality 313 mOsmol/kg (275-295) H 06/09/17 05:07 Whole Bld Lactic Acid 1.51 mmol/L (0.60-1.99) 06/08/17 04:59 Calcium 10.0 mg/dL (8.6-10.3) 06/18/17 04:59 Phosphorus 2.7 mg/dL (2.5-5.0) 06/08/17 04:59 Magnesium 1.6 mg/dL (1.9-2.7) L 06/14/17 05:00 Iron 71 ug/dL (38-169) 06/08/17 04:59 TIBC 173 ug/dL (250-450) L 06/08/17 04:59 Iron Saturation 41 % (15-55) 06/08/17 04:59 Unsaturated IBC 102 ug/dL (111-343) L 06/08/17 04:59 Ferritin 303 ng/mL (30-400) 06/08/17 04:59 Total Bilirubin 1.0 mg/dL (0.3-1.0) 06/16/17 04:40 Direct Bilirubin 0.29 mg/dL (0.0-0.2) H 06/16/17 04:40 AST 28 U/L (13-39) 06/16/17 04:40 ALT 13 U/L (7-52) 06/16/17 04:40 Alkaline Phosphatase 184 U/L (34-104) H 06/16/17 04:40 Ammonia 84 umol/L (16-53) H 06/17/17 07:00 Troponin I 0.01 ng/mL (0.01-0.05) 06/07/17 13:28 B-Natriuretic Peptide 91.8 pg/mL (5.0-100.0) 06/07/17 13:28 Total Protein 7.8 gm/dL (6.0-8.3) 06/16/17 04:40 Albumin 2.6 gm/dL (4.2-5.5) L 06/16/17 04:40 Globulin 5.2 gm/dL 06/16/17 04:40 Albumin/Globulin Ratio 0.5 (1.0-1.8) L 06/16/17 04:40 Vitamin B12 >1999 pg/mL (211-946) H 06/08/17 04:59 Folic Acid >20.0 ng/mL (>3.0) 06/08/17 04:59 Urine Source RANDOM 06/07/17 13:25 Urine Color NISA 06/07/17 13:25 Urine Clarity CLOUDY (CLEAR) 06/07/17 13:25 Urine pH 5.5 (4.6 - 8.0) 06/07/17 13:25 Ur Specific [place] 1.020 (1.005-1.030) 06/07/17 13:25 Urine Protein >=300 mg/dL (NEGATIVE) 06/07/17 13:25 Urine Glucose (UA) NEGATIVE mg/dL (NEGATIVE) 06/07/17 13:25 Urine Ketones 15 mg/dL (NEGATIVE) H 06/07/17 13:25 Urine Blood LARGE (NEGATIVE) H 06/07/17 13:25 Urine Nitrate POSITIVE (NEGATIVE) H 06/07/17 13:25 Urine Bilirubin MODERATE (NEGATIVE) H 06/07/17 13:25 Urine Urobilinogen 2.0 E.U./dL (0.2 - 1.0) 06/07/17 13:25 Ur Leukocyte Esterase MODERATE (NEGATIVE) H 06/07/17 13:25 Urine RBC >100 /hpf (0-5) H 06/07/17 13:25 Urine WBC 2-5 /hpf (0-5) H 06/07/17 13:25 Ur Epithelial Cells OCCASIONAL /lpf (FEW) 06/07/17 13:25 Urine Bacteria FEW /hpf (NONE SEEN) 06/07/17 13:25 Urine Osmolality 776 mOsmol/kg 06/09/17 05:53 Ur Random Sodium 119 mmol/L 06/08/17 18:16 Stool Occult Blood NEGATIVE (NEGATIVE) 06/12/17 17:30 Vancomycin Trough 17.9 ug/mL (10-20) 06/20/17 09:35 Blood Type O POSITIVE 06/09/17 09:30 Antibody Screen NEGATIVE 06/09/17 09:30 - Physical Exam Vitals and I&O: Vital Signs Temp 97.5 F 06/21/17 16:00 Pulse 80 06/21/17 16:00 Resp 14 06/21/17 16:00 BP 104/56 06/21/17 16:00 Pulse Ox 97 06/21/17 16:00 Intake & Output 06/20/17 06/21/17 06/21/17 18:59 06:59 18:59 Intake Total 1250 1250 450 Output Total 1250 1000 Balance 0 250 450 Weight (lbs) 80.739 kg 82.185 kg Intake: Intake, IV Amount 450 450 450 Colistimethate 150 mg In 100 100 100 Sodium Chloride 0.9% 100 ml @ 100 mls/hr IV Q12HR [facility] Rx#:[id number] Meropenem 1 gm In Sodium 100 100 100 Chloride 0.9% 100 ml @ 100 mls/hr IV Q12H [facility] Rx #:[id number] Vancomycin HCl 1.25 gm In 250 250 250 Sodium Chloride 0.9% 250 ml @ 165 mls/hr IV Q12H [facility] Rx#:[id number] Tube Feeding 600 600 Other 200 200 Output: Urine 550 800 Stool 400 200 Other 300 Other: # Bowel Movements 1 Stool Characteristics Liquid Liquid Liquid Brown Brown Brown Active Medications: Current Medications Albuterol/Ipratropium (Duoneb Neb) 3 ml HHN Q4HRT [facility] Stop: 08/07/17 18:59 Last Admin: 06/21/17 15:19 Dose: 3 ml Amlodipine Besylate (Norvasc) 5 mg GT Q12HR [facility] Stop: 08/06/17 20:59 Last Admin: 06/21/17 08:58 Dose: Not Given Artificial Tears (Artificial Tears Ophth Soln) 2 drop EACH EYE Q6H PRN PRN Reason: eye dryness Stop: 08/06/17 20:54 Last Admin: 06/16/17 09:32 Dose: 2 drop Atorvastatin Calcium (Lipitor) 10 mg GT HS [place] PRN Reason: Protocol Stop: 08/06/17 20:59 Last Admin: 06/20/17 20:35 Dose: 10 mg Bisacodyl (Dulcolax 10 Mg Supp) 10 mg RC DAILY PRN PRN Reason: Constipation Stop: 08/06/17 19:17 Budesonide (Pulmicort) 0.5 mg HHN BIDRT [place] Stop: 08/07/17 18:59 Last Admin: 06/21/17 07:03 Dose: 0.5 mg Calcium/Vitamin D (Oscal W/Vitamin D) 1 tab GT DAILY [place] Stop: 08/07/17 08:59 Last Admin: 06/21/17 08:56 Dose: 1 tab Chlorhexidine Gluconate (Peridex) 15 ml MM 0800,1999 [place] Stop: 08/08/17 19:59 Last Admin: 06/21/17 08:58 Dose: 15 ml Clonazepam (Klonopin) 2 mg GT DAILY [place] PRN Reason: Protocol Stop: 08/20/17 13:44 Last Admin: 06/21/17 14:33 Dose: 2 mg Folic Acid (Folate) 2.5 mg GT DAILY [place] Stop: 08/07/17 08:59 Last Admin: 06/21/17 08:56 Dose: 2.5 mg Hydralazine HCl (Apresoline) 50 mg GT Q8HR [place] Stop: 08/06/17 20:59 Last Admin: 06/21/17 13:09 Dose: 50 mg Meropenem 1 gm/ Sodium (Chloride) 100 mls @ 100 mls/hr IV Q12H [place] Stop: 08/13/17 08:59 Last Infusion: 06/21/17 09:10 Dose: Infused Vancomycin HCl 1.25 gm/ Sodium (Chloride) 250 mls @ 165 mls/hr IV Q12H [place] Stop: 08/15/17 09:59 Last Infusion: 06/21/17 11:45 Dose: Infused Colistimethate Sodium 150 mg/ (Sodium Chloride) 100 mls @ 100 mls/hr IV Q12HR [place] Stop: 08/18/17 20:59 Last Infusion: 06/21/17 10:00 Dose: Infused Lactobacillus Rhamnosus (Culturelle) 1 each PO DAILY [place] Stop: 08/08/17 08:59 Last Admin: 06/21/17 08:56 Dose: 1 each Lactulose (Cephulac) 30 gm GT Q6HR [place] Stop: 08/08/17 17:59 Last Admin: 06/21/17 11:18 Dose: 30 gm Levetiracetam (Keppra) 1,000 mg GT Q8HR [place] Stop: 08/06/17 20:59 Last Admin: 06/21/17 13:09 Dose: 1,000 mg Lorazepam (Ativan) 1 mg IVP Q6H PRN; Protocol PRN Reason: Agitation Stop: 08/13/17 23:17 Last Admin: 06/21/17 09:05 Dose: 1 mg Magnesium Hydroxide (Milk Of Magnesia) 30 ml GT HS PRN PRN Reason: Constipation Stop: 08/06/17 19:17 Magnesium Oxide (Mag-Oxide) 400 mg GT DAILY [place] Stop: 08/07/17 08:59 Last Admin: 06/21/17 08:56 Dose: 400 mg Metoprolol Tartrate (Lopressor) 100 mg GT Q12HR [place] Stop: 08/06/17 20:59 Last Admin: 06/21/17 08:57 Dose: Not Given Miscellaneous (Probiotic Screen) 1 ea PRN PRN PRN Reason: PROTOCOL Stop: 08/07/17 10:42 Miscellaneous (Vancomycin Iv Per Pharmacy) 1 ea PRN PRN PRN Reason: VANCO PER RX Stop: 08/20/17 13:12 Phytonadione (Mephyton) 10 mg GT DAILY [place] Stop: 08/07/17 19:59 Last Admin: 06/21/17 08:57 Dose: 10 mg Potassium Chloride (Potassium Chloride Elixir) 20 meq GT TID [place] Stop: 08/12/17 13:59 Last Admin: 06/21/17 13:10 Dose: 20 meq Propranolol HCl (Inderal) 20 mg GT TID [place] Stop: 08/06/17 20:59 Last Admin: 06/21/17 13:10 Dose: 20 mg Pyridoxine HCl (Vitamin B6) 100 mg GT DAILY [place] Stop: 08/07/17 08:59 Last Admin: 06/21/17 08:55 Dose: 100 mg Sodium Phosphate (Fleet Enema) 135 ml RC Q48H PRN PRN Reason: IF DULCOLAX IS INEFFECTIVE Stop: 08/06/17 19:17 Temazepam (Restoril) 15 mg GT HS PRN; Protocol PRN Reason: Insomnia Stop: 08/19/17 19:18 Last Admin: 06/20/17 20:36 Dose: 15 mg Thiamine HCl (Vitamin B1) 100 mg GT DAILY [facility] Stop: 08/07/17 08:59 Last Admin: 06/21/17 08:56 Dose: 100 mg Valproate Sodium (Depakene) 500 mg GT TID [facility] PRN Reason: Protocol Stop: 08/06/17 20:59 Last Admin: 06/21/17 13:10 Dose: 500 mg General: Alert, No acute distress HEENT: Atraumatic, PERRLA, EOMI, Mucous membr. moist/pink, Other (tracheostomy) Neck: Supple, +2 carotid pulse wo bruit, Other (tracheostomy) Cardiovascular: Regular rate, Normal S1, Normal S2 Lungs: Clear to auscultation, Other (tracheostomy) Abdomen: Bowel sounds, Soft, Other (gastric tube and rectal tube) Extremities: no Edema Neurological: Sensation intact Skin: no Rash Psych/Mental Status: Mood NL - Procedures Procedures: Procedures Procedure Code Date RESPIRATORY VENTILATION, GREATER THAN 96 CONSECUTIVE HOURS [id number] 06/07/17 Assessment/Plan - Problem List Patient Problems: All Active Problems ELEVATED NA+, AND BUN LEVELS (Acute) - Assessment Assessment: * SPLENOMEGALY. * THROMBOCYTOPENIA. Fluctuating, S/P TX * RESPIRATORY FAILURE. * ANEMIA OF CHRONIC DISEASE. stool OB not done. reorder no need for tx Nutritional Asmnt/Malnutr-PDOC - Dietary Evaluation Malnutrition Findings (Please click <Entered> for more info): Nutritional Asmnt/Malnutrition Start: 06/09/17 11: 00 Text: Status: Complete Freq: Document 06/09/17 13:09 [facility] (Rec: 06/09/17 13:27 [facility] [id number]) Nutritional Asmnt/Malnutrition Patient General Information Nutritional Screening High Risk Screening Diagnosis Sepsis, UTI, right and left lower lobe infiltrate, pneumonia Pertinent Medical Hx/Surgical Hx Alcohol problem, liver disease , cirrhosis of the liver, hepatic comas, seizures, trachestomy, PEG, asthma, COPD Subjective Information Pt is a 52-year-old male from [facility] admitted with chief complaint of shortness of breath and falling oxygen saturation. Pt has tracheostomy to ventilator. Pt was unable to provide nutritional hx. Pt appears well nourished with no signs of muscle or fat depletion. Order to resume tube feeding; bag of Novosource Renal at bedside not yet started. Abdomen Ultrasound 06/09 notes some abdominal ascites. Current Diet Order/ Nutrition Support Novosource Renal at 55 ml/hr = 2640kcals, 120gm protein, 946ml free water Patient / S.O Can't verbalize diet edu Pertinent Medications Oscal with Vitamin D, Cefepime , D5w, Iron, Folate, Culturelle, MagOxide, Mephyton , KCl Elixir, Vitamin B6, Vitamin B1, Depakene, Vancomycin Pertinent Labs (06/09) Na 148H (improving), K 3L, Alkaline Phosphatase 171H, Ammonia 64H, Albumin 3.3L Nutritional Hx/Data Height 1.68 m Height (Calculated Centimeters) 167.6 Current Weight (lbs) 76.657 kg Weight (Calculated Kilograms) 76.7 Weight (Calculated Grams) 73444.1 Usual body Weight (lbs) 168 % Usual Body Weight 100 [place] Body Weight 142 % [place] Body Weight 119 Recent Weight Change No Weight Status Overweight GI Symptoms GI Symptoms Diarrhea Difficult in: Chewing Swallowing Food Allergies No Usual diet at home Nepro 1.8 (237 ml) QID 0900, 1300, 1700, 2100, sugar free ProStat 30 ml Skin Integrity/Comment: Vitor Thomas. Skin intact. Estimated Nutritional Goals BEE in Kcals: Using Current wt Calories/Kcals/Kg Based on current wt 76.8 kg with consideration of sepsis: Kcals Calculated 7672-7775 kcals/day (27-32 kcals/kg) to prevent wt gain with overwt status Protein: Using Current wt Protein g/kg: Based on current wt 76.8 kg with consideration of sepsis: Protein Calculated 92-115 gm/day (1.2-1.5 gm/kg) Fluid: ml Per MD/DO due to abnormal electrolytes Nutritional Problem 1. Problem Problem Excessive intake from enteral nutrition related to Etiology increased energy intake from calorically dense tube feeding formula as evidenced by Signs/Symptoms: current tube feeding meets 104 % of higher end of estimated calories needs. Malnutrition Alert Protein-Calorie Malnutrition N/A Is there a minimum of two criteria No selected? Query Text:Check all the applicable criteria. A minimum of two criteria are recommended for diagnosis of either severe or non-severe malnutrition. Malnutrition Related to Morbid Obesity Malnutrition related to morbid obesity No Intervention/Recommendation Recommendations by RD Decrease Calorie Intake Comments 1. Recommend decrease tube feeding Novosource Renal at goal rate of 50 ml/hr to provide 2400 kcals, 109 gm protein, and 860 ml free water per day. Monitor renal labs to prioritize protein needs. Expected Outcomes/Goals Expected Outcomes/Goals Provide pt with 100% of estimated nutritional needs. Physician Parameters for PEM Serum Albumin (g/dl) 3.1 - 3.4 (Mild)
[2017-06-21] MEDS: Atorvastatin Calcium 10 MG TAB GT SCH (20:08)
[2017-06-22] MEDS: Albuterol/Ipratropium Neb 3 ML AERS HHN SCH ×6 (03:36→23:07)
[2017-06-22 05:06] LABS: % BASOPHILS 0.3 % (0.0-2.0); % EOSINOPHILS 4.6 % (0.0-5.0); % LYMPHOCYTES 29.3 % (20.0-50.0); % MONOCYTES 12.5 % (2.0-10.0); % NEUTROPHILS 53.3 % (40.0-80.0); HEMATOCRIT 29.1 % (39.0-49.0); HEMOGLOBIN 9.7 gm/dL (13.2-17.3); MEAN CELL VOLUME 95.2 fl (80-99); MEAN CORPUSCULAR HEMOGLOBIN 31.7 pg (26.0-30.0); MEAN CORPUSCULAR HGB CONC 33.3 pg (28.0-36.0); MEAN PLATELET VOLUME 10.4 fl; NEUTROPHILE ABSOLUTE 2.6 Th/cmm (1.8-8.0); RED BLOOD COUNT 3.05 Mil/cmm (4.30-5.70); WHITE BLOOD COUNT 4.8 Th/cmm (4.8-10.8)
[2017-06-22] MEDS: Levetiracetam 500 mg/5mL 5mL UDC GT SCH ×3 (05:17→20:08)
[2017-06-22] MEDS: Lactulose 10 Gm/15 mL 30mL UDC GT SCH ×3 (05:17→17:43)
[2017-06-22 05:18] LABS: PLATELET COUNT 58 Th/cmm (150-400)
[2017-06-22 05:27] LABS: ALB/GLOB RATIO 0.5 (1.0-1.8); ALKALINE PHOSPHATASE 168 U/L (34-104); ANION GAP 5.1 (7.0-16.0); BUN - UREA NITROGEN 21 mg/dL (7-25); CALCIUM SERUM 10.4 mg/dL (8.6-10.3); CARBON DIOXIDE 26.6 mEq/L (21.0-31.0); CHLORIDE 121 mEq/L (98-107); CREATININE - SERUM 0.6 mg/dL (0.7-1.3); GLUCOSE 103 mg/dL (70-105); POTASSIUM SERUM 3.7 mEq/L (3.5-5.1); SGOT 44 U/L (13-39); SGPT/ALT 20 U/L (7-52); SODIUM SERUM 149 mEq/L (136-145)
[2017-06-22] MEDS: Budesonide 0.5 Mg/2 mL Ud HHN SCH ×2 (06:57→19:12)
[2017-06-22] MEDS: Chlorhexidine Gluconate 0.12% 15mL Mouthwash MM SCH ×2 (08:43→20:06)
[2017-06-22] MEDS: Calcium Carb/Vit D 500 mg/200 U Tab GT SCH (08:43)
[2017-06-22] MEDS: Lactobacillus Rhamnosus 10 Billion CFU Capsule PO SCH (08:43)
[2017-06-22] MEDS: Potassium Chloride Elixir 20 mEq /15 mL UDC GT SCH ×3 (08:46→20:06)
--- NOTE | 2017-06-22 11:19 | General Progress Note ---
Subjective - Review of Systems Events since last encounter: patient awake, with no distress Subjective: on vent, afebrile nad Objective - Results Result Diagrams: 06/22/17 04:47 06/22/17 04:47 Recent Labs: Laboratory Last Values WBC 4.8 Th/cmm (4.8-10.8) 06/22/17 04:47 RBC 3.05 Mil/cmm (4.30-5.70) L 06/22/17 04:47 Hgb 9.7 gm/dL (13.2-17.3) L 06/22/17 04:47 Hct 29.1 % (39.0-49.0) L 06/22/17 04:47 MCV 95.2 fl (80-99) 06/22/17 04:47 MCH 31.7 pg (26.0-30.0) H 06/22/17 04:47 MCHC Differential 33.3 pg (28.0-36.0) 06/22/17 04:47 RDW 15.0 % (11.5-20.0) 06/22/17 04:47 Plt Count 58 Th/cmm (150-400) L D 06/22/17 04:47 MPV 10.4 fl 06/22/17 04:47 Neutrophils % 53.3 % (40.0-80.0) 06/22/17 04:47 Band Neutrophils % 3 % (0-10) 06/21/17 04:38 Lymphocytes % 29.3 % (20.0-50.0) 06/22/17 04:47 Monocytes % 12.5 % (2.0-10.0) H 06/22/17 04:47 Eosinophils % 4.6 % (0.0-5.0) 06/22/17 04:47 Basophils % 0.3 % (0.0-2.0) 06/22/17 04:47 Neutrophils (Manual) 44 % (40-80) 06/21/17 04:38 Lymphocytes 30 % (20-50) 06/21/17 04:38 Monocytes 17 % (2-10) H 06/21/17 04:38 Eosinophils 6 % (0-5) H 06/21/17 04:38 Basophils 0 % (0-3) 06/14/17 05:00 Metamyelocytes 2 % (0-0) H 06/13/17 07:20 Myelocytes 1 % 06/13/17 07:20 Nucleated RBCs 1.0 % (0-0) H 06/08/17 04:59 Platelet Estimate DECREASED PLATELETS (NORMAL) 06/21/17 04:38 Platelet Morphology PLATELET CLUMPS SEEN (NORMAL) 06/21/17 04:38 Polychromasia 1+ 06/18/17 04:59 Anisocytosis 1+ 06/21/17 04:38 RBC Morph Micro Appear ABNORMAL (NORMAL) 06/21/17 04:38 Specimen Source ARTERIAL 06/10/17 08:43 Sample Site Left Radial 06/10/17 08:43 pH 7.46 (7.35-7.45) H 06/10/17 08:43 pCO2 36.0 mmHg (35.0-45.0) 06/10/17 08:43 pO2 92.0 mmHg (80.0-100.0) 06/10/17 08:43 HCO3 26.4 mEq/L (20.0-26.0) H 06/10/17 08:43 Base Excess 1.9 mEq/L (-3.0-3.0) 06/10/17 08:43 O2 Saturation 98.0 % (92.0-100.0) 06/10/17 08:43 Jose L Test POSITIVE 06/10/17 08:43 Vent Rate 12 06/10/17 08:43 Inspired O2 40 06/10/17 08:43 Tidal Volume 500 06/10/17 08:43 PEEP 5 06/10/17 08:43 Pressure (ins/psv/peep) N/A 06/10/17 08:43 Critical Value SAURABH 06/10/17 08:43 Sodium 149 mEq/L (136-145) H 06/22/17 04:47 Potassium 3.7 mEq/L (3.5-5.1) 06/22/17 04:47 Chloride 121 mEq/L (98-107) H 06/22/17 04:47 Carbon Dioxide 26.6 mEq/L (21.0-31.0) 06/22/17 04:47 Anion Gap 5.1 (7.0-16.0) L 06/22/17 04:47 BUN 21 mg/dL (7-25) 06/22/17 04:47 Creatinine 0.6 mg/dL (0.7-1.3) L 06/22/17 04:47 Est GFR ( Amer) > 60.0 ml/min (>90) 06/22/17 04:47 Est GFR (Non-Af Amer) > 60.0 ml/min 06/22/17 04:47 BUN/Creatinine Ratio 35.0 06/22/17 04:47 Glucose 103 mg/dL (70-105) 06/22/17 04:47 Plasma/Ser Osmolality 313 mOsmol/kg (275-295) H 06/09/17 05:07 Whole Bld Lactic Acid 1.51 mmol/L (0.60-1.99) 06/08/17 04:59 Calcium 10.4 mg/dL (8.6-10.3) H 06/22/17 04:47 Phosphorus 2.7 mg/dL (2.5-5.0) 06/08/17 04:59 Magnesium 1.6 mg/dL (1.9-2.7) L 06/14/17 05:00 Iron 71 ug/dL (38-169) 06/08/17 04:59 TIBC 173 ug/dL (250-450) L 06/08/17 04:59 Iron Saturation 41 % (15-55) 06/08/17 04:59 Unsaturated IBC 102 ug/dL (111-343) L 06/08/17 04:59 Ferritin 303 ng/mL (30-400) 06/08/17 04:59 Total Bilirubin 1.0 mg/dL (0.3-1.0) 06/22/17 04:47 Direct Bilirubin 0.29 mg/dL (0.0-0.2) H 06/16/17 04:40 AST 44 U/L (13-39) H 06/22/17 04:47 ALT 20 U/L (7-52) 06/22/17 04:47 Alkaline Phosphatase 168 U/L (34-104) H 06/22/17 04:47 Ammonia 56 umol/L (16-53) H 06/22/17 04:47 Troponin I 0.01 ng/mL (0.01-0.05) 06/07/17 13:28 B-Natriuretic Peptide 91.8 pg/mL (5.0-100.0) 06/07/17 13:28 Total Protein 8.0 gm/dL (6.0-8.3) 06/22/17 04:47 Albumin 2.7 gm/dL (4.2-5.5) L 06/22/17 04:47 Globulin 5.3 gm/dL 06/22/17 04:47 Albumin/Globulin Ratio 0.5 (1.0-1.8) L 06/22/17 04:47 Vitamin B12 >1999 pg/mL (211-946) H 06/08/17 04:59 Folic Acid >20.0 ng/mL (>3.0) 06/08/17 04:59 Urine Source RANDOM 06/07/17 13:25 Urine Color NISA 06/07/17 13:25 Urine Clarity CLOUDY (CLEAR) 06/07/17 13:25 Urine pH 5.5 (4.6 - 8.0) 06/07/17 13:25 Ur Specific Sylvester 1.020 (1.005-1.030) 06/07/17 13:25 Urine Protein >=300 mg/dL (NEGATIVE) 06/07/17 13:25 Urine Glucose (UA) NEGATIVE mg/dL (NEGATIVE) 06/07/17 13:25 Urine Ketones 15 mg/dL (NEGATIVE) H 06/07/17 13:25 Urine Blood LARGE (NEGATIVE) H 06/07/17 13:25 Urine Nitrate POSITIVE (NEGATIVE) H 06/07/17 13:25 Urine Bilirubin MODERATE (NEGATIVE) H 06/07/17 13:25 Urine Urobilinogen 2.0 E.U./dL (0.2 - 1.0) 06/07/17 13:25 Ur Leukocyte Esterase MODERATE (NEGATIVE) H 06/07/17 13:25 Urine RBC >100 /hpf (0-5) H 06/07/17 13:25 Urine WBC 2-5 /hpf (0-5) H 06/07/17 13:25 Ur Epithelial Cells OCCASIONAL /lpf (FEW) 06/07/17 13:25 Urine Bacteria FEW /hpf (NONE SEEN) 06/07/17 13:25 Urine Osmolality 776 mOsmol/kg 06/09/17 05:53 Ur Random Sodium 119 mmol/L 06/08/17 18:16 Stool Occult Blood NEGATIVE (NEGATIVE) 06/22/17 07:15 Vancomycin Trough 17.9 ug/mL (10-20) 06/20/17 09:35 Blood Type O POSITIVE 06/09/17 09:30 Antibody Screen NEGATIVE 06/09/17 09:30 - Physical Exam Vitals and I&O: Vital Signs Temp 98.8 F 06/22/17 11:00 Pulse 81 06/22/17 11:06 Resp 20 06/22/17 11:00 BP 128/68 06/22/17 11:00 Pulse Ox 99 06/22/17 11:06 Intake & Output 06/21/17 06/22/17 06/22/17 18:59 06:59 18:59 Intake Total 1650 1050 Output Total 1160 1050 Balance 490 0 Weight (lbs) 84.85 kg 83.824 kg Intake: Intake, IV Amount 450 450 Colistimethate 150 mg In 100 100 Sodium Chloride 0.9% 100 ml @ 100 mls/hr IV Q12HR [facility] Rx#:[id number] Meropenem 1 gm In Sodium 100 100 Chloride 0.9% 100 ml @ 100 mls/hr IV Q12H [facility] Rx #:[id number] Vancomycin HCl 1.25 gm In 250 250 Sodium Chloride 0.9% 250 ml @ 165 mls/hr IV Q12H [facility] Rx#:[id number] Tube Feeding 600 400 Other 600 200 Output: Urine 500 550 Stool 660 500 Other: Stool Characteristics Liquid Liquid Liquid Brown Brown Brown Active Medications: Current Medications Albuterol/Ipratropium (Duoneb Neb) 3 ml HHN Q4HRT [facility] Stop: 08/07/17 18:59 Last Admin: 06/22/17 11:06 Dose: 3 ml Amlodipine Besylate (Norvasc) 5 mg GT Q12HR [facility] Stop: 08/06/17 20:59 Last Admin: 06/22/17 08:47 Dose: Not Given Artificial Tears (Artificial Tears Ophth Soln) 2 drop EACH EYE Q6H PRN PRN Reason: eye dryness Stop: 08/06/17 20:54 Last Admin: 06/16/17 09:32 Dose: 2 drop Atorvastatin Calcium (Lipitor) 10 mg GT HS [place] PRN Reason: Protocol Stop: 08/06/17 20:59 Last Admin: 06/21/17 20:08 Dose: 10 mg Bisacodyl (Dulcolax 10 Mg Supp) 10 mg RC DAILY PRN PRN Reason: Constipation Stop: 08/06/17 19:17 Budesonide (Pulmicort) 0.5 mg HHN BIDRT [facility] Stop: 08/07/17 18:59 Last Admin: 06/22/17 06:57 Dose: 0.5 mg Calcium/Vitamin D (Oscal W/Vitamin D) 1 tab GT DAILY [facility] Stop: 08/07/17 08:59 Last Admin: 06/22/17 08:43 Dose: 1 tab Chlorhexidine Gluconate (Peridex) 15 ml MM 0800,1999 [facility] Stop: 08/08/17 19:59 Last Admin: 06/22/17 08:43 Dose: 15 ml Clonazepam (Klonopin) 2 mg GT DAILY [facility] PRN Reason: Protocol Stop: 08/20/17 13:44 Last Admin: 06/22/17 08:42 Dose: 2 mg Folic Acid (Folate) 2.5 mg GT DAILY [facility] Stop: 08/07/17 08:59 Last Admin: 06/22/17 08:43 Dose: 2.5 mg Hydralazine HCl (Apresoline) 50 mg GT Q8HR [facility] Stop: 08/06/17 20:59 Last Admin: 06/22/17 05:25 Dose: Not Given Meropenem 1 gm/ Sodium (Chloride) 100 mls @ 100 mls/hr IV Q12H [facility] Stop: 08/13/17 08:59 Last Admin: 06/22/17 08:00 Dose: 100 mls/hr Vancomycin HCl 1.25 gm/ Sodium (Chloride) 250 mls @ 165 mls/hr IV Q12H [facility] Stop: 08/15/17 09:59 Last Admin: 06/22/17 09:40 Dose: 165 mls/hr Colistimethate Sodium 150 mg/ (Sodium Chloride) 100 mls @ 100 mls/hr IV Q12HR [facility] Stop: 08/18/17 20:59 Last Admin: 06/22/17 08:45 Dose: 100 mls/hr Lactobacillus Rhamnosus (Culturelle) 1 each PO DAILY [facility] Stop: 08/08/17 08:59 Last Admin: 06/22/17 08:43 Dose: 1 each Lactulose (Cephulac) 30 gm GT Q6HR [facility] Stop: 08/08/17 17:59 Last Admin: 06/22/17 05:17 Dose: 30 gm Levetiracetam (Keppra) 1,000 mg GT Q8HR [facility] Stop: 08/06/17 20:59 Last Admin: 06/22/17 05:17 Dose: 1,000 mg Lorazepam (Ativan) 1 mg IVP Q6H PRN; Protocol PRN Reason: Agitation Stop: 08/13/17 23:17 Last Admin: 06/22/17 06:01 Dose: 1 mg Magnesium Hydroxide (Milk Of Magnesia) 30 ml GT HS PRN PRN Reason: Constipation Stop: 08/06/17 19:17 Magnesium Oxide (Mag-Oxide) 400 mg GT DAILY [facility] Stop: 08/07/17 08:59 Last Admin: 06/22/17 08:45 Dose: 400 mg Metoprolol Tartrate (Lopressor) 100 mg GT Q12HR [facility] Stop: 08/06/17 20:59 Last Admin: 06/22/17 08:46 Dose: Not Given Miscellaneous (Probiotic Screen) 1 ea PRN PRN PRN Reason: PROTOCOL Stop: 08/07/17 10:42 Miscellaneous (Vancomycin Iv Per Pharmacy) 1 ea PRN PRN PRN Reason: VANCO PER RX Stop: 08/20/17 13:12 Phytonadione (Mephyton) 10 mg GT DAILY [facility] Stop: 08/07/17 19:59 Last Admin: 06/22/17 08:42 Dose: 10 mg Potassium Chloride (Potassium Chloride Elixir) 20 meq GT TID [facility] Stop: 08/12/17 13:59 Last Admin: 06/22/17 08:46 Dose: 20 meq Propranolol HCl (Inderal) 20 mg GT TID [facility] Stop: 08/06/17 20:59 Last Admin: 06/22/17 08:47 Dose: Not Given Pyridoxine HCl (Vitamin B6) 100 mg GT DAILY [facility] Stop: 08/07/17 08:59 Last Admin: 06/22/17 08:42 Dose: 100 mg Sodium Phosphate (Fleet Enema) 135 ml RC Q48H PRN PRN Reason: IF DULCOLAX IS INEFFECTIVE Stop: 08/06/17 19:17 Temazepam (Restoril) 15 mg GT HS PRN; Protocol PRN Reason: Insomnia Stop: 08/19/17 19:18 Last Admin: 06/21/17 20:08 Dose: 15 mg Thiamine HCl (Vitamin B1) 100 mg GT DAILY [facility] Stop: 08/07/17 08:59 Last Admin: 06/22/17 08:43 Dose: 100 mg Valproate Sodium (Depakene) 500 mg GT TID [facility] PRN Reason: Protocol Stop: 08/06/17 20:59 Last Admin: 06/22/17 08:42 Dose: 500 mg General: Alert, No acute distress HEENT: Atraumatic, PERRLA, EOMI, Mucous membr. moist/pink, Other (tracheostomy) Neck: Supple, +2 carotid pulse wo bruit, Other (tracheostomy) Cardiovascular: Regular rate, Normal S1, Normal S2 Lungs: Clear to auscultation, Other (tracheostomy) Abdomen: Bowel sounds, Soft, Other (gastric tube and rectal tube) Extremities: no Edema Neurological: Sensation intact Skin: no Rash Psych/Mental Status: Mood NL - Procedures Procedures: Procedures Procedure Code Date RESPIRATORY VENTILATION, GREATER THAN 96 CONSECUTIVE HOURS [id number] 06/07/17 Assessment/Plan - Problem List Patient Problems: All Active Problems ELEVATED NA+, AND BUN LEVELS (Acute) Status post tracheostomy (Acute) Z93.0 Status post tracheostomy (Acute) Z93.0 - Assessment Assessment: s/p respiratory failure pnumonia s/p trch and peg trmors h/o alcoholism h/o sizures - Plan Plan: iv antibiotics vent support continue current plan of care am labs Nutritional Asmnt/Malnutr-PDOC - Dietary Evaluation Malnutrition Findings (Please click <Entered> for more info): Nutritional Asmnt/Malnutrition Start: 06/09/17 11: 00 Text: Status: Complete Freq: Document 06/09/17 13:09 [facility] (Rec: 06/09/17 13:27 [facility] [id number]) Nutritional Asmnt/Malnutrition Patient General Information Nutritional Screening High Risk Screening Diagnosis Sepsis, UTI, right and left lower lobe infiltrate, pneumonia Pertinent Medical Hx/Surgical Hx Alcohol problem, liver disease , cirrhosis of the liver, hepatic comas, seizures, trachestomy, PEG, asthma, COPD Subjective Information Pt is a 52-year-old male from [facility] admitted with chief complaint of shortness of breath and falling oxygen saturation. Pt has tracheostomy to ventilator. Pt was unable to provide nutritional hx. Pt appears well nourished with no signs of muscle or fat depletion. Order to resume tube feeding; bag of Novosource Renal at bedside not yet started. Abdomen Ultrasound 06/09 notes some abdominal ascites. Current Diet Order/ Nutrition Support Novosource Renal at 55 ml/hr = 2640kcals, 120gm protein, 946ml free water Patient / S.O Can't verbalize diet edu Pertinent Medications Oscal with Vitamin D, Cefepime , D5w, Iron, Folate, Culturelle, MagOxide, Mephyton , KCl Elixir, Vitamin B6, Vitamin B1, Depakene, Vancomycin Pertinent Labs (06/09) Na 148H (improving), K 3L, Alkaline Phosphatase 171H, Ammonia 64H, Albumin 3.3L Nutritional Hx/Data Height 1.68 m Height (Calculated Centimeters) 167.6 Current Weight (lbs) 76.657 kg Weight (Calculated Kilograms) 76.7 Weight (Calculated Grams) 06540.1 Usual body Weight (lbs) 168 % Usual Body Weight 100 Stuart Body Weight 142 % Stuart Body Weight 119 Recent Weight Change No Weight Status Overweight GI Symptoms GI Symptoms Diarrhea Difficult in: Chewing Swallowing Food Allergies No Usual diet at home Nepro 1.8 (237 ml) QID 0900, 1300, 1700, 2100, sugar free ProStat 30 ml Skin Integrity/Comment: Vitor Thomas. Skin intact. Estimated Nutritional Goals BEE in Kcals: Using Current wt Calories/Kcals/Kg Based on current wt 76.8 kg with consideration of sepsis: Kcals Calculated 3997-6594 kcals/day (27-32 kcals/kg) to prevent wt gain with overwt status Protein: Using Current wt Protein g/kg: Based on current wt 76.8 kg with consideration of sepsis: Protein Calculated 92-115 gm/day (1.2-1.5 gm/kg) Fluid: ml Per MD/DO due to abnormal electrolytes Nutritional Problem 1. Problem Problem Excessive intake from enteral nutrition related to Etiology increased energy intake from calorically dense tube feeding formula as evidenced by Signs/Symptoms: current tube feeding meets 104 % of higher end of estimated calories needs. Malnutrition Alert Protein-Calorie Malnutrition N/A Is there a minimum of two criteria No selected? Query Text:Check all the applicable criteria. A minimum of two criteria are recommended for diagnosis of either severe or non-severe malnutrition. Malnutrition Related to Morbid Obesity Malnutrition related to morbid obesity No Intervention/Recommendation Recommendations by RD Decrease Calorie Intake Comments 1. Recommend decrease tube feeding Novosource Renal at goal rate of 50 ml/hr to provide 2400 kcals, 109 gm protein, and 860 ml free water per day. Monitor renal labs to prioritize protein needs. Expected Outcomes/Goals Expected Outcomes/Goals Provide pt with 100% of estimated nutritional needs. Physician Parameters for PEM Serum Albumin (g/dl) 3.1 - 3.4 (Mild)
[2017-06-22] MEDS: Atorvastatin Calcium 10 MG TAB GT SCH (20:07)
[2017-06-23] MEDS: Lactulose 10 Gm/15 mL 30mL UDC GT SCH ×4 (00:08→17:38)
--- NOTE | 2017-06-23 02:21 | Progress Notes ---
DATE: 06/21/2017 PROBLEM LIST: 1. Persistent respiratory failure. 2. Bilateral pneumonia, improving. Left side effusion, improving. 3. Hepatic encephalopathy with previous history of chronic vent dependent. SYMPTOMS: The patient is awake, looking side to side, no respiratory distress, etc. PHYSICAL EXAMINATION: VITAL SIGNS: The patient's temperature is 97.8, blood pressure 117/64, saturation 100% on 30% under vent with assist control. NECK: Veins not visualized. CHEST: Shows diminished air entry. No other adventitious breath sounds. HEART: Regular. ABDOMEN: Soft, nontender. LABORATORY DATA: White count is 4.2, platelet is on the lower side, hemoglobin 9.8. ASSESSMENT: The patient is clinically stable respiratory franklin. PLAN: We will continue current treatment. We will follow through ammonia level and also chest x-ray tomorrow. JOB# [id number]
[2017-06-23] MEDS: Albuterol/Ipratropium Neb 3 ML AERS HHN SCH ×5 (03:34→23:00)
[2017-06-23] MEDS: Levetiracetam 500 mg/5mL 5mL UDC GT SCH ×3 (05:05→20:28)
--- NOTE | 2017-06-23 05:06 | Progress Notes ---
DATE: 06/22/2017 PROBLEM LIST: 1. Persistent respiratory failure. 2. Bilateral pneumonia, resolved. 3. Bilateral effusion, already resolved. 4. Electrolyte imbalance, improved. 5. Encephalopathy, persistent. SYMPTOMS: Nil. The patient is awake, but no meaningful communication could be done and no respiratory distress, etc. PHYSICAL EXAMINATION: VITAL SIGNS: Temperature is 99.7, blood pressure 124/80, saturation 100% on 30%. NECK: Veins not visualized. CHEST: Shows clear. HEART: Regular. LABORATORY STUDIES: White count is 4.8, platelets 58. Electrolytes: Sodium is 149, ammonia is 56. Chest x-ray is clear with very minimal atelectasis changes in the right mid lung area. ASSESSMENT: The patient clinically significantly improved and improving. PLANS AND SUGGESTIONS: We will continue current respiratory care and we will see the patient as requested as patient is awaiting for the ____ care home unit. JOB# [id number]
[2017-06-23 05:26] LABS: % BASOPHILS 0.2 % (0.0-2.0); % EOSINOPHILS 3.3 % (0.0-5.0); % LYMPHOCYTES 24.9 % (20.0-50.0); % MONOCYTES 12.4 % (2.0-10.0); % NEUTROPHILS 59.2 % (40.0-80.0); HEMOGLOBIN 9.8 gm/dL (13.2-17.3); MEAN CELL VOLUME 94.8 fl (80-99); MEAN CORPUSCULAR HGB CONC 32.7 pg (28.0-36.0); MEAN PLATELET VOLUME 10.4 fl; NEUTROPHILE ABSOLUTE 3.7 Th/cmm (1.8-8.0); RED BLOOD COUNT 3.17 Mil/cmm (4.30-5.70); RED CELL DISTRIBUTION WIDTH 14.7 % (11.5-20.0); WHITE BLOOD COUNT 6.2 Th/cmm (4.8-10.8)
[2017-06-23 05:39] LABS: ALB/GLOB RATIO 0.5 (1.0-1.8); ALKALINE PHOSPHATASE 191 U/L (34-104); ANION GAP 5.1 (7.0-16.0); BUN - UREA NITROGEN 22 mg/dL (7-25); BUN/CREATININE RATIO 36.7; CALCIUM SERUM 10.7 mg/dL (8.6-10.3); CARBON DIOXIDE 26.5 mEq/L (21.0-31.0); CHLORIDE 123 mEq/L (98-107); CREATININE - SERUM 0.6 mg/dL (0.7-1.3); GLUCOSE 118 mg/dL (70-105); POTASSIUM SERUM 3.6 mEq/L (3.5-5.1); SGOT 40 U/L (13-39); SGPT/ALT 19 U/L (7-52); SODIUM SERUM 151 mEq/L (136-145)
[2017-06-23] MEDS: Budesonide 0.5 Mg/2 mL Ud HHN SCH ×2 (06:44→18:51)
[2017-06-23 07:00] LABS: PLATELET COUNT 64 Th/cmm (150-400)
[2017-06-23] MEDS: Calcium Carb/Vit D 500 mg/200 U Tab GT SCH (08:43)
[2017-06-23] MEDS: Chlorhexidine Gluconate 0.12% 15mL Mouthwash MM SCH ×2 (08:43→20:37)
[2017-06-23] MEDS: Lactobacillus Rhamnosus 10 Billion CFU Capsule PO SCH (08:44)
[2017-06-23] MEDS: Potassium Chloride Elixir 20 mEq /15 mL UDC GT SCH ×3 (08:44→20:28)
--- NOTE | 2017-06-23 08:55 | Diagnostic Imaging Report ---
Exam: Portable examination of chest. HISTORY: Shortness of breath. Findings: Portable supine examination of the chest at 0838 hours reviewed, no prior studies available for comparison. The study demonstrates tracheostomy tube midline. Mediastinal structures midline the heart is not enlarged costophrenic angles are clear. Mild congestion cannot be excluded. IMPRESSION: Question mild congestion, follow-up dictation recommended.
--- NOTE | 2017-06-23 11:56 | General Progress Note ---
Subjective - Review of Systems Service Date: 06/23/17 Events since last encounter: no bleeding Subjective: awake, non communicative Objective - Results Result Diagrams: 06/23/17 04:41 06/23/17 04:41 Recent Labs: Laboratory Last Values WBC 6.2 Th/cmm (4.8-10.8) D 06/23/17 04:41 RBC 3.17 Mil/cmm (4.30-5.70) L 06/23/17 04:41 Hgb 9.8 gm/dL (13.2-17.3) L 06/23/17 04:41 Hct 30.0 % (39.0-49.0) L 06/23/17 04:41 MCV 94.8 fl (80-99) 06/23/17 04:41 MCH 31.0 pg (26.0-30.0) H 06/23/17 04:41 MCHC Differential 32.7 pg (28.0-36.0) 06/23/17 04:41 RDW 14.7 % (11.5-20.0) 06/23/17 04:41 Plt Count 64 Th/cmm (150-400) L 06/23/17 04:41 MPV 10.4 fl 06/23/17 04:41 Neutrophils % 59.2 % (40.0-80.0) 06/23/17 04:41 Band Neutrophils % 3 % (0-10) 06/21/17 04:38 Lymphocytes % 24.9 % (20.0-50.0) 06/23/17 04:41 Monocytes % 12.4 % (2.0-10.0) H 06/23/17 04:41 Eosinophils % 3.3 % (0.0-5.0) 06/23/17 04:41 Basophils % 0.2 % (0.0-2.0) 06/23/17 04:41 Neutrophils (Manual) 44 % (40-80) 06/21/17 04:38 Lymphocytes 30 % (20-50) 06/21/17 04:38 Monocytes 17 % (2-10) H 06/21/17 04:38 Eosinophils 6 % (0-5) H 06/21/17 04:38 Basophils 0 % (0-3) 06/14/17 05:00 Metamyelocytes 2 % (0-0) H 06/13/17 07:20 Myelocytes 1 % 06/13/17 07:20 Nucleated RBCs 1.0 % (0-0) H 06/08/17 04:59 Platelet Estimate DECREASED PLATELETS (NORMAL) 06/21/17 04:38 Platelet Morphology PLATELET CLUMPS SEEN (NORMAL) 06/21/17 04:38 Polychromasia 1+ 06/18/17 04:59 Anisocytosis 1+ 06/21/17 04:38 RBC Morph Micro Appear ABNORMAL (NORMAL) 06/21/17 04:38 Specimen Source ARTERIAL 06/10/17 08:43 Sample Site Left Radial 06/10/17 08:43 pH 7.46 (7.35-7.45) H 06/10/17 08:43 pCO2 36.0 mmHg (35.0-45.0) 06/10/17 08:43 pO2 92.0 mmHg (80.0-100.0) 06/10/17 08:43 HCO3 26.4 mEq/L (20.0-26.0) H 06/10/17 08:43 Base Excess 1.9 mEq/L (-3.0-3.0) 06/10/17 08:43 O2 Saturation 98.0 % (92.0-100.0) 06/10/17 08:43 Jose L Test POSITIVE 06/10/17 08:43 Vent Rate 12 06/10/17 08:43 Inspired O2 40 06/10/17 08:43 Tidal Volume 500 06/10/17 08:43 PEEP 5 06/10/17 08:43 Pressure (ins/psv/peep) N/A 06/10/17 08:43 Critical Value SAURABH 06/10/17 08:43 Sodium 151 mEq/L (136-145) H 06/23/17 04:41 Potassium 3.6 mEq/L (3.5-5.1) 06/23/17 04:41 Chloride 123 mEq/L (98-107) H 06/23/17 04:41 Carbon Dioxide 26.5 mEq/L (21.0-31.0) 06/23/17 04:41 Anion Gap 5.1 (7.0-16.0) L 06/23/17 04:41 BUN 22 mg/dL (7-25) 06/23/17 04:41 Creatinine 0.6 mg/dL (0.7-1.3) L 06/23/17 04:41 Est GFR ( Amer) > 60.0 ml/min (>90) 06/23/17 04:41 Est GFR (Non-Af Amer) > 60.0 ml/min 06/23/17 04:41 BUN/Creatinine Ratio 36.7 06/23/17 04:41 Glucose 118 mg/dL (70-105) H 06/23/17 04:41 Plasma/Ser Osmolality 313 mOsmol/kg (275-295) H 06/09/17 05:07 Whole Bld Lactic Acid 1.51 mmol/L (0.60-1.99) 06/08/17 04:59 Calcium 10.7 mg/dL (8.6-10.3) H 06/23/17 04:41 Phosphorus 2.7 mg/dL (2.5-5.0) 06/08/17 04:59 Magnesium 1.6 mg/dL (1.9-2.7) L 06/14/17 05:00 Iron 71 ug/dL (38-169) 06/08/17 04:59 TIBC 173 ug/dL (250-450) L 06/08/17 04:59 Iron Saturation 41 % (15-55) 06/08/17 04:59 Unsaturated IBC 102 ug/dL (111-343) L 06/08/17 04:59 Ferritin 303 ng/mL (30-400) 06/08/17 04:59 Total Bilirubin 1.0 mg/dL (0.3-1.0) 06/23/17 04:41 Direct Bilirubin 0.29 mg/dL (0.0-0.2) H 06/16/17 04:40 AST 40 U/L (13-39) H 06/23/17 04:41 ALT 19 U/L (7-52) 06/23/17 04:41 Alkaline Phosphatase 191 U/L (34-104) H 06/23/17 04:41 Ammonia 76 umol/L (16-53) H 06/23/17 04:41 Troponin I 0.01 ng/mL (0.01-0.05) 06/07/17 13:28 B-Natriuretic Peptide 91.8 pg/mL (5.0-100.0) 06/07/17 13:28 Total Protein 8.5 gm/dL (6.0-8.3) H 06/23/17 04:41 Albumin 2.9 gm/dL (4.2-5.5) L 06/23/17 04:41 Globulin 5.6 gm/dL 06/23/17 04:41 Albumin/Globulin Ratio 0.5 (1.0-1.8) L 06/23/17 04:41 Vitamin B12 >1999 pg/mL (211-946) H 06/08/17 04:59 Folic Acid >20.0 ng/mL (>3.0) 06/08/17 04:59 Urine Source RANDOM 06/07/17 13:25 Urine Color NISA 06/07/17 13:25 Urine Clarity CLOUDY (CLEAR) 06/07/17 13:25 Urine pH 5.5 (4.6 - 8.0) 06/07/17 13:25 Ur Specific Mineral 1.020 (1.005-1.030) 06/07/17 13:25 Urine Protein >=300 mg/dL (NEGATIVE) 06/07/17 13:25 Urine Glucose (UA) NEGATIVE mg/dL (NEGATIVE) 06/07/17 13:25 Urine Ketones 15 mg/dL (NEGATIVE) H 06/07/17 13:25 Urine Blood LARGE (NEGATIVE) H 06/07/17 13:25 Urine Nitrate POSITIVE (NEGATIVE) H 06/07/17 13:25 Urine Bilirubin MODERATE (NEGATIVE) H 06/07/17 13:25 Urine Urobilinogen 2.0 E.U./dL (0.2 - 1.0) 06/07/17 13:25 Ur Leukocyte Esterase MODERATE (NEGATIVE) H 06/07/17 13:25 Urine RBC >100 /hpf (0-5) H 06/07/17 13:25 Urine WBC 2-5 /hpf (0-5) H 06/07/17 13:25 Ur Epithelial Cells OCCASIONAL /lpf (FEW) 06/07/17 13:25 Urine Bacteria FEW /hpf (NONE SEEN) 06/07/17 13:25 Urine Osmolality 776 mOsmol/kg 06/09/17 05:53 Ur Random Sodium 119 mmol/L 06/08/17 18:16 Stool Occult Blood NEGATIVE (NEGATIVE) 06/22/17 07:15 Vancomycin Trough 17.9 ug/mL (10-20) 06/20/17 09:35 Blood Type O POSITIVE 06/09/17 09:30 Antibody Screen NEGATIVE 06/09/17 09:30 - Physical Exam Vitals and I&O: Vital Signs Temp 98.1 F 06/23/17 10:00 Pulse 72 06/23/17 10:44 Resp 18 06/23/17 10:00 BP 122/68 06/23/17 10:00 Pulse Ox 100 06/23/17 10:44 Intake & Output 06/22/17 06/23/17 06/23/17 18:59 06:59 18:59 Intake Total 1700 1000 Output Total 1180 1600 Balance 520 -600 Weight (lbs) 83.206 kg 83.007 kg Intake: Intake, IV Amount 450 450 Colistimethate 150 mg In 100 100 Sodium Chloride 0.9% 100 ml @ 100 mls/hr IV Q12HR [facility] Rx#:[id number] Meropenem 1 gm In Sodium 100 100 Chloride 0.9% 100 ml @ 100 mls/hr IV Q12H [facility] Rx #:[id number] Vancomycin HCl 1.25 gm In 250 250 Sodium Chloride 0.9% 250 ml @ 165 mls/hr IV Q12H [facility] Rx#:[id number] Tube Feeding 600 550 Other 650 Output: Urine 680 600 Stool 500 1000 Other: Stool Characteristics Liquid Liquid Liquid Brown Brown Brown Active Medications: Current Medications Albuterol/Ipratropium (Duoneb Neb) 3 ml HHN Q4HRT [facility] Stop: 08/07/17 18:59 Last Admin: 06/23/17 10:44 Dose: 3 ml Amlodipine Besylate (Norvasc) 5 mg GT Q12HR [place] Stop: 08/06/17 20:59 Last Admin: 06/23/17 08:45 Dose: 5 mg Artificial Tears (Artificial Tears Ophth Soln) 2 drop EACH EYE Q6H PRN PRN Reason: eye dryness Stop: 08/06/17 20:54 Last Admin: 06/16/17 09:32 Dose: 2 drop Atorvastatin Calcium (Lipitor) 10 mg GT HS [place] PRN Reason: Protocol Stop: 08/06/17 20:59 Last Admin: 06/22/17 20:07 Dose: 10 mg Bisacodyl (Dulcolax 10 Mg Supp) 10 mg RC DAILY PRN PRN Reason: Constipation Stop: 08/06/17 19:17 Budesonide (Pulmicort) 0.5 mg HHN BIDRT [place] Stop: 08/07/17 18:59 Last Admin: 06/23/17 06:44 Dose: 0.5 mg Calcium/Vitamin D (Oscal W/Vitamin D) 1 tab GT DAILY [place] Stop: 08/07/17 08:59 Last Admin: 06/23/17 08:43 Dose: 1 tab Chlorhexidine Gluconate (Peridex) 15 ml MM 0800,1999 [facility] Stop: 08/08/17 19:59 Last Admin: 06/23/17 08:43 Dose: 15 ml Clonazepam (Klonopin) 2 mg GT DAILY [place] PRN Reason: Protocol Stop: 08/20/17 13:44 Last Admin: 06/23/17 08:43 Dose: 2 mg Folic Acid (Folate) 2.5 mg GT DAILY [place] Stop: 08/07/17 08:59 Last Admin: 06/23/17 08:44 Dose: 2.5 mg Hydralazine HCl (Apresoline) 50 mg GT Q8HR [facility] Stop: 08/06/17 20:59 Last Admin: 06/23/17 05:05 Dose: 50 mg Meropenem 1 gm/ Sodium (Chloride) 100 mls @ 100 mls/hr IV Q12H [facility] Stop: 08/13/17 08:59 Last Admin: 06/23/17 08:51 Dose: 100 mls/hr Vancomycin HCl 1.25 gm/ Sodium (Chloride) 250 mls @ 165 mls/hr IV Q12H [facility] Stop: 08/15/17 09:59 Last Admin: 06/23/17 09:48 Dose: 165 mls/hr Colistimethate Sodium 150 mg/ (Sodium Chloride) 100 mls @ 100 mls/hr IV Q12HR [facility] Stop: 08/18/17 20:59 Last Admin: 06/23/17 08:00 Dose: 100 mls/hr Lactobacillus Rhamnosus (Culturelle) 1 each PO DAILY [facility] Stop: 08/08/17 08:59 Last Admin: 06/23/17 08:44 Dose: 1 each Lactulose (Cephulac) 30 gm GT Q6HR [facility] Stop: 08/08/17 17:59 Last Admin: 06/23/17 05:04 Dose: 30 gm Levetiracetam (Keppra) 1,000 mg GT Q8HR [facility] Stop: 08/06/17 20:59 Last Admin: 06/23/17 05:05 Dose: 1,000 mg Lorazepam (Ativan) 1 mg IVP Q6H PRN; Protocol PRN Reason: Agitation Stop: 08/13/17 23:17 Last Admin: 06/22/17 11:50 Dose: 1 mg Magnesium Hydroxide (Milk Of Magnesia) 30 ml GT HS PRN PRN Reason: Constipation Stop: 08/06/17 19:17 Magnesium Oxide (Mag-Oxide) 400 mg GT DAILY [place] Stop: 08/07/17 08:59 Last Admin: 06/23/17 08:45 Dose: 400 mg Metoprolol Tartrate (Lopressor) 100 mg GT Q12HR [facility] Stop: 08/06/17 20:59 Last Admin: 06/23/17 08:45 Dose: 100 mg Miscellaneous (Probiotic Screen) 1 ea PRN PRN PRN Reason: PROTOCOL Stop: 08/07/17 10:42 Miscellaneous (Vancomycin Iv Per Pharmacy) 1 ea PRN PRN PRN Reason: VANCO PER RX Stop: 08/20/17 13:12 Phytonadione (Mephyton) 10 mg GT DAILY [place] Stop: 08/07/17 19:59 Last Admin: 06/23/17 08:44 Dose: 10 mg Potassium Chloride (Potassium Chloride Elixir) 20 meq GT TID [place] Stop: 08/12/17 13:59 Last Admin: 06/23/17 08:44 Dose: 20 meq Propranolol HCl (Inderal) 20 mg GT TID [place] Stop: 08/06/17 20:59 Last Admin: 06/23/17 08:45 Dose: 20 mg Pyridoxine HCl (Vitamin B6) 100 mg GT DAILY [place] Stop: 08/07/17 08:59 Last Admin: 06/23/17 08:45 Dose: 100 mg Sodium Phosphate (Fleet Enema) 135 ml RC Q48H PRN PRN Reason: IF DULCOLAX IS INEFFECTIVE Stop: 08/06/17 19:17 Temazepam (Restoril) 15 mg GT HS PRN; Protocol PRN Reason: Insomnia Stop: 08/19/17 19:18 Last Admin: 06/21/17 20:08 Dose: 15 mg Thiamine HCl (Vitamin B1) 100 mg GT DAILY [facility] Stop: 08/07/17 08:59 Last Admin: 06/23/17 08:44 Dose: 100 mg Valproate Sodium (Depakene) 500 mg GT TID [facility] PRN Reason: Protocol Stop: 08/06/17 20:59 Last Admin: 06/23/17 08:44 Dose: 500 mg General: Alert, No acute distress HEENT: Atraumatic, PERRLA, EOMI, Mucous membr. moist/pink, Other (tracheostomy) Neck: Supple, +2 carotid pulse wo bruit, Other (tracheostomy) Cardiovascular: Regular rate, Normal S1, Normal S2 Lungs: Clear to auscultation, Other (tracheostomy) Abdomen: Bowel sounds, Soft, Other (gastric tube and rectal tube) Extremities: no Edema Neurological: Sensation intact Skin: no Rash Psych/Mental Status: Mood NL - Procedures Procedures: Procedures Procedure Code Date RESPIRATORY VENTILATION, GREATER THAN 96 CONSECUTIVE HOURS [id number] 06/07/17 Assessment/Plan - Problem List Patient Problems: All Active Problems ELEVATED NA+, AND BUN LEVELS (Acute) Status post tracheostomy (Acute) Z93.0 Status post tracheostomy (Acute) Z93.0 - Assessment Assessment: * SPLENOMEGALY. * THROMBOCYTOPENIA. Fluctuating, S/P TX * RESPIRATORY FAILURE. * ANEMIA OF CHRONIC DISEASE. hgb stable stool OB not done yet no need for tx Nutritional Asmnt/Malnutr-PDOC - Dietary Evaluation Malnutrition Findings (Please click <Entered> for more info): Nutritional Asmnt/Malnutrition Start: 06/09/17 11: 00 Text: Status: Complete Freq: Document 06/09/17 13:09 [facility] (Rec: 06/09/17 13:27 [facility] [id number]) Nutritional Asmnt/Malnutrition Patient General Information Nutritional Screening High Risk Screening Diagnosis Sepsis, UTI, right and left lower lobe infiltrate, pneumonia Pertinent Medical Hx/Surgical Hx Alcohol problem, liver disease , cirrhosis of the liver, hepatic comas, seizures, trachestomy, PEG, asthma, COPD Subjective Information Pt is a 52-year-old male from [facility] admitted with chief complaint of shortness of breath and falling oxygen saturation. Pt has tracheostomy to ventilator. Pt was unable to provide nutritional hx. Pt appears well nourished with no signs of muscle or fat depletion. Order to resume tube feeding; bag of Novosource Renal at bedside not yet started. Abdomen Ultrasound 06/09 notes some abdominal ascites. Current Diet Order/ Nutrition Support Novosource Renal at 55 ml/hr = 2640kcals, 120gm protein, 946ml free water Patient / S.O Can't verbalize diet edu Pertinent Medications Oscal with Vitamin D, Cefepime , D5w, Iron, Folate, Culturelle, MagOxide, Mephyton , KCl Elixir, Vitamin B6, Vitamin B1, Depakene, Vancomycin Pertinent Labs (06/09) Na 148H (improving), K 3L, Alkaline Phosphatase 171H, Ammonia 64H, Albumin 3.3L Nutritional Hx/Data Height 1.68 m Height (Calculated Centimeters) 167.6 Current Weight (lbs) 76.657 kg Weight (Calculated Kilograms) 76.7 Weight (Calculated Grams) 41744.1 Usual body Weight (lbs) 168 % Usual Body Weight 100 [place] Body Weight 142 % [place] Body Weight 119 Recent Weight Change No Weight Status Overweight GI Symptoms GI Symptoms Diarrhea Difficult in: Chewing Swallowing Food Allergies No Usual diet at home Nepro 1.8 (237 ml) QID 0900, 1300, 1700, 2100, sugar free ProStat 30 ml Skin Integrity/Comment: Vitor 12. Skin intact. Estimated Nutritional Goals BEE in Kcals: Using Current wt Calories/Kcals/Kg Based on current wt 76.8 kg with consideration of sepsis: Kcals Calculated 0906-1623 kcals/day (27-32 kcals/kg) to prevent wt gain with overwt status Protein: Using Current wt Protein g/kg: Based on current wt 76.8 kg with consideration of sepsis: Protein Calculated 92-115 gm/day (1.2-1.5 gm/kg) Fluid: ml Per MD/DO due to abnormal electrolytes Nutritional Problem 1. Problem Problem Excessive intake from enteral nutrition related to Etiology increased energy intake from calorically dense tube feeding formula as evidenced by Signs/Symptoms: current tube feeding meets 104 % of higher end of estimated calories needs. Malnutrition Alert Protein-Calorie Malnutrition N/A Is there a minimum of two criteria No selected? Query Text:Check all the applicable criteria. A minimum of two criteria are recommended for diagnosis of either severe or non-severe malnutrition. Malnutrition Related to Morbid Obesity Malnutrition related to morbid obesity No Intervention/Recommendation Recommendations by RD Decrease Calorie Intake Comments 1. Recommend decrease tube feeding Novosource Renal at goal rate of 50 ml/hr to provide 2400 kcals, 109 gm protein, and 860 ml free water per day. Monitor renal labs to prioritize protein needs. Expected Outcomes/Goals Expected Outcomes/Goals Provide pt with 100% of estimated nutritional needs. Physician Parameters for PEM Serum Albumin (g/dl) 3.1 - 3.4 (Mild)
--- NOTE | 2017-06-23 12:55 | General Progress Note ---
Subjective - Review of Systems Events since last encounter: patient awake ,noncommunicative state Subjective: on vent, afebrile nad Objective - Results Result Diagrams: 06/23/17 04:41 06/23/17 04:41 Recent Labs: Laboratory Last Values WBC 6.2 Th/cmm (4.8-10.8) D 06/23/17 04:41 RBC 3.17 Mil/cmm (4.30-5.70) L 06/23/17 04:41 Hgb 9.8 gm/dL (13.2-17.3) L 06/23/17 04:41 Hct 30.0 % (39.0-49.0) L 06/23/17 04:41 MCV 94.8 fl (80-99) 06/23/17 04:41 MCH 31.0 pg (26.0-30.0) H 06/23/17 04:41 MCHC Differential 32.7 pg (28.0-36.0) 06/23/17 04:41 RDW 14.7 % (11.5-20.0) 06/23/17 04:41 Plt Count 64 Th/cmm (150-400) L 06/23/17 04:41 MPV 10.4 fl 06/23/17 04:41 Neutrophils % 59.2 % (40.0-80.0) 06/23/17 04:41 Band Neutrophils % 3 % (0-10) 06/21/17 04:38 Lymphocytes % 24.9 % (20.0-50.0) 06/23/17 04:41 Monocytes % 12.4 % (2.0-10.0) H 06/23/17 04:41 Eosinophils % 3.3 % (0.0-5.0) 06/23/17 04:41 Basophils % 0.2 % (0.0-2.0) 06/23/17 04:41 Neutrophils (Manual) 44 % (40-80) 06/21/17 04:38 Lymphocytes 30 % (20-50) 06/21/17 04:38 Monocytes 17 % (2-10) H 06/21/17 04:38 Eosinophils 6 % (0-5) H 06/21/17 04:38 Basophils 0 % (0-3) 06/14/17 05:00 Metamyelocytes 2 % (0-0) H 06/13/17 07:20 Myelocytes 1 % 06/13/17 07:20 Nucleated RBCs 1.0 % (0-0) H 06/08/17 04:59 Platelet Estimate DECREASED PLATELETS (NORMAL) 06/21/17 04:38 Platelet Morphology PLATELET CLUMPS SEEN (NORMAL) 06/21/17 04:38 Polychromasia 1+ 06/18/17 04:59 Anisocytosis 1+ 06/21/17 04:38 RBC Morph Micro Appear ABNORMAL (NORMAL) 06/21/17 04:38 Specimen Source ARTERIAL 06/10/17 08:43 Sample Site Left Radial 06/10/17 08:43 pH 7.46 (7.35-7.45) H 06/10/17 08:43 pCO2 36.0 mmHg (35.0-45.0) 06/10/17 08:43 pO2 92.0 mmHg (80.0-100.0) 06/10/17 08:43 HCO3 26.4 mEq/L (20.0-26.0) H 06/10/17 08:43 Base Excess 1.9 mEq/L (-3.0-3.0) 06/10/17 08:43 O2 Saturation 98.0 % (92.0-100.0) 06/10/17 08:43 Jose L Test POSITIVE 06/10/17 08:43 Vent Rate 12 06/10/17 08:43 Inspired O2 40 06/10/17 08:43 Tidal Volume 500 06/10/17 08:43 PEEP 5 06/10/17 08:43 Pressure (ins/psv/peep) N/A 06/10/17 08:43 Critical Value SAURABH 06/10/17 08:43 Sodium 151 mEq/L (136-145) H 06/23/17 04:41 Potassium 3.6 mEq/L (3.5-5.1) 06/23/17 04:41 Chloride 123 mEq/L (98-107) H 06/23/17 04:41 Carbon Dioxide 26.5 mEq/L (21.0-31.0) 06/23/17 04:41 Anion Gap 5.1 (7.0-16.0) L 06/23/17 04:41 BUN 22 mg/dL (7-25) 06/23/17 04:41 Creatinine 0.6 mg/dL (0.7-1.3) L 06/23/17 04:41 Est GFR ( Amer) > 60.0 ml/min (>90) 06/23/17 04:41 Est GFR (Non-Af Amer) > 60.0 ml/min 06/23/17 04:41 BUN/Creatinine Ratio 36.7 06/23/17 04:41 Glucose 118 mg/dL (70-105) H 06/23/17 04:41 Plasma/Ser Osmolality 313 mOsmol/kg (275-295) H 06/09/17 05:07 Whole Bld Lactic Acid 1.51 mmol/L (0.60-1.99) 06/08/17 04:59 Calcium 10.7 mg/dL (8.6-10.3) H 06/23/17 04:41 Phosphorus 2.7 mg/dL (2.5-5.0) 06/08/17 04:59 Magnesium 1.6 mg/dL (1.9-2.7) L 06/14/17 05:00 Iron 71 ug/dL (38-169) 06/08/17 04:59 TIBC 173 ug/dL (250-450) L 06/08/17 04:59 Iron Saturation 41 % (15-55) 06/08/17 04:59 Unsaturated IBC 102 ug/dL (111-343) L 06/08/17 04:59 Ferritin 303 ng/mL (30-400) 06/08/17 04:59 Total Bilirubin 1.0 mg/dL (0.3-1.0) 06/23/17 04:41 Direct Bilirubin 0.29 mg/dL (0.0-0.2) H 06/16/17 04:40 AST 40 U/L (13-39) H 06/23/17 04:41 ALT 19 U/L (7-52) 06/23/17 04:41 Alkaline Phosphatase 191 U/L (34-104) H 06/23/17 04:41 Ammonia 76 umol/L (16-53) H 06/23/17 04:41 Troponin I 0.01 ng/mL (0.01-0.05) 06/07/17 13:28 B-Natriuretic Peptide 91.8 pg/mL (5.0-100.0) 06/07/17 13:28 Total Protein 8.5 gm/dL (6.0-8.3) H 06/23/17 04:41 Albumin 2.9 gm/dL (4.2-5.5) L 06/23/17 04:41 Globulin 5.6 gm/dL 06/23/17 04:41 Albumin/Globulin Ratio 0.5 (1.0-1.8) L 06/23/17 04:41 Vitamin B12 >1999 pg/mL (211-946) H 06/08/17 04:59 Folic Acid >20.0 ng/mL (>3.0) 06/08/17 04:59 Urine Source RANDOM 06/07/17 13:25 Urine Color NISA 06/07/17 13:25 Urine Clarity CLOUDY (CLEAR) 06/07/17 13:25 Urine pH 5.5 (4.6 - 8.0) 06/07/17 13:25 Ur Specific [place] 1.020 (1.005-1.030) 06/07/17 13:25 Urine Protein >=300 mg/dL (NEGATIVE) 06/07/17 13:25 Urine Glucose (UA) NEGATIVE mg/dL (NEGATIVE) 06/07/17 13:25 Urine Ketones 15 mg/dL (NEGATIVE) H 06/07/17 13:25 Urine Blood LARGE (NEGATIVE) H 06/07/17 13:25 Urine Nitrate POSITIVE (NEGATIVE) H 06/07/17 13:25 Urine Bilirubin MODERATE (NEGATIVE) H 06/07/17 13:25 Urine Urobilinogen 2.0 E.U./dL (0.2 - 1.0) 06/07/17 13:25 Ur Leukocyte Esterase MODERATE (NEGATIVE) H 06/07/17 13:25 Urine RBC >100 /hpf (0-5) H 06/07/17 13:25 Urine WBC 2-5 /hpf (0-5) H 06/07/17 13:25 Ur Epithelial Cells OCCASIONAL /lpf (FEW) 06/07/17 13:25 Urine Bacteria FEW /hpf (NONE SEEN) 06/07/17 13:25 Urine Osmolality 776 mOsmol/kg 06/09/17 05:53 Ur Random Sodium 119 mmol/L 06/08/17 18:16 Stool Occult Blood NEGATIVE (NEGATIVE) 06/22/17 07:15 Vancomycin Trough 17.9 ug/mL (10-20) 06/20/17 09:35 Blood Type O POSITIVE 06/09/17 09:30 Antibody Screen NEGATIVE 06/09/17 09:30 - Physical Exam Vitals and I&O: Vital Signs Temp 97.9 F 06/23/17 12:00 Pulse 72 06/23/17 12:00 Resp 17 06/23/17 12:00 BP 118/68 06/23/17 12:00 Pulse Ox 100 06/23/17 12:00 Intake & Output 06/22/17 06/23/17 06/23/17 18:59 06:59 18:59 Intake Total 1700 1000 Output Total 1180 1600 Balance 520 -600 Weight (lbs) 83.206 kg 83.007 kg Intake: Intake, IV Amount 450 450 Colistimethate 150 mg In 100 100 Sodium Chloride 0.9% 100 ml @ 100 mls/hr IV Q12HR [facility] Rx#:[id number] Meropenem 1 gm In Sodium 100 100 Chloride 0.9% 100 ml @ 100 mls/hr IV Q12H [facility] Rx #:[id number] Vancomycin HCl 1.25 gm In 250 250 Sodium Chloride 0.9% 250 ml @ 165 mls/hr IV Q12H [facility] Rx#:[id number] Tube Feeding 600 550 Other 650 Output: Urine 680 600 Stool 500 1000 Other: Stool Characteristics Liquid Liquid Liquid Brown Brown Brown Active Medications: Current Medications Albuterol/Ipratropium (Duoneb Neb) 3 ml HHN Q4HRT [facility] Stop: 08/07/17 18:59 Last Admin: 06/23/17 10:44 Dose: 3 ml Amlodipine Besylate (Norvasc) 5 mg GT Q12HR [facility] Stop: 08/06/17 20:59 Last Admin: 06/23/17 08:45 Dose: 5 mg Artificial Tears (Artificial Tears Ophth Soln) 2 drop EACH EYE Q6H PRN PRN Reason: eye dryness Stop: 08/06/17 20:54 Last Admin: 06/16/17 09:32 Dose: 2 drop Atorvastatin Calcium (Lipitor) 10 mg GT HS [facility] PRN Reason: Protocol Stop: 08/06/17 20:59 Last Admin: 06/22/17 20:07 Dose: 10 mg Bisacodyl (Dulcolax 10 Mg Supp) 10 mg RC DAILY PRN PRN Reason: Constipation Stop: 08/06/17 19:17 Budesonide (Pulmicort) 0.5 mg HHN BIDRT [facility] Stop: 08/07/17 18:59 Last Admin: 06/23/17 06:44 Dose: 0.5 mg Calcium/Vitamin D (Oscal W/Vitamin D) 1 tab GT DAILY [facility] Stop: 08/07/17 08:59 Last Admin: 06/23/17 08:43 Dose: 1 tab Chlorhexidine Gluconate (Peridex) 15 ml MM 0800,1999 [facility] Stop: 08/08/17 19:59 Last Admin: 06/23/17 08:43 Dose: 15 ml Clonazepam (Klonopin) 2 mg GT DAILY [facility] PRN Reason: Protocol Stop: 08/20/17 13:44 Last Admin: 06/23/17 08:43 Dose: 2 mg Folic Acid (Folate) 2.5 mg GT DAILY [facility] Stop: 08/07/17 08:59 Last Admin: 06/23/17 08:44 Dose: 2.5 mg Hydralazine HCl (Apresoline) 50 mg GT Q8HR [facility] Stop: 08/06/17 20:59 Last Admin: 06/23/17 05:05 Dose: 50 mg Meropenem 1 gm/ Sodium (Chloride) 100 mls @ 100 mls/hr IV Q12H [facility] Stop: 08/13/17 08:59 Last Admin: 06/23/17 08:51 Dose: 100 mls/hr Vancomycin HCl 1.25 gm/ Sodium (Chloride) 250 mls @ 165 mls/hr IV Q12H [facility] Stop: 08/15/17 09:59 Last Admin: 06/23/17 09:48 Dose: 165 mls/hr Colistimethate Sodium 150 mg/ (Sodium Chloride) 100 mls @ 100 mls/hr IV Q12HR [facility] Stop: 08/18/17 20:59 Last Admin: 06/23/17 08:00 Dose: 100 mls/hr Lactobacillus Rhamnosus (Culturelle) 1 each PO DAILY [facility] Stop: 08/08/17 08:59 Last Admin: 06/23/17 08:44 Dose: 1 each Lactulose (Cephulac) 30 gm GT Q6HR [facility] Stop: 08/08/17 17:59 Last Admin: 06/23/17 11:57 Dose: 30 gm Levetiracetam (Keppra) 1,000 mg GT Q8HR [facility] Stop: 08/06/17 20:59 Last Admin: 06/23/17 05:05 Dose: 1,000 mg Lorazepam (Ativan) 1 mg IVP Q6H PRN; Protocol PRN Reason: Agitation Stop: 08/13/17 23:17 Last Admin: 06/22/17 11:50 Dose: 1 mg Magnesium Hydroxide (Milk Of Magnesia) 30 ml GT HS PRN PRN Reason: Constipation Stop: 08/06/17 19:17 Magnesium Oxide (Mag-Oxide) 400 mg GT DAILY [facility] Stop: 08/07/17 08:59 Last Admin: 06/23/17 08:45 Dose: 400 mg Metoprolol Tartrate (Lopressor) 100 mg GT Q12HR [facility] Stop: 08/06/17 20:59 Last Admin: 06/23/17 08:45 Dose: 100 mg Miscellaneous (Probiotic Screen) 1 ea PRN PRN PRN Reason: PROTOCOL Stop: 08/07/17 10:42 Miscellaneous (Vancomycin Iv Per Pharmacy) 1 ea PRN PRN PRN Reason: VANCO PER RX Stop: 08/20/17 13:12 Phytonadione (Mephyton) 10 mg GT DAILY [facility] Stop: 08/07/17 19:59 Last Admin: 06/23/17 08:44 Dose: 10 mg Potassium Chloride (Potassium Chloride Elixir) 20 meq GT TID [facility] Stop: 08/12/17 13:59 Last Admin: 06/23/17 08:44 Dose: 20 meq Propranolol HCl (Inderal) 20 mg GT TID [facility] Stop: 08/06/17 20:59 Last Admin: 06/23/17 08:45 Dose: 20 mg Pyridoxine HCl (Vitamin B6) 100 mg GT DAILY [facility] Stop: 08/07/17 08:59 Last Admin: 06/23/17 08:45 Dose: 100 mg Sodium Phosphate (Fleet Enema) 135 ml RC Q48H PRN PRN Reason: IF DULCOLAX IS INEFFECTIVE Stop: 08/06/17 19:17 Temazepam (Restoril) 15 mg GT HS PRN; Protocol PRN Reason: Insomnia Stop: 08/19/17 19:18 Last Admin: 06/21/17 20:08 Dose: 15 mg Thiamine HCl (Vitamin B1) 100 mg GT DAILY [facility] Stop: 08/07/17 08:59 Last Admin: 06/23/17 08:44 Dose: 100 mg Valproate Sodium (Depakene) 500 mg GT TID [facility] PRN Reason: Protocol Stop: 08/06/17 20:59 Last Admin: 06/23/17 08:44 Dose: 500 mg General: Alert, No acute distress HEENT: Atraumatic, PERRLA, EOMI, Mucous membr. moist/pink, Other (tracheostomy) Neck: Supple, +2 carotid pulse wo bruit, Other (tracheostomy) Cardiovascular: Regular rate, Normal S1, Normal S2 Lungs: Clear to auscultation, Other (tracheostomy) Abdomen: Bowel sounds, Soft, Other (gastric tube and rectal tube) Extremities: no Edema Neurological: Sensation intact Skin: no Rash Psych/Mental Status: Mood NL - Procedures Procedures: Procedures Procedure Code Date RESPIRATORY VENTILATION, GREATER THAN 96 CONSECUTIVE HOURS [id number] 06/07/17 Assessment/Plan - Problem List Patient Problems: All Active Problems ELEVATED NA+, AND BUN LEVELS (Acute) Status post tracheostomy (Acute) Z93.0 Status post tracheostomy (Acute) Z93.0 - Assessment Assessment: s/p respiratory failure pnumonia s/p trch and peg trmors h/o alcoholism h/o sizures - Plan Plan: iv antibiotics vent support continue current plan of care am labs Nutritional Asmnt/Malnutr-PDOC - Dietary Evaluation Malnutrition Findings (Please click <Entered> for more info): Nutritional Asmnt/Malnutrition Start: 06/09/17 11: 00 Text: Status: Complete Freq: Document 06/09/17 13:09 [facility] (Rec: 06/09/17 13:27 [facility] [id number]) Nutritional Asmnt/Malnutrition Patient General Information Nutritional Screening High Risk Screening Diagnosis Sepsis, UTI, right and left lower lobe infiltrate, pneumonia Pertinent Medical Hx/Surgical Hx Alcohol problem, liver disease , cirrhosis of the liver, hepatic comas, seizures, trachestomy, PEG, asthma, COPD Subjective Information Pt is a 52-year-old male from [facility] admitted with chief complaint of shortness of breath and falling oxygen saturation. Pt has tracheostomy to ventilator. Pt was unable to provide nutritional hx. Pt appears well nourished with no signs of muscle or fat depletion. Order to resume tube feeding; bag of Novosource Renal at bedside not yet started. Abdomen Ultrasound 06/09 notes some abdominal ascites. Current Diet Order/ Nutrition Support Novosource Renal at 55 ml/hr = 2640kcals, 120gm protein, 946ml free water Patient / S.O Can't verbalize diet edu Pertinent Medications Oscal with Vitamin D, Cefepime , D5w, Iron, Folate, Culturelle, MagOxide, Mephyton , KCl Elixir, Vitamin B6, Vitamin B1, Depakene, Vancomycin Pertinent Labs (06/09) Na 148H (improving), K 3L, Alkaline Phosphatase 171H, Ammonia 64H, Albumin 3.3L Nutritional Hx/Data Height 1.68 m Height (Calculated Centimeters) 167.6 Current Weight (lbs) 76.657 kg Weight (Calculated Kilograms) 76.7 Weight (Calculated Grams) 51006.1 Usual body Weight (lbs) 168 % Usual Body Weight 100 [place] Body Weight 142 % [place] Body Weight 119 Recent Weight Change No Weight Status Overweight GI Symptoms GI Symptoms Diarrhea Difficult in: Chewing Swallowing Food Allergies No Usual diet at home Nepro 1.8 (237 ml) QID 0900, 1300, 1700, 2100, sugar free ProStat 30 ml Skin Integrity/Comment: Vitor 12. Skin intact. Estimated Nutritional Goals BEE in Kcals: Using Current wt Calories/Kcals/Kg Based on current wt 76.8 kg with consideration of sepsis: Kcals Calculated 6421-1489 kcals/day (27-32 kcals/kg) to prevent wt gain with overwt status Protein: Using Current wt Protein g/kg: Based on current wt 76.8 kg with consideration of sepsis: Protein Calculated 92-115 gm/day (1.2-1.5 gm/kg) Fluid: ml Per MD/DO due to abnormal electrolytes Nutritional Problem 1. Problem Problem Excessive intake from enteral nutrition related to Etiology increased energy intake from calorically dense tube feeding formula as evidenced by Signs/Symptoms: current tube feeding meets 104 % of higher end of estimated calories needs. Malnutrition Alert Protein-Calorie Malnutrition N/A Is there a minimum of two criteria No selected? Query Text:Check all the applicable criteria. A minimum of two criteria are recommended for diagnosis of either severe or non-severe malnutrition. Malnutrition Related to Morbid Obesity Malnutrition related to morbid obesity No Intervention/Recommendation Recommendations by RD Decrease Calorie Intake Comments 1. Recommend decrease tube feeding Novosource Renal at goal rate of 50 ml/hr to provide 2400 kcals, 109 gm protein, and 860 ml free water per day. Monitor renal labs to prioritize protein needs. Expected Outcomes/Goals Expected Outcomes/Goals Provide pt with 100% of estimated nutritional needs. Physician Parameters for PEM Serum Albumin (g/dl) 3.1 - 3.4 (Mild)
--- NOTE | 2017-06-23 13:22 | General Progress Note ---
Subjective - Review of Systems Service Date: 06/23/17 Subjective: drowsy, arousable, on vent Objective - Results Result Diagrams: 06/23/17 04:41 06/23/17 04:41 Recent Labs: Laboratory Last Values WBC 6.2 Th/cmm (4.8-10.8) D 06/23/17 04:41 RBC 3.17 Mil/cmm (4.30-5.70) L 06/23/17 04:41 Hgb 9.8 gm/dL (13.2-17.3) L 06/23/17 04:41 Hct 30.0 % (39.0-49.0) L 06/23/17 04:41 MCV 94.8 fl (80-99) 06/23/17 04:41 MCH 31.0 pg (26.0-30.0) H 06/23/17 04:41 MCHC Differential 32.7 pg (28.0-36.0) 06/23/17 04:41 RDW 14.7 % (11.5-20.0) 06/23/17 04:41 Plt Count 64 Th/cmm (150-400) L 06/23/17 04:41 MPV 10.4 fl 06/23/17 04:41 Neutrophils % 59.2 % (40.0-80.0) 06/23/17 04:41 Band Neutrophils % 3 % (0-10) 06/21/17 04:38 Lymphocytes % 24.9 % (20.0-50.0) 06/23/17 04:41 Monocytes % 12.4 % (2.0-10.0) H 06/23/17 04:41 Eosinophils % 3.3 % (0.0-5.0) 06/23/17 04:41 Basophils % 0.2 % (0.0-2.0) 06/23/17 04:41 Neutrophils (Manual) 44 % (40-80) 06/21/17 04:38 Lymphocytes 30 % (20-50) 06/21/17 04:38 Monocytes 17 % (2-10) H 06/21/17 04:38 Eosinophils 6 % (0-5) H 06/21/17 04:38 Basophils 0 % (0-3) 06/14/17 05:00 Metamyelocytes 2 % (0-0) H 06/13/17 07:20 Myelocytes 1 % 06/13/17 07:20 Nucleated RBCs 1.0 % (0-0) H 06/08/17 04:59 Platelet Estimate DECREASED PLATELETS (NORMAL) 06/21/17 04:38 Platelet Morphology PLATELET CLUMPS SEEN (NORMAL) 06/21/17 04:38 Polychromasia 1+ 06/18/17 04:59 Anisocytosis 1+ 06/21/17 04:38 RBC Morph Micro Appear ABNORMAL (NORMAL) 06/21/17 04:38 Specimen Source ARTERIAL 06/10/17 08:43 Sample Site Left Radial 06/10/17 08:43 pH 7.46 (7.35-7.45) H 06/10/17 08:43 pCO2 36.0 mmHg (35.0-45.0) 06/10/17 08:43 pO2 92.0 mmHg (80.0-100.0) 06/10/17 08:43 HCO3 26.4 mEq/L (20.0-26.0) H 06/10/17 08:43 Base Excess 1.9 mEq/L (-3.0-3.0) 06/10/17 08:43 O2 Saturation 98.0 % (92.0-100.0) 06/10/17 08:43 Jose L Test POSITIVE 06/10/17 08:43 Vent Rate 12 06/10/17 08:43 Inspired O2 40 06/10/17 08:43 Tidal Volume 500 06/10/17 08:43 PEEP 5 06/10/17 08:43 Pressure (ins/psv/peep) N/A 06/10/17 08:43 Critical Value SAURABH 06/10/17 08:43 Sodium 151 mEq/L (136-145) H 06/23/17 04:41 Potassium 3.6 mEq/L (3.5-5.1) 06/23/17 04:41 Chloride 123 mEq/L (98-107) H 06/23/17 04:41 Carbon Dioxide 26.5 mEq/L (21.0-31.0) 06/23/17 04:41 Anion Gap 5.1 (7.0-16.0) L 06/23/17 04:41 BUN 22 mg/dL (7-25) 06/23/17 04:41 Creatinine 0.6 mg/dL (0.7-1.3) L 06/23/17 04:41 Est GFR ( Amer) > 60.0 ml/min (>90) 06/23/17 04:41 Est GFR (Non-Af Amer) > 60.0 ml/min 06/23/17 04:41 BUN/Creatinine Ratio 36.7 06/23/17 04:41 Glucose 118 mg/dL (70-105) H 06/23/17 04:41 Plasma/Ser Osmolality 313 mOsmol/kg (275-295) H 06/09/17 05:07 Whole Bld Lactic Acid 1.51 mmol/L (0.60-1.99) 06/08/17 04:59 Calcium 10.7 mg/dL (8.6-10.3) H 06/23/17 04:41 Phosphorus 2.7 mg/dL (2.5-5.0) 06/08/17 04:59 Magnesium 1.6 mg/dL (1.9-2.7) L 06/14/17 05:00 Iron 71 ug/dL (38-169) 06/08/17 04:59 TIBC 173 ug/dL (250-450) L 06/08/17 04:59 Iron Saturation 41 % (15-55) 06/08/17 04:59 Unsaturated IBC 102 ug/dL (111-343) L 06/08/17 04:59 Ferritin 303 ng/mL (30-400) 06/08/17 04:59 Total Bilirubin 1.0 mg/dL (0.3-1.0) 06/23/17 04:41 Direct Bilirubin 0.29 mg/dL (0.0-0.2) H 06/16/17 04:40 AST 40 U/L (13-39) H 06/23/17 04:41 ALT 19 U/L (7-52) 06/23/17 04:41 Alkaline Phosphatase 191 U/L (34-104) H 06/23/17 04:41 Ammonia 76 umol/L (16-53) H 06/23/17 04:41 Troponin I 0.01 ng/mL (0.01-0.05) 06/07/17 13:28 B-Natriuretic Peptide 91.8 pg/mL (5.0-100.0) 06/07/17 13:28 Total Protein 8.5 gm/dL (6.0-8.3) H 06/23/17 04:41 Albumin 2.9 gm/dL (4.2-5.5) L 06/23/17 04:41 Globulin 5.6 gm/dL 06/23/17 04:41 Albumin/Globulin Ratio 0.5 (1.0-1.8) L 06/23/17 04:41 Vitamin B12 >1999 pg/mL (211-946) H 06/08/17 04:59 Folic Acid >20.0 ng/mL (>3.0) 06/08/17 04:59 Urine Source RANDOM 06/07/17 13:25 Urine Color NISA 06/07/17 13:25 Urine Clarity CLOUDY (CLEAR) 06/07/17 13:25 Urine pH 5.5 (4.6 - 8.0) 06/07/17 13:25 Ur Specific [place] 1.020 (1.005-1.030) 06/07/17 13:25 Urine Protein >=300 mg/dL (NEGATIVE) 06/07/17 13:25 Urine Glucose (UA) NEGATIVE mg/dL (NEGATIVE) 06/07/17 13:25 Urine Ketones 15 mg/dL (NEGATIVE) H 06/07/17 13:25 Urine Blood LARGE (NEGATIVE) H 06/07/17 13:25 Urine Nitrate POSITIVE (NEGATIVE) H 06/07/17 13:25 Urine Bilirubin MODERATE (NEGATIVE) H 06/07/17 13:25 Urine Urobilinogen 2.0 E.U./dL (0.2 - 1.0) 06/07/17 13:25 Ur Leukocyte Esterase MODERATE (NEGATIVE) H 06/07/17 13:25 Urine RBC >100 /hpf (0-5) H 06/07/17 13:25 Urine WBC 2-5 /hpf (0-5) H 06/07/17 13:25 Ur Epithelial Cells OCCASIONAL /lpf (FEW) 06/07/17 13:25 Urine Bacteria FEW /hpf (NONE SEEN) 06/07/17 13:25 Urine Osmolality 776 mOsmol/kg 06/09/17 05:53 Ur Random Sodium 119 mmol/L 06/08/17 18:16 Stool Occult Blood NEGATIVE (NEGATIVE) 06/22/17 07:15 Vancomycin Trough 17.9 ug/mL (10-20) 06/20/17 09:35 Blood Type O POSITIVE 06/09/17 09:30 Antibody Screen NEGATIVE 06/09/17 09:30 - Physical Exam Vitals and I&O: Vital Signs Temp 97.9 F 06/23/17 12:00 Pulse 75 06/23/17 13:11 Resp 17 06/23/17 12:00 BP 105/69 06/23/17 13:11 Pulse Ox 100 06/23/17 12:00 Intake & Output 06/22/17 06/23/17 06/23/17 18:59 06:59 18:59 Intake Total 1700 1000 450 Output Total 1180 1600 Balance 520 -600 450 Weight (lbs) 83.206 kg 83.007 kg Intake: Intake, IV Amount 450 450 450 Colistimethate 150 mg In 100 100 100 Sodium Chloride 0.9% 100 ml @ 100 mls/hr IV Q12HR [facility] Rx#:[id number] Meropenem 1 gm In Sodium 100 100 100 Chloride 0.9% 100 ml @ 100 mls/hr IV Q12H [facility] Rx #:[id number] Vancomycin HCl 1.25 gm In 250 250 250 Sodium Chloride 0.9% 250 ml @ 165 mls/hr IV Q12H [facility] Rx#:[id number] Tube Feeding 600 550 Other 650 Output: Urine 680 600 Stool 500 1000 Other: Stool Characteristics Liquid Liquid Liquid Brown Brown Brown Active Medications: Current Medications Albuterol/Ipratropium (Duoneb Neb) 3 ml HHN Q4HRT [facility] Stop: 08/07/17 18:59 Last Admin: 06/23/17 10:44 Dose: 3 ml Amlodipine Besylate (Norvasc) 5 mg GT Q12HR [place] Stop: 08/06/17 20:59 Last Admin: 06/23/17 08:45 Dose: 5 mg Artificial Tears (Artificial Tears Ophth Soln) 2 drop EACH EYE Q6H PRN PRN Reason: eye dryness Stop: 08/06/17 20:54 Last Admin: 06/16/17 09:32 Dose: 2 drop Atorvastatin Calcium (Lipitor) 10 mg GT HS [place] PRN Reason: Protocol Stop: 08/06/17 20:59 Last Admin: 06/22/17 20:07 Dose: 10 mg Bisacodyl (Dulcolax 10 Mg Supp) 10 mg RC DAILY PRN PRN Reason: Constipation Stop: 08/06/17 19:17 Budesonide (Pulmicort) 0.5 mg HHN BIDRT [place] Stop: 08/07/17 18:59 Last Admin: 06/23/17 06:44 Dose: 0.5 mg Calcium/Vitamin D (Oscal W/Vitamin D) 1 tab GT DAILY [place] Stop: 08/07/17 08:59 Last Admin: 06/23/17 08:43 Dose: 1 tab Chlorhexidine Gluconate (Peridex) 15 ml MM 0800,1999 [place] Stop: 08/08/17 19:59 Last Admin: 06/23/17 08:43 Dose: 15 ml Clonazepam (Klonopin) 2 mg GT DAILY [place] PRN Reason: Protocol Stop: 08/20/17 13:44 Last Admin: 06/23/17 08:43 Dose: 2 mg Folic Acid (Folate) 2.5 mg GT DAILY [place] Stop: 08/07/17 08:59 Last Admin: 06/23/17 08:44 Dose: 2.5 mg Hydralazine HCl (Apresoline) 50 mg GT Q8HR [place] Stop: 08/06/17 20:59 Last Admin: 06/23/17 13:10 Dose: Not Given Meropenem 1 gm/ Sodium (Chloride) 100 mls @ 100 mls/hr IV Q12H [place] Stop: 08/13/17 08:59 Last Infusion: 06/23/17 09:55 Dose: Infused Vancomycin HCl 1.25 gm/ Sodium (Chloride) 250 mls @ 165 mls/hr IV Q12H [place] Stop: 08/15/17 09:59 Last Infusion: 06/23/17 11:20 Dose: Infused Colistimethate Sodium 150 mg/ (Sodium Chloride) 100 mls @ 100 mls/hr IV Q12HR [place] Stop: 08/18/17 20:59 Last Infusion: 06/23/17 09:00 Dose: Infused Lactobacillus Rhamnosus (Culturelle) 1 each PO DAILY [place] Stop: 08/08/17 08:59 Last Admin: 06/23/17 08:44 Dose: 1 each Lactulose (Cephulac) 30 gm GT Q6HR [place] Stop: 08/08/17 17:59 Last Admin: 06/23/17 11:57 Dose: 30 gm Levetiracetam (Keppra) 1,000 mg GT Q8HR [place] Stop: 08/06/17 20:59 Last Admin: 06/23/17 13:09 Dose: 1,000 mg Lorazepam (Ativan) 1 mg IVP Q6H PRN; Protocol PRN Reason: Agitation Stop: 08/13/17 23:17 Last Admin: 06/23/17 13:09 Dose: 1 mg Magnesium Hydroxide (Milk Of Magnesia) 30 ml GT HS PRN PRN Reason: Constipation Stop: 08/06/17 19:17 Magnesium Oxide (Mag-Oxide) 400 mg GT DAILY [place] Stop: 08/07/17 08:59 Last Admin: 06/23/17 08:45 Dose: 400 mg Metoprolol Tartrate (Lopressor) 100 mg GT Q12HR [place] Stop: 08/06/17 20:59 Last Admin: 06/23/17 08:45 Dose: 100 mg Miscellaneous (Probiotic Screen) 1 [facility] PRN PRN PRN Reason: PROTOCOL Stop: 08/07/17 10:42 Miscellaneous (Vancomycin Iv Per Pharmacy) 1 ea PRN PRN PRN Reason: VANCO PER RX Stop: 08/20/17 13:12 Phytonadione (Mephyton) 10 mg GT DAILY [facility] Stop: 08/07/17 19:59 Last Admin: 06/23/17 08:44 Dose: 10 mg Potassium Chloride (Potassium Chloride Elixir) 20 meq GT TID [place] Stop: 08/12/17 13:59 Last Admin: 06/23/17 13:09 Dose: 20 meq Propranolol HCl (Inderal) 20 mg GT TID [place] Stop: 08/06/17 20:59 Last Admin: 06/23/17 13:11 Dose: Not Given Pyridoxine HCl (Vitamin B6) 100 mg GT DAILY [place] Stop: 08/07/17 08:59 Last Admin: 06/23/17 08:45 Dose: 100 mg Sodium Phosphate (Fleet Enema) 135 ml RC Q48H PRN PRN Reason: IF DULCOLAX IS INEFFECTIVE Stop: 08/06/17 19:17 Temazepam (Restoril) 15 mg GT HS PRN; Protocol PRN Reason: Insomnia Stop: 08/19/17 19:18 Last Admin: 06/21/17 20:08 Dose: 15 mg Thiamine HCl (Vitamin B1) 100 mg GT DAILY [facility] Stop: 08/07/17 08:59 Last Admin: 06/23/17 08:44 Dose: 100 mg Valproate Sodium (Depakene) 500 mg GT TID [place] PRN Reason: Protocol Stop: 08/06/17 20:59 Last Admin: 06/23/17 13:09 Dose: 500 mg General: Alert, No acute distress HEENT: Atraumatic, PERRLA, EOMI, Mucous membr. moist/pink, Other (tracheostomy) Neck: Supple, +2 carotid pulse wo bruit, Other (tracheostomy) Cardiovascular: Regular rate, Normal S1, Normal S2 Lungs: Clear to auscultation, Other (tracheostomy) Abdomen: Bowel sounds, Soft, Other (gastric tube and rectal tube) Extremities: no Edema Neurological: Sensation intact Skin: no Rash Psych/Mental Status: Mood NL - Procedures Procedures: Procedures Procedure Code Date RESPIRATORY VENTILATION, GREATER THAN 96 CONSECUTIVE HOURS [id number] 06/07/17 Assessment/Plan - Problem List Patient Problems: All Active Problems ELEVATED NA+, AND BUN LEVELS (Acute) Status post tracheostomy (Acute) Z93.0 Status post tracheostomy (Acute) Z93.0 - Assessment Assessment: Hypernatremia RFVD Sepsis etio? CLD Thrombocytopenia Anemia of CD Hypokalemia - Plan Plan: Lab - Result Diagrams 06/09/17 09:30 06/09/17 05:07 Current Medications Albuterol/Ipratropium (Duoneb Neb) 3 ml HHN Q4HR [facility] Stop: 08/06/17 19:59 Last Admin: 06/09/17 11:08 Dose: 3 ml Albuterol/Ipratropium (Duoneb Neb) 3 ml HHN Q4HRT [facility] Stop: 08/07/17 18:59 Amlodipine Besylate (Norvasc) 5 mg GT Q12HR [place] Stop: 08/06/17 20:59 Last Admin: 06/09/17 10:05 Dose: 5 mg Artificial Tears (Artificial Tears Ophth Soln) 2 drop EACH EYE Q6H PRN PRN Reason: eye dryness Stop: 08/06/17 20:54 Atorvastatin Calcium (Lipitor) 10 mg GT HS [place] PRN Reason: Protocol Stop: 08/06/17 20:59 Last Admin: 06/08/17 21:32 Dose: 10 mg Bisacodyl (Dulcolax 10 Mg Supp) 10 mg RC DAILY PRN PRN Reason: Constipation Stop: 08/06/17 19:17 Budesonide (Pulmicort) 0.5 mg HHN BIDRT [place] Stop: 08/07/17 18:59 Last Admin: 06/08/17 19:10 Dose: 0.5 mg Calcium/Vitamin D (Oscal W/Vitamin D) 1 tab GT DAILY [place] Stop: 08/07/17 08:59 Last Admin: 06/09/17 10:05 Dose: 1 tab Chlorhexidine Gluconate (Peridex) 15 ml MM Q12HR [place] Stop: 08/06/17 20:59 Last Admin: 06/09/17 09:00 Dose: 15 ml Clonazepam (Klonopin) 2 mg GT DAILY [place] Stop: 08/07/17 08:59 Last Admin: 06/09/17 10:05 Dose: 2 mg Docusate Sodium (Colace) 100 mg GT BID [place] Stop: 08/06/17 20:59 Last Admin: 06/09/17 09:00 Dose: Not Given Ferrous Sulfate (Iron) 300 mg GT BID [place] Stop: 08/06/17 20:59 Last Admin: 06/09/17 10:03 Dose: 300 mg Folic Acid (Folate) 2.5 mg GT DAILY [place] Stop: 08/07/17 08:59 Last Admin: 06/09/17 10:05 Dose: 2.5 mg Hydralazine HCl (Apresoline) 50 mg GT Q8HR [place] Stop: 08/06/17 20:59 Last Admin: 06/09/17 12:56 Dose: 50 mg Cefepime HCl 1 gm/ Dextrose 50 mls @ 100 mls/hr IV Q8H [place] Stop: 08/07/17 00:59 Last Infusion: 06/09/17 09:30 Dose: Infused Vancomycin HCl 1.25 gm/ Sodium (Chloride) 250 mls @ 165 mls/hr IV Q12H [facility] Stop: 08/07/17 09:59 Last Infusion: 06/09/17 11:31 Dose: Infused Dextrose (D5w) 1,000 mls @ 150 mls/hr IV .Q6H40M [place] Stop: 08/07/17 09:37 Last Admin: 06/09/17 07:33 Dose: 150 mls/hr Lactobacillus Rhamnosus (Culturelle) 1 each PO DAILY [place] Stop: 08/08/17 08:59 Last Admin: 06/09/17 10:04 Dose: 1 each Lactulose (Cephulac) 30 gm GT Q8HR [place] Stop: 08/06/17 20:59 Last Admin: 06/09/17 12:56 Dose: Not Given Levetiracetam (Keppra) 1,000 mg GT Q8HR [place] Stop: 08/06/17 20:59 Last Admin: 06/09/17 12:56 Dose: 1,000 mg Magnesium Hydroxide (Milk Of Magnesia) 30 ml GT HS PRN PRN Reason: Constipation Stop: 08/06/17 19:17 Magnesium Oxide (Mag-Oxide) 400 mg GT DAILY [place] Stop: 08/07/17 08:59 Last Admin: 06/09/17 10:04 Dose: 400 mg Metoprolol Tartrate (Lopressor) 100 mg GT Q12HR [place] Stop: 08/06/17 20:59 Last Admin: 06/09/17 10:04 Dose: 100 mg Miscellaneous (Vancomycin Iv Per Pharmacy) 1 ea PRN PRN PRN Reason: PROTOCOL Stop: 08/07/17 07:59 Miscellaneous (Probiotic Screen) 1 ea PRN PRN PRN Reason: PROTOCOL Stop: 08/07/17 10:42 Phytonadione (Mephyton) 10 mg GT DAILY [place] Stop: 08/07/17 19:59 Last Admin: 06/09/17 10:06 Dose: 10 mg Potassium Chloride (Potassium Chloride Elixir) 20 meq GT BID [place] Stop: 08/07/17 08:59 Last Admin: 06/09/17 11:30 Dose: 20 meq Propranolol HCl (Inderal) 20 mg GT TID [place] Stop: 08/06/17 20:59 Last Admin: 06/09/17 10:03 Dose: 20 mg Pyridoxine HCl (Vitamin B6) 100 mg GT DAILY [place] Stop: 08/07/17 08:59 Last Admin: 06/09/17 10:05 Dose: 100 mg Rifaximin (Xifaxan) 500 mg PO BID [place] Stop: 08/07/17 16:59 Last Admin: 06/09/17 10:06 Dose: 500 mg Sodium Phosphate (Fleet Enema) 135 ml RC Q48H PRN PRN Reason: IF DULCOLAX IS INEFFECTIVE Stop: 08/06/17 19:17 Thiamine HCl (Vitamin B1) 100 mg GT DAILY [place] Stop: 08/07/17 08:59 Last Admin: 06/09/17 10:05 Dose: 100 mg Valproate Sodium (Depakene) 500 mg GT TID [place] PRN Reason: Protocol Stop: 08/06/17 20:59 Last Admin: 06/09/17 10:03 Dose: 500 mg CXR: CM, B/L ATx electrolytes has improved off ivf, Na now 151 F/U electrolytes, cbc continue lactulose start D5W Lab - Result Diagrams 06/23/17 04:41 06/23/17 04:41 Nutritional Asmnt/Malnutr-PDOC - Dietary Evaluation Malnutrition Findings (Please click <Entered> for more info): Nutritional Asmnt/Malnutrition Start: 06/09/17 11: 00 Text: Status: Complete Freq: Document 06/09/17 13:09 [facility] (Rec: 06/09/17 13:27 [facility] [id number]) Nutritional Asmnt/Malnutrition Patient General Information Nutritional Screening High Risk Screening Diagnosis Sepsis, UTI, right and left lower lobe infiltrate, pneumonia Pertinent Medical Hx/Surgical Hx Alcohol problem, liver disease , cirrhosis of the liver, hepatic comas, seizures, trachestomy, PEG, asthma, COPD Subjective Information Pt is a 52-year-old male from [facility] admitted with chief complaint of shortness of breath and falling oxygen saturation. Pt has tracheostomy to ventilator. Pt was unable to provide nutritional hx. Pt appears well nourished with no signs of muscle or fat depletion. Order to resume tube feeding; bag of Novosource Renal at bedside not yet started. Abdomen Ultrasound 06/09 notes some abdominal ascites. Current Diet Order/ Nutrition Support Novosource Renal at 55 ml/hr = 2640kcals, 120gm protein, 946ml free water Patient / S.O Can't verbalize diet edu Pertinent Medications Oscal with Vitamin D, Cefepime , D5w, Iron, Folate, Culturelle, MagOxide, Mephyton , KCl Elixir, Vitamin B6, Vitamin B1, Depakene, Vancomycin Pertinent Labs (06/09) Na 148H (improving), K 3L, Alkaline Phosphatase 171H, Ammonia 64H, Albumin 3.3L Nutritional Hx/Data Height 1.68 m Height (Calculated Centimeters) 167.6 Current Weight (lbs) 76.657 kg Weight (Calculated Kilograms) 76.7 Weight (Calculated Grams) 13534.1 Usual body Weight (lbs) 168 % Usual Body Weight 100 [place] Body Weight 142 % [place] Body Weight 119 Recent Weight Change No Weight Status Overweight GI Symptoms GI Symptoms Diarrhea Difficult in: Chewing Swallowing Food Allergies No Usual diet at home Nepro 1.8 (237 ml) QID 0900, 1300, 1700, 2100, sugar free ProStat 30 ml Skin Integrity/Comment: Vitor 12. Skin intact. Estimated Nutritional Goals BEE in Kcals: Using Current wt Calories/Kcals/Kg Based on current wt 76.8 kg with consideration of sepsis: Kcals Calculated 8255-6035 kcals/day (27-32 kcals/kg) to prevent wt gain with overwt status Protein: Using Current wt Protein g/kg: Based on current wt 76.8 kg with consideration of sepsis: Protein Calculated 92-115 gm/day (1.2-1.5 gm/kg) Fluid: ml Per MD/DO due to abnormal electrolytes Nutritional Problem 1. Problem Problem Excessive intake from enteral nutrition related to Etiology increased energy intake from calorically dense tube feeding formula as evidenced by Signs/Symptoms: current tube feeding meets 104 % of higher end of estimated calories needs. Malnutrition Alert Protein-Calorie Malnutrition N/A Is there a minimum of two criteria No selected? Query Text:Check all the applicable criteria. A minimum of two criteria are recommended for diagnosis of either severe or non-severe malnutrition. Malnutrition Related to Morbid Obesity Malnutrition related to morbid obesity No Intervention/Recommendation Recommendations by RD Decrease Calorie Intake Comments 1. Recommend decrease tube feeding Novosource Renal at goal rate of 50 ml/hr to provide 2400 kcals, 109 gm protein, and 860 ml free water per day. Monitor renal labs to prioritize protein needs. Expected Outcomes/Goals Expected Outcomes/Goals Provide pt with 100% of estimated nutritional needs. Physician Parameters for PEM Serum Albumin (g/dl) 3.1 - 3.4 (Mild)
[2017-06-23] MEDS: Dextrose 5% 1,000 ML IV SCH (14:00)
[2017-06-23] MEDS: Atorvastatin Calcium 10 MG TAB GT SCH (20:29)
[2017-06-24] MEDS: Lactulose 10 Gm/15 mL 30mL UDC GT SCH ×4 (00:15→17:06)
[2017-06-24] MEDS: Albuterol/Ipratropium Neb 3 ML AERS HHN SCH ×6 (02:38→23:37)
[2017-06-24] MEDS: Levetiracetam 500 mg/5mL 5mL UDC GT SCH ×3 (05:01→20:13)
[2017-06-24 05:07] LABS: HEMATOCRIT 27.7 % (39.0-49.0); HEMOGLOBIN 9.4 gm/dL (13.2-17.3); MEAN CELL VOLUME 94.2 fl (80-99); MEAN CORPUSCULAR HGB CONC 33.9 pg (28.0-36.0); MEAN PLATELET VOLUME 9.6 fl; RED BLOOD COUNT 2.94 Mil/cmm (4.30-5.70); RED CELL DISTRIBUTION WIDTH 14.4 % (11.5-20.0)
[2017-06-24 05:21] LABS: ALB/GLOB RATIO 0.5 (1.0-1.8); ALKALINE PHOSPHATASE 170 U/L (34-104); BILIRUBIN,TOTAL 0.9 mg/dL (0.3-1.0); BUN - UREA NITROGEN 27 mg/dL (7-25); CALCIUM SERUM 10.8 mg/dL (8.6-10.3); CARBON DIOXIDE 27.6 mEq/L (21.0-31.0); CHLORIDE 121 mEq/L (98-107); CREATININE - SERUM 0.6 mg/dL (0.7-1.3); GLUCOSE 109 mg/dL (70-105); POTASSIUM SERUM 3.6 mEq/L (3.5-5.1); SGOT 36 U/L (13-39); SGPT/ALT 17 U/L (7-52); SODIUM SERUM 149 mEq/L (136-145)
[2017-06-24 05:48] LABS: WHITE BLOOD COUNT 4.9 Th/cmm (4.8-10.8)
[2017-06-24 05:49] LABS: PLATELET COUNT 56 Th/cmm (150-400)
[2017-06-24 05:50] LABS: BAND NEUTROPHILE 1 % (0-10); NEUTROPHILS 52 % (40-80)
[2017-06-24 05:51] LABS: ANISOCYTOSIS 1+; BASOPHIL 2 % (0-3); EOSINOPHIL 6 % (0-5); PLATELET ESTIMATE DECREASED PLATELETS (NORMAL); PLATELET MORPHOLOGY PLATELET CLUMPS SEEN (NORMAL)
[2017-06-24] MEDS: Budesonide 0.5 Mg/2 mL Ud HHN SCH ×2 (07:13→19:23)
[2017-06-24] MEDS: Potassium Chloride Elixir 20 mEq /15 mL UDC GT SCH ×3 (08:28→20:13)
[2017-06-24] MEDS: Lactobacillus Rhamnosus 10 Billion CFU Capsule PO SCH (08:28)
[2017-06-24] MEDS: Chlorhexidine Gluconate 0.12% 15mL Mouthwash MM SCH ×2 (08:29→20:15)
[2017-06-24] MEDS: Dextrose 5% 1,000 ML IV SCH ×2 (08:31→23:22)
[2017-06-24] MEDS: Calcium Carb/Vit D 500 mg/200 U Tab GT SCH (08:32)
--- NOTE | 2017-06-24 13:32 | General Progress Note ---
Subjective - Review of Systems Service Date: 06/24/17 Subjective: drowsy, arousable, on vent Objective - Results Result Diagrams: 06/24/17 04:50 06/24/17 04:50 Recent Labs: Laboratory Last Values WBC 4.9 Th/cmm (4.8-10.8) D 06/24/17 04:50 RBC 2.94 Mil/cmm (4.30-5.70) L 06/24/17 04:50 Hgb 9.4 gm/dL (13.2-17.3) L 06/24/17 04:50 Hct 27.7 % (39.0-49.0) L 06/24/17 04:50 MCV 94.2 fl (80-99) 06/24/17 04:50 MCH 32.0 pg (26.0-30.0) H 06/24/17 04:50 MCHC Differential 33.9 pg (28.0-36.0) 06/24/17 04:50 RDW 14.4 % (11.5-20.0) 06/24/17 04:50 Plt Count 56 Th/cmm (150-400) L 06/24/17 04:50 MPV 9.6 fl 06/24/17 04:50 Neutrophils % 59.2 % (40.0-80.0) 06/23/17 04:41 Band Neutrophils % 1 % (0-10) 06/24/17 04:50 Lymphocytes % 24.9 % (20.0-50.0) 06/23/17 04:41 Monocytes % 12.4 % (2.0-10.0) H 06/23/17 04:41 Eosinophils % 3.3 % (0.0-5.0) 06/23/17 04:41 Basophils % 0.2 % (0.0-2.0) 06/23/17 04:41 Neutrophils (Manual) 52 % (40-80) 06/24/17 04:50 Lymphocytes 30 % (20-50) 06/24/17 04:50 Monocytes 9 % (2-10) 06/24/17 04:50 Eosinophils 6 % (0-5) H 06/24/17 04:50 Basophils 2 % (0-3) 06/24/17 04:50 Metamyelocytes 2 % (0-0) H 06/13/17 07:20 Myelocytes 1 % 06/13/17 07:20 Nucleated RBCs 1.0 % (0-0) H 06/08/17 04:59 Platelet Estimate DECREASED PLATELETS (NORMAL) 06/24/17 04:50 Platelet Morphology PLATELET CLUMPS SEEN (NORMAL) 06/24/17 04:50 Polychromasia 1+ 06/18/17 04:59 Anisocytosis 1+ 06/24/17 04:50 RBC Morph Micro Appear ABNORMAL (NORMAL) 06/24/17 04:50 Specimen Source ARTERIAL 06/10/17 08:43 Sample Site Left Radial 06/10/17 08:43 pH 7.46 (7.35-7.45) H 06/10/17 08:43 pCO2 36.0 mmHg (35.0-45.0) 06/10/17 08:43 pO2 92.0 mmHg (80.0-100.0) 06/10/17 08:43 HCO3 26.4 mEq/L (20.0-26.0) H 06/10/17 08:43 Base Excess 1.9 mEq/L (-3.0-3.0) 06/10/17 08:43 O2 Saturation 98.0 % (92.0-100.0) 06/10/17 08:43 Jose L Test POSITIVE 06/10/17 08:43 Vent Rate 12 06/10/17 08:43 Inspired O2 40 06/10/17 08:43 Tidal Volume 500 06/10/17 08:43 PEEP 5 06/10/17 08:43 Pressure (ins/psv/peep) N/A 06/10/17 08:43 Critical Value SAURABH 06/10/17 08:43 Sodium 149 mEq/L (136-145) H 06/24/17 04:50 Potassium 3.6 mEq/L (3.5-5.1) 06/24/17 04:50 Chloride 121 mEq/L (98-107) H 06/24/17 04:50 Carbon Dioxide 27.6 mEq/L (21.0-31.0) 06/24/17 04:50 Anion Gap 4.0 (7.0-16.0) L 06/24/17 04:50 BUN 27 mg/dL (7-25) H 06/24/17 04:50 Creatinine 0.6 mg/dL (0.7-1.3) L 06/24/17 04:50 Est GFR ( Amer) > 60.0 ml/min (>90) 06/24/17 04:50 Est GFR (Non-Af Amer) > 60.0 ml/min 06/24/17 04:50 BUN/Creatinine Ratio 45.0 06/24/17 04:50 Glucose 109 mg/dL (70-105) H 06/24/17 04:50 Plasma/Ser Osmolality 313 mOsmol/kg (275-295) H 06/09/17 05:07 Whole Bld Lactic Acid 1.51 mmol/L (0.60-1.99) 06/08/17 04:59 Calcium 10.8 mg/dL (8.6-10.3) H 06/24/17 04:50 Phosphorus 2.7 mg/dL (2.5-5.0) 06/08/17 04:59 Magnesium 1.6 mg/dL (1.9-2.7) L 06/14/17 05:00 Iron 71 ug/dL (38-169) 06/08/17 04:59 TIBC 173 ug/dL (250-450) L 06/08/17 04:59 Iron Saturation 41 % (15-55) 06/08/17 04:59 Unsaturated IBC 102 ug/dL (111-343) L 06/08/17 04:59 Ferritin 303 ng/mL (30-400) 06/08/17 04:59 Total Bilirubin 0.9 mg/dL (0.3-1.0) 06/24/17 04:50 Direct Bilirubin 0.29 mg/dL (0.0-0.2) H 06/16/17 04:40 AST 36 U/L (13-39) 06/24/17 04:50 ALT 17 U/L (7-52) 06/24/17 04:50 Alkaline Phosphatase 170 U/L (34-104) H 06/24/17 04:50 Ammonia 74 umol/L (16-53) H 06/24/17 04:50 Troponin I 0.01 ng/mL (0.01-0.05) 06/07/17 13:28 B-Natriuretic Peptide 91.8 pg/mL (5.0-100.0) 06/07/17 13:28 Total Protein 7.9 gm/dL (6.0-8.3) 06/24/17 04:50 Albumin 2.6 gm/dL (4.2-5.5) L 06/24/17 04:50 Globulin 5.3 gm/dL 06/24/17 04:50 Albumin/Globulin Ratio 0.5 (1.0-1.8) L 06/24/17 04:50 Vitamin B12 >1999 pg/mL (211-946) H 06/08/17 04:59 Folic Acid >20.0 ng/mL (>3.0) 06/08/17 04:59 Urine Source RANDOM 06/07/17 13:25 Urine Color NISA 06/07/17 13:25 Urine Clarity CLOUDY (CLEAR) 06/07/17 13:25 Urine pH 5.5 (4.6 - 8.0) 06/07/17 13:25 Ur Specific [place] 1.020 (1.005-1.030) 06/07/17 13:25 Urine Protein >=300 mg/dL (NEGATIVE) 06/07/17 13:25 Urine Glucose (UA) NEGATIVE mg/dL (NEGATIVE) 06/07/17 13:25 Urine Ketones 15 mg/dL (NEGATIVE) H 06/07/17 13:25 Urine Blood LARGE (NEGATIVE) H 06/07/17 13:25 Urine Nitrate POSITIVE (NEGATIVE) H 06/07/17 13:25 Urine Bilirubin MODERATE (NEGATIVE) H 06/07/17 13:25 Urine Urobilinogen 2.0 E.U./dL (0.2 - 1.0) 06/07/17 13:25 Ur Leukocyte Esterase MODERATE (NEGATIVE) H 06/07/17 13:25 Urine RBC >100 /hpf (0-5) H 06/07/17 13:25 Urine WBC 2-5 /hpf (0-5) H 06/07/17 13:25 Ur Epithelial Cells OCCASIONAL /lpf (FEW) 06/07/17 13:25 Urine Bacteria FEW /hpf (NONE SEEN) 06/07/17 13:25 Urine Osmolality 776 mOsmol/kg 06/09/17 05:53 Ur Random Sodium 119 mmol/L 06/08/17 18:16 Stool Occult Blood NEGATIVE (NEGATIVE) 06/22/17 07:15 Vancomycin Trough 22.8 ug/mL (10-20) H 06/24/17 09:08 Blood Type O POSITIVE 06/09/17 09:30 Antibody Screen NEGATIVE 06/09/17 09:30 - Physical Exam Vitals and I&O: Vital Signs Temp 96.9 F 06/24/17 12:00 Pulse 72 06/24/17 13:21 Resp 13 06/24/17 12:00 BP 92/62 06/24/17 13:21 Pulse Ox 98 06/24/17 12:00 Intake & Output 06/23/17 06/24/17 06/24/17 18:59 06:59 18:59 Intake Total 1750 1850 Output Total 550 900 Balance 1200 950 Weight (lbs) 83.631 kg 83.642 kg Intake: Intake, IV Amount 450 1250 Colistimethate 150 mg In 100 Sodium Chloride 0.9% 100 ml @ 100 mls/hr IV Q12HR [facility] Rx#:[id number] Dextrose 5% 1,000 ml @ 75 1000 mls/hr IV .[id number] [facility] Rx#:[id number] Meropenem 1 gm In Sodium 100 Chloride 0.9% 100 ml @ 100 mls/hr IV Q12H [facility] Rx #:[id number] Vancomycin HCl 1.25 gm In 250 250 Sodium Chloride 0.9% 250 ml @ 165 mls/hr IV Q12H [facility] Rx#:[id number] Tube Feeding 600 600 Other 700 Output: Urine 550 600 Stool 300 Other: # Bowel Movements 350 Stool Characteristics Liquid Liquid Liquid Brown Brown Brown Active Medications: Current Medications Albuterol/Ipratropium (Duoneb Neb) 3 ml HHN Q4HRT [facility] Stop: 08/07/17 18:59 Last Admin: 06/24/17 11:01 Dose: 3 ml Amlodipine Besylate (Norvasc) 5 mg GT Q12HR [facility] Stop: 08/06/17 20:59 Last Admin: 06/24/17 08:31 Dose: Not Given Artificial Tears (Artificial Tears Ophth Soln) 2 drop EACH EYE Q6H PRN PRN Reason: eye dryness Stop: 08/06/17 20:54 Last Admin: 06/16/17 09:32 Dose: 2 drop Atorvastatin Calcium (Lipitor) 10 mg GT HS [place] PRN Reason: Protocol Stop: 08/06/17 20:59 Last Admin: 06/23/17 20:29 Dose: 10 mg Bisacodyl (Dulcolax 10 Mg Supp) 10 mg RC DAILY PRN PRN Reason: Constipation Stop: 08/06/17 19:17 Budesonide (Pulmicort) 0.5 mg HHN BIDRT [facility] Stop: 08/07/17 18:59 Last Admin: 06/24/17 07:13 Dose: 0.5 mg Calcium/Vitamin D (Oscal W/Vitamin D) 1 tab GT DAILY [facility] Stop: 08/07/17 08:59 Last Admin: 06/24/17 08:32 Dose: 1 tab Chlorhexidine Gluconate (Peridex) 15 ml MM 0800,2000 [facility] Stop: 08/08/17 19:59 Last Admin: 06/24/17 08:29 Dose: 15 ml Clonazepam (Klonopin) 2 mg GT DAILY [facility] PRN Reason: Protocol Stop: 08/20/17 13:44 Last Admin: 06/24/17 08:27 Dose: 2 mg Folic Acid (Folate) 2.5 mg GT DAILY [facility] Stop: 08/07/17 08:59 Last Admin: 06/24/17 08:27 Dose: 2.5 mg Hydralazine HCl (Apresoline) 50 mg GT Q8HR [facility] Stop: 08/06/17 20:59 Last Admin: 06/24/17 13:20 Dose: Not Given Dextrose (D5w) 1,000 mls @ 75 mls/hr IV .[id number] [facility] Stop: 08/22/17 13:22 Last Admin: 06/24/17 08:31 Dose: 75 mls/hr Vancomycin HCl 1.25 gm/ Sodium (Chloride) 250 mls @ 165 mls/hr IV Q18H [facility] Stop: 06/24/17 23:59 Vancomycin HCl 1.25 gm/ Sodium (Chloride) 250 mls @ 165 mls/hr IV Q12H [facility] Stop: 08/24/17 09:59 Lactobacillus Rhamnosus (Culturelle) 1 each PO DAILY [facility] Stop: 08/08/17 08:59 Last Admin: 06/24/17 08:28 Dose: 1 each Lactulose (Cephulac) 30 gm GT Q6HR [facility] Stop: 08/08/17 17:59 Last Admin: 06/24/17 11:03 Dose: 30 gm Levetiracetam (Keppra) 1,000 mg GT Q8HR [facility] Stop: 08/06/17 20:59 Last Admin: 06/24/17 13:21 Dose: 1,000 mg Lorazepam (Ativan) 1 mg IVP Q6H PRN; Protocol PRN Reason: Agitation Stop: 08/13/17 23:17 Last Admin: 06/24/17 10:55 Dose: 1 mg Magnesium Hydroxide (Milk Of Magnesia) 30 ml GT HS PRN PRN Reason: Constipation Stop: 08/06/17 19:17 Magnesium Oxide (Mag-Oxide) 400 mg GT DAILY [place] Stop: 08/07/17 08:59 Last Admin: 06/24/17 08:28 Dose: 400 mg Metoprolol Tartrate (Lopressor) 100 mg GT Q12HR [facility] Stop: 08/06/17 20:59 Last Admin: 06/24/17 08:32 Dose: 100 mg Miscellaneous (Probiotic Screen) 1 [facility] PRN PRN PRN Reason: PROTOCOL Stop: 08/07/17 10:42 Miscellaneous (Vancomycin Iv Per Pharmacy) 1 [facility] PRN PRN PRN Reason: VANCO PER RX Stop: 08/20/17 13:12 Phytonadione (Mephyton) 10 mg GT DAILY [place] Stop: 08/07/17 19:59 Last Admin: 06/24/17 08:27 Dose: 10 mg Potassium Chloride (Potassium Chloride Elixir) 20 meq GT TID [place] Stop: 08/12/17 13:59 Last Admin: 06/24/17 13:21 Dose: 20 meq Propranolol HCl (Inderal) 20 mg GT TID [place] Stop: 08/06/17 20:59 Last Admin: 06/24/17 13:21 Dose: Not Given Pyridoxine HCl (Vitamin B6) 100 mg GT DAILY [facility] Stop: 08/07/17 08:59 Last Admin: 06/24/17 08:28 Dose: 100 mg Sodium Phosphate (Fleet Enema) 135 ml RC Q48H PRN PRN Reason: IF DULCOLAX IS INEFFECTIVE Stop: 08/06/17 19:17 Temazepam (Restoril) 15 mg GT HS PRN; Protocol PRN Reason: Insomnia Stop: 08/19/17 19:18 Last Admin: 06/21/17 20:08 Dose: 15 mg Thiamine HCl (Vitamin B1) 100 mg GT DAILY [facility] Stop: 08/07/17 08:59 Last Admin: 06/24/17 08:28 Dose: 100 mg Valproate Sodium (Depakene) 500 mg GT TID [place] PRN Reason: Protocol Stop: 08/06/17 20:59 Last Admin: 06/24/17 13:21 Dose: 500 mg General: Alert, No acute distress HEENT: Atraumatic, PERRLA, EOMI, Mucous membr. moist/pink, Other (tracheostomy) Neck: Supple, +2 carotid pulse wo bruit, Other (tracheostomy) Cardiovascular: Regular rate, Normal S1, Normal S2 Lungs: Clear to auscultation, Other (tracheostomy) Abdomen: Bowel sounds, Soft, Distended, Other (gastric tube and rectal tube) Extremities: no Edema Neurological: Sensation intact Skin: no Rash Psych/Mental Status: Mood NL - Procedures Procedures: Procedures Procedure Code Date RESPIRATORY VENTILATION, GREATER THAN 96 CONSECUTIVE HOURS [id number] 06/07/17 Assessment/Plan - Problem List Patient Problems: All Active Problems ELEVATED NA+, AND BUN LEVELS (Acute) Status post tracheostomy (Acute) Z93.0 Status post tracheostomy (Acute) Z93.0 - Assessment Assessment: Hypernatremia RFVD Sepsis etio? CLD Thrombocytopenia Anemia of CD Hypokalemia - Plan Plan: Lab - Result Diagrams 06/09/17 09:30 06/09/17 05:07 Current Medications Albuterol/Ipratropium (Duoneb Neb) 3 ml HHN Q4HR [facility] Stop: 08/06/17 19:59 Last Admin: 06/09/17 11:08 Dose: 3 ml Albuterol/Ipratropium (Duoneb Neb) 3 ml HHN Q4HRT [facility] Stop: 08/07/17 18:59 Amlodipine Besylate (Norvasc) 5 mg GT Q12HR [facility] Stop: 08/06/17 20:59 Last Admin: 06/09/17 10:05 Dose: 5 mg Artificial Tears (Artificial Tears Ophth Soln) 2 drop EACH EYE Q6H PRN PRN Reason: eye dryness Stop: 08/06/17 20:54 Atorvastatin Calcium (Lipitor) 10 mg GT HS [place] PRN Reason: Protocol Stop: 08/06/17 20:59 Last Admin: 06/08/17 21:32 Dose: 10 mg Bisacodyl (Dulcolax 10 Mg Supp) 10 mg RC DAILY PRN PRN Reason: Constipation Stop: 08/06/17 19:17 Budesonide (Pulmicort) 0.5 mg HHN BIDRT [facility] Stop: 08/07/17 18:59 Last Admin: 06/08/17 19:10 Dose: 0.5 mg Calcium/Vitamin D (Oscal W/Vitamin D) 1 tab GT DAILY [facility] Stop: 08/07/17 08:59 Last Admin: 06/09/17 10:05 Dose: 1 tab Chlorhexidine Gluconate (Peridex) 15 ml MM Q12HR [facility] Stop: 08/06/17 20:59 Last Admin: 06/09/17 09:00 Dose: 15 ml Clonazepam (Klonopin) 2 mg GT DAILY [place] Stop: 08/07/17 08:59 Last Admin: 06/09/17 10:05 Dose: 2 mg Docusate Sodium (Colace) 100 mg GT BID [place] Stop: 08/06/17 20:59 Last Admin: 06/09/17 09:00 Dose: Not Given Ferrous Sulfate (Iron) 300 mg GT BID [place] Stop: 08/06/17 20:59 Last Admin: 06/09/17 10:03 Dose: 300 mg Folic Acid (Folate) 2.5 mg GT DAILY [facility] Stop: 08/07/17 08:59 Last Admin: 06/09/17 10:05 Dose: 2.5 mg Hydralazine HCl (Apresoline) 50 mg GT Q8HR [facility] Stop: 08/06/17 20:59 Last Admin: 06/09/17 12:56 Dose: 50 mg Cefepime HCl 1 gm/ Dextrose 50 mls @ 100 mls/hr IV Q8H [facility] Stop: 08/07/17 00:59 Last Infusion: 06/09/17 09:30 Dose: Infused Vancomycin HCl 1.25 gm/ Sodium (Chloride) 250 mls @ 165 mls/hr IV Q12H [facility] Stop: 08/07/17 09:59 Last Infusion: 06/09/17 11:31 Dose: Infused Dextrose (D5w) 1,000 mls @ 150 mls/hr IV .Q6H40M [facility] Stop: 08/07/17 09:37 Last Admin: 06/09/17 07:33 Dose: 150 mls/hr Lactobacillus Rhamnosus (Culturelle) 1 each PO DAILY [facility] Stop: 08/08/17 08:59 Last Admin: 06/09/17 10:04 Dose: 1 each Lactulose (Cephulac) 30 gm GT Q8HR [facility] Stop: 08/06/17 20:59 Last Admin: 06/09/17 12:56 Dose: Not Given Levetiracetam (Keppra) 1,000 mg GT Q8HR [facility] Stop: 08/06/17 20:59 Last Admin: 06/09/17 12:56 Dose: 1,000 mg Magnesium Hydroxide (Milk Of Magnesia) 30 ml GT HS PRN PRN Reason: Constipation Stop: 08/06/17 19:17 Magnesium Oxide (Mag-Oxide) 400 mg GT DAILY [facility] Stop: 08/07/17 08:59 Last Admin: 06/09/17 10:04 Dose: 400 mg Metoprolol Tartrate (Lopressor) 100 mg GT Q12HR [facility] Stop: 08/06/17 20:59 Last Admin: 06/09/17 10:04 Dose: 100 mg Miscellaneous (Vancomycin Iv Per Pharmacy) 1 ea PRN PRN PRN Reason: PROTOCOL Stop: 08/07/17 07:59 Miscellaneous (Probiotic Screen) 1 ea PRN PRN PRN Reason: PROTOCOL Stop: 08/07/17 10:42 Phytonadione (Mephyton) 10 mg GT DAILY [facility] Stop: 08/07/17 19:59 Last Admin: 06/09/17 10:06 Dose: 10 mg Potassium Chloride (Potassium Chloride Elixir) 20 meq GT BID [place] Stop: 08/07/17 08:59 Last Admin: 06/09/17 11:30 Dose: 20 meq Propranolol HCl (Inderal) 20 mg GT TID [place] Stop: 08/06/17 20:59 Last Admin: 06/09/17 10:03 Dose: 20 mg Pyridoxine HCl (Vitamin B6) 100 mg GT DAILY [facility] Stop: 08/07/17 08:59 Last Admin: 06/09/17 10:05 Dose: 100 mg Rifaximin (Xifaxan) 500 mg PO BID [place] Stop: 08/07/17 16:59 Last Admin: 06/09/17 10:06 Dose: 500 mg Sodium Phosphate (Fleet Enema) 135 ml RC Q48H PRN PRN Reason: IF DULCOLAX IS INEFFECTIVE Stop: 08/06/17 19:17 Thiamine HCl (Vitamin B1) 100 mg GT DAILY [place] Stop: 08/07/17 08:59 Last Admin: 06/09/17 10:05 Dose: 100 mg Valproate Sodium (Depakene) 500 mg GT TID [place] PRN Reason: Protocol Stop: 08/06/17 20:59 Last Admin: 06/09/17 10:03 Dose: 500 mg CXR: CM, B/L ATx electrolytes has improved On D5W @ 75 ml/hr, Na down to 149 F/U electrolytes, cbc continue lactulose Lab - Result Diagrams 06/23/17 04:41 06/23/17 04:41 Nutritional Asmnt/Malnutr-PDOC - Dietary Evaluation Malnutrition Findings (Please click <Entered> for more info): Nutritional Asmnt/Malnutrition Start: 06/09/17 11: 00 Text: Status: Complete Freq: Document 06/09/17 13:09 [facility] (Rec: 06/09/17 13:27 [facility] [id number]) Nutritional Asmnt/Malnutrition Patient General Information Nutritional Screening High Risk Screening Diagnosis Sepsis, UTI, right and left lower lobe infiltrate, pneumonia Pertinent Medical Hx/Surgical Hx Alcohol problem, liver disease , cirrhosis of the liver, hepatic comas, seizures, trachestomy, PEG, asthma, COPD Subjective Information Pt is a 52-year-old male from [facility] admitted with chief complaint of shortness of breath and falling oxygen saturation. Pt has tracheostomy to ventilator. Pt was unable to provide nutritional hx. Pt appears well nourished with no signs of muscle or fat depletion. Order to resume tube feeding; bag of Novosource Renal at bedside not yet started. Abdomen Ultrasound 06/09 notes some abdominal ascites. Current Diet Order/ Nutrition Support Novosource Renal at 55 ml/hr = 2640kcals, 120gm protein, 946ml free water Patient / S.O Can't verbalize diet edu Pertinent Medications Oscal with Vitamin D, Cefepime , D5w, Iron, Folate, Culturelle, MagOxide, Mephyton , KCl Elixir, Vitamin B6, Vitamin B1, Depakene, Vancomycin Pertinent Labs (06/09) Na 148H (improving), K 3L, Alkaline Phosphatase 171H, Ammonia 64H, Albumin 3.3L Nutritional Hx/Data Height 1.68 m Height (Calculated Centimeters) 167.6 Current Weight (lbs) 76.657 kg Weight (Calculated Kilograms) 76.7 Weight (Calculated Grams) 90210.1 Usual body Weight (lbs) 168 % Usual Body Weight 100 [place] Body Weight 142 % [place] Body Weight 119 Recent Weight Change No Weight Status Overweight GI Symptoms GI Symptoms Diarrhea Difficult in: Chewing Swallowing Food Allergies No Usual diet at home Nepro 1.8 (237 ml) QID 0900, 1300, 1700, 2100, sugar free ProStat 30 ml Skin Integrity/Comment: Vitor 12. Skin intact. Estimated Nutritional Goals BEE in Kcals: Using Current wt Calories/Kcals/Kg Based on current wt 76.8 kg with consideration of sepsis: Kcals Calculated [id number] kcals/day (27-32 kcals/kg) to prevent wt gain with overwt status Protein: Using Current wt Protein g/kg: Based on current wt 76.8 kg with consideration of sepsis: Protein Calculated 92-115 gm/day (1.2-1.5 gm/kg) Fluid: ml Per MD/DO due to abnormal electrolytes Nutritional Problem 1. Problem Problem Excessive intake from enteral nutrition related to Etiology increased energy intake from calorically dense tube feeding formula as evidenced by Signs/Symptoms: current tube feeding meets 104 % of higher end of estimated calories needs. Malnutrition Alert Protein-Calorie Malnutrition N/A Is there a minimum of two criteria No selected? Query Text:Check all the applicable criteria. A minimum of two criteria are recommended for diagnosis of either severe or non-severe malnutrition. Malnutrition Related to Morbid Obesity Malnutrition related to morbid obesity No Intervention/Recommendation Recommendations by RD Decrease Calorie Intake Comments 1. Recommend decrease tube feeding Novosource Renal at goal rate of 50 ml/hr to provide 2400 kcals, 109 gm protein, and 860 ml free water per day. Monitor renal labs to prioritize protein needs. Expected Outcomes/Goals Expected Outcomes/Goals Provide pt with 100% of estimated nutritional needs. Physician Parameters for PEM Serum Albumin (g/dl) 3.1 - 3.4 (Mild)
--- NOTE | 2017-06-24 15:22 | General Progress Note ---
Subjective - Review of Systems Events since last encounter: patient no distres on vent Subjective: on vent, afebrile nad Objective - Results Result Diagrams: 06/24/17 04:50 06/24/17 04:50 Recent Labs: Laboratory Last Values WBC 4.9 Th/cmm (4.8-10.8) D 06/24/17 04:50 RBC 2.94 Mil/cmm (4.30-5.70) L 06/24/17 04:50 Hgb 9.4 gm/dL (13.2-17.3) L 06/24/17 04:50 Hct 27.7 % (39.0-49.0) L 06/24/17 04:50 MCV 94.2 fl (80-99) 06/24/17 04:50 MCH 32.0 pg (26.0-30.0) H 06/24/17 04:50 MCHC Differential 33.9 pg (28.0-36.0) 06/24/17 04:50 RDW 14.4 % (11.5-20.0) 06/24/17 04:50 Plt Count 56 Th/cmm (150-400) L 06/24/17 04:50 MPV 9.6 fl 06/24/17 04:50 Neutrophils % 59.2 % (40.0-80.0) 06/23/17 04:41 Band Neutrophils % 1 % (0-10) 06/24/17 04:50 Lymphocytes % 24.9 % (20.0-50.0) 06/23/17 04:41 Monocytes % 12.4 % (2.0-10.0) H 06/23/17 04:41 Eosinophils % 3.3 % (0.0-5.0) 06/23/17 04:41 Basophils % 0.2 % (0.0-2.0) 06/23/17 04:41 Neutrophils (Manual) 52 % (40-80) 06/24/17 04:50 Lymphocytes 30 % (20-50) 06/24/17 04:50 Monocytes 9 % (2-10) 06/24/17 04:50 Eosinophils 6 % (0-5) H 06/24/17 04:50 Basophils 2 % (0-3) 06/24/17 04:50 Metamyelocytes 2 % (0-0) H 06/13/17 07:20 Myelocytes 1 % 06/13/17 07:20 Nucleated RBCs 1.0 % (0-0) H 06/08/17 04:59 Platelet Estimate DECREASED PLATELETS (NORMAL) 06/24/17 04:50 Platelet Morphology PLATELET CLUMPS SEEN (NORMAL) 06/24/17 04:50 Polychromasia 1+ 06/18/17 04:59 Anisocytosis 1+ 06/24/17 04:50 RBC Morph Micro Appear ABNORMAL (NORMAL) 06/24/17 04:50 Specimen Source ARTERIAL 06/10/17 08:43 Sample Site Left Radial 06/10/17 08:43 pH 7.46 (7.35-7.45) H 06/10/17 08:43 pCO2 36.0 mmHg (35.0-45.0) 06/10/17 08:43 pO2 92.0 mmHg (80.0-100.0) 06/10/17 08:43 HCO3 26.4 mEq/L (20.0-26.0) H 06/10/17 08:43 Base Excess 1.9 mEq/L (-3.0-3.0) 06/10/17 08:43 O2 Saturation 98.0 % (92.0-100.0) 06/10/17 08:43 Jose L Test POSITIVE 06/10/17 08:43 Vent Rate 12 06/10/17 08:43 Inspired O2 40 06/10/17 08:43 Tidal Volume 500 06/10/17 08:43 PEEP 5 06/10/17 08:43 Pressure (ins/psv/peep) N/A 06/10/17 08:43 Critical Value SAURABH 06/10/17 08:43 Sodium 149 mEq/L (136-145) H 06/24/17 04:50 Potassium 3.6 mEq/L (3.5-5.1) 06/24/17 04:50 Chloride 121 mEq/L (98-107) H 06/24/17 04:50 Carbon Dioxide 27.6 mEq/L (21.0-31.0) 06/24/17 04:50 Anion Gap 4.0 (7.0-16.0) L 06/24/17 04:50 BUN 27 mg/dL (7-25) H 06/24/17 04:50 Creatinine 0.6 mg/dL (0.7-1.3) L 06/24/17 04:50 Est GFR ( Amer) > 60.0 ml/min (>90) 06/24/17 04:50 Est GFR (Non-Af Amer) > 60.0 ml/min 06/24/17 04:50 BUN/Creatinine Ratio 45.0 06/24/17 04:50 Glucose 109 mg/dL (70-105) H 06/24/17 04:50 Plasma/Ser Osmolality 313 mOsmol/kg (275-295) H 06/09/17 05:07 Whole Bld Lactic Acid 1.51 mmol/L (0.60-1.99) 06/08/17 04:59 Calcium 10.8 mg/dL (8.6-10.3) H 06/24/17 04:50 Phosphorus 2.7 mg/dL (2.5-5.0) 06/08/17 04:59 Magnesium 1.6 mg/dL (1.9-2.7) L 06/14/17 05:00 Iron 71 ug/dL (38-169) 06/08/17 04:59 TIBC 173 ug/dL (250-450) L 06/08/17 04:59 Iron Saturation 41 % (15-55) 06/08/17 04:59 Unsaturated IBC 102 ug/dL (111-343) L 06/08/17 04:59 Ferritin 303 ng/mL (30-400) 06/08/17 04:59 Total Bilirubin 0.9 mg/dL (0.3-1.0) 06/24/17 04:50 Direct Bilirubin 0.29 mg/dL (0.0-0.2) H 06/16/17 04:40 AST 36 U/L (13-39) 06/24/17 04:50 ALT 17 U/L (7-52) 06/24/17 04:50 Alkaline Phosphatase 170 U/L (34-104) H 06/24/17 04:50 Ammonia 74 umol/L (16-53) H 06/24/17 04:50 Troponin I 0.01 ng/mL (0.01-0.05) 06/07/17 13:28 B-Natriuretic Peptide 91.8 pg/mL (5.0-100.0) 06/07/17 13:28 Total Protein 7.9 gm/dL (6.0-8.3) 06/24/17 04:50 Albumin 2.6 gm/dL (4.2-5.5) L 06/24/17 04:50 Globulin 5.3 gm/dL 06/24/17 04:50 Albumin/Globulin Ratio 0.5 (1.0-1.8) L 06/24/17 04:50 Vitamin B12 >1999 pg/mL (211-946) H 06/08/17 04:59 Folic Acid >20.0 ng/mL (>3.0) 06/08/17 04:59 Urine Source RANDOM 06/07/17 13:25 Urine Color NISA 06/07/17 13:25 Urine Clarity CLOUDY (CLEAR) 06/07/17 13:25 Urine pH 5.5 (4.6 - 8.0) 06/07/17 13:25 Ur Specific [place] 1.020 (1.005-1.030) 06/07/17 13:25 Urine Protein >=300 mg/dL (NEGATIVE) 06/07/17 13:25 Urine Glucose (UA) NEGATIVE mg/dL (NEGATIVE) 06/07/17 13:25 Urine Ketones 15 mg/dL (NEGATIVE) H 06/07/17 13:25 Urine Blood LARGE (NEGATIVE) H 06/07/17 13:25 Urine Nitrate POSITIVE (NEGATIVE) H 06/07/17 13:25 Urine Bilirubin MODERATE (NEGATIVE) H 06/07/17 13:25 Urine Urobilinogen 2.0 E.U./dL (0.2 - 1.0) 06/07/17 13:25 Ur Leukocyte Esterase MODERATE (NEGATIVE) H 06/07/17 13:25 Urine RBC >100 /hpf (0-5) H 06/07/17 13:25 Urine WBC 2-5 /hpf (0-5) H 06/07/17 13:25 Ur Epithelial Cells OCCASIONAL /lpf (FEW) 06/07/17 13:25 Urine Bacteria FEW /hpf (NONE SEEN) 06/07/17 13:25 Urine Osmolality 776 mOsmol/kg 06/09/17 05:53 Ur Random Sodium 119 mmol/L 06/08/17 18:16 Stool Occult Blood NEGATIVE (NEGATIVE) 06/22/17 07:15 Vancomycin Trough 22.8 ug/mL (10-20) H 06/24/17 09:08 Blood Type O POSITIVE 06/09/17 09:30 Antibody Screen NEGATIVE 06/09/17 09:30 - Physical Exam Vitals and I&O: Vital Signs Temp 97.5 F 06/24/17 15:00 Pulse 74 06/24/17 15:00 Resp 17 06/24/17 15:00 BP 99/50 06/24/17 15:00 Pulse Ox 97 06/24/17 15:00 Intake & Output 06/23/17 06/24/17 06/24/17 18:59 06:59 18:59 Intake Total 1750 1850 Output Total 550 900 Balance 1200 950 Weight (lbs) 83.631 kg 83.642 kg Intake: Intake, IV Amount 450 1250 Colistimethate 150 mg In 100 Sodium Chloride 0.9% 100 ml @ 100 mls/hr IV Q12HR [facility] Rx#:[id number] Dextrose 5% 1,000 ml @ 75 1000 mls/hr IV .[id number] [facility] Rx#:[id number] Meropenem 1 gm In Sodium 100 Chloride 0.9% 100 ml @ 100 mls/hr IV Q12H [facility] Rx #:[id number] Vancomycin HCl 1.25 gm In 250 250 Sodium Chloride 0.9% 250 ml @ 165 mls/hr IV Q12H [facility] Rx#:[id number] Tube Feeding 600 600 Other 700 Output: Urine 550 600 Stool 300 Other: # Bowel Movements 350 Stool Characteristics Liquid Liquid Liquid Brown Brown Brown Active Medications: Current Medications Albuterol/Ipratropium (Duoneb Neb) 3 ml HHN Q4HRT [facility] Stop: 08/07/17 18:59 Last Admin: 06/24/17 11:01 Dose: 3 ml Amlodipine Besylate (Norvasc) 5 mg GT Q12HR [place] Stop: 08/06/17 20:59 Last Admin: 06/24/17 08:31 Dose: Not Given Artificial Tears (Artificial Tears Ophth Soln) 2 drop EACH EYE Q6H PRN PRN Reason: eye dryness Stop: 08/06/17 20:54 Last Admin: 06/16/17 09:32 Dose: 2 drop Atorvastatin Calcium (Lipitor) 10 mg GT HS [place] PRN Reason: Protocol Stop: 08/06/17 20:59 Last Admin: 06/23/17 20:29 Dose: 10 mg Bisacodyl (Dulcolax 10 Mg Supp) 10 mg RC DAILY PRN PRN Reason: Constipation Stop: 08/06/17 19:17 Budesonide (Pulmicort) 0.5 mg HHN BIDRT [place] Stop: 08/07/17 18:59 Last Admin: 06/24/17 07:13 Dose: 0.5 mg Calcium/Vitamin D (Oscal W/Vitamin D) 1 tab GT DAILY [place] Stop: 08/07/17 08:59 Last Admin: 06/24/17 08:32 Dose: 1 tab Chlorhexidine Gluconate (Peridex) 15 ml MM 0800,2000 [place] Stop: 08/08/17 19:59 Last Admin: 06/24/17 08:29 Dose: 15 ml Clonazepam (Klonopin) 2 mg GT DAILY [place] PRN Reason: Protocol Stop: 08/20/17 13:44 Last Admin: 06/24/17 08:27 Dose: 2 mg Folic Acid (Folate) 2.5 mg GT DAILY [place] Stop: 08/07/17 08:59 Last Admin: 06/24/17 08:27 Dose: 2.5 mg Hydralazine HCl (Apresoline) 50 mg GT Q8HR [place] Stop: 08/06/17 20:59 Last Admin: 06/24/17 13:20 Dose: Not Given Dextrose (D5w) 1,000 mls @ 75 mls/hr IV .[id number] [place] Stop: 08/22/17 13:22 Last Admin: 06/24/17 08:31 Dose: 75 mls/hr Vancomycin HCl 1.25 gm/ Sodium (Chloride) 250 mls @ 165 mls/hr IV Q18H [place] Stop: 06/24/17 23:59 Vancomycin HCl 1.25 gm/ Sodium (Chloride) 250 mls @ 165 mls/hr IV Q12H [place] Stop: 08/24/17 09:59 Lactobacillus Rhamnosus (Culturelle) 1 each PO DAILY [place] Stop: 08/08/17 08:59 Last Admin: 06/24/17 08:28 Dose: 1 each Lactulose (Cephulac) 30 gm GT Q6HR [place] Stop: 08/08/17 17:59 Last Admin: 06/24/17 11:03 Dose: 30 gm Levetiracetam (Keppra) 1,000 mg GT Q8HR [place] Stop: 08/06/17 20:59 Last Admin: 06/24/17 13:21 Dose: 1,000 mg Lorazepam (Ativan) 1 mg IVP Q6H PRN; Protocol PRN Reason: Agitation Stop: 08/13/17 23:17 Last Admin: 06/24/17 10:55 Dose: 1 mg Magnesium Hydroxide (Milk Of Magnesia) 30 ml GT HS PRN PRN Reason: Constipation Stop: 08/06/17 19:17 Magnesium Oxide (Mag-Oxide) 400 mg GT DAILY [place] Stop: 08/07/17 08:59 Last Admin: 06/24/17 08:28 Dose: 400 mg Metoprolol Tartrate (Lopressor) 100 mg GT Q12HR [place] Stop: 08/06/17 20:59 Last Admin: 06/24/17 08:32 Dose: 100 mg Miscellaneous (Probiotic Screen) 1 ea PRN PRN PRN Reason: PROTOCOL Stop: 08/07/17 10:42 Miscellaneous (Vancomycin Iv Per Pharmacy) 1 ea PRN PRN PRN Reason: VANCO PER RX Stop: 08/20/17 13:12 Phytonadione (Mephyton) 10 mg GT DAILY [facility] Stop: 08/07/17 19:59 Last Admin: 06/24/17 08:27 Dose: 10 mg Potassium Chloride (Potassium Chloride Elixir) 20 meq GT TID [place] Stop: 08/12/17 13:59 Last Admin: 06/24/17 13:21 Dose: 20 meq Propranolol HCl (Inderal) 20 mg GT TID [place] Stop: 08/06/17 20:59 Last Admin: 06/24/17 13:21 Dose: Not Given Pyridoxine HCl (Vitamin B6) 100 mg GT DAILY [facility] Stop: 08/07/17 08:59 Last Admin: 06/24/17 08:28 Dose: 100 mg Sodium Phosphate (Fleet Enema) 135 ml RC Q48H PRN PRN Reason: IF DULCOLAX IS INEFFECTIVE Stop: 08/06/17 19:17 Temazepam (Restoril) 15 mg GT HS PRN; Protocol PRN Reason: Insomnia Stop: 08/19/17 19:18 Last Admin: 06/21/17 20:08 Dose: 15 mg Thiamine HCl (Vitamin B1) 100 mg GT DAILY [place] Stop: 08/07/17 08:59 Last Admin: 06/24/17 08:28 Dose: 100 mg Valproate Sodium (Depakene) 500 mg GT TID [facility] PRN Reason: Protocol Stop: 08/06/17 20:59 Last Admin: 06/24/17 13:21 Dose: 500 mg General: Alert, No acute distress HEENT: Atraumatic, PERRLA, EOMI, Mucous membr. moist/pink, Other (tracheostomy) Neck: Supple, +2 carotid pulse wo bruit, Other (tracheostomy) Cardiovascular: Regular rate, Normal S1, Normal S2 Lungs: Clear to auscultation, Other (tracheostomy) Abdomen: Bowel sounds, Soft, Distended, Other (gastric tube and rectal tube) Extremities: no Edema Neurological: Sensation intact Skin: no Rash Psych/Mental Status: Mood NL - Procedures Procedures: Procedures Procedure Code Date RESPIRATORY VENTILATION, GREATER THAN 96 CONSECUTIVE HOURS [id number] 06/07/17 Assessment/Plan - Problem List Patient Problems: All Active Problems ELEVATED NA+, AND BUN LEVELS (Acute) Status post tracheostomy (Acute) Z93.0 Status post tracheostomy (Acute) Z93.0 - Assessment Assessment: s/p respiratory failure pnumonia s/p trch and peg trmors h/o alcoholism h/o sizures - Plan Plan: iv antibiotics vent support continue current plan of care am labs Nutritional Asmnt/Malnutr-PDOC - Dietary Evaluation Malnutrition Findings (Please click <Entered> for more info): Nutritional Asmnt/Malnutrition Start: 06/09/17 11: 00 Text: Status: Complete Freq: Document 06/09/17 13:09 [facility] (Rec: 06/09/17 13:27 [facility] [id number]) Nutritional Asmnt/Malnutrition Patient General Information Nutritional Screening High Risk Screening Diagnosis Sepsis, UTI, right and left lower lobe infiltrate, pneumonia Pertinent Medical Hx/Surgical Hx Alcohol problem, liver disease , cirrhosis of the liver, hepatic comas, seizures, trachestomy, PEG, asthma, COPD Subjective Information Pt is a 52-year-old male from [facility] admitted with chief complaint of shortness of breath and falling oxygen saturation. Pt has tracheostomy to ventilator. Pt was unable to provide nutritional hx. Pt appears well nourished with no signs of muscle or fat depletion. Order to resume tube feeding; bag of Novosource Renal at bedside not yet started. Abdomen Ultrasound 06/09 notes some abdominal ascites. Current Diet Order/ Nutrition Support Novosource Renal at 55 ml/hr = 2640kcals, 120gm protein, 946ml free water Patient / S.O Can't verbalize diet edu Pertinent Medications Oscal with Vitamin D, Cefepime , D5w, Iron, Folate, Culturelle, MagOxide, Mephyton , KCl Elixir, Vitamin B6, Vitamin B1, Depakene, Vancomycin Pertinent Labs (06/09) Na 148H (improving), K 3L, Alkaline Phosphatase 171H, Ammonia 64H, Albumin 3.3L Nutritional Hx/Data Height 1.68 m Height (Calculated Centimeters) 167.6 Current Weight (lbs) 76.657 kg Weight (Calculated Kilograms) 76.7 Weight (Calculated Grams) 42307.1 Usual body Weight (lbs) 168 % Usual Body Weight 100 [place] Body Weight 142 % [place] Body Weight 119 Recent Weight Change No Weight Status Overweight GI Symptoms GI Symptoms Diarrhea Difficult in: Chewing Swallowing Food Allergies No Usual diet at home Nepro 1.8 (237 ml) QID 0900, 1300, 1700, 2100, sugar free ProStat 30 ml Skin Integrity/Comment: Vitor 12. Skin intact. Estimated Nutritional Goals BEE in Kcals: Using Current wt Calories/Kcals/Kg Based on current wt 76.8 kg with consideration of sepsis: Kcals Calculated 2615-2350 kcals/day (27-32 kcals/kg) to prevent wt gain with overwt status Protein: Using Current wt Protein g/kg: Based on current wt 76.8 kg with consideration of sepsis: Protein Calculated 92-115 gm/day (1.2-1.5 gm/kg) Fluid: ml Per MD/DO due to abnormal electrolytes Nutritional Problem 1. Problem Problem Excessive intake from enteral nutrition related to Etiology increased energy intake from calorically dense tube feeding formula as evidenced by Signs/Symptoms: current tube feeding meets 104 % of higher end of estimated calories needs. Malnutrition Alert Protein-Calorie Malnutrition N/A Is there a minimum of two criteria No selected? Query Text:Check all the applicable criteria. A minimum of two criteria are recommended for diagnosis of either severe or non-severe malnutrition. Malnutrition Related to Morbid Obesity Malnutrition related to morbid obesity No Intervention/Recommendation Recommendations by RD Decrease Calorie Intake Comments 1. Recommend decrease tube feeding Novosource Renal at goal rate of 50 ml/hr to provide 2400 kcals, 109 gm protein, and 860 ml free water per day. Monitor renal labs to prioritize protein needs. Expected Outcomes/Goals Expected Outcomes/Goals Provide pt with 100% of estimated nutritional needs. Physician Parameters for PEM Serum Albumin (g/dl) 3.1 - 3.4 (Mild)
--- NOTE | 2017-06-24 17:17 | General Progress Note ---
Subjective - Review of Systems Service Date: 06/24/17 Subjective: awake, non communicative Objective - Results Result Diagrams: 06/24/17 04:50 06/24/17 04:50 Recent Labs: Laboratory Last Values WBC 4.9 Th/cmm (4.8-10.8) D 06/24/17 04:50 RBC 2.94 Mil/cmm (4.30-5.70) L 06/24/17 04:50 Hgb 9.4 gm/dL (13.2-17.3) L 06/24/17 04:50 Hct 27.7 % (39.0-49.0) L 06/24/17 04:50 MCV 94.2 fl (80-99) 06/24/17 04:50 MCH 32.0 pg (26.0-30.0) H 06/24/17 04:50 MCHC Differential 33.9 pg (28.0-36.0) 06/24/17 04:50 RDW 14.4 % (11.5-20.0) 06/24/17 04:50 Plt Count 56 Th/cmm (150-400) L 06/24/17 04:50 MPV 9.6 fl 06/24/17 04:50 Neutrophils % 59.2 % (40.0-80.0) 06/23/17 04:41 Band Neutrophils % 1 % (0-10) 06/24/17 04:50 Lymphocytes % 24.9 % (20.0-50.0) 06/23/17 04:41 Monocytes % 12.4 % (2.0-10.0) H 06/23/17 04:41 Eosinophils % 3.3 % (0.0-5.0) 06/23/17 04:41 Basophils % 0.2 % (0.0-2.0) 06/23/17 04:41 Neutrophils (Manual) 52 % (40-80) 06/24/17 04:50 Lymphocytes 30 % (20-50) 06/24/17 04:50 Monocytes 9 % (2-10) 06/24/17 04:50 Eosinophils 6 % (0-5) H 06/24/17 04:50 Basophils 2 % (0-3) 06/24/17 04:50 Metamyelocytes 2 % (0-0) H 06/13/17 07:20 Myelocytes 1 % 06/13/17 07:20 Nucleated RBCs 1.0 % (0-0) H 06/08/17 04:59 Platelet Estimate DECREASED PLATELETS (NORMAL) 06/24/17 04:50 Platelet Morphology PLATELET CLUMPS SEEN (NORMAL) 06/24/17 04:50 Polychromasia 1+ 06/18/17 04:59 Anisocytosis 1+ 06/24/17 04:50 RBC Morph Micro Appear ABNORMAL (NORMAL) 06/24/17 04:50 Specimen Source ARTERIAL 06/10/17 08:43 Sample Site Left Radial 06/10/17 08:43 pH 7.46 (7.35-7.45) H 06/10/17 08:43 pCO2 36.0 mmHg (35.0-45.0) 06/10/17 08:43 pO2 92.0 mmHg (80.0-100.0) 06/10/17 08:43 HCO3 26.4 mEq/L (20.0-26.0) H 06/10/17 08:43 Base Excess 1.9 mEq/L (-3.0-3.0) 06/10/17 08:43 O2 Saturation 98.0 % (92.0-100.0) 06/10/17 08:43 Jose L Test POSITIVE 06/10/17 08:43 Vent Rate 12 06/10/17 08:43 Inspired O2 40 06/10/17 08:43 Tidal Volume 500 06/10/17 08:43 PEEP 5 06/10/17 08:43 Pressure (ins/psv/peep) N/A 06/10/17 08:43 Critical Value SAURABH 06/10/17 08:43 Sodium 149 mEq/L (136-145) H 06/24/17 04:50 Potassium 3.6 mEq/L (3.5-5.1) 06/24/17 04:50 Chloride 121 mEq/L (98-107) H 06/24/17 04:50 Carbon Dioxide 27.6 mEq/L (21.0-31.0) 06/24/17 04:50 Anion Gap 4.0 (7.0-16.0) L 06/24/17 04:50 BUN 27 mg/dL (7-25) H 06/24/17 04:50 Creatinine 0.6 mg/dL (0.7-1.3) L 06/24/17 04:50 Est GFR ( Amer) > 60.0 ml/min (>90) 06/24/17 04:50 Est GFR (Non-Af Amer) > 60.0 ml/min 06/24/17 04:50 BUN/Creatinine Ratio 45.0 06/24/17 04:50 Glucose 109 mg/dL (70-105) H 06/24/17 04:50 Plasma/Ser Osmolality 313 mOsmol/kg (275-295) H 06/09/17 05:07 Whole Bld Lactic Acid 1.51 mmol/L (0.60-1.99) 06/08/17 04:59 Calcium 10.8 mg/dL (8.6-10.3) H 06/24/17 04:50 Phosphorus 2.7 mg/dL (2.5-5.0) 06/08/17 04:59 Magnesium 1.6 mg/dL (1.9-2.7) L 06/14/17 05:00 Iron 71 ug/dL (38-169) 06/08/17 04:59 TIBC 173 ug/dL (250-450) L 06/08/17 04:59 Iron Saturation 41 % (15-55) 06/08/17 04:59 Unsaturated IBC 102 ug/dL (111-343) L 06/08/17 04:59 Ferritin 303 ng/mL (30-400) 06/08/17 04:59 Total Bilirubin 0.9 mg/dL (0.3-1.0) 06/24/17 04:50 Direct Bilirubin 0.29 mg/dL (0.0-0.2) H 06/16/17 04:40 AST 36 U/L (13-39) 06/24/17 04:50 ALT 17 U/L (7-52) 06/24/17 04:50 Alkaline Phosphatase 170 U/L (34-104) H 06/24/17 04:50 Ammonia 74 umol/L (16-53) H 06/24/17 04:50 Troponin I 0.01 ng/mL (0.01-0.05) 06/07/17 13:28 B-Natriuretic Peptide 91.8 pg/mL (5.0-100.0) 06/07/17 13:28 Total Protein 7.9 gm/dL (6.0-8.3) 06/24/17 04:50 Albumin 2.6 gm/dL (4.2-5.5) L 06/24/17 04:50 Globulin 5.3 gm/dL 06/24/17 04:50 Albumin/Globulin Ratio 0.5 (1.0-1.8) L 06/24/17 04:50 Vitamin B12 >1999 pg/mL (211-946) H 06/08/17 04:59 Folic Acid >20.0 ng/mL (>3.0) 06/08/17 04:59 Urine Source RANDOM 06/07/17 13:25 Urine Color NISA 06/07/17 13:25 Urine Clarity CLOUDY (CLEAR) 06/07/17 13:25 Urine pH 5.5 (4.6 - 8.0) 06/07/17 13:25 Ur Specific Almo 1.020 (1.005-1.030) 06/07/17 13:25 Urine Protein >=300 mg/dL (NEGATIVE) 06/07/17 13:25 Urine Glucose (UA) NEGATIVE mg/dL (NEGATIVE) 06/07/17 13:25 Urine Ketones 15 mg/dL (NEGATIVE) H 06/07/17 13:25 Urine Blood LARGE (NEGATIVE) H 06/07/17 13:25 Urine Nitrate POSITIVE (NEGATIVE) H 06/07/17 13:25 Urine Bilirubin MODERATE (NEGATIVE) H 06/07/17 13:25 Urine Urobilinogen 2.0 E.U./dL (0.2 - 1.0) 06/07/17 13:25 Ur Leukocyte Esterase MODERATE (NEGATIVE) H 06/07/17 13:25 Urine RBC >100 /hpf (0-5) H 06/07/17 13:25 Urine WBC 2-5 /hpf (0-5) H 06/07/17 13:25 Ur Epithelial Cells OCCASIONAL /lpf (FEW) 06/07/17 13:25 Urine Bacteria FEW /hpf (NONE SEEN) 06/07/17 13:25 Urine Osmolality 776 mOsmol/kg 06/09/17 05:53 Ur Random Sodium 119 mmol/L 06/08/17 18:16 Stool Occult Blood NEGATIVE (NEGATIVE) 06/22/17 07:15 Vancomycin Trough 22.8 ug/mL (10-20) H 06/24/17 09:08 Blood Type O POSITIVE 06/09/17 09:30 Antibody Screen NEGATIVE 06/09/17 09:30 - Physical Exam Vitals and I&O: Vital Signs Temp 97.5 F 06/24/17 16:00 Pulse 72 06/24/17 16:58 Resp 13 06/24/17 16:00 BP 115/67 06/24/17 16:00 Pulse Ox 97 06/24/17 16:58 Intake & Output 06/23/17 06/24/17 06/24/17 18:59 06:59 18:59 Intake Total 1750 1850 Output Total 550 900 Balance 1200 950 Weight (lbs) 83.631 kg 83.642 kg Intake: Intake, IV Amount 450 1250 Colistimethate 150 mg In 100 Sodium Chloride 0.9% 100 ml @ 100 mls/hr IV Q12HR [facility] Rx#:[id number] Dextrose 5% 1,000 ml @ 75 1000 mls/hr IV .[id number] [facility] Rx#:[id number] Meropenem 1 gm In Sodium 100 Chloride 0.9% 100 ml @ 100 mls/hr IV Q12H [facility] Rx #:[id number] Vancomycin HCl 1.25 gm In 250 250 Sodium Chloride 0.9% 250 ml @ 165 mls/hr IV Q12H [facility] Rx#:[id number] Tube Feeding 600 600 Other 700 Output: Urine 550 600 Stool 300 Other: # Bowel Movements 350 Stool Characteristics Liquid Liquid Liquid Brown Brown Brown Active Medications: Current Medications Albuterol/Ipratropium (Duoneb Neb) 3 ml HHN Q4HRT [facility] Stop: 08/07/17 18:59 Last Admin: 06/24/17 16:24 Dose: 3 ml Amlodipine Besylate (Norvasc) 5 mg GT Q12HR [place] Stop: 08/06/17 20:59 Last Admin: 06/24/17 08:31 Dose: Not Given Artificial Tears (Artificial Tears Ophth Soln) 2 drop EACH EYE Q6H PRN PRN Reason: eye dryness Stop: 08/06/17 20:54 Last Admin: 06/16/17 09:32 Dose: 2 drop Atorvastatin Calcium (Lipitor) 10 mg GT HS [place] PRN Reason: Protocol Stop: 08/06/17 20:59 Last Admin: 06/23/17 20:29 Dose: 10 mg Bisacodyl (Dulcolax 10 Mg Supp) 10 mg RC DAILY PRN PRN Reason: Constipation Stop: 08/06/17 19:17 Budesonide (Pulmicort) 0.5 mg HHN BIDRT [place] Stop: 08/07/17 18:59 Last Admin: 06/24/17 07:13 Dose: 0.5 mg Calcium/Vitamin D (Oscal W/Vitamin D) 1 tab GT DAILY [place] Stop: 08/07/17 08:59 Last Admin: 06/24/17 08:32 Dose: 1 tab Chlorhexidine Gluconate (Peridex) 15 ml MM 0800,2000 [facility] Stop: 08/08/17 19:59 Last Admin: 06/24/17 08:29 Dose: 15 ml Clonazepam (Klonopin) 2 mg GT DAILY [place] PRN Reason: Protocol Stop: 08/20/17 13:44 Last Admin: 06/24/17 08:27 Dose: 2 mg Folic Acid (Folate) 2.5 mg GT DAILY [place] Stop: 08/07/17 08:59 Last Admin: 06/24/17 08:27 Dose: 2.5 mg Hydralazine HCl (Apresoline) 50 mg GT Q8HR [place] Stop: 08/06/17 20:59 Last Admin: 06/24/17 13:20 Dose: Not Given Dextrose (D5w) 1,000 mls @ 75 mls/hr IV .[id number] [place] Stop: 08/22/17 13:22 Last Admin: 06/24/17 08:31 Dose: 75 mls/hr Vancomycin HCl 1.25 gm/ Sodium (Chloride) 250 mls @ 165 mls/hr IV Q18H [facility] Stop: 06/24/17 23:59 Last Admin: 06/24/17 17:06 Dose: 165 mls/hr Vancomycin HCl 1.25 gm/ Sodium (Chloride) 250 mls @ 165 mls/hr IV Q12H [facility] Stop: 08/24/17 09:59 Lactobacillus Rhamnosus (Culturelle) 1 each PO DAILY [facility] Stop: 08/08/17 08:59 Last Admin: 06/24/17 08:28 Dose: 1 each Lactulose (Cephulac) 30 gm GT Q6HR [place] Stop: 08/08/17 17:59 Last Admin: 06/24/17 17:06 Dose: 30 gm Levetiracetam (Keppra) 1,000 mg GT Q8HR [facility] Stop: 08/06/17 20:59 Last Admin: 06/24/17 13:21 Dose: 1,000 mg Lorazepam (Ativan) 1 mg IVP Q6H PRN; Protocol PRN Reason: Agitation Stop: 08/13/17 23:17 Last Admin: 06/24/17 10:55 Dose: 1 mg Magnesium Hydroxide (Milk Of Magnesia) 30 ml GT HS PRN PRN Reason: Constipation Stop: 08/06/17 19:17 Magnesium Oxide (Mag-Oxide) 400 mg GT DAILY [place] Stop: 08/07/17 08:59 Last Admin: 06/24/17 08:28 Dose: 400 mg Metoprolol Tartrate (Lopressor) 100 mg GT Q12HR [place] Stop: 08/06/17 20:59 Last Admin: 06/24/17 08:32 Dose: 100 mg Miscellaneous (Probiotic Screen) 1 ea PRN PRN PRN Reason: PROTOCOL Stop: 08/07/17 10:42 Miscellaneous (Vancomycin Iv Per Pharmacy) 1 ea PRN PRN PRN Reason: VANCO PER RX Stop: 08/20/17 13:12 Phytonadione (Mephyton) 10 mg GT DAILY [place] Stop: 08/07/17 19:59 Last Admin: 06/24/17 08:27 Dose: 10 mg Potassium Chloride (Potassium Chloride Elixir) 20 meq GT TID [place] Stop: 08/12/17 13:59 Last Admin: 06/24/17 13:21 Dose: 20 meq Propranolol HCl (Inderal) 20 mg GT TID [place] Stop: 08/06/17 20:59 Last Admin: 06/24/17 13:21 Dose: Not Given Pyridoxine HCl (Vitamin B6) 100 mg GT DAILY [place] Stop: 08/07/17 08:59 Last Admin: 06/24/17 08:28 Dose: 100 mg Sodium Phosphate (Fleet Enema) 135 ml RC Q48H PRN PRN Reason: IF DULCOLAX IS INEFFECTIVE Stop: 08/06/17 19:17 Temazepam (Restoril) 15 mg GT HS PRN; Protocol PRN Reason: Insomnia Stop: 08/19/17 19:18 Last Admin: 06/21/17 20:08 Dose: 15 mg Thiamine HCl (Vitamin B1) 100 mg GT DAILY [facility] Stop: 08/07/17 08:59 Last Admin: 06/24/17 08:28 Dose: 100 mg Valproate Sodium (Depakene) 500 mg GT TID [facility] PRN Reason: Protocol Stop: 08/06/17 20:59 Last Admin: 06/24/17 13:21 Dose: 500 mg General: Alert, No acute distress HEENT: Atraumatic, PERRLA, EOMI, Mucous membr. moist/pink, Other (tracheostomy) Neck: Supple, +2 carotid pulse wo bruit, Other (tracheostomy) Cardiovascular: Regular rate, Normal S1, Normal S2 Lungs: Clear to auscultation, Other (tracheostomy) Abdomen: Bowel sounds, Soft, Distended, Other (gastric tube and rectal tube) Extremities: no Edema Neurological: Sensation intact Skin: no Rash Psych/Mental Status: Mood NL - Procedures Procedures: Procedures Procedure Code Date RESPIRATORY VENTILATION, GREATER THAN 96 CONSECUTIVE HOURS [id number] 06/07/17 Assessment/Plan - Problem List Patient Problems: All Active Problems ELEVATED NA+, AND BUN LEVELS (Acute) Status post tracheostomy (Acute) Z93.0 Status post tracheostomy (Acute) Z93.0 - Assessment Assessment: * SPLENOMEGALY. * THROMBOCYTOPENIA. Fluctuating, S/P TX * RESPIRATORY FAILURE. * ANEMIA OF CHRONIC DISEASE. hgb stable * hypercalcemia, check PTH stool OB NEG no need for tx Nutritional Asmnt/Malnutr-PDOC - Dietary Evaluation Malnutrition Findings (Please click <Entered> for more info): Nutritional Asmnt/Malnutrition Start: 06/09/17 11: 00 Text: Status: Complete Freq: Document 06/09/17 13:09 [facility] (Rec: 06/09/17 13:27 [facility] [id number]) Nutritional Asmnt/Malnutrition Patient General Information Nutritional Screening High Risk Screening Diagnosis Sepsis, UTI, right and left lower lobe infiltrate, pneumonia Pertinent Medical Hx/Surgical Hx Alcohol problem, liver disease , cirrhosis of the liver, hepatic comas, seizures, trachestomy, PEG, asthma, COPD Subjective Information Pt is a 52-year-old male from [facility] admitted with chief complaint of shortness of breath and falling oxygen saturation. Pt has tracheostomy to ventilator. Pt was unable to provide nutritional hx. Pt appears well nourished with no signs of muscle or fat depletion. Order to resume tube feeding; bag of Novosource Renal at bedside not yet started. Abdomen Ultrasound 06/09 notes some abdominal ascites. Current Diet Order/ Nutrition Support Novosource Renal at 55 ml/hr = 2640kcals, 120gm protein, 946ml free water Patient / S.O Can't verbalize diet edu Pertinent Medications Oscal with Vitamin D, Cefepime , D5w, Iron, Folate, Culturelle, MagOxide, Mephyton , KCl Elixir, Vitamin B6, Vitamin B1, Depakene, Vancomycin Pertinent Labs (06/09) Na 148H (improving), K 3L, Alkaline Phosphatase 171H, Ammonia 64H, Albumin 3.3L Nutritional Hx/Data Height 1.68 m Height (Calculated Centimeters) 167.6 Current Weight (lbs) 76.657 kg Weight (Calculated Kilograms) 76.7 Weight (Calculated Grams) 39411.1 Usual body Weight (lbs) 168 % Usual Body Weight 100 [place] Body Weight 142 % [place] Body Weight 119 Recent Weight Change No Weight Status Overweight GI Symptoms GI Symptoms Diarrhea Difficult in: Chewing Swallowing Food Allergies No Usual diet at home Nepro 1.8 (237 ml) QID 0900, 1300, 1700, 2100, sugar free ProStat 30 ml Skin Integrity/Comment: Vitor Thomas. Skin intact. Estimated Nutritional Goals BEE in Kcals: Using Current wt Calories/Kcals/Kg Based on current wt 76.8 kg with consideration of sepsis: Kcals Calculated 2035-6505 kcals/day (27-32 kcals/kg) to prevent wt gain with overwt status Protein: Using Current wt Protein g/kg: Based on current wt 76.8 kg with consideration of sepsis: Protein Calculated 92-115 gm/day (1.2-1.5 gm/kg) Fluid: ml Per MD/DO due to abnormal electrolytes Nutritional Problem 1. Problem Problem Excessive intake from enteral nutrition related to Etiology increased energy intake from calorically dense tube feeding formula as evidenced by Signs/Symptoms: current tube feeding meets 104 % of higher end of estimated calories needs. Malnutrition Alert Protein-Calorie Malnutrition N/A Is there a minimum of two criteria No selected? Query Text:Check all the applicable criteria. A minimum of two criteria are recommended for diagnosis of either severe or non-severe malnutrition. Malnutrition Related to Morbid Obesity Malnutrition related to morbid obesity No Intervention/Recommendation Recommendations by RD Decrease Calorie Intake Comments 1. Recommend decrease tube feeding Novosource Renal at goal rate of 50 ml/hr to provide 2400 kcals, 109 gm protein, and 860 ml free water per day. Monitor renal labs to prioritize protein needs. Expected Outcomes/Goals Expected Outcomes/Goals Provide pt with 100% of estimated nutritional needs. Physician Parameters for PEM Serum Albumin (g/dl) 3.1 - 3.4 (Mild)
[2017-06-24] MEDS: Atorvastatin Calcium 10 MG TAB GT SCH (20:14)
[2017-06-25] MEDS: Lactulose 10 Gm/15 mL 30mL UDC GT SCH ×4 (00:41→18:16)
[2017-06-25] MEDS: Albuterol/Ipratropium Neb 3 ML AERS HHN SCH ×6 (03:56→22:35)
[2017-06-25] MEDS: Levetiracetam 500 mg/5mL 5mL UDC GT SCH ×3 (05:03→20:57)
[2017-06-25 05:24] LABS: ANION GAP 3.9 (7.0-16.0); BUN - UREA NITROGEN 29 mg/dL (7-25); BUN/CREATININE RATIO 48.3; CALCIUM SERUM 10.2 mg/dL (8.6-10.3); CARBON DIOXIDE 26.7 mEq/L (21.0-31.0); CHLORIDE 116 mEq/L (98-107); CREATININE - SERUM 0.6 mg/dL (0.7-1.3); GLUCOSE 133 mg/dL (70-105); POTASSIUM SERUM 3.6 mEq/L (3.5-5.1); SODIUM SERUM 143 mEq/L (136-145)
[2017-06-25] MEDS: Budesonide 0.5 Mg/2 mL Ud HHN SCH ×2 (08:01→19:21)
[2017-06-25] MEDS: Chlorhexidine Gluconate 0.12% 15mL Mouthwash MM SCH ×2 (08:26→19:55)
[2017-06-25] MEDS: Calcium Carb/Vit D 500 mg/200 U Tab GT SCH (09:00)
[2017-06-25] MEDS: Lactobacillus Rhamnosus 10 Billion CFU Capsule PO SCH (09:00)
[2017-06-25] MEDS: Potassium Chloride Elixir 20 mEq /15 mL UDC GT SCH ×3 (09:00→20:57)
--- NOTE | 2017-06-25 10:45 | General Progress Note ---
Subjective - Review of Systems Service Date: 06/25/17 Events since last encounter: none Subjective: awake, non communicative Objective - Results Result Diagrams: 06/24/17 04:50 06/25/17 04:35 Recent Labs: Laboratory Last Values WBC 4.9 Th/cmm (4.8-10.8) D 06/24/17 04:50 RBC 2.94 Mil/cmm (4.30-5.70) L 06/24/17 04:50 Hgb 9.4 gm/dL (13.2-17.3) L 06/24/17 04:50 Hct 27.7 % (39.0-49.0) L 06/24/17 04:50 MCV 94.2 fl (80-99) 06/24/17 04:50 MCH 32.0 pg (26.0-30.0) H 06/24/17 04:50 MCHC Differential 33.9 pg (28.0-36.0) 06/24/17 04:50 RDW 14.4 % (11.5-20.0) 06/24/17 04:50 Plt Count 56 Th/cmm (150-400) L 06/24/17 04:50 MPV 9.6 fl 06/24/17 04:50 Neutrophils % 59.2 % (40.0-80.0) 06/23/17 04:41 Band Neutrophils % 1 % (0-10) 06/24/17 04:50 Lymphocytes % 24.9 % (20.0-50.0) 06/23/17 04:41 Monocytes % 12.4 % (2.0-10.0) H 06/23/17 04:41 Eosinophils % 3.3 % (0.0-5.0) 06/23/17 04:41 Basophils % 0.2 % (0.0-2.0) 06/23/17 04:41 Neutrophils (Manual) 52 % (40-80) 06/24/17 04:50 Lymphocytes 30 % (20-50) 06/24/17 04:50 Monocytes 9 % (2-10) 06/24/17 04:50 Eosinophils 6 % (0-5) H 06/24/17 04:50 Basophils 2 % (0-3) 06/24/17 04:50 Metamyelocytes 2 % (0-0) H 06/13/17 07:20 Myelocytes 1 % 06/13/17 07:20 Nucleated RBCs 1.0 % (0-0) H 06/08/17 04:59 Platelet Estimate DECREASED PLATELETS (NORMAL) 06/24/17 04:50 Platelet Morphology PLATELET CLUMPS SEEN (NORMAL) 06/24/17 04:50 Polychromasia 1+ 06/18/17 04:59 Anisocytosis 1+ 06/24/17 04:50 RBC Morph Micro Appear ABNORMAL (NORMAL) 06/24/17 04:50 Specimen Source ARTERIAL 06/10/17 08:43 Sample Site Left Radial 06/10/17 08:43 pH 7.46 (7.35-7.45) H 06/10/17 08:43 pCO2 36.0 mmHg (35.0-45.0) 06/10/17 08:43 pO2 92.0 mmHg (80.0-100.0) 06/10/17 08:43 HCO3 26.4 mEq/L (20.0-26.0) H 06/10/17 08:43 Base Excess 1.9 mEq/L (-3.0-3.0) 06/10/17 08:43 O2 Saturation 98.0 % (92.0-100.0) 06/10/17 08:43 Jose L Test POSITIVE 06/10/17 08:43 Vent Rate 12 06/10/17 08:43 Inspired O2 40 06/10/17 08:43 Tidal Volume 500 06/10/17 08:43 PEEP 5 06/10/17 08:43 Pressure (ins/psv/peep) N/A 06/10/17 08:43 Critical Value SAURABH 06/10/17 08:43 Sodium 143 mEq/L (136-145) 06/25/17 04:35 Potassium 3.6 mEq/L (3.5-5.1) 06/25/17 04:35 Chloride 116 mEq/L (98-107) H 06/25/17 04:35 Carbon Dioxide 26.7 mEq/L (21.0-31.0) 06/25/17 04:35 Anion Gap 3.9 (7.0-16.0) L 06/25/17 04:35 BUN 29 mg/dL (7-25) H 06/25/17 04:35 Creatinine 0.6 mg/dL (0.7-1.3) L 06/25/17 04:35 Est GFR ( Amer) > 60.0 ml/min (>90) 06/25/17 04:35 Est GFR (Non-Af Amer) > 60.0 ml/min 06/25/17 04:35 BUN/Creatinine Ratio 48.3 06/25/17 04:35 Glucose 133 mg/dL (70-105) H 06/25/17 04:35 Plasma/Ser Osmolality 313 mOsmol/kg (275-295) H 06/09/17 05:07 Whole Bld Lactic Acid 1.51 mmol/L (0.60-1.99) 06/08/17 04:59 Calcium 10.2 mg/dL (8.6-10.3) 06/25/17 04:35 Phosphorus 2.7 mg/dL (2.5-5.0) 06/08/17 04:59 Magnesium 1.6 mg/dL (1.9-2.7) L 06/14/17 05:00 Iron 71 ug/dL (38-169) 06/08/17 04:59 TIBC 173 ug/dL (250-450) L 06/08/17 04:59 Iron Saturation 41 % (15-55) 06/08/17 04:59 Unsaturated IBC 102 ug/dL (111-343) L 06/08/17 04:59 Ferritin 303 ng/mL (30-400) 06/08/17 04:59 Total Bilirubin 0.9 mg/dL (0.3-1.0) 06/24/17 04:50 Direct Bilirubin 0.29 mg/dL (0.0-0.2) H 06/16/17 04:40 AST 36 U/L (13-39) 06/24/17 04:50 ALT 17 U/L (7-52) 06/24/17 04:50 Alkaline Phosphatase 170 U/L (34-104) H 06/24/17 04:50 Ammonia 74 umol/L (16-53) H 06/24/17 04:50 Troponin I 0.01 ng/mL (0.01-0.05) 06/07/17 13:28 B-Natriuretic Peptide 91.8 pg/mL (5.0-100.0) 06/07/17 13:28 Total Protein 7.9 gm/dL (6.0-8.3) 06/24/17 04:50 Albumin 2.6 gm/dL (4.2-5.5) L 06/24/17 04:50 Globulin 5.3 gm/dL 06/24/17 04:50 Albumin/Globulin Ratio 0.5 (1.0-1.8) L 06/24/17 04:50 Vitamin B12 >1999 pg/mL (211-946) H 06/08/17 04:59 Folic Acid >20.0 ng/mL (>3.0) 06/08/17 04:59 Urine Source RANDOM 06/07/17 13:25 Urine Color NISA 06/07/17 13:25 Urine Clarity CLOUDY (CLEAR) 06/07/17 13:25 Urine pH 5.5 (4.6 - 8.0) 06/07/17 13:25 Ur Specific [place] 1.020 (1.005-1.030) 06/07/17 13:25 Urine Protein >=300 mg/dL (NEGATIVE) 06/07/17 13:25 Urine Glucose (UA) NEGATIVE mg/dL (NEGATIVE) 06/07/17 13:25 Urine Ketones 15 mg/dL (NEGATIVE) H 06/07/17 13:25 Urine Blood LARGE (NEGATIVE) H 06/07/17 13:25 Urine Nitrate POSITIVE (NEGATIVE) H 06/07/17 13:25 Urine Bilirubin MODERATE (NEGATIVE) H 06/07/17 13:25 Urine Urobilinogen 2.0 E.U./dL (0.2 - 1.0) 06/07/17 13:25 Ur Leukocyte Esterase MODERATE (NEGATIVE) H 06/07/17 13:25 Urine RBC >100 /hpf (0-5) H 06/07/17 13:25 Urine WBC 2-5 /hpf (0-5) H 06/07/17 13:25 Ur Epithelial Cells OCCASIONAL /lpf (FEW) 06/07/17 13:25 Urine Bacteria FEW /hpf (NONE SEEN) 06/07/17 13:25 Urine Osmolality 776 mOsmol/kg 06/09/17 05:53 Ur Random Sodium 119 mmol/L 06/08/17 18:16 Stool Occult Blood NEGATIVE (NEGATIVE) 06/22/17 07:15 Vancomycin Trough 22.8 ug/mL (10-20) H 06/24/17 09:08 Blood Type O POSITIVE 06/09/17 09:30 Antibody Screen NEGATIVE 06/09/17 09:30 - Physical Exam Vitals and I&O: Vital Signs Temp 96.2 F 06/25/17 08:00 Pulse 71 06/25/17 08:05 Resp 25 06/25/17 08:00 BP 112/58 06/25/17 08:00 Pulse Ox 100 06/25/17 08:05 Intake & Output 06/24/17 06/25/17 06/25/17 18:59 06:59 18:59 Intake Total 1600 2000 Output Total 930 1250 Balance 670 750 Weight (lbs) 84.141 kg 83.552 kg Intake: Intake, IV Amount 250 1000 Dextrose 5% 1,000 ml @ 75 1000 mls/hr IV .[id number] [facility] Rx#:[id number] Vancomycin HCl 1.25 gm In 250 Sodium Chloride 0.9% 250 ml @ 165 mls/hr IV Q18H [facility] Rx#:[id number] Tube Feeding 600 600 Other 750 400 Output: Urine 480 650 Stool 450 600 Other: Stool Characteristics Liquid Liquid Liquid Brown Brown Active Medications: Current Medications Albuterol/Ipratropium (Duoneb Neb) 3 ml HHN Q4HRT [facility] Stop: 08/07/17 18:59 Last Admin: 06/25/17 08:01 Dose: 3 ml Amlodipine Besylate (Norvasc) 5 mg GT Q12HR [place] Stop: 08/06/17 20:59 Last Admin: 06/24/17 20:14 Dose: Not Given Artificial Tears (Artificial Tears Ophth Soln) 2 drop EACH EYE Q6H PRN PRN Reason: eye dryness Stop: 08/06/17 20:54 Last Admin: 06/16/17 09:32 Dose: 2 drop Atorvastatin Calcium (Lipitor) 10 mg GT HS [place] PRN Reason: Protocol Stop: 08/06/17 20:59 Last Admin: 06/24/17 20:14 Dose: 10 mg Bisacodyl (Dulcolax 10 Mg Supp) 10 mg RC DAILY PRN PRN Reason: Constipation Stop: 08/06/17 19:17 Budesonide (Pulmicort) 0.5 mg HHN BIDRT [facility] Stop: 08/07/17 18:59 Last Admin: 06/25/17 08:01 Dose: 0.5 mg Calcium/Vitamin D (Oscal W/Vitamin D) 1 tab GT DAILY [place] Stop: 08/07/17 08:59 Last Admin: 06/24/17 08:32 Dose: 1 tab Chlorhexidine Gluconate (Peridex) 15 ml MM 08,1999 [place] Stop: 08/08/17 19:59 Last Admin: 06/25/17 08:26 Dose: 15 ml Clonazepam (Klonopin) 2 mg GT DAILY [place] PRN Reason: Protocol Stop: 08/20/17 13:44 Last Admin: 06/24/17 08:27 Dose: 2 mg Folic Acid (Folate) 2.5 mg GT DAILY [place] Stop: 08/07/17 08:59 Last Admin: 06/24/17 08:27 Dose: 2.5 mg Hydralazine HCl (Apresoline) 50 mg GT Q8HR [place] Stop: 08/06/17 20:59 Last Admin: 06/25/17 05:04 Dose: Not Given Dextrose (D5w) 1,000 mls @ 75 mls/hr IV .[id number] [place] Stop: 08/22/17 13:22 Last Admin: 06/24/17 23:22 Dose: 75 mls/hr Lactobacillus Rhamnosus (Culturelle) 1 each PO DAILY [place] Stop: 08/08/17 08:59 Last Admin: 06/24/17 08:28 Dose: 1 each Lactulose (Cephulac) 30 gm GT Q6HR [place] Stop: 08/08/17 17:59 Last Admin: 06/25/17 05:03 Dose: 30 gm Levetiracetam (Keppra) 1,000 mg GT Q8HR [facility] Stop: 08/06/17 20:59 Last Admin: 06/25/17 05:03 Dose: 1,000 mg Lorazepam (Ativan) 1 mg IVP Q6H PRN; Protocol PRN Reason: Agitation Stop: 08/13/17 23:17 Last Admin: 06/24/17 10:55 Dose: 1 mg Magnesium Hydroxide (Milk Of Magnesia) 30 ml GT HS PRN PRN Reason: Constipation Stop: 08/06/17 19:17 Magnesium Oxide (Mag-Oxide) 400 mg GT DAILY [place] Stop: 08/07/17 08:59 Last Admin: 06/24/17 08:28 Dose: 400 mg Metoprolol Tartrate (Lopressor) 100 mg GT Q12HR [facility] Stop: 08/06/17 20:59 Last Admin: 06/24/17 20:15 Dose: Not Given Miscellaneous (Probiotic Screen) 1 ea MC PRN PRN PRN Reason: PROTOCOL Stop: 08/07/17 10:42 Phytonadione (Mephyton) 10 mg GT DAILY [facility] Stop: 08/07/17 19:59 Last Admin: 06/24/17 08:27 Dose: 10 mg Potassium Chloride (Potassium Chloride Elixir) 20 meq GT TID [facility] Stop: 08/12/17 13:59 Last Admin: 06/24/17 20:13 Dose: 20 meq Propranolol HCl (Inderal) 20 mg GT TID [facility] Stop: 08/06/17 20:59 Last Admin: 06/24/17 20:15 Dose: Not Given Pyridoxine HCl (Vitamin B6) 100 mg GT DAILY [facility] Stop: 08/07/17 08:59 Last Admin: 06/24/17 08:28 Dose: 100 mg Sodium Phosphate (Fleet Enema) 135 ml RC Q48H PRN PRN Reason: IF DULCOLAX IS INEFFECTIVE Stop: 08/06/17 19:17 Temazepam (Restoril) 15 mg GT HS PRN; Protocol PRN Reason: Insomnia Stop: 08/19/17 19:18 Last Admin: 06/21/17 20:08 Dose: 15 mg Thiamine HCl (Vitamin B1) 100 mg GT DAILY [facility] Stop: 08/07/17 08:59 Last Admin: 06/24/17 08:28 Dose: 100 mg Valproate Sodium (Depakene) 500 mg GT TID [facility] PRN Reason: Protocol Stop: 08/06/17 20:59 Last Admin: 06/24/17 20:13 Dose: 500 mg General: Alert, No acute distress HEENT: Atraumatic, PERRLA, EOMI, Mucous membr. moist/pink, Other (tracheostomy) Neck: Supple, +2 carotid pulse wo bruit, Other (tracheostomy) Cardiovascular: Regular rate, Normal S1, Normal S2 Lungs: Clear to auscultation, Other (tracheostomy) Abdomen: Bowel sounds, Soft, Distended, Other (gastric tube and rectal tube) Extremities: no Edema Neurological: Sensation intact Skin: no Rash Psych/Mental Status: Mood NL - Procedures Procedures: Procedures Procedure Code Date RESPIRATORY VENTILATION, GREATER THAN 96 CONSECUTIVE HOURS [id number] 06/07/17 Assessment/Plan - Problem List Patient Problems: All Active Problems ELEVATED NA+, AND BUN LEVELS (Acute) Status post tracheostomy (Acute) Z93.0 Status post tracheostomy (Acute) Z93.0 - Assessment Assessment: * SPLENOMEGALY. * THROMBOCYTOPENIA. Fluctuating, S/P TX * RESPIRATORY FAILURE. * ANEMIA OF CHRONIC DISEASE. hgb stable * hypercalcemia, check PTH stool OB NEG no need for tx follow cbc, PTH Nutritional Asmnt/Malnutr-PDOC - Dietary Evaluation Malnutrition Findings (Please click <Entered> for more info): Nutritional Asmnt/Malnutrition Start: 06/09/17 11: 00 Text: Status: Complete Freq: Document 06/09/17 13:09 [facility] (Rec: 06/09/17 13:27 [facility] [id number]) Nutritional Asmnt/Malnutrition Patient General Information Nutritional Screening High Risk Screening Diagnosis Sepsis, UTI, right and left lower lobe infiltrate, pneumonia Pertinent Medical Hx/Surgical Hx Alcohol problem, liver disease , cirrhosis of the liver, hepatic comas, seizures, trachestomy, PEG, asthma, COPD Subjective Information Pt is a 52-year-old male from [facility] admitted with chief complaint of shortness of breath and falling oxygen saturation. Pt has tracheostomy to ventilator. Pt was unable to provide nutritional hx. Pt appears well nourished with no signs of muscle or fat depletion. Order to resume tube feeding; bag of Novosource Renal at bedside not yet started. Abdomen Ultrasound 06/09 notes some abdominal ascites. Current Diet Order/ Nutrition Support Novosource Renal at 55 ml/hr = 2640kcals, 120gm protein, 946ml free water Patient / S.O Can't verbalize diet edu Pertinent Medications Oscal with Vitamin D, Cefepime , D5w, Iron, Folate, Culturelle, MagOxide, Mephyton , KCl Elixir, Vitamin B6, Vitamin B1, Depakene, Vancomycin Pertinent Labs (06/09) Na 148H (improving), K 3L, Alkaline Phosphatase 171H, Ammonia 64H, Albumin 3.3L Nutritional Hx/Data Height 1.68 m Height (Calculated Centimeters) 167.6 Current Weight (lbs) 76.657 kg Weight (Calculated Kilograms) 76.7 Weight (Calculated Grams) 82720.1 Usual body Weight (lbs) 168 % Usual Body Weight 100 [place] Body Weight 142 % [place] Body Weight 119 Recent Weight Change No Weight Status Overweight GI Symptoms GI Symptoms Diarrhea Difficult in: Chewing Swallowing Food Allergies No Usual diet at home Nepro 1.8 (237 ml) QID 0900, 1300, 1700, 2100, sugar free ProStat 30 ml Skin Integrity/Comment: Vitor 12. Skin intact. Estimated Nutritional Goals BEE in Kcals: Using Current wt Calories/Kcals/Kg Based on current wt 76.8 kg with consideration of sepsis: Kcals Calculated 4184-1349 kcals/day (27-32 kcals/kg) to prevent wt gain with overwt status Protein: Using Current wt Protein g/kg: Based on current wt 76.8 kg with consideration of sepsis: Protein Calculated 92-115 gm/day (1.2-1.5 gm/kg) Fluid: ml Per MD/DO due to abnormal electrolytes Nutritional Problem 1. Problem Problem Excessive intake from enteral nutrition related to Etiology increased energy intake from calorically dense tube feeding formula as evidenced by Signs/Symptoms: current tube feeding meets 104 % of higher end of estimated calories needs. Malnutrition Alert Protein-Calorie Malnutrition N/A Is there a minimum of two criteria No selected? Query Text:Check all the applicable criteria. A minimum of two criteria are recommended for diagnosis of either severe or non-severe malnutrition. Malnutrition Related to Morbid Obesity Malnutrition related to morbid obesity No Intervention/Recommendation Recommendations by RD Decrease Calorie Intake Comments 1. Recommend decrease tube feeding Novosource Renal at goal rate of 50 ml/hr to provide 2400 kcals, 109 gm protein, and 860 ml free water per day. Monitor renal labs to prioritize protein needs. Expected Outcomes/Goals Expected Outcomes/Goals Provide pt with 100% of estimated nutritional needs. Physician Parameters for PEM Serum Albumin (g/dl) 3.1 - 3.4 (Mild)
--- NOTE | 2017-06-25 13:29 | General Progress Note ---
Subjective - Review of Systems Service Date: 06/25/17 Subjective: drowsy, arousable, on vent Objective - Results Result Diagrams: 06/24/17 04:50 06/25/17 04:35 Recent Labs: Laboratory Last Values WBC 4.9 Th/cmm (4.8-10.8) D 06/24/17 04:50 RBC 2.94 Mil/cmm (4.30-5.70) L 06/24/17 04:50 Hgb 9.4 gm/dL (13.2-17.3) L 06/24/17 04:50 Hct 27.7 % (39.0-49.0) L 06/24/17 04:50 MCV 94.2 fl (80-99) 06/24/17 04:50 MCH 32.0 pg (26.0-30.0) H 06/24/17 04:50 MCHC Differential 33.9 pg (28.0-36.0) 06/24/17 04:50 RDW 14.4 % (11.5-20.0) 06/24/17 04:50 Plt Count 56 Th/cmm (150-400) L 06/24/17 04:50 MPV 9.6 fl 06/24/17 04:50 Neutrophils % 59.2 % (40.0-80.0) 06/23/17 04:41 Band Neutrophils % 1 % (0-10) 06/24/17 04:50 Lymphocytes % 24.9 % (20.0-50.0) 06/23/17 04:41 Monocytes % 12.4 % (2.0-10.0) H 06/23/17 04:41 Eosinophils % 3.3 % (0.0-5.0) 06/23/17 04:41 Basophils % 0.2 % (0.0-2.0) 06/23/17 04:41 Neutrophils (Manual) 52 % (40-80) 06/24/17 04:50 Lymphocytes 30 % (20-50) 06/24/17 04:50 Monocytes 9 % (2-10) 06/24/17 04:50 Eosinophils 6 % (0-5) H 06/24/17 04:50 Basophils 2 % (0-3) 06/24/17 04:50 Metamyelocytes 2 % (0-0) H 06/13/17 07:20 Myelocytes 1 % 06/13/17 07:20 Nucleated RBCs 1.0 % (0-0) H 06/08/17 04:59 Platelet Estimate DECREASED PLATELETS (NORMAL) 06/24/17 04:50 Platelet Morphology PLATELET CLUMPS SEEN (NORMAL) 06/24/17 04:50 Polychromasia 1+ 06/18/17 04:59 Anisocytosis 1+ 06/24/17 04:50 RBC Morph Micro Appear ABNORMAL (NORMAL) 06/24/17 04:50 Specimen Source ARTERIAL 06/10/17 08:43 Sample Site Left Radial 06/10/17 08:43 pH 7.46 (7.35-7.45) H 06/10/17 08:43 pCO2 36.0 mmHg (35.0-45.0) 06/10/17 08:43 pO2 92.0 mmHg (80.0-100.0) 06/10/17 08:43 HCO3 26.4 mEq/L (20.0-26.0) H 06/10/17 08:43 Base Excess 1.9 mEq/L (-3.0-3.0) 06/10/17 08:43 O2 Saturation 98.0 % (92.0-100.0) 06/10/17 08:43 Jose L Test POSITIVE 06/10/17 08:43 Vent Rate 12 06/10/17 08:43 Inspired O2 40 06/10/17 08:43 Tidal Volume 500 06/10/17 08:43 PEEP 5 06/10/17 08:43 Pressure (ins/psv/peep) N/A 06/10/17 08:43 Critical Value SAURABH 06/10/17 08:43 Sodium 143 mEq/L (136-145) 06/25/17 04:35 Potassium 3.6 mEq/L (3.5-5.1) 06/25/17 04:35 Chloride 116 mEq/L (98-107) H 06/25/17 04:35 Carbon Dioxide 26.7 mEq/L (21.0-31.0) 06/25/17 04:35 Anion Gap 3.9 (7.0-16.0) L 06/25/17 04:35 BUN 29 mg/dL (7-25) H 06/25/17 04:35 Creatinine 0.6 mg/dL (0.7-1.3) L 06/25/17 04:35 Est GFR ( Amer) > 60.0 ml/min (>90) 06/25/17 04:35 Est GFR (Non-Af Amer) > 60.0 ml/min 06/25/17 04:35 BUN/Creatinine Ratio 48.3 06/25/17 04:35 Glucose 133 mg/dL (70-105) H 06/25/17 04:35 Plasma/Ser Osmolality 313 mOsmol/kg (275-295) H 06/09/17 05:07 Whole Bld Lactic Acid 1.51 mmol/L (0.60-1.99) 06/08/17 04:59 Calcium 10.2 mg/dL (8.6-10.3) 06/25/17 04:35 Phosphorus 2.7 mg/dL (2.5-5.0) 06/08/17 04:59 Magnesium 1.6 mg/dL (1.9-2.7) L 06/14/17 05:00 Iron 71 ug/dL (38-169) 06/08/17 04:59 TIBC 173 ug/dL (250-450) L 06/08/17 04:59 Iron Saturation 41 % (15-55) 06/08/17 04:59 Unsaturated IBC 102 ug/dL (111-343) L 06/08/17 04:59 Ferritin 303 ng/mL (30-400) 06/08/17 04:59 Total Bilirubin 0.9 mg/dL (0.3-1.0) 06/24/17 04:50 Direct Bilirubin 0.29 mg/dL (0.0-0.2) H 06/16/17 04:40 AST 36 U/L (13-39) 06/24/17 04:50 ALT 17 U/L (7-52) 06/24/17 04:50 Alkaline Phosphatase 170 U/L (34-104) H 06/24/17 04:50 Ammonia 74 umol/L (16-53) H 06/24/17 04:50 Troponin I 0.01 ng/mL (0.01-0.05) 06/07/17 13:28 B-Natriuretic Peptide 91.8 pg/mL (5.0-100.0) 06/07/17 13:28 Total Protein 7.9 gm/dL (6.0-8.3) 06/24/17 04:50 Albumin 2.6 gm/dL (4.2-5.5) L 06/24/17 04:50 Globulin 5.3 gm/dL 06/24/17 04:50 Albumin/Globulin Ratio 0.5 (1.0-1.8) L 06/24/17 04:50 Vitamin B12 >1999 pg/mL (211-946) H 06/08/17 04:59 Folic Acid >20.0 ng/mL (>3.0) 06/08/17 04:59 Urine Source RANDOM 06/07/17 13:25 Urine Color NISA 06/07/17 13:25 Urine Clarity CLOUDY (CLEAR) 06/07/17 13:25 Urine pH 5.5 (4.6 - 8.0) 06/07/17 13:25 Ur Specific [place] 1.020 (1.005-1.030) 06/07/17 13:25 Urine Protein >=300 mg/dL (NEGATIVE) 06/07/17 13:25 Urine Glucose (UA) NEGATIVE mg/dL (NEGATIVE) 06/07/17 13:25 Urine Ketones 15 mg/dL (NEGATIVE) H 06/07/17 13:25 Urine Blood LARGE (NEGATIVE) H 06/07/17 13:25 Urine Nitrate POSITIVE (NEGATIVE) H 06/07/17 13:25 Urine Bilirubin MODERATE (NEGATIVE) H 06/07/17 13:25 Urine Urobilinogen 2.0 E.U./dL (0.2 - 1.0) 06/07/17 13:25 Ur Leukocyte Esterase MODERATE (NEGATIVE) H 06/07/17 13:25 Urine RBC >100 /hpf (0-5) H 06/07/17 13:25 Urine WBC 2-5 /hpf (0-5) H 06/07/17 13:25 Ur Epithelial Cells OCCASIONAL /lpf (FEW) 06/07/17 13:25 Urine Bacteria FEW /hpf (NONE SEEN) 06/07/17 13:25 Urine Osmolality 776 mOsmol/kg 06/09/17 05:53 Ur Random Sodium 119 mmol/L 06/08/17 18:16 Stool Occult Blood NEGATIVE (NEGATIVE) 06/22/17 07:15 Vancomycin Trough 22.8 ug/mL (10-20) H 06/24/17 09:08 Blood Type O POSITIVE 06/09/17 09:30 Antibody Screen NEGATIVE 06/09/17 09:30 - Physical Exam Vitals and I&O: Vital Signs Temp 96.2 F 06/25/17 08:00 Pulse 69 06/25/17 11:47 Resp 14 06/25/17 10:00 BP 110/57 06/25/17 10:00 Pulse Ox 100 06/25/17 11:47 Intake & Output 06/24/17 06/25/17 06/25/17 18:59 06:59 18:59 Intake Total 1600 2000 Output Total 930 1250 Balance 670 750 Weight (lbs) 84.141 kg 83.552 kg Intake: Intake, IV Amount 250 1000 Dextrose 5% 1,000 ml @ 75 1000 mls/hr IV .[id number] [facility] Rx#:[id number] Vancomycin HCl 1.25 gm In 250 Sodium Chloride 0.9% 250 ml @ 165 mls/hr IV Q18H [facility] Rx#:[id number] Tube Feeding 600 600 Other 750 400 Output: Urine 480 650 Stool 450 600 Other: Stool Characteristics Liquid Liquid Liquid Brown Brown Active Medications: Current Medications Albuterol/Ipratropium (Duoneb Neb) 3 ml HHN Q4HRT [facility] Stop: 08/07/17 18:59 Last Admin: 06/25/17 11:44 Dose: 3 ml Amlodipine Besylate (Norvasc) 5 mg GT Q12HR [facility] Stop: 08/06/17 20:59 Last Admin: 06/25/17 09:00 Dose: Not Given Artificial Tears (Artificial Tears Ophth Soln) 2 drop EACH EYE Q6H PRN PRN Reason: eye dryness Stop: 08/06/17 20:54 Last Admin: 06/16/17 09:32 Dose: 2 drop Atorvastatin Calcium (Lipitor) 10 mg GT HS [place] PRN Reason: Protocol Stop: 08/06/17 20:59 Last Admin: 06/24/17 20:14 Dose: 10 mg Bisacodyl (Dulcolax 10 Mg Supp) 10 mg RC DAILY PRN PRN Reason: Constipation Stop: 08/06/17 19:17 Budesonide (Pulmicort) 0.5 mg HHN BIDRT [facility] Stop: 08/07/17 18:59 Last Admin: 06/25/17 08:01 Dose: 0.5 mg Calcium/Vitamin D (Oscal W/Vitamin D) 1 tab GT DAILY [place] Stop: 08/07/17 08:59 Last Admin: 06/25/17 09:00 Dose: Not Given Chlorhexidine Gluconate (Peridex) 15 ml MM 799,1999 [facility] Stop: 08/08/17 19:59 Last Admin: 06/25/17 08:26 Dose: 15 ml Clonazepam (Klonopin) 2 mg GT DAILY [place] PRN Reason: Protocol Stop: 08/20/17 13:44 Last Admin: 06/25/17 09:00 Dose: Not Given Folic Acid (Folate) 2.5 mg GT DAILY [place] Stop: 08/07/17 08:59 Last Admin: 06/25/17 09:00 Dose: Not Given Hydralazine HCl (Apresoline) 50 mg GT Q8HR [place] Stop: 08/06/17 20:59 Last Admin: 06/25/17 05:04 Dose: Not Given Dextrose (D5w) 1,000 mls @ 75 mls/hr IV .[id number] [facility] Stop: 08/22/17 13:22 Last Admin: 06/24/17 23:22 Dose: 75 mls/hr Lactobacillus Rhamnosus (Culturelle) 1 each PO DAILY [place] Stop: 08/08/17 08:59 Last Admin: 06/25/17 09:00 Dose: Not Given Lactulose (Cephulac) 30 gm GT Q6HR [place] Stop: 08/08/17 17:59 Last Admin: 06/25/17 05:03 Dose: 30 gm Levetiracetam (Keppra) 1,000 mg GT Q8HR [facility] Stop: 08/06/17 20:59 Last Admin: 06/25/17 05:03 Dose: 1,000 mg Lorazepam (Ativan) 1 mg IVP Q6H PRN; Protocol PRN Reason: Agitation Stop: 08/13/17 23:17 Last Admin: 06/24/17 10:55 Dose: 1 mg Magnesium Hydroxide (Milk Of Magnesia) 30 ml GT HS PRN PRN Reason: Constipation Stop: 08/06/17 19:17 Magnesium Oxide (Mag-Oxide) 400 mg GT DAILY [place] Stop: 08/07/17 08:59 Last Admin: 06/25/17 09:00 Dose: Not Given Metoprolol Tartrate (Lopressor) 100 mg GT Q12HR [facility] Stop: 08/06/17 20:59 Last Admin: 06/25/17 09:00 Dose: Not Given Miscellaneous (Probiotic Screen) 1 ea MC PRN PRN PRN Reason: PROTOCOL Stop: 08/07/17 10:42 Phytonadione (Mephyton) 10 mg GT DAILY [facility] Stop: 08/07/17 19:59 Last Admin: 06/25/17 09:00 Dose: Not Given Potassium Chloride (Potassium Chloride Elixir) 20 meq GT TID [facility] Stop: 08/12/17 13:59 Last Admin: 06/25/17 09:00 Dose: Not Given Propranolol HCl (Inderal) 20 mg GT TID [facility] Stop: 08/06/17 20:59 Last Admin: 06/25/17 09:00 Dose: Not Given Pyridoxine HCl (Vitamin B6) 100 mg GT DAILY [facility] Stop: 08/07/17 08:59 Last Admin: 06/25/17 09:00 Dose: Not Given Sodium Phosphate (Fleet Enema) 135 ml RC Q48H PRN PRN Reason: IF DULCOLAX IS INEFFECTIVE Stop: 08/06/17 19:17 Temazepam (Restoril) 15 mg GT HS PRN; Protocol PRN Reason: Insomnia Stop: 08/19/17 19:18 Last Admin: 06/21/17 20:08 Dose: 15 mg Thiamine HCl (Vitamin B1) 100 mg GT DAILY [facility] Stop: 08/07/17 08:59 Last Admin: 06/25/17 09:00 Dose: Not Given Valproate Sodium (Depakene) 500 mg GT TID [facility] PRN Reason: Protocol Stop: 08/06/17 20:59 Last Admin: 06/25/17 09:00 Dose: Not Given General: Alert, No acute distress HEENT: Atraumatic, PERRLA, EOMI, Mucous membr. moist/pink, Other (tracheostomy) Neck: Supple, +2 carotid pulse wo bruit, Other (tracheostomy) Cardiovascular: Regular rate, Normal S1, Normal S2 Lungs: Clear to auscultation, Other (tracheostomy) Abdomen: Bowel sounds, Soft, Distended, Other (gastric tube and rectal tube) Extremities: no Edema Neurological: Sensation intact Skin: no Rash Psych/Mental Status: Mood NL - Procedures Procedures: Procedures Procedure Code Date RESPIRATORY VENTILATION, GREATER THAN 96 CONSECUTIVE HOURS [id number] 06/07/17 Assessment/Plan - Problem List Patient Problems: All Active Problems ELEVATED NA+, AND BUN LEVELS (Acute) Status post tracheostomy (Acute) Z93.0 Status post tracheostomy (Acute) Z93.0 - Assessment Assessment: Hypernatremia RFVD Sepsis etio? CLD Thrombocytopenia Anemia of CD Hypokalemia - Plan Plan: Lab - Result Diagrams 06/09/17 09:30 06/09/17 05:07 Current Medications Albuterol/Ipratropium (Duoneb Neb) 3 ml HHN Q4HR [facility] Stop: 08/06/17 19:59 Last Admin: 06/09/17 11:08 Dose: 3 ml Albuterol/Ipratropium (Duoneb Neb) 3 ml HHN Q4HRT [facility] Stop: 08/07/17 18:59 Amlodipine Besylate (Norvasc) 5 mg GT Q12HR [facility] Stop: 08/06/17 20:59 Last Admin: 06/09/17 10:05 Dose: 5 mg Artificial Tears (Artificial Tears Ophth Soln) 2 drop EACH EYE Q6H PRN PRN Reason: eye dryness Stop: 08/06/17 20:54 Atorvastatin Calcium (Lipitor) 10 mg GT HS [place] PRN Reason: Protocol Stop: 08/06/17 20:59 Last Admin: 06/08/17 21:32 Dose: 10 mg Bisacodyl (Dulcolax 10 Mg Supp) 10 mg RC DAILY PRN PRN Reason: Constipation Stop: 08/06/17 19:17 Budesonide (Pulmicort) 0.5 mg HHN BIDRT [facility] Stop: 08/07/17 18:59 Last Admin: 06/08/17 19:10 Dose: 0.5 mg Calcium/Vitamin D (Oscal W/Vitamin D) 1 tab GT DAILY [facility] Stop: 08/07/17 08:59 Last Admin: 06/09/17 10:05 Dose: 1 tab Chlorhexidine Gluconate (Peridex) 15 ml MM Q12HR [facility] Stop: 08/06/17 20:59 Last Admin: 06/09/17 09:00 Dose: 15 ml Clonazepam (Klonopin) 2 mg GT DAILY [facility] Stop: 08/07/17 08:59 Last Admin: 06/09/17 10:05 Dose: 2 mg Docusate Sodium (Colace) 100 mg GT BID [facility] Stop: 08/06/17 20:59 Last Admin: 06/09/17 09:00 Dose: Not Given Ferrous Sulfate (Iron) 300 mg GT BID [facility] Stop: 08/06/17 20:59 Last Admin: 06/09/17 10:03 Dose: 300 mg Folic Acid (Folate) 2.5 mg GT DAILY [facility] Stop: 08/07/17 08:59 Last Admin: 06/09/17 10:05 Dose: 2.5 mg Hydralazine HCl (Apresoline) 50 mg GT Q8HR [facility] Stop: 08/06/17 20:59 Last Admin: 06/09/17 12:56 Dose: 50 mg Cefepime HCl 1 gm/ Dextrose 50 mls @ 100 mls/hr IV Q8H [facility] Stop: 08/07/17 00:59 Last Infusion: 06/09/17 09:30 Dose: Infused Vancomycin HCl 1.25 gm/ Sodium (Chloride) 250 mls @ 165 mls/hr IV Q12H [facility] Stop: 08/07/17 09:59 Last Infusion: 06/09/17 11:31 Dose: Infused Dextrose (D5w) 1,000 mls @ 150 mls/hr IV .Q6H40M [facility] Stop: 08/07/17 09:37 Last Admin: 06/09/17 07:33 Dose: 150 mls/hr Lactobacillus Rhamnosus (Culturelle) 1 each PO DAILY [facility] Stop: 08/08/17 08:59 Last Admin: 06/09/17 10:04 Dose: 1 each Lactulose (Cephulac) 30 gm GT Q8HR [facility] Stop: 08/06/17 20:59 Last Admin: 06/09/17 12:56 Dose: Not Given Levetiracetam (Keppra) 1,000 mg GT Q8HR [facility] Stop: 08/06/17 20:59 Last Admin: 06/09/17 12:56 Dose: 1,000 mg Magnesium Hydroxide (Milk Of Magnesia) 30 ml GT HS PRN PRN Reason: Constipation Stop: 08/06/17 19:17 Magnesium Oxide (Mag-Oxide) 400 mg GT DAILY [facility] Stop: 08/07/17 08:59 Last Admin: 06/09/17 10:04 Dose: 400 mg Metoprolol Tartrate (Lopressor) 100 mg GT Q12HR [facility] Stop: 08/06/17 20:59 Last Admin: 06/09/17 10:04 Dose: 100 mg Miscellaneous (Vancomycin Iv Per Pharmacy) 1 ea PRN PRN PRN Reason: PROTOCOL Stop: 08/07/17 07:59 Miscellaneous (Probiotic Screen) 1 ea PRN PRN PRN Reason: PROTOCOL Stop: 08/07/17 10:42 Phytonadione (Mephyton) 10 mg GT DAILY [facility] Stop: 08/07/17 19:59 Last Admin: 06/09/17 10:06 Dose: 10 mg Potassium Chloride (Potassium Chloride Elixir) 20 meq GT BID [facility] Stop: 08/07/17 08:59 Last Admin: 06/09/17 11:30 Dose: 20 meq Propranolol HCl (Inderal) 20 mg GT TID [facility] Stop: 08/06/17 20:59 Last Admin: 06/09/17 10:03 Dose: 20 mg Pyridoxine HCl (Vitamin B6) 100 mg GT DAILY [facility] Stop: 08/07/17 08:59 Last Admin: 06/09/17 10:05 Dose: 100 mg Rifaximin (Xifaxan) 500 mg PO BID [facility] Stop: 08/07/17 16:59 Last Admin: 06/09/17 10:06 Dose: 500 mg Sodium Phosphate (Fleet Enema) 135 ml RC Q48H PRN PRN Reason: IF DULCOLAX IS INEFFECTIVE Stop: 08/06/17 19:17 Thiamine HCl (Vitamin B1) 100 mg GT DAILY [facility] Stop: 08/07/17 08:59 Last Admin: 06/09/17 10:05 Dose: 100 mg Valproate Sodium (Depakene) 500 mg GT TID [place] PRN Reason: Protocol Stop: 08/06/17 20:59 Last Admin: 06/09/17 10:03 Dose: 500 mg CXR: CM, B/L ATx electrolytes has improved On D5W @ 75 ml/hr, Na down to 143 F/U electrolytes, cbc continue lactulose, ivf Lab - Result Diagrams 06/24/17 04:50 06/25/17 04:35 Nutritional Asmnt/Malnutr-PDOC - Dietary Evaluation Malnutrition Findings (Please click <Entered> for more info): Nutritional Asmnt/Malnutrition Start: 06/09/17 11: 00 Text: Status: Complete Freq: Document 06/09/17 13:09 [facility] (Rec: 06/09/17 13:27 [facility] [id number]) Nutritional Asmnt/Malnutrition Patient General Information Nutritional Screening High Risk Screening Diagnosis Sepsis, UTI, right and left lower lobe infiltrate, pneumonia Pertinent Medical Hx/Surgical Hx Alcohol problem, liver disease , cirrhosis of the liver, hepatic comas, seizures, trachestomy, PEG, asthma, COPD Subjective Information Pt is a 52-year-old male from [facility] admitted with chief complaint of shortness of breath and falling oxygen saturation. Pt has tracheostomy to ventilator. Pt was unable to provide nutritional hx. Pt appears well nourished with no signs of muscle or fat depletion. Order to resume tube feeding; bag of Novosource Renal at bedside not yet started. Abdomen Ultrasound 06/09 notes some abdominal ascites. Current Diet Order/ Nutrition Support Novosource Renal at 55 ml/hr = 2640kcals, 120gm protein, 946ml free water Patient / S.O Can't verbalize diet edu Pertinent Medications Oscal with Vitamin D, Cefepime , D5w, Iron, Folate, Culturelle, MagOxide, Mephyton , KCl Elixir, Vitamin B6, Vitamin B1, Depakene, Vancomycin Pertinent Labs (06/09) Na 148H (improving), K 3L, Alkaline Phosphatase 171H, Ammonia 64H, Albumin 3.3L Nutritional Hx/Data Height 1.68 m Height (Calculated Centimeters) 167.6 Current Weight (lbs) 76.657 kg Weight (Calculated Kilograms) 76.7 Weight (Calculated Grams) 99139.1 Usual body Weight (lbs) 168 % Usual Body Weight 100 [place] Body Weight 142 % [place] Body Weight 119 Recent Weight Change No Weight Status Overweight GI Symptoms GI Symptoms Diarrhea Difficult in: Chewing Swallowing Food Allergies No Usual diet at home Nepro 1.8 (237 ml) QID 0900, 1300, 1700, 2100, sugar free ProStat 30 ml Skin Integrity/Comment: Vitor Thomas. Skin intact. Estimated Nutritional Goals BEE in Kcals: Using Current wt Calories/Kcals/Kg Based on current wt 76.8 kg with consideration of sepsis: Kcals Calculated 7544-3975 kcals/day (27-32 kcals/kg) to prevent wt gain with overwt status Protein: Using Current wt Protein g/kg: Based on current wt 76.8 kg with consideration of sepsis: Protein Calculated 92-115 gm/day (1.2-1.5 gm/kg) Fluid: ml Per MD/DO due to abnormal electrolytes Nutritional Problem 1. Problem Problem Excessive intake from enteral nutrition related to Etiology increased energy intake from calorically dense tube feeding formula as evidenced by Signs/Symptoms: current tube feeding meets 104 % of higher end of estimated calories needs. Malnutrition Alert Protein-Calorie Malnutrition N/A Is there a minimum of two criteria No selected? Query Text:Check all the applicable criteria. A minimum of two criteria are recommended for diagnosis of either severe or non-severe malnutrition. Malnutrition Related to Morbid Obesity Malnutrition related to morbid obesity No Intervention/Recommendation Recommendations by RD Decrease Calorie Intake Comments 1. Recommend decrease tube feeding Novosource Renal at goal rate of 50 ml/hr to provide 2400 kcals, 109 gm protein, and 860 ml free water per day. Monitor renal labs to prioritize protein needs. Expected Outcomes/Goals Expected Outcomes/Goals Provide pt with 100% of estimated nutritional needs. Physician Parameters for PEM Serum Albumin (g/dl) 3.1 - 3.4 (Mild)
[2017-06-25] MEDS: Dextrose 5% 1,000 ML IV SCH (13:58)
--- NOTE | 2017-06-25 14:58 | Diagnostic Imaging Report ---
Upper GI with Gastrografin HISTORY: G-tube confirmation COMPARISON: upper GI examination on 06/18/2017 FINDINGS: Rug Scratcher view demonstrates a nonspecific bowel gas pattern. Percutaneous gastric feeding tube is noted. The second image demonstrates contrast opacification of the stomach and small bowel loops. IMPRESSION: Intraluminal confirmation of patient's percutaneous gastric feeding tube.
--- NOTE | 2017-06-25 15:01 | General Progress Note ---
Subjective - Review of Systems Events since last encounter: drowsy, on vent Subjective: on vent, afebrile nad Objective - Results Result Diagrams: 06/24/17 04:50 06/25/17 04:35 Recent Labs: Laboratory Last Values WBC 4.9 Th/cmm (4.8-10.8) D 06/24/17 04:50 RBC 2.94 Mil/cmm (4.30-5.70) L 06/24/17 04:50 Hgb 9.4 gm/dL (13.2-17.3) L 06/24/17 04:50 Hct 27.7 % (39.0-49.0) L 06/24/17 04:50 MCV 94.2 fl (80-99) 06/24/17 04:50 MCH 32.0 pg (26.0-30.0) H 06/24/17 04:50 MCHC Differential 33.9 pg (28.0-36.0) 06/24/17 04:50 RDW 14.4 % (11.5-20.0) 06/24/17 04:50 Plt Count 56 Th/cmm (150-400) L 06/24/17 04:50 MPV 9.6 fl 06/24/17 04:50 Neutrophils % 59.2 % (40.0-80.0) 06/23/17 04:41 Band Neutrophils % 1 % (0-10) 06/24/17 04:50 Lymphocytes % 24.9 % (20.0-50.0) 06/23/17 04:41 Monocytes % 12.4 % (2.0-10.0) H 06/23/17 04:41 Eosinophils % 3.3 % (0.0-5.0) 06/23/17 04:41 Basophils % 0.2 % (0.0-2.0) 06/23/17 04:41 Neutrophils (Manual) 52 % (40-80) 06/24/17 04:50 Lymphocytes 30 % (20-50) 06/24/17 04:50 Monocytes 9 % (2-10) 06/24/17 04:50 Eosinophils 6 % (0-5) H 06/24/17 04:50 Basophils 2 % (0-3) 06/24/17 04:50 Metamyelocytes 2 % (0-0) H 06/13/17 07:20 Myelocytes 1 % 06/13/17 07:20 Nucleated RBCs 1.0 % (0-0) H 06/08/17 04:59 Platelet Estimate DECREASED PLATELETS (NORMAL) 06/24/17 04:50 Platelet Morphology PLATELET CLUMPS SEEN (NORMAL) 06/24/17 04:50 Polychromasia 1+ 06/18/17 04:59 Anisocytosis 1+ 06/24/17 04:50 RBC Morph Micro Appear ABNORMAL (NORMAL) 06/24/17 04:50 Specimen Source ARTERIAL 06/10/17 08:43 Sample Site Left Radial 06/10/17 08:43 pH 7.46 (7.35-7.45) H 06/10/17 08:43 pCO2 36.0 mmHg (35.0-45.0) 06/10/17 08:43 pO2 92.0 mmHg (80.0-100.0) 06/10/17 08:43 HCO3 26.4 mEq/L (20.0-26.0) H 06/10/17 08:43 Base Excess 1.9 mEq/L (-3.0-3.0) 06/10/17 08:43 O2 Saturation 98.0 % (92.0-100.0) 06/10/17 08:43 Jose L Test POSITIVE 06/10/17 08:43 Vent Rate 12 06/10/17 08:43 Inspired O2 40 06/10/17 08:43 Tidal Volume 500 06/10/17 08:43 PEEP 5 06/10/17 08:43 Pressure (ins/psv/peep) N/A 06/10/17 08:43 Critical Value SAURABH 06/10/17 08:43 Sodium 143 mEq/L (136-145) 06/25/17 04:35 Potassium 3.6 mEq/L (3.5-5.1) 06/25/17 04:35 Chloride 116 mEq/L (98-107) H 06/25/17 04:35 Carbon Dioxide 26.7 mEq/L (21.0-31.0) 06/25/17 04:35 Anion Gap 3.9 (7.0-16.0) L 06/25/17 04:35 BUN 29 mg/dL (7-25) H 06/25/17 04:35 Creatinine 0.6 mg/dL (0.7-1.3) L 06/25/17 04:35 Est GFR ( Amer) > 60.0 ml/min (>90) 06/25/17 04:35 Est GFR (Non-Af Amer) > 60.0 ml/min 06/25/17 04:35 BUN/Creatinine Ratio 48.3 06/25/17 04:35 Glucose 133 mg/dL (70-105) H 06/25/17 04:35 Plasma/Ser Osmolality 313 mOsmol/kg (275-295) H 06/09/17 05:07 Whole Bld Lactic Acid 1.51 mmol/L (0.60-1.99) 06/08/17 04:59 Calcium 10.2 mg/dL (8.6-10.3) 06/25/17 04:35 Phosphorus 2.7 mg/dL (2.5-5.0) 06/08/17 04:59 Magnesium 1.6 mg/dL (1.9-2.7) L 06/14/17 05:00 Iron 71 ug/dL (38-169) 06/08/17 04:59 TIBC 173 ug/dL (250-450) L 06/08/17 04:59 Iron Saturation 41 % (15-55) 06/08/17 04:59 Unsaturated IBC 102 ug/dL (111-343) L 06/08/17 04:59 Ferritin 303 ng/mL (30-400) 06/08/17 04:59 Total Bilirubin 0.9 mg/dL (0.3-1.0) 06/24/17 04:50 Direct Bilirubin 0.29 mg/dL (0.0-0.2) H 06/16/17 04:40 AST 36 U/L (13-39) 06/24/17 04:50 ALT 17 U/L (7-52) 06/24/17 04:50 Alkaline Phosphatase 170 U/L (34-104) H 06/24/17 04:50 Ammonia 74 umol/L (16-53) H 06/24/17 04:50 Troponin I 0.01 ng/mL (0.01-0.05) 06/07/17 13:28 B-Natriuretic Peptide 91.8 pg/mL (5.0-100.0) 06/07/17 13:28 Total Protein 7.9 gm/dL (6.0-8.3) 06/24/17 04:50 Albumin 2.6 gm/dL (4.2-5.5) L 06/24/17 04:50 Globulin 5.3 gm/dL 06/24/17 04:50 Albumin/Globulin Ratio 0.5 (1.0-1.8) L 06/24/17 04:50 Vitamin B12 >1999 pg/mL (211-946) H 06/08/17 04:59 Folic Acid >20.0 ng/mL (>3.0) 06/08/17 04:59 Urine Source RANDOM 06/07/17 13:25 Urine Color NISA 06/07/17 13:25 Urine Clarity CLOUDY (CLEAR) 06/07/17 13:25 Urine pH 5.5 (4.6 - 8.0) 06/07/17 13:25 Ur Specific Ola 1.020 (1.005-1.030) 06/07/17 13:25 Urine Protein >=300 mg/dL (NEGATIVE) 06/07/17 13:25 Urine Glucose (UA) NEGATIVE mg/dL (NEGATIVE) 06/07/17 13:25 Urine Ketones 15 mg/dL (NEGATIVE) H 06/07/17 13:25 Urine Blood LARGE (NEGATIVE) H 06/07/17 13:25 Urine Nitrate POSITIVE (NEGATIVE) H 06/07/17 13:25 Urine Bilirubin MODERATE (NEGATIVE) H 06/07/17 13:25 Urine Urobilinogen 2.0 E.U./dL (0.2 - 1.0) 06/07/17 13:25 Ur Leukocyte Esterase MODERATE (NEGATIVE) H 06/07/17 13:25 Urine RBC >100 /hpf (0-5) H 06/07/17 13:25 Urine WBC 2-5 /hpf (0-5) H 06/07/17 13:25 Ur Epithelial Cells OCCASIONAL /lpf (FEW) 06/07/17 13:25 Urine Bacteria FEW /hpf (NONE SEEN) 06/07/17 13:25 Urine Osmolality 776 mOsmol/kg 06/09/17 05:53 Ur Random Sodium 119 mmol/L 06/08/17 18:16 Stool Occult Blood NEGATIVE (NEGATIVE) 06/22/17 07:15 Vancomycin Trough 22.8 ug/mL (10-20) H 06/24/17 09:08 Blood Type O POSITIVE 06/09/17 09:30 Antibody Screen NEGATIVE 06/09/17 09:30 - Physical Exam Vitals and I&O: Vital Signs Temp 97.0 F 06/25/17 12:00 Pulse 72 06/25/17 13:31 Resp 14 06/25/17 13:00 BP 122/68 06/25/17 13:00 Pulse Ox 100 06/25/17 13:31 Intake & Output 06/24/17 06/25/17 06/25/17 18:59 06:59 18:59 Intake Total 1600 2000 1000 Output Total 930 1250 Balance 595 398 6418 Weight (lbs) 84.141 kg 83.552 kg Intake: Intake, IV Amount 250 1000 1000 Dextrose 5% 1,000 ml @ 75 1000 1000 mls/hr IV .[id number] [facility] Rx#:[id number] Vancomycin HCl 1.25 gm In 250 Sodium Chloride 0.9% 250 ml @ 165 mls/hr IV Q18H [facility] Rx#:[id number] Tube Feeding 600 600 Other 750 400 Output: Urine 480 650 Stool 450 600 Other: Stool Characteristics Liquid Liquid Liquid Brown Brown Active Medications: Current Medications Albuterol/Ipratropium (Duoneb Neb) 3 ml HHN Q4HRT [facility] Stop: 08/07/17 18:59 Last Admin: 06/25/17 11:44 Dose: 3 ml Amlodipine Besylate (Norvasc) 5 mg GT Q12HR [facility] Stop: 08/06/17 20:59 Last Admin: 06/25/17 09:00 Dose: Not Given Artificial Tears (Artificial Tears Ophth Soln) 2 drop EACH EYE Q6H PRN PRN Reason: eye dryness Stop: 08/06/17 20:54 Last Admin: 06/16/17 09:32 Dose: 2 drop Atorvastatin Calcium (Lipitor) 10 mg GT HS [place] PRN Reason: Protocol Stop: 08/06/17 20:59 Last Admin: 06/24/17 20:14 Dose: 10 mg Bisacodyl (Dulcolax 10 Mg Supp) 10 mg RC DAILY PRN PRN Reason: Constipation Stop: 08/06/17 19:17 Budesonide (Pulmicort) 0.5 mg HHN BIDRT [facility] Stop: 08/07/17 18:59 Last Admin: 06/25/17 08:01 Dose: 0.5 mg Calcium/Vitamin D (Oscal W/Vitamin D) 1 tab GT DAILY [facility] Stop: 08/07/17 08:59 Last Admin: 06/25/17 09:00 Dose: Not Given Chlorhexidine Gluconate (Peridex) 15 ml MM 08,1999 [facility] Stop: 08/08/17 19:59 Last Admin: 06/25/17 08:26 Dose: 15 ml Clonazepam (Klonopin) 2 mg GT DAILY [place] PRN Reason: Protocol Stop: 08/20/17 13:44 Last Admin: 06/25/17 09:00 Dose: Not Given Folic Acid (Folate) 2.5 mg GT DAILY [place] Stop: 08/07/17 08:59 Last Admin: 06/25/17 09:00 Dose: Not Given Hydralazine HCl (Apresoline) 50 mg GT Q8HR [place] Stop: 08/06/17 20:59 Last Admin: 06/25/17 05:04 Dose: Not Given Dextrose (D5w) 1,000 mls @ 75 mls/hr IV .[id number] [facility] Stop: 08/22/17 13:22 Last Admin: 06/25/17 13:58 Dose: 75 mls/hr Lactobacillus Rhamnosus (Culturelle) 1 each PO DAILY [facility] Stop: 08/08/17 08:59 Last Admin: 06/25/17 09:00 Dose: Not Given Lactulose (Cephulac) 30 gm GT Q6HR [place] Stop: 08/08/17 17:59 Last Admin: 06/25/17 05:03 Dose: 30 gm Levetiracetam (Keppra) 1,000 mg GT Q8HR [place] Stop: 08/06/17 20:59 Last Admin: 06/25/17 05:03 Dose: 1,000 mg Lorazepam (Ativan) 1 mg IVP Q6H PRN; Protocol PRN Reason: Agitation Stop: 08/13/17 23:17 Last Admin: 06/24/17 10:55 Dose: 1 mg Magnesium Hydroxide (Milk Of Magnesia) 30 ml GT HS PRN PRN Reason: Constipation Stop: 08/06/17 19:17 Magnesium Oxide (Mag-Oxide) 400 mg GT DAILY [facility] Stop: 08/07/17 08:59 Last Admin: 06/25/17 09:00 Dose: Not Given Metoprolol Tartrate (Lopressor) 100 mg GT Q12HR [facility] Stop: 08/06/17 20:59 Last Admin: 06/25/17 09:00 Dose: Not Given Miscellaneous (Probiotic Screen) 1 ea MC PRN PRN PRN Reason: PROTOCOL Stop: 08/07/17 10:42 Phytonadione (Mephyton) 10 mg GT DAILY [facility] Stop: 08/07/17 19:59 Last Admin: 06/25/17 09:00 Dose: Not Given Potassium Chloride (Potassium Chloride Elixir) 20 meq GT TID [facility] Stop: 08/12/17 13:59 Last Admin: 06/25/17 09:00 Dose: Not Given Propranolol HCl (Inderal) 20 mg GT TID [facility] Stop: 08/06/17 20:59 Last Admin: 06/25/17 09:00 Dose: Not Given Pyridoxine HCl (Vitamin B6) 100 mg GT DAILY [facility] Stop: 08/07/17 08:59 Last Admin: 06/25/17 09:00 Dose: Not Given Sodium Phosphate (Fleet Enema) 135 ml RC Q48H PRN PRN Reason: IF DULCOLAX IS INEFFECTIVE Stop: 08/06/17 19:17 Temazepam (Restoril) 15 mg GT HS PRN; Protocol PRN Reason: Insomnia Stop: 08/19/17 19:18 Last Admin: 06/21/17 20:08 Dose: 15 mg Thiamine HCl (Vitamin B1) 100 mg GT DAILY [facility] Stop: 08/07/17 08:59 Last Admin: 06/25/17 09:00 Dose: Not Given Valproate Sodium (Depakene) 500 mg GT TID [facility] PRN Reason: Protocol Stop: 08/06/17 20:59 Last Admin: 06/25/17 09:00 Dose: Not Given General: Alert, No acute distress HEENT: Atraumatic, PERRLA, EOMI, Mucous membr. moist/pink, Other (tracheostomy) Neck: Supple, +2 carotid pulse wo bruit, Other (tracheostomy) Cardiovascular: Regular rate, Normal S1, Normal S2 Lungs: Clear to auscultation, Other (tracheostomy) Abdomen: Bowel sounds, Soft, Distended, Other (gastric tube and rectal tube) Extremities: no Edema Neurological: Sensation intact Skin: no Rash Psych/Mental Status: Mood NL - Procedures Procedures: Procedures Procedure Code Date RESPIRATORY VENTILATION, GREATER THAN 96 CONSECUTIVE HOURS [id number] 06/07/17 Assessment/Plan - Problem List Patient Problems: All Active Problems ELEVATED NA+, AND BUN LEVELS (Acute) Status post tracheostomy (Acute) Z93.0 Status post tracheostomy (Acute) Z93.0 - Assessment Assessment: s/p respiratory failure pnumonia s/p trch and peg trmors h/o alcoholism h/o sizures - Plan Plan: iv antibiotics vent support continue current plan of care am labs Nutritional Asmnt/Malnutr-PDOC - Dietary Evaluation Malnutrition Findings (Please click <Entered> for more info): Nutritional Asmnt/Malnutrition Start: 06/09/17 11: 00 Text: Status: Complete Freq: Document 06/09/17 13:09 [facility] (Rec: 06/09/17 13:27 [facility] [id number]) Nutritional Asmnt/Malnutrition Patient General Information Nutritional Screening High Risk Screening Diagnosis Sepsis, UTI, right and left lower lobe infiltrate, pneumonia Pertinent Medical Hx/Surgical Hx Alcohol problem, liver disease , cirrhosis of the liver, hepatic comas, seizures, trachestomy, PEG, asthma, COPD Subjective Information Pt is a 52-year-old male from [facility] admitted with chief complaint of shortness of breath and falling oxygen saturation. Pt has tracheostomy to ventilator. Pt was unable to provide nutritional hx. Pt appears well nourished with no signs of muscle or fat depletion. Order to resume tube feeding; bag of Novosource Renal at bedside not yet started. Abdomen Ultrasound 06/09 notes some abdominal ascites. Current Diet Order/ Nutrition Support Novosource Renal at 55 ml/hr = 2640kcals, 120gm protein, 946ml free water Patient / S.O Can't verbalize diet edu Pertinent Medications Oscal with Vitamin D, Cefepime , D5w, Iron, Folate, Culturelle, MagOxide, Mephyton , KCl Elixir, Vitamin B6, Vitamin B1, Depakene, Vancomycin Pertinent Labs (06/09) Na 148H (improving), K 3L, Alkaline Phosphatase 171H, Ammonia 64H, Albumin 3.3L Nutritional Hx/Data Height 1.68 m Height (Calculated Centimeters) 167.6 Current Weight (lbs) 76.657 kg Weight (Calculated Kilograms) 76.7 Weight (Calculated Grams) 14448.1 Usual body Weight (lbs) 168 % Usual Body Weight 100 [place] Body Weight 142 % [place] Body Weight 119 Recent Weight Change No Weight Status Overweight GI Symptoms GI Symptoms Diarrhea Difficult in: Chewing Swallowing Food Allergies No Usual diet at home Nepro 1.8 (237 ml) QID 0900, 1300, 1700, 2100, sugar free ProStat 30 ml Skin Integrity/Comment: Vitor 12. Skin intact. Estimated Nutritional Goals BEE in Kcals: Using Current wt Calories/Kcals/Kg Based on current wt 76.8 kg with consideration of sepsis: Kcals Calculated 8727-9820 kcals/day (27-32 kcals/kg) to prevent wt gain with overwt status Protein: Using Current wt Protein g/kg: Based on current wt 76.8 kg with consideration of sepsis: Protein Calculated 92-115 gm/day (1.2-1.5 gm/kg) Fluid: ml Per MD/DO due to abnormal electrolytes Nutritional Problem 1. Problem Problem Excessive intake from enteral nutrition related to Etiology increased energy intake from calorically dense tube feeding formula as evidenced by Signs/Symptoms: current tube feeding meets 104 % of higher end of estimated calories needs. Malnutrition Alert Protein-Calorie Malnutrition N/A Is there a minimum of two criteria No selected? Query Text:Check all the applicable criteria. A minimum of two criteria are recommended for diagnosis of either severe or non-severe malnutrition. Malnutrition Related to Morbid Obesity Malnutrition related to morbid obesity No Intervention/Recommendation Recommendations by RD Decrease Calorie Intake Comments 1. Recommend decrease tube feeding Novosource Renal at goal rate of 50 ml/hr to provide 2400 kcals, 109 gm protein, and 860 ml free water per day. Monitor renal labs to prioritize protein needs. Expected Outcomes/Goals Expected Outcomes/Goals Provide pt with 100% of estimated nutritional needs. Physician Parameters for PEM Serum Albumin (g/dl) 3.1 - 3.4 (Mild)
[2017-06-25] MEDS ORDERED: Diatrizoate Meglumine/Diatri 30 mL Sol PO ONE (15:08)
--- NOTE | 2017-06-25 17:02 | Operative Report ---
DATE OF SURGERY: 06/25/2017 PROCEDURE: G-tube change. PREOPERATIVE DIAGNOSIS: Clogged G-tube. POSTOPERATIVE DIAGNOSIS: G-tube malfunction. PROCEDURE: The patient is a 52-year-old male who is currently in the ICU with a tracheostomy and PEG tube given, prolonged recovery from pneumonia. G-tube was inserted roughly last week, but now that G-tube is clogged and no longer can administer feeds or medications. He is here for G-tube change. DESCRIPTION OF PROCEDURE: The old G-tube was identified within the gastrocutaneous fistula in the left abdomen. The area was clean, dry and intact. No sign of an infection. The internal balloon was then deflated and 15 mL of fluid was removed from this balloon. In a sterile fashion, the previous PEG tube was then removed. Immediately thereafter, a new 22-Malay tube was inserted into the gastrocutaneous fistula. The previous old G-tube was an 18-Malay. The internal balloon was then blown up with 15 mL of normal saline and the external bumper was secured 1 cm from the skin. Hopefully, this larger size tube will not clog as fast. RECOMMENDATIONS: After the G-tube is confirmed to be in the stomach with Gastrografin x-ray, it can be used immediately for medication and feeds. Thank you for allowing me to participate in care of this patient. Please call with any further questions. JOB# [id number]
[2017-06-25] MEDS: Atorvastatin Calcium 10 MG TAB GT SCH (20:57)
[2017-06-26] MEDS: Lactulose 10 Gm/15 mL 30mL UDC GT SCH ×5 (00:11→23:56)
[2017-06-26] MEDS: Albuterol/Ipratropium Neb 3 ML AERS HHN SCH ×6 (02:40→22:39)
[2017-06-26] MEDS: Dextrose 5% 1,000 ML IV SCH (03:25)
[2017-06-26 05:16] LABS: HEMATOCRIT 24.2 % (39.0-49.0); HEMOGLOBIN 8.2 gm/dL (13.2-17.3); MEAN CELL VOLUME 93.5 fl (80-99); MEAN CORPUSCULAR HEMOGLOBIN 31.8 pg (26.0-30.0); MEAN PLATELET VOLUME 10.3 fl; RED BLOOD COUNT 2.59 Mil/cmm (4.30-5.70); RED CELL DISTRIBUTION WIDTH 14.4 % (11.5-20.0)
[2017-06-26] MEDS: Levetiracetam 500 mg/5mL 5mL UDC GT SCH ×3 (05:17→20:39)
[2017-06-26 05:54] LABS: PLATELET COUNT 38 Th/cmm (150-400)
[2017-06-26 06:21] LABS: CHLORIDE 112 mEq/L (98-107); POTASSIUM SERUM 3.3 mEq/L (3.5-5.1); SODIUM SERUM 140 mEq/L (136-145)
[2017-06-26 06:22] LABS: ANION GAP 5.3 (7.0-16.0); BUN - UREA NITROGEN 26 mg/dL (7-25); BUN/CREATININE RATIO 43.3; CALCIUM SERUM 9.4 mg/dL (8.6-10.3); CREATININE - SERUM 0.6 mg/dL (0.7-1.3); GLUCOSE 120 mg/dL (70-105)
[2017-06-26] MEDS: Budesonide 0.5 Mg/2 mL Ud HHN SCH ×2 (07:39→19:24)
[2017-06-26] MEDS: Chlorhexidine Gluconate 0.12% 15mL Mouthwash MM SCH ×2 (07:52→19:36)
[2017-06-26 07:59] LABS: ANISOCYTOSIS 1+; BAND NEUTROPHILE 1 % (0-10); EOSINOPHIL 4 % (0-5); NEUTROPHILS 59 % (40-80); PLATELET ESTIMATE DECREASED PLATELETS (NORMAL); TOTAL CELLS COUNTED 100
[2017-06-26 08:00] LABS: PLATELET MORPHOLOGY PLATELET CLUMPS SEEN (NORMAL)
[2017-06-26] MEDS: Potassium Chloride Elixir 20 mEq /15 mL UDC GT SCH ×3 (08:13→20:40)
[2017-06-26] MEDS: Calcium Carb/Vit D 500 mg/200 U Tab GT SCH (08:14)
[2017-06-26] MEDS: Lactobacillus Rhamnosus 10 Billion CFU Capsule PO SCH (08:15)
--- NOTE | 2017-06-26 08:36 | Diagnostic Imaging Report ---
Portable chest x-ray HISTORY: Shortness of breath Compared to prior exam of June 22, 2017, accentuation of interstitial markings the left lower lobe/left retrocardiac region. This may be related to a poor inspiration. Early infiltrate/pneumonia cannot be definitely excluded. Clinical correlation is needed. IMPRESSION: 1. Accentuation of the interstitial lung markings within the left lower lobe/left retrocardiac region. This may be related to poor inspiration. However, early infiltrate/pneumonia cannot be excluded. Clinical correlation is needed.
--- NOTE | 2017-06-26 09:25 | General Progress Note ---
Subjective - Review of Systems Events since last encounter: patient on vent no acute distress Subjective: on vent, afebrile nad Objective - Results Result Diagrams: 06/26/17 04:41 06/26/17 04:41 Recent Labs: Laboratory Last Values WBC 4.0 Th/cmm (4.8-10.8) L 06/26/17 04:41 RBC 2.59 Mil/cmm (4.30-5.70) L 06/26/17 04:41 Hgb 8.2 gm/dL (13.2-17.3) L 06/26/17 04:41 Hct 24.2 % (39.0-49.0) L 06/26/17 04:41 MCV 93.5 fl (80-99) 06/26/17 04:41 MCH 31.8 pg (26.0-30.0) H 06/26/17 04:41 MCHC Differential 34.0 pg (28.0-36.0) 06/26/17 04:41 RDW 14.4 % (11.5-20.0) 06/26/17 04:41 Plt Count 38 Th/cmm (150-400) L D 06/26/17 04:41 MPV 10.3 fl 06/26/17 04:41 Neutrophils % 59.2 % (40.0-80.0) 06/23/17 04:41 Band Neutrophils % 1 % (0-10) 06/26/17 04:41 Lymphocytes % 24.9 % (20.0-50.0) 06/23/17 04:41 Monocytes % 12.4 % (2.0-10.0) H 06/23/17 04:41 Eosinophils % 3.3 % (0.0-5.0) 06/23/17 04:41 Basophils % 0.2 % (0.0-2.0) 06/23/17 04:41 Neutrophils (Manual) 59 % (40-80) 06/26/17 04:41 Lymphocytes 28 % (20-50) 06/26/17 04:41 Monocytes 8 % (2-10) 06/26/17 04:41 Eosinophils 4 % (0-5) 06/26/17 04:41 Basophils 2 % (0-3) 06/24/17 04:50 Metamyelocytes 2 % (0-0) H 06/13/17 07:20 Myelocytes 1 % 06/13/17 07:20 Nucleated RBCs 1.0 % (0-0) H 06/08/17 04:59 Platelet Estimate DECREASED PLATELETS (NORMAL) 06/26/17 04:41 Platelet Morphology PLATELET CLUMPS SEEN (NORMAL) 06/26/17 04:41 Polychromasia 1+ 06/18/17 04:59 Anisocytosis 1+ 06/26/17 04:41 RBC Morph Micro Appear ABNORMAL (NORMAL) 06/26/17 04:41 Specimen Source ARTERIAL 06/10/17 08:43 Sample Site Left Radial 06/10/17 08:43 pH 7.46 (7.35-7.45) H 06/10/17 08:43 pCO2 36.0 mmHg (35.0-45.0) 06/10/17 08:43 pO2 92.0 mmHg (80.0-100.0) 06/10/17 08:43 HCO3 26.4 mEq/L (20.0-26.0) H 06/10/17 08:43 Base Excess 1.9 mEq/L (-3.0-3.0) 06/10/17 08:43 O2 Saturation 98.0 % (92.0-100.0) 06/10/17 08:43 Jose L Test POSITIVE 06/10/17 08:43 Vent Rate 12 06/10/17 08:43 Inspired O2 40 06/10/17 08:43 Tidal Volume 500 06/10/17 08:43 PEEP 5 06/10/17 08:43 Pressure (ins/psv/peep) N/A 06/10/17 08:43 Critical Value SAURABH 06/10/17 08:43 Sodium 140 mEq/L (136-145) 06/26/17 04:41 Potassium 3.3 mEq/L (3.5-5.1) L 06/26/17 04:41 Chloride 112 mEq/L (98-107) H 06/26/17 04:41 Carbon Dioxide 26.0 mEq/L (21.0-31.0) 06/26/17 04:41 Anion Gap 5.3 (7.0-16.0) L 06/26/17 04:41 BUN 26 mg/dL (7-25) H 06/26/17 04:41 Creatinine 0.6 mg/dL (0.7-1.3) L 06/26/17 04:41 Est GFR ( Amer) > 60.0 ml/min (>90) 06/26/17 04:41 Est GFR (Non-Af Amer) > 60.0 ml/min 06/26/17 04:41 BUN/Creatinine Ratio 43.3 06/26/17 04:41 Glucose 120 mg/dL (70-105) H 06/26/17 04:41 Plasma/Ser Osmolality 313 mOsmol/kg (275-295) H 06/09/17 05:07 Whole Bld Lactic Acid 1.51 mmol/L (0.60-1.99) 06/08/17 04:59 Calcium 9.4 mg/dL (8.6-10.3) 06/26/17 04:41 Phosphorus 2.7 mg/dL (2.5-5.0) 06/08/17 04:59 Magnesium 1.6 mg/dL (1.9-2.7) L 06/14/17 05:00 Iron 71 ug/dL (38-169) 06/08/17 04:59 TIBC 173 ug/dL (250-450) L 06/08/17 04:59 Iron Saturation 41 % (15-55) 06/08/17 04:59 Unsaturated IBC 102 ug/dL (111-343) L 06/08/17 04:59 Ferritin 303 ng/mL (30-400) 06/08/17 04:59 Total Bilirubin 0.9 mg/dL (0.3-1.0) 06/24/17 04:50 Direct Bilirubin 0.29 mg/dL (0.0-0.2) H 06/16/17 04:40 AST 36 U/L (13-39) 06/24/17 04:50 ALT 17 U/L (7-52) 06/24/17 04:50 Alkaline Phosphatase 170 U/L (34-104) H 06/24/17 04:50 Ammonia 74 umol/L (16-53) H 06/24/17 04:50 Troponin I 0.01 ng/mL (0.01-0.05) 06/07/17 13:28 B-Natriuretic Peptide 91.8 pg/mL (5.0-100.0) 06/07/17 13:28 Total Protein 7.9 gm/dL (6.0-8.3) 06/24/17 04:50 Albumin 2.6 gm/dL (4.2-5.5) L 06/24/17 04:50 Globulin 5.3 gm/dL 06/24/17 04:50 Albumin/Globulin Ratio 0.5 (1.0-1.8) L 06/24/17 04:50 Vitamin B12 >1999 pg/mL (211-946) H 06/08/17 04:59 Folic Acid >20.0 ng/mL (>3.0) 06/08/17 04:59 Urine Source RANDOM 06/07/17 13:25 Urine Color NISA 06/07/17 13:25 Urine Clarity CLOUDY (CLEAR) 06/07/17 13:25 Urine pH 5.5 (4.6 - 8.0) 06/07/17 13:25 Ur Specific [place] 1.020 (1.005-1.030) 06/07/17 13:25 Urine Protein >=300 mg/dL (NEGATIVE) 06/07/17 13:25 Urine Glucose (UA) NEGATIVE mg/dL (NEGATIVE) 06/07/17 13:25 Urine Ketones 15 mg/dL (NEGATIVE) H 06/07/17 13:25 Urine Blood LARGE (NEGATIVE) H 06/07/17 13:25 Urine Nitrate POSITIVE (NEGATIVE) H 06/07/17 13:25 Urine Bilirubin MODERATE (NEGATIVE) H 06/07/17 13:25 Urine Urobilinogen 2.0 E.U./dL (0.2 - 1.0) 06/07/17 13:25 Ur Leukocyte Esterase MODERATE (NEGATIVE) H 06/07/17 13:25 Urine RBC >100 /hpf (0-5) H 06/07/17 13:25 Urine WBC 2-5 /hpf (0-5) H 06/07/17 13:25 Ur Epithelial Cells OCCASIONAL /lpf (FEW) 06/07/17 13:25 Urine Bacteria FEW /hpf (NONE SEEN) 06/07/17 13:25 Urine Osmolality 776 mOsmol/kg 06/09/17 05:53 Ur Random Sodium 119 mmol/L 06/08/17 18:16 Stool Occult Blood NEGATIVE (NEGATIVE) 06/22/17 07:15 Vancomycin Trough 22.8 ug/mL (10-20) H 06/24/17 09:08 Blood Type O POSITIVE 06/09/17 09:30 Antibody Screen NEGATIVE 06/09/17 09:30 - Physical Exam Vitals and I&O: Vital Signs Temp 98.8 F 06/26/17 08:00 Pulse 74 06/26/17 09:00 Resp 16 06/26/17 09:00 BP 107/68 06/26/17 09:00 Pulse Ox 98 06/26/17 09:00 Intake & Output 06/25/17 06/26/17 06/26/17 18:59 06:59 18:59 Intake Total 1400 1840 Output Total 400 600 Balance 1000 1240 Weight (lbs) 83.552 kg 80.104 kg Intake: Intake, IV Amount 1000 1000 Dextrose 5% 1,000 ml @ 75 1000 1000 mls/hr IV .[id number] [facility] Rx#:[id number] Tube Feeding 100 600 Other 300 240 Output: Urine 400 300 Stool 300 Other: # Bowel Movements 2 Stool Characteristics Liquid Liquid Active Medications: Current Medications Albuterol/Ipratropium (Duoneb Neb) 3 ml HHN Q4HRT [facility] Stop: 08/07/17 18:59 Last Admin: 06/26/17 07:39 Dose: 3 ml Amlodipine Besylate (Norvasc) 5 mg GT Q12HR [place] Stop: 08/06/17 20:59 Last Admin: 06/26/17 08:21 Dose: Not Given Artificial Tears (Artificial Tears Ophth Soln) 2 drop EACH EYE Q6H PRN PRN Reason: eye dryness Stop: 08/06/17 20:54 Last Admin: 06/16/17 09:32 Dose: 2 drop Atorvastatin Calcium (Lipitor) 10 mg GT HS [place] PRN Reason: Protocol Stop: 08/06/17 20:59 Last Admin: 06/25/17 20:57 Dose: 10 mg Bisacodyl (Dulcolax 10 Mg Supp) 10 mg RC DAILY PRN PRN Reason: Constipation Stop: 08/06/17 19:17 Budesonide (Pulmicort) 0.5 mg HHN BIDRT [place] Stop: 08/07/17 18:59 Last Admin: 06/26/17 07:39 Dose: 0.5 mg Calcium/Vitamin D (Oscal W/Vitamin D) 1 tab GT DAILY [facility] Stop: 08/07/17 08:59 Last Admin: 06/26/17 08:14 Dose: 1 tab Chlorhexidine Gluconate (Peridex) 15 ml MM 08,1999 [place] Stop: 08/08/17 19:59 Last Admin: 06/26/17 07:52 Dose: 15 ml Clonazepam (Klonopin) 2 mg GT DAILY [place] PRN Reason: Protocol Stop: 08/20/17 13:44 Last Admin: 06/26/17 08:14 Dose: 2 mg Colistimethate Sodium (Colistin) 75 mg HHN BIDRT [place] Stop: 08/24/17 18:59 Folic Acid (Folate) 2.5 mg GT DAILY [place] Stop: 08/07/17 08:59 Last Admin: 06/26/17 08:13 Dose: 2.5 mg Hydralazine HCl (Apresoline) 50 mg GT Q8HR [place] Stop: 08/06/17 20:59 Last Admin: 06/26/17 05:19 Dose: Not Given Dextrose (D5w) 1,000 mls @ 75 mls/hr IV .[id number] [place] Stop: 08/22/17 13:22 Last Admin: 06/26/17 03:25 Dose: 75 mls/hr Lactobacillus Rhamnosus (Culturelle) 1 each PO DAILY [place] Stop: 08/08/17 08:59 Last Admin: 06/26/17 08:15 Dose: 1 each Lactulose (Cephulac) 30 gm GT Q6HR [place] Stop: 08/08/17 17:59 Last Admin: 06/26/17 05:20 Dose: 30 gm Levetiracetam (Keppra) 1,000 mg GT Q8HR [place] Stop: 08/06/17 20:59 Last Admin: 06/26/17 05:17 Dose: 1,000 mg Lorazepam (Ativan) 1 mg IVP Q6H PRN; Protocol PRN Reason: Agitation Stop: 08/13/17 23:17 Last Admin: 06/24/17 10:55 Dose: 1 mg Magnesium Hydroxide (Milk Of Magnesia) 30 ml GT HS PRN PRN Reason: Constipation Stop: 08/06/17 19:17 Magnesium Oxide (Mag-Oxide) 400 mg GT DAILY [place] Stop: 08/07/17 08:59 Last Admin: 06/26/17 08:14 Dose: 400 mg Metoprolol Tartrate (Lopressor) 100 mg GT Q12HR [facility] Stop: 08/06/17 20:59 Last Admin: 06/26/17 08:22 Dose: Not Given Miscellaneous (Probiotic Screen) 1 ea MC PRN PRN PRN Reason: PROTOCOL Stop: 08/07/17 10:42 Phytonadione (Mephyton) 10 mg GT DAILY [facility] Stop: 08/07/17 19:59 Last Admin: 06/26/17 08:13 Dose: 10 mg Potassium Chloride (Potassium Chloride Elixir) 20 meq GT TID [facility] Stop: 08/12/17 13:59 Last Admin: 06/26/17 08:13 Dose: 20 meq Propranolol HCl (Inderal) 20 mg GT TID [facility] Stop: 08/06/17 20:59 Last Admin: 06/26/17 08:22 Dose: Not Given Pyridoxine HCl (Vitamin B6) 100 mg GT DAILY [facility] Stop: 08/07/17 08:59 Last Admin: 06/26/17 08:15 Dose: 100 mg Sodium Phosphate (Fleet Enema) 135 ml RC Q48H PRN PRN Reason: IF DULCOLAX IS INEFFECTIVE Stop: 08/06/17 19:17 Temazepam (Restoril) 15 mg GT HS PRN; Protocol PRN Reason: Insomnia Stop: 08/19/17 19:18 Last Admin: 06/21/17 20:08 Dose: 15 mg Thiamine HCl (Vitamin B1) 100 mg GT DAILY [facility] Stop: 08/07/17 08:59 Last Admin: 06/26/17 08:15 Dose: 100 mg Valproate Sodium (Depakene) 500 mg GT TID [facility] PRN Reason: Protocol Stop: 08/06/17 20:59 Last Admin: 06/26/17 08:14 Dose: 500 mg General: Alert, No acute distress HEENT: Atraumatic, PERRLA, EOMI, Mucous membr. moist/pink, Other (tracheostomy) Neck: Supple, +2 carotid pulse wo bruit, Other (tracheostomy) Cardiovascular: Regular rate, Normal S1, Normal S2 Lungs: Clear to auscultation, Other (tracheostomy) Abdomen: Bowel sounds, Soft, Distended, Other (gastric tube and rectal tube) Extremities: no Edema Neurological: Sensation intact Skin: no Rash Psych/Mental Status: Mood NL - Procedures Procedures: Procedures Procedure Code Date RESPIRATORY VENTILATION, GREATER THAN 96 CONSECUTIVE HOURS [id number] 06/07/17 Assessment/Plan - Problem List Patient Problems: All Active Problems ELEVATED NA+, AND BUN LEVELS (Acute) Status post tracheostomy (Acute) Z93.0 Status post tracheostomy (Acute) Z93.0 - Assessment Assessment: s/p respiratory failure pnumonia s/p trch and peg trmors h/o alcoholism h/o sizures - Plan Plan: iv antibiotics vent support continue current plan of care am labs Nutritional Asmnt/Malnutr-PDOC - Dietary Evaluation Malnutrition Findings (Please click <Entered> for more info): Nutritional Asmnt/Malnutrition Start: 06/09/17 11: 00 Text: Status: Complete Freq: Document 06/09/17 13:09 [facility] (Rec: 06/09/17 13:27 [facility] [id number]) Nutritional Asmnt/Malnutrition Patient General Information Nutritional Screening High Risk Screening Diagnosis Sepsis, UTI, right and left lower lobe infiltrate, pneumonia Pertinent Medical Hx/Surgical Hx Alcohol problem, liver disease , cirrhosis of the liver, hepatic comas, seizures, trachestomy, PEG, asthma, COPD Subjective Information Pt is a 52-year-old male from [facility] admitted with chief complaint of shortness of breath and falling oxygen saturation. Pt has tracheostomy to ventilator. Pt was unable to provide nutritional hx. Pt appears well nourished with no signs of muscle or fat depletion. Order to resume tube feeding; bag of Novosource Renal at bedside not yet started. Abdomen Ultrasound 06/09 notes some abdominal ascites. Current Diet Order/ Nutrition Support Novosource Renal at 55 ml/hr = 2640kcals, 120gm protein, 946ml free water Patient / S.O Can't verbalize diet edu Pertinent Medications Oscal with Vitamin D, Cefepime , D5w, Iron, Folate, Culturelle, MagOxide, Mephyton , KCl Elixir, Vitamin B6, Vitamin B1, Depakene, Vancomycin Pertinent Labs (06/09) Na 148H (improving), K 3L, Alkaline Phosphatase 171H, Ammonia 64H, Albumin 3.3L Nutritional Hx/Data Height 1.68 m Height (Calculated Centimeters) 167.6 Current Weight (lbs) 76.657 kg Weight (Calculated Kilograms) 76.7 Weight (Calculated Grams) 85149.1 Usual body Weight (lbs) 168 % Usual Body Weight 100 [place] Body Weight 142 % [place] Body Weight 119 Recent Weight Change No Weight Status Overweight GI Symptoms GI Symptoms Diarrhea Difficult in: Chewing Swallowing Food Allergies No Usual diet at home Nepro 1.8 (237 ml) QID 0900, 1300, 1700, 2100, sugar free ProStat 30 ml Skin Integrity/Comment: Vitor 12. Skin intact. Estimated Nutritional Goals BEE in Kcals: Using Current wt Calories/Kcals/Kg Based on current wt 76.8 kg with consideration of sepsis: Kcals Calculated 6808-4720 kcals/day (27-32 kcals/kg) to prevent wt gain with overwt status Protein: Using Current wt Protein g/kg: Based on current wt 76.8 kg with consideration of sepsis: Protein Calculated 92-115 gm/day (1.2-1.5 gm/kg) Fluid: ml Per MD/DO due to abnormal electrolytes Nutritional Problem 1. Problem Problem Excessive intake from enteral nutrition related to Etiology increased energy intake from calorically dense tube feeding formula as evidenced by Signs/Symptoms: current tube feeding meets 104 % of higher end of estimated calories needs. Malnutrition Alert Protein-Calorie Malnutrition N/A Is there a minimum of two criteria No selected? Query Text:Check all the applicable criteria. A minimum of two criteria are recommended for diagnosis of either severe or non-severe malnutrition. Malnutrition Related to Morbid Obesity Malnutrition related to morbid obesity No Intervention/Recommendation Recommendations by RD Decrease Calorie Intake Comments 1. Recommend decrease tube feeding Novosource Renal at goal rate of 50 ml/hr to provide 2400 kcals, 109 gm protein, and 860 ml free water per day. Monitor renal labs to prioritize protein needs. Expected Outcomes/Goals Expected Outcomes/Goals Provide pt with 100% of estimated nutritional needs. Physician Parameters for PEM Serum Albumin (g/dl) 3.1 - 3.4 (Mild)
--- NOTE | 2017-06-26 11:19 | General Progress Note ---
Subjective - Review of Systems Service Date: 06/26/17 Events since last encounter: awake non communicative Subjective: awake, non communicative Objective - Results Result Diagrams: 06/26/17 04:41 06/26/17 04:41 Recent Labs: Laboratory Last Values WBC 4.0 Th/cmm (4.8-10.8) L 06/26/17 04:41 RBC 2.59 Mil/cmm (4.30-5.70) L 06/26/17 04:41 Hgb 8.2 gm/dL (13.2-17.3) L 06/26/17 04:41 Hct 24.2 % (39.0-49.0) L 06/26/17 04:41 MCV 93.5 fl (80-99) 06/26/17 04:41 MCH 31.8 pg (26.0-30.0) H 06/26/17 04:41 MCHC Differential 34.0 pg (28.0-36.0) 06/26/17 04:41 RDW 14.4 % (11.5-20.0) 06/26/17 04:41 Plt Count 38 Th/cmm (150-400) L D 06/26/17 04:41 MPV 10.3 fl 06/26/17 04:41 Neutrophils % 59.2 % (40.0-80.0) 06/23/17 04:41 Band Neutrophils % 1 % (0-10) 06/26/17 04:41 Lymphocytes % 24.9 % (20.0-50.0) 06/23/17 04:41 Monocytes % 12.4 % (2.0-10.0) H 06/23/17 04:41 Eosinophils % 3.3 % (0.0-5.0) 06/23/17 04:41 Basophils % 0.2 % (0.0-2.0) 06/23/17 04:41 Neutrophils (Manual) 59 % (40-80) 06/26/17 04:41 Lymphocytes 28 % (20-50) 06/26/17 04:41 Monocytes 8 % (2-10) 06/26/17 04:41 Eosinophils 4 % (0-5) 06/26/17 04:41 Basophils 2 % (0-3) 06/24/17 04:50 Metamyelocytes 2 % (0-0) H 06/13/17 07:20 Myelocytes 1 % 06/13/17 07:20 Nucleated RBCs 1.0 % (0-0) H 06/08/17 04:59 Platelet Estimate DECREASED PLATELETS (NORMAL) 06/26/17 04:41 Platelet Morphology PLATELET CLUMPS SEEN (NORMAL) 06/26/17 04:41 Polychromasia 1+ 06/18/17 04:59 Anisocytosis 1+ 06/26/17 04:41 RBC Morph Micro Appear ABNORMAL (NORMAL) 06/26/17 04:41 Specimen Source ARTERIAL 06/10/17 08:43 Sample Site Left Radial 06/10/17 08:43 pH 7.46 (7.35-7.45) H 06/10/17 08:43 pCO2 36.0 mmHg (35.0-45.0) 06/10/17 08:43 pO2 92.0 mmHg (80.0-100.0) 06/10/17 08:43 HCO3 26.4 mEq/L (20.0-26.0) H 06/10/17 08:43 Base Excess 1.9 mEq/L (-3.0-3.0) 06/10/17 08:43 O2 Saturation 98.0 % (92.0-100.0) 06/10/17 08:43 Jose L Test POSITIVE 06/10/17 08:43 Vent Rate 12 06/10/17 08:43 Inspired O2 40 06/10/17 08:43 Tidal Volume 500 06/10/17 08:43 PEEP 5 06/10/17 08:43 Pressure (ins/psv/peep) N/A 06/10/17 08:43 Critical Value SAURABH 06/10/17 08:43 Sodium 140 mEq/L (136-145) 06/26/17 04:41 Potassium 3.3 mEq/L (3.5-5.1) L 06/26/17 04:41 Chloride 112 mEq/L (98-107) H 06/26/17 04:41 Carbon Dioxide 26.0 mEq/L (21.0-31.0) 06/26/17 04:41 Anion Gap 5.3 (7.0-16.0) L 06/26/17 04:41 BUN 26 mg/dL (7-25) H 06/26/17 04:41 Creatinine 0.6 mg/dL (0.7-1.3) L 06/26/17 04:41 Est GFR ( Amer) > 60.0 ml/min (>90) 06/26/17 04:41 Est GFR (Non-Af Amer) > 60.0 ml/min 06/26/17 04:41 BUN/Creatinine Ratio 43.3 06/26/17 04:41 Glucose 120 mg/dL (70-105) H 06/26/17 04:41 Plasma/Ser Osmolality 313 mOsmol/kg (275-295) H 06/09/17 05:07 Whole Bld Lactic Acid 1.51 mmol/L (0.60-1.99) 06/08/17 04:59 Calcium 9.4 mg/dL (8.6-10.3) 06/26/17 04:41 Phosphorus 2.7 mg/dL (2.5-5.0) 06/08/17 04:59 Magnesium 1.6 mg/dL (1.9-2.7) L 06/14/17 05:00 Iron 71 ug/dL (38-169) 06/08/17 04:59 TIBC 173 ug/dL (250-450) L 06/08/17 04:59 Iron Saturation 41 % (15-55) 06/08/17 04:59 Unsaturated IBC 102 ug/dL (111-343) L 06/08/17 04:59 Ferritin 303 ng/mL (30-400) 06/08/17 04:59 Total Bilirubin 0.9 mg/dL (0.3-1.0) 06/24/17 04:50 Direct Bilirubin 0.29 mg/dL (0.0-0.2) H 06/16/17 04:40 AST 36 U/L (13-39) 06/24/17 04:50 ALT 17 U/L (7-52) 06/24/17 04:50 Alkaline Phosphatase 170 U/L (34-104) H 06/24/17 04:50 Ammonia 74 umol/L (16-53) H 06/24/17 04:50 Troponin I 0.01 ng/mL (0.01-0.05) 06/07/17 13:28 B-Natriuretic Peptide 91.8 pg/mL (5.0-100.0) 06/07/17 13:28 Total Protein 7.9 gm/dL (6.0-8.3) 06/24/17 04:50 Albumin 2.6 gm/dL (4.2-5.5) L 06/24/17 04:50 Globulin 5.3 gm/dL 06/24/17 04:50 Albumin/Globulin Ratio 0.5 (1.0-1.8) L 06/24/17 04:50 Vitamin B12 >1999 pg/mL (211-946) H 06/08/17 04:59 Folic Acid >20.0 ng/mL (>3.0) 06/08/17 04:59 Urine Source RANDOM 06/07/17 13:25 Urine Color NISA 06/07/17 13:25 Urine Clarity CLOUDY (CLEAR) 06/07/17 13:25 Urine pH 5.5 (4.6 - 8.0) 06/07/17 13:25 Ur Specific [place] 1.020 (1.005-1.030) 06/07/17 13:25 Urine Protein >=300 mg/dL (NEGATIVE) 06/07/17 13:25 Urine Glucose (UA) NEGATIVE mg/dL (NEGATIVE) 06/07/17 13:25 Urine Ketones 15 mg/dL (NEGATIVE) H 06/07/17 13:25 Urine Blood LARGE (NEGATIVE) H 06/07/17 13:25 Urine Nitrate POSITIVE (NEGATIVE) H 06/07/17 13:25 Urine Bilirubin MODERATE (NEGATIVE) H 06/07/17 13:25 Urine Urobilinogen 2.0 E.U./dL (0.2 - 1.0) 06/07/17 13:25 Ur Leukocyte Esterase MODERATE (NEGATIVE) H 06/07/17 13:25 Urine RBC >100 /hpf (0-5) H 06/07/17 13:25 Urine WBC 2-5 /hpf (0-5) H 06/07/17 13:25 Ur Epithelial Cells OCCASIONAL /lpf (FEW) 06/07/17 13:25 Urine Bacteria FEW /hpf (NONE SEEN) 06/07/17 13:25 Urine Osmolality 776 mOsmol/kg 06/09/17 05:53 Ur Random Sodium 119 mmol/L 06/08/17 18:16 Stool Occult Blood NEGATIVE (NEGATIVE) 06/22/17 07:15 Vancomycin Trough 22.8 ug/mL (10-20) H 06/24/17 09:08 Blood Type O POSITIVE 06/09/17 09:30 Antibody Screen NEGATIVE 06/09/17 09:30 - Physical Exam Vitals and I&O: Vital Signs Temp 98.8 F 06/26/17 10:00 Pulse 70 06/26/17 10:00 Resp 14 06/26/17 10:00 BP 107/56 06/26/17 10:00 Pulse Ox 97 06/26/17 10:00 Intake & Output 06/25/17 06/26/17 06/26/17 18:59 06:59 18:59 Intake Total 1400 1840 Output Total 400 600 Balance 1000 1240 Weight (lbs) 83.552 kg 80.104 kg Intake: Intake, IV Amount 1000 1000 Dextrose 5% 1,000 ml @ 75 1000 1000 mls/hr IV .[id number] [facility] Rx#:[id number] Tube Feeding 100 600 Other 300 240 Output: Urine 400 300 Stool 300 Other: # Bowel Movements 2 Stool Characteristics Liquid Liquid Liquid Active Medications: Current Medications Albuterol/Ipratropium (Duoneb Neb) 3 ml HHN Q4HRT [place] Stop: 08/07/17 18:59 Last Admin: 06/26/17 07:39 Dose: 3 ml Amlodipine Besylate (Norvasc) 5 mg GT Q12HR [place] Stop: 08/06/17 20:59 Last Admin: 06/26/17 08:21 Dose: Not Given Artificial Tears (Artificial Tears Ophth Soln) 2 drop EACH EYE Q6H PRN PRN Reason: eye dryness Stop: 08/06/17 20:54 Last Admin: 06/16/17 09:32 Dose: 2 drop Atorvastatin Calcium (Lipitor) 10 mg GT HS [place] PRN Reason: Protocol Stop: 08/06/17 20:59 Last Admin: 06/25/17 20:57 Dose: 10 mg Bisacodyl (Dulcolax 10 Mg Supp) 10 mg RC DAILY PRN PRN Reason: Constipation Stop: 08/06/17 19:17 Budesonide (Pulmicort) 0.5 mg HHN BIDRT [place] Stop: 08/07/17 18:59 Last Admin: 06/26/17 07:39 Dose: 0.5 mg Calcium/Vitamin D (Oscal W/Vitamin D) 1 tab GT DAILY [place] Stop: 08/07/17 08:59 Last Admin: 06/26/17 08:14 Dose: 1 tab Chlorhexidine Gluconate (Peridex) 15 ml MM 08,1999 [place] Stop: 08/08/17 19:59 Last Admin: 06/26/17 07:52 Dose: 15 ml Clonazepam (Klonopin) 2 mg GT DAILY [place] PRN Reason: Protocol Stop: 08/20/17 13:44 Last Admin: 06/26/17 08:14 Dose: 2 mg Colistimethate Sodium (Colistin) 75 mg HHN BIDRT [place] Stop: 08/25/17 10:59 Folic Acid (Folate) 2.5 mg GT DAILY [place] Stop: 08/07/17 08:59 Last Admin: 06/26/17 08:13 Dose: 2.5 mg Hydralazine HCl (Apresoline) 50 mg GT Q8HR [place] Stop: 08/06/17 20:59 Last Admin: 06/26/17 05:19 Dose: Not Given Dextrose (D5w) 1,000 mls @ 75 mls/hr IV .[id number] [place] Stop: 08/22/17 13:22 Last Admin: 06/26/17 03:25 Dose: 75 mls/hr Lactobacillus Rhamnosus (Culturelle) 1 each PO DAILY [place] Stop: 08/08/17 08:59 Last Admin: 06/26/17 08:15 Dose: 1 each Lactulose (Cephulac) 30 gm GT Q6HR [place] Stop: 08/08/17 17:59 Last Admin: 06/26/17 05:20 Dose: 30 gm Levetiracetam (Keppra) 1,000 mg GT Q8HR [place] Stop: 08/06/17 20:59 Last Admin: 06/26/17 05:17 Dose: 1,000 mg Lorazepam (Ativan) 1 mg IVP Q6H PRN; Protocol PRN Reason: Agitation Stop: 08/13/17 23:17 Last Admin: 06/24/17 10:55 Dose: 1 mg Magnesium Hydroxide (Milk Of Magnesia) 30 ml GT HS PRN PRN Reason: Constipation Stop: 08/06/17 19:17 Magnesium Oxide (Mag-Oxide) 400 mg GT DAILY [place] Stop: 08/07/17 08:59 Last Admin: 06/26/17 08:14 Dose: 400 mg Metoprolol Tartrate (Lopressor) 100 mg GT Q12HR [facility] Stop: 08/06/17 20:59 Last Admin: 06/26/17 08:22 Dose: Not Given Miscellaneous (Probiotic Screen) 1 ea MC PRN PRN PRN Reason: PROTOCOL Stop: 08/07/17 10:42 Phytonadione (Mephyton) 10 mg GT DAILY [facility] Stop: 08/07/17 19:59 Last Admin: 06/26/17 08:13 Dose: 10 mg Potassium Chloride (Potassium Chloride Elixir) 20 meq GT TID [facility] Stop: 08/12/17 13:59 Last Admin: 06/26/17 08:13 Dose: 20 meq Propranolol HCl (Inderal) 20 mg GT TID [facility] Stop: 08/06/17 20:59 Last Admin: 06/26/17 08:22 Dose: Not Given Pyridoxine HCl (Vitamin B6) 100 mg GT DAILY [facility] Stop: 08/07/17 08:59 Last Admin: 06/26/17 08:15 Dose: 100 mg Sodium Phosphate (Fleet Enema) 135 ml RC Q48H PRN PRN Reason: IF DULCOLAX IS INEFFECTIVE Stop: 08/06/17 19:17 Temazepam (Restoril) 15 mg GT HS PRN; Protocol PRN Reason: Insomnia Stop: 08/19/17 19:18 Last Admin: 06/21/17 20:08 Dose: 15 mg Thiamine HCl (Vitamin B1) 100 mg GT DAILY [facility] Stop: 08/07/17 08:59 Last Admin: 06/26/17 08:15 Dose: 100 mg Valproate Sodium (Depakene) 500 mg GT TID [facility] PRN Reason: Protocol Stop: 08/06/17 20:59 Last Admin: 06/26/17 08:14 Dose: 500 mg General: Alert, No acute distress HEENT: Atraumatic, PERRLA, EOMI, Mucous membr. moist/pink, Other (tracheostomy) Neck: Supple, +2 carotid pulse wo bruit, Other (tracheostomy) Cardiovascular: Regular rate, Normal S1, Normal S2 Lungs: Clear to auscultation, Other (tracheostomy) Abdomen: Bowel sounds, Soft, Distended, Other (gastric tube and rectal tube) Extremities: no Edema Neurological: Sensation intact Skin: no Rash Psych/Mental Status: Mood NL - Procedures Procedures: Procedures Procedure Code Date RESPIRATORY VENTILATION, GREATER THAN 96 CONSECUTIVE HOURS [id number] 06/07/17 Assessment/Plan - Problem List Patient Problems: All Active Problems ELEVATED NA+, AND BUN LEVELS (Acute) Status post tracheostomy (Acute) Z93.0 Status post tracheostomy (Acute) Z93.0 - Assessment Assessment: * SPLENOMEGALY. * THROMBOCYTOPENIA. Fluctuating, S/P TX * RESPIRATORY FAILURE. * ANEMIA OF CHRONIC DISEASE. hgb stable * hypercalcemia, check PTH stool OB NEG no need for tx follow PTH Nutritional Asmnt/Malnutr-PDOC - Dietary Evaluation Malnutrition Findings (Please click <Entered> for more info): Nutritional Asmnt/Malnutrition Start: 06/09/17 11: 00 Text: Status: Complete Freq: Document 06/09/17 13:09 [facility] (Rec: 06/09/17 13:27 [facility] [id number]) Nutritional Asmnt/Malnutrition Patient General Information Nutritional Screening High Risk Screening Diagnosis Sepsis, UTI, right and left lower lobe infiltrate, pneumonia Pertinent Medical Hx/Surgical Hx Alcohol problem, liver disease , cirrhosis of the liver, hepatic comas, seizures, trachestomy, PEG, asthma, COPD Subjective Information Pt is a 52-year-old male from [facility] admitted with chief complaint of shortness of breath and falling oxygen saturation. Pt has tracheostomy to ventilator. Pt was unable to provide nutritional hx. Pt appears well nourished with no signs of muscle or fat depletion. Order to resume tube feeding; bag of Novosource Renal at bedside not yet started. Abdomen Ultrasound 06/09 notes some abdominal ascites. Current Diet Order/ Nutrition Support Novosource Renal at 55 ml/hr = 2640kcals, 120gm protein, 946ml free water Patient / S.O Can't verbalize diet edu Pertinent Medications Oscal with Vitamin D, Cefepime , D5w, Iron, Folate, Culturelle, MagOxide, Mephyton , KCl Elixir, Vitamin B6, Vitamin B1, Depakene, Vancomycin Pertinent Labs (06/09) Na 148H (improving), K 3L, Alkaline Phosphatase 171H, Ammonia 64H, Albumin 3.3L Nutritional Hx/Data Height 1.68 m Height (Calculated Centimeters) 167.6 Current Weight (lbs) 76.657 kg Weight (Calculated Kilograms) 76.7 Weight (Calculated Grams) 29656.1 Usual body Weight (lbs) 168 % Usual Body Weight 100 [place] Body Weight 142 % [place] Body Weight 119 Recent Weight Change No Weight Status Overweight GI Symptoms GI Symptoms Diarrhea Difficult in: Chewing Swallowing Food Allergies No Usual diet at home Nepro 1.8 (237 ml) QID 0900, 1300, 1700, 2100, sugar free ProStat 30 ml Skin Integrity/Comment: Vitor 12. Skin intact. Estimated Nutritional Goals BEE in Kcals: Using Current wt Calories/Kcals/Kg Based on current wt 76.8 kg with consideration of sepsis: Kcals Calculated 0724-6281 kcals/day (27-32 kcals/kg) to prevent wt gain with overwt status Protein: Using Current wt Protein g/kg: Based on current wt 76.8 kg with consideration of sepsis: Protein Calculated 92-115 gm/day (1.2-1.5 gm/kg) Fluid: ml Per MD/DO due to abnormal electrolytes Nutritional Problem 1. Problem Problem Excessive intake from enteral nutrition related to Etiology increased energy intake from calorically dense tube feeding formula as evidenced by Signs/Symptoms: current tube feeding meets 104 % of higher end of estimated calories needs. Malnutrition Alert Protein-Calorie Malnutrition N/A Is there a minimum of two criteria No selected? Query Text:Check all the applicable criteria. A minimum of two criteria are recommended for diagnosis of either severe or non-severe malnutrition. Malnutrition Related to Morbid Obesity Malnutrition related to morbid obesity No Intervention/Recommendation Recommendations by RD Decrease Calorie Intake Comments 1. Recommend decrease tube feeding Novosource Renal at goal rate of 50 ml/hr to provide 2400 kcals, 109 gm protein, and 860 ml free water per day. Monitor renal labs to prioritize protein needs. Expected Outcomes/Goals Expected Outcomes/Goals Provide pt with 100% of estimated nutritional needs. Physician Parameters for PEM Serum Albumin (g/dl) 3.1 - 3.4 (Mild)
--- NOTE | 2017-06-26 14:42 | Infectious Disease Prog Note ---
Infectious Disease Subjective - Review of Systems Service Date: 06/26/17 Subjective: On the vent, s/p trach, no fever. Infectious Disease Objective - Results Result Diagrams: 06/26/17 04:41 06/26/17 04:41 Recent Labs: Laboratory Last Values WBC 4.0 Th/cmm (4.8-10.8) L 06/26/17 04:41 RBC 2.59 Mil/cmm (4.30-5.70) L 06/26/17 04:41 Hgb 8.2 gm/dL (13.2-17.3) L 06/26/17 04:41 Hct 24.2 % (39.0-49.0) L 06/26/17 04:41 MCV 93.5 fl (80-99) 06/26/17 04:41 MCH 31.8 pg (26.0-30.0) H 06/26/17 04:41 MCHC Differential 34.0 pg (28.0-36.0) 06/26/17 04:41 RDW 14.4 % (11.5-20.0) 06/26/17 04:41 Plt Count 38 Th/cmm (150-400) L D 06/26/17 04:41 MPV 10.3 fl 06/26/17 04:41 Neutrophils % 59.2 % (40.0-80.0) 06/23/17 04:41 Band Neutrophils % 1 % (0-10) 06/26/17 04:41 Lymphocytes % 24.9 % (20.0-50.0) 06/23/17 04:41 Monocytes % 12.4 % (2.0-10.0) H 06/23/17 04:41 Eosinophils % 3.3 % (0.0-5.0) 06/23/17 04:41 Basophils % 0.2 % (0.0-2.0) 06/23/17 04:41 Neutrophils (Manual) 59 % (40-80) 06/26/17 04:41 Lymphocytes 28 % (20-50) 06/26/17 04:41 Monocytes 8 % (2-10) 06/26/17 04:41 Eosinophils 4 % (0-5) 06/26/17 04:41 Basophils 2 % (0-3) 06/24/17 04:50 Metamyelocytes 2 % (0-0) H 06/13/17 07:20 Myelocytes 1 % 06/13/17 07:20 Nucleated RBCs 1.0 % (0-0) H 06/08/17 04:59 Platelet Estimate DECREASED PLATELETS (NORMAL) 06/26/17 04:41 Platelet Morphology PLATELET CLUMPS SEEN (NORMAL) 06/26/17 04:41 Polychromasia 1+ 06/18/17 04:59 Anisocytosis 1+ 06/26/17 04:41 RBC Morph Micro Appear ABNORMAL (NORMAL) 06/26/17 04:41 Specimen Source ARTERIAL 06/10/17 08:43 Sample Site Left Radial 06/10/17 08:43 pH 7.46 (7.35-7.45) H 06/10/17 08:43 pCO2 36.0 mmHg (35.0-45.0) 06/10/17 08:43 pO2 92.0 mmHg (80.0-100.0) 06/10/17 08:43 HCO3 26.4 mEq/L (20.0-26.0) H 06/10/17 08:43 Base Excess 1.9 mEq/L (-3.0-3.0) 06/10/17 08:43 O2 Saturation 98.0 % (92.0-100.0) 06/10/17 08:43 Jose L Test POSITIVE 06/10/17 08:43 Vent Rate 12 06/10/17 08:43 Inspired O2 40 06/10/17 08:43 Tidal Volume 500 06/10/17 08:43 PEEP 5 06/10/17 08:43 Pressure (ins/psv/peep) N/A 06/10/17 08:43 Critical Value SAURABH 06/10/17 08:43 Sodium 140 mEq/L (136-145) 06/26/17 04:41 Potassium 3.3 mEq/L (3.5-5.1) L 06/26/17 04:41 Chloride 112 mEq/L (98-107) H 06/26/17 04:41 Carbon Dioxide 26.0 mEq/L (21.0-31.0) 06/26/17 04:41 Anion Gap 5.3 (7.0-16.0) L 06/26/17 04:41 BUN 26 mg/dL (7-25) H 06/26/17 04:41 Creatinine 0.6 mg/dL (0.7-1.3) L 06/26/17 04:41 Est GFR ( Amer) > 60.0 ml/min (>90) 06/26/17 04:41 Est GFR (Non-Af Amer) > 60.0 ml/min 06/26/17 04:41 BUN/Creatinine Ratio 43.3 06/26/17 04:41 Glucose 120 mg/dL (70-105) H 06/26/17 04:41 Plasma/Ser Osmolality 313 mOsmol/kg (275-295) H 06/09/17 05:07 Whole Bld Lactic Acid 1.51 mmol/L (0.60-1.99) 06/08/17 04:59 Calcium 9.4 mg/dL (8.6-10.3) 06/26/17 04:41 Phosphorus 2.7 mg/dL (2.5-5.0) 06/08/17 04:59 Magnesium 1.6 mg/dL (1.9-2.7) L 06/14/17 05:00 Iron 71 ug/dL (38-169) 06/08/17 04:59 TIBC 173 ug/dL (250-450) L 06/08/17 04:59 Iron Saturation 41 % (15-55) 06/08/17 04:59 Unsaturated IBC 102 ug/dL (111-343) L 06/08/17 04:59 Ferritin 303 ng/mL (30-400) 06/08/17 04:59 Total Bilirubin 0.9 mg/dL (0.3-1.0) 06/24/17 04:50 Direct Bilirubin 0.29 mg/dL (0.0-0.2) H 06/16/17 04:40 AST 36 U/L (13-39) 06/24/17 04:50 ALT 17 U/L (7-52) 06/24/17 04:50 Alkaline Phosphatase 170 U/L (34-104) H 06/24/17 04:50 Ammonia 74 umol/L (16-53) H 06/24/17 04:50 Troponin I 0.01 ng/mL (0.01-0.05) 06/07/17 13:28 B-Natriuretic Peptide 91.8 pg/mL (5.0-100.0) 06/07/17 13:28 Total Protein 7.9 gm/dL (6.0-8.3) 06/24/17 04:50 Albumin 2.6 gm/dL (4.2-5.5) L 06/24/17 04:50 Globulin 5.3 gm/dL 06/24/17 04:50 Albumin/Globulin Ratio 0.5 (1.0-1.8) L 06/24/17 04:50 Vitamin B12 >1999 pg/mL (211-946) H 06/08/17 04:59 Folic Acid >20.0 ng/mL (>3.0) 06/08/17 04:59 Urine Source RANDOM 06/07/17 13:25 Urine Color NISA 06/07/17 13:25 Urine Clarity CLOUDY (CLEAR) 06/07/17 13:25 Urine pH 5.5 (4.6 - 8.0) 06/07/17 13:25 Ur Specific [place] 1.020 (1.005-1.030) 06/07/17 13:25 Urine Protein >=300 mg/dL (NEGATIVE) 06/07/17 13:25 Urine Glucose (UA) NEGATIVE mg/dL (NEGATIVE) 06/07/17 13:25 Urine Ketones 15 mg/dL (NEGATIVE) H 06/07/17 13:25 Urine Blood LARGE (NEGATIVE) H 06/07/17 13:25 Urine Nitrate POSITIVE (NEGATIVE) H 06/07/17 13:25 Urine Bilirubin MODERATE (NEGATIVE) H 06/07/17 13:25 Urine Urobilinogen 2.0 E.U./dL (0.2 - 1.0) 06/07/17 13:25 Ur Leukocyte Esterase MODERATE (NEGATIVE) H 06/07/17 13:25 Urine RBC >100 /hpf (0-5) H 06/07/17 13:25 Urine WBC 2-5 /hpf (0-5) H 06/07/17 13:25 Ur Epithelial Cells OCCASIONAL /lpf (FEW) 06/07/17 13:25 Urine Bacteria FEW /hpf (NONE SEEN) 06/07/17 13:25 Urine Osmolality 776 mOsmol/kg 06/09/17 05:53 Ur Random Sodium 119 mmol/L 06/08/17 18:16 Stool Occult Blood NEGATIVE (NEGATIVE) 06/22/17 07:15 Vancomycin Trough 22.8 ug/mL (10-20) H 06/24/17 09:08 Blood Type O POSITIVE 06/09/17 09:30 Antibody Screen NEGATIVE 06/09/17 09:30 - Physical Exam Vitals and I&O: Vital Signs Temp 97.8 F 06/26/17 13:00 Pulse 72 06/26/17 13:00 Resp 13 06/26/17 13:00 BP 105/59 06/26/17 13:00 Pulse Ox 100 06/26/17 13:00 Intake & Output 06/25/17 06/26/17 06/26/17 18:59 06:59 18:59 Intake Total 1400 1840 Output Total 400 600 Balance 1000 1240 Weight (lbs) 83.552 kg 80.104 kg Intake: Intake, IV Amount 1000 1000 Dextrose 5% 1,000 ml @ 75 1000 1000 mls/hr IV .[id number] [facility] Rx#:[id number] Tube Feeding 100 600 Other 300 240 Output: Urine 400 300 Stool 300 Other: # Bowel Movements 2 Stool Characteristics Liquid Liquid Liquid Active Medications: Current Medications Albuterol/Ipratropium (Duoneb Neb) 3 ml HHN Q4HRT [place] Stop: 08/07/17 18:59 Last Admin: 06/26/17 11:40 Dose: 3 ml Amlodipine Besylate (Norvasc) 5 mg GT Q12HR [place] Stop: 08/06/17 20:59 Last Admin: 06/26/17 08:21 Dose: Not Given Artificial Tears (Artificial Tears Ophth Soln) 2 drop EACH EYE Q6H PRN PRN Reason: eye dryness Stop: 08/06/17 20:54 Last Admin: 06/16/17 09:32 Dose: 2 drop Atorvastatin Calcium (Lipitor) 10 mg GT HS [place] PRN Reason: Protocol Stop: 08/06/17 20:59 Last Admin: 06/25/17 20:57 Dose: 10 mg Bisacodyl (Dulcolax 10 Mg Supp) 10 mg RC DAILY PRN PRN Reason: Constipation Stop: 08/06/17 19:17 Budesonide (Pulmicort) 0.5 mg HHN BIDRT [place] Stop: 08/07/17 18:59 Last Admin: 06/26/17 07:39 Dose: 0.5 mg Calcium/Vitamin D (Oscal W/Vitamin D) 1 tab GT DAILY [place] Stop: 08/07/17 08:59 Last Admin: 06/26/17 08:14 Dose: 1 tab Chlorhexidine Gluconate (Peridex) 15 ml MM 08,1999 [place] Stop: 08/08/17 19:59 Last Admin: 06/26/17 07:52 Dose: 15 ml Clonazepam (Klonopin) 2 mg GT DAILY [place] PRN Reason: Protocol Stop: 08/20/17 13:44 Last Admin: 06/26/17 08:14 Dose: 2 mg Colistimethate Sodium (Colistin) 75 mg HHN BIDRT [place] Stop: 08/25/17 10:59 Folic Acid (Folate) 2.5 mg GT DAILY [place] Stop: 08/07/17 08:59 Last Admin: 06/26/17 08:13 Dose: 2.5 mg Hydralazine HCl (Apresoline) 50 mg GT Q8HR [place] Stop: 08/06/17 20:59 Last Admin: 06/26/17 12:13 Dose: Not Given Dextrose (D5w) 1,000 mls @ 75 mls/hr IV .[id number] [facility] Stop: 08/22/17 13:22 Last Admin: 06/26/17 03:25 Dose: 75 mls/hr Lactobacillus Rhamnosus (Culturelle) 1 each PO DAILY [place] Stop: 08/08/17 08:59 Last Admin: 06/26/17 08:15 Dose: 1 each Lactulose (Cephulac) 30 gm GT Q6HR [place] Stop: 08/08/17 17:59 Last Admin: 06/26/17 12:06 Dose: 30 gm Levetiracetam (Keppra) 1,000 mg GT Q8HR [place] Stop: 08/06/17 20:59 Last Admin: 06/26/17 12:06 Dose: 1,000 mg Lorazepam (Ativan) 1 mg IVP Q6H PRN; Protocol PRN Reason: Agitation Stop: 08/13/17 23:17 Last Admin: 06/24/17 10:55 Dose: 1 mg Magnesium Hydroxide (Milk Of Magnesia) 30 ml GT HS PRN PRN Reason: Constipation Stop: 08/06/17 19:17 Magnesium Oxide (Mag-Oxide) 400 mg GT DAILY [place] Stop: 08/07/17 08:59 Last Admin: 06/26/17 08:14 Dose: 400 mg Metoprolol Tartrate (Lopressor) 100 mg GT Q12HR [facility] Stop: 08/06/17 20:59 Last Admin: 06/26/17 08:22 Dose: Not Given Miscellaneous (Probiotic Screen) 1 ea MC PRN PRN PRN Reason: PROTOCOL Stop: 08/07/17 10:42 Phytonadione (Mephyton) 10 mg GT DAILY [facility] Stop: 08/07/17 19:59 Last Admin: 06/26/17 08:13 Dose: 10 mg Potassium Chloride (Potassium Chloride Elixir) 20 meq GT TID [facility] Stop: 08/12/17 13:59 Last Admin: 06/26/17 08:13 Dose: 20 meq Propranolol HCl (Inderal) 20 mg GT TID [facility] Stop: 08/06/17 20:59 Last Admin: 06/26/17 08:22 Dose: Not Given Pyridoxine HCl (Vitamin B6) 100 mg GT DAILY [facility] Stop: 08/07/17 08:59 Last Admin: 06/26/17 08:15 Dose: 100 mg Sodium Phosphate (Fleet Enema) 135 ml RC Q48H PRN PRN Reason: IF DULCOLAX IS INEFFECTIVE Stop: 08/06/17 19:17 Temazepam (Restoril) 15 mg GT HS PRN; Protocol PRN Reason: Insomnia Stop: 08/19/17 19:18 Last Admin: 06/21/17 20:08 Dose: 15 mg Thiamine HCl (Vitamin B1) 100 mg GT DAILY [facility] Stop: 08/07/17 08:59 Last Admin: 06/26/17 08:15 Dose: 100 mg Valproate Sodium (Depakene) 500 mg GT TID [place] PRN Reason: Protocol Stop: 08/06/17 20:59 Last Admin: 06/26/17 08:14 Dose: 500 mg General: no acute distress, well developed, well nourished HEENT: atraumatic, normocephalic Neck: supple, tracheostomy Cardiovascular: S1S2, regular Lungs: clear to auscultation bilaterally, clear to percussion Abdomen: soft, no tender Extremities: no cyanosis, no clubbing, no edema Skin: intact - Procedures Procedures: Procedures Procedure Code Date RESPIRATORY VENTILATION, GREATER THAN 96 CONSECUTIVE HOURS [id number] 06/07/17 Infectious Disease Assmt/Plan - Problem List Patient Problems: All Active Problems ELEVATED NA+, AND BUN LEVELS (Acute) Status post tracheostomy (Acute) Z93.0 Status post tracheostomy (Acute) Z93.0 - Assessment Assessment: 1. tracheitis. pneumonia treated. 2. VDRF. 3. Acinetobacter and ESBL E coli in sputum colonization. - Plan Plan: Continue colistin neb for 7 days. patient is getting discharged to Sub acute. Nutritional Asmnt/Malnutr-PDOC - Dietary Evaluation Malnutrition Findings (Please click <Entered> for more info): Nutritional Asmnt/Malnutrition Start: 06/09/17 11: 00 Text: Status: Complete Freq: Document 06/09/17 13:09 [facility] (Rec: 06/09/17 13:27 [facility] [id number]) Nutritional Asmnt/Malnutrition Patient General Information Nutritional Screening High Risk Screening Diagnosis Sepsis, UTI, right and left lower lobe infiltrate, pneumonia Pertinent Medical Hx/Surgical Hx Alcohol problem, liver disease , cirrhosis of the liver, hepatic comas, seizures, trachestomy, PEG, asthma, COPD Subjective Information Pt is a 52-year-old male from [facility] admitted with chief complaint of shortness of breath and falling oxygen saturation. Pt has tracheostomy to ventilator. Pt was unable to provide nutritional hx. Pt appears well nourished with no signs of muscle or fat depletion. Order to resume tube feeding; bag of Novosource Renal at bedside not yet started. Abdomen Ultrasound 06/09 notes some abdominal ascites. Current Diet Order/ Nutrition Support Novosource Renal at 55 ml/hr = 2640kcals, 120gm protein, 946ml free water Patient / S.O Can't verbalize diet edu Pertinent Medications Oscal with Vitamin D, Cefepime , D5w, Iron, Folate, Culturelle, MagOxide, Mephyton , KCl Elixir, Vitamin B6, Vitamin B1, Depakene, Vancomycin Pertinent Labs (06/09) Na 148H (improving), K 3L, Alkaline Phosphatase 171H, Ammonia 64H, Albumin 3.3L Nutritional Hx/Data Height 1.68 m Height (Calculated Centimeters) 167.6 Current Weight (lbs) 76.657 kg Weight (Calculated Kilograms) 76.7 Weight (Calculated Grams) 57871.1 Usual body Weight (lbs) 168 % Usual Body Weight 100 Nerinx Body Weight 142 % Nerinx Body Weight 119 Recent Weight Change No Weight Status Overweight GI Symptoms GI Symptoms Diarrhea Difficult in: Chewing Swallowing Food Allergies No Usual diet at home Nepro 1.8 (237 ml) QID 0900, 1300, 1700, 2100, sugar free ProStat 30 ml Skin Integrity/Comment: Vitor 12. Skin intact. Estimated Nutritional Goals BEE in Kcals: Using Current wt Calories/Kcals/Kg Based on current wt 76.8 kg with consideration of sepsis: Kcals Calculated 6952-5678 kcals/day (27-32 kcals/kg) to prevent wt gain with overwt status Protein: Using Current wt Protein g/kg: Based on current wt 76.8 kg with consideration of sepsis: Protein Calculated 92-115 gm/day (1.2-1.5 gm/kg) Fluid: ml Per MD/DO due to abnormal electrolytes Nutritional Problem 1. Problem Problem Excessive intake from enteral nutrition related to Etiology increased energy intake from calorically dense tube feeding formula as evidenced by Signs/Symptoms: current tube feeding meets 104 % of higher end of estimated calories needs. Malnutrition Alert Protein-Calorie Malnutrition N/A Is there a minimum of two criteria No selected? Query Text:Check all the applicable criteria. A minimum of two criteria are recommended for diagnosis of either severe or non-severe malnutrition. Malnutrition Related to Morbid Obesity Malnutrition related to morbid obesity No Intervention/Recommendation Recommendations by RD Decrease Calorie Intake Comments 1. Recommend decrease tube feeding Novosource Renal at goal rate of 50 ml/hr to provide 2400 kcals, 109 gm protein, and 860 ml free water per day. Monitor renal labs to prioritize protein needs. Expected Outcomes/Goals Expected Outcomes/Goals Provide pt with 100% of estimated nutritional needs. Physician Parameters for PEM Serum Albumin (g/dl) 3.1 - 3.4 (Mild)
--- NOTE | 2017-06-26 14:53 | General Progress Note ---
Subjective - Review of Systems Service Date: 06/26/17 Subjective: drowsy, arousable, on vent Objective - Results Result Diagrams: 06/26/17 04:41 06/26/17 04:41 Recent Labs: Laboratory Last Values WBC 4.0 Th/cmm (4.8-10.8) L 06/26/17 04:41 RBC 2.59 Mil/cmm (4.30-5.70) L 06/26/17 04:41 Hgb 8.2 gm/dL (13.2-17.3) L 06/26/17 04:41 Hct 24.2 % (39.0-49.0) L 06/26/17 04:41 MCV 93.5 fl (80-99) 06/26/17 04:41 MCH 31.8 pg (26.0-30.0) H 06/26/17 04:41 MCHC Differential 34.0 pg (28.0-36.0) 06/26/17 04:41 RDW 14.4 % (11.5-20.0) 06/26/17 04:41 Plt Count 38 Th/cmm (150-400) L D 06/26/17 04:41 MPV 10.3 fl 06/26/17 04:41 Neutrophils % 59.2 % (40.0-80.0) 06/23/17 04:41 Band Neutrophils % 1 % (0-10) 06/26/17 04:41 Lymphocytes % 24.9 % (20.0-50.0) 06/23/17 04:41 Monocytes % 12.4 % (2.0-10.0) H 06/23/17 04:41 Eosinophils % 3.3 % (0.0-5.0) 06/23/17 04:41 Basophils % 0.2 % (0.0-2.0) 06/23/17 04:41 Neutrophils (Manual) 59 % (40-80) 06/26/17 04:41 Lymphocytes 28 % (20-50) 06/26/17 04:41 Monocytes 8 % (2-10) 06/26/17 04:41 Eosinophils 4 % (0-5) 06/26/17 04:41 Basophils 2 % (0-3) 06/24/17 04:50 Metamyelocytes 2 % (0-0) H 06/13/17 07:20 Myelocytes 1 % 06/13/17 07:20 Nucleated RBCs 1.0 % (0-0) H 06/08/17 04:59 Platelet Estimate DECREASED PLATELETS (NORMAL) 06/26/17 04:41 Platelet Morphology PLATELET CLUMPS SEEN (NORMAL) 06/26/17 04:41 Polychromasia 1+ 06/18/17 04:59 Anisocytosis 1+ 06/26/17 04:41 RBC Morph Micro Appear ABNORMAL (NORMAL) 06/26/17 04:41 Specimen Source ARTERIAL 06/10/17 08:43 Sample Site Left Radial 06/10/17 08:43 pH 7.46 (7.35-7.45) H 06/10/17 08:43 pCO2 36.0 mmHg (35.0-45.0) 06/10/17 08:43 pO2 92.0 mmHg (80.0-100.0) 06/10/17 08:43 HCO3 26.4 mEq/L (20.0-26.0) H 06/10/17 08:43 Base Excess 1.9 mEq/L (-3.0-3.0) 06/10/17 08:43 O2 Saturation 98.0 % (92.0-100.0) 06/10/17 08:43 Jose L Test POSITIVE 06/10/17 08:43 Vent Rate 12 06/10/17 08:43 Inspired O2 40 06/10/17 08:43 Tidal Volume 500 06/10/17 08:43 PEEP 5 06/10/17 08:43 Pressure (ins/psv/peep) N/A 06/10/17 08:43 Critical Value SAURABH 06/10/17 08:43 Sodium 140 mEq/L (136-145) 06/26/17 04:41 Potassium 3.3 mEq/L (3.5-5.1) L 06/26/17 04:41 Chloride 112 mEq/L (98-107) H 06/26/17 04:41 Carbon Dioxide 26.0 mEq/L (21.0-31.0) 06/26/17 04:41 Anion Gap 5.3 (7.0-16.0) L 06/26/17 04:41 BUN 26 mg/dL (7-25) H 06/26/17 04:41 Creatinine 0.6 mg/dL (0.7-1.3) L 06/26/17 04:41 Est GFR ( Amer) > 60.0 ml/min (>90) 06/26/17 04:41 Est GFR (Non-Af Amer) > 60.0 ml/min 06/26/17 04:41 BUN/Creatinine Ratio 43.3 06/26/17 04:41 Glucose 120 mg/dL (70-105) H 06/26/17 04:41 Plasma/Ser Osmolality 313 mOsmol/kg (275-295) H 06/09/17 05:07 Whole Bld Lactic Acid 1.51 mmol/L (0.60-1.99) 06/08/17 04:59 Calcium 9.4 mg/dL (8.6-10.3) 06/26/17 04:41 Phosphorus 2.7 mg/dL (2.5-5.0) 06/08/17 04:59 Magnesium 1.6 mg/dL (1.9-2.7) L 06/14/17 05:00 Iron 71 ug/dL (38-169) 06/08/17 04:59 TIBC 173 ug/dL (250-450) L 06/08/17 04:59 Iron Saturation 41 % (15-55) 06/08/17 04:59 Unsaturated IBC 102 ug/dL (111-343) L 06/08/17 04:59 Ferritin 303 ng/mL (30-400) 06/08/17 04:59 Total Bilirubin 0.9 mg/dL (0.3-1.0) 06/24/17 04:50 Direct Bilirubin 0.29 mg/dL (0.0-0.2) H 06/16/17 04:40 AST 36 U/L (13-39) 06/24/17 04:50 ALT 17 U/L (7-52) 06/24/17 04:50 Alkaline Phosphatase 170 U/L (34-104) H 06/24/17 04:50 Ammonia 74 umol/L (16-53) H 06/24/17 04:50 Troponin I 0.01 ng/mL (0.01-0.05) 06/07/17 13:28 B-Natriuretic Peptide 91.8 pg/mL (5.0-100.0) 06/07/17 13:28 Total Protein 7.9 gm/dL (6.0-8.3) 06/24/17 04:50 Albumin 2.6 gm/dL (4.2-5.5) L 06/24/17 04:50 Globulin 5.3 gm/dL 06/24/17 04:50 Albumin/Globulin Ratio 0.5 (1.0-1.8) L 06/24/17 04:50 Vitamin B12 >1999 pg/mL (211-946) H 06/08/17 04:59 Folic Acid >20.0 ng/mL (>3.0) 06/08/17 04:59 Urine Source RANDOM 06/07/17 13:25 Urine Color NISA 06/07/17 13:25 Urine Clarity CLOUDY (CLEAR) 06/07/17 13:25 Urine pH 5.5 (4.6 - 8.0) 06/07/17 13:25 Ur Specific Raymond 1.020 (1.005-1.030) 06/07/17 13:25 Urine Protein >=300 mg/dL (NEGATIVE) 06/07/17 13:25 Urine Glucose (UA) NEGATIVE mg/dL (NEGATIVE) 06/07/17 13:25 Urine Ketones 15 mg/dL (NEGATIVE) H 06/07/17 13:25 Urine Blood LARGE (NEGATIVE) H 06/07/17 13:25 Urine Nitrate POSITIVE (NEGATIVE) H 06/07/17 13:25 Urine Bilirubin MODERATE (NEGATIVE) H 06/07/17 13:25 Urine Urobilinogen 2.0 E.U./dL (0.2 - 1.0) 06/07/17 13:25 Ur Leukocyte Esterase MODERATE (NEGATIVE) H 06/07/17 13:25 Urine RBC >100 /hpf (0-5) H 06/07/17 13:25 Urine WBC 2-5 /hpf (0-5) H 06/07/17 13:25 Ur Epithelial Cells OCCASIONAL /lpf (FEW) 06/07/17 13:25 Urine Bacteria FEW /hpf (NONE SEEN) 06/07/17 13:25 Urine Osmolality 776 mOsmol/kg 06/09/17 05:53 Ur Random Sodium 119 mmol/L 06/08/17 18:16 Stool Occult Blood NEGATIVE (NEGATIVE) 06/22/17 07:15 Vancomycin Trough 22.8 ug/mL (10-20) H 06/24/17 09:08 Blood Type O POSITIVE 06/09/17 09:30 Antibody Screen NEGATIVE 06/09/17 09:30 - Physical Exam Vitals and I&O: Vital Signs Temp 97.8 F 06/26/17 13:40 Pulse 71 06/26/17 14:50 Resp 13 06/26/17 13:40 BP 103/52 06/26/17 14:50 Pulse Ox 100 06/26/17 13:40 Intake & Output 06/25/17 06/26/17 06/26/17 18:59 06:59 18:59 Intake Total 1400 1840 Output Total 400 600 Balance 1000 1240 Weight (lbs) 83.552 kg 80.104 kg Intake: Intake, IV Amount 1000 1000 Dextrose 5% 1,000 ml @ 75 1000 1000 mls/hr IV .[id number] [facility] Rx#:[id number] Tube Feeding 100 600 Other 300 240 Output: Urine 400 300 Stool 300 Other: # Bowel Movements 2 Stool Characteristics Liquid Liquid Liquid Active Medications: Current Medications Albuterol/Ipratropium (Duoneb Neb) 3 ml HHN Q4HRT [facility] Stop: 08/07/17 18:59 Last Admin: 06/26/17 11:40 Dose: 3 ml Amlodipine Besylate (Norvasc) 5 mg GT Q12HR [place] Stop: 08/06/17 20:59 Last Admin: 06/26/17 08:21 Dose: Not Given Artificial Tears (Artificial Tears Ophth Soln) 2 drop EACH EYE Q6H PRN PRN Reason: eye dryness Stop: 08/06/17 20:54 Last Admin: 06/16/17 09:32 Dose: 2 drop Atorvastatin Calcium (Lipitor) 10 mg GT HS [place] PRN Reason: Protocol Stop: 08/06/17 20:59 Last Admin: 06/25/17 20:57 Dose: 10 mg Bisacodyl (Dulcolax 10 Mg Supp) 10 mg RC DAILY PRN PRN Reason: Constipation Stop: 08/06/17 19:17 Budesonide (Pulmicort) 0.5 mg HHN BIDRT [facility] Stop: 08/07/17 18:59 Last Admin: 06/26/17 07:39 Dose: 0.5 mg Calcium/Vitamin D (Oscal W/Vitamin D) 1 tab GT DAILY [place] Stop: 08/07/17 08:59 Last Admin: 06/26/17 08:14 Dose: 1 tab Chlorhexidine Gluconate (Peridex) 15 ml MM 08,1999 [place] Stop: 08/08/17 19:59 Last Admin: 06/26/17 07:52 Dose: 15 ml Clonazepam (Klonopin) 2 mg GT DAILY [place] PRN Reason: Protocol Stop: 08/20/17 13:44 Last Admin: 06/26/17 08:14 Dose: 2 mg Colistimethate Sodium (Colistin) 75 mg HHN BIDRT [place] Stop: 08/25/17 10:59 Folic Acid (Folate) 2.5 mg GT DAILY [place] Stop: 08/07/17 08:59 Last Admin: 06/26/17 08:13 Dose: 2.5 mg Hydralazine HCl (Apresoline) 50 mg GT Q8HR [place] Stop: 08/06/17 20:59 Last Admin: 06/26/17 12:13 Dose: Not Given Dextrose (D5w) 1,000 mls @ 75 mls/hr IV .[id number] [place] Stop: 08/22/17 13:22 Last Admin: 06/26/17 03:25 Dose: 75 mls/hr Lactobacillus Rhamnosus (Culturelle) 1 each PO DAILY [place] Stop: 08/08/17 08:59 Last Admin: 06/26/17 08:15 Dose: 1 each Lactulose (Cephulac) 30 gm GT Q6HR [place] Stop: 08/08/17 17:59 Last Admin: 06/26/17 12:06 Dose: 30 gm Levetiracetam (Keppra) 1,000 mg GT Q8HR [place] Stop: 08/06/17 20:59 Last Admin: 06/26/17 12:06 Dose: 1,000 mg Lorazepam (Ativan) 1 mg IVP Q6H PRN; Protocol PRN Reason: Agitation Stop: 08/13/17 23:17 Last Admin: 06/24/17 10:55 Dose: 1 mg Magnesium Hydroxide (Milk Of Magnesia) 30 ml GT HS PRN PRN Reason: Constipation Stop: 08/06/17 19:17 Magnesium Oxide (Mag-Oxide) 400 mg GT DAILY [place] Stop: 08/07/17 08:59 Last Admin: 06/26/17 08:14 Dose: 400 mg Metoprolol Tartrate (Lopressor) 100 mg GT Q12HR [facility] Stop: 08/06/17 20:59 Last Admin: 06/26/17 08:22 Dose: Not Given Miscellaneous (Probiotic Screen) 1 ea MC PRN PRN PRN Reason: PROTOCOL Stop: 08/07/17 10:42 Phytonadione (Mephyton) 10 mg GT DAILY [facility] Stop: 08/07/17 19:59 Last Admin: 06/26/17 08:13 Dose: 10 mg Potassium Chloride (Potassium Chloride Elixir) 20 meq GT TID [facility] Stop: 08/12/17 13:59 Last Admin: 06/26/17 14:50 Dose: 20 meq Propranolol HCl (Inderal) 20 mg GT TID [facility] Stop: 08/06/17 20:59 Last Admin: 06/26/17 14:50 Dose: Not Given Pyridoxine HCl (Vitamin B6) 100 mg GT DAILY [facility] Stop: 08/07/17 08:59 Last Admin: 06/26/17 08:15 Dose: 100 mg Sodium Phosphate (Fleet Enema) 135 ml RC Q48H PRN PRN Reason: IF DULCOLAX IS INEFFECTIVE Stop: 08/06/17 19:17 Temazepam (Restoril) 15 mg GT HS PRN; Protocol PRN Reason: Insomnia Stop: 08/19/17 19:18 Last Admin: 06/21/17 20:08 Dose: 15 mg Thiamine HCl (Vitamin B1) 100 mg GT DAILY [facility] Stop: 08/07/17 08:59 Last Admin: 06/26/17 08:15 Dose: 100 mg Valproate Sodium (Depakene) 500 mg GT TID [facility] PRN Reason: Protocol Stop: 08/06/17 20:59 Last Admin: 06/26/17 14:50 Dose: 500 mg General: Alert, No acute distress HEENT: Atraumatic, PERRLA, EOMI, Mucous membr. moist/pink, Other (tracheostomy) Neck: Supple, +2 carotid pulse wo bruit, Other (tracheostomy) Cardiovascular: Regular rate, Normal S1, Normal S2 Lungs: Clear to auscultation, Other (tracheostomy) Abdomen: Bowel sounds, Soft, Distended, Other (gastric tube and rectal tube) Extremities: no Edema Neurological: Sensation intact Skin: no Rash Psych/Mental Status: Mood NL - Procedures Procedures: Procedures Procedure Code Date RESPIRATORY VENTILATION, GREATER THAN 96 CONSECUTIVE HOURS [id number] 06/07/17 Assessment/Plan - Problem List Patient Problems: All Active Problems ELEVATED NA+, AND BUN LEVELS (Acute) Status post tracheostomy (Acute) Z93.0 Status post tracheostomy (Acute) Z93.0 - Assessment Assessment: Hypernatremia RFVD Sepsis etio? CLD Thrombocytopenia Anemia of CD Hypokalemia - Plan Plan: Lab - Result Diagrams 06/09/17 09:30 06/09/17 05:07 Current Medications Albuterol/Ipratropium (Duoneb Neb) 3 ml HHN Q4HR [place] Stop: 08/06/17 19:59 Last Admin: 06/09/17 11:08 Dose: 3 ml Albuterol/Ipratropium (Duoneb Neb) 3 ml HHN Q4HRT [place] Stop: 08/07/17 18:59 Amlodipine Besylate (Norvasc) 5 mg GT Q12HR [place] Stop: 08/06/17 20:59 Last Admin: 06/09/17 10:05 Dose: 5 mg Artificial Tears (Artificial Tears Ophth Soln) 2 drop EACH EYE Q6H PRN PRN Reason: eye dryness Stop: 08/06/17 20:54 Atorvastatin Calcium (Lipitor) 10 mg GT HS [place] PRN Reason: Protocol Stop: 08/06/17 20:59 Last Admin: 06/08/17 21:32 Dose: 10 mg Bisacodyl (Dulcolax 10 Mg Supp) 10 mg RC DAILY PRN PRN Reason: Constipation Stop: 08/06/17 19:17 Budesonide (Pulmicort) 0.5 mg HHN BIDRT [place] Stop: 08/07/17 18:59 Last Admin: 06/08/17 19:10 Dose: 0.5 mg Calcium/Vitamin D (Oscal W/Vitamin D) 1 tab GT DAILY [place] Stop: 08/07/17 08:59 Last Admin: 06/09/17 10:05 Dose: 1 tab Chlorhexidine Gluconate (Peridex) 15 ml MM Q12HR [place] Stop: 08/06/17 20:59 Last Admin: 06/09/17 09:00 Dose: 15 ml Clonazepam (Klonopin) 2 mg GT DAILY [place] Stop: 08/07/17 08:59 Last Admin: 06/09/17 10:05 Dose: 2 mg Docusate Sodium (Colace) 100 mg GT BID [place] Stop: 08/06/17 20:59 Last Admin: 06/09/17 09:00 Dose: Not Given Ferrous Sulfate (Iron) 300 mg GT BID [place] Stop: 08/06/17 20:59 Last Admin: 06/09/17 10:03 Dose: 300 mg Folic Acid (Folate) 2.5 mg GT DAILY [place] Stop: 08/07/17 08:59 Last Admin: 06/09/17 10:05 Dose: 2.5 mg Hydralazine HCl (Apresoline) 50 mg GT Q8HR [place] Stop: 08/06/17 20:59 Last Admin: 06/09/17 12:56 Dose: 50 mg Cefepime HCl 1 gm/ Dextrose 50 mls @ 100 mls/hr IV Q8H [place] Stop: 08/07/17 00:59 Last Infusion: 06/09/17 09:30 Dose: Infused Vancomycin HCl 1.25 gm/ Sodium (Chloride) 250 mls @ 165 mls/hr IV Q12H [place] Stop: 08/07/17 09:59 Last Infusion: 06/09/17 11:31 Dose: Infused Dextrose (D5w) 1,000 mls @ 150 mls/hr IV .Q6H40M [place] Stop: 08/07/17 09:37 Last Admin: 06/09/17 07:33 Dose: 150 mls/hr Lactobacillus Rhamnosus (Culturelle) 1 each PO DAILY [place] Stop: 08/08/17 08:59 Last Admin: 06/09/17 10:04 Dose: 1 each Lactulose (Cephulac) 30 gm GT Q8HR [place] Stop: 08/06/17 20:59 Last Admin: 06/09/17 12:56 Dose: Not Given Levetiracetam (Keppra) 1,000 mg GT Q8HR [place] Stop: 08/06/17 20:59 Last Admin: 06/09/17 12:56 Dose: 1,000 mg Magnesium Hydroxide (Milk Of Magnesia) 30 ml GT HS PRN PRN Reason: Constipation Stop: 08/06/17 19:17 Magnesium Oxide (Mag-Oxide) 400 mg GT DAILY [place] Stop: 08/07/17 08:59 Last Admin: 06/09/17 10:04 Dose: 400 mg Metoprolol Tartrate (Lopressor) 100 mg GT Q12HR [place] Stop: 08/06/17 20:59 Last Admin: 06/09/17 10:04 Dose: 100 mg Miscellaneous (Vancomycin Iv Per Pharmacy) 1 ea PRN PRN PRN Reason: PROTOCOL Stop: 08/07/17 07:59 Miscellaneous (Probiotic Screen) 1 ea PRN PRN PRN Reason: PROTOCOL Stop: 08/07/17 10:42 Phytonadione (Mephyton) 10 mg GT DAILY [place] Stop: 08/07/17 19:59 Last Admin: 06/09/17 10:06 Dose: 10 mg Potassium Chloride (Potassium Chloride Elixir) 20 meq GT BID [place] Stop: 08/07/17 08:59 Last Admin: 06/09/17 11:30 Dose: 20 meq Propranolol HCl (Inderal) 20 mg GT TID [place] Stop: 08/06/17 20:59 Last Admin: 06/09/17 10:03 Dose: 20 mg Pyridoxine HCl (Vitamin B6) 100 mg GT DAILY [place] Stop: 08/07/17 08:59 Last Admin: 06/09/17 10:05 Dose: 100 mg Rifaximin (Xifaxan) 500 mg PO BID [place] Stop: 08/07/17 16:59 Last Admin: 06/09/17 10:06 Dose: 500 mg Sodium Phosphate (Fleet Enema) 135 ml RC Q48H PRN PRN Reason: IF DULCOLAX IS INEFFECTIVE Stop: 08/06/17 19:17 Thiamine HCl (Vitamin B1) 100 mg GT DAILY [place] Stop: 08/07/17 08:59 Last Admin: 06/09/17 10:05 Dose: 100 mg Valproate Sodium (Depakene) 500 mg GT TID [place] PRN Reason: Protocol Stop: 08/06/17 20:59 Last Admin: 06/09/17 10:03 Dose: 500 mg CXR: CM, B/L ATx electrolytes has improved On D5W @ 75 ml/hr, Na down to 143 F/U electrolytes, cbc continue lactulose, ivf Lab - Result Diagrams 06/26/17 04:41 06/26/17 04:41 Nutritional Asmnt/Malnutr-PDOC - Dietary Evaluation Malnutrition Findings (Please click <Entered> for more info): Nutritional Asmnt/Malnutrition Start: 06/09/17 11: 00 Text: Status: Complete Freq: Document 06/09/17 13:09 [facility] [address] (Rec: 06/09/17 13:27 [facility] [address] [id number]) Nutritional Asmnt/Malnutrition Patient General Information Nutritional Screening High Risk Screening Diagnosis Sepsis, UTI, right and left lower lobe infiltrate, pneumonia Pertinent Medical Hx/Surgical Hx Alcohol problem, liver disease , cirrhosis of the liver, hepatic comas, seizures, trachestomy, PEG, asthma, COPD Subjective Information Pt is a 52-year-old male from [facility] admitted with chief complaint of shortness of breath and falling oxygen saturation. Pt has tracheostomy to ventilator. Pt was unable to provide nutritional hx. Pt appears well nourished with no signs of muscle or fat depletion. Order to resume tube feeding; bag of Novosource Renal at bedside not yet started. Abdomen Ultrasound 06/09 notes some abdominal ascites. Current Diet Order/ Nutrition Support Novosource Renal at 55 ml/hr = 2640kcals, 120gm protein, 946ml free water Patient / S.O Can't verbalize diet edu Pertinent Medications Oscal with Vitamin D, Cefepime , D5w, Iron, Folate, Culturelle, MagOxide, Mephyton , KCl Elixir, Vitamin B6, Vitamin B1, Depakene, Vancomycin Pertinent Labs (06/09) Na 148H (improving), K 3L, Alkaline Phosphatase 171H, Ammonia 64H, Albumin 3.3L Nutritional Hx/Data Height 1.68 m Height (Calculated Centimeters) 167.6 Current Weight (lbs) 76.657 kg Weight (Calculated Kilograms) 76.7 Weight (Calculated Grams) 46872.1 Usual body Weight (lbs) 168 % Usual Body Weight 100 [place] Body Weight 142 % [place] Body Weight 119 Recent Weight Change No Weight Status Overweight GI Symptoms GI Symptoms Diarrhea Difficult in: Chewing Swallowing Food Allergies No Usual diet at home Nepro 1.8 (237 ml) QID 0900, 1300, 1700, 2100, sugar free ProStat 30 ml Skin Integrity/Comment: Vitor Thomas. Skin intact. Estimated Nutritional Goals BEE in Kcals: Using Current wt Calories/Kcals/Kg Based on current wt 76.8 kg with consideration of sepsis: Kcals Calculated 3544-2368 kcals/day (27-32 kcals/kg) to prevent wt gain with overwt status Protein: Using Current wt Protein g/kg: Based on current wt 76.8 kg with consideration of sepsis: Protein Calculated 92-115 gm/day (1.2-1.5 gm/kg) Fluid: ml Per MD/DO due to abnormal electrolytes Nutritional Problem 1. Problem Problem Excessive intake from enteral nutrition related to Etiology increased energy intake from calorically dense tube feeding formula as evidenced by Signs/Symptoms: current tube feeding meets 104 % of higher end of estimated calories needs. Malnutrition Alert Protein-Calorie Malnutrition N/A Is there a minimum of two criteria No selected? Query Text:Check all the applicable criteria. A minimum of two criteria are recommended for diagnosis of either severe or non-severe malnutrition. Malnutrition Related to Morbid Obesity Malnutrition related to morbid obesity No Intervention/Recommendation Recommendations by RD Decrease Calorie Intake Comments 1. Recommend decrease tube feeding Novosource Renal at goal rate of 50 ml/hr to provide 2400 kcals, 109 gm protein, and 860 ml free water per day. Monitor renal labs to prioritize protein needs. Expected Outcomes/Goals Expected Outcomes/Goals Provide pt with 100% of estimated nutritional needs. Physician Parameters for PEM Serum Albumin (g/dl) 3.1 - 3.4 (Mild)
[2017-06-26] MEDS: Atorvastatin Calcium 10 MG TAB GT SCH (20:39)
[2017-06-27] MEDS: Albuterol/Ipratropium Neb 3 ML AERS HHN SCH ×2 (02:31→07:50)
[2017-06-27 05:23] LABS: HEMOGLOBIN 8.2 gm/dL (13.2-17.3); MEAN CELL VOLUME 93.9 fl (80-99); MEAN CORPUSCULAR HEMOGLOBIN 32.1 pg (26.0-30.0); MEAN CORPUSCULAR HGB CONC 34.2 pg (28.0-36.0); MEAN PLATELET VOLUME 10.6 fl; RED BLOOD COUNT 2.56 Mil/cmm (4.30-5.70); RED CELL DISTRIBUTION WIDTH 14.4 % (11.5-20.0)
[2017-06-27 05:36] LABS: ALB/GLOB RATIO 0.5 (1.0-1.8); ALKALINE PHOSPHATASE 138 U/L (34-104); ANION GAP 5.5 (7.0-16.0); BILIRUBIN,TOTAL 0.8 mg/dL (0.3-1.0); BUN - UREA NITROGEN 23 mg/dL (7-25); BUN/CREATININE RATIO 38.3; CALCIUM SERUM 8.9 mg/dL (8.6-10.3); CARBON DIOXIDE 25.3 mEq/L (21.0-31.0); CHLORIDE 113 mEq/L (98-107); CREATININE - SERUM 0.6 mg/dL (0.7-1.3); GLUCOSE 99 mg/dL (70-105); MAGNESIUM 1.8 mg/dL (1.9-2.7); POTASSIUM SERUM 3.8 mEq/L (3.5-5.1); SGOT 40 U/L (13-39); SGPT/ALT 19 U/L (7-52); SODIUM SERUM 140 mEq/L (136-145)
[2017-06-27] MEDS: Levetiracetam 500 mg/5mL 5mL UDC GT SCH (05:40)
[2017-06-27] MEDS: Lactulose 10 Gm/15 mL 30mL UDC GT SCH (05:40)
[2017-06-27] MEDS: Dextrose 5% 1,000 ML IV SCH (06:38)
[2017-06-27 07:32] LABS: HEMATOCRIT 24.4 % (39.0-49.0); WHITE BLOOD COUNT 3.8 Th/cmm (4.8-10.8)
[2017-06-27 07:33] LABS: PLATELET COUNT NOT ABLE TO PERFORM Th/cmm (150-400)
[2017-06-27 07:43] LABS: BAND NEUTROPHILE 2 % (0-10); BASOPHIL 1 % (0-3); EOSINOPHIL 1 % (0-5); NEUTROPHILS 47 % (40-80); TOTAL CELLS COUNTED 100
[2017-06-27 07:44] LABS: ANISOCYTOSIS 1+; PLATELET ESTIMATE DECREASED PLATELETS (NORMAL); PLATELET MORPHOLOGY PLATELET CLUMPS SEEN (NORMAL); POLYCHROMASIA 1+
[2017-06-27] MEDS: Budesonide 0.5 Mg/2 mL Ud HHN SCH (07:51)
[2017-06-27] MEDS: Calcium Carb/Vit D 500 mg/200 U Tab GT SCH (08:13)
[2017-06-27] MEDS: Chlorhexidine Gluconate 0.12% 15mL Mouthwash MM SCH (08:13)
[2017-06-27] MEDS: Lactobacillus Rhamnosus 10 Billion CFU Capsule PO SCH (08:13)
[2017-06-27] MEDS: Potassium Chloride Elixir 20 mEq /15 mL UDC GT SCH (08:24)
--- NOTE | 2017-06-27 08:49 | General Progress Note ---
Subjective - Review of Systems Events since last encounter: patient with no acute distress on vent Subjective: on vent, afebrile nad Objective - Results Result Diagrams: 06/27/17 04:33 06/27/17 04:33 Recent Labs: Laboratory Last Values WBC 3.8 Th/cmm (4.8-10.8) L 06/27/17 04:33 RBC 2.56 Mil/cmm (4.30-5.70) L 06/27/17 04:33 Hgb 8.2 gm/dL (13.2-17.3) L 06/27/17 04:33 Hct 24.4 % (39.0-49.0) L 06/27/17 04:33 MCV 93.9 fl (80-99) 06/27/17 04:33 MCH 32.1 pg (26.0-30.0) H 06/27/17 04:33 MCHC Differential 34.2 pg (28.0-36.0) 06/27/17 04:33 RDW 14.4 % (11.5-20.0) 06/27/17 04:33 Plt Count NOT ABLE TO PERFORM Th/cmm (150-400) D 06/27/17 04:33 MPV 10.6 fl 06/27/17 04:33 Neutrophils % 59.2 % (40.0-80.0) 06/23/17 04:41 Band Neutrophils % 2 % (0-10) 06/27/17 04:33 Lymphocytes % 24.9 % (20.0-50.0) 06/23/17 04:41 Monocytes % 12.4 % (2.0-10.0) H 06/23/17 04:41 Eosinophils % 3.3 % (0.0-5.0) 06/23/17 04:41 Basophils % 0.2 % (0.0-2.0) 06/23/17 04:41 Neutrophils (Manual) 47 % (40-80) 06/27/17 04:33 Lymphocytes 43 % (20-50) 06/27/17 04:33 Monocytes 5 % (2-10) 06/27/17 04:33 Eosinophils 1 % (0-5) 06/27/17 04:33 Basophils 1 % (0-3) 06/27/17 04:33 Metamyelocytes 2 % (0-0) H 06/13/17 07:20 Myelocytes 1 % 06/13/17 07:20 Nucleated RBCs 1.0 % (0-0) H 06/08/17 04:59 Atypical Lymphocytes 1 % 06/27/17 04:33 Platelet Estimate DECREASED PLATELETS (NORMAL) 06/27/17 04:33 Platelet Morphology PLATELET CLUMPS SEEN (NORMAL) 06/27/17 04:33 Polychromasia 1+ 06/27/17 04:33 Anisocytosis 1+ 06/27/17 04:33 RBC Morph Micro Appear ABNORMAL (NORMAL) 06/27/17 04:33 Specimen Source ARTERIAL 06/10/17 08:43 Sample Site Left Radial 06/10/17 08:43 pH 7.46 (7.35-7.45) H 06/10/17 08:43 pCO2 36.0 mmHg (35.0-45.0) 06/10/17 08:43 pO2 92.0 mmHg (80.0-100.0) 06/10/17 08:43 HCO3 26.4 mEq/L (20.0-26.0) H 06/10/17 08:43 Base Excess 1.9 mEq/L (-3.0-3.0) 06/10/17 08:43 O2 Saturation 98.0 % (92.0-100.0) 06/10/17 08:43 Jose L Test POSITIVE 06/10/17 08:43 Vent Rate 12 06/10/17 08:43 Inspired O2 40 06/10/17 08:43 Tidal Volume 500 06/10/17 08:43 PEEP 5 06/10/17 08:43 Pressure (ins/psv/peep) N/A 06/10/17 08:43 Critical Value SAURABH 06/10/17 08:43 Sodium 140 mEq/L (136-145) 06/27/17 04:33 Potassium 3.8 mEq/L (3.5-5.1) 06/27/17 04:33 Chloride 113 mEq/L (98-107) H 06/27/17 04:33 Carbon Dioxide 25.3 mEq/L (21.0-31.0) 06/27/17 04:33 Anion Gap 5.5 (7.0-16.0) L 06/27/17 04:33 BUN 23 mg/dL (7-25) 06/27/17 04:33 Creatinine 0.6 mg/dL (0.7-1.3) L 06/27/17 04:33 Est GFR ( Amer) > 60.0 ml/min (>90) 06/27/17 04:33 Est GFR (Non-Af Amer) > 60.0 ml/min 06/27/17 04:33 BUN/Creatinine Ratio 38.3 06/27/17 04:33 Glucose 99 mg/dL (70-105) 06/27/17 04:33 Plasma/Ser Osmolality 313 mOsmol/kg (275-295) H 06/09/17 05:07 Whole Bld Lactic Acid 1.51 mmol/L (0.60-1.99) 06/08/17 04:59 Calcium 8.9 mg/dL (8.6-10.3) 06/27/17 04:33 Phosphorus 2.7 mg/dL (2.5-5.0) 06/08/17 04:59 Magnesium 1.8 mg/dL (1.9-2.7) L 06/27/17 04:33 Iron 71 ug/dL (38-169) 06/08/17 04:59 TIBC 173 ug/dL (250-450) L 06/08/17 04:59 Iron Saturation 41 % (15-55) 06/08/17 04:59 Unsaturated IBC 102 ug/dL (111-343) L 06/08/17 04:59 Ferritin 303 ng/mL (30-400) 06/08/17 04:59 Total Bilirubin 0.8 mg/dL (0.3-1.0) 06/27/17 04:33 Direct Bilirubin 0.29 mg/dL (0.0-0.2) H 06/16/17 04:40 AST 40 U/L (13-39) H 06/27/17 04:33 ALT 19 U/L (7-52) 06/27/17 04:33 Alkaline Phosphatase 138 U/L (34-104) H 06/27/17 04:33 Ammonia 77 umol/L (16-53) H 06/27/17 04:33 Troponin I 0.01 ng/mL (0.01-0.05) 06/07/17 13:28 B-Natriuretic Peptide 91.8 pg/mL (5.0-100.0) 06/07/17 13:28 Total Protein 7.3 gm/dL (6.0-8.3) 06/27/17 04:33 Albumin 2.5 gm/dL (4.2-5.5) L 06/27/17 04:33 Globulin 4.8 gm/dL 06/27/17 04:33 Albumin/Globulin Ratio 0.5 (1.0-1.8) L 06/27/17 04:33 Vitamin B12 >1999 pg/mL (211-946) H 06/08/17 04:59 Folic Acid >20.0 ng/mL (>3.0) 06/08/17 04:59 Urine Source RANDOM 06/07/17 13:25 Urine Color NISA 06/07/17 13:25 Urine Clarity CLOUDY (CLEAR) 06/07/17 13:25 Urine pH 5.5 (4.6 - 8.0) 06/07/17 13:25 Ur Specific Lowry 1.020 (1.005-1.030) 06/07/17 13:25 Urine Protein >=300 mg/dL (NEGATIVE) 06/07/17 13:25 Urine Glucose (UA) NEGATIVE mg/dL (NEGATIVE) 06/07/17 13:25 Urine Ketones 15 mg/dL (NEGATIVE) H 06/07/17 13:25 Urine Blood LARGE (NEGATIVE) H 06/07/17 13:25 Urine Nitrate POSITIVE (NEGATIVE) H 06/07/17 13:25 Urine Bilirubin MODERATE (NEGATIVE) H 06/07/17 13:25 Urine Urobilinogen 2.0 E.U./dL (0.2 - 1.0) 06/07/17 13:25 Ur Leukocyte Esterase MODERATE (NEGATIVE) H 06/07/17 13:25 Urine RBC >100 /hpf (0-5) H 06/07/17 13:25 Urine WBC 2-5 /hpf (0-5) H 06/07/17 13:25 Ur Epithelial Cells OCCASIONAL /lpf (FEW) 06/07/17 13:25 Urine Bacteria FEW /hpf (NONE SEEN) 06/07/17 13:25 Urine Osmolality 776 mOsmol/kg 06/09/17 05:53 Ur Random Sodium 119 mmol/L 06/08/17 18:16 Stool Occult Blood NEGATIVE (NEGATIVE) 06/22/17 07:15 Vancomycin Trough 22.8 ug/mL (10-20) H 06/24/17 09:08 Blood Type O POSITIVE 06/09/17 09:30 Antibody Screen NEGATIVE 06/09/17 09:30 - Physical Exam Vitals and I&O: Vital Signs Temp 98.9 F 06/27/17 04:00 Pulse 68 06/27/17 08:37 Resp 12 06/27/17 06:51 BP 96/54 06/27/17 08:37 Pulse Ox 99 06/27/17 07:52 Intake & Output 06/26/17 06/27/17 06/27/17 18:59 06:59 18:59 Intake Total 1350 1800 Output Total 720 1300 Balance 630 500 Weight (lbs) 82.27 kg 81.817 kg Intake: Intake, IV Amount 1000 Dextrose 5% 1,000 ml @ 75 1000 mls/hr IV .[id number] [facility] Rx#:[id number] Tube Feeding 600 600 Other 750 200 Output: Urine 520 400 Stool 200 900 Other: # Bowel Movements 600 Stool Characteristics Liquid Liquid Brown Active Medications: Current Medications Albuterol/Ipratropium (Duoneb Neb) 3 ml HHN Q4HRT [place] Stop: 08/07/17 18:59 Last Admin: 06/27/17 07:50 Dose: 3 ml Amlodipine Besylate (Norvasc) 5 mg GT Q12HR [place] Stop: 08/06/17 20:59 Last Admin: 06/27/17 08:37 Dose: Not Given Artificial Tears (Artificial Tears Ophth Soln) 2 drop EACH EYE Q6H PRN PRN Reason: eye dryness Stop: 08/06/17 20:54 Last Admin: 06/16/17 09:32 Dose: 2 drop Atorvastatin Calcium (Lipitor) 10 mg GT HS [place] PRN Reason: Protocol Stop: 08/06/17 20:59 Last Admin: 06/26/17 20:39 Dose: 10 mg Bisacodyl (Dulcolax 10 Mg Supp) 10 mg RC DAILY PRN PRN Reason: Constipation Stop: 08/06/17 19:17 Budesonide (Pulmicort) 0.5 mg HHN BIDRT [place] Stop: 08/07/17 18:59 Last Admin: 06/27/17 07:51 Dose: 0.5 mg Calcium/Vitamin D (Oscal W/Vitamin D) 1 tab GT DAILY [place] Stop: 08/07/17 08:59 Last Admin: 06/27/17 08:13 Dose: 1 tab Chlorhexidine Gluconate (Peridex) 15 ml MM 0800,1999 [place] Stop: 08/08/17 19:59 Last Admin: 06/27/17 08:13 Dose: 15 ml Clonazepam (Klonopin) 2 mg GT DAILY [place] PRN Reason: Protocol Stop: 08/20/17 13:44 Last Admin: 06/27/17 08:12 Dose: 2 mg Colistimethate Sodium (Colistin) 75 mg HHN BIDRT [place] Stop: 08/25/17 10:59 Last Admin: 06/27/17 07:51 Dose: 75 mg Folic Acid (Folate) 2.5 mg GT DAILY [place] Stop: 08/07/17 08:59 Last Admin: 06/27/17 08:12 Dose: 2.5 mg Hydralazine HCl (Apresoline) 50 mg GT Q8HR [place] Stop: 08/06/17 20:59 Last Admin: 06/27/17 05:30 Dose: Not Given Dextrose (D5w) 1,000 mls @ 75 mls/hr IV .[id number] [place] Stop: 08/22/17 13:22 Last Admin: 06/27/17 06:38 Dose: 75 mls/hr Lactobacillus Rhamnosus (Culturelle) 1 each PO DAILY [place] Stop: 08/08/17 08:59 Last Admin: 06/27/17 08:13 Dose: 1 each Lactulose (Cephulac) 30 gm GT Q6HR [place] Stop: 08/08/17 17:59 Last Admin: 06/27/17 05:40 Dose: 30 gm Levetiracetam (Keppra) 1,000 mg GT Q8HR [place] Stop: 08/06/17 20:59 Last Admin: 06/27/17 05:40 Dose: 1,000 mg Lorazepam (Ativan) 1 mg IVP Q6H PRN; Protocol PRN Reason: Agitation Stop: 08/13/17 23:17 Last Admin: 06/27/17 01:52 Dose: 1 mg Magnesium Hydroxide (Milk Of Magnesia) 30 ml GT HS PRN PRN Reason: Constipation Stop: 08/06/17 19:17 Magnesium Oxide (Mag-Oxide) 400 mg GT DAILY [facility] Stop: 08/07/17 08:59 Last Admin: 06/27/17 08:13 Dose: 400 mg Metoprolol Tartrate (Lopressor) 100 mg GT Q12HR [facility] Stop: 08/06/17 20:59 Last Admin: 06/27/17 08:37 Dose: Not Given Miscellaneous (Probiotic Screen) 1 ea MC PRN PRN PRN Reason: PROTOCOL Stop: 08/07/17 10:42 Phytonadione (Mephyton) 10 mg GT DAILY [facility] Stop: 08/07/17 19:59 Last Admin: 06/27/17 08:36 Dose: 10 mg Potassium Chloride (Potassium Chloride Elixir) 20 meq GT TID [facility] Stop: 08/12/17 13:59 Last Admin: 06/27/17 08:24 Dose: 20 meq Propranolol HCl (Inderal) 20 mg GT TID [facility] Stop: 08/06/17 20:59 Last Admin: 06/27/17 08:37 Dose: Not Given Pyridoxine HCl (Vitamin B6) 100 mg GT DAILY [facility] Stop: 08/07/17 08:59 Last Admin: 06/27/17 08:13 Dose: 100 mg Sodium Phosphate (Fleet Enema) 135 ml RC Q48H PRN PRN Reason: IF DULCOLAX IS INEFFECTIVE Stop: 08/06/17 19:17 Temazepam (Restoril) 15 mg GT HS PRN; Protocol PRN Reason: Insomnia Stop: 08/19/17 19:18 Last Admin: 06/26/17 20:40 Dose: 15 mg Thiamine HCl (Vitamin B1) 100 mg GT DAILY [facility] Stop: 08/07/17 08:59 Last Admin: 06/27/17 08:13 Dose: 100 mg Valproate Sodium (Depakene) 500 mg GT TID [place] PRN Reason: Protocol Stop: 08/06/17 20:59 Last Admin: 06/27/17 08:24 Dose: 500 mg General: Alert, No acute distress HEENT: Atraumatic, PERRLA, EOMI, Mucous membr. moist/pink, Other (tracheostomy) Neck: Supple, +2 carotid pulse wo bruit, Other (tracheostomy) Cardiovascular: Regular rate, Normal S1, Normal S2 Lungs: Clear to auscultation, Other (tracheostomy) Abdomen: Bowel sounds, Soft, Distended, Other (gastric tube and rectal tube) Extremities: no Edema Neurological: Sensation intact Skin: no Rash Psych/Mental Status: Mood NL - Procedures Procedures: Procedures Procedure Code Date RESPIRATORY VENTILATION, GREATER THAN 96 CONSECUTIVE HOURS [id number] 06/07/17 Assessment/Plan - Problem List Patient Problems: All Active Problems ELEVATED NA+, AND BUN LEVELS (Acute) Status post tracheostomy (Acute) Z93.0 Status post tracheostomy (Acute) Z93.0 - Assessment Assessment: s/p respiratory failure pnumonia s/p trch and peg trmors h/o alcoholism h/o sizures - Plan Plan: iv antibiotics vent support continue current plan of care am labs Nutritional Asmnt/Malnutr-PDOC - Dietary Evaluation Malnutrition Findings (Please click <Entered> for more info): Nutritional Asmnt/Malnutrition Start: 06/09/17 11: 00 Text: Status: Complete Freq: Document 06/09/17 13:09 [facility] (Rec: 06/09/17 13:27 [facility] [id number]) Nutritional Asmnt/Malnutrition Patient General Information Nutritional Screening High Risk Screening Diagnosis Sepsis, UTI, right and left lower lobe infiltrate, pneumonia Pertinent Medical Hx/Surgical Hx Alcohol problem, liver disease , cirrhosis of the liver, hepatic comas, seizures, trachestomy, PEG, asthma, COPD Subjective Information Pt is a 52-year-old male from [facility] admitted with chief complaint of shortness of breath and falling oxygen saturation. Pt has tracheostomy to ventilator. Pt was unable to provide nutritional hx. Pt appears well nourished with no signs of muscle or fat depletion. Order to resume tube feeding; bag of Novosource Renal at bedside not yet started. Abdomen Ultrasound 06/09 notes some abdominal ascites. Current Diet Order/ Nutrition Support Novosource Renal at 55 ml/hr = 2640kcals, 120gm protein, 946ml free water Patient / S.O Can't verbalize diet edu Pertinent Medications Oscal with Vitamin D, Cefepime , D5w, Iron, Folate, Culturelle, MagOxide, Mephyton , KCl Elixir, Vitamin B6, Vitamin B1, Depakene, Vancomycin Pertinent Labs (06/09) Na 148H (improving), K 3L, Alkaline Phosphatase 171H, Ammonia 64H, Albumin 3.3L Nutritional Hx/Data Height 1.68 m Height (Calculated Centimeters) 167.6 Current Weight (lbs) 76.657 kg Weight (Calculated Kilograms) 76.7 Weight (Calculated Grams) 98014.1 Usual body Weight (lbs) 168 % Usual Body Weight 100 [place] Body Weight 142 % [place] Body Weight 119 Recent Weight Change No Weight Status Overweight GI Symptoms GI Symptoms Diarrhea Difficult in: Chewing Swallowing Food Allergies No Usual diet at home Nepro 1.8 (237 ml) QID 0900, 1300, 1700, 2100, sugar free ProStat 30 ml Skin Integrity/Comment: Vitor 12. Skin intact. Estimated Nutritional Goals BEE in Kcals: Using Current wt Calories/Kcals/Kg Based on current wt 76.8 kg with consideration of sepsis: Kcals Calculated 0732-8556 kcals/day (27-32 kcals/kg) to prevent wt gain with overwt status Protein: Using Current wt Protein g/kg: Based on current wt 76.8 kg with consideration of sepsis: Protein Calculated 92-115 gm/day (1.2-1.5 gm/kg) Fluid: ml Per MD/DO due to abnormal electrolytes Nutritional Problem 1. Problem Problem Excessive intake from enteral nutrition related to Etiology increased energy intake from calorically dense tube feeding formula as evidenced by Signs/Symptoms: current tube feeding meets 104 % of higher end of estimated calories needs. Malnutrition Alert Protein-Calorie Malnutrition N/A Is there a minimum of two criteria No selected? Query Text:Check all the applicable criteria. A minimum of two criteria are recommended for diagnosis of either severe or non-severe malnutrition. Malnutrition Related to Morbid Obesity Malnutrition related to morbid obesity No Intervention/Recommendation Recommendations by RD Decrease Calorie Intake Comments 1. Recommend decrease tube feeding Novosource Renal at goal rate of 50 ml/hr to provide 2400 kcals, 109 gm protein, and 860 ml free water per day. Monitor renal labs to prioritize protein needs. Expected Outcomes/Goals Expected Outcomes/Goals Provide pt with 100% of estimated nutritional needs. Physician Parameters for PEM Serum Albumin (g/dl) 3.1 - 3.4 (Mild)
== END 2017-06-27 10:45 | DRG 720 ==
LOC: ER 12:37 → ICU 19:00
PROVIDERS: ADMIT Internal Medicine; ATTEND Internal Medicine
PROC: 5A1955Z Respiratory Ventilation, Greater than 96 Consecutive Hours (ICD-10-PCS; principal; 2017-06-07)
PROC: 30233R1 Transfusion of Nonautologous Platelets into Peripheral Vein, Percutaneous Approach (ICD-10-PCS; 2017-06-09)
PROC: 0D20XUZ Change Feeding Device in Upper Intestinal Tract, External Approach (ICD-10-PCS; 2017-06-25)
DX: A41.9 Sepsis, unspecified organism (principal); J96.21 Acute and chronic respiratory failure with hypoxia; G92 Toxic encephalopathy; Z99.11 Dependence on respirator [ventilator] status; J44.0 Chronic obstructive pulmonary disease with (acute) lower respiratory infection; J18.1 Lobar pneumonia, unspecified organism; J90 Pleural effusion, not elsewhere classified; Z93.0 Tracheostomy status; D69.59 Other secondary thrombocytopenia; K74.60 Unspecified cirrhosis of liver; D69.6 Thrombocytopenia, unspecified; N39.0 Urinary tract infection, site not specified; D64.9 Anemia, unspecified; G40.909 Epilepsy, unspecified, not intractable, without status epilepticus; K72.90 Hepatic failure, unspecified without coma; J98.11 Atelectasis; R16.1 Splenomegaly, not elsewhere classified; E87.0 Hyperosmolality and hypernatremia; B96.20 Unspecified Escherichia coli [E. coli] as the cause of diseases classified elsewhere; B96.89 Other specified bacterial agents as the cause of diseases classified elsewhere; E87.6 Hypokalemia; K72.10 Chronic hepatic failure without coma; K94.23 Gastrostomy malfunction; E86.0 Dehydration; D63.8 Anemia in other chronic diseases classified elsewhere; I10 Essential (primary) hypertension; Y83.8 Other surgical procedures as the cause of abnormal reaction of the patient, or of later complication, without mention of misadventure at the time of the procedure; Y92.89 Other specified places as the place of occurrence of the external cause; E83.52 Hypercalcemia; J04.10 Acute tracheitis without obstruction
CPT/HCPCS: 36415-UA; 36600-90; 71010-TC; 76700-TC; 80048-TC; 80053-TC; 80202-TC; 81001-TC; 82140-TC; 82248-TC; 82270-TC; 82607-90; 82728-90; 82746-90; 82803-TC; 83540-90; 83550-90; 83605; 83735-TC; 83880-TC; 83930-90; 83935-90; 83970-90; 84100-TC; 84300-TC; 84484-TC; 85007-TC; 85025-TC; 85027-TC; 86850-TC; 86900-TC; 86901-TC; 87070; 87086-90; 93005; 94002; 94003; 94640; 94760; J0692; J0696; J0770; J1956; J2060; J2185; J3370; J7030; J7040; J7070; P9035; X7704; Z7610